=== PATIENT | female | born 1950 | race Caucasian/White ===

== ENCOUNTER 2018-09-02 15:11 | Outpatient (CLI) | payer MEDICARE, BC, SELFPAY ==
[2018-09-02 16:23] LABS: BUN 45 mg/dL (7-18); CREATININE 1.41 mg/dL (0.55-1.02); Chloride 103 mmol/L (98-107); Estimated GFR 36.98 (mL/min/1.73m2); Glucose 173 mg/dL (70-100); Potassium 4.2 mmol/L (3.5-5.1); Sodium 140 mmol/L (136-145)
[2018-09-03 11:08] LABS: Hepatitis C Ab w Rflx HCV PCR Negative (NEGAT)
== END 2018-09-02 15:31 ==
PROVIDERS: PCP Student in an Organized Health Care Education/Training Program; Visit Provider Student in an Organized Health Care Education/Training Program
DX: Z11.9 Encounter for screening for infectious and parasitic diseases, unspecified (principal); N18.9 Chronic kidney disease, unspecified; T50.905A Adverse effect of unspecified drugs, medicaments and biological substances, initial encounter
CPT/HCPCS: 36415; 80048; 86803

== ENCOUNTER 2018-12-01 00:15 | Outpatient (CLI) | payer MEDICARE, BC, SELFPAY ==
--- NOTE | 2018-12-01 14:26 | DI.MAMMO_ITS ---
SYMPTOMS/DIAGNOSIS: SCREENING, Z12.31 MAMMOGRAM: Mammograms were interpreted according to the usual protocol including computer analysis with CAD system, tomosynthesis and C view imaging. The breasts are of moderate density with fairly symmetric distribution of fibroglandular tissue. No dominant mass or clumped microcalcification is identified in either breast. The current examination is compared with previous examinations including April 2016 and there has been no gross interval change in appearance in comparison with the previous studies. CONCLUSION: No specific evidence of malignancy at this time. Routine screening examinations are suggested at yearly intervals due to the family history of breast carcinoma. Category I. Breast density Category B. MQSA ASSESSMENT OF FINDINGS: Negative. Category 1. Patient will receive a letter notifying them of these results. BI-RADS category B. There are scattered areas of fibroglandular density.
== END 2018-12-01 00:35 ==
PROVIDERS: PCP Student in an Organized Health Care Education/Training Program; Visit Provider Student in an Organized Health Care Education/Training Program
DX: Z12.31 Encounter for screening mammogram for malignant neoplasm of breast (principal)
CPT/HCPCS: 77063; 77067

== ENCOUNTER 2019-11-19 03:08 | Outpatient (CLI) | payer MEDICARE, BC, SELFPAY ==
[2019-11-19 10:59] LABS: HCT 38.3 % (36.0-46.0); MCH 28.9 pg (27.0-33.0); MCHC 31.3 % (32.0-36.0); MCV 92.3 fL (80-95); MPV 10.6 fL (8.0-11.0); Platelet Count 257 10^3/uL (130-400); RBC 4.15 10^6/uL (3.93-5.22); RDW 13.5 % (11.7-14.6); RDW-SD 45.7 fL; WBC 7.71 10^3/uL (4.4-10.8)
[2019-11-19 11:09] LABS: Hemoglobin A1C 8.2 % (3.8-5.6)
[2019-11-19 11:53] LABS: ALT 15 U/L (14-59); AST 15 U/L (15-37); Albumin 3.8 g/dL (3.4-5.0); Alkaline Phosphatase 98 U/L (46-116); Anion Gap 9.7 mmol/L (3-11); BUN 36 mg/dL (7-18); Bilirubin, Total 0.3 mg/dL (0.2-1.0); CO2 29.3 mmol/L (21.0-32.0); CREATININE 1.68 mg/dL (0.55-1.02); Calcium 10.3 mg/dL (8.5-10.1); Chloride 103 mmol/L (98-107); Estimated GFR 30.04 (mL/min/1.73m2); Glucose 163 mg/dL (74-106); LDH 167 U/L (81-234); Magnesium 1.4 mg/dL (1.8-2.4); PHOSPHORUS 4.2 mg/dL (2.6-4.7); Potassium 4.3 mmol/L (3.5-5.1); Sodium 142 mmol/L (136-145)
[2019-11-19 12:04] LABS: Calculated LDL 65 mg/dL (<100); Cholesterol 146 mg/dL (<200); HDL Cholesterol 56 mg/dL (40-60); Triglyceride 127 mg/dL (<150)
[2019-11-24 15:02] LABS: PTH-Related Peptide 0.5 pmol/L (< or = 4.2)
== END 2019-11-19 03:28 ==
PROVIDERS: PCP Student in an Organized Health Care Education/Training Program; Visit Provider Student in an Organized Health Care Education/Training Program
DX: E11.22 Type 2 diabetes mellitus with diabetic chronic kidney disease (principal); I10 Essential (primary) hypertension; N18.3 Chronic kidney disease, stage 3 (moderate); Z79.4 Long term (current) use of insulin; E11.9 Type 2 diabetes mellitus without complications; E55.9 Vitamin D deficiency, unspecified; Z86.39 Personal history of other endocrine, nutritional and metabolic disease; M19.90 Unspecified osteoarthritis, unspecified site
CPT/HCPCS: 36415; 80053; 80061; 85027; 82397; 83036; 83615; 83735; 84100

== ENCOUNTER 2020-08-31 03:19 | Outpatient (CLI) | payer MEDICARE, BC, SELFPAY ==
[2020-08-31 14:35] LABS: Hemoglobin A1C 8.7 % (<5.7)
[2020-08-31 14:43] LABS: BUN 26 mg/dL (7-18); CREATININE 1.4 mg/dL (0.55-1.02); Calcium 8.9 mg/dL (8.5-10.1); Chloride 106 mmol/L (98-107); Estimated GFR 37.07 (mL/min/1.73m2); Glucose 139 mg/dL (74-106); Potassium 4.5 mmol/L (3.5-5.1); Sodium 144 mmol/L (136-145)
[2020-09-01 01:13] LABS: Vitamin D 25 Total 45.8 ng/mL (30-100)
== END 2020-08-31 03:20 | disposition home or self-care (01) ==
LOC: LBO 03:19
PROVIDERS: PCP Student in an Organized Health Care Education/Training Program; Visit Provider Student in an Organized Health Care Education/Training Program
DX: E11.22 Type 2 diabetes mellitus with diabetic chronic kidney disease (principal); N18.30 Chronic kidney disease, stage 3 unspecified; Z79.4 Long term (current) use of insulin; E55.9 Vitamin D deficiency, unspecified; E83.42 Hypomagnesemia
CPT/HCPCS: 36415; 80048; 82306; 83036; 83735

== ENCOUNTER 2021-03-01 02:44 | Outpatient (CLI) | payer MEDICARE, BC, SELFPAY ==
[2021-03-01 13:25] LABS: HCT 35.9 % (36.0-46.0); HGB 10.9 g/dL (11.2-15.7); MCH 27.8 pg (27.0-33.0); MCHC 30.4 % (32.0-36.0); MCV 91.6 fL (80-95); Platelet Count 256 10^3/uL (130-400); RBC 3.92 10^6/uL (3.93-5.22); RDW 13.9 % (11.7-14.6); RDW-SD 47.2 fL; WBC 8.93 10^3/uL (4.4-10.8)
[2021-03-01 16:10] LABS: Calcium 8.9 mg/dL (8.5-10.1); Glucose 222 mg/dL (74-106)
[2021-03-01 16:11] LABS: Anion Gap 8.2 mmol/L (3-11); BUN 27 mg/dL (7-18); CO2 29.8 mmol/L (21.0-32.0); CREATININE 1.5 mg/dL (0.55-1.02); Calculated LDL 77 mg/dL (<100); Chloride 104 mmol/L (98-107); Cholesterol 158 mg/dL (<200); Estimated GFR 34.13 (mL/min/1.73m2); HDL Cholesterol 54 mg/dL (40-60); Potassium 4.4 mmol/L (3.5-5.1); Sodium 142 mmol/L (136-145); TSH (W/Ref FT4) 2.53 uIU/mL (0.36-3.74); Triglyceride 135 mg/dL (<150)
== END 2021-03-01 02:45 | disposition home or self-care (01) ==
LOC: LBO 02:44
PROVIDERS: PCP Student in an Organized Health Care Education/Training Program; Visit Provider Student in an Organized Health Care Education/Training Program
DX: E11.22 Type 2 diabetes mellitus with diabetic chronic kidney disease; N18.30 Chronic kidney disease, stage 3 unspecified
CPT/HCPCS: 36415; 80048; 80061; 85027; 84443

== ENCOUNTER 2021-07-19 02:56 | Outpatient (CLI) | payer MEDICARE, BC, SELFPAY ==
[2021-07-19 13:06] LABS: HCT 36.2 % (36.0-46.0); MCH 28.1 pg (27.0-33.0); MCHC 30.4 % (32.0-36.0); MCV 92.6 fL (80-95); MPV 9.9 fL (8.0-11.0); Platelet Count 242 10^3/uL (130-400); RBC 3.91 10^6/uL (3.93-5.22); RDW 14.1 % (11.7-14.6); RDW-SD 47.9 fL; WBC 7.77 10^3/uL (4.4-10.8)
[2021-07-19 14:00] LABS: Anion Gap 5.4 mmol/L (3-11); BUN 28 mg/dL (7-18); CO2 30.6 mmol/L (21.0-32.0); CREATININE 1.4 mg/dL (0.55-1.02); Calcium 8.5 mg/dL (8.5-10.1); Chloride 103 mmol/L (98-107); Estimated GFR 36.96 (mL/min/1.73m2); Glucose 198 mg/dL (74-106); Potassium 4.1 mmol/L (3.5-5.1); Sodium 139 mmol/L (136-145)
== END 2021-07-19 02:57 | disposition home or self-care (01) ==
PROVIDERS: Visit Provider Student in an Organized Health Care Education/Training Program
DX: D64.9 Anemia, unspecified (principal); J45.909 Unspecified asthma, uncomplicated; N18.9 Chronic kidney disease, unspecified
CPT/HCPCS: 36415; 80048; 85027

== ENCOUNTER → 2021-10-11 01:10 | Outpatient (CLI) | payer MEDICARE, BC, SELFPAY ==
--- NOTE | 2021-10-11 13:46 | DI.MAMMO_ITS ---
Exam(s) MG MAMMO SCREENING 60 MIN DUR EXAM: MG MAMMO SCREENING 60 MIN DUR CLINICAL HISTORY: breast cancer screening, Z12.39 TECHNIQUE: Bilateral full field digital CC and MLO mammographic images were obtained with 3D tomosyn thesis and utilizing computer aided detection (CAD). COMPARISON: Available for comparison. FINDINGS: Masses/Architectural Distortion: None seen. Microcalcifications: No suspicious pleomorphic-type are seen. Skin Thickening/Nipple Retraction: None. IMPRESSION: 1. No significant interval change with no specific features of malignancy noted. 2. Unless there is more urgent need, screening mammography is recommended, as per [employer] guidelines. BI-RADS Category 1 - Negative Breast Density - Category B - Scattered areas of fibroglandular density Breast density category C or D implies that the patient has dense breast tissue. Dense breast tissue is very common and is not abnormal but dense breast tissue can make it harder to find cancer on a ma mmogram. Also, dense breast tissue may increase their breast cancer risk. This information about the result of the mammogram report was provided to the patient to raise their awareness. Use this report when you speak with the patient about their risks for breast cancer, which includes their family hist ory. At that time, you may recommend for more screening tests (Ultrasound or MRI) as they might be us eful based on their risk. A negative radiographic report should not delay biopsy if a dominant or clinically suspicious mass is present. Up to ten percent of cancers are not identified on mammography. A negative report may reinforce clinical impression. Adenosis and dense breasts may obscure an underlying neoplasm. False positive reports average 6 to 10%. Patient will receive a letter notifying them of these results.
== END ==
PROVIDERS: PCP Student in an Organized Health Care Education/Training Program; Visit Provider Student in an Organized Health Care Education/Training Program
DX: Z12.31 Encounter for screening mammogram for malignant neoplasm of breast (principal)
CPT/HCPCS: 77063; 77067

== ENCOUNTER 2022-08-14 14:36 | Outpatient (REF) | payer MEDICARE, BC, SELFPAY ==
[2022-08-14 15:52] LABS: Iron 41 ug/dL (50-170); Total Iron Binding Capacity 270 ug/dL (250-450); Transferrin Sat 15 % (15-50)
[2022-08-14 16:14] LABS: Ferritin 83 ng/mL (8-252); Folate 9.8 ng/mL (8.6-20.0); Vitamin B12 1487 pg/mL (193-986)
== END 2022-08-14 14:37 | disposition home or self-care (01) ==
LOC: LBN 14:36
PROVIDERS: PCP Student in an Organized Health Care Education/Training Program; Visit Provider Student in an Organized Health Care Education/Training Program
DX: R20.2 Paresthesia of skin; R53.83 Other fatigue; Z86.2 Personal history of diseases of the blood and blood-forming organs and certain disorders involving the immune mechanism; E63.9 Nutritional deficiency, unspecified; K21.9 Gastro-esophageal reflux disease without esophagitis; K90.9 Intestinal malabsorption, unspecified
CPT/HCPCS: 82607; 82728; 82746; 83540; 83550

== ENCOUNTER 2022-11-23 00:41 | Outpatient (CLI) | payer MEDICARE, BC, SELFPAY ==
--- OUTSIDE RECORDS SUMMARY | 2022-02-02 00:29 | XMS_ITS | Encounter Summary ---
:1950 Author Organization [facility] [place] [address] Care Team Providers Name Role Phone Amanda Barnett DO Primary Care Provider Encounter Details Date Type Department Care Team Description 07/27/2019 TH Visit Nephrology Denilson Rendon, CKD (chron ic kidney (TeleHealth) [place] [facility] [place] disease[place] stage 3, [facility] MEDICAL GFR 30-59 ml/min [facility] [address] NEPHROLOGY DEPT. [phone] [place] [id number] Social History Tobacco Use Types Packs/Day Years Used Date Former Smoker Cigarettes Quit: 04/04/19 99 Smokeless Tobacco: Never Used Alcohol Use Standard Drinks/Week Comments No 0 (1 standard drink = 0.6 oz pure alcoho l) Sex Assigned at Date Recorded Not on file documented as of this encounter Last Filed Vital Signs Vital Sign Reading Time Taken Comments Blood Pressure 114/77 07/27/2019 2:23 PM EDT Pulse 84 07/27/2019 11:59 AM EDT Temperature - - Respiratory Rate - - Oxygen Saturation - - Inhaled Oxygen Concentration - - Weight 124.7 kg (275 lb) 07/27/2019 11:59 AM EDT Height - - Body Mass Index 46.38 05/19/2019 1:15 PM EST documented in this encounter Progress Notes Denilson Rendon MD - 07/27/2019 2:00 PM EDT 68 y/o woman for follow up of CKD This encounter took place by phone because of the public health crisis from [place] [id number], the patient shelters at home and feels well The patient was last seen in this clinic in April 2018, she had a cold this winter, she reports her diabetes is in good control, using a glucose monitoring system The patient has ankle swelling at times, had physical therapy which was cancelled because of the epidemic She noted some bubbles in her urine at times, she uses Lisinopril as prescribed, no NSAIDS except acetaminophen A review of systems was negative The patient checks her home BP, this morning when nurses called was 148/77, patient reports that device was put on upside down, BP 114/77 when device placed properly Medications: Current Outpatient Medications: ??? fluticasone propion-salmeteroL (Wixela Inhub) 100-50 mcg/dose Disk with Device, Inhale 1 puff into the lungs every 12 hours., Disp: , Rfl: ??? famotidine (Pepcid) 40 mg Tablet, Take 40 mg by mouth daily., Disp: , Rfl: ??? alogliptin 12.5 mg Tablet, Take 12.5 mg by mouth daily. Patient has not started yet!, Disp: , Rfl: ??? linaGLIPtin (Tradjenta) 5 mg Tablet, Take 5 mg by mouth daily., Disp: , Rfl: ??? insulin glulisine U-100 (Apidra SoloStar U-100 Insulin) 100 unit/mL Insulin Pen, Inject 2-10 Units subcutaneously 2 times daily (before meals). (Patient taking differently: Inject 2-10 Units subcutaneously 2 times daily (before meals). PRN), Disp: 30 mL, Rfl: 1 ??? fluorouracil (EFUDEX) 5 % Cream, Apply a thin layer to affected areas on the right cheek and nose twice daily (morning and night) as tolerated for 3 weeks, Disp: 40 g, Rfl: 0 ??? glimepiride (AMARYL) 1 mg Tablet, Take 1 mg by mouth every morning (before breakfast)., Disp: , Rfl: ??? hydroCHLOROthiazide (MICROZIDE) 12.5 mg Capsule, Take 12.5 mg by mouth daily., Disp: , Rfl: ??? insulin degludec (TRESIBA FLEXTOUCH U-100) 100 unit/mL (3 mL) Insulin Pen, Inject 34 Units subcutaneously nightly., Disp: , Rfl: ??? acetaminophen (TYLENOL) 500 mg Tablet, Take 1,000 mg by mouth every 6 hours as needed for Pain.,Disp: , Rfl: ??? tiotropium (SPIRIVA WITH HANDIHALER) 18 mcg Capsule, w/Inhalation Device, Daily, Disp: , Rfl: ??? lisinopril (PRINIVIL;ZESTRIL) 30 mg Tablet, Take 15 mg by mouth daily., Disp: , Rfl: ??? PROAIR HFA 90 mcg/actuation inhaler, Inhale 2 puffs into the lungs as needed. Reported on 09/25/2016, Disp: , Rfl: ??? OXYGEN-AIR DELIVERY SYSTEMS (WALKABOUT 2 OXYGEN SYSTEM MISC), by [facility]Non- Drug; Combo Route) route as needed., Disp: , Rfl: ??? Calcium Carbonate-Vitamin D3 (CALCIUM 500 + D) 500 mg(1,250mg) -400 unit Chew, Take by mouth daily., Disp: , Rfl: ??? atorvastatin (LIPITOR) 40 mg tablet, Take 40 mg by mouth daily., Disp: , Rfl: ??? cyanocobalamin, vitamin B-12, 250 mcg tablet, Take 1,000 mcg by mouth daily., Disp: , Rfl: ??? aspirin 81 mg EC tablet, Take 81 mg by mouth daily., Disp: , Rfl: ??? pramoxine (PROCTOFOAM) 1 % foam, , Disp: , Rfl: Allergies Allergen Reactions ??? Byetta [Exenatide] STOMACH CRAMPS ??? Metformin Diarrhea ??? Morphine Sulfate Nausea And Vomiting Physical exam: Most Recent Vitals: 07/27/19 1423 BP: 114/77 Pulse: no dyspnea, no distress No edema reported Labs: Results for PENNIE RODRIGUEZ ( ) as of 07/27/2019 14:04 Ref. Range 05/19/2019 10:59 05/19/2019 12:02 WBC Latest Ref Range: 4.0 - 9.5 x10(3)/mcL 8.9 RBC Latest Ref Range: 4.00 - 5.21 x10(6)/mcL 3.94 (L) Hemoglobin Latest Ref Range: 11.7 - 15.5 gm/dL 11.5 (L) Hematocrit Latest Ref Range: 35.7 - 45.8 % 37.4 MCV Latest Ref Range: 82.6 - 94.4 fL 94.9 (H) MCH Latest Ref Range: 27.1 - 32.0 pg 29.2 MCHC Latest Ref Range: 31.7 - 35.0 gm/dL 30.7 (L) RDWSD Latest Ref Range: 37.0 - 46.0 fL 50.3 (H) RDWCV Latest Ref Range: 11.5 - 14.1 % 14.4 (H) Platelets Latest Ref Range: 145 - 357 x10(3)/mcL 226 MPV Latest Ref Range: 7.6 - 12.9 fL 11.0 nRBC % Auto Latest Units: % 0.0 nRBC Abs Auto Latest Ref Range: 0.000 - 0.000 x10(3)/mcL 0.000 Neutr Abs (ANC) Latest Ref Range: 1.70 - 6.10 x10(3)/mcL 6.78 (H) Neutrophils % Latest Units: % 76.1 Immature Gran % Latest Units: % 0.60 Lymphocytes % Latest Units: % 14.1 Monocytes % Latest Units: % 7.6 Eosinophils % Latest Units: % 0.9 Basophils % Latest Units: % 0.7 Shanae Gran Abs Latest Ref Range: 0.00 - 0.04 x10(3)/mcL 0.05 (H) Lymphocytes Abs Latest Ref Range: 0.9 - 3.2 x10(3)/mcL 1.3 Monocyte Abs Latest Ref Range: 0.3 - 0.9 x10(3)/mcL 0.7 Eosinophils Abs Latest Ref Range: 0.0 - 0.4 x10(3)/mcL 0.1 Basophils Abs Latest Ref Range: 0.0 - 0.1 x10(3)/mcL 0.1 Sodium Latest Ref Range: 135 - 145 mmol/L 143 Potassium Latest Ref Range: 3.5 - 5.0 mmol/L 4.6 Chloride Latest Ref Range: 98 - 107 mmol/L 105 CO2 Latest Ref Range: 22 - 31 mmol/L 26 Anion Gap Latest Ref Range: 5 - 15 mmol/L 12 BUN Latest Ref Range: 8 - 18 mg/dL 27 (H) Creatinine Latest Ref Range: 0.70 - 1.20 mg/dL 1.36 (H) eGFR Latest Ref Range: >=60 mL/min/1.73 m?? 39 (L) eGFR Latest Ref Range: >=60 mL/min/1.73 m?? 46 (L) Calcium Latest Ref Range: 8.5 - 10.5 mg/dL 9.2 Phosphorus Latest Ref Range: 2.5 - 4.5 mg/dL 3.8 Glucose Lvl Latest Ref Range: 65 - 199 mg/dL 132 Total Protein Latest Ref Range: 6.1 - 8.0 gm/dL 6.9 Albumin Latest Ref Range: 3.2 - 5.2 gm/dL 3.8 Total Bilirubin Latest Ref Range: 0.2 - 1.3 mg/dL 0.2 Alk Phos Latest Ref Range: 35 - 105 unit/L 102 AST Latest Ref Range: 0 - 30 unit/L 12 ALT Latest Ref Range: 0 - 30 unit/L 11 LDH Latest Ref Range: 110 - 220 unit/L 181 PTH Latest Ref Range: 15 - 65 pg/mL 79 (H) CT CHEST WO CONTRAST (GENERIC) Unknown Rpt A/P: The patient remains in stage 3 CKD with some ups and downs of the serum creatinine The patient is using Lisinopril and her BP is well controlled Risk factors for worsening renal function were discussed Secondary hyperparathyroidism is present with the PTH in the recommended target range The patient reports some bubbles when she urinates, likely from strong jet or detergent as the patient never had proteinuria before but would recommend to send a spot urine for microalbuminuria the next time she visits her PCP 15 minutes of this 25 minute encounter were spent with counseling RTc in a year with labs documented in this encounter Plan of Treatment Upcoming Encounters Date Type Specialty Care Team Description 04/04/2022 Office Visit Dermatology Celena Salazar MD [facility] ER [address], [place] [address] (Wo rk) documented as of this encounter Visit Diagnoses Diagnosis CKD (chronic kidney disease) stage 3, GF R 30-59 ml/min Chronic kidney disease, Stage III (moder ate) documented in this encounter Care Teams Finish Filer Relationship Specialty Start Date End Date Amanda Barnett DO PCP - General Family Medicine 06/19/[address] [place] [address] documented as of this encounter
--- OUTSIDE RECORDS SUMMARY | 2022-02-02 00:29 | XMS_ITS | Encounter Summary ---
:1950 Author Organization [facility] [place] [address] Care Team Providers Name Role Phone Amanda Barnett DO Primary Care Provider Encounter Details Date Type Department Care Team Description 06/14/2021 Telephone Endocrinology at [facility] [place] [address] Social History Tobacco Use Types Packs/Day Years Used Date Former Smoker Cigarettes Quit: 04/04/19 99 Smokeless Tobacco: Never Used Alcohol Use Standard Drinks/Week Comments No 0 (1 standard drink = 0.6 oz pure alcoho l) Sex Assigned at Date Recorded Not on file documented as of this encounter Plan of Treatment Upcoming Encounters Date Type Specialty Care Team Description 04/04/2022 Office Visit Dermatology Celena Salazar MD [facility] [address], [place] [address] (Wo rk) documented as of this encounter Visit Diagnoses Not on filedocumented in this encounter Care Teams Rocket Engine Tester Relationship Specialty Start Date End Date Amanda Barntet DO PCP - General Family Medicine 06/19/[address] [place] [address] documented as of this encounter
--- OUTSIDE RECORDS SUMMARY | 2022-02-02 00:29 | XMS_ITS | Encounter Summary ---
:1950 Author Organization [facility] [place] [address] Care Team Providers Name Role Phone Anibal Amanda Alba LAURENT Primary Care Provider Reason for Visit Reason Onset Date Comments Pump/sensor 01/03/2021 Encounter Details Date Type Department Care Team Description 01/03/2021 Telephone Endocrinology at [facility] C Princess Fay Pump/[place] [address] Social History Tobacco Use Types Packs/Day Years Used Date Former Smoker Cigarettes Quit: 04/04/19 99 Smokeless Tobacco: Never Used Alcohol Use Standard Drinks/Week Comments No 0 (1 standard drink = 0.6 oz pure alcoho l) Sex Assigned at Date Recorded Not on file documented as of this encounter Miscellaneous Notes Telephone Encounter - Princess Fay - 01/03/2021 7:16 AM EDT Documentation request received from [employer]. 11/25/18 office notes routed Confirmed 01/03 documented in this encounter Plan of Treatment Upcoming Encounters Date Type Specialty Care Team Description 04/04/2022 Office Visit Dermatology Celena Salazar MD [facility] ER [address], [place] [address] (Wo rk) documented as of this encounter Visit Diagnoses Not on filedocumented in this encounter Care Teams Brick Mason Relationship Specialty Start Date End Date Amanda Barnett DO PCP - General Family Medicine 06/19/[address] [place] [address] documented as of this encounter
--- OUTSIDE RECORDS SUMMARY | 2022-02-02 00:29 | XMS_ITS | Encounter Summary ---
:1950 Author Organization [facility] [address] Care Team Providers Name Role Phone Amanda Barnett Primary Care Provider Reason for Visit Reason Comments Skin Lesion Encounter Details Date Type Department Care Team Description 10/06/2020 [facility] [address] [place] [address] [facility] [place], [place] [address] (Wo rk) Social History Tobacco Use Types Packs/Day Years Used Date Former Smoker Cigarettes Quit: 04/04/19 99 Smokeless Tobacco: Never Used Alcohol Use Standard Drinks/Week Comments No 0 (1 standard drink = 0.6 oz pure alcoho l) Sex Assigned at Date Recorded Not on file documented as of this encounter Progress Notes Rama Salazar MD - 10/06/2020 3:30 PM EDT Images from the original note were not included. DEPARTMENT OF DERMATOLOGY Established Patient Clinic Note Provider: RAMA SALAZAR MD Patient Preferences Preferred name Pennie Preferred contact method for results [x] Home [] Cell [] MyD-H [] Other: Permission to leave detailed message including results Yes Permission to discuss care with Ochoa Relevant social history Occupation: Retired, [employer] Marital status: Lives with son Past Medical History Y/N Date, location, treatment Melanoma N DN N SCC N BCC N AK Y LN2, 5-FU Immunosuppression or malignancy Y Lung cancer S/P left pneumonectomy Blistering sunburns or tanning bed use Other relevant past skin history Y - Keratosis pilaris - Xerosis - Nevus (right chest) - Skin tags Family History Y/N Parents, siblings, children Melanoma N NMSC Y Father Other N Procedure Screening Questions Y/N Allergies to lidocaine or epinephrine N Blood thinners Yes: ASA 81mg Pacemaker or defibrillator N History of Present Illness: Pennie Rodriguez is a 69 y.o. established patient, last seen by me on 11/10/2018. Patient returns to clinic today for a focused exam with the following concerns: - 4 lesions on the nose and cheeks that have been present for 1+ year. She completed the 5-FU treatment to the nose, but the lesions did not resolve with this treatment. One of the lesions on the nose has bled with picking and is sore. Last FSE: None (waist up exams in the past) Medications: Reviewed in eD-H Allergies: Reviewed in eD-H Skin Examination: A focused skin examination of the face, significant for the following: Significant Findings/Assessment/Plan A. Actinic Keratoses - Ill-defined gritty papules on the left cheek x 1, left nasal tip x 1, right paranasal x 1, right nasal bridge x 1. - Explained premalignant potential of these lesions. - Discussed treatment with cryotherapy. Patient elects to proceed with cryotherapy today. - Instructed patient to return to clinic for re-evaluation if lesion(s) does not resolve as expectedwith this treatment. Procedure: Destruction of lesion(s) with cryotherapy (LN2). Location(s): As noted above. Number: 4 Discussed procedure and expectations, including risks and benefits. Verbal consent obtained. Treatedwith LN2. There were no complications; Patient tolerated the procedure well. Post-procedure expectations and wound care reviewed. Other: - Discussed importance of sun protection (protective clothing and SPF 30+ broad- spectrum sunscreen) and sun avoidance strategies. Follow Up: RTC in 2 months for: [] FSE [x] Follow up - AKs [x] Note routed to bilingual secretary to schedule [] Recall placed in scheduling system [] Appointment scheduled before exiting If any questions or concerns arise, patient is welcome to return to clinic sooner. Xiomy Tripathi and Blossom Mccann CMA have performed the documentation for this encounter in the presence of and acting as scribes for RAMA SALAZAR MD. I performed the above scribed service and agree with the accuracy of the documentation in this encounter. Reviewed and signed by: RAMA SALAZAR MD Department of Dermatology [facility] documented in this encounter Plan of Treatment Upcoming Encounters Date Type Specialty Care Team Description 04/04/2022 Office Visit Dermatology Rama Salazar MD [facility] ER [address] [place], [place] [address] (Wo rk) documented as of this encounter Visit Diagnoses Diagnosis Actinic keratoses Actinic keratosis documented in this encounter Care Teams Bobbin Cleaning Machine Operator Relationship Specialty Start Date End Date Amanda Barnett DO PCP - General Family Medicine 06/19/[address] [place] [address] documented as of this encounter
--- OUTSIDE RECORDS SUMMARY | 2022-02-02 00:29 | XMS_ITS | Encounter Summary ---
:1950 Author Organization [facility] [place] [address] Care Team Providers Name Role Phone Amanda Barnett DO Primary Care Provider Reason for Visit Reason Comments Follow-up Encounter Details Date Type Department Care Team Description 10/19/2021 Office Visit Dermatology at [facility] (seborrheic keratosis); Mao Franz MD Actinic skin damage; [address] [facility] History of [place] [address] [phone] [facility] [place], [place] [address] Social History Tobacco Use Types Packs/Day Years Used Date Former Smoker Cigarettes Quit: 04/04/19 99 Smokeless Tobacco: Never Used Alcohol Use Standard Drinks/Week Comments No 0 (1 standard drink = 0.6 oz pure alcoho l) Sex Assigned at Date Recorded Not on file documented as of this encounter Patient Instructions Patient InstructionsSiobhan Blossom Johnny, WEB SITE ADMIN - 10/19/2021 2:17 PM EDT Images from the original note were not included. How to use 5-fluorouracil (Efudex) 5% cream Area(s) to be treated: nose Treatment length: Twice daily (morning and evening) for 6 weeks. Instructions for use: Wash your hands before applying. Wash area with a gentle cleanser and pat dry. Use a clean fingertip to apply a small amount to the affected area. Use just enough to cover the area with a thin film. Avoid your eyes, nostrils and mouth. (Note: Even when treating the entire face, apea-sized amount should be sufficient.) Rub cream into skin. Do NOT cover with a Band-Aid or other coverings. Wash your hands after applying. After 1 hour, you may apply moisturizer, sunscreen and/or makeup to the area. What to expect: Reactions vary from person to person. During this treatment, your skin may become red, inflamed, irritated (i.e., burning, crusting, weeping, oozing, etc.) and potentially tender or painful. This is a normal reaction. After the treatment period is complete, your skin will take several weeks to heal com pletely. For discomfort, you may take Tylenol or ibuprofen. You may also apply wet compresses as well as petroleum jelly, such as Vaseline or Aquaphor, to soothe the skin. While you should expect some [id number]-[id number] discomfort and tenderness, if pain is excessive and interferes with daily activity or keeps you awake at night, you may pause treatment for 1-2 days. Please contact the clinic if you develop a fever or a thick yellow/honey-colored crust over the treated area. Warnings: - Use only as directed. - Keep out of reach from children and pets - Do not share this medication. - Do not use other topical or medicated products on the treatment area unless instructed to do so byyour doctor. The photos below represent normal reaction during treatment (L-R: Day 6, Day 16, Day 18) documented in this encounter Progress Notes Rama Salazar MD - 10/19/2021 2:00 PM EDT Images from the original note were not included. DEPARTMENT OF DERMATOLOGY Medical Dermatology Clinic Provider: ARMA SALAZAR MD Patient's preferred name Pennie Preferred contact method for results [x]Phone []myD-H []Letter Detailed phone message OK? Yes Are there any other people with whom we may discuss your care? [place] Past Medical History Date, location, treatment Melanoma N Dysplastic nevi N SCC N BCC N AKs LN2, 5-FU Other relevant past medical history Lung cancer S/P left pneumonectomy - Keratosis pilaris - Xerosis - Nevus (right chest) - Skin tags?? Family History Details Melanoma N NMSC Father Other relevant family history N Social History Occupation: Retired, [employer] Marital status:?? Lives with son Pre-Procedure Questions Details Allergy to lidocaine, epinephrine N Blood thinners N Pacemaker, defibrillator N History of Present Illness: Pennie Rodriguez is a 70 y.o. Patient returns to clinic today for a focusedexam with the following concerns: - Lesion under the right breast that is rough. She has been applying triamcinolone ointment to the area with minimal improvement. The lesion is asymptomatic and has been present for 6 months. She had amammogram done recently, which she states was normal. - Peeling on the nose that has been present 1+ year. She reports that the peeling has improved aftertreatment with cryotherapy. Last visit at Dermatology: 10/06/2020 Last visit with this provider: 10/06/2020 Medications: Reviewed in eD-H Allergies: Reviewed in eD-H Skin Examination: Focused skin examination of the face and right inframammary was normal with the exception of the findings below. Assessment/Plan A. Diffuse Actinic Damage - Diffuse actinic damage on the nose with no overt actinic keratoses. - Explained premalignant potential of these lesions. - Discussed treatment options (LN2, 5-FU) and their respective risks and benefits. - Patient elects to proceed with 5-FU treatment. - Start Rx 5-fluorouracil (Efudex) 5% cream: Apply a thin layer to affected areas on the nose twice daily (morning and night) as tolerated for 6 weeks. - Reviewed expectations, typical reaction, and restrictions on light exposure during treatment. Patient understands that affected area will likely become red, irritated and tender during treatment and that this is a normal reaction. Discussed option to hold treatment for 1-2 days if inflammation becomes too intense or patient experiences discomfort. - Instructed patient to return to clinic for re-evaluation if lesion(s) does not resolve as expectedwith this treatment. B. History of Actinic Keratoses - Right and left cheek clear on exam today. - S/P 3 weeks of efudex treatment to the right cheek as well as cryotherapy to the left cheek. - NER; will continue to clinically monitor C. Seborrheic Keratosis - Stuck on, waxy papule on the right inframammary. - Discussed benign nature of lesions and provided reassurance. No treatment necessary at this time. Other: ??? N/A RTC: 6 months for follow up of AKs []Note routed to secretary board of commissioners []Recall placed in scheduling system [x]Appointment scheduled at checkout Scribe attestation: Blossom Mccann CMA has performed the documentation for this encounter in the presence of and acting as a scribe for RAMA SALAZAR MD. I performed the above scribed service and agree with the accuracy of the documentation in this encounter. Reviewed and signed by: RAMA SALAZAR MD Dermatology [facility] documented in this encounter Plan of Treatment Upcoming Encounters Date Type Specialty Care Team Description 04/04/2022 Office Visit Dermatology Rama Salazar MD [facility] [address] TH[address] LE[address] [place], [place] [address] (Wo rk) documented as of this encounter Visit Diagnoses Diagnosis SK (seborrheic keratosis) Other seborrheic keratosis Actinic skin damage Other chronic dermatitis due to solar ra diation History of actinic keratosis Personal history of diseases of skin and subcutaneous tissue documented in this encounter Care Teams Fire Investigator Relationship Specialty Start Date End Date Amanda Barnett DO PCP - General Family Medicine 06/19/[address] [place] [address] documented as of this encounter
--- OUTSIDE RECORDS SUMMARY | 2022-02-02 00:29 | XMS_ITS | Encounter Summary ---
:1950 Author Organization [facility] [place] [address] Care Team Providers Name Role Phone Amanda Barnett DO Primary Care Provider Reason for Visit Reason Onset Date Comments Pump/sensor 07/27/2019 Encounter Details Date Type Department Care Team Description 07/27/2019 Telephone Endocrinology at [facility] Princess [place] Pump/[place] [address] Social History Tobacco Use Types Packs/Day Years Used Date Former Smoker Cigarettes Quit: 04/04/19 99 Smokeless Tobacco: Never Used Alcohol Use Standard Drinks/Week Comments No 0 (1 standard drink = 0.6 oz pure alcoho l) Sex Assigned at Date Recorded Not on file documented as of this encounter Miscellaneous Notes Telephone Encounter - Princess Fay - 08/12/2019 4:16 PM EDT Confirmed 07/28 Telephone Encounter - Princess Fay - 07/27/2019 4:08 PM EDT DWO received from [employer]. Filled out. Office note printed Dr. Avelar will sign. I will fax. documented in this encounter Plan of Treatment Upcoming Encounters Date Type Specialty Care Team Description 04/04/2022 Office Visit Dermatology Celena Salazar MD [facility] [address] [place] [address] (Wo rk) documented as of this encounter Visit Diagnoses Not on filedocumented in this encounter Care Teams Hall Manager Relationship Specialty Start Date End Date Amanda Barnett DO PCP - General Family Medicine 06/19/[address] [place] [address] documented as of this encounter
--- OUTSIDE RECORDS SUMMARY | 2022-02-02 00:29 | XMS_ITS | Clinical Summary ---
:1950 Author Organization [facility] [place] [address] Care Team Providers Name Role Phone Amanda Barnett DO Primary Care Provider Allergies Active Allergy Reactions Severity Noted Date Comments Exenatide 09/09/2017 STOMACH CRAMPS Metformin Diarrhea 09/09/2017 Morphine Sulfate Nausea And Vomiting Low Medications Medication Sig Dispensed Refills Start End Date Status Date pramoxine (PROCTOFOAM) 1 0 Active % foam 0 aspirin 81 mg EC tablet Take 81 mg by mouth 0 Active daily. cyanocobalamin, vitamin Take 1,000 mcg by 0 Active B-12, 250 mcg tablet mouth daily. atorvastatin (LIPITOR) Take 40 mg by mouth 0 Active 40 mg tablet daily. OXYGEN-AIR DELIVERY by Mis.(Non-Drug; 0 Active SYSTEMS (WALKABOUT 2 Combo Route) route OXYGEN SYSTEM MISC) as needed. PROAIR HFA 90 Inhale 2 puffs into 0 Active mcg/actuation inhaler the lungs as 3 needed. Reported on 09/25/2016 lisinopril Take 15 mg by mouth 0 Active (PRINIVIL;ZESTRIL) 30 mg daily. 5 Tablet tiotropium (Spiriva) 18 Daily 0 Active mcg Capsule, 8 w/Inhalation Device glimepiride (AMARYL) 1 Take 1 mg by mouth 0 Active mg Tablet every morning (before breakfast). hydroCHLOROthiazide Take 12.5 mg by 0 Active (MICROZIDE) 12.5 mg mouth daily. Capsule insulin degludec Inject 34 Units 0 Active (Insulin Tresiba subcutaneously FlexTouch U-100) 100 nightly. unit/mL (3 mL) Insulin Pen acetaminophen (TYLENOL) Take 1,000 mg by 0 Active 500 mg Tablet mouth every 6 hours as needed for Pain. insulin glulisine U-100 Inject 2-10 Units 30 mL 1 06/04/19 2 Active (Apidra SoloStar U-100 subcutaneously 2 0 Insulin) 100 unit/mL times daily (before Insulin Pen meals). Additional Information Patient taking differently: 2-10 Units Subcutaneous 2 TIMES DAILY BEFORE MEALS, PRN, Reported on 07/27/2019 fluticasone propion-salmeteroL Inhale 1 puff into the 0 Active (ADVAIR) 100-50 mcg/dose Disk with lungs every 12 hours. Device famotidine (Pepcid) 40 mg Tablet Take 40 mg by mouth 0 Active daily. linaGLIPtin (Tradjenta) 5 mg Tablet Take 5 mg by mouth 0 Active daily. MAGNESIUM ORAL Take by mouth. 0 Active cholecalciferol, Vitamin D3, 25 mcg Take by mouth daily. 0 Active (1,000 unit) Capsule fluorouraciL (Efudex) 5 % Apply twice daily 40 g 0 2021 Active CreamIndications: Actinic skin (morning and night) to damage the nose for 6 weeks. Active Problems Problem Noted Date AK (actinic keratosis) 2015 KP (keratosis pilaris) 2015 Xerosis cutis 2015 Pseudophakia of both eyes (OD - 03/15/15, OS - 5) 04/20/2015 IDDM (insulin dependent diabetes mellitus) 08/03/2013 Myopia 08/03/2013 Presbyopia OU 08/03/2013 Obesity 07/28/2012 Hyperlipidemia 07/28/2012 Asthma 09/05/2010 Diabetes mellitus type II 09/05/2010 Squamous cell carcinoma of lung, left 09/05/2010 Cancer Staging: Clinical: 3A - Unsigned Pathologic: 3A - Unsigned Overview: female with resected stage IIIA (pT2N2) non-small cell lung cancer status post adjuvant chemotherapy and postoperative thoracic radiation therapy now returning for reevaluation. Resolved Problems Problem Noted Date Resolved Date Cataracts, bilateral 08/03/2013 04/20/2015 Cellulitis 09/05/2010 11/10/2014 CIS - Entered not Verified 06/06/2010 11/10/2014 Immunizations Name Administration Dates Next Due Influenza PF, Split (High Dose) 01/14/2017 Influenza Vaccine w/Preservative, Split 01/13/2014 Influenza Vaccine, Whole 02/20/2006 Family History Medical History Relation Comments Glaucoma Maternal Aunt Glaucoma Maternal Grandfather Macular Degeneration Maternal Grandfather Glaucoma Maternal Grandmother Glaucoma Mother Macular Degeneration Mother Amblyopia Neg Hx Strabismus Neg Hx Relation Status Comments Maternal Aunt Maternal Grandfather Maternal Grandmother Mother Social History Tobacco Use Types Packs/Day Years Used Date Former Smoker Cigarettes Quit: 04/04/19 99 Smokeless Tobacco: Never Used Alcohol Use Standard Drinks/Week Comments No 0 (1 standard drink = 0.6 oz pure alcoho l) Sex Assigned at Date Recorded Not on file Last Filed Vital Signs Vital Sign Reading Time Taken Comments Blood Pressure 106/59 10/31/2020 2:51 PM EDT Pulse 87 10/31/2020 2:51 PM EDT Temperature 37.3 ??C (99.1 ??F) 05/19/2019 1:15 PM EST Respiratory Rate 20 05/19/2019 1:15 PM EST Oxygen Saturation 98% 05/19/2019 1:15 PM EST Inhaled Oxygen Concentration - - Weight 124.7 kg (275 lb) 07/27/2019 11:59 AM EDT Height 164 cm (5' 4.57) 05/19/2019 1:15 PM EST Body Mass Index 46.38 05/19/2019 1:15 PM EST Plan of Treatment Upcoming Encounters Date Type Specialty Care Team Description 04/04/2022 Office Visit Dermatology Celena Salazar MD [facility] [address] [place], [place] [address] (Wo rk) Health Maintenance Due Date Last Done Comments Covid-19 Vaccine (#1) 05/06/1951 Pneumoccocal Vaccine: 65+ (1 - 1954 PCV) Hepatitis C Screening 1966 Tdap adult 11/04/1967 Tetanus vaccine 11/04/1967 Breast Cancer Share Decision 1988 Needed Breast Cancer screening 1998 Zoster vaccine (1 of 2) 1998 Advance Directive 11/04/2003 Colonoscopy 05/08/2013 05/08/2006 (See prior EHR) Bone Density Scan 2013 DM Opthalmology Exam 11/13/2015 11/12/2014, 08/03/2013 DM Hemoglobin A1c 02/25/2019 11/25/2018, 05/19/2018, 02/13/2018, Additional history exists DM Urine Microalbumin yearly 05/19/2019 05/19/2018, 018, 05/06/2017, Additional history exists DM Creatinine yearly 05/19/2020 05/19/2019, 11/25/2018, 05/19/2018, Additional history exists Influenza (Flu) vaccine (1 of - 12/21/2021 01/14/2017, , Influenza standard series) 02/20/2006 Medical Devices Implanted Type Area Test Inspection Engineer Device Shelf Model / Identifier Expiration Serial / Date Lot Iol,Sn60wf,19.0 ([id number]) ([employer]) - [id number] IMPLANTS Left: 05/22/2019 SN60WF 19.0 / Implanted: Qty: 1 on 02/15/2015 by Vincent Lawler MD at [facility] - [id number] / [id number] Iol,Sn60wf,19.5 ([id number]) ([employer]) - [id number] IMPLANTS 10/20/2019 SN60WF 19.5 / Implanted: Qty: 1 on 03/15/2015 by Vincent Lawler MD at [facility] - [id number] / [id number] Insurance Payer Benefit Plan / Subscriber ID Effective Dates Phone Addre ss Type Group MEDICARE MEDICARE PART [id number] 2006-Presen [phone] [place] [phone] [facility] [id number] 1993-Presen [address] [place] [address] (Home) [place] [address] Care Teams Pharmacy Informaticist Relationship Specialty Start Date End Date Amanda Barnett DO PCP - General Family Medicine 06/19/[address] [place] [address]
--- OUTSIDE RECORDS SUMMARY | 2022-02-02 00:29 | XMS_ITS | Encounter Summary ---
:1950 Author Organization [facility] [place] [address] Care Team Providers Name Role Phone Amanda Barnett DO Primary Care Provider Reason for Visit Reason Onset Date Comments Other 07/27/2019 Pump/Sensor Encounter Details Date Type Department Care Team Description 07/27/2019 Telephone Endocrinology at [facility] Lashell Simpson Other (Pump/Sensor) [place] [address] Social History Tobacco Use Types Packs/Day Years Used Date Former Smoker Cigarettes Quit: 04/04/19 99 Smokeless Tobacco: Never Used Alcohol Use Standard Drinks/Week Comments No 0 (1 standard drink = 0.6 oz pure alcoho l) Sex Assigned at Date Recorded Not on file documented as of this encounter Miscellaneous Notes Telephone Encounter - Arun Garcia RN - 07/27/2019 3:31 PM EDT Per Melisa and documentation, this has marin faxed twice now. Returned call to pt, left voicemail that this has been sent in twice. Encouraged return call if she would like to speak. Telephone Encounter - Lashell Hoffman - 07/27/2019 2:59 PM EDT Caller and relationship to patient (if other than patient): Self Best time to reach caller:ct Message or Reason for Call: Patient has been waiting 3 weeks to hear back from someone about gettingthe senor from [employer]. Appt Needed and Reason: No, Call back Provider: Alonso documented in this encounter Plan of Treatment Upcoming Encounters Date Type Specialty Care Team Description 04/04/2022 Office Visit Dermatology Celena Salazar MD [facility] ER [address] [place], [place] [address] (Wo rk) documented as of this encounter Visit Diagnoses Not on filedocumented in this encounter Care Teams City Controller Relationship Specialty Start Date End Date Amanda Barnett DO PCP - General Family Medicine 06/19/[address] [place] [address] documented as of this encounter
--- OUTSIDE RECORDS SUMMARY | 2022-02-02 00:29 | XMS_ITS | Encounter Summary ---
:1950 Author Organization [facility] [place] [address] Care Team Providers Name Role Phone Amanda Barnett DO Primary Care Provider Reason for Visit Reason Onset Date Comments Pump/sensor 07/13/2019 Encounter Details Date Type Department Care Team Description 07/13/2019 Telephone Endocrinology at [facility] C Princess Fay Pump/[place] [address] Social History Tobacco Use Types Packs/Day Years Used Date Former Smoker Cigarettes Quit: 04/04/19 99 Smokeless Tobacco: Never Used Alcohol Use Standard Drinks/Week Comments No 0 (1 standard drink = 0.6 oz pure alcoho l) Sex Assigned at Date Recorded Not on file documented as of this encounter Miscellaneous Notes Telephone Encounter - Princess Fay - 07/13/2019 8:48 AM EDT Documentation request received from [employer]. 2 office notes routed Confirmed 07/12 documented in this encounter Plan of Treatment Upcoming Encounters Date Type Specialty Care Team Description 04/04/2022 Office Visit Dermatology Celena Salazar MD [facility] ER [address] TH[address]ESE [address] [place], [place] [address] (Wo rk) documented as of this encounter Visit Diagnoses Not on filedocumented in this encounter Care Teams Hot Tar Roofer Helper Relationship Specialty Start Date End Date Amanda Barnett DO PCP - General Family Medicine 06/19/[address] [place] [address] documented as of this encounter
--- OUTSIDE RECORDS SUMMARY | 2022-02-02 00:29 | XMS_ITS | Encounter Summary ---
:1950 Author Organization [facility] [place] [address] Care Team Providers Name Role Phone Amanda Barnett DO Primary Care Provider Encounter Details Date Type Department Care Team Description 10/31/2020 TH Visit Nephrology Denilson Rendon Stage 3 evangelist (TeleHealth) Hypertension at [facility] DR stage 3a [place] 3[place] [address] NEPHROLOGY DEPT. [phone] [place], [place] [address] Social History Tobacco Use Types [...] Pulse 87 10/31/2020 2:51 PM EDT Temperature - - Respiratory Rate - - Oxygen Saturation - - Inhaled Oxygen Concentration - - Weight - - Height - - Body Mass Index - - documented in this encounter Progress Notes Denilson Rendon MD - 10/31/2020 2:30 PM EDT 75 y/o woman for follow up of stage 3 CKD The patient elected to have this follow-up visit by phone rather than in person because of her lack of transport and mobility, the patient reports that she has been vaccinated against Covid, she has been well with no illness or hospitalization in the interim, the patient reports she made changes to her diet and she now has a home blood pressure monitoring device and has checked her blood pressure, the patient occasionally has to get up at night to urinate, no other urine changes were observed, no hematuria, no dysuria, the patient has no pain, the remaining review of systems was negative Not using NSAIDs Recent labs: 08/31/20 Na 144 K 4.5 Cl 106 CO2 30 BUN 26 creat 1.4 glu 139 HbA1c 8.7% Ca 8.9 Mg 2.0 Medications: Current Outpatient Medications: ??? cholecalciferol, Vitamin D3, 25 mcg (1,000 unit) Capsule, Take by mouth daily., Disp: , Rfl: ??? MAGNESIUM ORAL, Take by mouth., Disp: , Rfl: ??? fluticasone propion-salmeteroL (Wixela Inhub) 100-50 mcg/dose Disk with Device, Inhale 1 puff into the lungs every 12 hours., Disp: , Rfl: ??? famotidine (Pepcid) 40 mg Tablet, Take 40 mg by mouth daily., Disp: , Rfl: ??? linaGLIPtin (Tradjenta) 5 mg Tablet, Take 5 mg by mouth daily., Disp: , Rfl: ??? insulin glulisine U-100 (Apidra SoloStar U-100 Insulin) 100 unit/mL Insulin Pen, Inject 2-10 Units subcutaneously 2 times daily (before meals). (Patient taking differently: Inject 2-10 Units subcutaneously 2 times daily (before meals). PRN), Disp: 30 mL, Rfl: 1 ??? glimepiride (AMARYL) 1 mg Tablet, Take [...] 2 OXYGEN SYSTEM MISC), [facility]Non- Drug; Combo Route) route as needed., Disp: , Rfl: ??? atorvastatin (LIPITOR) 40 [...] Morphine Sulfate Nausea And Vomiting Physical exam: Patient Vitals for the past 24 hrs: Pulse BP 10/31/20 1450 85 95/53 10/31/20 1451 87 106/59 No distress noted during this phone encounter No dependent edema reported A/P; The patient remains in stage III CKD with stable renal function, her blood pressure is well controlled Risk factors for worsening kidney function were discussed Recommend follow-up in a year with labs documented in this encounter Plan of Treatment Upcoming Encounters Date Type Specialty Care Team Description 04/04/2022 Office Visit Dermatology Celena Salazar MD [facility] [address] [place], [place] [address] (Wo rk) Scheduled Orders Name Type Priority Associated Diagnoses Order S chedule Basic Metabolic Panel Lab STAT Stage 3 Chronic Kid maren Expected: 10/31/2021, (non-fasting) Disease, Unspecified s: 10/31/2022 Whether Stage 3a Or 3b Ckd CBC (with Diff) Lab STAT Stage 3 Chronic Kidney Ex pected: 10/31/2021, Disease, Unspecified Expires : 10/31/2022 Whether Stage 3a Or 3b Ckd PTH Lab STAT Stage 3 Chronic Kidney Expec elmer: 10/31/2021, Disease, Unspecified Expires : 10/31/2022 Whether Stage 3a Or 3b Ckd Albumin Level Lab STAT Stage 3 Chronic Kidney Expe cted: 10/31/2021, Disease, Unspecified Expires : 10/31/2022 Whether Stage 3a Or 3b Ckd Phosphorus Lab STAT Stage 3 Chronic Kidney Expec elmer: 10/31/2021, Disease, Unspecified Expires : 10/31/2022 Whether Stage 3a Or 3b Ckd documented as of this encounter Visit Diagnoses Diagnosis Stage 3 chronic kidney disease, unspecif ied whether stage 3a or 3b CKD documented in this encounter Care Teams Mangle Feeder Relationship Specialty Start Date End Date Amanda Barnett DO PCP - General Family Medicine 06/19/[address] [place] [address] documented as of this encounter
--- OUTSIDE RECORDS SUMMARY | 2022-02-02 00:30 | XMS_ITS | Encounter Summary ---
:1950 Author Organization [facility] [place] [address] Care Team Providers Name Role Phone Amanda Barnett DO Primary Care Provider Reason for Visit Reason Onset Date Comments Pump/sensor 04/27/2019 Encounter Details Date Type Department Care Team Description 04/27/2019 Telephone Endocrinology at [facility] C Princess Fay Pump/[place] [address] Social History Tobacco Use Types Packs/Day Years Used Date Former Smoker Cigarettes Quit: 04/04/19 99 Smokeless Tobacco: Never Used Alcohol Use Standard Drinks/Week Comments No 0 (1 standard drink = 0.6 oz pure alcoho l) Sex Assigned at Date Recorded Not on file documented as of this encounter Miscellaneous Notes Telephone Encounter - Princess Fay - 04/27/2019 1:10 PM EST Documentation request received from [employer]. 2 office notes routed Confirmed 04/27 documented in this encounter Plan of Treatment Upcoming Encounters Date Type Specialty Care Team Description 04/04/2022 Office Visit Dermatology Celena Salazar MD [facility] ER DR [address] LE[address]MAT [place], [place] [address] (Wo rk) documented as of this encounter Visit Diagnoses Not on filedocumented in this encounter Care Teams Sash Installer Relationship Specialty Start Date End Date Amanda Barnett, DO PCP - General Family Medicine 06/19/17 [address] [place] [address] documented as of this encounter
--- OUTSIDE RECORDS SUMMARY | 2022-02-02 00:30 | XMS_ITS | Encounter Summary ---
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 hydroCHLOROthiazide Take 12.5 mg by 0 (MICROZIDE) 12.5 mg mouth daily. Capsule insulin degludec (Insulin Inject 34 Units 0 Tresiba FlexTouch U-100) subcutaneously 100 unit/mL (3 mL) Insulin nightly. Pen acetaminophen (TYLENOL) Take 1,000 mg by 0 500 mg Tablet mouth every 6 hours as needed for Pain. tiotropium (Spiriva) 18 Daily 0 06/05/2017 mcg Capsule, w/Inhalation Device lisinopril Take 15 mg by mouth 0 08/24/2014 (PRINIVIL;ZESTRIL) 30 mg daily. Tablet PROAIR HFA 90 Inhale 2 puffs into 0 02/27/2013 mcg/actuation inhaler the lungs as needed. Reported on 09/25/2016 OXYGEN-AIR DELIVERY by [facility].(Non-Drug; 0 SYSTEMS (WALKABOUT 2 Combo Route) route OXYGEN SYSTEM [facility]) as needed. atorvastatin (LIPITOR) 40 Take 40 mg by mouth 0 mg tablet daily. cyanocobalamin, vitamin Take 1,000 mcg by 0 B-12, 250 mcg tablet mouth daily. aspirin 81 mg EC tablet Take 81 mg by mouth 0 daily. pramoxine (PROCTOFOAM) 1 % 0 0 foam alogliptin 12.5 mg Tablet Take 1 tablet by 90 tablet 3 04/2207/27/2019 mouth daily. fluorouracil (EFUDEX) 5 % Apply a thin layer 40 g 0 10/31/2020 CreamIndications: AK to affected areas on (actinic keratosis) the right cheek and nose twice daily (morning and night) as tolerated for 3 weeks ranitidine (ZANTAC) 150 mg Take 150 mg by mouth 0 07/27/2019 Capsule 2 times daily. insulin glulisine (APIDRA Inject 4-10 Units 15 mL 3 06/04/2019 SOLOSTAR) 100 unit/mL subcutaneously 2 Insulin Pen times daily (before meals). Calcium Carbonate-Vitamin Take by mouth daily. 0 10/31/2020 D3 (CALCIUM 500 + D) 500 mg(1,250mg) -400 unit Chew fluticasone-salmeterol Inhale 1 puff into 0 07/27/2019 (ADVAIR) 100-50 mcg/dose the lungs every 12 diskus inhaler hours. documented as of this encounter Plan of Treatment Upcoming Encounters Date Type Specialty Care Team Description 04/04/2022 Office Visit Dermatology Celena Salazar MD [facility] ER DR [address] [place], [place] [address] (Wo rk) Scheduled Orders Name Type Priority Associated Diagnoses Order S chedule CBC (with Diff) Lab STAT CKD (chronic kidney 1 Occ urrences starting disease) stage 3, GFR 30-59 05/19/2019 until 05/19/2019 ml/min documented as of this encounter Procedures Procedure Name Priority Date/Time Associated Comments Diagnosis HC PARATHYROID STAT 05/19/2019 10:59 CKD (chronic kidney Re sults for this HORMONE(PTH INTACT AM EST disease) stage 3, proc edure are in GFR 30-59 ml/min the results section. HEMOGRAM STAT 05/19/2019 10:59 Squamous cell Results fo r this AM EST carcinoma of left procedure are in lung the results section. DIFFERENTIAL, STAT 05/19/2019 10:59 Squamous cell Results f or this AUTOMATED AM EST carcinoma of left procedure are in lung the results section. HC CBC,PLT & AUTO DIFF STAT 05/19/2019 10:59 Squamous cell AM EST carcinoma of left lung HC PHOSPHORUS, SERUM STAT 05/19/2019 10:59 CKD (chronic kid maren Results for this AM EST disease) stage 3, procedure are in GFR 30-59 ml/min the results section. HC LACTIC STAT 05/19/2019 10:59 Squamous cell Results fo r this DEHYDROGENASE AM EST carcinoma of left procedure are in lung the results section. HC VENIPUNCTURE STAT 05/19/2019 10:59 Squamous cell Results for this AM EST carcinoma of left procedure are in lung the results section. documented in this encounter Results (ABNORMAL) Differential, Automated (05/19/2019 10:59 AM EST) [facility] gist Method Time Signature Neutrophils % 76.1 % [facility] LABORATORY Neutr Abs (ANC) 6.78 (H) 1.70 - [facility] 6.10 [facility] x10(3)/[facility] LABORATORY Lymphocytes % 14.1 % [facility] Lymphocytes Abs 1.3 0.9 - 3.2 [facility] x10(3)/[facility] LABORATORY Monocytes % 7.6 % [facility] LAB[facility]ORY Monocyte Abs 0.7 0.3 - 0.9 [facility] x10(3)/[facility] LABORATORY Eosinophils % 0.9 % [facility] LABOR[facility]ORY Eosinophils Abs 0.1 0.0 - 0.4 [facility] x10(3)/[facility] LABORATORY Basophils % 0.7 % [facility]OR[facility]ORY Basophils Abs 0.1 0.0 - 0.1 [facility] x10(3)/[facility] LABORATORY Immature Gran % 0.60 % [facility] Comment: Immature granulocytes(IG's)percentage an d absolute count will include metamyelocytes, myelocytes, and promyelo cytes. Blood smears from CBCs yielding IG's will be scanned manually for concor dance. If this scan disagrees with the automated IG or if promyelocytes are not ed, a manual differential will be performed. Shanae Gran Abs 0.05 (H) 0.00 - 0.04 x10(3)/[facility] LABORATORY Specimen Anatomical Collection Method Collection Time Receive d Time (Source) Location / / Volume Laterality Blood specimen 05/19/2019 10:59 0 (specimen) AM EST 11:17 AM EST Resulting Agency Comment Spec In Lab Delbert Greenberg MD HEMATOLOGY ORDERABLES Performing Organization Address City/State/ZIP Code Phon e Number [place] [phone] (ABNORMAL) Hemogram (05/19/2019 10:59 AM EST) Analysis Performed At Patho logist Time Signature WBC 8.9 4.0 - 9.5 [facility] x10(3)/[facility] LABORATORY RBC 3.94 (L) 4.00 - [facility] 5.21 [facility] x10(6)/[facility] LABORATORY Hemoglobin 11.5 (L) 11.7 - [facility] 15.5 gm/dL [facility] LABORATORY Hematocrit 37.4 35.7 - [facility] 45.8 % [facility] LABORATORY MCV 94.9 (H) 82.6 - [facility] 94.4 [facility] LABORATORY MCH 29.2 27.1 - [facility] 32.0 pg [facility] LABORATORY MCHC 30.7 (L) 31.7 - [facility] 35.0 gm/dL [facility] LABORATORY Platelets 226 145 - 357 [facility] x10(3)/[facility] LABORATORY RDWSD 50.3 (H) 37.0 - [facility] 46.0 [facility] LABORATORY RDWCV 14.4 (H) 11.5 - [facility] 14.1 % [facility] LABORATORY MPV 11.0 7.6 - 12.9 [facility] LABORATORY nRBC % Auto 0.0 % [facility] LABORATORY nRBC Abs Auto 0.000 0.000 - [facility] 0.000 [facility] x10(3)/[facility] LABORATORY Specimen Anatomical Collection Method Collection Time Receive d Time (Source) Location / / Volume Laterality Blood specimen 05/19/2019 10:59 0 (specimen) AM EST 11:17 AM EST Resulting Agency Comment Spec In Lab Delbert Greenberg MD HEMATOLOGY ORDERABLES Performing Organization Address City/State/ZIP Code Phon e Number [address] (ABNORMAL) PTH (05/19/2019 10:59 AM EST) P athologist Signature PTH 79 (H) 15 - 65 [facility] pg/mL [facility] LABORATORY Specimen Anatomical Collection Method Collection Time Receive d Time (Source) Location / / Volume Laterality Blood specimen 05/19/2019 10:59 0 (specimen) AM EST 11:17 AM EST Resulting Agency Comment Spec In Lab Denilson Rendon MD CHEMISTRY ORDERABLES Performing Organization Address City/State/ZIP Code Phon e Number [address] Phosphorus (05/19/2019 10:59 AM EST) P athologist Signature Phosphorus 3.8 2.5 - 4.5 [facility] mg/dL [facility] LABORATORY Specimen Anatomical Collection Method Collection Time Receive d Time (Source) Location / / Volume Laterality Blood specimen 05/19/2019 10:59 0 (specimen) AM EST 11:17 AM EST Resulting Agency Comment Spec In Lab Denilson Rendon MD CHEMISTRY ORDERABLES Performing Organization Address City/[facility]/ZIP Code Phon e Number [address] Lactate Dehydrogenase (05/19/2019 10:59 AM EST) P athologist Signature LDH 181 110 - 220 [facility] unit/L [facility] LABORATORY Specimen Anatomical Collection Method Collection Time Receive d Time (Source) Location / / Volume Laterality Blood specimen 05/19/2019 10:59 0 (specimen) AM EST 11:17 AM EST Resulting Agency Comment Spec In Lab Delbert Greenberg MD CHEMISTRY ORDERABLES Performing Organization Address City/State/ZIP [place] [address] (ABNORMAL) Comprehensive metabolic panel (non-fasting) (05/19/2019 10:59 AM EST) athologist Signature Glucose Lvl 132 65 - 199 [facility] mg/dL [facility] LABOR[facility]ORY Comment: Diabetes: >=200 mg/dL plus symp toms BUN 27 (H) 8 - 18 mg/dL [facility] LABORATORY Creatinine 1.36 (H) 0.70 - 1.20 mg/dL [facility] LABORATORY Sodium 143 135 - 145 mmol/L [facility] LABORATORY Potassium 4.6 3.5 - 5.0 mmol/L [facility] LABOR[facility]ORY Comment: Please note: ??Patients with WBC >100,00 0 may have falsely elevated Potassium levels. ??For accurate Potassium quantif ication in these patients send serum separator tube (gold top) for subsequent determinations. ??Contact the Clinical Chemistry Laboratory if there are any qu estions. Chloride 105 98 - 107 mmol/L [facility] LABOR[facility]ORY CO2 26 22 - 31 mmol/L [facility] LABOR[facility] Anion Gap 12 5 - 15 mmol/L [facility] LABOR[facility]ORY Calcium 9.2 8.5 - 10.5 mg/dL [facility] LABOR[facility]ORY Total Protein 6.9 6.1 - 8.0 gm/dL [facility] LABORATORY Albumin 3.8 3.2 - 5.2 gm/dL [facility] LABORATORY AST 12 0 - 30 unit/L [facility] LABOR[facility]ORY ALT 11 0 - 30 unit/L [facility] LAB[facility]ORY Alk Phos 102 35 - 105 unit/L [facility] LABORATORY Total Bilirubin 0.2 0.2 - 1.3 mg/dL [facility] LABORATORY Estimated GFR 39 (L) >=60 mL/min/1.73 m?? [facility] LABOR[facility]ORY Comment: The eGFR was calculated using the CKD-EP I equation. As with all creatinine based estimates of kidney function, eGFR values calculated with the CKD-EPI equation are not accurate in patients wi th acute kidney failure, extremes of body mass or the acutely ill. [email or web address]USCOGE[employer] eGFR 46 (L) >=60 mL/min/1.73 m?? [facility] LABOR[facility]ORY Comment: The eGFR was calculated using the CKD-EP I equation. As with all creatinine based estimates of kidney function, eGFR values calculated with the CKD-EPI equation are not accurate in patients wi th acute kidney failure, extremes of body mass or the acutely ill. [email or web address] Specimen Anatomical Collection Method Collection Time Receive d Time (Source) Location / / Volume Laterality Blood specimen 05/19/2019 10:59 0 (specimen) AM EST 11:17 AM EST Resulting Agency Comment Spec In Lab Delbert Greenberg MD CHEMISTRY ORDERABLES Performing Organization Address City/State/[place] [address] documented in this encounter Visit Diagnoses Diagnosis Squamous cell carcinoma of left lung CKD (chronic kidney disease) stage 3, GF R 30-59 ml/min Chronic kidney disease, Stage III (moder ate) documented in this encounter Care Teams Assessment Consultant Relationship Specialty Start Date End Date Amanda Barnett DO PCP - General Family Medicine 06/19/[address] [place] [address] documented as of this encounter
--- OUTSIDE RECORDS SUMMARY | 2022-02-02 00:30 | XMS_ITS | Encounter Summary ---
:1950 Author Organization [facility] [place] [address] Care Team Providers Name Role Phone AnibalAmanda Alba LAURENT Primary Care Provider Encounter Details Date Type Department Care Team Description 04/30/2019 Telephone Endocrinology at [facility] [place] [phone] Social History Tobacco Use Types Packs/Day Years Used Date Former Smoker Cigarettes Quit: 04/04/19 99 Smokeless Tobacco: Never Used Alcohol Use Standard Drinks/Week Comments No 0 (1 standard drink = 0.6 oz pure alcoho l) Sex Assigned at Date Recorded Not on file documented as of this encounter Miscellaneous Notes Telephone Encounter - Arun Garcia RN - 05/04/2019 12:45 PM EST Left voicemail regarding the change in medication and to call our office and get scheduled for follow up. Telephone Encounter - Gage Gupta MD - 05/02/2019 9:52 PM EST Arun Alogliptin would be fine instead of Tradjenta, it is in the same class. I prescribed a dose of 12.5mg daily, please let her know. She should see me in followup in May-June, thanks Telephone Encounter - Arun Garcia RN - 04/30/2019 3:15 PM EST Pt left voicemail that Bess is not covered by her insurance without a member formulary exception form. She says they prefer Januvia (she reports she can't take related to kidney function), Alogliptin, or Onglyza. documented in this encounter Plan of Treatment Upcoming Encounters Date Type Specialty Care Team Description 04/04/2022 Office Visit Dermatology Celena Salazar MD [facility] ER [address] [place], [place] [address] (Wo rk) documented as of this encounter Visit Diagnoses Not on filedocumented in this encounter Care Teams Newspaper Distributor Supervisor Relationship Specialty Start Date End Date Amanda Barnett DO PCP - General Family Medicine 06/19/[address] [place] [address] documented as of this encounter
--- OUTSIDE RECORDS SUMMARY | 2022-02-02 00:30 | XMS_ITS | Encounter Summary ---
:1950 Author Organization [facility] [place] [address] Care Team Providers Name Role Phone Amanda Barnett DO Primary Care Provider Encounter Details Date Type Department Care Team Description 05/19/2018 Office Visit Nephrology Hypertension Denilson Rendon CKD (chronic kidney at [facility] [place] disease) stage 3, GFR [facility] 30-59 ml/ min [facility] [place] [address] [place] [id number] NEPHROLOGY DEPT. [phone] [place] [id number] Social History Tobacco Use Types Packs/Day Years Used Date Former Smoker Cigarettes Quit: 04/04/19 99 Smokeless Tobacco: Never Used Alcohol Use Standard Drinks/Week Comments No 0 (1 standard drink = 0.6 oz pure alcoho l) Sex Assigned at Date Recorded Not on file documented as of this encounter Last Filed Vital Signs Vital Sign Reading Time Taken Comments Blood Pressure 110/56 05/19/2018 1:07 PM EST Pulse 78 05/19/2018 1:07 PM EST Temperature - - Respiratory Rate - - Oxygen Saturation - - Inhaled Oxygen Concentration - - Weight 120.7 kg (266 lb) 05/19/2018 1:07 PM EST Height 167.6 cm (5' 6) 05/19/2018 1:07 PM EST Body Mass Index 42.93 05/19/2018 1:07 PM EST documented in this encounter Progress Notes Denilson Rendon MD - 05/19/2018 1:00 PM EST 67 y/o woman for follow up of CKD The patient has been feeling well, she has lost some weight and is working to reduce processed foodsand junk foods No urine changes noted, some leg swelling and dermatitis improved with a cream she uses, no other complaint offered, the remaining review of systems was negative Medications: Current Outpatient Medications: ??? glimepiride (AMARYL) 1 mg Tablet, Take 1 mg by mouth every morning (before breakfast)., Disp: , Rfl: ??? hydroCHLOROthiazide (MICROZIDE) 12.5 mg Capsule, Take 12.5 mg by mouth daily., Disp: , Rfl: ??? insulin degludec (TRESIBA FLEXTOUCH U-100) 100 unit/mL (3 mL) Insulin Pen, Inject 30 Units subcutaneously nightly., Disp: , Rfl: ??? acetaminophen (TYLENOL) 500 mg Tablet, Take 1,000 mg by mouth every 6 hours as needed for Pain.,Disp: , Rfl: ??? linagliptin (TRADJENTA) 5 mg Tablet, Daily, Disp: , Rfl: ??? tiotropium (SPIRIVA WITH HANDIHALER) 18 mcg Capsule, w/Inhalation Device, Daily, Disp: , Rfl: ??? cimetidine (TAGAMET) 400 mg Tablet, Take 1 tablet by mouth 2 times daily., Disp: 60 tablet, Rfl:3 ??? insulin glulisine (APIDRA SOLOSTAR) 100 unit/mL Insulin Pen, Inject 4-10 Units subcutaneously 2 times daily (before meals)., Disp: 15 mL, Rfl: 3 ??? fluorouracil (EFUDEX) 5 % Cream, apply to affected areas mentioned above BID for 2-3 weeks., Disp: 40 g, Rfl: 0 ??? lisinopril (PRINIVIL;ZESTRIL) 30 mg Tablet, Take 15 mg by mouth daily., Disp: , Rfl: ??? PROAIR HFA 90 mcg/actuation inhaler, Inhale 2 puffs into the lungs as needed. Reported on 09/25/2016, Disp: , Rfl: ??? OXYGEN-AIR DELIVERY SYSTEMS (WALKABOUT 2 OXYGEN SYSTEM MISC), by [facility].(Non- Drug; Combo Route) route., Disp: , Rfl: ??? Calcium Carbonate-Vitamin D3 (CALCIUM 500 + D) 500 mg(1,250mg) -400 unit Chew, Take by mouth daily., Disp: , Rfl: ??? atorvastatin (LIPITOR) 40 mg tablet, Take 40 mg by mouth daily., Disp: , Rfl: ??? fluticasone-salmeterol (ADVAIR) 100-50 mcg/dose diskus inhaler, Inhale 1 puff into the lungs every 12 hours., Disp: , Rfl: ??? cyanocobalamin, vitamin B-12, 250 mcg tablet, Take 500 mcg by mouth daily., Disp: , Rfl: ??? aspirin 81 mg EC tablet, Take 81 mg by mouth daily., Disp: , Rfl: ??? pramoxine (PROCTOFOAM) 1 % foam, , Disp: , Rfl: Allergies Allergen Reactions ??? Byetta [Exenatide] STOMACH CRAMPS ??? Metformin Diarrhea ??? Morphine Sulfate Nausea And Vomiting Physical exam: Most Recent Vitals: 05/19/18 1307 BP: 110/56 Pulse: 78 PainSc: 0 - No pain overweight Normal color Using a walker Heart regular rhythm Limbs trace edema R>L Venous stasis dermatitis Diabetic shoes U/A: 1.010 pH 5 prot trace blood neg Urine sediment: squamous epithelial cells and WBC Labs: Results for PENNIE RODRIGUEZ ( ) as of 05/19/2018 17:12 Ref. Range 05/19/2018 12:20 05/19/2018 13:00 WBC Latest Ref Range: 4.0 - 9.5 x10(3)/mcL 8.7 RBC Latest Ref Range: 4.00 - 5.21 x10(6)/mcL 3.98 (L) Hemoglobin Latest Ref Range: 11.7 - 15.5 gm/dL 11.5 (L) Hematocrit Latest Ref Range: 35.7 - 45.8 % 36.9 MCV Latest Ref Range: 82.6 - 94.4 fL 92.7 MCH Latest Ref Range: 27.1 - 32.0 pg 28.9 MCHC Latest Ref Range: 31.7 - 35.0 gm/dL 31.2 (L) RDWSD Latest Ref Range: 37.0 - 46.0 fL 47.7 (H) RDWCV Latest Ref Range: 11.5 - 14.1 % 13.7 Platelets Latest Ref Range: 145 - 357 x10(3)/mcL 230 MPV Latest Ref Range: 7.6 - 12.9 fL 10.4 nRBC % Auto Latest Units: % 0.0 nRBC Abs Auto Latest Ref Range: 0.000 - 0.000 x10(3)/mcL 0.000 Neutr Abs (ANC) Latest Ref Range: 1.70 - 6.10 x10(3)/mcL 5.85 Neutrophils % Latest Units: % 67.3 Immature Gran % Latest Units: % 0.70 Lymphocytes % Latest Units: % 22.0 Monocytes % Latest Units: % 7.6 Eosinophils % Latest Units: % 1.4 Basophils % Latest Units: % 1.0 Shanae Gran Abs Latest Ref Range: 0.00 - 0.04 x10(3)/mcL 0.06 (H) Lymphocytes Abs Latest Ref Range: 0.9 - 3.2 x10(3)/mcL 1.9 Monocyte Abs Latest Ref Range: 0.3 - 0.9 x10(3)/mcL 0.7 Eosinophils Abs Latest Ref Range: 0.0 - 0.4 x10(3)/mcL 0.1 Basophils Abs Latest Ref Range: 0.0 - 0.1 x10(3)/mcL 0.1 Sodium Latest Ref Range: 135 - 145 mmol/L 143 Potassium Latest Ref Range: 3.5 - 5.0 mmol/L 4.9 Chloride Latest Ref Range: 98 - 107 mmol/L 105 CO2 Latest Ref Range: 22 - 31 mmol/L 25 Anion Gap Latest Ref Range: 5 - 15 mmol/L 13 BUN Latest Ref Range: 8 - 18 mg/dL 44 (H) Creatinine Latest Ref Range: 0.70 - 1.20 mg/dL 1.35 (H) eGFR Latest Ref Range: >=60 mL/min/1.73 m?? 40 (L) eGFR Latest Ref Range: >=60 mL/min/1.73 m?? 46 (L) Glucose Lvl Latest Ref Range: 65 - 199 mg/dL 90 Calcium Latest Ref Range: 8.5 - 10.5 mg/dL 9.2 Hemoglobin A1C Latest Ref Range: 4.3 - 5.6 % 7.3 (H) Est Avg Gluc Latest Units: mg/dL 163 Phosphorus Latest Ref Range: 2.5 - 4.5 mg/dL 3.5 Albumin Latest Ref Range: 3.2 - 5.2 gm/dL 4.0 25-OH Vit D Total Latest Ref Range: 30 - 100 ng/mL 38 PTH Latest Ref Range: 15 - 65 pg/mL 35 Alb/Cr Ratio, Random Latest Ref Range: 0 - 29 mcg/mg Cr 34 (H) U Albumin Conc, Random Latest Units: mg/L 33.6 U Creatinine Latest Units: mg/dL 98 A/P: Stage 3 CKD with stable or improving renal function and an unremarkable urine sediment A spot urine was borderline positive for microalbuminuria, recommend to continue Lisinopril The patient has no anemia or secondary hyperparathyroidism Risk factors for worsening renal function were discussed The patient was encouraged to persist with her efforts at improving her health RTC in a year documented in this encounter Plan of Treatment Upcoming Encounters Date Type Specialty Care Team Description 04/04/2022 Office Visit Dermatology Celena Salazar MD [facility] [address] THERESE LEOS[place], [place] [address] (Wo rk) Scheduled Orders Name Type Priority Associated Diagnoses Order S chedule CBC (with Diff) Lab STAT CKD (chronic kidney disea se) Expected: 04/18/2019 stage 3, GFR 30-59 ml/min (A pproximate), Expires: 03/19/2020 documented as of this encounter Procedures Procedure Name Priority Date/Time Associated Diagnosis Comme nts U ALBUMIN/CRE RATIO Routine 05/19/2018 1:00 PM CKD (chronic ki dney Results for this EST disease) stage 3, procedure are in GFR 30-59 ml/min the results section. documented in this encounter Results Phosphorus (05/19/2019 10:59 AM EST) P athologist Signature Phosphorus 3.8 2.5 - 4.5 PIERRE [place] mg/dL [facility] Specimen Anatomical Collection Method Collection Time Receive d Time (Source) Location / / Volume Laterality Blood specimen 05/19/2019 10:59 0 (specimen) AM EST 11:17 AM EST Resulting Agency Comment Spec In Lab Denilson Rendon MD CHEMISTRY ORDERABLES Performing Organization Address City/[facility]/ZIP Code Phon e Number [address] (ABNORMAL) PTH (05/19/2019 10:59 AM EST) P athologist Signature PTH 79 (H) 15 - 65 [facility] pg/mL [facility] Specimen Anatomical Collection Method Collection Time Receive d Time (Source) Location / / Volume Laterality Blood specimen 05/19/2019 10:59 0 (specimen) AM EST 11:17 AM EST Resulting Agency Comment Spec In Lab Denilson Rendon MD CHEMISTRY ORDERABLES Performing Organization Address City/[facility] Phon e Number [address] (ABNORMAL) U Albumin/Cre Ratio (05/19/2018 1:00 PM EST) athologist Signature Alb/Cr Ratio, 34 (H) 0 - 29 [facility] Random mcg/mg Cr [facility] Comment: Reference Ranges: <30 mcg/mg: Normal 30-300 mcg/mg: Moderately increased albu minuria.* >300 mcg/mg: Severely increased albuminu jovany. * ACEI or ARB recommended if diabetic; s uggested if BP>130/80 without diabetes ACEI or ARB strongly recommended if di abetic; recommended if BP>130/80 without diabetes Two of three specimens collected within a 3 to 6 month period should be abnormal before considering a patient to have albuminuria. Transient causes: exercise, fever, infection, CHF, marked hyperglycemia or hypertension. Persistent albuminuria indicates CKD and is an independent risk factor for ASCVD. ADA Standards of Medical Care in Diabete s-2016; KDIGO: Kidney International Supplements (2012) 2, 357? 362 U Albumin Conc, Random 33.6 mg/L [facility] U Creatinine 98 mg/dL [facility] Specimen Anatomical Collection Method Collection Time Receive d Time (Source) Location / / Volume Laterality Urine specimen 05/19/2018 1:00 PM 019 2:22 (specimen) EST PM EST Resulting Agency Comment Spec In Lab Denilson Rendon MD URINE ORDERABLES Performing Organization Address City/[facility]/[place] [address] Vitamin D, 25-Hydroxy (05/19/2018 12:20 PM EST) P athologist Signature 25-OH Vit D 38 30 - 100 PIERRE [place] Total ng/mL [facility] Comment: Deficient <10 ng/mL Insufficient 10 to 29 ng/mL Sufficient 30 to 100 ng/mL Potential Intoxication >100 ng/mL According to the [place] National Osteoporosi s Foundation, Vitamin D concentrations >30 ng/mL are sufficient to protect bone health. ??The National Kidney Foundation has similarly stated that pat ients with Vitamin D concentrations <30ng/mL should be considered to be insu fficient or deficient. http://[employer]/nkf-guidelines http://[employer]/nejm-VitD The [employer] Vitamin D Immunoassay detec ts both 25-OH Vitamin D2 and 25-OH Vitamin D3, but only a total Vitamin D c oncentration is reported. Specimen Anatomical Collection Method Collection Time Receive d Time (Source) Location / / Volume Laterality Blood specimen 05/19/2018 12:20 9 1:34 (specimen) PM EST PM EST Resulting Agency Comment Spec In Lab Denilson Rendon MD CHEMISTRY ORDERABLES Performing Organization Address City/[facility]/[place] [address] Phosphorus (05/19/2018 12:20 PM EST) athologist Signature Phosphorus 3.5 2.5 - 4.5 [place]ERRE [place] mg/dL [facility] Specimen Anatomical Collection Method Collection Time Receive d Time (Source) Location / / Volume Laterality Blood specimen 05/19/2018 12:20 9 (specimen) PM EST 12:39 PM EST Resulting Agency Comment Spec In Lab Denilson Rendon MD CHEMISTRY ORDERABLES Performing Organization Address City/State/[place] [address] Albumin Level (05/19/2018 12:20 PM EST) athologist Signature Albumin 4.0 3.2 - 5.2 [facility] [place] gm/dL [facility] Specimen Anatomical Collection Method Collection Time Receive d Time (Source) Location / / Volume Laterality Blood specimen 05/19/2018 12:20 9 (specimen) PM EST 12:39 PM EST Resulting Agency Comment Spec In Lab Denilson Rendon MD CHEMISTRY ORDERABLES Performing Organization Address City/[facility]/ZIP Code Phon e Number [address] PTH (05/19/2018 12:20 PM EST) athologist Signature PTH 35 15 - 65 [facility] pg/mL [facility] Specimen Anatomical Collection Method Collection Time Receive d Time (Source) Location / / Volume Laterality Blood specimen 05/19/2018 12:20 9 (specimen) PM EST 12:45 PM EST Resulting Agency Comment Spec In Lab Denilson Rendon MD CHEMISTRY ORDERABLES Performing Organization Address City/[facility]/ZIP [facility] [place] [address] (ABNORMAL) Basic Metabolic Panel (non-fasting) (05/19/2018 12:20 PM EST) athologist [facility] Glucose Lvl 90 65 - 199 [facility] mg/dL [facility] Comment: Diabetes: >=200 mg/dL plus symp toms BUN 44 (H) 8 - 18 mg/dL [facility] Creatinine 1.35 (H) 0.70 - 1.20 mg/dL [facility] Sodium 143 135 - 145 mmol/L [facility] Potassium 4.9 3.5 - 5.0 mmol/L [facility] Comment: Please note: ??Patients with WBC >100,00 0 may have falsely elevated Potassium levels. ??For accurate Potassium quantif ication in these patients send serum separator tube (gold top) for subsequent determinations. ??Contact the Clinical Chemistry Laboratory if there are any qu estions. Chloride 105 98 - 107 mmol/L [facility] CO2 25 22 - 31 mmol/L [facility] Anion Gap 13 5 - 15 mmol/L [facility] Calcium 9.2 8.5 - 10.5 mg/dL [facility] Estimated GFR 40 (L) >=60 mL/min/1.73 m?? [facility] Comment: The eGFR was calculated using the CKD-EP I equation. As with all creatinine based estimates of kidney function, eGFR values calculated with the CKD-EPI equation are not accurate in patients wi th acute kidney failure, extremes of body mass or the acutely ill. http://[employer]/[facility]ORD[facility]f eGFR 46 (L) >=60 mL/min/1.73 m?? [facility] Comment: The eGFR was calculated using the CKD-EP I equation. As with all creatinine based estimates of kidney function, eGFR values calculated with the CKD-EPI equation are not accurate in patients wi th acute kidney failure, extremes of body mass or the acutely ill. http://[employer]/[facility]ORD[facility]f Specimen Anatomical Collection Method Collection Time Receive d Time (Source) Location / / Volume Laterality Blood specimen 05/19/2018 12:20 9 (specimen) PM EST 12:39 PM EST Resulting Agency Comment Spec In Lab Denilson Rendon MD CHEMISTRY ORDERABLES Performing Organization Address City/State/[place] [address] documented in this encounter Visit Diagnoses Diagnosis CKD (chronic kidney disease) stage 3, GF R 30-59 ml/min Chronic kidney disease, Stage III (moder ate) documented in this encounter Care Teams Power Press Tender Relationship Specialty Start Date End Date Amanda Barnett DO PCP - General Family Medicine 06/19/[address] [place] [address] documented as of this encounter
--- OUTSIDE RECORDS SUMMARY | 2022-02-02 00:30 | XMS_ITS | Encounter Summary ---
:1950 Author Organization [facility] Address [place] [id number] Care Team Providers Name Role Phone Amanda Barnett DO Primary Care Provider Reason for Referral Diagnostic Test (Routine) - Closed Specialty Diagnoses / Procedures Referred By Contact Refer red To Contact Radiology Diagnoses Squamous cell carcinoma of lung, unspecified laterality Delbert Greenberg MD [facility] Rad Ct Scan Procedures CT Chest wo Contrast (Generic) [facility] DR [facility] [place] [address] [place] [address] Referral ID Status Reason Start Date Expiration Date Visits V isits Requested Authorized [id number] Closed Specialty 09/28/2016 09/28/2017 1 1 Service Requested Reason for Visit Diagnostic Test (Routine) - Closed Specialty Diagnoses / Procedures Referred By Contact Refer red To Contact Radiology Diagnoses Squamous cell carcinoma of lung, unspecified laterality Delbert Greenberg MD [facility] Rad Ct Scan Procedures CT Chest wo Contrast (Generic) [facility] ONCOLOGY [place], [place] [id number] [place] [phone] Referral ID Status Reason Start Date Expiration Date Visits V isits Requested Authorized [id number] Closed Specialty 09/28/2016 09/28/2017 1 1 Service Requested Encounter Details Date Type Department Care Team Description 09/24/[address] [facility] [place] [facility], Squamous cell [facility] Delbert Ramírez MD carcinoma of lung, [facility] unspecified [place], [place] [address] [place] [address] MEDICAL ONCOLOGY [phone] [place], [place] [address] Social History Tobacco Use Types Packs/Day Years Used Date Former Smoker Cigarettes Quit: 04/04/19 99 Smokeless Tobacco: Never Used Alcohol Use Standard Drinks/Week Comments No 0 (1 standard drink = 0.6 oz pure alcoho l) Sex Assigned at Date Recorded Not on file documented as of this encounter Medications at Time of Discharge Medication Sig Dispensed Refills Start Date End Date tiotropium (Spiriva) 18 Daily 0 06/05/2017 mcg Capsule, w/Inhalation Device lisinopril Take 15 mg by mouth 0 08/24/2014 (PRINIVIL;ZESTRIL) 30 mg daily. Tablet PROAIR HFA 90 Inhale 2 puffs into 0 02/27/2013 mcg/actuation inhaler the lungs as needed. Reported on 09/25/2016 OXYGEN-AIR DELIVERY by [facility].(Non-Drug; 0 SYSTEMS (WALKABOUT 2 Combo Route) route OXYGEN SYSTEM [facility]) as needed. atorvastatin (LIPITOR) 40 Take 40 mg by mouth 0 mg tablet daily. cyanocobalamin, vitamin Take 1,000 mcg by 0 B-12, 250 mcg tablet mouth daily. aspirin 81 mg EC tablet Take 81 mg by mouth 0 daily. pramoxine (PROCTOFOAM) 1 0 03/07/2010 % foam linagliptin (TRADJENTA) 5 Daily 0 04/09/2017 01/27/2019 mg Tablet cimetidine (TAGAMET) 400 Take 1 tablet by 60 tablet 3 09/0908/12/2018 mg TabletIndications: mouth 2 times daily. Gastroesophageal reflux disease with esophagitis insulin glulisine (APIDRA Inject 4-10 Units 15 mL 3 06/04/2019 SOLOSTAR) 100 unit/mL subcutaneously 2 Insulin Pen times daily (before meals). insulin glargine (LANTUS Inject 42 Units 45 mL 3 201605/19/2018 SOLOSTAR) 100 unit/mL pen subcutaneously nightly. glimepiride (AMARYL) 4 mg Take 1 tablet by 180 tablet 3 11/2005/19/2018 Tablet mouth 2 times daily (before meals). fluorouracil (EFUDEX) 5 % apply to affected 40 g 0 11/10/2018 CreamIndications: AK areas mentioned (actinic keratosis) above BID for 2-3 weeks. Calcium Carbonate-Vitamin Take by mouth daily. 0 10/31/2020 D3 (CALCIUM 500 + D) 500 mg(1,250mg) -400 unit Chew fluticasone-salmeterol Inhale 1 puff into 0 07/27/2019 (ADVAIR) 100-50 mcg/dose the lungs every 12 diskus inhaler hours. hydrochlorothiazide Take 12.5 mg by 0 05/19/2018 (HYDRODIURIL) 25 mg mouth daily. tablet documented as of this encounter Plan of Treatment Upcoming Encounters Date Type Specialty Care Team Description 04/04/2022 Office Visit Dermatology Celena Salazar MD [facility] [address] THERESE LE[place], [place] [address] (Wo rk) documented as of this encounter Procedures Procedure Name Priority Date/Time Associated Diagnosis Comme nts CT CHEST WO Routine 09/24/2017 3:38 PM Squamous cell Results for this CONTRAST (GENERIC) EDT carcinoma of lung, pro cedure are in unspecified the results laterality section. documented in this encounter Results CT Chest wo Contrast (Generic) (09/24/2017 3:38 PM EDT) Anatomical Region Laterality Modality Chest Computed Tomography Specimen (Source) Anatomical Location Collection Method / Collectio n Time Received Time / Laterality Volume Impressions 09/24/2017 4:34 PM EDT Impression: 1. ??No evidence of local recurrence or metastatic disease. 2. ??Minimal groundglass opacity in the anterolateral RIGHT lower lobe, likely infectious or inflammatory. Consider betina rt/[address] follow-up which can be limited to the lung bases and performed with low radiation dose technique for resolution versus persistence. I have personally reviewed the image(s) and the residents interpretation and agree with the findings, Verena chamberlain 09/24/2017 4:34 PM Narrative 09/24/2017 4:34 PM EDT EXAMINATION: CT CHEST WO CONTRAST (GENERIC) CLINICAL HISTORY: history of lung cancer , status post resection, chemotherapy, and radiation, rule outrecurrence or a n ew primary tumor TECHNIQUE: Helical CT of the chest was p erformed without contrast. Multiplanar reformatted images were reviewed. COMPARISON: Most recent prior from 09/25. FINDINGS: Lungs and airways: Stable surgical lemos es status post LEFT pneumonectomy. No RIGHT lung pulmonary nodules. Minimal gr oundglass opacity in the anterolateral RIGHT lower lobe, likely infectious or i nflammatory. Pleura and pericardium: No RIGHT pleural effusion or pericardial effusion. Unchanged trace LEFT pleural effusion. Heart and vasculature: The heart is shif elmer to the LEFT, unchanged from prior. No aortic aneurysm. Mediastinum and hilar structures: No lym phadenopathy. Allowing for the lack of intravenous con trast, the portions of the abdominal organs included in the field of view are unremarkable. No adrenal nodules. Osseous structure: No focal lytic or scl erotic osseous lesion. Procedure Note Verena Albright MD - 09/24/2017Formatt ing of this note might be different from the original. EXAMINATION: CT CHEST WO CONTRAST (GENER IC) CLINICAL HISTORY: history of lung cancer , status post resection, chemotherapy, and radiation, rule outrecurrence or a n ew primary tumor TECHNIQUE: Helical CT of the chest was p erformed without contrast. Multiplanar reformatted images were reviewed. COMPARISON: Most recent prior from 09/25. FINDINGS: Lungs and airways: Stable surgical lemos es status post LEFT pneumonectomy. No RIGHT lung pulmonary nodules. Minimal gr oundglass opacity in the anterolateral RIGHT lower lobe, likely infectious or i nflammatory. Pleura and pericardium: No RIGHT pleural effusion or pericardial effusion. Unchanged trace LEFT pleural effusion. Heart and vasculature: The heart is shif elmer to the LEFT, unchanged from prior. No aortic aneurysm. Mediastinum and hilar structures: No lym phadenopathy. Allowing for the lack of intravenous con trast, the portions of the abdominal organs included in the field of view are unremarkable. No adrenal nodules. Osseous structure: No focal lytic or scl erotic osseous lesion. IMPRESSION Impression: 1. No evidence of local recurrence or me tastatic disease. 2. Minimal groundglass opacity in the an terolateral RIGHT lower lobe, likely infectious or inflammatory. Consider betina rt/[address] follow-up which can be limited to the lung bases and performed with low radiation dose technique for resolution versus persistence. I have personally reviewed the image(s) and the residents interpretation and agree with the findings, Verena chamberlain 09/24/2017 4:34 PM Delbert Greenberg MD IMG CT ORDERABLES documented in this encounter Visit Diagnoses Diagnosis Squamous cell carcinoma of lung, unspeci fied laterality documented in this encounter Care Teams Caul Fat Puller Relationship Specialty Start Date End Date Amanda Barnett DO PCP - General Family Medicine 06/19/17 4 [place] [address] documented as of this encounter
--- OUTSIDE RECORDS SUMMARY | 2022-02-02 00:30 | XMS_ITS | Encounter Summary ---
:1950 Author Organization [facility] [place] [address] Care Team Providers Name Role Phone Amanda Barnett DO Primary Care Provider Encounter Details Date Type Department Care Team Description 12/05/2017 Laboratory Appointment Lab 3L [facility] 2 diabetes [facility] mellitus with stage [address] [facility] chronic k [facility] disease, with [place] long-term curre nt use [id number] of insulin [phone] Social History Tobacco Use Types Packs/Day Years [...] Office Visit Dermatology Celena Salazar MD [facility] ER DR THERESE LEOS[place]DERMAT [place], [place] [address] (Wo rk) documented as of this encounter Procedures Procedure Name Priority Date/Time Associated Diagnosis Comme nts CREATININE Routine 12/05/2017 12:03 PM Type 2 diabetes Resul ts for this EDT mellitus with stage 3 proced ure are in the chronic kidney results secti on. disease, with long-term current use of insulin HEMOGLOBIN A1C Routine 12/05/2017 12:03 PM Type 2 diabetes Res ults for this EDT mellitus with stage 3 proced ure are in the chronic kidney results secti on. disease, with long-term current use of insulin documented in this encounter Results (ABNORMAL) Creatinine (12/05/2017 12:03 PM EDT) Analysis Performed At [facility] Signature Creatinine 1.68 (H) 0.70 - [place]ERRE DEL[place]AD[place] 1.20 mg/dL [facility] Estimated GFR 31 (L) >=60 [facility]/1.7 [facility] 3 m?? HOSPITAL LAB[facility]ATORY Comment: The eGFR was calculated using the CKD-EP I equation. As with all creatinine based estimates of kidney function, eGFR values calculated with the CKD-EPI equation are not accurate in patients wi th acute kidney failure, extremes of body mass or the acutely ill. [email or web address] eGFR 36 (L) >=60 mL/min/1.73 m?? [facility] Comment: The eGFR was calculated using the CKD-EP I equation. As with all creatinine based estimates of kidney function, eGFR values calculated with the CKD-EPI equation are not accurate in patients wi th acute kidney failure, extremes of body mass or the acutely ill. [email or web address] Specimen Anatomical Collection Method Collection Time Receive d Time (Source) Location / / Volume Laterality Blood specimen 12/05/2017 12:03 8 (specimen) PM EDT 12:10 PM EDT Resulting Agency Comment Spec In Lab Diane Serra APRN CHEMISTRY ORDERABLES Performing Organization Address City/State/ZIP [place] [address] (ABNORMAL) Hemoglobin A1c (12/05/2017 12:03 PM EDT) Analysis Performed At [facility] Signature Hemoglobin A1C 6.6 (H) 4.3 - 5.6 [facility] % [facility] Comment: Reference Range: 4.3 - 5.6% 5.7 - 6.4% - Increased Risk of Developin g Diabetes Mellitus >= 6.5% - Consistent with diagnosis of D iabetes Mellitus In the absence of hyperglycemia (i.e. pl asma glucose > 200 mg/dL) or classic symptoms of hyperglycemia a repeat measu rement of HbA1c should be performed on a separate sample to confirm the diagnos is. Diagnosis and Classification of Diabetes Mellitus, Diabetes Care 2013; 36: Suppl. 1, S67-76 Est Avg Gluc 143 mg/dL [place] [facility] Comment: eAG equivalents for HbA1c percentages: HbA1c(%) ?eAG(mg/dL) 6.0 ?126 6.5 ?140 7.0 ?154 7.5 ?169 8.0 ?183 8.5 ?197 9.0 ?212 9.5 ?226 10.0 ? 240 Limitations: The eAG calculation has not been validated on women, individuals below 18 years old and above 70 years old, and individuals with hemoglobinopathies. Additional resources are available on [facility] ADA website. Chevy PARTIDA, Jr J, Syed R, et al. ??Tr anslating the A1C assay into estimated average glucose values. ??Diabetes Care 2008:31(8):0000-4327. 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
--- OUTSIDE RECORDS SUMMARY | 2022-02-02 00:30 | XMS_ITS | Encounter Summary ---
:1950 Author Organization [facility] [place] [address] Care Team Providers Name Role Phone Anibal Amanda Alba LAURENT Primary Care Provider Reason for Visit Reason Onset Date Comments Pump/sensor 09/26/2018 Encounter Details Date Type Department Care Team Description 09/26/2018 Telephone Endocrinology at [facility] Princess [place] Pump/[place] [address] Social History Tobacco Use Types Packs/Day Years Used Date Former Smoker Cigarettes Quit: 04/04/19 99 Smokeless Tobacco: Never Used Alcohol Use Standard Drinks/Week Comments No 0 (1 standard drink = 0.6 oz pure alcoho l) Sex Assigned at Date Recorded Not on file documented as of this encounter Miscellaneous Notes Telephone Encounter - Anna Calvillo RN - 11/11/2018 2:17 PM EDT Msg received from [facility] that they faxed a request for amended chart notes and LMN because current info doesn't comply with insurance requirements. Please call [phone] with any questions or fax amended notes and new signed LMN to [phone]. Telephone Encounter - Princess Fay - 10/06/2018 7:33 AM EDT Confirmed 10/01 Telephone Encounter - Princess Fay - 09/26/2018 11:22 AM EDT Letter of medical necessity - physician's written order received from [employer]. Filled out. Office note printed Diane Garsia will sign for Dr. Gupta in his absense. I will fax. documented in this encounter Plan of Treatment Upcoming Encounters Date Type Specialty Care Team Description 04/04/2022 Office Visit Dermatology Celena Salazar MD [facility] ER DR THERESE LEOS[address] [place], [place] [address] (Wo rk) documented as of this encounter Visit Diagnoses Not on filedocumented in this encounter Care Teams Scaffold Erector Relationship Specialty Start Date End Date Amanda Barnett DO PCP - General Family Medicine 06/19/[address] [place] [address] documented as of this encounter
--- OUTSIDE RECORDS SUMMARY | 2022-02-02 00:30 | XMS_ITS | Encounter Summary ---
:1950 Author Organization [facility] [place] [address] Care Team Providers Name Role Phone Amanda Barnett DO Primary Care Provider Reason for Visit Reason Comments Skin Check FSE Encounter Details Date Type Department Care Team Description 11/10/2018 Office Visit Dermatology at [facility] Celena Salazar [place] (actinic keratosis); Mao Franz MD Actinic skin damage [address] [place] [address] [facility] [place], [place] [address] Social History Tobacco Use Types Packs/Day Years Used Date Former Smoker Cigarettes Quit: 04/04/19 99 Smokeless Tobacco: Never Used Alcohol Use Standard Drinks/Week Comments No 0 (1 standard drink = 0.6 oz pure alcoho l) Sex Assigned at Date Recorded Not on file documented as of this encounter Patient Instructions Patient InstructionsJuanita Milligan, [facility] - 11/10/2018 2:00 PM EDT How to use 5-fluorouracil (Efudex) 5% cream Area(s) to be treated: Right cheek, nose Treatment length: Twice daily (morning and evening) for 3 weeks. Instructions for use: 1. Wash your hands before applying. 2. Wash area with a gentle cleanser and pat dry. 3. Use a clean fingertip to apply a small amount to the affected area. Use just enough to cover the area with a thin film. Avoid your eyes, nostrils and mouth. (Note: Even when treating the entire face, a pea-sized amount should be sufficient.) 4. Rub cream into skin. Do NOT cover with a Band-Aid or other coverings. 5. Wash your hands after applying. 6. After 1 hour, you may apply moisturizer, [...] the skin. While you should expect some eept-wu-vxbpsesm discomfort and tenderness, if pain is excessive and interferes with daily activity or keeps you awake at night, you may pause treatment for 1-2 days. Please contact the clinic if you develop a fever or a thick yellow/honey-colored crust over the treated area. Warnings: - Use only as directed. - Do not share this medication. - Do not use other topical or medicated products on the treatment area unless instructed to do so byyour doctor. Contact information: On weekdays (8am to 5pm), please call the clinic at [phone]. After 5pm, and on weekends and holidays, please call the hospital at [phone] and ask for the Bracelet Former Sprayer Leather. documented in this encounter Progress Notes Celena Salazar MD - 11/10/2018 2:00 PM EDT DERMATOLOGY ESTABLISHED PATIENT CLINIC NOTE Date of service: 11/10/2018 Pennie Rodriguez : 1950 Provider: Celena Salazar MD Chief Complaint Patient presents with ??? Skin Check SKIN HX: Skin cancer: No Skin disease: No Other: - Actinic keratoses - s/p LN2, 5-FU - Keratosis pilaris - Xerosis - Nevus (right chest) - Skin tags Family History: NMSC: Father Skin disease: No known ?? Social History: Occupation: Retired, [employer] Marital status: Lives with son EZ Rodriguez is a 68 y.o. female, established patient last seen by Melita Baltazar PA-C. (Bri) Here today for a 1-year full skin exam. Denies any significant changes in health since last appointment.Concerned today about several lesions on her face and tells me that Christina has treated multiple facial lesions with LN2 in the past. Patient was offered and declined a full skin exam today. MEDS: Current Outpatient Medications Medication Sig Dispense Refill ??? ranitidine (ZANTAC) 150 mg Capsule Take 150 mg by mouth 2 times daily. ??? glimepiride (AMARYL) 1 mg Tablet Take 1 mg by mouth every morning (before breakfast). ??? hydroCHLOROthiazide (MICROZIDE) 12.5 mg Capsule Take 12.5 mg by mouth daily. ??? insulin degludec (TRESIBA FLEXTOUCH U-100) 100 unit/mL (3 mL) Insulin Pen Inject 34 Units subcutaneously nightly. ??? acetaminophen (TYLENOL) 500 mg Tablet Take 1,000 mg by mouth every 6 hours as needed for Pain. ??? linagliptin (TRADJENTA) 5 mg Tablet Daily ??? tiotropium (SPIRIVA WITH HANDIHALER) 18 mcg Capsule, w/Inhalation Device Daily ??? insulin glulisine (APIDRA SOLOSTAR) 100 unit/mL Insulin Pen Inject 4-10 Units subcutaneously 2 times daily (before meals). 15 mL 3 ??? lisinopril (PRINIVIL;ZESTRIL) 30 mg Tablet Take 15 mg by mouth daily. ??? PROAIR HFA 90 mcg/actuation inhaler Inhale 2 puffs into the lungs as needed. Reported on 09/25/2016 ??? OXYGEN-AIR DELIVERY SYSTEMS (WALKABOUT 2 OXYGEN SYSTEM MISC[place] [facility]; Combo Route) route as needed. ??? Calcium Carbonate-Vitamin D3 (CALCIUM 500 + D) 500 mg(1,250mg) -400 unit Chew Take by mouth daily. ??? atorvastatin (LIPITOR) 40 mg tablet Take 40 mg by mouth daily. ??? fluticasone-salmeterol (ADVAIR) 100-50 mcg/dose diskus inhaler Inhale 1 puff into the lungs every 12 hours. ??? cyanocobalamin, vitamin B-12, 250 mcg tablet Take 500 mcg by mouth daily. ??? aspirin 81 mg EC tablet Take 81 mg by mouth daily. ??? pramoxine (PROCTOFOAM) 1 % foam (Patient taking differently: PRN for hemorrhoids) ??? fluorouracil (EFUDEX) 5 % Cream apply to affected areas mentioned above BID for 2-3 weeks. (Patient not taking: Reported on 08/12/2018) 40 g 0 No current facility-administered medications for this visit. ADR: Allergies Allergen Reactions ??? Byetta [Exenatide] STOMACH CRAMPS ??? Metformin Diarrhea ??? Morphine Sulfate Nausea And Vomiting ROS: General: feeling well Skin: denies other skin complaints EXAM: General: NAD, pleasant, cooperative Skin: A focused skin examination of the face, significant for??the following: Significant Skin Findings: A. Right cheek, nasal tip, nasal dorsum: Diffuse actinic damage with discrete 0.2-0.3 cm scaly irregular pink papules. ASSESSMENT/PLAN: A. Actinic Keratosis / Actinic Skin Damage - Explained etiology, natural history and premalignent potential of these lesions. - Discussed treatment options (LN2, 5-FU) and their respective risks and benefits. - Patient elects to proceed with 5-FU field treatment of the right cheek and nose. - Start Rx: 5-fluorouracil (Efudex) 5% cream: Apply a thin layer to affected areas on the right cheek and nose twice daily (morning and night) as tolerated for 3 weeks. Patient counselin-FU - Reviewed expectations, typical reaction, and restrictions on light exposure during treatment. Patient understands that affected area will likely become red, irritated and tender during treatment and that this is a normal reaction. - Discussed option to hold treatment for 1-2 days if inflammation becomes too intense or patient experiences discomfort. Advised patient to call clinic if pain is excessive, or infection is suspected. - Counseled that patient may apply moisturizer, sunscreen and/or other cosmetics to the treated area1 hour following application. Follow up: RTC in 3-4 months for Efudex follow up; sooner if needed. Appointment scheduled before exiting. Instructed patient to call with questions or concerns. I am documenting this encounter acting as the scribe for and in the presence of Dr. Salazar: Ashlee Donaldson and Juanita Milligan CMA I performed the above scribed service and agree with the accuracy of the documentation in this encounter. 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
--- OUTSIDE RECORDS SUMMARY | 2022-02-02 00:30 | XMS_ITS | Encounter Summary ---
:1950 Author Organization [facility] [place] [address] Care Team Providers Name Role Phone Amanda Barnett DO Primary Care Provider Encounter Details Date Type Department Care Team Description 09/24/2017 Hospital Encounter Hematology and Squamou s cell carcinoma [place] [facility] [place], unspecified [facility] [place] [address] Social History Tobacco Use Types Packs/Day [...] needed. Reported on 09/25/2016 OXYGEN-AIR DELIVERY by [facility].(Non-Drug; 0 SYSTEMS (WALKABOUT 2 Combo Route) route OXYGEN SYSTEM [facility]) as needed. atorvastatin (LIPITOR) 40 Take 40 [...] 04/04/2022 Office Visit Dermatology Celena Salazar MD [facility] [address] THER[address] LE[address] [place], [place] [address] (Wo rk) documented as of this encounter Procedures Procedure Name Priority Date/Time Associated Comments Diagnosis HEMOGRAM STAT 09/24/2017 2:30 PM Squamous cell Results for this EDT carcinoma of lung, procedure are in unspecified the results laterality section. DIFFERENTIAL, STAT 09/24/2017 2:30 PM Squamous cell Results for this AUTOMATED EDT carcinoma of lung, procedure are in unspecified the results laterality section. CBC (WITH DIFF) STAT 09/24/2017 2:30 PM Squamous cell EDT carcinoma of lung, unspecified laterality LACTATE DEHYDROGENASE STAT 09/24/2017 2:30 PM Squamous cell Results for this EDT carcinoma of lung, procedure are in unspecified the results laterality section. COMPREHENSIVE STAT 09/24/2017 2:30 PM Squamous cell Results for this METABOLIC PANEL EDT carcinoma of lung, proced ure are in (NON-FASTING) unspecified the results laterality section. documented in this encounter Results (ABNORMAL) Differential, Automated (09/24/2017 2:30 PM EDT) [facility] Method Time Signature Neutrophils % 75.5 % [facility] Neutr Abs (ANC) 6.80 (H) 1.70 - [facility] 6.10 [facility] x10(3)/[facility] LABORATORY Lymphocytes % 16.1 % [facility] Lymphocytes Abs 1.4 0.9 - 3.2 [facility] x10(3)/[facility] LABORATORY Monocytes % 5.6 % [facility] Monocyte Abs 0.5 0.3 - 0.9 [facility] x10(3)/[facility] LABORATORY Eosinophils % 1.6 % [facility] Eosinophils Abs 0.1 0.0 - 0.4 [facility] x10(3)/[facility] LABORATORY Basophils % 0.8 % [facility] Basophils Abs 0.1 0.0 - 0.1 [facility] x10(3)/[facility] LABORATORY Immature Gran % 0.40 % [facility] Comment: Immature granulocytes(IG's)percentage an d absolute count will include metamyelocytes, myelocytes, and promyelo cytes. Blood smears from CBCs yielding IG's will be scanned manually for concor dance. If this scan disagrees with the automated IG or if promyelocytes are not ed, a manual differential will be performed. Shanae Gran Abs 0.04 0.00 - 0.04 x10(3)/[facility] LABORATORY Specimen Anatomical Collection Method Collection Time Receive d Time (Source) Location / / Volume Laterality Blood specimen 09/24/2017 2:30 PM 018 2:39 (specimen) EDT PM EDT Resulting Agency Comment Spec In Lab Delbert Greenberg MD HEMATOLOGY ORDERABLES Performing Organization Address City/State/[place] [address] (ABNORMAL) Hemogram (09/24/2017 2:30 PM EDT) Analysis Performed At Patho logist Time Signature WBC 9.0 4.0 - 9.5 [facility] x[facility](3[facility] LABORATORY RBC 3.65 (L) 4.00 - [place] LE[place] 5.21 [facility] x10(6)/[facility] LABORATORY Hemoglobin 10.9 (L) 11.7 - [facility] 15.5 gm/dL [facility] Hematocrit 34.5 (L) 35.7 - [facility] 45.8 % [facility] MCV 94.5 (H) 82.6 - [facility] 94.4 [facility] LABORATORY MCH 29.9 27.1 - [place] 32.0 pg [facility] MCHC 31.6 (L) 31.7 - [facility] 35.0 gm/dL [facility] Platelets 302 145 - 357 [facility] x10(3)/[facility] LABORATORY RDWSD 48.2 (H) 37.0 - [facility] 46.0 [facility] LABORATORY RDWCV 13.9 11.5 - [facility] 14.1 % [facility] LAB[facility]ORY MPV 10.4 7.6 - 12.9 [facility] nRBC % Auto 0.0 % [facility] nRBC Abs Auto 0.000 0.000 - [facility] 0.000 [facility] x10(3)/[facility] LABORATORY Specimen Anatomical Collection Method Collection Time Receive d Time (Source) Location / / Volume Laterality Blood specimen 09/24/2017 2:30 PM 018 2:39 (specimen) EDT PM EDT Resulting Agency Comment Spec In Lab Delbert Greenberg MD HEMATOLOGY ORDERABLES Performing Organization Address City/State/[place] [address] (ABNORMAL) Comprehensive metabolic panel (non-fasting) (09/24/2017 2:30 PM EDT) athologist Signature Glucose Lvl 140 65 - 199 [facility] mg/dL [facility] Comment: Diabetes: >=200 mg/dL plus symp toms BUN 45 (H) 8 - 18 mg/dL [facility] Creatinine 1.47 (H) 0.70 - 1.20 mg/dL [facility] Sodium 140 135 - 145 mmol/L [facility] Potassium 4.3 3.5 - 5.0 mmol/L [facility] Comment: Please note: ??Patients with WBC >100,00 0 may have falsely elevated Potassium levels. ??For accurate Potassium quantif ication in these patients send serum separator tube (gold top) for subsequent determinations. ??Contact the Clinical Chemistry Laboratory if there are any qu estions. Chloride 103 98 - 107 mmol/L [facility] CO2 23 22 - 31 mmol/L [facility] Anion Gap 14 5 - 15 mmol/L [facility] Calcium 9.2 8.5 - 10.5 mg/dL [facility] Total Protein 7.3 6.1 - 8.0 gm/dL [facility] Albumin 3.8 3.2 - 5.2 gm/dL [facility] AST 8 0 - 30 unit/L [facility] ALT 11 0 - 30 unit/L [facility] Alk Phos 82 40 - 104 unit/L [facility] Total Bilirubin 0.2 0.2 - 1.3 mg/dL [facility] Estimated GFR 35 (L) >=60 [facility] Comment: The reported eGFR should be multiplied b y 1.2 for patients. The MDRD is not an appropriate measure o f renal function for patients with body mass extremes or in patients with acute kidney failure. http://[employer]/DHnkdep http://[employer]/DHMCnkf Specimen Anatomical Collection Method Collection Time Receive d Time (Source) Location / / Volume Laterality Blood specimen 09/24/2017 2:30 PM 018 2:39 (specimen) EDT PM EDT Resulting Agency Comment Spec In Lab Delbert Greenberg MD CHEMISTRY ORDERABLES Performing Organization Address City/[facility]/[place] [address] Lactate Dehydrogenase (09/24/2017 2:30 PM EDT) athologist Signature LDH 159 110 - 220 [facility] unit/L [facility] Specimen Anatomical Collection Method Collection Time Receive d Time (Source) Location / / Volume Laterality Blood specimen 09/24/2017 2:30 PM 018 2:39 (specimen) EDT PM EDT Resulting Agency Comment Spec In Lab Delbert Greenberg MD CHEMISTRY ORDERABLES Performing Organization Address City/[facility]/[place] [address] documented in this encounter Visit Diagnoses Diagnosis Squamous cell carcinoma of lung, unspeci fied laterality documented in this encounter Care Teams Transplant Coordinator Relationship Specialty Start Date End Date Amanda Barnett DO PCP - General Family Medicine 06/19/17 [address] [place] [address] documented as of this encounter
--- OUTSIDE RECORDS SUMMARY | 2022-02-02 00:30 | XMS_ITS | Encounter Summary ---
:1950 Author Organization [facility] [place] [address] Care Team Providers Name Role Phone Amanda Barnett DO Primary Care Provider Reason for Referral Diagnostic Test (Routine) - Specialty Diagnoses / Procedures Referred By Contact Refer red To Contact Radiology Diagnoses Squamous cell carcinoma of left lung Delbert Martin MD [facility] Rad Ct Scan Procedures CT Chest wo Contrast (Generic) [facility] [place] [address] [place] [address] Referral ID Status Reason Start Date Expiration Visits Visits Date Requested Authorized [id number] Specialty 12/31/2017 12/31/2018 1 1 Service Requested Reason for Visit Reason Comments Follow-up Lung Cancer Encounter Details Date Type Department Care Team Description 12/31/2017 Office Visit Hematology and Delbert Martin us cell Oncology at [facility] Darrell carcinoma of left [facility] [place], [place] MEDICAL ONCOLOGY [id number] [place] [address] (Wo rk) Social History Tobacco Use Types Packs/Day Years Used Date Former Smoker Cigarettes Quit: 04/04/19 99 Smokeless Tobacco: Never Used Alcohol Use Standard Drinks/Week Comments No 0 (1 standard drink = 0.6 oz pure alcoho l) Sex Assigned at Date Recorded Not on file documented as of this encounter Last Filed Vital Signs Vital Sign Reading Time Taken Comments Blood Pressure 141/61 12/31/2017 4:06 PM EDT Pulse 93 12/31/2017 4:02 PM EDT Temperature 36 ??C (96.8 ??F) 12/31/2017 4:02 PM EDT Respiratory Rate 18 12/31/2017 4:02 PM EDT Oxygen Saturation 98% 12/31/2017 4:02 PM EDT Inhaled Oxygen Concentration - - Weight 123.8 kg (273 lb) 12/31/2017 4:02 PM EDT Height 167.6 cm (5' 6) 12/31/2017 4:02 PM EDT Body Mass Index 44.06 12/31/2017 4:02 PM EDT documented in this encounter Progress Notes Delbert Martin MD - 12/31/2017 4:15 PM EDT Subjective: Patient ID: Pennie Rodriguez is a 67 y.o. female with resected (left pneumonectomy) stage IIIA ([id number]) non-small cell lung cancer in March 2004. She received adjuvant chemotherapy followed by post-operative RT. Returning for follow-up. HPI Overall the patient feels about the same to a little better, when compared to 3 months ago. She reports that her energy has remained stable. Her breathing is comfortable, no dyspnea at rest. She still has exertional dyspnea that has gotten a little better after she was able to lose weight over the past 6 months. She has occasional cough without hemoptysis. The patient uses oxygen with activity, this is unchanged. Her appetite is good, no difficulty swallowing, no nausea. She is following a diabetic diet and has been able to lose 45 pounds intentionally over the past 6-10 months. The patient is being followed by a desktop technician for elevated creatinine. With her weight loss there has been a trend towards better glucose control. No fevers/chills, headaches, diplopia or visual defects, difficulty swallowing, heartburn, N/V, abd pain, diarrhea or constipation, urinary complaints, lightheadedness, falls, focal weakness, bleeding, rash, neck/back/new pain (has longstanding arthritis pain which is unchanged). There is intermittent numbness in the feet, not significantly changed from last year. She reports pain in her hip and knee, which is unchanged from prior. Review of Systems See HPI. ROS otherwise unremarkable. MEDICATIONS AND ALLERGIES: Please see this patient's medications and allergies from today, 12/31/2017. I personally reviewed this patient's medications and allergies. Current Outpatient Prescriptions on File Prior to Visit Medication Sig Dispense Refill ??? linagliptin (TRADJENTA) 5 mg Tablet Daily ??? tiotropium (SPIRIVA WITH HANDIHALER) 18 mcg Capsule, w/Inhalation Device Daily ??? cimetidine (TAGAMET) 400 mg Tablet Take 1 tablet by mouth 2 times daily. 60 tablet 3 ??? insulin glulisine (APIDRA SOLOSTAR) 100 unit/mL Insulin Pen Inject 4-10 Units subcutaneously 2 times daily (before meals). 15 mL 3 ??? insulin glargine (LANTUS SOLOSTAR) 100 unit/mL pen Inject 42 Units subcutaneously nightly. 45 mL3 ??? glimepiride (AMARYL) 4 mg Tablet Take 1 tablet by mouth 2 times daily (before meals). 180 tablet3 ??? fluorouracil (EFUDEX) 5 % Cream apply to affected areas mentioned above BID for 2-3 weeks. (Patient not taking: Reported on 09/24/2017) 40 g 0 ??? lisinopril (PRINIVIL;ZESTRIL) 30 mg Tablet Take 15 mg by mouth daily. ??? PROAIR HFA 90 mcg/actuation inhaler Inhale 2 puffs into the lungs as needed. Reported on 09/25/2016 ??? OXYGEN-AIR DELIVERY SYSTEMS (WALKABOUT 2 OXYGEN SYSTEM MISC) by [facility].(Non- Drug; Combo Route) route. ??? Calcium Carbonate-Vitamin D3 (CALCIUM 500 + D) 500 mg(1,250mg) -400 unit Chew Take by mouth 2 times daily. ??? atorvastatin (LIPITOR) 40 mg tablet Take 40 mg by mouth daily. ??? fluticasone-salmeterol (ADVAIR) 100-50 mcg/dose diskus inhaler Inhale 1 puff into the lungs every 12 hours. ??? hydrochlorothiazide (HYDRODIURIL) 25 mg tablet Take 12.5 mg by mouth daily. ??? cyanocobalamin, vitamin B-12, 250 mcg tablet Take 500 mcg by mouth daily. ??? aspirin 81 mg EC tablet Take 81 mg by mouth daily. ??? pramoxine (PROCTOFOAM) 1 % foam No current facility-administered medications on file prior to visit. Allergies Allergen Reactions ??? Byetta [Exenatide] STOMACH CRAMPS ??? Metformin Diarrhea ??? Morphine Sulfate Nausea And Vomiting Physical Exam: Vitals: 12/31/17 1602 Patient Position: Sitting Pulse: 93 Resp: 18 Temp: 36 ??C (96.8 ??F) TempSrc: Temporal SpO2: 98% Weight: 123.8 kg (273 lb) Height: 167.6 cm (5' 6) Wt Readings from Last 3 Encounters: 12/31/17 123.8 kg (273 lb) 12/05/17 122.9 kg (271 lb) 09/24/17 123.3 kg (271 lb 12.8 oz) Objective: Physical Exam Constitutional: She is oriented to person, place, and time. Vital signs are normal. She is cooperative. Obese Mouth/Throat: Oropharynx is clear and moist. Neck: Normal range of motion. No lymphadenopathy: Cardiovascular: Normal rate, regular rhythm and normal heart sounds. Pulmonary/Chest: Effort normal. She has decreased breath sounds on the left. No wheezing, rhonchi, rales. Abdominal: Soft. Bowel sounds are normal. Non-tender to palpation. Musculoskeletal: Normal range of motion. Trace/1+ edema around the ankles bilaterally. Neurological: She is alert and oriented to person, place, and time. Cranial nerves grossly intact. Skin: Skin is warm and dry. No rash noted. LABORATORY EVALUATION: Recent Results (from the past 72 hour(s)) Lactate Dehydrogenase Result Value Ref Range LDH 174 110 - 220 unit/L Comprehensive metabolic panel (non-fasting) Result Value Ref Range Glucose Lvl 114 65 - 199 mg/dL BUN 47 (H) 8 - 18 mg/dL Creatinine 1.65 (H) 0.70 - 1.20 mg/dL Sodium 141 135 - 145 mmol/L Potassium 4.8 3.5 - 5.0 mmol/L Chloride 104 98 - 107 mmol/L CO2 27 22 - 31 mmol/L Anion Gap 10 5 - 15 mmol/L Calcium 9.2 8.5 - 10.5 mg/dL Total Protein 6.9 6.1 - 8.0 gm/dL Albumin 3.9 3.2 - 5.2 gm/dL AST 10 0 - 30 unit/L ALT 12 0 - 30 unit/L Alk Phos 88 40 - 104 unit/L Total Bilirubin 0.2 0.2 - 1.3 mg/dL eGFR 31 (L) >=60 mL/min/1.73 m?? eGFR 36 (L) >=60 mL/min/1.73 m?? PTH Result Value Ref Range PTH 56 15 - 65 pg/mL Phosphorus Result Value Ref Range Phosphorus 3.0 2.5 - 4.5 mg/dL Hemogram Result Value Ref Range WBC 8.8 4.0 - 9.5 x10(3)/mcL RBC 3.82 (L) 4.00 - 5.21 x10(6)/mcL Hemoglobin 11.2 (L) 11.7 - 15.5 gm/dL Hematocrit 35.5 (L) 35.7 - 45.8 % MCV 92.9 82.6 - 94.4 fL MCH 29.3 27.1 - 32.0 pg MCHC 31.5 (L) 31.7 - 35.0 gm/dL Platelets 245 145 - 357 x10(3)/mcL RDWSD 47.7 (H) 37.0 - 46.0 fL RDWCV 14.2 (H) 11.5 - 14.1 % MPV 10.3 7.6 - 12.9 fL nRBC % Auto 0.0 % nRBC Abs Auto 0.000 0.000 - 0.000 x10(3)/mcL Differential, Automated Result Value Ref Range Neutrophils % 70.7 % Neutr Abs (ANC) 6.25 (H) 1.70 - 6.10 x10(3)/mcL Lymphocytes % 18.9 % Lymphocytes Abs 1.7 0.9 - 3.2 x10(3)/mcL Monocytes % 7.6 % Monocyte Abs 0.7 0.3 - 0.9 x10(3)/mcL Eosinophils % 1.5 % Eosinophils Abs 0.1 0.0 - 0.4 x10(3)/mcL Basophils % 0.8 % Basophils Abs 0.1 0.0 - 0.1 x10(3)/mcL Immature Gran % 0.50 % Shanae Gran Abs 0.04 0.00 - 0.04 x10(3)/mcL I personally reviewed the laboratory data showing elevated creatinine, stable to slightly increased from prior. I personally reviewed a CT scan dated 12/31/2017 that showed that a small area of groundglass opacityseen at the right lung base on 09/24/2017 has resolved likely represented focal inflammatory/infectious change. There were no new findings. Assessment and Plan: A 67 y.o. patient with resected stage IIIA ([id number]) non-small cell lung cancer in 2004 status post adjuvant chemotherapy and sequential postoperative radiation therapy following her left pneumonectomy. She had a short-term follow-up scan to assess ground-glass opacities seen on her last imaging.. These have resolved. There is no radiographic evidence of recurrent disease on today's imaging. I counseled the patient about these results, their implications for the prognosis, as well as the available treatment options. The patient understands that despite completing all therapy, the risks for recurrence remain. While the risks decrease with time, they do not disappear and the patient will also remainat risk for a new primary cancer of the aerodigestive tract. Continued regular surveillance is recommended. I discussed the limited data on the interval between imaging with most practices performing annual examinations. I strongly advised not to restart smoking as ongoing smoking significantly increases the risks for second primary cancer, as well as cardiovascular and pulmonary complications, amongothers. I counseled her on the importance of regular health maintenance and I encouraged her to continue with her follow-up by her primary care physician. I reviewed her elevated creatinine for which she is being followed by a desktop technician. This condition is unlikely to be related to her cancer or prior treatments, given the time interval, I encouraged her to continue the follow-up with the renal an endocrine specialist for adequate glucose control. I counseled on weight management and I encouraged her to try to maintain the accomplished weight loss. The patient had numerous questions that were answered to her satisfaction. I advised to call if there are any fever, shortness of breath, new pain, weakness, bleeding or any other unusual medical symptoms. The patient will come back in 14 months (to avoid an appointment in the winter) for reevaluation. I, Bj Farnsworth, have performed the documentation for this encounter in the presence of and acting as a scribe for DELBERT MARTIN MD. All medical record entries made by the Scribe were at my direction and personally dictated by me. I have reviewed the chart and agree that the record accurately reflects my personal performance of the history, physical exam, assessment and plan. I have also personally directed, reviewed, and agree with the discharge instructions. 12/31/17 documented in this encounter Plan of Treatment Upcoming Encounters Date Type Specialty Care Team Description 04/04/2022 Office Visit Dermatology Celena Salazar MD [facility] ER DR [address] [place], [place] [address] (Wo rk) documented as of this encounter Results CT Chest wo Contrast (Generic) (05/19/2019 12:02 PM EST) Anatomical Region Laterality Modality Chest Computed Tomography Specimen (Source) Anatomical Location Collection Method / Collectio n Time Received Time / Laterality Volume Impressions 05/19/2019 2:29 PM EST No evidence of local recurrence or metastatic disease. I have personally reviewed the image(s) and the resident's interpretation and agree with the findings, Verena chamberlain 05/19/2019 2:29 PM Thank you for letting us participate in the care of this patient. For questions regarding this report, please contact e number below. ? Narrative 05/19/2019 2:29 PM EST EXAMINATION: CT CHEST WO CONTRAST (GENERIC) CLINICAL HISTORY: history of lung cancer , status post resection, chemotherapy, and radiation, rule out recurrence or a new primary tumor TECHNIQUE: 3.75mm thick axial contiguous sections were obtained through the chest via helical acquisition without in travenous contrast administration. Thin-section reconstructions as well as coronal and sagittal reformatted images were generated. COMPARISON: Multiple prior chest radiogr aphs, most recent dated 12/31/2017 FINDINGS: Pulmonary parenchyma: Patient is status post left pneumonectomy with stable postpneumonectomy changes. No right pulm onary nodules. Similar appearance of atelectasis/scarring in the right upper lobe. Airways: No new findings. Pleura: No right pleural effusion. Lymph nodes:No significant findings. Heart, pericardium, and great vessels: T he heart is shifted to the left, unchanged from prior. Moderate coronary artery calcifications. Other mediastinal structures: No signifi cant findings. Lower neck: No significant findings. Upper abdomen: No significant findings. Body wall soft tissues: No significant f indings. Skeletal structures: Degenerative change s of the thoracic spine. Procedure Note Verena Albright MD - 05/19/2019Formatt ing of this note might be different from the original. EXAMINATION: CT CHEST WO CONTRAST (GENER IC) CLINICAL HISTORY: history of lung cancer , status post resection, chemotherapy, and radiation, rule out recurrence or a new primary tumor TECHNIQUE: 3.75mm thick axial contiguous sections were obtained through the chest via helical acquisition without in travenous contrast administration. Thin-section reconstructions as well as coronal and sagittal reformatted images were generated. COMPARISON: Multiple prior chest radiogr aphs, most recent dated 12/31/2017 FINDINGS: Pulmonary parenchyma: Patient is status post left pneumonectomy with stable postpneumonectomy changes. No right pulm onary nodules. Similar appearance of atelectasis/scarring in the right upper lobe. Airways: No new findings. Pleura: No right pleural effusion. Lymph nodes:No significant findings. Heart, pericardium, and great vessels: T he heart is shifted to the left, unchanged from prior. Moderate coronary artery calcifications. Other mediastinal structures: No signifi cant findings. Lower neck: No significant findings. Upper abdomen: No significant findings. Body wall soft tissues: No significant f indings. Skeletal structures: Degenerative change s of the thoracic spine. IMPRESSION No evidence of local recurrence or metas tatic disease. I have personally reviewed the image(s) and the resident's interpretation and agree with the findings, Verena chamberlain 05/19/2019 2:29 PM Thank you for letting us participate in the care of this patient. For questions regarding this report, please contact e number below. Delbert Martin MD IMG CT ORDERABLES (ABNORMAL) Comprehensive metabolic panel (non-fasting) (05/19/2019 10:59 AM EST) athologist Signature Glucose Lvl 132 65 - 199 [facility] mg/dL [facility] Comment: Diabetes: >=200 mg/dL plus symp toms BUN 27 (H) 8 - 18 mg/dL [facility] Creatinine 1.36 (H) 0.70 - 1.20 mg/dL [facility] Sodium 143 135 - 145 mmol/L [facility] Potassium 4.6 3.5 - 5.0 mmol/L [facility] Comment: Please note: ??Patients with WBC >100,00 0 may have falsely elevated Potassium levels. ??For accurate Potassium quantif ication in these patients send serum separator tube (gold top) for subsequent determinations. ??Contact the Clinical Chemistry Laboratory if there are any qu estions. Chloride 105 98 - 107 mmol/L [facility] CO2 26 22 - 31 mmol/L [facility] Anion Gap 12 5 - 15 mmol/L [facility] Calcium 9.2 8.5 - 10.5 mg/dL [facility] Total Protein 6.9 6.1 - 8.0 gm/dL [facility] Albumin 3.8 3.2 - 5.2 gm/dL [facility] AST 12 0 - 30 unit/L [facility] ALT 11 0 - 30 unit/L [facility] Alk Phos 102 35 - 105 unit/L [facility] Total Bilirubin 0.2 0.2 - 1.3 mg/dL [facility] Estimated GFR 39 (L) >=60 mL/min/1.73 m?? [facility] Comment: The eGFR was calculated using the CKD-EP I equation. As with all creatinine based estimates of kidney function, eGFR values calculated with the CKD-EPI equation are not accurate in patients wi th acute kidney failure, extremes of body mass or the acutely ill. [email or web address] eGFR 46 (L) >=60 mL/min/1.73 m?? [facility] Comment: The eGFR was calculated using the CKD-EP I equation. As with all creatinine based estimates of kidney function, eGFR values calculated with the CKD-EPI equation are not accurate in patients wi th acute kidney failure, extremes of body mass or the acutely ill. [email or web address] Specimen Anatomical Collection Method Collection Time Receive d Time (Source) Location / / Volume Laterality Blood specimen 05/19/2019 10:59 0 (specimen) AM EST 11:17 AM EST Resulting Agency Comment Spec In Lab Delbert Martin MD CHEMISTRY ORDERABLES Performing Organization Address City/State/ZIP Code Phon e Number [address] Lactate Dehydrogenase (05/19/2019 10:59 AM EST) P athologist Signature LDH 181 110 - 220 [facility] unit/[facility] Specimen Anatomical Collection Method Collection Time Receive d Time (Source) Location / / Volume Laterality Blood specimen 05/19/2019 10:59 0 (specimen) AM EST 11:17 AM EST Resulting Agency Comment Spec In Lab Delbert Martin MD CHEMISTRY ORDERABLES Performing Organization Address City/[facility]/[place] [address] documented in this encounter Visit Diagnoses Diagnosis 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
--- OUTSIDE RECORDS SUMMARY | 2022-02-02 00:30 | XMS_ITS | Encounter Summary ---
:1950 Author Organization [facility] [place] [address] Care Team Providers Name Role Phone Amanda Barnett DO Primary Care Provider Encounter Details Date Type Department Care Team Description 05/15/2019 Telephone Endocrinology at [facility] [place] [address] Social History Tobacco Use Types Packs/Day Years Used Date Former Smoker Cigarettes Quit: 04/04/19 99 Smokeless Tobacco: Never Used Alcohol Use Standard Drinks/Week Comments No 0 (1 standard drink = 0.6 oz pure alcoho l) Sex Assigned at Date Recorded Not on file documented as of this encounter Miscellaneous Notes Telephone Encounter - Nini Tello - 05/15/2019 2:20 PM EST Left message and sent letter to clifford tabares documented in this encounter Plan of Treatment Upcoming Encounters Date Type Specialty Care Team Description 04/04/2022 Office Visit Dermatology Celena Salazar MD [facility] ER [address] [place], [place] [address] (Wo rk) documented as of this encounter Visit Diagnoses Not on filedocumented in this encounter Care Teams Turning And Beading Machine Operator Relationship Specialty Start Date End Date Amanda Barnett DO PCP - General Family Medicine 06/19/[address] [place] [address] documented as of this encounter
--- OUTSIDE RECORDS SUMMARY | 2022-02-02 00:30 | XMS_ITS | Encounter Summary ---
:1950 Author Organization [facility] [place] [address] Care Team Providers Name Role Phone Amanda Barnett DO Primary Care Provider Reason for Referral Consultation (Routine) - Closed Specialty Diagnoses / Procedures Referred By Contact Refer red To Contact Weight and Wellness Diagnoses Morbid obesity Gage Gupta, H[facility] [address] [facility] [place] [phone] Fax: Referral ID Status Reason Start Date Expiration Date Visits V isits Requested Authorized [id number] Closed Consult, 08/12/2018 08/12/2019 1 1 Test & Treat Encounter Details Date Type Department Care Team Description 08/12/2018 Office Visit Endocrinology at [facility] Gage Walton, Morbid obesity [facility] [place] [phone] [facility] [phone] [address] [place] [address] (Wo rk) Social History Tobacco Use Types Packs/Day Years Used Date Former Smoker Cigarettes Quit: 04/04/19 99 Smokeless Tobacco: Never Used Alcohol Use Standard Drinks/Week Comments No 0 (1 standard drink = 0.6 oz pure alcoho l) Sex Assigned at Date Recorded Not on file documented as of this encounter Last Filed Vital Signs Vital Sign Reading Time Taken Comments Blood Pressure 101/49 08/12/2018 2:09 PM EDT Pulse 80 08/12/2018 2:09 PM EDT Temperature - - Respiratory Rate - - Oxygen Saturation - - Inhaled Oxygen Concentration - - Weight 122.4 kg (269 lb 12.8 oz) 08/12/2018 2:09 PM EDT Height 165.1 cm (5' 5) 08/12/2018 2:09 PM EDT Body Mass Index 44.9 08/12/2018 2:09 PM EDT documented in this encounter Patient Instructions Patient InstructionsCrGage kimble MD - 08/12/2018 2:30 PM EDT Obtain Freestyle documented in this encounter Progress Notes Gage Gupta MD - 08/12/2018 2:30 PM EDT Ms. Pennie Rodriguez is an 67 y.o. female who presents for ongoing care of Diabetes type II Interval history: Overall she is feeling well. Her current diabetes medication regimen is: Tresiba 34 units glmeperide 1mg with breakfast tradjenta 5mg apidra per sliding scale She feels that her glycemic control is excellent and particularly that Tresiba is superior to lantusfor blood sugar control. She feels that overall her blood sugars have been quite good. She was only <70mg/dL when she accidentally took tresiba instead of apidra and required an ER visit for hypoglycemia management. Blood sugar log 30d avg 183 No lows <70 POC A1c 7.3% recently at PCP's office Due to see eye doctor in November for routine examination She continues to see the barrel reamer regularly for CKD management. Her GFR in Apr was stable from prior (~40) Current Outpatient Medications: ??? ranitidine (ZANTAC) 150 mg Capsule, Take 150 mg by mouth 2 times daily., Disp: , Rfl: ??? glimepiride (AMARYL) 1 mg Tablet, Take [...] w/Inhalation Device, Daily, Disp: , Rfl: ??? insulin glulisine (APIDRA SOLOSTAR) 100 unit/mL Insulin Pen, Inject 4-10 Units subcutaneously 2 times daily (before meals)., Disp: 15 mL, Rfl: 3 ??? lisinopril (PRINIVIL;ZESTRIL) 30 mg Tablet, Take 15 mg by mouth daily., Disp: , Rfl: ??? PROAIR HFA 90 mcg/actuation inhaler, Inhale 2 puffs into the lungs as needed. Reported on 09/25/2016, Disp: , Rfl: ??? OXYGEN-AIR DELIVERY SYSTEMS (WALKABOUT 2 OXYGEN SYSTEM [facility]), by [facility].(Non- Drug; Combo Route) route., Disp: , Rfl: [...] 1 % foam, , Disp: , Rfl: ??? fluorouracil (EFUDEX) 5 % Cream, apply to affected areas mentioned above BID for 2-3 weeks. (Patient not taking: Reported on 08/12/2018), Disp: 40 g, Rfl: 0 Past Medical History: Diagnosis Date ??? Anemia After chemo but this has resolved per pt. ??? Arthritis ??? Asthma ??? COPD (chronic obstructive pulmonary disease) ??? Diabetes mellitus ??? GERD (gastroesophageal reflux disease) ??? Hoarseness Evaluated by Dr Leslie. Attributed to inhalers. ??? Hyperlipidemia ??? Hypertension ??? Lung cancer Tx surgically, XRT and chemotherapy ??? Obesity ??? Stasis dermatitis Patient Active Problem List Diagnosis ??? Myopia ??? Presbyopia OU ??? AK (actinic keratosis) ??? KP (keratosis pilaris) ??? Xerosis cutis ??? Pseudophakia of both eyes (OD - 03/15/15, OS - 02/15/15) ??? IDDM (insulin dependent diabetes mellitus) ??? Obesity ??? Hyperlipidemia ??? Asthma ??? Diabetes mellitus type II Overview Note: ??? Squamous cell carcinoma of lung, left Overview Note: female with resected stage IIIA (pT2N2) non-small cell lung cancer status post adjuvant chemotherapy and postoperative thoracic radiation therapy now returning for reevaluation. Physical Exam: Patient Vitals for the past 24 hrs: Pulse BP 08/12/18 1409 80 101/49 Wt & BMI By Encounter Date Office Visit from 08/12/2018 in Endocrinology at [facility] Office Visit from 05/19/2018 in Nephrology Hypertension at [facility] Weight 122.4 kg (269 lb 12.8 oz) 1 08/12/2018 1409 120.7 kg (266 lb) 1 05/19/2018 1307 BMI 44.89 1 08/12/2018 1409 42.93 1 05/19/2018 1307 General: no acute distress, pleasant, sitting comfortably Face: not round or red Eyes: no lid lag; normal eye movements Nose: not enlarged Mouth: Mucous membranes moist Neck: no supraclavicular fat pads; trachea midline Respiratory: symmetrical chest expansion, breathing comfortably on room air Cardiovascular: 2+ DP pulses, regular rhythm Musculoskeletal: moving all 4 extremities normally; normal female musculature Skin: normal temperature/texture, no foot wounds Neurological: no tremors; normal sensation on feet to 10g monofilament Psychological: alert/oriented to person, place, time; normal affect; memory intact; normal judgement/insight Radiology Studies: Laboratory Data: Assessment / Plan: 1) Diabetes Mellitus Type II, controlled - complicated by microalbuminuria, obesity - current degree of glycemic control is reasonable given other comorbidities (such as CKD) predisposing to hypoglycemia) - Continue current medications. I provided information for her to obtain [email or web address] [email or web address] CGM system to more effectively assess blood sugar trends - given CKD and history of adverse GI event (diarrhea), hold off on metformin - reminded patient to have yearly eye exam to assess for retinopathy I am recommending this patient get a Omkar CGM for personal use. Pt has MEDICARE for insurance: Please remove information that does not apply: Patient is on Multiple Daily Injections: Diagnosis: Diabetes Mellitus Patient performs SMBG at least 4x per day Patient administers 3 or more insulin injections per day Patient frequently adjusts meal time insulin doses Patient needs a therapeutic CGM I plan to see this pt every 6 months following this initial prescription of the CGM to assess adherence to their CGM regimen and diabetes treatment plan. 2) Morbid obesity with significant complications - we have discussed at length over the last two visits the benefits of 5-10% weight loss for improving cardiovascular health. [facility] recommend [facility] and she was agreeable, so I havemade a referral - given adverse reaction to [place] in past (severe GI distress), hold off on GLP1r agonists for now Please do not hesitate to contact me with questions COUNSELING/COORDINATION OF CARE DOCUMENTATION: I spent 30 minutes face to face with the patient, 20 of which was spent counseling about the issues described above Return to clinic 3-4 months Gage Gupta MD Social Worker Delinquency Preventionspot washer Endocrinology Section [facility] documented in this encounter Plan of Treatment Upcoming Encounters Date Type Specialty Care Team Description 04/04/2022 Office Visit Dermatology Celena Salazar MD [facility] DR [address] [place] [address] (Wo rk) Scheduled Referrals Name Type Priority Associated Diagnoses Order S chedule Referral to Weight Outpatient Referral Routine Morbid obesity Ordered: [facility] 08/12/2018 documented as of this encounter Procedures Procedure Name Priority Date/Time Associated Diagnosis Comme nts ORDS - PROVIDER 09/30/2018 12:00 AM Resul ts for this CARE SCAN EDT procedure are i n the results section. documented in this encounter Results SCAN DOC: ORDS - PROVIDER CARE (09/30/2018 12:00 AM EDT) Narrative 09/30/2018 12:00 AM EDT This result has an attachment that is no t available. Ordered by an unspecified provider. Scanning Provider MEDIA MGR SCAN EXT ORDR/RSLT documented in this encounter Visit Diagnoses Diagnosis Morbid obesity documented in this encounter Care Teams Associate Director Financial Aid Relationship Specialty Start Date End Date Amanda Barnett DO PCP - General Family Medicine 06/19/[address] [place] [address] documented as of this encounter
--- OUTSIDE RECORDS SUMMARY | 2022-02-02 00:30 | XMS_ITS | Encounter Summary ---
:1950 Author Organization [facility] [place] [address] Care Team Providers Name Role Phone Amanda Barnett DO Primary Care Provider Encounter Details Date Type Department Care Team Description 03/17/2018 Telephone [place]rology [place] [facility] [place] [address] Social History Tobacco Use Types Packs/Day Years Used Date Former Smoker Cigarettes Quit: 04/04/19 99 Smokeless Tobacco: Never Used Alcohol Use Standard Drinks/Week Comments No 0 (1 standard drink = 0.6 oz pure alcoho l) Sex Assigned at Date Recorded Not on file documented as of this encounter Miscellaneous Notes Telephone Encounter - Tameka Levy - 03/17/2018 8:39 AM EST Patient called for a refill. Sent the request to the nurse. She is due for a follow up appointment but there are no openings at this time. documented in this encounter Plan of Treatment Upcoming Encounters Date Type Specialty Care Team Description 04/04/2022 Office Visit Dermatology Celena Salazar MD [facility] ER DR THERESE LEOS[address]DERMAT [place], [place] [address] (Wo rk) documented as of this encounter Visit Diagnoses Not on filedocumented in this encounter Care Teams Floor Framer Relationship Specialty Start Date End Date Amanda Barnett DO PCP - General Family Medicine 06/19/[address] [place] [address] documented as of this encounter
--- OUTSIDE RECORDS SUMMARY | 2022-02-02 00:30 | XMS_ITS | Encounter Summary ---
:1950 Author Organization [facility] [place] [address] Care Team Providers Name Role Phone Amanda Barnett DO Primary Care Provider Encounter Details Date Type Department Care Team Description 05/15/2019 Telephone Endocrinology at [facility] [place] [address] Social History Tobacco Use Types Packs/Day Years Used Date Former Smoker Cigarettes Quit: 04/04/19 99 Smokeless Tobacco: Never Used Alcohol Use Standard Drinks/Week Comments No 0 (1 standard drink = 0.6 oz pure alcoho l) Sex Assigned at Date Recorded Not on file documented as of this encounter Miscellaneous Notes Telephone Encounter - Nini Tello - 05/15/2019 2:30 PM EST Left message and sent letter to clifford tabares documented in this encounter Plan of Treatment Upcoming Encounters Date Type Specialty Care Team Description 04/04/2022 Office Visit Dermatology Celena Salazar MD [facility] ER DR THERESE LE[address]MAT [place], [place] [address] (Wo rk) documented as of this encounter Visit Diagnoses Not on filedocumented in this encounter Care Teams Fifth Grade Teacher Relationship Specialty Start Date End Date Amanda Barnett DO PCP - General Family Medicine 06/19/[address] [place] [address] documented as of this encounter
--- OUTSIDE RECORDS SUMMARY | 2022-02-02 00:30 | XMS_ITS | Encounter Summary ---
:1950 Author Organization [facility] [address] Care Team Providers Name Role Phone Amanda Barnett DO Primary Care Provider Reason for Referral Diagnostic Test (Routine) - Closed Specialty Diagnoses / Procedures Referred By Contact Refer red To Contact Radiology Diagnoses Squamous cell carcinoma of left lung Delbert Greenberg MD [facility] Rad Ct Scan Procedures CT Chest wo Contrast (Generic) [facility] CENTER DR [facility] MEDICAL ONCOLOGY [place], [place] [id number] [place] [phone] Referral ID Status Reason Start Date Expiration Date Visits V isits Requested Authorized [id number] Closed Specialty 09/26/2017 09/26/2018 1 1 Service Requested Reason for Visit Diagnostic Test (Routine) - Closed Specialty Diagnoses / Procedures Referred By Contact Refer red To Contact Radiology Diagnoses Squamous cell carcinoma of left lung Delbert Greenberg MD [facility] Rad Ct Scan Procedures CT Chest wo Contrast (Generic) [facility] DR [facility] ONCOLOGY [address] [address] Referral ID Status Reason Start Date Expiration Date Visits V isits Requested Authorized [id number] Closed Specialty 09/26/2017 09/26/2018 1 1 Service Requested Encounter Details Date Type Department Care Team Description 12/31/[address] Scan at [facility] Dragnev, Squamous cell [facility] Delbert Ramírez MD carcinoma of left Drive [facility] [place] [address] MEDICAL ONCOLOGY [phone] [place], [place] [address] Social History Tobacco Use Types [...] needed. Reported on 09/25/2016 OXYGEN-AIR DELIVERY by [facility].(Non-Drug; 0 SYSTEMS (WALKABOUT 2 Combo Route) route OXYGEN SYSTEM [facility]) as needed. atorvastatin (LIPITOR) 40 Take 40 [...] 04/04/2022 Office Visit Dermatology Celena Salazar MD [facility] [address]ESE LE[address]DER[address] [place], [place] [address] (Wo rk) documented as of this encounter Procedures Procedure Name Priority Date/Time Associated Diagnosis Comme nts CT CHEST WO Routine 12/31/2017 2:51 PM Squamous cell Results for this CONTRAST (GENERIC) EDT carcinoma of left proc edure are in lung the results section. documented in this encounter Results CT Chest wo Contrast (Generic) (12/31/2017 2:51 PM EDT) Anatomical Region Laterality Modality Chest Computed Tomography Specimen (Source) Anatomical Location Collection Method / Collectio n Time Received Time / Laterality Volume Impressions 12/31/2017 3:14 PM EDT Small area of groundglass opacity seen at the right lung base on 09/24/2017 resolved likely represented focal inflam matory/infectious change. No new findings. Narrative 12/31/2017 3:14 PM EDT EXAMINATION: CT CHEST WO CONTRAST (GENERIC) CLINICAL HISTORY: Low dose imaging limit ed to the lung bases for history of lung cancer, status post resection, chemother apy, and radiation, groundglass opacities found on recent scan, rule out recurrence or a new primary tumor TECHNIQUE: 2.5 mm thick axial contiguous sections were obtained through the chest from the partha to the diaphragm v ia helical acquisition without intravenous contrast administration usin g low radiation dose technique. Thin-section reconstructions as well as coronal and sagittal reformatted images were generated. COMPARISON: 09/24/2017. FINDINGS: Pulmonary parenchyma: Small area of grou ndglass opacity in the anterolateral right lower lobe seen on the prior exami nation is no longer visualized on today's study, was likely a small inflam matory/infectious focus. No new findings in the imaged portion of the right lung. Stable post pneumonectomy appearance of the imaged portion of the left hemithora x. Airways: No new endobronchial opacities. Pleura: No pleural effusion on the right . Lymph nodes:Within limits of noncontrast technique, no adenopathy within the imaged portion of the chest. Heart, pericardium, and great vessels: N o new findings. Other mediastinal structures: No new fin dings. Upper abdomen: No new findings. Skeletal structures: No new findings. Procedure Note Verena Albright MD - 12/31/2017Formatt ing of this note might be different from the original. EXAMINATION: CT CHEST WO CONTRAST (GENER IC) CLINICAL HISTORY: Low dose imaging limit ed to the lung bases for history of lung cancer, status post resection, chemother apy, and radiation, groundglass opacities found on recent scan, rule out recurrence or a new primary tumor TECHNIQUE: 2.5 mm thick axial contiguous sections were obtained through the chest from the partha to the diaphragm v ia helical acquisition without intravenous contrast administration usin g low radiation dose technique. Thin-section reconstructions as well as coronal and sagittal reformatted images were generated. COMPARISON: 09/24/2017. FINDINGS: Pulmonary parenchyma: Small area of grou ndglass opacity in the anterolateral right lower lobe seen on the prior exami [place] is no longer visualized on today's study, was likely a small inflam matory/infectious focus. No new findings in the imaged portion of the right lung. Stable post pneumonectomy appearance of the imaged portion of the left hemithora x. Airways: No new endobronchial opacities. Pleura: No pleural effusion on the right . Lymph nodes:Within limits of noncontrast technique, no adenopathy within the imaged portion of the chest. Heart, pericardium, and great vessels: N o new findings. Other mediastinal structures: No new fin dings. Upper abdomen: No new findings. Skeletal structures: No new findings. IMPRESSION Small area of groundglass opacity seen a t the right lung base on 09/24/2017 resolved likely represented focal inflam matory/infectious change. No new findings. Delbert Greenberg MD IMG CT ORDERABLES documented in this encounter Visit Diagnoses Diagnosis Squamous cell carcinoma of left lung documented in this encounter Care Teams Wallpaper Consultant Relationship Specialty Start Date End Date Amanda Barnett DO PCP - General Family Medicine 06/19/[address] [place] [id number] documented as of this encounter
--- OUTSIDE RECORDS SUMMARY | 2022-02-02 00:30 | XMS_ITS | Encounter Summary ---
:1950 Author Organization [facility] [place] [address] Care Team Providers Name Role Phone Amanda Barnett DO Primary Care Provider Reason for Visit Reason Comments Follow-up Encounter Details Date Type Department Care Team Description 05/19/2019 Office Visit Hematology and Hannah Greenberg MD [facility] [place] [address] Squamous cell Oncology at [facility] Jaqueline Whitman APRN [facility] [address] HEMATOLOGY-[place] [address] carcinoma of left [facility] [place] [address] Social History Tobacco Use Types Packs/Day Years Used Date Former Smoker Cigarettes Quit: 04/04/19 99 Smokeless Tobacco: Never Used Alcohol Use Standard Drinks/Week Comments No 0 (1 standard drink = 0.6 oz pure alcoho l) Sex Assigned at Date Recorded Not on file documented as of this encounter Last Filed Vital Signs Vital Sign Reading Time Taken Comments Blood Pressure 117/54 05/19/2019 1:15 PM EST Pulse 90 05/19/2019 1:15 PM EST Temperature 37.3 ??C (99.1 ??F) 05/19/2019 1:15 PM EST Respiratory Rate 20 05/19/2019 1:15 PM EST Oxygen Saturation 98% 05/19/2019 1:15 PM EST Inhaled Oxygen Concentration - - Weight 128.8 kg (284 lb) 05/19/2019 1:15 PM EST Height 164 cm (5' 4.57) 05/19/2019 1:15 PM EST Body Mass Index 47.9 05/19/2019 1:15 PM EST documented in this encounter Progress Notes Jaqueline Whitman, MOTORCYCLE POLICE OFFICER - 05/19/2019 1:15 PM EST Subjective: Patient ID: Pennie Rodriguez is a 68 y.o. female with resected (left pneumonectomy) stage IIIA ([id number]) non-small cell lung cancer in March 2004. She received adjuvant chemotherapy followed by post-operative RT. Returning for follow-up. HPI Last seen 12/31/2017. Comes today with a chest CT and for re-evaluation. Overall feeling stable sincethe last visit. She was treated for bronchitis in March, followed by a GI illness. She has recovered. Energy level is slightly improved which she attributes to increased physical activity. Doing PT and home exercises for R hip and knee. Eating fine, staying hydrated. Weight fluctuates but is increasing over recent months. Breathing is stable. No SOB at rest. There is dyspnea with exertion (takes a break after 8-10 stairs). No cough or hemoptysis. No chest pain. No fevers/chills, HAs, change in vision, difficulty swallowing, N/V, abd pain, change in bowels, dysuria, lightheadedness or dizziness, change in balance, falls, new weakness, change in sensation, bleeding, rash, new or worsening pain. + heartburn managed with pepcid and PRN tums. Review of Systems See HPI. ROS otherwise unremarkable. MEDICATIONS AND ALLERGIES: Please see this patient's medications and allergies from today, 05/19/2019. I personally reviewed this patient's medications and allergies. Current Outpatient Medications on File Prior to Visit Medication Sig Dispense Refill ??? ranitidine (ZANTAC) 150 mg Capsule Take 150 mg by mouth 2 times daily. ??? glimepiride (AMARYL) 1 mg Tablet Take 1 mg by mouth every morning (before breakfast). ??? hydroCHLOROthiazide (MICROZIDE) 12.5 mg Capsule Take 12.5 mg by mouth daily. ??? insulin degludec (TRESIBA FLEXTOUCH U-100) 100 unit/mL (3 mL) Insulin Pen Inject 34 Units subcutaneously nightly. ??? tiotropium (SPIRIVA WITH HANDIHALER) 18 mcg [...] SYSTEMS (WALKABOUT 2 OXYGEN SYSTEM MISC) [place] [facility]Non- Drug; Combo Route) route as needed. ??? Calcium Carbonate-Vitamin D3 (CALCIUM 500 + D) 500 mg(1,250mg) -400 unit Chew Take by mouth daily. ??? atorvastatin (LIPITOR) 40 mg tablet Take 40 mg by mouth daily. ??? fluticasone-salmeterol (ADVAIR) 100-50 mcg/dose diskus inhaler Inhale 1 puff into the lungs every 12 hours. ??? cyanocobalamin, vitamin B-12, 250 mcg tablet Take 1,000 mcg by mouth daily. ??? aspirin 81 mg EC tablet Take 81 mg by mouth daily. ??? alogliptin 12.5 mg Tablet Take 1 tablet by mouth daily. (Patient not taking: Reported on 05/19/2019) 90 tablet 3 ??? fluorouracil (EFUDEX) 5 % Cream Apply a thin layer to affected areas on the right cheek and nosetwice daily (morning and night) as tolerated for 3 weeks (Patient not taking: Reported on 11/25/2018) 40 g 0 ??? acetaminophen (TYLENOL) 500 mg Tablet Take 1,000 mg by mouth every 6 hours as needed for Pain. ??? pramoxine (PROCTOFOAM) 1 % foam (Patient not taking: Reported on 05/19/2019) No current facility-administered medications on file prior to visit. Allergies Allergen Reactions ??? Byetta [Exenatide] STOMACH CRAMPS ??? Metformin Diarrhea ??? Morphine Sulfate Nausea And Vomiting Physical Exam: Vitals: 05/19/19 1315 BP: 117/54 Patient Position: Sitting Pulse: 90 Resp: 20 Temp: 37.3 ??C (99.1 ??F) TempSrc: Temporal SpO2: 98% Weight: 128.8 kg (284 lb) Height: 164 cm (5' 4.57) Wt Readings from Last 3 Encounters: 05/19/19 128.8 kg (284 lb) 11/25/18 125.7 kg (277 lb 1.6 oz) 08/12/18 122.4 kg (269 lb 12.8 oz) Objective: Physical Exam Constitutional: [...] to palpation. Musculoskeletal: Normal range of motion. Trace around the ankles bilaterally. Neurological: She is alert and oriented to person, place, and time. Cranial nerves grossly intact. Skin: Skin is warm and dry. No rash noted. LABORATORY EVALUATION: Recent Results (from the past 72 hour(s)) Comprehensive metabolic panel (non-fasting) Result Value Ref Range Glucose Lvl 132 65 - 199 mg/dL BUN 27 (H) 8 - 18 mg/dL Creatinine 1.36 (H) 0.70 - 1.20 mg/dL Sodium 143 135 - 145 mmol/L Potassium 4.6 3.5 - 5.0 mmol/L Chloride 105 98 - 107 mmol/L CO2 26 22 - 31 mmol/L Anion Gap 12 5 - 15 mmol/L Calcium 9.2 8.5 - 10.5 mg/dL Total Protein 6.9 6.1 - 8.0 gm/dL Albumin 3.8 3.2 - 5.2 gm/dL AST 12 0 - 30 unit/L ALT 11 0 - 30 unit/L Alk Phos 102 35 - 105 unit/L Total Bilirubin 0.2 0.2 - 1.3 mg/dL eGFR 39 (L) >=60 mL/min/1.73 m?? eGFR 46 (L) >=60 mL/min/1.73 m?? Lactate Dehydrogenase Result Value Ref Range LDH 181 110 - 220 unit/L Phosphorus Result Value Ref Range Phosphorus 3.8 2.5 - 4.5 mg/dL PTH Result Value Ref Range PTH 79 (H) 15 - 65 pg/mL Hemogram Result Value Ref Range WBC 8.9 4.0 - 9.5 x10(3)/mcL RBC 3.94 (L) 4.00 - 5.21 x10(6)/mcL Hemoglobin 11.5 (L) 11.7 - 15.5 gm/dL Hematocrit 37.4 35.7 - 45.8 % MCV 94.9 (H) 82.6 - 94.4 fL MCH 29.2 27.1 - 32.0 pg MCHC 30.7 (L) 31.7 - 35.0 gm/dL Platelets 226 145 - 357 x10(3)/mcL RDWSD 50.3 (H) 37.0 - 46.0 fL RDWCV 14.4 (H) 11.5 - 14.1 % MPV 11.0 7.6 - 12.9 fL nRBC % Auto 0.0 % nRBC Abs Auto 0.000 0.000 - 0.000 x10(3)/mcL Differential, Automated Result Value Ref Range Neutrophils % 76.1 % Neutr Abs (ANC) 6.78 (H) 1.70 - 6.10 x10(3)/mcL Lymphocytes % 14.1 % Lymphocytes Abs 1.3 0.9 - 3.2 x10(3)/mcL Monocytes % 7.6 % Monocyte Abs 0.7 0.3 - 0.9 x10(3)/mcL Eosinophils % 0.9 % Eosinophils Abs 0.1 0.0 - 0.4 x10(3)/mcL Basophils % 0.7 % Basophils Abs 0.1 0.0 - 0.1 x10(3)/mcL Immature Gran % 0.60 % Shanae Gran Abs 0.05 (H) 0.00 - 0.04 x10(3)/mcL Chest CT from today was personally reviewed with no evidence of disease recurrence or new primary IMPRESSION: No evidence of local recurrence or metastatic disease. Assessment and Plan: A 68 y.o. patient with resected stage IIIA ([id number]) non-small cell lung cancer in 2004 status post adjuvant chemotherapy and sequential postoperative radiation therapy following her left pneumonectomy. There is no radiographic evidence of recurrent disease on today's imaging. I counseled the patient about these results, their implications for the prognosis, as well as the available treatment options. The patient understands that despite completing all therapy, the risks for recurrence remain. Whilethe risks decrease with time, they do not disappear and the patient will also remain at risk for a new primary cancer of the aerodigestive tract. Continued regular surveillance is recommended. I strongly advised not to restart smoking as ongoing smoking significantly increases the risks for second primary cancer, as well as cardiovascular and pulmonary complications, among others. I counseled her on the importance of regular health maintenance and I encouraged her to continue with her follow-up by her primary care physician. She is followed by nephrology for her elevated creatinine, and endocrine for management of diabetes. RTC in 14 mo (to avoid winter) with labs, chest CT wo contrast, clinic visit. I advised to call if there are any fever, shortness of breath, new pain, weakness, bleeding or any other unusual medical symptoms. The patient will come back in 14 months (to avoid an appointment in the winter) for reevaluation. documented in this encounter Plan of Treatment Upcoming Encounters Date Type Specialty Care Team Description 04/04/2022 Office Visit Dermatology Celena Salazar MD [facility] [address] [place], [place] [address] (Wo rk) documented as of this encounter Visit Diagnoses Diagnosis Squamous cell carcinoma of left lung documented in this encounter Care Teams Sanitation Engineer Relationship Specialty Start Date End Date Amanda Barnett DO PCP - General Family Medicine 06/19/[address] [place] [address] documented as of this encounter
--- OUTSIDE RECORDS SUMMARY | 2022-02-02 00:30 | XMS_ITS | Encounter Summary ---
:1950 Author Organization [facility] [place] [address] Care Team Providers Name Role Phone Amanda Barnett DO Primary Care Provider Reason for Visit Reason Comments Medication Refill Encounter Details Date Type Department Care Team Description 01/27/2019 Refill Endocrinology at [facility] Pratik Odell MD [facility] [place] [address] ENDOCRINOLOGY DEPT. [phone] [place], [place] [address] (Wo rk) Social History Tobacco [...] Dermatology Celena Salazar MD [facility] ER [address], [place] [address] (Wo rk) documented as of this encounter Visit Diagnoses Not on filedocumented in this encounter Care Teams Lay Out Inspector Relationship Specialty Start Date End Date Amanda Barnett DO PCP - General Family Medicine 06/19/[address] [place], [place] [address] documented as of this encounter
--- OUTSIDE RECORDS SUMMARY | 2022-02-02 00:30 | XMS_ITS | Encounter Summary ---
:1950 Author Organization [facility] [place] [address] Care Team Providers Name Role Phone GegeAmanda coombs Alba LAURENT Primary Care Provider Encounter Details Date Type Department Care Team Description 05/01/2019 Telephone Endocrinology at [facility] [place] [address] Social History Tobacco Use Types Packs/Day Years Used Date Former Smoker Cigarettes Quit: 04/04/19 99 Smokeless Tobacco: Never Used Alcohol Use Standard Drinks/Week Comments No 0 (1 standard drink = 0.6 oz pure alcoho l) Sex Assigned at Date Recorded Not on file documented as of this encounter Miscellaneous Notes Telephone Encounter - Arun Garcia RN - 05/01/2019 2:06 PM EST I sent a note about this to Dr Gupta yesterday. Awaiting response. Telephone Encounter - Ken Schroeder - 05/01/2019 1:58 PM EST Caller and relationship to patient (if other than patient): Pennie Rodriguez Best time to reach caller: anytime Message or Reason for Call: Pennie Rodriguez insurance wants her to try a different before they will cover her script for TRADJENTA 5 mg Tablet Appt Needed and Reason: ? Provider: Alonso documented in this encounter Plan of Treatment Upcoming Encounters Date Type Specialty Care Team Description 04/04/2022 Office Visit Dermatology Celena Salazar MD [facility] ER [address] [place], [place] [address] (Wo rk) documented as of this encounter Visit Diagnoses Not on filedocumented in this encounter Care Teams Carton Making Machinist Relationship Specialty Start Date End Date Amanda Barnett DO PCP - General Family Medicine 06/19/[address] [place] [address] documented as of this encounter
--- OUTSIDE RECORDS SUMMARY | 2022-02-02 00:30 | XMS_ITS | Encounter Summary ---
:1950 Author Organization [facility] [place] [address] Care Team Providers Name Role Phone Amanda Barnett DO Primary Care Provider Encounter Details Date Type Department Care Team Description 11/25/2018 Laboratory Appointment Lab 3L [facility] 2 diabetes [facility] mellitus with stage 3 [facility] chronic k [facility] disease, with [place], [place] long-term curre nt use [id number] of insulin [phone] Social History Tobacco Use Types Packs/Day Years [...] 04/04/2022 Office Visit Dermatology Celena Salazar MD [facility] ER [address], [place] [address] (Wo rk) documented as of this encounter Procedures Procedure Name Priority Date/Time Associated Comments Diagnosis HEMOGLOBIN A1C Routine 11/25/2018 12:41 PM Type 2 diabetes Res ults for this EDT mellitus with stage procedur e are in 3 chronic kidney the results disease, with section. long-term current use of insulin BASIC METABOLIC Routine 11/25/2018 12:41 PM Type 2 diabetes Re sults for this PANEL (NON-FASTING) EDT mellitus with stage p rocedure are in 3 chronic kidney the results disease, with section. long-term current use of insulin documented in this encounter Results (ABNORMAL) Basic Metabolic Panel (non-fasting) (11/25/2018 12:41 PM EDT) athologist Signature Glucose Lvl 110 65 - 199 [facility] mg/dL [facility] Comment: Diabetes: >=200 mg/dL plus symp toms BUN 35 (H) 8 - 18 mg/dL [facility] Creatinine 1.16 0.70 - 1.20 mg/dL [facility] Sodium 140 135 - 145 mmol/L [facility] Potassium 4.8 3.5 - 5.0 mmol/L [facility] Comment: Please note: ??Patients with WBC >100,00 0 may have falsely elevated Potassium levels. ??For accurate Potassium quantif ication in these patients send serum separator tube (gold top) for subsequent determinations. ??Contact the Clinical Chemistry Laboratory if there are any qu estions. Chloride 104 98 - 107 mmol/L [facility] CO2 26 22 - 31 mmol/L [facility] Anion Gap 10 5 - 15 mmol/L [facility] Calcium 9.6 8.5 - 10.5 mg/dL [facility] Estimated GFR 48 (L) >=60 mL/min/1.73 m?? [facility] Comment: The eGFR was calculated using the CKD-EP I equation. As with all creatinine based estimates of kidney function, eGFR values calculated with the CKD-EPI equation are not accurate in patients wi th acute kidney failure, extremes of body mass or the acutely ill. http://[employer]/[facility] – OKLAHOMA CITYnkf eGFR 55 (L) >=60 mL/min/1.73 m?? [facility] Comment: The eGFR was calculated using the CKD-EP I equation. As with all creatinine based estimates of kidney function, eGFR values calculated with the CKD-EPI equation are not accurate in patients wi th acute kidney failure, extremes of body mass or the acutely ill. http://[employer]/[facility] – OK[place] CITYnkf Specimen Anatomical Collection Method Collection Time Receive d Time (Source) Location / / Volume Laterality Blood specimen 11/25/2018 12:41 9 (specimen) PM EDT 12:47 PM EDT Resulting Agency Comment Spec In Lab Diane Serra DARCI CHEMISTRY ORDERABLES Performing Organization Address City/State/ZIP Code Phon e Number [place] [id number] (ABNORMAL) Hemoglobin A1c (11/25/2018 12:41 PM EDT) Analysis Performed At Patho logist Time Signature Hemoglobin A1C 7.1 (H) 4.3 - 5.6 [facility] Comment: Reference Range: 4.3 - 5.6% [...] Mellitus, Diabetes Care 2013; 36: Suppl. 1, S67-77 Est Avg Gluc See note mg/dL [facility] Comment: Estimated Average Glucose not appropriat e for patients over 70 years of age. eAG equivalents for HbA1c percentages: HbA1c(%) ?eAG(mg/dL) 6.0 ?126 6.5 ?140 7.0 ?154 7.5 ?169 8.0 ?183 8.5 ?197 9.0 ?212 9.5 ?226 10.0 ? 240 Limitations: The eAG calculation has not been validated on women, individuals below 18 years old and above 70 years old, and individuals with hemoglobinopathies. Additional resources are available on [facility] website. Chevy PARTIDA, Jr J, Syed R, et al. ??Tr anslating the A1C assay into estimated average glucose values. ??Diabetes Care 2008:31(8):3539-7495. 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
--- OUTSIDE RECORDS SUMMARY | 2022-02-02 00:30 | XMS_ITS | Encounter Summary ---
:1950 Author Organization [facility] [place] [address] Care Team Providers Name Role Phone Anibal Amanda Alba LAURENT Primary Care Provider Encounter Details Date Type Department Care Team Description 02/13/2018 Laboratory Appointment Lab 3L [facility] 2 diabetes [facility] mellitus with [facility] unspecified whether [place], [place] securities dealer insul [place] use [phone] Social History Tobacco Use Types Packs/Day Years [...] 04/04/2022 Office Visit Dermatology Celena Salazar MD [facility] ER [address] [place], [place] [address] (Wo rk) documented as of this encounter Procedures Procedure Name Priority Date/Time Associated Diagnosis Comme nts LDL CHOLESTEROL, Routine 02/13/2018 10:06 Type 2 diabetes Resu lts for this DIRECT AM EDT mellitus with procedure are in complication, the results unspecified whether section. skilled nursing insulin use HEMOGLOBIN A1C Routine 02/13/2018 10:06 Type 2 diabetes Result s for this AM EDT mellitus with procedure are in complication, the results unspecified whether section. skilled nursing insulin use BASIC METABOLIC Routine 02/13/2018 10:06 Results for this PANEL (NON-FASTING) AM EDT procedur e are in the results section. documented in this encounter Results (ABNORMAL) Basic Metabolic Panel (non-fasting) (02/13/2018 10:06 AM EDT) P athologist Signature Glucose Lvl 109 65 - 199 [facility] mg/dL [facility] Comment: Diabetes: >=200 mg/dL plus symp toms BUN 40 (H) 8 - 18 mg/dL [facility] Creatinine 1.40 (H) 0.70 - 1.20 mg/dL [facility] Sodium 141 135 - 145 mmol/L [facility] Potassium 4.8 3.5 - 5.0 mmol/L [facility] Comment: Please note: ??Patients with WBC >100,00 0 may have falsely elevated Potassium levels. ??For accurate Potassium quantif ication in these patients send serum separator tube (gold top) for subsequent determinations. ??Contact the Clinical Chemistry Laboratory if there are any qu estions. Chloride 103 98 - 107 mmol/L [facility] CO2 Not Perf 22 - 31 [facility] Comment: Add-on request. Sample too old to perform test. Anion Gap Unable to Calculate 5 - 15 mmol/L [facility] Calcium 10.2 8.5 - 10.5 mg/dL [facility] Estimated GFR 38 (L) >=60 mL/min/1.73 m?? [facility] Comment: The eGFR was calculated using the CKD-EP I equation. As with all creatinine based estimates of kidney function, eGFR values calculated with the CKD-EPI equation are not accurate in patients wi th acute kidney failure, extremes of body mass or the acutely ill. http://[employer]/DHMCnkf eGFR 44 (L) >=60 mL/min/1.73 m?? [facility] Comment: The eGFR was calculated using the CKD-EP I equation. As with all creatinine based estimates of kidney function, eGFR values calculated with the CKD-EPI equation are not accurate in patients wi th acute kidney failure, extremes of body mass or the acutely ill. http://[employer]/DHMCnkf Specimen Anatomical Collection Method Collection Time Receive d Time (Source) Location / / Volume Laterality Blood specimen Venous Draw / 02/13/2018 10:06 02/14/20 18 (specimen) Unknown AM EDT 10:28 AM EDT Resulting Agency Comment Spec In Lab Gage Gupta MD CHEMISTRY ORDERABLES Performing Organization Address City/State/[place] [address] (ABNORMAL) Hemoglobin A1c (02/13/2018 10:06 AM EDT) Analysis Performed At Patho logist Time Signature Hemoglobin A1C 7.1 (H) 4.3 - 5.6 [facility] Comment: Reference Range: 4.3 - [...] Mellitus, Diabetes Care 2013; 36: Suppl. 1, S67-52 Est Avg Gluc 157 mg/dL [facility] Comment: eAG equivalents for HbA1c percentages: HbA1c(%) ?eAG(mg/dL) 6.0 ?126 6.5 ?140 7.0 ?154 7.5 ?169 8.0 ?183 8.5 ?197 9.0 ?212 9.5 ?226 10.0 ? 240 Limitations: The eAG calculation has not been validated on women, individuals below 18 years old and above 70 years old, and individuals with hemoglobinopathies. Additional resources are available on [facility] ADA website. Chevy PARTIDA, Jr J, Syed R, et al. ??Tr anslating the A1C assay into estimated average glucose values. ??Diabetes Care 2008:31(8):2692-3843. Specimen Anatomical Collection Method Collection Time Receive d Time (Source) Location / / Volume Laterality Blood specimen 02/13/2018 10:06 8 (specimen) AM EDT 10:18 AM EDT Resulting Agency Comment Spec In Lab Gage Gupta MD CHEMISTRY ORDERABLES Performing Organization Address City/[facility]/ZIP [place] [address] LDL Cholesterol, Direct (02/13/2018 10:06 AM EDT) P athologist Signature LDL Chol 80 mg/dL [facility] Comment: Lowest Risk: <100 mg/dL Lower Risk: 100-129 mg/dL Borderline High Risk: 130-159 mg/dL High Risk: 160-189 mg/dL Very High Risk: >uo=186 mg/dL Specimen Anatomical Collection Method Collection Time Receive d Time (Source) Location / / Volume Laterality Blood specimen 02/13/2018 10:06 8 (specimen) AM EDT 10:18 AM EDT Resulting Agency Comment Spec In Lab Gage Gupta MD CHEMISTRY ORDERABLES Performing Organization Address City/[facility] [place] [address] documented in this encounter Visit Diagnoses Diagnosis Type 2 diabetes mellitus with complicati on, unspecified whether skilled nursing insulin use documented in this encounter Care Teams Rv Repair Technician Relationship Specialty Start Date End Date Amanda Barnett DO PCP - General Family Medicine 06/19/[address] [place] [address] documented as of this encounter
--- OUTSIDE RECORDS SUMMARY | 2022-02-02 00:30 | XMS_ITS | Encounter Summary ---
:1950 Author Organization [facility] [place] [address] Care Team Providers Name Role Phone Amanda Barnett DO Primary Care Provider Reason for Visit Reason Onset Date Comments Medication Refill 06/04/2019 Encounter Details Date Type Department Care Team Description 06/04/2019 Refill Endocrinology at [facility] Anna [place], [place] [address] Social History Tobacco Use Types Packs/Day Years [...] 04/04/2022 Office Visit Dermatology Celena Salazar MD [facility] ER [address] [place], [place] [address] (Wo rk) documented as of this encounter Visit Diagnoses Not on filedocumented in this encounter Care Teams Graduate Student Relationship Specialty Start Date End Date Amanda Barnett DO PCP - General Family Medicine 06/19/17 [facility] [place] [address] [place] [address] documented as of this encounter
--- OUTSIDE RECORDS SUMMARY | 2022-02-02 00:30 | XMS_ITS | Encounter Summary ---
:1950 Author Organization [facility] [place] [address] Care Team Providers Name Role Phone Anibal Amandadarleen Willis DO Primary Care Provider Reason for Referral Diagnostic Test (Routine) - Closed Specialty Diagnoses / Procedures Referred By Contact Refer red To Contact Radiology Diagnoses Squamous cell carcinoma of left lung Delbert Greenberg [facility] Scan Procedures CT Chest wo Contrast (Generic) [facility] [place] [address] [place] [address] Referral ID Status Reason Start Date Expiration Date Visits V isits Requested Authorized [id number] Closed Specialty 09/26/2017 09/26/2018 1 1 Service Requested Reason for Visit Reason Comments Follow-up Lung Cancer Encounter Details Date Type Department Care Team Description 09/24/2017 Office Visit Hematology and Hannah Greenberg MD [facility] [place] [address] Squamous cell Oncology at [facility] Jaqueline Whitman APRN [facility] HEMATOLOGY[place] [address] carcinoma of left [facility] [place] [address] Social History Tobacco Use Types Packs/Day Years Used Date Former Smoker Cigarettes Quit: 04/04/19 99 Smokeless Tobacco: Never Used Alcohol Use Standard Drinks/Week Comments No 0 (1 standard drink = 0.6 oz pure alcoho l) Sex Assigned at Date Recorded Not on file documented as of this encounter Last Filed Vital Signs Vital Sign Reading Time Taken Comments Blood Pressure 115/69 09/24/2017 3:57 PM EDT Pulse 88 09/24/2017 3:57 PM EDT Temperature 36 ??C (96.8 ??F) 09/24/2017 3:57 PM EDT Respiratory Rate 18 09/24/2017 3:57 PM EDT Oxygen Saturation 98% 09/24/2017 3:57 PM EDT Inhaled Oxygen Concentration - - Weight 123.3 kg (271 lb 12.8 oz) 09/24/2017 3:57 PM EDT Height 167.6 cm (5' 6) 09/24/2017 3:57 PM EDT Body Mass Index 43.87 09/24/2017 3:57 PM EDT documented in this encounter Progress Notes Delbert Greenberg MD - 09/24/2017 4:15 PM EDT Subjective: Patient ID: Pennie Rodriguez is a 66 y.o. female with resected (left pneumonectomy) stage IIIA ([id number]) non-small cell lung cancer in March 2004. She received adjuvant chemotherapy followed by post-operative RT. Returning for follow-up. HPI Overall the patient feels about the same to a little better, when compared to 1 year ago. She reports that her energy has remained stable. Her breathing is comfortable, no dyspnea at rest. She still has exertional dyspnea that has gotten a little better after she was able to lose weight over the past 6 months. She has occasional cough without hemoptysis. The patient uses oxygen with activity, this isunchanged. Her appetite is good, no difficulty swallowing, no nausea. She is following a diabetic diet and has been able to lose weight over the past 6-10 months. The patient is being followed by a seat scooper machine for elevated creatinine. With her weight loss there has been a trend towards decrease in creatinine. No fevers/chills, headaches, diplopia or visual defects, difficulty swallowing, heartburn, N/V, abd pain, diarrhea or constipation, urinary complaints, lightheadedness, falls, focal weakness, bleeding, rash, neck/back/new pain (has longstanding arthritis pain which is unchanged). There is intermittent numbness in the feet, not significantly changed from last year. Review of Systems See HPI. ROS otherwise unremarkable. MEDICATIONS AND ALLERGIES: Please see this patient's medications and allergies from today, 09/26/2017.I personally reviewed this patient's medications and allergies. Current Outpatient Prescriptions on File Prior to Visit Medication Sig Dispense Refill ??? cimetidine (TAGAMET) 400 mg Tablet Take [...] times daily (before meals). 180 tablet3 ??? lisinopril (PRINIVIL;ZESTRIL) 30 mg Tablet Take 15 mg by mouth daily. ??? SPIRIVA WITH HANDIHALER 18 mcg Capsule, w/Inhalation Device Inhale into the lungs daily. ??? PROAIR HFA 90 mcg/actuation inhaler Inhale 2 puffs into the lungs as needed. Reported on 09/25/2016 ??? OXYGEN-AIR DELIVERY SYSTEMS (WALKABOUT 2 OXYGEN SYSTEM [facility]) by [facility].(Non- Drug; Combo Route) route. ??? Calcium Carbonate-Vitamin [...] Take 81 mg by mouth daily. ??? fluorouracil (EFUDEX) 5 % Cream apply to affected areas mentioned above BID for 2-3 weeks. (Patient not taking: Reported on 09/24/2017) 40 g 0 ??? pramoxine (PROCTOFOAM) 1 % foam (Patient not taking: No sig reported) No current facility-administered medications on file prior to visit. Allergies Allergen Reactions ??? Byetta [Exenatide] STOMACH CRAMPS ??? Metformin Diarrhea ??? Morphine Sulfate Nausea And Vomiting Physical Exam: Vitals: 09/24/17 1557 BP: 115/69 Patient Position: Sitting Pulse: 88 Resp: 18 Temp: 36 ??C (96.8 ??F) TempSrc: Temporal SpO2: 98% Weight: 123.3 kg (271 lb 12.8 oz) Height: 167.6 cm (5' 6) Wt Readings from Last 3 Encounters: 09/24/17 123.3 kg (271 lb 12.8 oz) 09/09/17 125.2 kg (276 lb) 08/06/17 128.2 kg (282 lb 9.6 oz) Objective: Physical Exam Constitutional: She is [...] Lactate Dehydrogenase Result Value Ref Range LDH 159 110 - 220 unit/L Comprehensive metabolic panel (non-fasting) Result Value Ref Range Glucose Lvl 140 65 - 199 mg/dL BUN 45 (H) 8 - 18 mg/dL Creatinine 1.47 (H) 0.70 - 1.20 mg/dL Sodium 140 135 - 145 mmol/L Potassium 4.3 3.5 - 5.0 mmol/L Chloride 103 98 - 107 mmol/L CO2 23 22 - 31 mmol/L Anion Gap 14 5 - 15 mmol/L Calcium 9.2 8.5 - 10.5 mg/dL Total Protein 7.3 6.1 - 8.0 gm/dL Albumin 3.8 3.2 - 5.2 gm/dL AST 8 0 - 30 unit/L ALT 11 0 - 30 unit/L Alk Phos 82 40 - 104 unit/L Total Bilirubin 0.2 0.2 - 1.3 mg/dL eGFR 35 (L) >=60 Hemogram Result Value Ref Range WBC 9.0 4.0 - 9.5 x10(3)/mcL RBC 3.65 (L) 4.00 - 5.21 x10(6)/mcL Hemoglobin 10.9 (L) 11.7 - 15.5 gm/dL Hematocrit 34.5 (L) 35.7 - 45.8 % MCV 94.5 (H) 82.6 - 94.4 fL MCH 29.9 27.1 - 32.0 pg MCHC 31.6 (L) 31.7 - 35.0 gm/dL Platelets 302 145 - 357 x10(3)/mcL RDWSD 48.2 (H) 37.0 - 46.0 fL RDWCV 13.9 11.5 - 14.1 % MPV 10.4 7.6 - 12.9 fL nRBC % Auto 0.0 % nRBC Abs Auto 0.000 0.000 - 0.000 x10(3)/mcL Differential, Automated Result Value Ref Range Neutrophils % 75.5 % Neutr Abs (ANC) 6.80 (H) 1.70 - 6.10 x10(3)/mcL Lymphocytes % 16.1 % Lymphocytes Abs 1.4 0.9 - 3.2 x10(3)/mcL Monocytes % 5.6 % Monocyte Abs 0.5 0.3 - 0.9 x10(3)/mcL Eosinophils % 1.6 % Eosinophils Abs 0.1 0.0 - 0.4 x10(3)/mcL Basophils % 0.8 % Basophils Abs 0.1 0.0 - 0.1 x10(3)/mcL Immature Gran % 0.40 % Shanae Gran Abs 0.04 0.00 - 0.04 x10(3)/mcL I personally reviewed the laboratory data showing elevated creatinine, stable to slightly decreased from prior. I personally reviewed a CT scan that showed overall stability and no new lesions, compared to a scanfrom 09/25/16. Assessment and Plan: A 66 y.o. patient with resected stage IIIA ([id number]) non-small cell lung cancer in 2004 status post adjuvant chemotherapy and sequential postoperative radiation therapy following her left pneumonectomy. There is no evidence of recurrent disease on today's imaging. I counseled the patient about these results, their implications for the prognosis, as well as the available treatment options. The patientunderstands that despite completing all therapy, the risks for recurrence remain. While the risks decrease with time, they do not disappear and the patient will also remain at risk for a new primary cancer of the aerodigestive tract. Continued regular surveillance is recommended. I discussed the limited data on the interval between imaging with most practices performing annual examinations. The risksof false positives in false negatives were outlined. I strongly advised not to restart smoking [...] which she is being followed by a seat scooper machine. This condition is unlikely to be related to her cancer or prior treatments, given the time interval, and there is a trend towards improvement. I counseled on weight management and I encouraged her to try to maintain the accomplished weight loss The patient had numerous questions that were answered to her satisfaction. I advised to call if there are any fever, shortness of breath, new pain, weakness, bleeding or any other unusual medical symptoms. The patient will come back in 15 months for reevaluation. Addendum The formal report of her current noncontrast CAT scan described a minimal groundglass opacities for which short-term repeat imaging in 3 months is recommended. We will arrange. documented in this encounter Plan of Treatment Upcoming Encounters Date Type Specialty Care Team Description 04/04/2022 Office Visit Dermatology Celena Salazar MD [facility] [address] [place], [place] [address] (Wo rk) documented as of this encounter [...] findings. Delbert Greenberg MD IMG CT ORDERABLES (ABNORMAL) Comprehensive metabolic panel (non-fasting) (12/31/2017 2:12 PM EDT) athologist Signature Glucose Lvl 114 65 - 199 [facility] mg/dL [facility] Comment: Diabetes: >=200 mg/dL plus symp toms BUN 47 (H) 8 - 18 mg/dL [facility] Creatinine 1.65 (H) 0.70 - 1.20 mg/dL [facility] Sodium 141 135 - 145 mmol/L [facility] Potassium 4.8 3.5 - 5.0 mmol/L [facility] Comment: Please note: ??Patients with WBC >100,00 0 may have falsely elevated Potassium levels. ??For accurate Potassium quantif ication in these patients send serum separator tube (gold top) for subsequent determinations. ??Contact the Clinical Chemistry Laboratory if there are any qu estions. Chloride 104 98 - 107 mmol/L [facility] CO2 27 22 - 31 mmol/L [facility] Anion Gap 10 5 - 15 mmol/L [facility] Calcium 9.2 8.5 - 10.5 mg/dL [facility] Total Protein 6.9 6.1 - 8.0 gm/dL [facility] Albumin 3.9 3.2 - 5.2 gm/dL [facility] AST 10 0 - 30 unit/L [facility] ALT 12 0 - 30 unit/L [facility] Alk Phos 88 40 - 104 unit/L [facility] Total Bilirubin 0.2 0.2 - 1.3 mg/dL [facility] Estimated GFR 31 (L) >=60 mL/min/1.73 m?? [facility] Comment: The eGFR was calculated using the CKD-EP I equation. As with all creatinine based estimates of kidney function, eGFR values calculated with the CKD-EPI equation are not accurate in patients wi th acute kidney failure, extremes of body mass or the acutely ill. http://TestCred/[facility] CITYnkf eGFR 36 (L) >=60 mL/min/1.73 m?? [facility] Comment: The eGFR was calculated using the CKD-EP I equation. As with all creatinine based estimates of kidney function, eGFR values calculated with the CKD-EPI equation are not accurate in patients wi th acute kidney failure, extremes of body mass or the acutely ill. [email or web address]/[facility] CITYnkf Specimen Anatomical Collection Method Collection Time Receive d Time (Source) Location / / Volume Laterality Blood specimen 12/31/2017 2:12 PM 018 2:19 (specimen) EDT PM EDT Resulting Agency Comment Spec In Lab Delbert Greenberg MD CHEMISTRY ORDERABLES Performing Organization Address City/State/ZIP [place] [address] Lactate Dehydrogenase (12/31/2017 2:12 PM EDT) P athologist Signature LDH 174 110 - 220 [facility] unit/L [facility] Specimen Anatomical Collection Method Collection Time Receive d Time (Source) Location / / Volume Laterality Blood specimen 12/31/2017 2:12 PM 018 2:19 (specimen) EDT PM EDT Resulting Agency Comment Spec In Lab Delbert Greenberg MD CHEMISTRY ORDERABLES Performing Organization Address City/[facility]/ZIP [place] [address] documented in this encounter Visit Diagnoses Diagnosis Squamous cell carcinoma of left lung Squamous cell carcinoma of left lung documented in this encounter Care Teams Net Developer With W[employer] Relationship Specialty Start Date End Date Amanda Barnett DO PCP - General Family Medicine 06/19/17 [facility] [place] [address] documented as of this encounter
--- OUTSIDE RECORDS SUMMARY | 2022-02-02 00:30 | XMS_ITS | Encounter Summary ---
:1950 Author Organization [facility] Address [address] [place] [address] Care Team Providers Name Role Phone LiyaAmanda lopez Alba LAURENT Primary Care Provider Encounter Details Date Type Department Care Team Description 11/24/2018 Orders Only Endocrinology at [facility] Diane Lewis, Type 2 diabetes [facility] Martha galan MARBLE SETTER HELPER mellitus with stage 3 [place] [address] [facility] chronic kidney [phone], with ENDOCRINOLOGY long-term curr ent use DEPT. of insulin [place], [place] [address] Social History Tobacco Use Types [...] 04/04/2022 Office Visit Dermatology Celena Salazar MD [facility] ER [address] [place], [place] [address] (Wo rk) documented as of this encounter Results (ABNORMAL) Basic Metabolic Panel (non-fasting) (11/25/2018 12:41 PM EDT) athologist Signature Glucose Lvl 110 65 - [address] [facility] mg/dL [facility] Comment: Diabetes: >=200 mg/dL plus symp toms BUN 35 (H) 8 - 18 mg/dL [facility] Creatinine 1.16 0.70 - 1.20 mg/dL [facility] Sodium 140 135 - 145 mmol/L [facility] Potassium 4.8 3.5 - 5.0 mmol/L [facility] Comment: Please note: ??Patients with WBC >100,00 0 may have falsely elevated Potassium levels. ??For accurate Potassium quantif ication in these patients send serum separator tube (gold top) for subsequent determinations. ??Contact the Clinical Chemistry Laboratory if there are any qu estions. Chloride 104 98 - 107 mmol/L [facility] CO2 26 22 - 31 mmol/L [facility] Anion Gap 10 5 - 15 mmol/L [facility] Calcium 9.6 8.5 - 10.5 mg/dL [facility] Estimated GFR 48 (L) >=60 mL/min/1.73 m?? [facility] Comment: The eGFR was calculated using the CKD-EP I equation. As with all creatinine based estimates of kidney function, eGFR values calculated with the CKD-EPI equation are not accurate in patients wi th acute kidney failure, extremes of body mass or the acutely ill. [email or web address] eGFR 55 (L) >=60 mL/min/1.73 m?? [facility] Comment: The eGFR was calculated using the CKD-EP I equation. As with all creatinine based estimates of kidney function, eGFR values calculated with the CKD-EPI equation are not accurate in patients wi th acute kidney failure, extremes of body mass or the acutely ill. 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
--- OUTSIDE RECORDS SUMMARY | 2022-02-02 00:30 | XMS_ITS | Encounter Summary ---
:1950 Author Organization [facility] Address [address] [place] [address] Care Team Providers Name Role Phone Amanda Barnett DO Primary Care Provider Encounter Details Date Type Department Care Team Description 11/25/2018 Office Visit Endocrinology at [facility] C Diane Serra, Type 2 diabetes [facility] RECREATIONAL RESORT MANAGER mellitus with stage 3 [facility] [place] [address] disease, with [phone] ENDOCRINOLOGY long-term curr ent use DEPT. of insulin [place] [id number] Social History Tobacco Use Types Packs/Day Years Used Date Former Smoker Cigarettes Quit: 04/04/19 99 Smokeless Tobacco: Never Used Alcohol Use Standard Drinks/Week Comments No 0 (1 standard drink = 0.6 oz pure alcoho l) Sex Assigned at Date Recorded Not on file documented as of this encounter Last Filed Vital Signs Vital Sign Reading Time Taken Comments Blood Pressure 125/71 11/25/2018 1:29 PM EDT Pulse 83 11/25/2018 1:29 PM EDT Temperature - - Respiratory Rate - - Oxygen Saturation - - Inhaled Oxygen Concentration - - Weight 125.7 kg (277 lb 1.6 oz) 11/25/2018 1:29 PM EDT Height 165.1 cm (5' 5) 11/25/2018 1:29 PM EDT Body Mass Index 46.11 11/25/2018 1:29 PM EDT documented in this encounter Progress Notes Diane Serra, RECREATIONAL RESORT MANAGER - 11/25/2018 1:30 PM EDT Office visit note for Pennie Rodriguez. Date of visit 11/25/2018 Reason for visit: Follow-up type 2 DM with complication of chronic kidney disease. Also, hypertension in excellent control, hyperlipidemia, morbid obesity Brief history: States she is hopeful that she can start using the [employer] CGMS to help manage glucose levels SBGM: 4 times a day Diabetes regimen: Tresiba 34 units in p.m. Glimepiride 1 mg in a.m. Linagliptin 5 mg daily. Apidra 2units twice a day Complications: Chronic kidney disease Past Medical History: Diagnosis Date ??? Anemia After chemo but this has resolved per pt. ??? Arthritis ??? Asthma ??? COPD (chronic obstructive pulmonary disease) ??? Diabetes mellitus ??? GERD (gastroesophageal reflux disease) ??? Hoarseness Evaluated by Dr Leslie. Attributed to inhalers. ??? Hyperlipidemia ??? Hypertension ??? Lung cancer Tx surgically, XRT and chemotherapy ??? Obesity ??? Stasis dermatitis Left lung surgically removed Review of systems: All 12 systems reviewed and negative except as noted in history Physical exam: Appearance: She is obese with a larger central girth. Weight 277 pounds. She has gained 7 pounds since previous visit to endocrinology. Blood pressure 125/71. Eyes: No retinopathy with greenlight exam. Heart: Regular rate and rhythm. Right lung sounds are clear to auscultation. Feet: Skin skin is normal, pulses are normal. Neuro: Normal sensation to 10 G's of pressure 24-hour meal plan: Breakfast is yogurt and an apple turnover. Lunch was 2 chicken thighs and coleslaw from [employer]. Evening meal was a abrasive grinder on homemade bread. Physical activity is limited because of joint pains and uses oxygen when she has shortness of breath. Hemoglobin A1c 7.1% Impression and plan: DM type 2 with complication of chronic kidney disease. Patient was pleased thatGFR was higher and creatinine was lower. She plans to attempt to eat less bread which helped her be successful with weight loss. Return to office in 6 months with Toma Haimlton NP. Will check hemoglobin A1c. Creatinine. This was a 34-minute office visit with 25 minutes spent counseling [id number] with patient in the management of glucose levels, reviewing target glucose levels of between 90 and 130before meals as much as possible. Gave her a copy of her lab results and reviewed them with her. Shestates her pharmacist will help her learn how to use the [employer]uke CGMS. Recent Results (from the past 72 hour(s)) Hemoglobin A1c Result Value Ref Range Hemoglobin A1C 7.1 (H) 4.3 - 5.6 % Est Avg Gluc See note mg/dL Basic Metabolic Panel (non-fasting) Result Value Ref Range Glucose Lvl 110 65 - 199 mg/dL BUN 35 (H) 8 - 18 mg/dL Creatinine 1.16 0.70 - 1.20 mg/dL Sodium 140 135 - 145 mmol/L Potassium 4.8 3.5 - 5.0 mmol/L Chloride 104 98 - 107 mmol/L CO2 26 22 - 31 mmol/L Anion Gap 10 5 - 15 mmol/L Calcium 9.6 8.5 - 10.5 mg/dL eGFR 48 (L) >=60 mL/min/1.73 m?? eGFR 55 (L) >=60 mL/min/1.73 m?? documented in this encounter Plan of Treatment Upcoming Encounters Date Type Specialty Care Team Description 04/04/2022 Office Visit Dermatology Celena Salazar MD [facility] [address] [place], [place] [address] (Wo rk) documented as of this encounter Procedures Procedure Name Priority Date/Time Associated Diagnosis Comme nts ORDS - PROVIDER 11/10/2018 12:00 AM Resul ts for this CARE SCAN EDT procedure are i n the results section. documented in this encounter Results SCAN DOC: ORDS - PROVIDER CARE (11/10/2018 12:00 AM EDT) Narrative 11/10/2018 12:00 AM EDT This result has an attachment that is no t available. Ordered by an unspecified provider. 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
--- OUTSIDE RECORDS SUMMARY | 2022-02-02 00:30 | XMS_ITS | Encounter Summary ---
:1950 Author Organization [facility] [place] [address] Care Team Providers Name Role Phone Amanda Barnett DO Primary Care Provider Encounter Details Date Type Department Care Team Description 02/13/2018 Office Visit Endocrinology at [facility] Gage Walton Type 2 diabetes mellitus wit h complication, unspecified whether termite treater helper insulin use; [facility] MD Artie Type 2 diabetes mellitus with complicati on, with long-term current use [place] [address] [phone] [place] [id number] Social History Tobacco Use Types Packs/Day Years Used Date Former Smoker Cigarettes Quit: 04/04/19 99 Smokeless Tobacco: Never Used Alcohol Use Standard Drinks/Week Comments No 0 (1 standard drink = 0.6 oz pure alcoho l) Sex Assigned at Date Recorded Not on file documented as of this encounter Last Filed Vital Signs Vital Sign Reading Time Taken Comments Blood Pressure 102/74 02/13/2018 10:53 AM EDT Pulse 85 02/13/2018 10:53 AM EDT Temperature - - Respiratory Rate - - Oxygen Saturation - - Inhaled Oxygen Concentration - - Weight 120.2 kg (265 lb) 02/13/2018 10:53 AM EDT Height 167.6 cm (5' 6) 02/13/2018 10:53 AM EDT Body Mass Index 42.77 02/13/2018 10:53 AM EDT documented in this encounter Patient Instructions Patient InstructionsCrGage kimble MD - 02/13/2018 11:00 AM EDT Take your glimeperide in the evening Look at the [facility] wellness center website and please let me know if you would like a referral: [email or web address] Get blood drawn same day as followup documented in this encounter Progress Notes Ggae Gupta MD - 02/13/2018 11:00 AM EDT Ms. Pennie Rodriguez is an 67 y.o. female who presents for ongoing care of Diabetes and Obesity Last seen in this practice by Diane Nolasco, per last encounter: type 2 in excellent overall control. Encouraged patient to check glucose levels before the evening meal to avoid hyperglycemia before bed. Encouraged to take the Apidra before the evening meal. Okay to stop the glimepiride. Gave patient copy of her lab results and reviewed them with her. Is due for afollow-up visit with instructional material director in February or March. Return to office in 6 months. Will check hemoglobin A1c. This was a 32 minute office visit with 24 minutes spent counseling [id number] with patient in the management of glucose levels. Advising to lower Lantus dose by 2 units if fasting glucose in a.m. is under 100. Interval history: Working with chairman & co founder, CDE and pharmacist locally to improve weight and blood sugars. Overall feelswell today. Continues to see instructional material director in close followup for CKD. Meds: tradjenta 5mg since Apr lantus 30-->32 recently given fasting hyperglycemia Apidra insulin---has but only takes if sugar is >150 according to a sliding scale given to her byDiane Nolasco glimeperide 1mg in AM Eating: Eats three meals per day Eats largest meal for dinner Bedtime: no snack Sugar log: AM fastin-170s Pre lunch: 130-210s Predinner: 140-210s Bed: 130-250s Eye visit: has been seen over the summer --- had mild hemorrhage in past but not recently No numbness or tingling in feet No current vision problems Review of Systems: Overall feels well No abdominal pain/nausea currently No vision problems Mild numbness/tingling in hands No foot wounds or problems ROS otherwise negative Current Outpatient Medications: ??? linagliptin (TRADJENTA) 5 mg Tablet, Take 1 tablet by mouth daily. (Creatinine too high for Sitagliptin), Disp: 90 tablet, Rfl: 3 ??? linagliptin (TRADJENTA) 5 mg Tablet, Daily, [...] meals)., Disp: 15 mL, Rfl: 3 ??? insulin glargine (LANTUS SOLOSTAR) 100 unit/mL pen, Inject 42 Units subcutaneously nightly., Disp: 45 mL, Rfl: 3 ??? glimepiride (AMARYL) 4 mg Tablet, Take 1 tablet by mouth 2 times daily (before meals)., Disp: 180 tablet, Rfl: 3 ??? fluorouracil (EFUDEX) 5 % [...] OXYGEN-AIR DELIVERY SYSTEMS (WALKABOUT [address] [facility]), by [facility].(Non- Drug; Combo Route) route., Disp: , Rfl: ??? Calcium Carbonate-Vitamin D3 (CALCIUM 500 + D) 500 mg(1,250mg) -400 unit Chew, Take by mouth 2 times daily., Disp: , Rfl: ??? atorvastatin (LIPITOR) 40 mg tablet, Take 40 mg by mouth daily., Disp: , Rfl: ??? fluticasone-salmeterol (ADVAIR) 100-50 mcg/dose diskus inhaler, Inhale 1 puff into the lungs every 12 hours., Disp: , Rfl: ??? hydrochlorothiazide (HYDRODIURIL) 25 mg tablet, Take 12.5 mg by mouth daily., Disp: , Rfl: ??? cyanocobalamin, vitamin B-12, 250 mcg tablet, Take 500 mcg by mouth daily., Disp: , Rfl: ??? aspirin 81 mg EC tablet, Take 81 mg by mouth daily., Disp: , Rfl: ??? pramoxine (PROCTOFOAM) 1 % foam, , Disp: , Rfl: Past Medical History: Diagnosis Date ??? Anemia [...] for the past 24 hrs: Pulse BP 02/13/18 1053 85 102/74 Wt & BMI By Encounter Date Office Visit from 02/13/2018 in Endocrinology at [facility] Office Visit from 12/31/2017 in Hematology and Oncology at [facility] Weight 120.2 kg (265 lb) 1 02/13/2018 1053 123.8 kg (273 lb) 1 12/31/2017 1602 BMI 42.77 1 02/13/2018 1053 44.06 1 12/31/2017 1602 General: no acute distress, pleasant, sitting comfortably Face: not round or red Eyes: no lid lag; normal eye movements Nose: not enlarged Mouth: mucous membranes moist Neck: no supraclavicular fat pads; no thyroid enlargement Lymphatic: no palpable cervical lymph nodes Respiratory: symmetrical chest expansion, breathing comfortably on room air, no audible stridor Cardiovascular:2+ DP pulse, regular rhythm Musculoskeletal: moving all 4 extremities normally, normal female musculature Skin: normal temperature/texture Neurological: no tremors; normal gait, ambulates with walker Psychological: alert/oriented to person, place, time; normal affect; memory intact; normal judgement/insight Radiology Studies: Laboratory Data: Component Latest Ref Rng & Units 12/31/2017 12/05/2017 09/09/2017 05/06/2017 Glucose Lvl 65 - 199 mg/dL 114 BUN 8 - 18 mg/dL 47 (H) Creatinine 0.70 - 1.20 mg/dL 1.65 (H) Sodium 135 - 145 mmol/L 141 Potassium 3.5 - 5.0 mmol/L 4.8 Chloride 98 - 107 mmol/L 104 CO2 22 - 31 mmol/L 27 Anion Gap 5 - 15 mmol/L 10 Calcium 8.5 - 10.5 mg/dL 9.2 Total Protein 6.1 - 8.0 gm/dL 6.9 Albumin 3.2 - 5.2 gm/dL 3.9 AST 0 - 30 unit/L 10 ALT 0 - 30 unit/L 12 Alk Phos 40 - 104 unit/L 88 Total Bilirubin 0.2 - 1.3 mg/dL 0.2 eGFR >=60 mL/min/1.73 m?? 31 (L) eGFR >=60 mL/min/1.73 m?? 36 (L) Alb/Cr Ratio, Random 0 - 29 mcg/mg Cr 10 U Albumin Conc, Random mg/L 8.0 U Creatinine mg/dL 84 Hemoglobin A1C 4.3 - 5.6 % 6.6 (H) Est Avg Gluc mg/dL 143 LDL Chol Direct <=190 mg/dL 77 Component Latest Ref Rng & Units 02/13/2018 Hemoglobin A1C 4.3 - 5.6 % 7.1 (H) Est Avg Gluc mg/dL 157 02/13/18 LDL: 80 Assessment / Plan: 1) Diabetes Mellitus type II, uncontrolled - reminded patient to have yearly eye exam and regular dental visits - A1c may mildly underestimate glycemic control given CKD but it is likely close to goal (<7%) - move glimeperide 1mg to before dinner because this is her largest meal - continue lantus 32 units nightly, with target sugar 90-125 - continue Apidra per sliding scale goal sugar 150 as needed - given CKD, metformin not an option at this point - if still having trouble with getting to goal A1c, consider changing tradjenta to victoza, but would do this cautiously given bad reaction to Byetta in past - continue to work with pharmacist and drier attendant 2) Morbid Obesity: - multiple complications associated with it. - she is working closely with drier attendant to optimize weight, and plans to start weight watchers soon which I support. - we did talk about a referral to the [facility] which I would support, she will review the website and will let me know if she is interested, I can make a referral 3) Dyslipidemia: LDL near optimal (optimal would be <70) - it is reasonable to continue current dose of atorvastatin, I would expect modest reduction with 5-10% weight loss, if this is not a possibility then consider increasing dose I spent 30 minutes face to face with the patient, 20 minutes of which was spent counseling the patient on the issues stated above Please do not hesitate to contact me with questions Return to clinic in around 4 months Gage Gupta MD Bar Pointersupervisor pumping Endocrin[facility] documented in this encounter Plan of Treatment Upcoming Encounters Date Type Specialty Care Team Description 04/04/2022 Office Visit Dermatology Celena Salazar MD [facility] ER [address] THERESE LEOS[address]DERMAT [place], [place] [address] (Wo rk) Scheduled Orders Name Type Priority Associated Diagnoses Order S chedule Basic Metabolic Panel Lab Routine Type 2 diabetes татьяна litus Expected: 05/23/2018 (non-fasting) with complication, (Approxi mate), unspecified whether long Exp ires: 11/22/2018 term insulin use documented as of this encounter Results (ABNORMAL) Hemoglobin A1c (05/19/2018 12:20 PM EST) Analysis Performed At Patho logist Time Signature Hemoglobin A1C 7.3 (H) 4.3 - 5.6 [facility] Comment: Reference Range: 4.3 - [...] Mellitus, Diabetes Care 2013; 36: Suppl. 1, S67-74 Est Avg Gluc 163 mg/dL [facility] Comment: eAG equivalents for HbA1c percentages: HbA1c(%) ?eAG(mg/dL) 6.0 ?126 6.5 ?140 7.0 ?154 7.5 ?169 8.0 ?183 8.5 ?197 9.0 ?212 9.5 ?226 10.0 ? 240 Limitations: The eAG calculation has not been validated on women, individuals below 18 years old and above 70 years old, and individuals with hemoglobinopathies. Additional resources are available on [facility] website. Chevy PARTIDA, Jr J, Syed R, et al. ??Tr anslating the A1C assay into estimated average glucose values. ??Diabetes Care 2008:31(8):4916-9879. Specimen Anatomical Collection Method Collection Time Receive d Time (Source) Location / / Volume Laterality Blood specimen 05/19/2018 12:20 9 (specimen) PM EST 12:39 PM EST Resulting Agency Comment Spec In Lab Gage Gupta MD CHEMISTRY ORDERABLES Performing Organization Address City/[facility]/ZIP Code Phon e Number [address] LDL Cholesterol, Direct (02/13/2018 10:06 AM EDT) P athologist Signature LDL Chol 80 mg/dL [facility] Comment: Lowest Risk: <100 mg/dL Lower Risk: 100-129 mg/dL Borderline High Risk: 130-159 mg/dL High Risk: 160-189 mg/dL Very High Risk: >iv=665 mg/dL Specimen Anatomical Collection Method Collection Time Receive d Time (Source) Location / / Volume Laterality Blood specimen 02/13/2018 10:06 8 (specimen) AM EDT 10:18 AM EDT Resulting Agency Comment Spec In Lab Gage Gupta MD CHEMISTRY ORDERABLES Performing Organization Address City/State/ZIP Code Phon e Number [address] (ABNORMAL) Hemoglobin A1c (02/13/2018 10:06 AM EDT) Analysis Performed At Patho logist Time Signature Hemoglobin A1C 7.1 (H) 4.3 - 5.6 [facility] Comment: Reference Range: 4.3 - [...] Mellitus, Diabetes Care 2013; 36: Suppl. 1, I82-39 Est Avg Gluc 157 mg/dL [facility] Comment: eAG equivalents for HbA1c percentages: HbA1c(%) ?eAG(mg/dL) 6.0 ?126 6.5 ?140 7.0 ?154 7.5 ?169 8.0 ?183 8.5 ?197 9.0 ?212 9.5 ?226 10.0 ? 240 Limitations: The eAG calculation has not been validated on women, individuals below 18 years old and above 70 years old, and individuals with hemoglobinopathies. Additional resources are available on [facility] website. Chevy PARTIDA, Jr J, Syed R, et al. ??Tr anslating the A1C assay into estimated average glucose values. ??Diabetes Care 2008:31(8):7918-2038. Specimen Anatomical Collection Method Collection Time Receive d Time (Source) Location / / Volume Laterality Blood specimen 02/13/2018 10:06 8 (specimen) AM EDT 10:18 AM EDT Resulting Agency Comment Spec In Lab Gage Gupta MD CHEMISTRY ORDERABLES Performing Organization Address City/State/ZIP [place] [address] documented in this encounter Visit Diagnoses Diagnosis Type 2 diabetes mellitus with complicati on, unspecified whether snf insulin use Type 2 diabetes mellitus with complicati on, with long-term current use of insulin documented in this encounter Care Teams Spun Paste Machine Operator Relationship Specialty Start Date End Date Amanda Barnett DO PCP - General Family Medicine 06/19/[address] [place] [address] documented as of this encounter
--- OUTSIDE RECORDS SUMMARY | 2022-02-02 00:30 | XMS_ITS | Encounter Summary ---
:1950 Author Organization [facility] [place] [address] Care Team Providers Name Role Phone Anibal Amandadarleen Willis DO Primary Care Provider Encounter Details Date Type Department Care Team Description 09/23/2017 Telephone [facility] [place] [phone] Social History Tobacco Use Types Packs/Day Years Used Date Former Smoker Cigarettes Quit: 04/04/19 99 Smokeless Tobacco: Never Used Alcohol Use Standard Drinks/Week Comments No 0 (1 standard drink = 0.6 oz pure alcoho l) Sex Assigned at Date Recorded Not on file documented as of this encounter Miscellaneous Notes Telephone Encounter - Diane Serra APRN - 09/24/2017 1:08 PM EDT FINISHER FINE DIAMOND DIES called pt. She thought that she should not take the tradjenta because it is in the same class as the januvia. Advised ok to take the tradjenta with CKD. Telephone Encounter - Ana Carrillo RN - 09/23/2017 4:41 PM EDT Patient called triage to say she is no longer taking Trajenta and is experiencing some high sugars late in the day. Patient stopped Trajenta after meeting with bonding machine setter. Will forward information to Provider. documented in this encounter Plan of Treatment Upcoming Encounters Date Type Specialty Care Team Description 04/04/2022 Office Visit Dermatology Celena Salazar MD [facility] ER DR THERESE LEOS[address]DER[address] [place], [place] [address] (Wo rk) documented as of this encounter Visit Diagnoses Not on filedocumented in this encounter Care Teams Railway Patrol Officer Relationship Specialty Start Date End Date Amanda Barnett DO PCP - General Family Medicine 06/19/[address] [place] [address] documented as of this encounter
--- OUTSIDE RECORDS SUMMARY | 2022-02-02 00:30 | XMS_ITS | Encounter Summary ---
:1950 Author Organization [facility] [place] [address] Care Team Providers Name Role Phone Amanda Barnett DO Primary Care Provider Reason for Referral Diagnostic Test (Routine) - Specialty Diagnoses / Procedures Referred By Contact Refer red To Contact Radiology Diagnoses Squamous cell carcinoma of left lung Delbert Greenberg MD [facility] Rad Ct Scan Procedures CT Chest wo Contrast (Generic) [facility] DR P[facility] ONCOLOGY [place], [place] [id number] [place] [phone] Referral ID Status Reason Start Date Expiration Visits Visits Date Requested Authorized [id number] Specialty 12/31/2017 12/31/2018 1 1 Service Requested Reason for Visit Diagnostic Test (Routine) - Specialty Diagnoses / Procedures Referred By Contact Refer red To Contact Radiology Diagnoses Squamous cell carcinoma of left lung Delbert Greenberg MD [facility] Rad Ct Scan Procedures CT Chest wo Contrast (Generic) [facility] ONCOLOGY [place], [place] [id number] [place] [phone] Referral ID Status Reason Start Date Expiration Visits Visits Date Requested Authorized [id number] Specialty 12/31/2017 12/31/2018 1 1 Service Requested Encounter Details Date Type Department Care Team Description 05/19/[address] Scan at [facility] Dragnev, Squamous cell [facility] Delbert Ramírez MD carcinoma of left Drive [facility] [place] [address] MEDICAL ONCOLOGY [phone] [place], [place] [address] Social History Tobacco Use Types [...] needed. Reported on 09/25/2016 OXYGEN-AIR DELIVERY by [facility].(Non-Drug; 0 SYSTEMS (WALKABOUT 2 Combo Route) route [facility]XYGEN SYSTEM [facility]) as needed. atorvastatin (LIPITOR) 40 Take 40 [...] Visit Dermatology Celena Salazar MD [facility] [address] TH[address]ESE [address] [place], [place] [address] (Wo rk) documented as of this encounter Procedures Procedure Name Priority Date/Time Associated Diagnosis Comme nts CT CHEST WO Routine 05/19/2019 12:02 PM Squamous cell Results for this CONTRAST (GENERIC) EST carcinoma of left proc edure are in [...] report, please contact e number below. ? Electronically signed by: Verena Albright [facility] ([phone]), at 05/19/2019 2:29 PM Narrative 05/19/2019 2:29 PM EST EXAMINATION: CT [...] this report, please contact e number below. Electronically signed by: Verena Albright [facility] ([phone]), at 05/19/2019 2:29 PM Delbert Greenberg MD IMG CT ORDERABLES documented in this encounter Visit Diagnoses Diagnosis Squamous cell carcinoma of left lung documented in this encounter Care Teams Air Brake Man Relationship Specialty Start Date End Date Amanda Barnett DO PCP - General Family Medicine 06/19/[address] [place] [address] documented as of this encounter
--- OUTSIDE RECORDS SUMMARY | 2022-02-02 00:30 | XMS_ITS | Encounter Summary ---
:1950 Author Organization [facility] Address [address] [place] [address] Care Team Providers Name Role Phone Amanda Barnett Primary Care Provider Reason for Visit Reason Onset Date Comments Pump/sensor 09/23/2018 Freestyle [employer]mk[employer] - So lisa Encounter Details Date Type Department Care Team Description 09/23/2018 Telephone Endocrinology at [facility] Anna Howard Pump/sensor [facility] Martha Mello RN ([place] [address] [facility]) [phone] Social History Tobacco Use Types Packs/Day Years Used Date Former Smoker Cigarettes Quit: 04/04/19 99 Smokeless Tobacco: Never Used Alcohol Use Standard Drinks/Week Comments No 0 (1 standard drink = 0.6 oz pure alcoho l) Sex Assigned at Date Recorded Not on file documented as of this encounter Miscellaneous Notes Telephone Encounter - Anna Calvillo RN - 09/23/2018 11:40 AM EDT Pt left msg asking if we have received Omkar forms from [facility] and asking if not can we please follow up with [facility]. documented in this encounter Plan of Treatment Upcoming Encounters Date Type Specialty Care Team Description 04/04/2022 Office Visit Dermatology Celena Salazar MD [facility] ER DR THERESE LEOS[address]DER[address] [place], [place] [address] (Wo rk) documented as of this encounter Visit Diagnoses Not on filedocumented in this encounter Care Teams Cancer Center Director Relationship Specialty Start Date End Date Amanda Barnett DO PCP - General Family Medicine 06/19/17 [address] [place] [address] documented as of this encounter
--- OUTSIDE RECORDS SUMMARY | 2022-02-02 00:30 | XMS_ITS | Encounter Summary ---
:1950 Author Organization [facility] [place] [address] Care Team Providers Name Role Phone Amanda Barnett DO Primary Care Provider Reason for Visit Reason Comments Diabetes Encounter Details Date Type Department Care Team Description 12/05/2017 Office Visit Endocrinology at [facility] Diane Lewis, Type 2 diabetes [facility] RARE/ENDANGERED SPECIES SPECIALIST mellitus with stage 3 [facility] [place] [address] disease, with [phone] ENDOCRINOLOGY long-term curr ent use DEPT. of insulin [place] [id number] Social History Tobacco Use Types Packs/Day Years Used Date Former Smoker Cigarettes Quit: 04/04/19 99 Smokeless Tobacco: Never Used Alcohol Use Standard Drinks/Week Comments No 0 (1 standard drink = 0.6 oz pure alcoho l) Sex Assigned at Date Recorded Not on file documented as of this encounter Last Filed Vital Signs Vital Sign Reading Time Taken Comments Blood Pressure 128/65 12/05/2017 1:04 PM EDT Pulse 81 12/05/2017 1:04 PM EDT Temperature - - Respiratory Rate - - Oxygen Saturation - - Inhaled Oxygen Concentration - - Weight 122.9 kg (271 lb) 12/05/2017 1:04 PM EDT Height 167.6 cm (5' 6) 12/05/2017 1:04 PM EDT Body Mass Index 43.74 12/05/2017 1:04 PM EDT documented in this encounter Patient Instructions Patient InstructionsDiane Serra RARE/ENDANGERED SPECIES SPECIALIST - 12/05/2017 1:00 PM EDT Ok to stop the glimepiride Lower PM lantus dose by 2 units if AM glucose is under 100 Check glucose before evening meal to see if you need apidra which will help get glucose under 180 before Due for major donor coordinator appointment in Feb or Mar documented in this encounter Progress Notes Diane Serra APRN - 12/05/2017 1:00 PM EDT Office visit note for Pennie Rodriguez. 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 Also, hypertension in excellent control, hyperlipidemia at goal, morbid obesity. Brief history: States glucose levels are usually close to 100 in the morning but they are close to 200 when she goes to bed SBGM: 2 times a day Diabetes regimen: Lantus 32 units in p.m. Glimepiride 4 mg before breakfast and before bed. Occasionally takes Apidra insulin but has not needed it recently Complications: Chronic kidney disease. Had appointment with major donor coordinator Dr. Rendon earlier this year Past Medical History: Diagnosis Date ??? Anemia [...] is obese with a larger central girth. Ambulates with assistance of a wheeled walker. She has lost 34 pounds since April which she states is from eating smaller portionsand avoiding sweets as much as possible and no potatoes or bread. Blood pressure 128/65. Weight 271 pounds. Eyes: No retinopathy with greenlight exam. Neck: No thyromegaly or lymphadenopathy. Heart: Regular rate and rhythm. Right lung sounds are clear to auscultation. Feet: Skin is normal, pulses are normal. Neuro: Normal sensation to 10 G's of pressure Hemoglobin A1c 6.6%, previous was 6.4% GFR = 31. Impression and plan: DM type 2 in excellent overall control. Encouraged patient to check glucose levels before the evening meal to avoid hyperglycemia before bed. Encouraged to take the Apidra before the evening meal. Okay to stop the glimepiride. Gave patient copy of her lab results and reviewed themwith her. Is due for a follow-up visit with major donor coordinator in February or March. Return to office in 6 months. Will check hemoglobin A1c. This was a 32 minute office visit with 24 minutes spent counseling [id number] with patient in the management of glucose levels. Advising to lower Lantus dose by 2 units if fasting glucose in a.m. is under 100. Congratulated her with weight loss efforts. Recent Results (from the past 72 hour(s)) Hemoglobin A1c Result Value Ref Range Hemoglobin A1C 6.6 (H) 4.3 - 5.6 % Est Avg Gluc 143 mg/dL Creatinine Result Value Ref Range Creatinine 1.68 (H) 0.70 - 1.20 mg/dL eGFR 31 (L) >=60 mL/min/1.73 m?? eGFR 36 (L) >=60 mL/min/1.73 m?? documented in this encounter Plan of Treatment Upcoming Encounters Date Type Specialty Care Team Description 04/04/2022 Office Visit Dermatology Celena Salazar MD [facility] [address] [place], [place] [address] (Wo rk) documented as of this encounter Results (ABNORMAL) Hemoglobin A1c (11/25/2018 12:41 PM EDT) Analysis Performed At [facility] Time Signature Hemoglobin A1C 7.1 (H) 4.3 - 5.6 [facility] Comment: Reference Range: [...] Mellitus, Diabetes Care 2013; 36: Suppl. 1, S67-81 Est Avg Gluc See note mg/dL [place] [facility] Comment: Estimated Average Glucose not appropriat [...] with hemoglobinopathies. Additional resources are available on [facility] website. Chevy PARTIDA, Jr J, Syed R, et al. ??Tr anslating the A1C assay into estimated average glucose values. ??Diabetes Care 2008:31(8):0433-9084. Specimen Anatomical Collection Method Collection Time Receive d Time (Source) Location / / Volume Laterality Blood specimen 11/25/2018 12:41 9 (specimen) PM EDT 12:47 PM EDT Resulting Agency Comment Spec In Lab Diane Serra APRN CHEMISTRY ORDERABLES Performing Organization Address City/State/ZIP [place] [address] documented in this encounter Visit Diagnoses Diagnosis Type 2 diabetes mellitus with stage 3 ch ronic kidney disease, with long-term current use of insulin documented in this encounter Care Teams Accordion Maker Relationship Specialty Start Date End Date Amanda Barnett DO PCP - General Family Medicine 06/19/17 [facility] [place] [place] [address] documented as of this encounter
--- OUTSIDE RECORDS SUMMARY | 2022-02-02 00:30 | XMS_ITS | Encounter Summary ---
:1950 Author Organization [facility] [place] [address] Care Team Providers Name Role Phone Amanda Barnett DO Primary Care Provider Reason for Visit Reason Comments Medication Refill Encounter Details Date Type Department Care Team Description 01/17/2018 Refill Endocrinology at [facility] Diane Lewis, [facility] [place] [address] ENDOCRINOLOGY DEPT. [phone] [place], [place] [address] (Wo rk) Social History Tobacco [...] [facility] [address] [place], [place] [address] (Wo rk) documented as of this encounter Visit Diagnoses Not on filedocumented in this encounter Care Teams Glass Grinder Relationship Specialty Start Date End Date Amanda Barnett DO PCP - General Family Medicine 06/19/[address] [place] [address] documented as of this encounter
--- OUTSIDE RECORDS SUMMARY | 2022-02-02 00:30 | XMS_ITS | Encounter Summary ---
:1950 Author Organization [facility] [place] [address] Care Team Providers Name Role Phone LiyaAmanda lopez Alba LAURENT Primary Care Provider Encounter Details Date Type Department Care Team Description 11/24/2018 Orders Only Endocrinology at [facility] Diane Serra, Type 2 diabetes [facility] Martha galan TUNNEL MUCKER mellitus with stage 3 [place] [address] [facility] MEDICAL chronic kidney [phone] [place], with ENDOCRINOLOGY long-term curr ent use DEPT. of insulin [place], [place] [address] Social History Tobacco Use Types [...] 04/04/2022 Office Visit Dermatology Celena Salazar MD [facility] [address] [place], [place] [address] (Wo rk) Scheduled Orders Name Type Priority Associated Diagnoses Order S chedule Hemoglobin A1c Lab STAT Type 2 diabetes mellitus w ith Expected: 11/24/2018, stage 3 chronic kidney Expir es: 05/26/2019 disease, with long-term current use of insulin documented as of this encounter Visit Diagnoses Diagnosis Type 2 diabetes mellitus with stage 3 ch ronic kidney disease, with long-term current use of insulin documented in this encounter Care Teams Boat Rental Clerk Relationship Specialty Start Date End Date Amanda Barnett DO PCP - General Family Medicine 06/19/[address] [place] [address] documented as of this encounter
--- OUTSIDE RECORDS SUMMARY | 2022-02-02 00:30 | XMS_ITS | Encounter Summary ---
:1950 [place] [address] Care Team Providers Name Role Phone Amanda Barnett DO Primary Care Provider Encounter Details Date Type Department Care Team Description 08/12/2018 Laboratory Appointment Lab 3L [facility] [place] [address] Social History Tobacco Use Types Packs/Day [...] Office Visit Dermatology Celena Salazar MD [facility] [address] TH[address] [place], [place] [address] (Wo rk) documented as of this encounter Visit Diagnoses Not on filedocumented in this encounter Care Teams Patient Support Tech Relationship Specialty Start Date End Date Amanda Barnett DO PCP - General Family Medicine 06/19/[address] [place] [place] [address] documented as of this encounter
--- OUTSIDE RECORDS SUMMARY | 2022-02-02 00:30 | XMS_ITS | Encounter Summary ---
:1950 Author Organization [facility] [place] [address] Care Team Providers Name Role Phone Amanda Barnett DO Primary Care Provider Encounter Details Date Type Department Care Team Description 05/19/2018 Laboratory Appointment Lab 3L [facility] CKD (chronic kidney disease) stage 3, GFR 30-59 ml/min; [facility] Type 2 diabetes mellitus wit h complication, unspecified [place] [phone] Social History Tobacco Use Types Packs/Day Years [...] 04/04/2022 Office Visit Dermatology Celena Salazar MD [facility] ER [address] TH[address]ESE [address], [place] [address] (Wo rk) documented as of this encounter Procedures Procedure Name Priority Date/Time Associated Diagnosis Comme nts PTH STAT 05/19/2018 12:20 CKD (chronic kidney Resu lts for this PM EST disease) stage 3, procedure are in GFR 30-59 ml/min the results section. HEMOGRAM STAT 05/19/2018 12:20 CKD (chronic kidney Resu lts for this PM EST disease) stage 3, procedure are in GFR 30-59 ml/min the results section. DIFFERENTIAL, STAT 05/19/2018 12:20 CKD (chronic kidney Res ults for this AUTOMATED PM EST disease) stage 3, procedure are in GFR 30-59 ml/min the results section. VITAMIN D, STAT 05/19/2018 12:20 CKD (chronic kidney Resu lts for this 25-HYDROXY PM EST disease) stage 3, procedure are in GFR 30-59 ml/min the results section. CBC (WITH DIFF) STAT 05/19/2018 12:20 CKD (chronic kidney PM EST disease) stage 3, GFR 30-59 ml/min PHOSPHORUS STAT 05/19/2018 12:20 CKD (chronic kidney Resu lts for this PM EST disease) stage 3, procedure are in GFR 30-59 ml/min the results section. HEMOGLOBIN A1C Routine 05/19/2018 12:20 Type 2 diabetes Result s for this PM EST mellitus with procedure are in complication, the results unspecified whether section. assistant terminal manager insulin use ALBUMIN LEVEL STAT 05/19/2018 12:20 CKD (chronic kidney Res ults for this PM EST disease) stage 3, procedure are in GFR 30-59 ml/min the results section. BASIC METABOLIC STAT 05/19/2018 12:20 CKD (chronic kidney R esults for this PANEL (NON-FASTING) PM EST disease) stage 3, pro cedure are in GFR 30-59 ml/min the results section. documented in this encounter Results (ABNORMAL) Differential, Automated (05/19/2018 12:20 PM EST) P athologist Signature Neutrophils % 67.3 % [facility] Neutr Abs (ANC) 5.85 1.70 - [facility] 6.10 [facility] x10(3)/[facility] LABORATORY Lymphocytes % 22.0 % [facility] Lymphocytes Abs 1.9 0.9 - 3.[address] [facility] x10(3)/[facility] LABORATORY Monocytes % 7.6 % [facility] Monocyte Abs 0.7 0.3 - 0.[address] [facility] x10(3)/[facility] LABORATORY Eosinophils % 1.4 % [facility] Eosinophils Abs 0.1 0.0 - 0.[address] [facility] x10(3)/[facility] LABORATORY Basophils % 1.0 % [facility] Basophils Abs 0.1 0.0 - 0.[address] [facility] x10(3)/[facility] LABORATORY Immature Gran % 0.70 % [facility] Comment: Immature granulocytes(IG's)percentage an d absolute count will include metamyelocytes, myelocytes, and promyelo cytes. Blood smears from CBCs yielding IG's will be scanned manually for concor dance. If this scan disagrees with the automated IG or if promyelocytes are not ed, a manual differential will be performed. Shanae Gran Abs 0.06 (H) 0.00 - 0.04 x10(3)/[facility] LABORATORY Specimen Anatomical Collection Method Collection Time Receive d Time (Source) Location / / Volume Laterality Blood specimen 05/19/2018 12:20 9 (specimen) PM EST 12:31 PM EST Resulting Agency Comment Spec In Lab Denilson Rendon MD HEMATOLOGY ORDERABLES Performing Organization Address City/State/ZIP Code Phon e Number [place] [id number] [address] (ABNORMAL) Hemogram (05/19/2018 12:20 PM EST) Analysis Performed At Patho logist Time Signature WBC 8.7 4.0 - 9.[address] [facility] x10(3)/[facility] LABORATORY RBC 3.98 (L) 4.00 - [facility] 5.21 [facility] x10(6)/[facility] LABORATORY Hemoglobin 11.5 (L) 11.7 - [facility] 15.5 gm/dL [facility] Hematocrit 36.9 35.7 - [facility] 45.8 % [facility] MCV 92.7 82.6 - [facility] 94.4 [facility] LABORATORY MCH 28.9 27.1 - [facility] 32.0 pg [facility] MCHC 31.2 (L) 31.7 - [facility] 35.0 gm/dL [facility] Platelets 230 145 - [address] [facility] x10(3)/[facility] LABORATORY RDWSD 47.7 (H) 37.0 - [facility] 46.0 [facility] LABORATORY RDWCV 13.7 11.5 - [facility] 14.1 % [facility] LABORATORY MPV 10.4 7.6 - 12.9 [facility] LABORATORY nRBC % Auto 0.0 % [facility] nRBC Abs Auto 0.000 0.000 - [place] 0.000 [facility] x10(3)/[facility] LABORATORY Specimen Anatomical Collection Method Collection Time Receive d Time (Source) Location / / Volume Laterality Blood specimen 05/19/2018 12:20 9 (specimen) PM EST 12:31 PM EST Resulting Agency Comment Spec In Lab Denilson Rendon MD HEMATOLOGY ORDERABLES Performing Organization Address City/State/ZIP Code Phon e Number [place] [id number] [address] (ABNORMAL) Hemoglobin A1c (05/19/2018 12:20 PM EST) Analysis Performed At Patho logist Time Signature Hemoglobin A1C 7.3 (H) 4.3 - 5.6 [facility] Comment: Reference Range: 4.3 - [...] 1, S67-74 Est Avg Gluc 163 mg/dL [facility] Comment: eAG equivalents for HbA1c percentages: HbA1c(%) ?eAG(mg/dL) 6.0 ?126 6.5 ?140 7.0 ?154 7.5 ?169 8.0 ?183 8.5 ?197 9.0 ?212 9.5 ?226 10.0 ? 240 Limitations: The eAG calculation has not been validated on women, individuals below 18 years old and above 70 years old, and individuals with hemoglobinopathies. Additional resources are available on [facility] website. Chevy PARTIDA, Jr J, Syed R, et al. ??Tr anslating the A1C assay into estimated average glucose values. ??Diabetes Care 2008:31(8):0904-7044. Specimen Anatomical Collection Method Collection Time Receive d Time (Source) Location / / Volume Laterality Blood specimen 05/19/2018 12:20 9 (specimen) PM EST 12:39 PM EST Resulting Agency Comment Spec In Lab Gage Gupta MD CHEMISTRY ORDERABLES Performing Organization Address City/State/[place] [address] (ABNORMAL) Basic Metabolic Panel (non-fasting) (05/19/2018 12:20 PM EST) P athologist Signature Glucose Lvl 90 65 - [address] [facility] mg/dL [facility] Comment: Diabetes: >=200 mg/dL plus symp toms BUN 44 (H) 8 - 18 mg/dL [facility] Creatinine 1.35 (H) 0.70 - 1.20 mg/dL [facility] Sodium 143 135 - 145 mmol/L [facility] Potassium 4.9 3.5 - 5.0 mmol/L [facility] Comment: Please note: ??Patients with WBC >100,00 0 may have falsely elevated Potassium levels. ??For accurate Potassium quantif ication in these patients send serum separator tube (gold top) for subsequent determinations. ??Contact the Clinical Chemistry Laboratory if there are any qu estions. Chloride 105 98 - 107 mmol/L [facility] CO2 25 22 - 31 mmol/L [facility] Anion Gap 13 5 - 15 mmol/L [facility] Calcium 9.2 8.5 - 10.5 mg/dL [facility] Estimated GFR 40 (L) >=60 mL/min/1.73 m?? [facility] Comment: The eGFR was calculated using the CKD-EP I equation. As with all creatinine based estimates of kidney function, eGFR values calculated with the CKD-EPI equation are not accurate in patients wi th acute kidney failure, extremes of body mass or the acutely ill. http://Common Curriculum/[facility] ALVAnkf eGFR 46 (L) >=60 mL/min/1.73 m?? [facility] Comment: The eGFR was calculated using the CKD-EP I equation. As with all creatinine based estimates of kidney function, eGFR values calculated with the CKD-EPI equation are not accurate in patients wi th acute kidney failure, extremes of body mass or the acutely ill. http://Common Curriculum/[facility] ALVAnkf Specimen Anatomical Collection Method Collection Time Receive d Time (Source) Location / / Volume Laterality Blood specimen 05/19/2018 12:20 9 (specimen) PM EST 12:39 PM EST Resulting Agency Comment Spec In Lab Denilson Rendon MD CHEMISTRY ORDERABLES Performing Organization Address City/[facility]/ZIP [place] [address] PTH (05/19/2018 12:20 PM EST) P athologist Signature PTH 35 15 - 65 [facility] pg/mL [facility] Specimen Anatomical Collection Method Collection Time Receive d Time (Source) Location / / Volume Laterality Blood specimen 05/19/2018 12:20 9 (specimen) PM EST 12:45 PM EST Resulting Agency Comment Spec In Lab Denilson Rendon MD CHEMISTRY ORDERABLES Performing Organization Address City/[facility] [place] [address] Albumin Level (05/19/2018 12:20 PM EST) athologist Signature Albumin 4.0 3.2 - 5.2 [place] gm/dL [facility] Specimen Anatomical Collection Method Collection Time Receive d Time (Source) Location / / Volume Laterality Blood specimen 05/19/2018 12:20 9 (specimen) PM EST 12:39 PM EST Resulting Agency Comment Spec In Lab Denilson Rendon MD CHEMISTRY ORDERABLES Performing Organization Address City/[facility]/ZIP Code Phon e Number [address] Phosphorus (05/19/2018 12:20 PM EST) P athologist Signature Phosphorus 3.5 2.5 - 4.5 [place] mg/dL [facility] Specimen Anatomical Collection Method Collection Time Receive d Time (Source) Location / / Volume Laterality Blood specimen 05/19/2018 12:20 9 (specimen) PM EST 12:39 PM EST Resulting Agency Comment Spec In Lab Denilson Rendon MD CHEMISTRY ORDERABLES Performing Organization Address City/[facility]/ZIP Code Phon e Number [address] Vitamin D, 25-Hydroxy (05/19/2018 12:20 PM EST) P athologist Signature 25-OH Vit D 38 30 - 100 [place] Total ng/mL [facility] Comment: Deficient <10 ng/mL Insufficient 10 to 29 ng/mL Sufficient 30 to 100 ng/mL Potential Intoxication >100 ng/mL According to the [place] National Osteoporosi s Foundation, Vitamin D concentrations >30 ng/mL are sufficient to protect bone health. ??The National Kidney Foundation has similarly stated that pat ients with Vitamin D concentrations <30ng/mL should be considered to be insu fficient or deficient. http://W-locate.com/nkf-guidelines http://W-locate.com/nejm-VitD The [employer] Vitamin D Immunoassay detec [...] Organization Address City/State/[place] [address] documented in this encounter Visit Diagnoses Diagnosis CKD (chronic kidney disease) stage 3, GF R 30-59 ml/min Chronic kidney disease, Stage III (moder ate) Type 2 diabetes mellitus with complicati on, unspecified whether assistant terminal manager insulin use documented in this encounter Care Teams Newspaper Carriers Supervisor Relationship Specialty Start Date End Date Amanda Barnett DO PCP - General Family Medicine 06/19/[address] [place] [address] documented as of this encounter
--- OUTSIDE RECORDS SUMMARY | 2022-02-02 00:30 | XMS_ITS | Encounter Summary ---
:1950 Author Organization [facility] [place] [address] Care Team Providers Name Role Phone Anibal Amanda [place] LAURENT Primary Care Provider Encounter Details Date Type Department Care Team Description 12/31/2017 Laboratory Lab 3L Ana Squamous cell c arcinoma of left lung; Appointment [facility] CKD (engineering test specialist angélica kidney disease) stage 3, GFR 30-59 ml/min; [facility] Gastroesophageal reflux [place] [id number] Social History Tobacco Use Types Packs/Day Years [...] [facility]ERESE LE[facility] [place], [place] [address] (Wo rk) documented as of this encounter Procedures Procedure Name Priority Date/Time Associated Comments Diagnosis PTH STAT 12/31/2017 2:12 PM CKD (chronic kidney Re sults for this EDT disease) stage 3, procedure are in GFR 30-59 ml/min the results Gastroesophageal section. reflux disease with esophagitis HEMOGRAM STAT 12/31/2017 2:12 PM Squamous cell Results for this EDT carcinoma of left procedure are in lung the results section. DIFFERENTIAL, STAT 12/31/2017 2:12 PM Squamous cell Results for this AUTOMATED EDT carcinoma of left procedure are in lung the results section. CBC (WITH DIFF) STAT 12/31/2017 2:12 PM Squamous cell EDT carcinoma of left lung PHOSPHORUS STAT 12/31/2017 2:12 PM CKD (chronic kidney Re sults for this EDT disease) stage 3, procedure are in GFR 30-59 ml/min the results Gastroesophageal section. reflux disease with esophagitis LACTATE DEHYDROGENASE STAT 12/31/2017 2:12 PM Squamous cell Results for this EDT carcinoma of left procedure are in lung the results section. COMPREHENSIVE STAT 12/31/2017 2:12 PM Squamous cell Results for this METABOLIC PANEL EDT carcinoma of left procedu re are in (NON-FASTING) lung the results section. documented in this encounter Results (ABNORMAL) Differential, Automated (12/31/2017 2:12 PM EDT) [facility] gist Method Time Signature Neutrophils % 70.7 % [facility] Neutr Abs (ANC) 6.25 (H) 1.70 - [facility] 6.10 [facility] x10(3)/[facility] LABORATORY Lymphocytes % 18.9 % [facility] Lymphocytes Abs 1.7 0.9 - 3.2 [facility] x10(3)/[facility] LABORATORY Monocytes % 7.6 % [facility] Monocyte Abs 0.7 0.3 - 0.9 [facility] x10(3)/[facility] LABORATORY Eosinophils % 1.5 % [facility] Eosinophils Abs 0.1 0.0 - 0.4 [facility] x10(3)/[facility] LABORATORY Basophils % 0.8 % [facility] Basophils Abs 0.1 0.0 - 0.1 [facility] x10(3)/[facility] LABORATORY Immature Gran % 0.50 % [facility] Comment: Immature granulocytes(IG's)percentage an d absolute count will include metamyelocytes, myelocytes, and promyelo cytes. Blood smears from CBCs yielding IG's will be scanned manually for concor dance. If this scan disagrees with the automated IG or if promyelocytes are not ed, a manual differential will be performed. Shanae Gran Abs 0.04 0.00 - 0.04 x10(3)/[facility] LABORATORY Specimen Anatomical Collection Method Collection Time Receive d Time (Source) Location / / Volume Laterality Blood specimen 12/31/2017 2:12 PM 018 2:19 (specimen) EDT PM EDT Resulting Agency Comment Spec In Lab Delbert Greenberg MD HEMATOLOGY ORDERABLES Performing Organization Address City/State/[place] [address] (ABNORMAL) Hemogram (12/31/2017 2:12 PM EDT) Analysis Performed At Patho logist Time Signature WBC 8.8 4.0 - 9.5 [facility] x10(3)/[facility] LABORATORY RBC 3.82 (L) 4.00 - [facility] 5.21 [facility] x10(6)/[facility] LABORATORY Hemoglobin 11.2 (L) 11.7 - [facility] 15.[facility] gm/dL [facility] Hematocrit 35.5 (L) 35.7 - [facility] 45.8 % [facility] MCV 92.9 82.6 - [facility] 94[facility]4 [facility] MCH 29.3 27.1 - [facility] 32.0 pg [facility] MCHC 31.5 (L) 31.7 - [facility] 35.0 gm/dL [facility] Platelets 245 145 - 357 [facility] x10(3)/[facility] LABORATORY RDWSD 47.7 (H) 37.0 - [facility] 46.0 [facility] LABORATORY RDWCV 14.2 (H) 11.5 - [facility] 14.1 % [facility] MPV 10.3 7.6 - 12.9 [facility] LABORATORY nRBC % Auto 0.0 % [facility] nRBC Abs Auto 0.000 0.000 - [facility] 0.000 [facility] x10(3)/[facility] LABORATORY Specimen Anatomical Collection Method Collection Time Receive d Time (Source) Location / / Volume Laterality Blood specimen 12/31/2017 2:12 PM 018 2:19 (specimen) EDT PM EDT Resulting Agency Comment Spec In Lab Delbert Greenberg MD HEMATOLOGY ORDERABLES Performing Organization Address City/[facility]/ZIP Code Phon e Number [address] Phosphorus (12/31/2017 2:12 PM EDT) P athologist Signature Phosphorus 3.0 2.5 - 4.5 [facility] mg/dL [facility] Specimen Anatomical Collection Method Collection Time Receive d Time (Source) Location / / Volume Laterality Blood specimen 12/31/2017 2:12 PM 018 2:19 (specimen) EDT PM EDT Resulting Agency Comment Spec In Lab Denilson Rendon MD CHEMISTRY ORDERABLES Performing Organization Address City/[facility]/ZIP Code Phon e Number [address] PTH (12/31/2017 2:12 PM EDT) P athologist Signature PTH 56 15 - 65 [facility] pg/mL [facility] Specimen Anatomical Collection Method Collection Time Receive d Time (Source) Location / / Volume Laterality Blood specimen 12/31/2017 2:12 PM 018 2:19 (specimen) EDT PM EDT Resulting Agency Comment Spec In Lab Denilson Rendon MD CHEMISTRY ORDERABLES Performing Organization Address City/[facility]/ZIP [facility] [place] [address] (ABNORMAL) Comprehensive metabolic panel (non-fasting) (12/31/2017 2:12 PM EDT) P athologist Signature Glucose Lvl 114 65 - 199 [facility] mg/dL [facility] Comment: Diabetes: >=200 mg/dL plus symp toms BUN 47 (H) 8 - 18 mg/dL [facility] Creatinine 1.65 (H) 0.70 - 1.20 mg/dL [facility] Sodium 141 135 - 145 mmol/L [facility] Potassium 4.8 3.5 - 5.0 mmol/L [facility] Comment: Please note: ??Patients with WBC >100,00 0 may have falsely elevated Potassium levels. ??For accurate Potassium quantif ication in these patients send serum separator tube (gold top) for subsequent determinations. ??Contact the Clinical Chemistry Laboratory if there are any qu estions. Chloride 104 98 - 107 mmol/L [facility] CO2 27 22 - 31 mmol/L [facility] Anion Gap 10 5 - 15 mmol/L [facility] Calcium 9.2 8.5 - 10.5 mg/dL [facility] Total Protein 6.9 6.1 - 8.0 gm/dL [facility] Albumin 3.9 3.2 - 5.2 gm/dL [facility] AST 10 0 - 30 unit/L [facility] ALT 12 0 - 30 unit/L [facility] Alk Phos 88 40 - 104 unit/L [facility] Total Bilirubin 0.2 0.2 - 1.3 mg/dL [facility]OR[facility] Estimated GFR 31 (L) >=60 mL/min/1.73 m?? [facility] Comment: The eGFR was calculated using the CKD-EP I equation. As with all creatinine based estimates of kidney function, eGFR values calculated with the CKD-EPI equation are not accurate in patients wi th acute kidney failure, extremes of body mass or the acutely ill. http://[employer]/[facility]ULSAnkf eGFR 36 (L) >=60 mL/min/1.73 m?? [facility] Comment: The eGFR was calculated using the CKD-EP I equation. As with all creatinine based estimates of kidney function, eGFR values calculated with the CKD-EPI equation are not accurate in patients wi th acute kidney failure, extremes of body mass or the acutely ill. http://[employer]/[facility] TULSAnkf Specimen Anatomical Collection Method Collection Time Receive d Time (Source) Location / / Volume Laterality Blood specimen 12/31/2017 2:12 PM 018 2:19 (specimen) EDT PM EDT Resulting Agency Comment Spec In Lab Delbert Greenberg MD CHEMISTRY ORDERABLES Performing Organization Address City/State/ZIP Code Phon e Number [address] Lactate Dehydrogenase (12/31/2017 2:12 PM EDT) athologist Signature LDH 174 110 - 220 [facility] unit/[facility] Specimen Anatomical Collection Method Collection Time Receive d Time (Source) Location / / Volume Laterality Blood specimen 12/31/2017 2:12 PM 018 2:19 (specimen) EDT PM EDT Resulting Agency Comment Spec In Lab Delbert Greenberg MD CHEMISTRY ORDERABLES Performing Organization Address City/[facility]/[place] [address] documented in this encounter Visit Diagnoses Diagnosis Squamous cell carcinoma of left lung CKD (chronic kidney disease) stage 3, GF R 30-59 ml/min Chronic kidney disease, Stage III (moder ate) Gastroesophageal reflux disease with eso phagitis documented in this encounter Care Teams Angiography Nurse Relationship Specialty Start Date End Date Amanda Barnett DO PCP - General Family Medicine 06/19/[address] [place] [address] documented as of this encounter
--- OUTSIDE RECORDS SUMMARY | 2022-02-02 00:30 | XMS_ITS | Encounter Summary ---
:1950 Author Organization [facility] [place] [address] Care Team Providers Name Role Phone Amanda Barnett DO Primary Care Provider Encounter Details Date Type Department Care Team Description 03/30/2019 Telephone Hematology and Oncology at [address], [place] [address] Social History Tobacco Use Types Packs/Day Years Used Date Former Smoker Cigarettes Quit: 04/04/19 99 Smokeless Tobacco: Never Used Alcohol Use Standard Drinks/Week Comments No 0 (1 standard drink = 0.6 oz pure alcoho l) Sex Assigned at Date Recorded Not on file documented as of this encounter Miscellaneous Notes Telephone Encounter - Joan Smith RN - 03/30/2019 10:59 AM EST Message received from school attendance secretary: Patient has a cold right now and is heading to her pcp, she is asking if she should cancel tomorrow labs, ctmd because of her symptoms and what the ct might show due to the illness? Please call to discuss [phone] Call placed to patient to discuss. She is coming for yearly f/u scans but is not feeling well with cold symptoms ? Upper resp infection. She is seeing PCP this afternoon. Pt is asking whether it is ok to cancel tomorrow's f/u appts & scans. She is concerned about spreading infection or the possibility of her current symptoms affecting scan results therefore she would prefer to wait. Discussed with Jaqueline Whitman APRN who is in agreement. Advised pt that she will hear from school attendance secretary with new appt times & we will go ahead & cancel appts for tomorrow. Encouraged to call back to clinic with further questions or concerns. Pt in agreement. documented in this encounter Plan of Treatment Upcoming Encounters Date Type Specialty Care Team Description 04/04/2022 Office Visit Dermatology Celena Salazar MD [facility] ER [address] [place], [place] [address] (Wo rk) documented as of this encounter Visit Diagnoses Not on filedocumented in this encounter Care Teams Semiconductor Technician Relationship Specialty Start Date End Date Amanda Barnett DO PCP - General Family Medicine 06/19/[address] [place] [address] documented as of this encounter
--- OUTSIDE RECORDS SUMMARY | 2022-02-02 00:30 | XMS_ITS | Encounter Summary ---
:1950 Author Organization [facility] [place] [address] Care Team Providers Name Role Phone Amanda Barnett DO Primary Care Provider Reason for Visit Reason Comments Skin Check hx of AKS Encounter Details Date Type Department Care Team Description 10/30/2017 Office Visit Dermatology at Do bradley Heck MD [facility] [address] [place] [address] AK (actinic keratosis); Road Melita Baltazar PA [facility] [place] [address] Benign nevus [address] [place] [address] Social History Tobacco Use Types Packs/Day Years Used Date Former Smoker Cigarettes Quit: 04/04/19 99 Smokeless Tobacco: Never Used Alcohol Use Standard Drinks/Week Comments No 0 (1 standard drink = 0.6 oz pure alcoho l) Sex Assigned at Date Recorded Not on file documented as of this encounter Patient Instructions Patient InstructionsJeanette Valencia V - 10/30/2017 11:30 AM EDT Actinic Keratoses You have been diagnosed today with Actinic Keratosis (AK). These dry, scaly patches are considered the earliest stage in the development of skin cancer. In rare cases, an AK can progress to skin cancer. Because of this risk, AKs are usually treated. You were treated today with Liquid Nitrogen. This is the most common treatment for AKs. Liquid nitrogen is extremely cold, and freezes the surface of the skin, causing the lesion to flake off. Treatment with liquid nitrogen can be uncomfortable, but discomfort should subside after a couple of hours. The area treated will look red and irritated, and it may blister up or turn dark, then fall off. This is normal! You do not need any special treatment for the area, but you may find cold compresses and/or a light application of Vaseline soothing. For best results, do not rub or pick at the healing lesion. Expected healing time is 3-4 weeks. Please contact the Dermatology clinic at [phone] if the lesion has not fully resolved after 6 weeks. documented in this encounter Progress Notes Melita Baltazar PA - 10/30/2017 11:30 AM EDT DERMATOLOGY - ESTABLISHED PATIENT CLINIC NOTE Date of service: 10/30/2017 Pennie Rodriguez : 1950 Dermatology Physician Charge Out Clerk Note: Melita Ryder) DEANNA Baltazar Chief Complaint Patient presents with ??? Skin Check hx of AKS This is an established patient, last seen by myself on 06/19/2017. HPI: Pennie Rodriguez is a 66 y.o. female who presents for a waist up skin examination. She treated an actinic keratosis on the nose about 4 months ago with Efudex BID for 3 weeks without resolution. She also points out a small bump on the right chest. Denies itching, bleeding, or tenderness of any of these lesions. She says that she did not receive a courtesy call regarding her appointment in August, which is why shemissed it because she did not know about it. Skin History: Actinic keratosis (Efudex - 06/2017 here and 02/[address] Julio Leslie) Medical History: Past Medical History: Diagnosis Date ??? Anemia After chemo but this has resolved per pt. ??? Arthritis ??? Asthma ??? COPD (chronic obstructive pulmonary disease) ??? Diabetes mellitus ??? GERD (gastroesophageal reflux disease) ??? Hoarseness Evaluated by Dr Leslie. Attributed to inhalers. ??? Hyperlipidemia ??? Hypertension ??? Lung cancer Tx surgically, XRT and chemotherapy ??? Obesity ??? Stasis dermatitis No Defibrillator/pacemaker No Anti-coagulants Medications: Current Outpatient Prescriptions on File Prior to [...] OXYGEN-AIR DELIVERY SYSTEMS (WALKABOUT 2 OXYGEN SYSTEM [facility]) by [facility]Non- Drug; Combo Route) route. ??? Calcium Carbonate-Vitamin [...] facility-administered medications on file prior to visit. Allergies: Allergies Allergen Reactions ??? Byetta [Exenatide] STOMACH CRAMPS ??? Metformin Diarrhea ??? Morphine Sulfate Nausea And Vomiting Family History: Father -non-melanoma skin cancer on nose No known family h/o atopy, psoriasis, or other skin disease ?? Social/Occupational History: Lives with son Retired from postal service Review of Systems: - General: Feels well. - Skin: As per HPI; no other skin concerns. Examination: - Constitutional: Patient was alert, well-appearing and in no noticeable distress. - Skin exam: Examination of skin from the waist up was performed. This includes examination of the skin of the face, ears, neck, chest, axillae, left and right upper extremities, hands, back, and abdomen. Diagnosis/Assessment/Treatment Plan: 1. Actinic keratosis - Nasal bridge x1: 0.2-0.3cm scaly irregular pink papule. - Discussed premalignant potential of these lesions. - Discussed that a surgical procedure would likely be needed if these were to progress to skin cancer. - Shared decision to proceed with LN2 treatment at this time: Procedure Note: Procedure: Destruction of lesion with cryotherapy. Number: 1 Location: as above Discussed procedure and expectations including risks (including risk of hypopigmentation) and benefits. Verbal consent obtained. Frozen with LN2, 15-30 second thaw time, TWICE. There were no complications; the patient tolerated the procedure well. Post-procedure expectations and wound care were reviewed. 2. Benign appearing nevus - Right chest: 3mm flesh colored papule with central pigment. - Patient reassured of benign nature. - Observe skin for change in color, size or character. Call if such occur. LOS: [id number] RTC: 1 year for FSE, routed for scheduling with a message to please ensure patient gets a call/letter before her next appt. Patient verbally expressed understanding. I specifically asked the patient at the end of the visit if there were any further concerns or questions and the patient verbally stated there were no other concerns or questions. All questions were answered and all concerns were addressed. Note initiated by LADAN Antony, Clinical Scribe - I am documenting this encounter acting as the scribe for and in the presence of Melita Baltazar PA-C (Bri) I performed the above scribed service and agree with the accuracy of the documentation in this encounter. Reviewed and signed by Melita Baltazar PA-C (Bri) Dermatology [facility] Patient seen in conjunction with staff physician: Rama Salazar MD Section of Dermatology [facility] Rama Salazar MD - 10/30/2017 11:30 AM EDT Skin cancer examination AK treated with LN2 Benign nevus on the chest Patient seen in conjunction with Melita Baltazar PA-C (Bri) Signed by: RAMA SALAZAR MD Section of Dermatology [facility] documented in this encounter Plan of Treatment Upcoming Encounters Date Type Specialty Care Team Description 04/04/2022 Office Visit Dermatology Rama Salazar MD [facility] [address] [place], [place] [address] (Wo rk) documented as of this encounter Visit Diagnoses Diagnosis AK (actinic keratosis) Actinic keratosis Benign nevus Benign neoplasm of skin, site unspecifie d documented in this encounter Care Teams Cloth Presser Relationship Specialty Start Date End Date Amanda Barnett DO PCP - General Family Medicine 06/19/17 [address] [facility] [place] [address] documented as of this encounter
--- OUTSIDE RECORDS SUMMARY | 2022-02-02 00:31 | XMS_ITS | Encounter Summary ---
:1950 Author Organization [facility] [place] [address] Care Team Providers Name Role Phone Gerry Hackett MD Primary Care Provider [phone] Encounter Details Date Type Department Care Team Description 07/13/[address] [facility] C Jess Martinez, [place] [address] Social History Tobacco Use Types Packs/Day Years Used Date Former Smoker Quit: 04/04/19 99 Smokeless Tobacco: Never Used Alcohol Use Standard Drinks/Week Comments No 0 (1 standard drink = 0.6 oz pure alcoho l) Sex Assigned at Date Recorded Not on file documented as of this encounter Miscellaneous Notes Telephone Encounter - Jess Martinez, RN - 07/13/2016 2:15 PM EDT Images from the original note were not included. Pennie Rodriguez?? Female, 65 y.o., 1950 Weight: (!) 142 kg (313 lb) Home: PCP: Gerry Hackett MD myD-H: Pending Next Appt: 08/28/2016 ?? Message Received: Today ? Jonas Blackwood MD Boule, Shannon L, RN ? Cc: Diane Serra, PRINTING PRESSMAN ? Caller: Unspecified (Today, 10:26 AM) ? She can continue metformin for now and will need to be contacted when she comes back to confirm the decision. Thanks Jonas Placed call to Pennie. Message given. Pennie states it is coming by mail and thinks she may wait untilDiane is in before starting it. Message also forwarded to [place] Telephone Encounter - Jess Martinez, RN - 07/13/2016 10:26 AM EDT Received call from Pennie. States that she was in earlier this week to see who started her on anew medication, invokana. States that they did not discuss her metformin at all and so is not sure if she should be continuing with the metformin and adding invokana to it. Or should she stop the metformin. Message forwarded to Dr blackwood, home economics expert MD documented in this encounter Plan of Treatment Upcoming Encounters Date Type Specialty Care Team Description 04/04/2022 Office Visit Dermatology Celena Salazar MD [facility] [address] [place], [place] [address] (Wo rk) documented as of this encounter Visit Diagnoses Not on filedocumented in this encounter Care Teams Sales Representative Printing Relationship Specialty Start Date End Date Gerry Hackett MD PCP - General 03/14/10 06/18/[address] [place] [address] documented as of this encounter
--- OUTSIDE RECORDS SUMMARY | 2022-02-02 00:31 | XMS_ITS | Encounter Summary ---
:1950 Author Organization [facility] [place] [address] Care Team Providers Name Role Phone Gerry Hackett MD Primary Care Provider [phone] Reason for Visit Reason Comments Other Encounter Details Date Type Department Care Team Description 09/01/2015 Telephone Hematology and Oncol ogy at [facility] [place] [address] Social History Tobacco Use Types Packs/Day Years Used Date Former Smoker Quit: 04/04/19 99 Smokeless Tobacco: Never Used Alcohol Use Standard Drinks/Week Comments No 0 (1 standard drink = 0.6 oz pure alcoho l) Sex Assigned at Date Recorded Not on file documented as of this encounter Miscellaneous Notes Telephone Encounter - Blossom Shankar RN - 09/01/2015 8:01 AM EDT Requested by provider: Could you call her and let her know that I discussed the right clavicle discomfort with Dr. Greenberg- we are not concerned. She should call if discomfort is progressive or persistent. We would also like to get a CT scan when she returns in a year (instead of the CXRs that she hasbeen receiving- this change is due to provider preference- she was previously followed by Sharri) Call placed to patient: Call placed to patient, reviewed the above information, provided contact information to call back with further questions. documented in this encounter Plan of Treatment Upcoming Encounters Date Type Specialty Care Team Description 04/04/2022 Office Visit Dermatology Celena Salazar MD [facility] [address] THERESE LEOS[address]DERMAT [place], [place] [address] (Wo rk) documented as of this encounter Visit Diagnoses Not on filedocumented in this encounter Care Teams Vault Cashier Relationship Specialty Start Date End Date Gerry Hackett MD PCP - General 03/14/10 06/18/[address] [place] [address] documented as of this encounter
--- OUTSIDE RECORDS SUMMARY | 2022-02-02 00:31 | XMS_ITS | Encounter Summary ---
:1950 Author Organization [facility] [place] [address] Care Team Providers Name Role Phone Gerry Hackett MD Primary Care Provider [phone] Encounter Details Date Type Department Care Team Description 08/01/2016 Telephone Endocrinology at [facility] Diane Lewis APRN [facility] [place] [address] ENDOCRINOLOGY DEPT. [phone] [place], [place] [address] (Wo rk) Social History Tobacco [...] [facility] [address] THERESE LEOS[address]DERMAT [place], [place] [address] (Wo rk) documented as of this encounter Visit Diagnoses Not on filedocumented in this encounter Care Teams Refinery Technician Relationship Specialty Start Date End Date Gerry Hackett MD PCP - General 03/14/10 06/18/[address] [place] [address] documented as of this encounter
--- OUTSIDE RECORDS SUMMARY | 2022-02-02 00:31 | XMS_ITS | Encounter Summary ---
:1950 Author Organization [facility] [place] [address] Care Team Providers Name Role Phone Gerry Hackett MD Primary Care Provider [phone] Encounter Details Date Type Department Care Team Description 01/14/2017 Laboratory Appointment Lab 3L [facility] 2 diabetes [facility] mellitus with stage 2 [facility] k [facility] disease, with [place], [place] long-term curre nt use [id number] of insulin [phone] Social History Tobacco Use Types Packs/Day Years [...] 04/04/2022 Office Visit Dermatology Celena Salazar MD [facility] [address] THERESE LEOS[address]DERMAT [place], [place] [address] (Wo rk) documented as of this encounter Procedures Procedure Name Priority Date/Time Associated Comments Diagnosis HEMOGLOBIN A1C Routine 01/14/2017 10:45 AM Type 2 diabetes Res ults for this EDT mellitus with stage procedur e are in 2 chronic kidney the results disease, with section. long-term current use of insulin BASIC METABOLIC Routine 01/14/2017 10:45 AM Type 2 diabetes Re sults for this PANEL (NON-FASTING) EDT mellitus with stage p rocedure are in 2 chronic kidney the results disease, with section. long-term current use of insulin documented in this encounter Results (ABNORMAL) Hemoglobin A1c (01/14/2017 10:45 AM EDT) Analysis Performed At Patho logist Time Signature Hemoglobin A1C 7.5 (H) 4.3 - 5.6 [facility] Comment: Reference Range: 4.3 - 5.6% 5.7 - 6.4% - Increased Risk of Developin g Diabetes Mellitus >=6.5% - Consistent with diagnosis of Di abetes Mellitus In the absence of hyperglycemia (i.e. pl asma glucose > 200 mg/dL) or classic symptoms of hyperglycemia a repeat measu rement of HbA1c should be performed on a separate sample to confirm the diagnos is. Diagnosis and Classification of Diabetes Mellitus, Diabetes Care 2013; 36: Suppl. 1, S67-74 Est Avg Gluc 169 mg/dL [facility] Comment: eAG equivalents for HbA1c percentages: HbA1c(%) ?eAG(mg/dL) 6.0 ?126 6.5 ?140 7.0 ?154 7.5 ?169 8.0 ?183 8.5 ?197 9.0 ?212 9.5 ?226 10.0 ? 240 Limitations: The eAG calculation has not been validated on women, individuals below 18 years old and above 70 years old, and individuals with hemoglobinopathies. Additional resources are available on ADA website. Chevy PARTIDA, Jr J, Syed R, et al. ??Tr anslating the A1C assay into estimated average glucose values. ??Diabetes Care 2008:31(8):0792-4922. Specimen Anatomical Collection Method Collection Time Receive d Time (Source) Location / / Volume Laterality Blood specimen 01/14/2017 10:45 7 (specimen) AM EDT 10:57 AM EDT Resulting Agency Comment Spec In Lab Pratik Cee MD CHEMISTRY ORDERABLES Performing Organization Address City/State/ZIP Code Phon e Number [facility] [place] [address] (ABNORMAL) Basic Metabolic Panel (non-fasting) (01/14/2017 10:45 AM EDT) athologist Signature Glucose Lvl 128 65 - 199 [facility] mg/dL [facility] Comment: Diabetes: >=200 mg/dL plus symp toms BUN 34 (H) 8 - 18 mg/dL [facility] Creatinine 1.34 (H) 0.70 - 1.20 mg/dL [facility] Comment: Please note that the pediatric reference intervals supplied above were not validated at [facility]. Results from pediatri c patients should be interpreted in conjunction to the patient's age, height and muscle mass. Sodium 140 135 - 145 mmol/L [facility] Potassium 5.4 (H) 3.5 - 5.0 mmol/L [facility] Comment: Please note: ??Patients with WBC >100,00 0 may have falsely elevated Potassium levels. ??For accurate Potassium quantif ication in these patients send serum separator tube (gold top) for subsequent determinations. ??Contact the Clinical Chemistry Laboratory if there are any qu estions. Chloride 101 98 - 107 mmol/L [facility] CO2 28 22 - 31 mmol/L [facility] Anion Gap 11 5 - 15 mmol/L [facility] Calcium 9.6 8.5 - 10.5 mg/dL [facility] Estimated GFR 39 (L) >=60 [facility] Comment: This estimated GFR (eGFR) value was calc ulated using the MDRD equation which has been validated on patients between t he ages of 18 and 70. The MDRD should not be used to assess kidney function in patients < 18 years of age or in patients with extremes of body mass, or in patients with acute kidney failure. This value should be multiplied by 1.2 f or patients. For further information please copy and past e the following links into your internet browser. 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
--- OUTSIDE RECORDS SUMMARY | 2022-02-02 00:31 | XMS_ITS | Encounter Summary ---
:1950 Author Organization [facility] [place] [address] Care Team Providers Name Role Phone Gerry Hackett MD Primary Care Provider [phone] Encounter Details Date Type Department Care Team Description 08/28/2016 Orders Only Hematology and Oncol ogy at [facility] [place] [address] Social History Tobacco Use Types Packs/Day [...] Visit Dermatology Celena Salazar MD [facility] [address] [place], [place] [address] (Wo rk) documented as of this encounter Visit Diagnoses Not on filedocumented in this encounter Care Teams Senior Storage Engineer Relationship Specialty Start Date End Date Gerry Hackett MD PCP - General 03/14/10 06/18/[address] [place] [address] documented as of this encounter
--- OUTSIDE RECORDS SUMMARY | 2022-02-02 00:31 | XMS_ITS | Encounter Summary ---
:1950 Author Organization [facility] Address [facility] [place] [address] Care Team Providers Name Role Phone Gerry Hackett MD Primary Care Provider [phone] Reason for Visit Reason Comments Skin Check annual Encounter Details Date Type Department Care Team Description 11/07/2016 Office Visit Dermatology at Antony Brody MD [facility] [address] [address] [place] (actinic keratosis); Road Melita Baltazar PA [facility] [address] THERESE RUIZ-DERMATOLOGY [place] [id number] Skin tag [address] [place] [address] Social History Tobacco Use Types Packs/Day Years Used Date Former Smoker Quit: 04/04/19 99 Smokeless Tobacco: Never Used Alcohol Use Standard Drinks/Week Comments No 0 (1 standard drink = 0.6 oz pure alcoho l) Sex Assigned at Date Recorded Not on file documented as of this encounter Progress Notes Melita Baltazar PA - 11/07/2016 2:00 PM EDT DERMATOLOGY - ESTABLISHED PATIENT CLINIC NOTE Date of service: 11/07/2016 Pennie Rodriguez : 1950 Dermatology Physician Acid Conditioner Note: Melita Baltazar PA-C (Bri) Chief Complaint Patient presents with ??? Skin Check annual This is an established patient, last seen by myself on 12/29/2015 for a full skin check. HPI: Pennie Rodriguez is a 66 y.o. female who presents for a waist up skin check. She expresses concern about an occasionally itchy lesion on the right cheek which has become larger over the years. Denies bleeding, tenderness, or sensitivity. Denies prior treatments. Skin History: Actinic keratosis (Efudex, 02/[address] Julio Leslie) Medical History: [...] to Visit Medication Sig Dispense Refill ??? insulin glargine (LANTUS SOLOSTAR) Insulin Pen Inject 42 Units subcutaneously nightly. 45 mL 3 ??? glimepiride (AMARYL) 4 mg Tablet Take 1 tablet by mouth 2 times daily (before meals). 180 tablet3 ??? lisinopril (PRINIVIL;ZESTRIL) 30 mg Tablet ??? SPIRIVA WITH HANDIHALER 18 mcg Capsule, w/Inhalation Device ??? insulin glulisine (APIDRA SOLOSTAR) 100 unit/mL Insulin Pen Inject 4-10 Units subcutaneously 2 times daily (before meals). 15 mL 3 ??? PROAIR HFA 90 mcg/actuation inhaler Inhale 2 puffs into the lungs as needed. Reported on 09/25/2016 ??? OXYGEN-AIR DELIVERY SYSTEMS (WALKABOUT 2 OXYGEN SYSTEM MIS) by [facility].(Non- Drug; Combo Route) route. ??? Calcium Carbonate-Vitamin [...] Take 81 mg by mouth daily. ??? omeprazole (PRILOSEC) 20 mg capsule ??? pramoxine (PROCTOFOAM) 1 % foam (Patient not taking: No sig reported) ??? sitaGLIPtin (JANUVIA) 100 mg tablet (Patient taking differently: Take 1/2 tablet daily) No current facility-administered medications on file prior to visit. Allergies: Allergies Allergen Reactions ??? Morphine Sulfate Nausea And Vomiting Family History: Father -non-melanoma skin cancer on nose No known family h/o atopy, psoriasis, or other skin disease ?? Social/Occupational History: lives with son Retired from postal service Review of Systems: - General: Feels well. - Skin: As per HPI; no other skin concerns. Examination: - Constitutional: Patient was alert, well-appearing and in no noticeable distress. - Skin exam: Patient was asked to disrobe to the level of their comfort. Examination of skin from the waist up was performed. This includes examination of the skin of the face, ears, neck, chest, axillae, left and right upper extremities, hands, back, and abdomen. Gonzalez Skin Type: 2 Specific skin findings: 1. Left cheek x1, right cheek x1, nasal bridge x1: 0.2-0.3cm scaly irregular pink papules. 2. Right abdomen: 0.2 cm, sessile, flesh-colored papule. Diagnosis/Assessment/Treatment Plan: 1. Actinic keratoses - Discussed premalignant potential of these lesions. - Discussed that a surgical procedure would likely be needed if these were to progress to skin cancer. - Treatment options discussed such as LN2, PDT, and 5-FU. Each treatment's pros and cons were discussed. - Shared decision to proceed with Efudex treatment at this time: - Discussed potential for inflammation. - Discussed the need to have restrictions of light exposure during treatment. Photos were shown for what to expect during treatment course. - OK to stop all together if there is too much discomfort. Urged patient to call the clinic if thereis too much pain or infection is suspected. - Apply Vaseline to the treated areas during the day. Prescriptions: - Rx: Efudex 5% cream, apply to affected areas mentioned above BID for 2-3 weeks. 2. Skin tag - Patient reassured of benign nature. - Advised patient to call if areas become inflamed or irritated. LOS: [id number] Follow up in 3 months, sooner if needed. Appointment scheduled upon exiting. Instructed to call if problems arise. Patient verbally expressed understanding. I specifically asked [...] in this encounter. Reviewed and signed by eMlita Baltazar PA-C (Bri) Dermatology [facility] Patient seen in conjunction with staff physician: Sheela Arteaga MD Section of Dermatology [facility] Sheela Arteaga MD - 11/07/2016 2:00 PM EDT Pt seen and examined with TERRA Tapia Agree with dx of AK and tx with 5 FU Sheela Arteaga MD documented in this encounter Plan of Treatment Upcoming Encounters Date Type Specialty Care Team Description 04/04/2022 Office Visit Dermatology Celena Salazar MD [facility] [address] THERESE RUIZ[address]DERMAT [place], [place] [address] (Wo rk) documented as of this encounter Visit Diagnoses Diagnosis AK (actinic keratosis) Actinic keratosis Skin tag Unspecified hypertrophic and atrophic co ndition of skin documented in this encounter Care Teams Instructional Support Assistant Relationship Specialty Start Date End Date Gerry Hackett MD PCP - General 03/14/10 06/18/[address] [place] [address] documented as of this encounter
--- OUTSIDE RECORDS SUMMARY | 2022-02-02 00:31 | XMS_ITS | Encounter Summary ---
:1950 Author Organization [facility] [place] [address] Care Team Providers Name Role Phone Gerry Hackett MD Primary Care Provider [phone] Encounter Details Date Type Department Care Team Description 07/20/2016 Telephone Endocrinology at [facility] C Jess Martinez, [place] [address] Social History Tobacco Use Types Packs/Day Years Used Date Former Smoker Quit: 04/04/19 99 Smokeless Tobacco: Never Used Alcohol Use Standard Drinks/Week Comments No 0 (1 standard drink = 0.6 oz pure alcoho l) Sex Assigned at Date Recorded Not on file documented as of this encounter Miscellaneous Notes Telephone Encounter - Diane Serra APRN - 08/01/2016 6:00 PM EDT CASH APPLICATION CLERK called pt and advised to use the apidra more consistently before meals to get glucose closer to target Telephone Encounter - Jess Martinez RN - 07/20/2016 10:13 AM EDT Pennie calls in and left message that the invokana was not covered. Placed call to Pennie let her know is away will let her know that will send message to Diane salgado when she returns she can decide on an alternative. documented in this encounter Plan of Treatment Upcoming Encounters Date Type Specialty Care Team Description 04/04/2022 Office Visit Dermatology Celena Salazar MD [facility] ER [address] THERESE LEOS[address]DERMAT [place], [place] [address] (Wo rk) documented as of this encounter Visit Diagnoses Not on filedocumented in this encounter Care Teams Planogrammer Relationship Specialty Start Date End Date Gerry Hackett MD PCP - General 03/14/10 06/18/[address] [place] [address] documented as of this encounter
--- OUTSIDE RECORDS SUMMARY | 2022-02-02 00:31 | XMS_ITS | Encounter Summary ---
:1950 Author Organization [facility] [place] [address] Care Team Providers Name Role Phone Gerry Hackett MD Primary Care Provider [phone] Reason for Visit Reason Comments Diabetes Encounter Details Date Type Department Care Team Description 01/04/2016 Office Visit Endocrinology at [facility] Diane Lewis, Type 2 diabetes [facility] MINI LAB OPERATOR mellitus with stage 3 [facility] [place] [address] disease [phone] END[address] DEPT[address] [place], [place] [address] Social History Tobacco Use Types Packs/Day Years Used Date Former Smoker Quit: 04/04/19 99 Smokeless Tobacco: Never Used Alcohol Use Standard Drinks/Week Comments No 0 (1 standard drink = 0.6 oz pure alcoho l) Sex Assigned at Date Recorded Not on file documented as of this encounter Last Filed Vital Signs Vital Sign Reading Time Taken Comments Blood Pressure 126/74 01/04/2016 12:58 PM EDT Pulse 83 01/04/2016 12:58 PM EDT Temperature - - Respiratory Rate - - Oxygen Saturation - - Inhaled Oxygen Concentration - - Weight 141.9 kg (312 lb 12.8 oz) 01/04/2016 12:58 PM EDT Height 165.3 cm (5' 5.08) 01/04/2016 12:58 PM EDT Body Mass Index 51.93 01/04/2016 12:58 PM EDT documented in this encounter Patient Instructions Patient InstructionsDiane Serra, MINI LAB OPERATOR - 01/04/2016 1:00 PM EDT Consider meals on wheels twice a week Write son's routine and work on plan for the future Advanced directives scanned into medical record (get them from care management) documented in this encounter Progress Notes Diane Serra APRN - 01/04/2016 1:00 PM EDT DATE OF VISIT: 01/04/16 REASON FOR VISIT: Follow up type 2 DM in poor but slowly improving control. Also, hypertension in excellent control, morbid obesity. BRIEF HISTORY: She presents and states she expects her hemoglobin A1C to be lower. PCP has increased the dose of Lantus to 42 units nightly. DIABETES REGIMEN: Lantus Solostar Pen 42 units nightly, metformin 500 mg 2 tablets in a.m. If she increases the dose, she has side effects. Sitagliptin 50 mg daily, glimepiride 4 mg in a.m. COMPLICATIONS: Chronic kidney disease. TWENTY-FOUR HOUR MEAL PLAN: Breakfast was a jelly donut, sometimes has 2 toast. She states she is getting lazy about cooking, has been eating some frozen meals. PHYSICAL ACTIVITY: Not much. Ambulates with assistance of a wheeled walker. Left her oxygen in the car today. Uses oxygen when needed. PAST MEDICAL/SURGICAL HISTORY: Past medical/surgical history is significant for lung cancer, had left lung removed. REVIEW OF SYSTEMS: Depression and mood: Discusses some of the challenges of living with her son who has schizophrenia and type 2 DM. Thoroughly enjoys time with her granddaughter, Yasmeen. EYES: Has had cataracts removed. Vision is okay. No recent chest pain. SLEEP PATTERN: She knows she is at high risk for sleep apnea, and she is working with Dr. Hackett to schedule a sleep study in [place], [place]. She did not want to schedule that during the hot summer months. PHYSICAL EXAM: APPEARANCE: She is obese with a very large central girth. Weight 312 pounds. Blood pressure 126/74. Very pleasant and talkative with good eye contact. EYES: No retinopathy with green light exam. NECK: No thyromegaly or lymphadenopathy. HEART: Regular rate and rhythm. LUNGS: Right lung sounds are clear to auscultation. FEET: Skin is normal. Pulses are normal. NEURO: Normal sensation to 10 g of pressure. Hemoglobin A1C is 8.4%. Previous was 9.0%. IMPRESSION AND PLAN: DM type 2. Advised to take the glimepiride twice a day before meals. Prescription sent. She also requested a written prescription for Lantus Solostar Pens that she will mail to her mail away pharmacy which was done and given to her. Encouraged to consider going to the [employer] which she states are offered twice a week. She states she will consider that. Also, discussed with the patient having a plan in place for her son's care when she is no longer able to. Encouraged her to do her advanced directives and have them scanned into her medical record. She states she has been tired and she does have leg cramps. CUSTOMER BUSINESS MANAGER encouraged patient to schedule the sleep study to see if the fatigue is related to possibly having sleep apnea. This was a 36 minute office visit with 35 minutes spent counseling [id number] with the patient in the management of glucose levels, increasing glimepiride to twice a day, reviewing target glucose levels of between 90 and 130 before meals as much as possible. The patient checks glucose levels 0 to 1 time a day. Has an appointment with PCP in 3 months. Return to Endocrinology in 6 months. Will check hemoglobin A1C and creatinine. Kidney function has been stable. Recent Results (from the past 72 hour(s)) Hemoglobin A1c Result Value Ref Range Hemoglobin A1C 8.4 (H) 4.3 - 5.6 % Est Avg Gluc 194 mg/dL documented in this encounter Plan of Treatment Upcoming Encounters Date Type Specialty Care Team Description 04/04/2022 Office Visit Dermatology Celena Salazar MD [facility] DR [address]ERESE LE[address]MAT [place], [place] [address] (Wo rk) documented as of this encounter Results (ABNORMAL) Hemoglobin A1c (07/10/2016 12:22 PM EDT) Analysis Performed At [facility] Time Signature Hemoglobin A1C 8.6 (H) 4.3 - 5.[address] [facility] Comment: Reference Range: 4.3 - [...] Mellitus, Diabetes Care 2013; 36: Suppl. 1, S67-91 Est Avg Gluc 200 mg/dL [facility] Comment: eAG equivalents for HbA1c percentages: HbA1c(%) ?eAG(mg/dL) 6.0 ?126 6.5 ?140 7.0 ?154 7.5 ?169 8.0 ?183 8.5 ?197 9.0 ?212 9.5 ?226 10.0 ? 240 Limitations: The eAG calculation has not been validated on women, individuals below 18 years old and above 70 years old, and individuals with hemoglobinopathies. Additional resources are available on [facility] website: [email or web address] Chevy PARTIDA, Jr J, Syed R, et al. ??Tr anslating the A1C assay into estimated average glucose values. ??Diabetes Care 2008:31(8):1606-5230. Specimen Anatomical Collection Method Collection Time Receive d Time (Source) Location / / Volume Laterality Blood specimen 07/10/2016 12:22 7 (specimen) PM EDT 12:29 PM EDT Resulting Agency Comment Spec In Lab Pratik Cee MD CHEMISTRY ORDERABLES Performing Organization Address City/[facility]/[place]IP [place] [address] (ABNORMAL) Creatinine (07/10/2016 12:22 PM EDT) P athologist Signature Creatinine 1.10 0.70 - 1.20 [facility] mg/dL [facility] Comment: Please note that the pediatric reference intervals supplied above were not validated at [facility]. Results from pediatri c patients should be interpreted in conjunction to the patient's age, height and muscle mass. Estimated GFR 50 (L) >=60 [facility] Comment: This estimated GFR (eGFR) [...] the following links into your internet browser. [email or web address] Specimen Anatomical Collection Method Collection Time Receive d Time (Source) Location / / Volume Laterality Blood specimen 07/10/2016 12:22 7 (specimen) PM EDT 12:29 PM EDT Resulting Agency Comment Spec In Lab Pratik Cee MD CHEMISTRY ORDERABLES Performing Organization Address City/[facility]/[place]IP [place] [address] documented in this encounter Visit Diagnoses Diagnosis Type 2 diabetes mellitus with stage 3 ch ronic kidney disease Type II or unspecified type diabetes татьяна litus with renal manifestations, not stated as uncontrolled documented in this encounter Care Teams Materials Clerk Relationship Specialty Start Date End Date Gerry Hackett MD PCP - General 03/14/10 06/18/17 [address] [place] [address] documented as of this encounter
--- OUTSIDE RECORDS SUMMARY | 2022-02-02 00:31 | XMS_ITS | Encounter Summary ---
:1950 Author Organization [facility] [place] [address] Care Team Providers Name Role Phone Gerry Hakcett MD Primary Care Provider Reason for Visit Reason Onset Date Comments Prior Authorization 07/18/2016 Encounter Details Date Type Department Care Team Description 07/18/2016 Telephone Endocrinology at [facility] C Princess [place] [address] Social History Tobacco Use Types Packs/Day Years Used Date Former Smoker Quit: 04/04/19 99 Smokeless Tobacco: Never Used Alcohol Use Standard Drinks/Week Comments No 0 (1 standard drink = 0.6 oz pure alcoho l) Sex Assigned at Date Recorded Not on file documented as of this encounter Miscellaneous Notes Telephone Encounter - Princess Fay - 07/18/2016 10:59 AM EDT Medication Prior Authorization [place] Medication name/dose/directions: INVOKANA 300MG - 1X DAILY Rationale for request: TYPE II DM Health plan: FEP BCBS Authorizing client care representative name: VALENTINA Faxed to health plan on: 07/18/16 Health plan decision: DENIED Quantity approved: Authorization number: Start date: End date: documented in this encounter Plan of Treatment Upcoming Encounters Date Type Specialty Care Team Description 04/04/2022 Office Visit Dermatology Celena Salazar MD [facility] ER DR THERESE LEOS[address]DERMAT [place], [place] [address] (Wo rk) documented as of this encounter Visit Diagnoses Not on filedocumented in this encounter Care Teams Programming Equipment Operator Relationship Specialty Start Date End Date Gerry Hackett MD PCP - General 03/14/10 06/18/[address] [place] [address] documented as of this encounter
--- OUTSIDE RECORDS SUMMARY | 2022-02-02 00:31 | XMS_ITS | Encounter Summary ---
:1950 Author Organization [facility] [place] [address] Care Team Providers Name Role Phone Gerry Hackett MD Primary Care Provider [phone] Reason for Referral Diagnostic Test (Routine) - Closed Specialty Diagnoses / Procedures Referred By Contact Refer red To Contact Radiology Diagnoses Malignant neoplasm of lung, unspecified laterality, unspecified part of lung Jaqueline Whitman APRN [facility] Rad Ct Scan Procedures CT Chest wo Contrast (Generic) [facility] [place] [address] [place] [address] Referral ID Status Reason Start Date Expiration Date Visits V isits Requested Authorized [id number] Closed Specialty 06/18/2016 06/18/2017 1 1 Service Requested Encounter Details Date Type Department Care Team Description 06/18/2016 Orders Only Hematology and Oriana Weiner Malignvandana t ne[place] of [place] [facility] lung, unspecified [facility] [place] [address] lung (Primary Dx) [phone] Social History Tobacco Use Types Packs/Day Years [...] Office Visit Dermatology Celena Salazar MD [facility] ER DR THERESE LEOS-DERMAT [place], [place] [address] (Wo rk) documented as of this encounter Results CT Chest wo Contrast (Generic) (09/25/2016 1:22 PM EDT) Anatomical Region Laterality Modality Chest Computed Tomography Specimen (Source) Anatomical Location Collection Method / Collectio n Time Received Time / Laterality Volume Impressions 09/25/2016 2:59 PM EDT Impression: Stable exam. No evidence of disease recu rrence. Narrative 09/25/2016 2:59 PM EDT EXAMINATION: CT CHEST WO CONTRAST (GENERIC) CLINICAL HISTORY: Hx stage III lung ca s /p resection, chemo, radiation. evaluate for disease recurrence TECHNIQUE: Helical CT of the chest was p erformed without contrast. Multiplanar reformatted images were reviewed. COMPARISON: August 30, 2009 FINDINGS: Lungs and airways: Stable. Post LEFT pne umonectomy. No suspicious RIGHT lung pulmonary nodules. The RIGHT lung is sta ble. Pleura and pericardium: Stable trace LEF T pleural effusion. Heart and vasculature: Shifted to the LE FT as noted previously. Mediastinum and hilar structures: No lym phadenopathy Allowing for the lack of intravenous con trast, the portions of the abdominal organs included in the field of view are unremarkable. Osseous structure: No focal lytic or scl erotic osseous lesion. Procedure Note Bart Bro MD - 09/25/2016Form atting of this note might be different from the original. EXAMINATION: CT CHEST WO CONTRAST (GENER IC) CLINICAL HISTORY: Hx stage III lung ca s /p resection, chemo, radiation. evaluate for disease recurrence TECHNIQUE: Helical CT of the chest was p erformed without contrast. Multiplanar reformatted images were reviewed. COMPARISON: August 30, 2009 FINDINGS: Lungs and airways: Stable. Post LEFT pne umonectomy. No suspicious RIGHT lung pulmonary nodules. The RIGHT lung is sta ble. Pleura and pericardium: Stable trace LEF T pleural effusion. Heart and vasculature: Shifted to the LE FT as noted previously. Mediastinum and hilar structures: No lym phadenopathy Allowing for the lack of intravenous con trast, the portions of the abdominal organs included in the field of view are unremarkable. Osseous structure: No focal lytic or scl erotic osseous lesion. IMPRESSION Impression: Stable exam. No evidence of disease recu rrence. Delbert Greenberg MD IMG CT ORDERABLES Lactate Dehydrogenase (09/25/2016 12:12 PM EDT) athologist Signature LDH 174 110 - 220 [facility] unit/L [facility] Specimen Anatomical Collection Method Collection Time Receive d Time (Source) Location / / Volume Laterality Blood specimen 09/25/2016 12:12 7 (specimen) PM EDT 12:17 PM EDT Resulting Agency Comment Spec In Lab Delbert Greenberg MD CHEMISTRY ORDERABLES Performing Organization Address City/State/[place] [address] (ABNORMAL) Comprehensive metabolic panel (non-fasting) (09/25/2016 12:12 PM EDT) athologist Signature Glucose Lvl 126 65 - 199 [facility] mg/dL [facility] Comment: Diabetes: >=200 mg/dL plus symp toms BUN 28 (H) 8 - 18 mg/dL [facility] Creatinine 1.32 (H) 0.70 - 1.20 mg/dL [facility] Comment: Please note that the pediatric reference intervals supplied above were not validated at [facility]. Results from pediatri c patients should be interpreted in conjunction to the patient's age, height and muscle mass. Sodium 142 135 - 145 mmol/L [facility] Potassium 4.5 3.5 - 5.0 mmol/L [facility] Comment: Please note: ??Patients with WBC >100,00 0 may have falsely elevated Potassium levels. ??For accurate Potassium quantif ication in these patients send serum separator tube (gold top) for subsequent determinations. ??Contact the Clinical Chemistry Laboratory if there are any qu estions. Chloride 102 98 - 107 mmol/L [facility] CO2 27 22 - 31 mmol/L [facility] Anion Gap 13 5 - 15 mmol/L [facility] Calcium 9.4 8.5 - 10.5 mg/dL [facility] Total Protein 7.2 6.1 - 8.0 gm/dL [facility] Albumin 4.0 3.2 - 5.2 gm/dL [facility] AST 10 0 - 30 unit/L [facility] ALT 10 0 - 30 unit/L [facility] Alk Phos 104 40 - 104 unit/L [facility] Total Bilirubin <0.2 (L) 0.2 - 1.3 mg/dL [facility] Bili, Direct <0.1 0.0 - 0.3 mg/dL [facility] Estimated GFR 40 (L) >=60 [facility] Comment: This estimated GFR (eGFR) [...] the following links into your internet browser. [email or web address] Specimen Anatomical Collection Method Collection Time Receive d Time (Source) Location / / Volume Laterality Blood specimen 09/25/2016 12:12 7 (specimen) PM EDT 12:17 PM EDT Resulting Agency Comment Spec In Lab Delbert Greenberg MD CHEMISTRY ORDERABLES Performing Organization Address City/State/[place] [address] documented in this encounter Visit Diagnoses Diagnosis Malignant neoplasm of lung, unspecified laterality, unspecified part of lung - Primary Malignant neoplasm of lung, unspecified laterality, unspecified part of lung documented in this encounter Care Teams Prep Person Relationship Specialty Start Date End Date Gerry Hackett MD PCP - General 03/14/10 06/18/[address] [place] [address] documented as of this encounter
--- OUTSIDE RECORDS SUMMARY | 2022-02-02 00:31 | XMS_ITS | Encounter Summary ---
:1950 Author Organization [facility] [place] [address] Care Team Providers Name Role Phone Gerry Hackett MD Primary Care Provider [phone] Reason for Visit Reason Onset Date Comments Medication Refill 02/28/2017 Encounter Details Date Type Department Care Team Description 02/28/2017 Refill Endocrinology at [facility] Diane Lewis [place] [address] [place] [address] ENDOCRINOLOGY DEPT. [phone] [place] [id number] (Wo rk) Social History Tobacco Use Types Packs/Day Years Used Date Former Smoker Cigarettes Quit: 04/04/19 99 Smokeless Tobacco: Never Used Alcohol Use Standard Drinks/Week Comments No 0 (1 standard drink = 0.6 oz pure alcoho l) Sex Assigned at Date Recorded Not on file documented as of this encounter Miscellaneous Notes Telephone Encounter - Nitza Pack LPN - 02/28/2017 11:07 AM EST Message from patient that she and discuss switching to Levemir but has decided that she want to stay on Lantus solostar even if it is a little more costly. Rx to go to [facility] documented in this encounter Plan of Treatment Upcoming Encounters Date Type Specialty Care Team Description 04/04/2022 Office Visit Dermatology Celena Salazar MD [facility] ER [address] [place] [address] (Wo rk) documented as of this encounter Visit Diagnoses Not on filedocumented in this encounter Care Teams Note Taker Relationship Specialty Start Date End Date Gerry Hackett MD PCP - General 03/14/10 06/18/[address] [place] [address] documented as of this encounter
--- OUTSIDE RECORDS SUMMARY | 2022-02-02 00:31 | XMS_ITS | Encounter Summary ---
:1950 Author Organization [facility] [place] [address] Care Team Providers Name Role Phone Gerry Hackett MD Primary Care Provider [phone] Reason for Visit Reason Comments Diabetes Encounter Details Date Type Department Care Team Description 07/10/2016 Office Visit Endocrinology at [facility] Diane Lewis, Type 2 diabetes [facility] APPRENTICE PATTERN MAKER mellitus with stage 2 [facility] [place] [address] disease, with [phone] ENDOCRINOLOGY long-term curr ent use DEPT. of insulin [place] [id number] Social History Tobacco Use Types Packs/Day Years Used Date Former Smoker Quit: 04/04/19 99 Smokeless Tobacco: Never Used Alcohol Use Standard Drinks/Week Comments No 0 (1 standard drink = 0.6 oz pure alcoho l) Sex Assigned at Date Recorded Not on file documented as of this encounter Last Filed Vital Signs Vital Sign Reading Time Taken Comments Blood Pressure 137/69 07/10/2016 1:25 PM EDT Pulse 69 07/10/2016 1:25 PM EDT Temperature - - Respiratory Rate - - Oxygen Saturation - - Inhaled Oxygen Concentration - - Weight 142 kg (313 lb) 07/10/2016 1:25 PM EDT Height 165.1 cm (5' 5) 07/10/2016 1:25 PM EDT Body Mass Index 52.09 07/10/2016 1:25 PM EDT documented in this encounter Patient Instructions Patient InstructionsDiane Serra APPRENTICE PATTERN MAKER - 07/10/2016 1:30 PM EDT Check for water classes Try to eat more vegetables daily canagliflozin 300 mg daily (invokana) Make certain that you drink enough water daily Donate unused insulin to [facility] in [place] documented in this encounter Progress Notes Diane Serra APRN - 07/10/2016 1:30 PM EDT REASON FOR VISIT: Followup type-2 DM in continued poor control. Also, hypertension in good control, morbid obesity. BRIEF HISTORY: Presents and states she expects hemoglobin A1c to be about the same. SBGM 1 time a day usually fasting. DIABETES REGIMEN: Lantus 42 units in p.m., sitagliptin 100 mg daily, glimepiride 4 mg twice a day. COMPLICATIONS: Chronic kidney disease. [id number] MEAL PLAN: Breakfast was a banana nut muffin. Lunch was peanut butter crackers. Evening meal was macaroni and cheese and sausages. Occasionally snacks on ice cream. PHYSICAL ACTIVITY: Not much. Ambulates with assistance of a wheeled walker. Uses oxygen when needed. PAST SURGICAL HISTORY: Lung cancer; had left lung removed. REVIEW OF SYSTEMS: Depression and mood: At home is her son who has schizophrenia and type-2 DM. Enjoys time with her young granddaughter every other week. Eyes: Has had cataracts removed. No recent vision changes. No recent chest pain. When she has shortness of breath she uses oxygen. PHYSICAL EXAM: Appearance: She is obese with a very large central girth. Weight 313 pounds, same as it has been. Blood pressure 137/69. Pleasant and talkative with good eye contact. Eyes: No retinopathy with green light exam. Neck: No thyromegaly. Heart: Regular rate and rhythm. Right lung sounds are clear to auscultation. Feet: Skin is normal. Pulses are normal. Neuro: Normal sensation to 10 Gs of pressure. Hemoglobin A1c 8.6%, previous was 8.4%. GRF is 50. IMPRESSION AND PLAN: DM type-2 in continued poor control. Discussed options of adding another class of medicines. She had side effects from GLP1 Byetta. We will add canagliflozin 300 mg daily. Prescription sent. Discussed the importance of drinking enough water daily. May need to increase the dose of Lantus to 45 units to get fasting glucose level closer to 130. Patient states she would love to try doing pool exercises when she is at the [facility]. Advised her to check into the availability. She has never used her Apidra. Advised her to consider donating that to the [facility]. Encouraged to try to eat more vegetables daily. She states she is too lazy to cook the vegetables. Informed her of the [facility] of [facility] but she states she is not interested in that at this time. Return to office in 6 months. Will check hemoglobin A1c and creatinine. Advised 1 week to check glucose levels before evening meal and alternate with the next week checking once daily before breakfast. Recent Results (from the past 72 hour(s)) Creatinine Result Value Ref Range Creatinine 1.10 0.70 - 1.20 mg/dL Estimated GFR 50 (L) >=60 Hemoglobin A1c Result Value Ref Range Hemoglobin A1C 8.6 (H) 4.3 - 5.6 % Est Avg Gluc 200 mg/dL documented in this encounter Plan of Treatment Upcoming Encounters Date Type Specialty Care Team Description 04/04/2022 Office Visit Dermatology Celena Salazar MD [facility] [address] THERESE LEOS-DERMAT [place], [place] [address] (Wo rk) documented as of this encounter Results (ABNORMAL) Hemoglobin A1c (01/14/2017 10:45 AM EDT) Analysis Performed At [facility] Time Signature Hemoglobin A1C 7.5 (H) 4.3 - 5.6 [facility] Comment: Reference Range: 4.3 - [...] Mellitus, Diabetes Care 2013; 36: Suppl. 1, S67-64 Est Avg Gluc 169 mg/dL [facility] Comment: eAG equivalents for HbA1c percentages: HbA1c(%) ?eAG(mg/dL) 6.0 ?126 6.5 ?140 7.0 ?154 7.5 ?169 8.0 ?183 8.5 ?197 9.0 ?212 9.5 ?226 10.0 ? 240 Limitations: The eAG calculation has not been validated on women, individuals below 18 years old and above 70 years old, and individuals with hemoglobinopathies. Additional resources are available on [facility] ADA website. Chevy PARTIDA, Jr J, Syed R, et al. ??Tr anslating the A1C assay into estimated average glucose values. ??Diabetes Care 2008:31(8):5419-7645. Specimen Anatomical Collection Method Collection Time Receive d Time (Source) Location / / Volume Laterality Blood specimen 01/14/2017 10:45 7 (specimen) AM EDT 10:57 AM EDT Resulting Agency Comment Spec In Lab Pratik Cee MD CHEMISTRY ORDERABLES Performing Organization Address City/State/ZIP Code Phon e Number [place] [address] (ABNORMAL) Basic Metabolic Panel (non-fasting) (01/14/2017 10:45 AM EDT) athologist Signature Glucose Lvl 128 65 - 199 [facility] mg/dL [facility] Comment: Diabetes: >=200 mg/dL plus symp toms BUN 34 (H) 8 - 18 mg/dL [facility] Creatinine 1.34 (H) 0.70 - 1.20 mg/dL [facility] Comment: Please note that the pediatric reference intervals supplied above were not validated at [facility]. Results from pediatri c patients should be interpreted in conjunction to the patient's age, height and muscle mass. Sodium 140 135 - 145 mmol/L [facility] Potassium 5.4 (H) 3.5 - 5.0 mmol/L [facility] Comment: Please note: ??Patients with WBC >100,00 0 may have falsely elevated Potassium levels. ??For accurate Potassium quantif ication in these patients send serum separator tube (gold top) for subsequent determinations. ??Contact the Clinical Chemistry Laboratory if there are any qu estions. Chloride 101 98 - 107 mmol/L [facility] CO2 28 22 - 31 mmol/L [facility] Anion Gap 11 5 - 15 mmol/L [facility] Calcium 9.6 8.5 - 10.5 mg/dL [facility] Estimated GFR 39 (L) >=60 [facility] Comment: This estimated GFR [...] the following links into your internet browser. http://[employer]/DHnkdep http://[employer]/DHMCnkf Specimen Anatomical Collection Method Collection Time Receive d Time (Source) Location / / Volume Laterality Blood specimen 01/14/2017 10:45 7 (specimen) AM EDT 10:57 AM EDT Resulting Agency Comment Spec In Lab Pratik Cee MD CHEMISTRY ORDERABLES Performing Organization Address City/State/[place] [address] documented in this encounter Visit Diagnoses Diagnosis Type 2 diabetes mellitus with stage 2 ch ronic kidney disease, with long-term current use of insulin documented in this encounter Care Teams Wet Cotton Feeder Relationship Specialty Start Date End Date Gerry Hackett MD PCP - General 03/14/10 06/18/[address] [place] [address] documented as of this encounter
--- OUTSIDE RECORDS SUMMARY | 2022-02-02 00:31 | XMS_ITS | Encounter Summary ---
:1950 Author Organization [facility] [place] [address] Care Team Providers Name Role Phone Gerry Hackett MD Primary Care Provider [phone] Encounter Details Date Type Department Care Team Description 05/10/2017 Hospital Encounter Radiology Library at Diane Serra [facility]PECT[facility] [place] [address] ENDOCRINOLOGY DEPT. [phone] [place], [place] [address] (Wo rk) Social History Tobacco [...] Sig Dispensed Refills Start Date End Date lisinopril Take 15 mg by mouth 0 08/24/2014 (PRINIVIL;ZESTRIL) 30 mg daily. Tablet PROAIR HFA 90 Inhale 2 puffs into 0 02/27/2013 mcg/actuation inhaler the lungs as needed. Reported on 09/25/2016 OXYGEN-AIR DELIVERY by [facility]Non-Drug; 0 SYSTEMS (WALKABOUT 2 Combo Route) route OXYGEN SYSTEM MIS) as needed. atorvastatin (LIPITOR) 40 Take 40 mg by mouth 0 mg tablet daily. cyanocobalamin, vitamin Take 1,000 mcg by 0 B-12, 250 mcg tablet mouth daily. aspirin 81 mg EC tablet Take 81 mg by mouth 0 daily. pramoxine (PROCTOFOAM) 1 0 03/07/2010 % foam linagliptin (TRADJENTA) 5 Daily 0 04/09/2017 01/27/2019 mg Tablet insulin glulisine (APIDRA Inject 4-10 Units 15 mL 3 06/04/2019 SOLOSTAR) 100 unit/mL subcutaneously 2 Insulin Pen times daily (before meals). insulin glargine (LANTUS Inject 42 Units 45 mL 3 201605/19/2018 SOLOSTAR) 100 unit/mL pen subcutaneously nightly. linagliptin 5 mg Tablet Take 1 tablet by 90 tablet 3 201609/09/2017 mouth daily. Creatinine too high for sitagliptin glimepiride (AMARYL) 4 mg Take 1 tablet [...] 05/19/2018 (HYDRODIURIL) 25 mg mouth daily. tablet omeprazole (PRILOSEC) 20 0 03/07/2010 08/06/2017 mg capsule documented as of this encounter Plan of Treatment Upcoming Encounters Date Type Specialty Care Team Description 04/04/2022 Office Visit Dermatology Celena Salazar MD [facility] [address] [facility]ERESE LE[place], [place] [address] (Wo rk) documented as of this encounter Procedures Procedure Name Priority Date/Time Associated Comments Diagnosis FILM LIBRARY STORAGE Routine 05/10/2017 12:00 AM Results for this ONLY ULTRASOUND EST procedure ar e in STUDY the results section. documented in this encounter Results Film Library- Storage Only Ultrasound Study (05/10/2017 12:00 AM EST) Specimen (Source) Anatomical Location Collection Method / Collectio n Time Received Time / Laterality Volume Narrative THALIA - 05/10/2017 5:02 PM EST This result has an attachment that is no t available. This exam is for storage only and is aut o-finalizing. Eliana Ponce SURVEYOR GEOPHYSICAL PROSPECTING IMG FILM LIBRARY ORDERABLES Performing Organization Address City/State/ZIP Code Phon e Number [place], [place] documented in this encounter Visit Diagnoses Not on filedocumented in this encounter Care Teams Graduate Advisor Relationship Specialty Start Date End Date Gerry Hackett MD PCP - General 03/14/10 06/18/[address] [place] [address] documented as of this encounter
--- OUTSIDE RECORDS SUMMARY | 2022-02-02 00:31 | XMS_ITS | Encounter Summary ---
:1950 Author Organization [facility] Address [address] [place] [address] Care Team Providers Name Role Phone Gerry Hackett MD Primary Care Provider [phone] Encounter Details Date Type Department Care Team Description 10/29/2016 Telephone Dermatology at [facility] Melita Baltazar PA [address] [facility] [place] [address] THERESE LEOS-DERMATOLOGY [phone] [place], [place] [address] (Wo rk) Social History Tobacco Use Types Packs/Day Years Used Date Former Smoker Quit: 04/04/19 99 Smokeless Tobacco: Never Used Alcohol Use Standard Drinks/Week Comments No 0 (1 standard drink = 0.6 oz pure alcoho l) Sex Assigned at Date Recorded Not on file documented as of this encounter Miscellaneous Notes Telephone Encounter - Melita Baltazar PA - 10/29/2016 11:24 AM EDT I spoke with Pennie. She will come at 2:00 pm on Tuesday 11/07 instead of 1 pm. documented in this encounter Plan of Treatment Upcoming Encounters Date Type Specialty Care Team Description 04/04/2022 Office Visit Dermatology Celena Salazar MD [facility] [address] THERESE LEOS-DERMAT [place], [place] [address] (Wo rk) documented as of this encounter Visit Diagnoses Not on filedocumented in this encounter Care Teams Deck Cadet Relationship Specialty Start Date End Date Gerry Hackett MD PCP - General 03/14/10 06/18/[address] [place] [address] documented as of this encounter
--- OUTSIDE RECORDS SUMMARY | 2022-02-02 00:31 | XMS_ITS | Encounter Summary ---
:1950 Author Organization [facility] Address [address] [place] [address] Care Team Providers Name Role Phone GegeAmanda coombs Alba LAURENT Primary Care Provider Encounter Details Date Type Department Care Team Description 05/14/2017 Telephone [facility] [address] Social History Tobacco Use Types Packs/Day Years Used Date Former Smoker Cigarettes Quit: 04/04/19 99 Smokeless Tobacco: Never Used Alcohol Use Standard Drinks/Week Comments No 0 (1 standard drink = 0.6 oz pure alcoho l) Sex Assigned at Date Recorded Not on file documented as of this encounter Miscellaneous Notes Telephone Encounter - Ana Carrillo, RN - 05/14/2017 4:15 PM EST Patient called and wanted to speak with Diane Serra or Dr. Cee to review her Apidra dosing scale.She is having trouble remembering it. Reviewed instructions in OV note dated 01/04/16. Patient still had questions about Apidra. Wanted to know if Apidra can be taken at night with other HS meds or if she would be risking a morning BS that would be too low. Told patient I would defer to Provider. documented in this encounter Plan of Treatment Upcoming Encounters Date Type Specialty Care Team Description 04/04/2022 Office Visit Dermatology Celena Salazar MD [facility] [address] THERESE LEOS-DER[place] [address] (Wo rk) documented as of this encounter Visit Diagnoses Not on filedocumented in this encounter Care Teams Bake Room Worker Relationship Specialty Start Date End Date Amanda Barnett DO PCP - General Family Medicine 06/19/[address] [place] [address] documented as of this encounter
--- OUTSIDE RECORDS SUMMARY | 2022-02-02 00:31 | XMS_ITS | Encounter Summary ---
:1950 Author Organization [facility] [place] [address] Care Team Providers Name Role Phone Gerry Hackett MD Primary Care Provider [phone] Encounter Details Date Type Department Care Team Description 08/31/2015 Hospital Encounter XRay at [facility], Malignant neoplasm [address] [facility] [address] Delbert Ramírez MD of lung, [facility] [place] [id number] DR jan, MEDICAL ONCOLOGY unspecified part of [place] [id number] lung Social History Tobacco Use Types Packs/Day Years [...] needed. Reported on 09/25/2016 OXYGEN-AIR DELIVERY by [facility].(Non-Drug; 0 SYSTEMS (WALKABOUT 2 Combo Route) route OXYGEN SYSTEM MISC) as needed. atorvastatin (LIPITOR) 40 Take 40 mg by mouth 0 mg tablet daily. cyanocobalamin, vitamin Take 1,000 mcg by 0 B-12, 250 mcg tablet mouth daily. aspirin 81 mg EC tablet Take 81 mg by mouth 0 daily. pramoxine (PROCTOFOAM) 1 % 0 0 foam metFORMIN (GLUCOPHAGE-XR) Take 2 tablets by 60 tablet 11 10/201506/26/2016 500 mg Tablet Sustained mouth daily. Release 24 hr insulin glulisine (APIDRA Inject 4-10 Units 15 mL 3 06/201405/06/2017 SOLOSTAR) 100 unit/mL subcutaneously 2 Insulin Pen times daily (before meals). Blood Sugar Diagnostic 1 each by Other 300 each 3 11/12/19 14 01/04/2016 test strip route 3 times daily (before meals). Dx code 250.02 Uses insulin Calcium Carbonate-Vitamin Take by mouth daily. 0 10/31/2020 D3 (CALCIUM 500 + D) 500 mg(1,250mg) -400 unit Chew insulin glargine (LANTUS Inject 40 Units 0 01/04/2016 SOLOSTAR) 100 unit/mL (3 subcutaneously mL) pen injection nightly. fluticasone-salmeterol Inhale 1 puff into 0 07/27/2019 (ADVAIR) 100-50 mcg/dose the lungs every 12 diskus inhaler hours. glimepiride (AMARYL) 4 mg Take 4 mg by mouth 0 01/04/2016 tablet every morning (before breakfast). hydrochlorothiazide Take 12.5 mg by 0 05/19/2018 (HYDRODIURIL) 25 mg tablet mouth daily. omeprazole (PRILOSEC) 20 0 03/07/2010 08/06/2017 mg capsule sitaGLIPtin (JANUVIA) 100 0 03/07/2010 01/14/2017 mg tablet documented as of this encounter Plan of Treatment Upcoming Encounters Date Type Specialty Care Team Description 04/04/2022 Office Visit Dermatology Celena Salazar MD [facility] ER DR THERESE LEOS-DERMAT [place], [place] [address] (Wo rk) documented as of this encounter Procedures Procedure Name Priority Date/Time Associated Diagnosis Comme nts XR CHEST PA AND Routine 08/31/2015 12:09 PM Malignant neoplasm Results for this LATERAL EDT of lung, unspecified procedu re are in laterality, the results unspecified part of section. lung documented in this encounter Results XR chest routine PA & lateral (08/31/2015 12:09 PM EDT) Anatomical Region Laterality Modality Chest N/A Digital Radiography Specimen (Source) Anatomical Location Collection Method / Collectio n Time Received Time / Laterality Volume Impressions 08/31/2015 1:55 PM EDT IMPRESSION: Stable radiographic appearance of the ch est status post left pneumonectomy. I have personally reviewed the image(s) and the residents interpretation and agree with the findings, Verena chamberlain 08/31/2015 1:55 PM Narrative 08/31/2015 1:55 PM EDT EXAMINATION: XR CHEST ROUTINE PA AND LATERAL CLINICAL HISTORY: hx nsclc w/ left pneum onectomy ??- disease evaluation TECHNIQUE: Standing PA and lateral views of the chest COMPARISON: 09/01/2014 chest x-ray multip le priors FINDINGS: Patient is status post left pneumonectom y with opacification of left hemithorax, ipsilateral deviation of the trachea, an d hyperexpansion of the contralateral lung. Multiple suture clips are noted in the left upper hemithorax. The right lung is clear. Cardiomediastinal silhoue tte is obscured. No right pneumothorax or pleural effusion. No new osseous find ings. Procedure Note Verena Albright MD - 08/31/2015Formatt ing of this note might be different from the original. EXAMINATION: XR CHEST ROUTINE PA AND LAT ERAL CLINICAL HISTORY: hx nsclc w/ left pneum onectomy - disease evaluation TECHNIQUE: Standing PA and lateral views of the chest COMPARISON: 09/01/2014 chest x-ray multip le priors FINDINGS: Patient is status post left pneumonectom y with opacification of left hemithorax, ipsilateral deviation of the trachea, an d hyperexpansion of the contralateral lung. Multiple suture clips are noted in the left upper hemithorax. The right lung is clear. Cardiomediastinal silhoue tte is obscured. No right pneumothorax or pleural effusion. No new osseous find ings. IMPRESSION IMPRESSION: Stable radiographic appearance of the ch est status post left pneumonectomy. I have personally reviewed the image(s) and the residents interpretation and agree with the findings, Verena chamberlain 08/31/2015 1:55 PM Delbert Greenberg MD IMG DX ORDERABLES documented in this encounter Visit Diagnoses Diagnosis Malignant neoplasm of lung, unspecified laterality, unspecified part of lung documented in this encounter Care Teams Floodplain Manager Relationship Specialty Start Date End Date Gerry Hackett MD PCP - General 03/14/10 06/18/[address] [place] [address] documented as of this encounter
--- OUTSIDE RECORDS SUMMARY | 2022-02-02 00:31 | XMS_ITS | Encounter Summary ---
:1950 Author Organization [facility] Address [address] [place] [place] [address] Care Team Providers Name Role Phone Gerry Hackett MD Primary Care Provider [phone] Encounter Details Date Type Department Care Team Description 08/31/2015 Hospital Encounter Hematology and Maligna nt neoplasm of Oncology at [facility] lung, unspecified [address] [facility] lateralit y, unspecified [place] [address] Social History Tobacco Use Types Packs/Day [...] needed. Reported on 09/25/2016 OXYGEN-AIR DELIVERY by [facility].(Non-Drug; 0 SYSTEMS (WALKABOUT 2 Combo Route) route OXYGEN SYSTEM [place]) as needed. atorvastatin (LIPITOR) 40 Take 40 [...] Visit Dermatology Celena Salazar MD [facility] [address] THERESE LEOS-DERMAT [place], [place] [address] (Wo rk) documented as of this encounter Procedures Procedure Name Priority Date/Time Associated Comments Diagnosis HEMOGRAM STAT 08/31/2015 11:49 Malignant neoplasm Resul ts for this AM EDT of lung, procedure are i n unspecified the results laterality, section. unspecified part of lung DIFFERENTIAL, STAT 08/31/2015 11:49 Malignant neoplasm Resu lts for this AUTOMATED AM EDT of lung, procedure are i n unspecified the results laterality, section. unspecified part of lung CBC (WITH DIFF) STAT 08/31/2015 11:49 Malignant neoplasm AM EDT of lung, unspecified laterality, unspecified part of lung LACTATE DEHYDROGENASE STAT 08/31/2015 11:49 Malignant neopl asm Results for this AM EDT of lung, procedure are i n unspecified the results laterality, section. unspecified part of lung COMPREHENSIVE STAT 08/31/2015 11:49 Malignant neoplasm Resu lts for this METABOLIC PANEL AM EDT of lung, procedure ar e in (NON-FASTING) unspecified the results laterality, section. unspecified part of lung documented in this encounter Results Differential, Automated (08/31/2015 11:49 AM EDT) athologist Signature Neutrophils % 72.1 % [facility] Neutr Abs (ANC) 5.87 1.50 - [facility] 6.30 [facility] x10(3)/[facility] LABORATORY Lymphocytes % 18.7 % [facility] Lymphocytes Abs 1.5 1.0 - 3.6 [facility] x10(3)/[facility] LABORATORY Monocytes % 6.5 % [facility] Monocyte Abs 0.5 0.2 - 1.0 [facility] x10(3)/[facility] LABORATORY Eosinophils % 1.5 % [facility] Eosinophils Abs 0.1 0.0 - 0.5 [facility] x10(3)/[facility] LABORATORY Basophils % 0.7 % [facility] Basophils Abs 0.1 0.0 - 0.2 [facility] x10(3)/[facility] LABORATORY Immature Gran % 0.50 % [facility] Comment: Immature granulocytes(IG's)percentage an d absolute count will include metamyelocytes, myelocytes, and promyelo cytes. Blood smears from CBCs yielding IG's will be scanned manually for concor dance. If this scan disagrees with the automated IG or if promyelocytes are not ed, a manual differential will be performed. Shanae Gran Abs 0.04 0.00 - 0.05 x10(3)/[facility] Specimen Anatomical Collection Method Collection Time Receive d Time (Source) Location / / Volume Laterality Blood specimen 08/31/2015 11:49 6 (specimen) AM EDT 12:06 PM EDT Resulting Agency Comment Spec In Lab Delbert Greenberg MD HEMATOLOGY ORDERABLES Performing Organization Address City/State/[place] [address] (ABNORMAL) Hemogram (08/31/2015 11:49 AM EDT) P athologist Signature WBC 8.1 4.0 - 10.0 [facility] [place] x10(3)/[facility] LABORATORY RBC 3.98 3.93 - [place] 5.22 [facility] x10(6)/[facility] LABORATORY Hemoglobin 11.5 11.2 - [place] 15.7 gm/dL [facility] Hematocrit 36.1 34.0 - [place] 45.0 % [facility] MCV 90.7 79.0 - [facility] [place] 94.0 [facility] LABORATORY MCH 28.9 26.6 - [place] 32.2 pg [facility] MCHC 31.9 (L) 32.0 - [facility] 36.5 gm/dL [facility] Platelets 273 145 - 370 [employer] [facility] x10(3)/[facility] LABORATORY RDWSD 48.1 (H) 35.0 - [place] 46.0 [facility] LABORATORY RDWCV 14.5 (H) 10.9 - [place] 14.4 % [facility] MPV 10.8 9.0 - 12.0 [facility] [place] [facility] LABORATORY Specimen Anatomical Collection Method Collection Time Receive d Time (Source) Location / / Volume Laterality Blood specimen 08/31/2015 11:49 6 (specimen) AM EDT 12:06 PM EDT Resulting Agency Comment Spec In Lab Delbert Greenberg MD HEMATOLOGY ORDERABLES Performing Organization Address City/State/[place] [address] Lactate Dehydrogenase (08/31/2015 11:49 AM EDT) P athologist Signature LDH 167 110 - 220 [place] unit/L [facility] Specimen Anatomical Collection Method Collection Time Receive d Time (Source) Location / / Volume Laterality Blood specimen 08/31/2015 11:49 6 (specimen) AM EDT 12:06 PM EDT Resulting Agency Comment Spec In Lab Delbert Greenberg MD CHEMISTRY ORDERABLES Performing Organization Address City/State/[place] [address] (ABNORMAL) Comprehensive metabolic panel (non-fasting) (08/31/2015 11:49 AM EDT) athologist Signature Glucose Lvl 161 65 - 199 [facility] mg/dL [facility] Comment: Diabetes: >=200 mg/dL plus symp toms BUN 26 (H) 8 - 18 mg/dL [facility] Creatinine 1.22 (H) 0.70 - 1.20 mg/dL [facility] Comment: Please note that the pediatric reference intervals supplied above were not validated at [facility]. Results from pediatri c patients should be interpreted in conjunction to the patient's age, height and muscle mass. Sodium 139 135 - 145 mmol/L [facility] Potassium 4.9 3.5 - 5.0 mmol/L [facility] Comment: Please note: ??Patients with WBC >100,00 0 may have falsely elevated Potassium levels. ??For accurate Potassium quantif ication in these patients send serum separator tube (gold top) for subsequent determinations. ??Contact the Clinical Chemistry Laboratory if there are any qu estions. Chloride 100 98 - 107 mmol/L [facility] CO2 27 22 - 31 mmol/L [facility] Anion Gap 12 5 - 15 mmol/L [facility] Calcium 9.4 8.5 - 10.5 mg/dL [facility] Total Protein 7.4 6.1 - 8.0 gm/dL [facility] Albumin 3.8 3.2 - 5.2 gm/dL [facility] AST 6 0 - 30 unit/L [facility] Comment: Results rechecked ALT 7 0 - 30 unit/L [facility] Alk Phos 103 40 - 104 unit/L [facility] Total Bilirubin 0.2 0.2 - 1.3 mg/dL [facility] Comment: Results rechecked Bili, Direct <0.1 0.0 - 0.3 mg/dL [facility] Estimated GFR 44 (L) >=60 [facility] Comment: This estimated GFR (eGFR) [...] the following links into your internet browser. [email or web address] Specimen Anatomical Collection Method Collection Time Receive d Time (Source) Location / / Volume Laterality Blood specimen 08/31/2015 11:49 6 (specimen) AM EDT 12:06 PM EDT Resulting Agency Comment Spec In Lab Delbert Greenberg MD CHEMISTRY ORDERABLES Performing Organization Address City/State/[place] [address] documented in this encounter Visit Diagnoses Diagnosis Malignant neoplasm of lung, unspecified laterality, unspecified part of lung documented in this encounter Care Teams Military Analyst Relationship Specialty Start Date End Date Gerry Hackett MD PCP - General 03/14/10 06/18/17 [address] [place] [address] documented as of this encounter
--- OUTSIDE RECORDS SUMMARY | 2022-02-02 00:31 | XMS_ITS | Encounter Summary ---
:1950 Author Organization [facility] [place] [address] Care Team Providers Name Role Phone Gerry Hackett MD Primary Care Provider [phone] Reason for Visit Reason Comments Diabetes Encounter Details Date Type Department Care Team Description 01/14/2017 Office Visit Endocrinology at [facility] Diane Lewis, Type 2 diabetes [facility] CENTRAL OFFICE ASSOCIATE mellitus with stage 2 [facility] [place] [address] disease, with [phone] ENDOCRINOLOGY long-term curr ent use DEPT. of insulin [place] [id number] Social History Tobacco Use Types Packs/Day Years Used Date Former Smoker Cigarettes Quit: 04/04/19 99 Smokeless Tobacco: Never Used Alcohol Use Standard Drinks/Week Comments No 0 (1 standard drink = 0.6 oz pure alcoho l) Sex Assigned at Date Recorded Not on file documented as of this encounter Last Filed Vital Signs Vital Sign Reading Time Taken Comments Blood Pressure 140/77 01/14/2017 11:44 AM EDT Pulse 89 01/14/2017 11:44 AM EDT Temperature - - Respiratory Rate - - Oxygen Saturation - - Inhaled Oxygen Concentration - - Weight 139.7 kg (308 lb) 01/14/2017 11:44 AM EDT Height 165.3 cm (5' 5.08) 01/14/2017 11:44 AM EDT Body Mass Index 51.13 01/14/2017 11:44 AM EDT documented in this encounter Patient Instructions Patient InstructionsDiane Serra, CENTRAL OFFICE ASSOCIATE - 01/14/2017 11:30 AM EDT Call for levemir when lantus supply gets low Less foods that are high in potassium (bananas,strawberries) documented in this encounter Progress Notes Diane Serra APRN - 01/14/2017 11:30 AM EDT REASON FOR VISIT: Followup type 2 DM in good overall control. Also, hypertension in good control, morbid obesity. BRIEF HISTORY: Presents and states that she expects hemoglobin A1c to be lower. SBGM 1-2 times a day. DIABETES REGIMEN: Lantus 42 units in p.m., sitagliptin 50 mg daily, glimepiride 4 mg twice a day, metformin. COMPLICATIONS: Chronic kidney disease. TWENTY-FOUR HOUR MEAL PLAN: States she is trying to eat more vegetables and fruits and eat smaller portions. PHYSICAL ACTIVITY: Not much. Ambulates with assistance of a wheeled walker. Uses oxygen as needed. PAST SURGICAL HISTORY: Lung cancer; had left lung removed. REVIEW OF SYSTEMS: Depression and mood: At home is her son who has schizophrenia and he has type 2 DM. Enjoys time with her young granddaughter. Eyes: No recent vision changes. No recent headaches or chest pain. No recent GI symptoms. Appetite is good. Desires weight loss. Extremities: Has some joint pains. PHYSICAL EXAM: Appearance: She is obese with a larger central girth. Has lost 5 pounds since previous office visit. Weight today 308 pounds. Eyes: No retinopathy with green light exam. Has had cataracts removed. Neck: No thyromegaly or lymphadenopathy. Heart: Regular rate and rhythm. Lungs: Normal breath sounds on right. Feet: Skin is normal. Pulses are normal. Neuro: Normal sensation to 10 g of pressure. Hemoglobin A1c 7.5%, previous was 8.6%. Potassium is borderline high. IMPRESSION AND PLAN: DM type 2 in good control. Will stop the sitagliptin and change to Tradjenta related to creatinine. Patient states her insurance prefers Levemir but she has a supply of Lantus at this time. She will call for Levemir FlexTouch when Lantus supply is getting lower. Will consider stopping the metformin if GFR gets lower. Immunization update: High dose flu vaccine given. This was a 33-minute office visit with 25 minutes spent counseling [id number] with patient in the management of glucose levels, reviewing target glucose levels, reviewing her lab results and gave her a copy, stopping the sitagliptin and changing to Tradjenta 5 mg daily. Return to office in 3 months. Will check hemoglobin A1c, potassium, CBC, LDL, creatinine. Recent Results (from the past 72 hour(s)) Basic Metabolic Panel (non-fasting) Result Value Ref Range Glucose Lvl 128 65 - 199 mg/dL BUN 34 (H) 8 - 18 mg/dL Creatinine 1.34 (H) 0.70 - 1.20 mg/dL Sodium 140 135 - 145 mmol/L Potassium 5.4 (H) 3.5 - 5.0 mmol/L Chloride 101 98 - 107 mmol/L CO2 28 22 - 31 mmol/L Anion Gap 11 5 - 15 mmol/L Calcium 9.6 8.5 - 10.5 mg/dL Estimated GFR 39 (L) >=60 Hemoglobin A1c Result Value Ref Range Hemoglobin A1C 7.5 (H) 4.3 - 5.6 % Est Avg Gluc 169 mg/dL documented in this encounter Plan of Treatment Upcoming Encounters Date Type Specialty Care Team Description 04/04/2022 Office Visit Dermatology Celena Salazar MD [facility] DR THERESE LEOS-DERMAT [place], [place] [address] (Wo rk) documented as of this encounter Results LDL Cholesterol, Direct (05/06/2017 10:18 AM EST) P athologist Signature LDL Chol 77 <=190 [facility] [place]ARAM[place]Z [place] mg/dL [facility] Specimen Anatomical Collection Method Collection Time Receive d Time (Source) Location / / Volume Laterality Blood specimen 05/06/2017 10:18 8 (specimen) AM EST 10:28 AM EST Resulting Agency Comment Spec In Lab Diane Serra APRN CHEMISTRY ORDERABLES Performing Organization Address City/State/ZIP Code Phon e Number [place] [id number] [facility] Drive Potassium (05/06/2017 10:18 AM EST) P athologist Signature Potassium 5.0 3.5 - 5.0 [facility]/L [facility] Comment: Please note: ??Patients with WBC >100,00 0 may have falsely elevated Potassium levels. ??For accurate Potassium quantif ication in these patients send serum separator tube (gold top) for subsequent determinations. ??Contact the Clinical Chemistry Laboratory if there are any qu estions. Specimen Anatomical Collection Method Collection Time Receive d Time (Source) Location / / Volume Laterality Blood specimen 05/06/2017 10:18 8 (specimen) AM EST 10:28 AM EST Resulting Agency Comment Spec In Lab Diane Serra APRN CHEMISTRY ORDERABLES Performing Organization Address City/State/ZIP [place] [address] (ABNORMAL) Hemoglobin A1c (05/06/2017 10:18 AM EST) Analysis Performed At Patho logist Time Signature Hemoglobin A1C 8.0 (H) 4.3 - 5.6 [facility] Comment: Reference Range: 4.3 - [...] 36: Suppl. 1, S67-81 Est Avg Gluc 183 mg/dL [facility] Comment: eAG equivalents for HbA1c percentages: HbA1c(%) ?eAG(mg/dL) 6.0 ?126 6.5 ?140 7.0 ?154 7.5 ?169 8.0 ?183 8.5 ?197 9.0 ?212 9.5 ?226 10.0 ? 240 Limitations: The eAG calculation has not been validated on women, individuals below 18 years old and above 70 years old, and individuals with hemoglobinopathies. Additional resources are available on [facility] website. Chevy PARTIDA, Jr J, Syed R, et al. ??Tr anslating the A1C assay into estimated average glucose values. ??Diabetes Care 2008:31(8):3227-5737. Specimen Anatomical Collection Method Collection Time Receive d Time (Source) Location / / Volume Laterality Blood specimen 05/06/2017 10:18 8 (specimen) AM EST 10:28 AM EST Resulting Agency Comment Spec In Lab Diane Serra APRN CHEMISTRY ORDERABLES Performing Organization Address City/State/ZIP [place] [address] (ABNORMAL) Creatinine (05/06/2017 10:18 AM EST) Analysis Performed At Patho logis Time Signature Creatinine 1.50 (H) 0.70 - [facility] 1.20 mg/dL [facility] Estimated GFR 35 (L) >=60 [facility] Comment: The reported eGFR should be multiplied b y 1.2 for patients. The MDRD is not an appropriate measure o f renal function for patients with body mass extremes or in patients with acute kidney failure. http://Cloutex.MediaWorks/DHnkdep [email or web address].MediaWorks/DHMCnkf Specimen Anatomical Collection Method Collection Time Receive d Time (Source) Location / / Volume Laterality Blood specimen 05/06/2017 10:18 8 (specimen) AM EST 10:28 AM EST Resulting Agency Comment Spec In Lab Diane Serra CENTRAL OFFICE ASSOCIATE CHEMISTRY ORDERABLES Performing Organization Address City/State/ZIP Code Phon e Number [place] [id number] documented in this encounter Visit Diagnoses Diagnosis Type 2 diabetes mellitus with stage 2 ch ronic kidney disease, with long-term current use of insulin documented in this encounter Care Teams Imaging Analyst Relationship Specialty Start Date End Date Gerry Hackett MD PCP - General 03/14/10 06/18/[address] [place] [address] documented as of this encounter
--- OUTSIDE RECORDS SUMMARY | 2022-02-02 00:31 | XMS_ITS | Encounter Summary ---
:1950 Author Organization [facility] [place] [address] Care Team Providers Name Role Phone Gerry Hackett MD Primary Care Provider [phone] Reason for Visit Reason Comments Skin Lesion concerning spot on right tl ek and on nose Skin Check Consultation (Routine) - Closed Specialty Diagnoses / Procedures Referred By Contact Refer red To Contact Dermatology Diagnoses persistent face lesions Gerry Hackett MD Chapman, Michael Shane, [address] [place] [address] DAFNE HERNADEZ [facility] [address] [address] [address] Phone: Fax: Referral ID Status Reason Start Date Expiration Date Visits V isits Requested Authorized [id number] Closed Consult, Test 09/21/2015 09/20/2016 [facility] PCP Updated and/or Approved Encounter Details Date Type Department Care Team Description 2015 Office Visit Dermatology at Riaz Ward MD [facility] [address] [address] AK (actinic keratosis); Melita Castillo PA [facility] [address] [place] [address] KP (keratosis pilaris); [address] [place] [address] Social History Tobacco Use Types Packs/Day Years Used Date Former Smoker Quit: 04/04/19 99 Smokeless Tobacco: Never Used Alcohol Use Standard Drinks/Week Comments No 0 (1 standard drink = 0.6 oz pure alcoho l) Sex Assigned at Date Recorded Not on file documented as of this encounter Patient Instructions Patient InstructionsIsabella Dunham LPN - 2015 2:15 PM EDT Actinic Keratoses You have been diagnosed [...] weeks. Please contact the Dermatology clinic at [phone] if the lesion has not fully resolved after 6 weeks. Xerosis - Moisturize as much as possible Keratosis Pilaris (KP) - No intervention warranted documented in this encounter Progress Notes Melita Baltazar PA - 2015 2:15 PM EDT DERMATOLOGY - NEW PATIENT CONSULT NOTE Date of service: 2015 Pennie Rodriguez : 1950 Dermatology Physician Customer Consulting Manager Note: Melita Baltazar PA-C (Bri) Chief Complaint Patient presents with ??? Skin Lesion concerning spot on right cheek and on nose ??? Skin Check Pennie Rodriguez is a 64 y.o. female. This is a new patient to me and to the clinic. Seen in consultation at the request of Gerry Hackett specifically for the evaluation and management of the above problem. HPI: Ms. Rodriguez presents for some roughness on the nose. There is also an itchy, scaly patch with occasional tenderness on the right cheek that has been present for many years. Patient states that over the past 1-2 years it has turned purple. Ms. Rodriguez states that the lesion looks like it is spreading to her lower cheek now. Past treatment options in hopes to rid of this lesion have included Neosporin, Blistex, son's TAC- all with ill effect. There is also another rough, scaly lesion on the left cheek. Nopersonal history of skin cancer; father with NMSC on the nose. Past Skin History: Actinic keratosis (Efudex, 02/[address] Julio Leslie) Medical History: Patient Active Problem List Diagnosis Code ??? Asthma J45.909 ??? Diabetes mellitus type II E11.9 ??? Squamous cell carcinoma of lung, left C34.90 ??? Obesity E66.9 ??? Hyperlipidemia E78.5 ??? IDDM (insulin dependent diabetes mellitus) E11.9, Z79.4 ??? Myopia H52.10 ??? Presbyopia OU H52.4 ??? Pseudophakia of both eyes (OD - 03/15/15, OS - 02/15/15) Z96.1 No Defibrillator/pacemaker Yes Anti-coagulants: ASA 81mg Medications: Current Outpatient Prescriptions Medication Sig Dispense Refill ??? metFORMIN (GLUCOPHAGE-XR) 500 mg Tablet Sustained Release 24 hr Take 2 tablets by mouth daily. 60 tablet 11 ??? lisinopril (PRINIVIL;ZESTRIL) 30 mg Tablet ??? SPIRIVA WITH HANDIHALER 18 mcg Capsule, w/Inhalation Device ??? insulin glulisine (APIDRA SOLOSTAR) 100 unit/mL Insulin Pen Inject 4-10 Units subcutaneously 2 times daily (before meals). 15 mL 3 ??? Blood Sugar Diagnostic test strip 1 each by Other route 3 times daily (before meals). Dx code 250.02 Uses insulin 300 each 3 ??? PROAIR HFA 90 mcg/actuation inhaler Inhale 2 puffs into the lungs as needed. ??? OXYGEN-AIR DELIVERY SYSTEMS (WALKABOUT 2 OXYGEN SYSTEM [facility]) by [facility].(Non- Drug; Combo Route) route. ??? Calcium Carbonate-Vitamin D3 (CALCIUM 500 + D) 500 mg(1,250mg) -400 unit Chew Take by mouth 2 times daily. ??? insulin glargine (LANTUS SOLOSTAR) 100 unit/mL (3 mL) pen injection Inject 40 Units subcutaneously nightly. ??? atorvastatin (LIPITOR) 40 mg tablet Take 40 mg by mouth daily. ??? fluticasone-salmeterol (ADVAIR) 100-50 mcg/dose diskus inhaler Inhale 1 puff into the lungs every 12 hours. ??? glimepiride (AMARYL) 4 mg tablet Take 4 mg by mouth every morning (before breakfast). ??? hydrochlorothiazide (HYDRODIURIL) 25 mg tablet Take 12.5 mg by mouth daily. ??? cyanocobalamin, vitamin B-12, 250 mcg tablet Take 500 mcg by mouth daily. ??? aspirin 81 mg EC tablet Take 81 mg by mouth daily. ??? omeprazole (PRILOSEC) 20 mg capsule ??? pramoxine (PROCTOFOAM) 1 % foam ??? sitaGLIPtin (JANUVIA) 100 mg tablet (Patient taking differently: Take 1/2 tablet daily) No current facility-administered medications for this visit. Allergies: Allergies Allergen Reactions ??? Morphine Sulfate Nausea And Vomiting Family History: Father -non-melanoma skin cancer on nose No known family h/o atopy, psoriasis, or other skin disease Social/Occupational History: lives with son Retired from postal service Review of Systems: General: Denies recent illness, chills, or fever Skin: As per HPI; no other skin concerns Examination: Constitutional: Patient was pleasant, alert, well-appearing and in no noticeable distress. Skin: An abbreviated skin exam of the patient's face, neck, and arms was performed. Specific skin findings: 1. Right cheek x 3, right nasal tip x 1, nasal bridge x 1, left cheek x 1: 0.2- 0.3cm scaly irregularpink papules TOTAL: 6 2. Bilateral posterior arms: Spiny follicular based papules with slight erythema 3. Superficial desquamation present on bilateral upper extremities. Diagnosis/Assessment/Treatment Plan: 1. Actinic keratosis - Discussed premalignent potential of these lesions. - Discussed that a surgical procedure would likely be needed if these were to progress to skin cancer. - Treatment options discussed such as LN2, PDT, and 5-FU. Each treatment's pros and cons were discussed. - Shared decision to proceed with LN2 treatment at this time: Procedure: Destruction of lesions with cryotherapy. Number: 6 Location: as above - Discussed procedure and expectations including risks (including risk of hypopigmentation) and benefits. Verbal consent obtained. Frozen with LN2, 15-30 second thaw time, TWICE. There were no complications; the patient tolerated the procedure well. Post-procedure expectations and wound care were reviewed. - Advised to call if these lesions do not resolve as expected in 4-6 weeks. 2. Keratosis pilaris (KP) - Etiology discussed - Patient reassured benign nature. - Pamphlet provided 3. Xerosis cutis - Recommend patient moisturize on a daily basis LOS: 21825s RTC in 6 weeks for follow up AKs; sooner if needed. Appointment scheduled upon exiting. Instructed to call if problems arise. Patient verbally expressed understanding. I specifically asked the patient at the end of the visit if there were any further concerns or questions and the patient verbally stated there were no other concerns or questions. All questions were answered and all concerns were addressed. Patient notified that this note will be sent to referring provider. Note initiated by ISABELLA DUNHAM LPN and Cyndee Bynum Clinical Scribe I am documenting this encounter acting as the scribe for and in the presence of Melita Baltazar PA-C (Bri) I performed the above scribed service and agree with the accuracy of the documentation in this encounter. Reviewed and signed by Melita Baltazar PA-C (Bri) Dermatology [facility] Patient seen in conjunction with attending physician: Adrienne Dangelo MD Section of Dermatology [facility] A copy of this report has been sent to the referring provider either by electronic messaging or by fax. Elliott Dangelo MD - 2015 2:15 PM EDT Skin cancer examination. Mild photodamage. Many AKs. Total of 8. Cryotherapy x 2 to each of the 8 AKs. Reassured of the rest. Routine follow up. 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
--- OUTSIDE RECORDS SUMMARY | 2022-02-02 00:31 | XMS_ITS | Encounter Summary ---
:1950 Author Organization [facility] Address [address] [place] [address] Care Team Providers Name Role Phone Gerry Hackett MD Primary Care Provider [phone] Encounter Details Date Type Department Care Team Description 09/22/2015 Telephone Ophthalmology [facility] Vincent Lawler MD [facility] [phone] OPHTHALMOLOGY DEPT. [phone] [place], [place] [address] (Wo rk) Social History Tobacco [...] 04/04/2022 Office Visit Dermatology Celena Salazar MD [facility] [address] [place], [place] [address] (Wo rk) documented as of this encounter Visit Diagnoses Not on filedocumented in this encounter Care Teams Clinical Research Management Associate Relationship Specialty Start Date End Date Gerry Hackett MD PCP - General 03/14/10 06/18/17 [address] [place] [address] documented as of this encounter
--- OUTSIDE RECORDS SUMMARY | 2022-02-02 00:31 | XMS_ITS | Encounter Summary ---
:1950 Author Organization [facility] [place] [address] Care Team Providers Name Role Phone Gerry Hackett MD Primary Care Provider [phone] Encounter Details Date Type Department Care Team Description 07/10/2016 Laboratory Appointment Lab 3L [facility] 2 [facility] mellitus with stage [address] [facility] [place] [phone] Social History Tobacco Use Types Packs/Day Years [...] Visit Dermatology Celena Salazar MD [facility] [address] LE[address] [place], [place] [address] (Wo rk) documented as of this encounter Procedures Procedure Name Priority Date/Time Associated Diagnosis Comme nts CREATININE Routine 07/10/2016 12:22 PM Type 2 diabetes Resul ts for this EDT mellitus with stage 3 proced ure are in the chronic kidney results secti on. disease HEMOGLOBIN A1C Routine 07/10/2016 12:22 PM Type 2 diabetes Res ults for this EDT mellitus with stage 3 proced ure are in the chronic kidney results secti on. disease documented in this encounter Results (ABNORMAL) Hemoglobin A1c (07/10/2016 12:22 PM EDT) Analysis Performed At Patho logist Time Signature Hemoglobin A1C 8.6 (H) 4.3 - 5.6 [facility] Comment: Reference Range: 4.3 [...] Mellitus, Diabetes Care 2013; 36: Suppl. 1, S67-72 Est Avg Gluc 200 mg/dL [facility] Comment: eAG equivalents for HbA1c percentages: HbA1c(%) ?eAG(mg/dL) 6.0 ?126 6.5 ?140 7.0 ?154 7.5 ?169 8.0 ?183 8.5 ?197 9.0 ?212 9.5 ?226 10.0 ? 240 Limitations: The eAG calculation has not been validated on women, individuals below 18 years old and above 70 years old, and individuals with hemoglobinopathies. Additional resources are available on [facility] website: [email or web address] Chevy PARTIDA, Jr J, Syed R, et al. ??Tr anslating the A1C assay into estimated average glucose values. ??Diabetes Care 2008:31(8):8061-7675. Specimen Anatomical Collection Method Collection Time Receive d Time (Source) Location / / Volume Laterality Blood specimen 07/10/2016 12:22 7 (specimen) PM EDT 12:29 PM EDT Resulting Agency Comment Spec In Lab Pratik Cee MD CHEMISTRY ORDERABLES Performing Organization Address [facility] Code Phon e Number [place] [phone] (ABNORMAL) Creatinine (07/10/2016 12:22 PM EDT) athologist Signature Creatinine 1.10 0.70 - 1.20 [facility] mg/dL [facility] Comment: Please note that the pediatric reference intervals supplied above were not validated at [facility]. Results from pediatri c patients should be interpreted in conjunction to the patient's age, height and muscle mass. Estimated GFR 50 (L) >=60 [facility] [...] the following links into your internet browser. 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
--- OUTSIDE RECORDS SUMMARY | 2022-02-02 00:31 | XMS_ITS | Encounter Summary ---
:1950 Author Organization [facility] [place] [address] Care Team Providers Name Role Phone Gerry Hackett MD Primary Care Provider [phone] Reason for Visit Reason Comments Skin Check Encounter Details Date Type Department Care Team Description 12/29/2015 Office Visit Dermatology at iRaz Ward MD [facility] [address] [place] [address] Melita Baltazar PA [facility] [address] [place] [address] [address] [place] [address] Social History Tobacco Use Types Packs/Day Years Used Date Former Smoker Quit: 04/04/19 99 Smokeless Tobacco: Never Used Alcohol Use Standard Drinks/Week Comments No 0 (1 standard drink = 0.6 oz pure alcoho l) Sex Assigned at Date Recorded Not on file documented as of this encounter Progress Notes Melita Baltazar PA - 12/29/2015 1:30 PM EDT DERMATOLOGY - ESTABLISHED PATIENT CLINIC NOTE Date of service: 12/29/2015 Pennie Rodriguez : 1950 Dermatology Physician Drapery Cutter Machine Note: Melita Baltazar PA-C (Bri) Chief Complaint Patient presents with ??? Skin Check This is an established patient, last seen by Melita Baltazar PA-C (Bri) on 11/03/15 for full skin examination. HPI: Pennie Rodriguez presents to the clinic today for a 6 week follow up on LN2 on actinic keratosis. Patient responded well to LN2 sense last visit. Patient has 3 spots of concern today. Lesions of concern are on the left and right cheek, bridge of nose and left side of nose. No other spots of concern today. Skin History: Actinic keratosis (Efudex, 02/[address] Julio Leslie) Medical History: Past Medical History Diagnosis Date ??? Anemia After chemo but this has resolved per pt. ??? Arthritis ??? Asthma ??? COPD (chronic obstructive pulmonary disease) ??? Diabetes mellitus ??? GERD (gastroesophageal reflux disease) ??? Hoarseness Evaluated by Dr Leslie. Attributed to inhalers. ??? Hyperlipidemia ??? Hypertension ??? Lung cancer Tx surgically, XRT and chemotherapy ??? Obesity ??? Stasis dermatitis Medications: Current Outpatient Prescriptions on File Prior to Visit Medication Sig Dispense Refill ??? metFORMIN (GLUCOPHAGE-XR) [...] SYSTEMS (WALKABOUT 2 OXYGEN SYSTEM MISC) by [facility].(Non- Drug; Combo Route) route. ??? [...] well-appearing and in no noticeable distress. - Skin: An exam of the face was performed. Specific skin findings: 1. Scaly pink irregular non-tender papules -Nasal bridge x1 -Left nasal wall x1 -Right cheek x1 -Left cheek x1 Diagnosis/Assessment/Treatment Plan: 1. Actinic keratoses - Discussed premalignent potential of these lesions. - Discussed that a surgical procedure would likely be needed if these were to progress to skin cancer. - Treatment options discussed such as LN2, PDT, and 5-FU. Each treatment's pros and cons were discussed. - Shared decision to proceed with LN2 treatment at this time: Procedure: Destruction of lesion(s) with cryotherapy. Number: 4 Location: as above - Discussed procedure and expectations including risks (including risk of hypopigmentation) and benefits. Verbal consent obtained. Frozen with LN2, 15-30 second thaw time, TWICE. There were no complications; the patient tolerated the procedure well. Post-procedure expectations and wound care were reviewed. - Advised to call if these lesions do not resolve as expected in 4-6 weeks. LOS [address] RTC in 1 year. Instructed to call with questions/concerns. Patient verbally expressed understanding. I specifically asked the patient at the end of the visit if there were any further concerns or questions and the patient verbally stated there were no other concerns or questions. All questions were answered and all concerns were addressed. I have granted patient's request that this note be sent to PCP. Note initiated by Estrellita Gooden CMA I am documenting this encounter acting as the scribe for and in the presence of Melita Baltazar PA-C (Bri) I performed the above scribed service and agree with the accuracy of the documentation in this encounter. Reviewed and signed by Melita Baltazar PA-C (Bri) Dermatology [facility] Patient seen in conjunction with staff physician: Adrienne Dangelo MD Section of Dermatology [facility] Bart Dangelo MD - 12/29/2015 1:30 PM EDT Photodamage and skin cancer follow up. Remaining few lesions on face. LN2 x 2 to AKs x 2, total of 4 lesions. Not other worrisome cancer issues. Follow up 1. Patient seen in conjunction with Melita Baltazar PA-C (Bri) Signed by: BART DANGELO MD Section of Dermatology [facility] documented in this encounter Plan of Treatment Upcoming Encounters Date Type Specialty Care Team Description 04/04/2022 Office Visit Dermatology Celena Salazar MD [facility] [address] LE[address] [place], [place] [address] (Wo rk) documented as of this encounter Visit Diagnoses Diagnosis Actinic keratosis documented in this encounter Care Teams Street Contractor Relationship Specialty Start Date End Date Gerry Hackett MD PCP - General 03/14/10 06/18/[address] [place] [address] documented as of this encounter
--- OUTSIDE RECORDS SUMMARY | 2022-02-02 00:31 | XMS_ITS | Encounter Summary ---
:1950 Author Organization [facility] [place] [address] Care Team Providers Name Role Phone Gerry Hackett MD Primary Care Provider [phone] Reason for Visit Reason Comments Diabetes Encounter Details Date Type Department Care Team Description 05/06/2017 Office Visit Endocrinology at [facility] Diane Lewis, Type 2 diabetes [facility] VELVET CUTTER mellitus with stage 3 [facility] [place] [address] disease, with [phone] ENDOCRINOLOGY long-term curr ent use DEPT. of insulin [place] [id number] Social History Tobacco Use Types Packs/Day Years Used Date Former Smoker Cigarettes Quit: 04/04/19 99 Smokeless Tobacco: Never Used Alcohol Use Standard Drinks/Week Comments No 0 (1 standard drink = 0.6 oz pure alcoho l) Sex Assigned at Date Recorded Not on file documented as of this encounter Last Filed Vital Signs Vital Sign Reading Time Taken Comments Blood Pressure 134/80 05/06/2017 11:02 AM EST Pulse 93 05/06/2017 11:02 AM EST Temperature - - Respiratory Rate - - Oxygen Saturation - - Inhaled Oxygen Concentration - - Weight 138.5 kg (305 lb 6.4 oz) 05/06/2017 11:02 AM EST Height 167.6 cm (5' 6) 05/06/2017 11:02 AM EST Body Mass Index 49.29 05/06/2017 11:02 AM EST documented in this encounter Patient Instructions Patient InstructionsDiane Serra VELVET CUTTER - 05/06/2017 11:00 AM EST STOP metformin R/t GFR truvia in small amounts Target glucose between 95-130 as much as possible documented in this encounter Progress Notes Diane Serra APRN - 05/06/2017 11:00 AM EST REASON FOR VISIT: Followup type 2 DM in fair control. Also, hypertension in good control, morbid obesity. BRIEF HISTORY: Presents and states she is very concerned about her kidney function. SBGM 1 to 2 times a day. DIABETES REGIMEN: Lantus 42 units in p.m., glimepiride 4 mg twice a day, linagliptin 5 mg daily, will take Apidra bolus insulin up to 10 units 1 to 2 times a day when glucose levels are elevated, metformin twice a day. COMPLICATIONS: Chronic kidney disease. TWENTY FOUR HOUR MEAL PLAN: States she is trying to stay away from donuts and desserts and she is eating cold meat and cottage cheese and has stopped regular sodas except occasionally. PHYSICAL ACTIVITY: Not much. Ambulates with assistance of a wheeled walker. Uses oxygen as needed. PAST MEDICAL HISTORY: Lung cancer. Had left lung removed. Morbid obesity. REVIEW OF SYSTEMS: Depression and mood. Discusses some higher stress with her grown son who lives with her who has schizophrenia. States he has been living with mental illness since he was a teenager. Eyes: No recent vision changes. No recent headaches or chest pains. She does have GI symptoms. States she is trying to stop the Prilosec, but then the GERD symptoms get terrible. Appetite is good. Extremities: Has some joint pains. PHYSICAL EXAM: Appearance: She is obese with a larger central girth. Weight 305 pounds. Blood pressure 134/80. Eyes: No retinopathy with green light exam. Neck: No thyromegaly or lymphadenopathy. Heart: Regular rate, rhythm. Lungs: Breath sounds on right are clear. Feet: Skin is normal. Pulses are normal. Neuro: Normal sensation to 10 g's of pressure. Hemoglobin A1C 8.0%, previous was 7.5%. Creatinine 1.5. GFR 35. IMPRESSION AND PLAN: DM type 2. Advised to stop the metformin. May need to take the Apidra more consistently to keep glucose levels generally under 130 before meals. Gave patient copy of her lab results and reviewed them with her. Return to office in 3 months. Will check hemoglobin A1C and creatinine. Will consider referral to trekking guide if creatinine gets higher. Patient discusses some higher stress when she thinks about her son's living situation as she gets older and not able to care for her house. Recent Results (from the past 72 hour(s)) Creatinine Result Value Ref Range Creatinine 1.50 (H) 0.70 - 1.20 mg/dL Estimated GFR 35 (L) >=60 Hemoglobin A1c Result Value Ref Range Hemoglobin A1C 8.0 (H) 4.3 - 5.6 % Est Avg Gluc 183 mg/dL Potassium Result Value Ref Range Potassium 5.0 3.5 - 5.0 mmol/L LDL Cholesterol, Direct Result Value Ref Range LDL Chol Direct 77 <=190 mg/dL U Albumin/Cre Ratio Result Value Ref Range Alb/Cr Ratio, Random 19 0 - 29 mcg/mg Cr U Albumin Conc, Random 20.4 mg/L U Creatinine 105 mg/dL Urinalysis with reflex Culture Result Value Ref Range Glucose UA Negative Negative mg/dL Protein UA Negative Negative mg/dL Bilirubin UA Negative Negative mg/dL Urobilinogen UA Normal Normal mg/dL pH UA 5.0 5.0 - 8.0 Blood UA Negative Negative mg/dL Ketones UA Negative Negative mg/dL Nitrite UA Negative Negative Leukocytes UA Trace (A) Negative mcL Appearance UA Hazy (A) Clear Spec [place] UA 1.016 1.002 - 1.030 Color UA Yellow Yellow Culture Reflexed No Urinalysis Microscopic Exam Result Value Ref Range RBC UA <1 0 - 4 /HPF WBC UA 2 0 - 5 /HPF Bacteria UA Rare (A) None /HPF Squam Epith UA 2 <=4 /HPF documented in this encounter Plan of Treatment Upcoming Encounters Date Type Specialty Care Team Description 04/04/2022 Office Visit Dermatology Celena Salazar MD [facility] [address] THERESE LEOS-DERMAT [place], [place] [address] (Wo rk) documented as of this encounter Results (ABNORMAL) Creatinine (08/06/2017 11:49 AM EDT) Analysis Performed At [facility] Signature Creatinine 1.62 (H) 0.70 - [facility] 1.20 mg/dL [facility] Estimated GFR 32 (L) >=60 [facility] Comment: The reported eGFR should be multiplied b y 1.2 for patients. The MDRD is not an appropriate measure o f renal function for patients with body mass extremes or in patients with acute kidney failure. http://[employer]/DHnkdep http://[employer]/DHMCnkf Specimen Anatomical Collection Method Collection Time Receive d Time (Source) Location / / Volume Laterality Blood specimen 08/06/2017 11:49 8 (specimen) AM EDT 12:03 PM EDT Resulting Agency Comment Spec In Lab Diane Serra APRN CHEMISTRY ORDERABLES Performing Organization Address City/State/[place] [address] (ABNORMAL) Hemoglobin A1c (08/06/2017 11:49 AM EDT) Analysis Performed At [facility] Signature Hemoglobin A1C 6.4 (H) 4.3 - 5.6 [facility] Comment: Reference Range: 4.3 [...] Mellitus, Diabetes Care 2013; 36: Suppl. 1, R27-72 Est Avg Gluc 137 mg/dL [facility] Comment: eAG equivalents for HbA1c percentages: HbA1c(%) ?eAG(mg/dL) 6.0 ?126 6.5 ?140 7.0 ?154 7.5 ?169 8.0 ?183 8.5 ?197 9.0 ?212 9.5 ?226 10.0 ? 240 Limitations: The eAG calculation has not been validated on women, individuals below 18 years old and above 70 years old, and individuals with hemoglobinopathies. Additional resources are available on [facility] ADA website. Chevy PARTIDA, Jr J, Syed R, et al. ??Tr anslating the A1C assay into estimated average glucose values. ??Diabetes Care 2008:31(8):1698-7418. 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
--- OUTSIDE RECORDS SUMMARY | 2022-02-02 00:31 | XMS_ITS | Encounter Summary ---
:1950 Author Organization [facility] [place] [address] Care Team Providers Name Role Phone Amanda Barnett Alba LAURENT Primary Care Provider Encounter Details Date Type Department Care Team Description 05/28/2017 Telephone [facility] at [facility] [place] [address] Social History Tobacco Use Types Packs/Day Years Used Date Former Smoker Cigarettes Quit: 04/04/19 99 Smokeless Tobacco: Never Used Alcohol Use Standard Drinks/Week Comments No 0 (1 standard drink = 0.6 oz pure alcoho l) Sex Assigned at Date Recorded Not on file documented as of this encounter Miscellaneous Notes Telephone Encounter - Ana Carrillo RN - 05/28/2017 9:26 AM EST Images from the original note were not included. Pennie Rodriguez?? Female, 66 y.o., 1950 Weight: (!) 138.5 kg (305 lb 6.4 oz) Home: PCP: Gerry Hackett MD myD-H: Active Next Appt: 08/06/2017 ?? Message Received: 3 days ago ? Pratik Cee MD sent to Ana Carrillo RN ? Caller: Unspecified (2 weeks ago) ? In general apidra should be taken with meals and occasionally to correct a high glucose, but not routinely at bedtime ? Previous Messages ?? ----- Message ----- ? From: Ana Carrillo RN ? Sent: 05/14/2017 ?? 4:20 PM ? To: Pratik Cee MD ? Conversation (Newest Message First) Relayed message to patient. Patient is wondering if she should cut back on night time Lantus. Has been eating more nutritiously and morning blood sugars have been lower than in the past: 2/3 lxf364, 2/4 was 87, 25 was 97, 2/6 was 157. Will forward question to Provider. documented in this encounter Plan of Treatment Upcoming Encounters Date Type Specialty Care Team Description 04/04/2022 Office Visit Dermatology Celena Salazar MD [facility] DR THERESE LEOS-DERMAT [place], [place] [address] (Wo rk) documented as of this encounter Visit Diagnoses Not on filedocumented in this encounter Care Teams Sporting Goods Salesperson Relationship Specialty Start Date End Date Amanda Barnett DO PCP - General Family Medicine 06/19/[address] [place] [address] documented as of this encounter
--- OUTSIDE RECORDS SUMMARY | 2022-02-02 00:31 | XMS_ITS | Encounter Summary ---
:1950 Author Organization [facility] Address [address] [place] [address] Care Team Providers Name Role Phone Gerry Hackett MD Primary Care Provider [phone] Encounter Details Date Type Department Care Team Description 07/04/2015 Laboratory Appointment Lab at [facility] Type 2 diabetes [facility] mellitus [place] [id number] Social History Tobacco Use Types Packs/Day Years [...] Celena Salazar MD [address] [facility] [address] THERESE LEOS-DERMAT [place], [place] [address] (Wo rk) documented as of this encounter Procedures Procedure Name Priority Date/Time Associated Diagnosis Comme nts CREATININE Routine 07/04/2015 11:48 Type 2 diabetes Results for this AM EDT mellitus without procedure a re in complication the results section. LDL CHOLESTEROL, Routine 07/04/2015 11:48 Type 2 diabetes Resu lts for this DIRECT AM EDT mellitus without procedure a re in complication the results section. HEMOGLOBIN A1C Routine 07/04/2015 11:48 Type 2 diabetes Result s for this AM EDT mellitus without procedure a re in complication the results section. VITAMIN B12 Routine 07/04/2015 11:48 Type 2 diabetes Results for this AM EDT mellitus without procedure a re in complication the results section. documented in this encounter Results (ABNORMAL) Vitamin B12 (07/04/2015 11:48 AM EDT) Analysis Performed At Patho logist Time Signature Vitamin B-12 1,461 (H) 207 - 625 [facility] pg[facility]mL [facility] Specimen Anatomical Collection Method Collection Time Receive d Time (Source) Location / / Volume Laterality Blood specimen 07/04/2015 11:48 6 (specimen) AM EDT 12:03 PM EDT Resulting Agency Comment Spec In Lab Pratik Cee MD CHEMISTRY ORDERABLES Performing Organization Address City/[facility]/[place] [address] LDL Cholesterol, Direct (07/04/2015 11:48 AM EDT) P athologist Signature LDL Chol 79 <=99 mg/dL [facility] Comment: The National Cholesterol Education Progr am (NCEP) has set the following guidelines for LDL Cholesterol: Reference range: ?? Optimal: ?<100 mg/dL ?? Near Optimal/Above Optimal: ?? 100-1 29 mg/dL ?? Borderline high: ?130-159 mg/dL ?? High: ? 160-189 mg/dL ?? Very high: ?>oh=648 mg/dL ARIADNE 2001: 285(19):5608-0315 Specimen Anatomical Collection Method Collection Time Receive d Time (Source) Location / / Volume Laterality Blood specimen 07/04/2015 11:48 6 (specimen) AM EDT 12:02 PM EDT Resulting Agency Comment Spec In Lab Pratik Cee MD CHEMISTRY ORDERABLES Performing Organization Address City/[facility]/[place] [address] (ABNORMAL) Hemoglobin A1c (07/04/2015 11:48 AM EDT) Analysis Performed At Patho logist Time Signature Hemoglobin A1C 9.0 (H) 4.3 - 5.6 [facility] Comment: Reference Range: 4.3 - 5.6% 5.7 - 6.4% - Increased Risk of Developin g Diabetes Mellitus 6.5% - Consistent with diagnosis of Diab etes Mellitus In the absence of hyperglycemia (i.e. pl asma glucose > 200 mg/dL) or classic symptoms of hyperglycemia a repeat measu rement of HbA1c should be performed on a separate sample to confirm the diagnos is. Diagnosis and Classification of Diabetes Mellitus, Diabetes Care 2013; 36: Suppl. 1, S67-74 Est Avg Gluc 212 mg/dL [facility] Comment: eAG equivalents for HbA1c percentages: HbA1c(%) ?eAG(mg/dL) 6.0 ?126 6.5 ?140 7.0 ?154 7.5 ?169 8.0 ?183 8.5 ?197 9.0 ?212 9.5 ?226 10.0 ? 240 Limitations: The eAG calculation has not been validated on women, individuals below 18 years old and above 70 years old, and individuals with hemoglobinopathies. Additional resources are available on [facility] website: http://[employer]/DHMCadacalc Chevy PARTIDA, Jr Spencer, Syed R, et al. ??Tr anslating the A1C assay into estimated average glucose values. ??Diabetes Care 2008:31(8):0990-7046. Specimen Anatomical Collection Method Collection Time Receive d Time (Source) Location / / Volume Laterality Blood specimen 07/04/2015 11:48 6 (specimen) AM EDT 12:03 PM EDT Resulting Agency Comment Spec In Lab Pratik Cee MD CHEMISTRY ORDERABLES Performing Organization Address City/[facility]/[place] [address] (ABNORMAL) Creatinine (07/04/2015 11:48 AM EDT) athologist Signature Creatinine 1.21 (H) 0.70 - [facility] 1.20 mg/dL [facility] Comment: Please note that the pediatric reference intervals supplied above were not validated at [facility]. Results from pediatri c patients should be interpreted in conjunction to the patient's age, height and muscle mass. Estimated GFR 45 (L) >=60 [facility] Comment: [...] the following links into your internet browser. http://[employer]/DHnkdep http://[employer]/DHMCnkf Specimen Anatomical Collection Method Collection Time Receive d Time (Source) Location / / Volume Laterality Blood specimen 07/04/2015 11:48 6 (specimen) AM EDT 12:02 PM EDT Resulting Agency Comment Spec In Lab Pratik Cee MD CHEMISTRY ORDERABLES Performing Organization Address City/[facility]/[place] [address] documented in this encounter Visit Diagnoses Diagnosis Type 2 diabetes mellitus without complic ation documented in this encounter Care Teams Live In Housekeeper Relationship Specialty Start Date End Date Gerry Hackett MD PCP - General 03/14/10 06/18/17 [address] [place] [address] documented as of this encounter
--- OUTSIDE RECORDS SUMMARY | 2022-02-02 00:31 | XMS_ITS | Encounter Summary ---
:1950 Author Organization [facility] [place] [address] Care Team Providers Name Role Phone Gerry Hackett MD Primary Care Provider [phone] Reason for Visit Reason Onset Date Comments Medication Refill 01/14/2017 Encounter Details Date Type Department Care Team Description 01/14/2017 Refill Endocrinology at [facility] C Jess Martinez, [place] [address] Social History Tobacco Use Types Packs/Day Years Used Date Former Smoker Cigarettes Quit: 04/04/19 99 Smokeless Tobacco: Never Used Alcohol Use Standard Drinks/Week Comments No 0 (1 standard drink = 0.6 oz pure alcoho l) Sex Assigned at Date Recorded Not on file documented as of this encounter Miscellaneous Notes Telephone Encounter - Jess Martinez, RN - 01/14/2017 4:36 PM EDT Pennie calls in and left message she needs script for linagliptin sent to [facility] documented in this encounter Plan of Treatment Upcoming Encounters Date Type Specialty Care Team Description 04/04/2022 Office Visit Dermatology Celena Salazar MD [facility] [address] THERESE LEOS-DERMAT [place], [place] [address] (Wo rk) documented as of this encounter Visit Diagnoses Not on filedocumented in this encounter Care Teams Agricultural Scientist Relationship Specialty Start Date End Date Gerry Hackett MD PCP - General 03/14/10 06/18/[address] [place] [address] documented as of this encounter
--- OUTSIDE RECORDS SUMMARY | 2022-02-02 00:31 | XMS_ITS | Encounter Summary ---
:1950 Author Organization [facility] [place] [address] Care Team Providers Name Role Phone Amanda Barnett DO Primary Care Provider Reason for Visit Reason Comments Skin Lesion Encounter Details Date Type Department Care Team Description 06/19/2017 Office Visit Dermatology at Fl[facility] Gallegos MD [facility] [address] THERESE LEOS-DERMATOLOGY [place] [id number] [place] ([address] Melita Baltazar PA [facility] [place] [address] keratosis) [address] [place] [address] Social History Tobacco Use Types Packs/Day Years Used Date Former Smoker Cigarettes Quit: 04/04/19 99 Smokeless Tobacco: Never Used Alcohol Use Standard Drinks/Week Comments No 0 (1 standard drink = 0.6 oz pure alcoho l) Sex Assigned at Date Recorded Not on file documented as of this encounter Progress Notes Melita Baltazar PA - 06/19/2017 2:00 PM EST DERMATOLOGY - ESTABLISHED PATIENT CLINIC NOTE Date of service: 06/19/2017 Pennie Rodriguez : 1950 Dermatology Physician Fiberglass Laminator Note: Melita Baltazar PA-C (Bri) Chief Complaint Patient presents with ??? Skin Lesion This is an established patient, last seen by myself on 11/07/2016 for a full skin check. HPI: Pennie Rodriguez is a 66 y.o. female who presents for a spot check for a lesion on her nose that started as a hard bump, then flattened out and started bleeding after she picked at it about a week ago. Skin History: Actinic keratosis (Efudex, 02/2010 by [...] Visit Medication Sig Dispense Refill ??? insulin glulisine (APIDRA SOLOSTAR) 100 unit/mL Insulin Pen Inject 4-10 Units subcutaneously 2 times daily (before meals). 15 mL 3 ??? insulin glargine (LANTUS SOLOSTAR) 100 unit/mL pen Inject 42 Units subcutaneously nightly. 45 mL3 ??? linagliptin 5 mg Tablet Take 1 tablet by mouth daily. Creatinine too high for sitagliptin 90 tablet 3 ??? glimepiride (AMARYL) 4 mg Tablet Take 1 tablet by mouth 2 times daily (before meals). 180 tablet3 ??? fluorouracil (EFUDEX) 5 % Cream apply to affected areas mentioned above BID for 2-3 weeks. (Patient not taking: Reported on 01/14/2017) 40 g 0 ??? lisinopril (PRINIVIL;ZESTRIL) 30 mg Tablet Take 30 mg by mouth daily. ??? SPIRIVA WITH HANDIHALER 18 mcg Capsule, w/Inhalation Device ??? PROAIR HFA 90 mcg/actuation inhaler Inhale 2 puffs into the lungs as needed. Reported on 09/25/2016 ??? OXYGEN-AIR DELIVERY SYSTEMS (WALKABOUT 2 OXYGEN SYSTEM MISC) by [facility].(Non- Drug; Combo Route) route. ??? Calcium Carbonate-Vitamin [...] in no noticeable distress. - Skin exam: A focused skin exam of the concerning spot was performed. Diagnosis/Assessment/Treatment Plan: 1. Likely actinic keratosis - Central nasal bridge: scaly irregular pink papule. - Discussed treatment options. Patient elects Efudex treatment and she still has some cream at home. - Instructed patient to apply to the spot on the nose BID for 2-3 weeks. LOS: [id number] Follow up in August at next scheduled visit on 08/27/17. Patient verbally expressed understanding. I specifically asked [...] signed by Melita Baltazar PA-C (Bri) Dermatology [facility] Patient seen in conjunction with staff physician: Daryn Hansen MD Section of Dermatology [facility] Daryn Hansen MD - 06/19/2017 2:00 PM EST Patient seen and examined with Christina Baltazar PA-C. We reviewed the patient's history. I personally examined the patient. We discussed the assessment and plan. Specifically, ?? Expand All Collapse All I have seen and examined this patient.?? I evaluated the skin findings: ??- I noted lesion most c/w AK on nasal bridge. I went over the patient's history and discussed the symptoms. I discussed recommendations and therapeutic measures. ??- I agree with treatment with 5FU We will see the patient back as planned; they will call if problems arise. Patient seen in conjunction with Melita Baltazar PA-C (Bri) Signed by: DARYN HANSEN MD Section of Dermatology [facility] documented in this encounter Plan of Treatment Upcoming Encounters Date Type Specialty Care Team Description 04/04/2022 Office Visit Dermatology Celena Salazar MD [facility] [address] THERESE LEOS-DERMAT [facility] [place] [address] (Wo rk) documented as of this encounter Visit Diagnoses Diagnosis AK (actinic keratosis) Actinic keratosis documented in this encounter Care Teams Cotton Grower Relationship Specialty Start Date End Date Amanda Barnett DO PCP - General Family Medicine 06/19/[address] [place] [address] documented as of this encounter
--- OUTSIDE RECORDS SUMMARY | 2022-02-02 00:31 | XMS_ITS | Encounter Summary ---
:1950 Author Organization [facility] [place] [address] Care Team Providers Name Role Phone Gerry Hackett MD Primary Care Provider [phone] Encounter Details Date Type Department Care Team Description 05/03/2017 Orders Only Endocrinology at [facility] Diane Lewis, Type 2 diabetes mellitus wit hout complication, [facility] [place] [facility] insulin use status; [facility] Martha galan APR[place] [id number] [facility] [phone] CENTER ENDOCRINOLOGY DEPT. [place], [place] [address] Social History Tobacco Use Types [...] Celena Salazar MD [facility] [address] [place], [place] [address] (Wo rk) documented as of this encounter Results (ABNORMAL) Urinalysis with reflex Culture (05/06/2017 10:26 AM EST) [facility] Method Time Signature Glucose UA Negative Negative PIERRE LEONA mg/dL [facility] Protein UA Negative Negative PIERRE LEONA mg/dL [facility] Bilirubin UA Negative Negative [facility] mg/dL [facility] Comment: Clinical correlation required for positi ve Urine Bilirubin results as false positive may occur with some drugs and d rug related products. If a false positive is suspected a serum total bili rivers should be considered if clinically indicated. Urobilinogen UA Normal Normal mg/dL [facility] pH UA 5.0 5.0 - 8.0 [facility] Blood UA Negative Negative mg/dL [facility] Ketones UA Negative Negative mg/dL [facility] Nitrite UA Negative Negative [facility] Leukocytes UA Trace (A) Negative [facility] Appearance UA Hazy (A) Clear [facility] Spec [place] UA 1.016 1.002 - 1.030 [facility] Color UA Yellow Yellow [facility] Culture Reflexed No [facility] Specimen (Source) Anatomical Collection Method Collection Time Re ceived Time Location / / Volume Laterality Urine specimen 05/06/2017 10:26 8 obtained by clean AM EST 10:[address] catch procedure (specimen) Resulting Agency Comment Spec In Lab Eliana Luisadaija DARCI URINE ORDERABLES Performing Organization Address City/State/[place] [address] U Albumin/Cre Ratio (05/06/2017 10:26 AM EST) P athologist Signature Alb/Cr Ratio, 19 0 - 29 [facility] Random mcg/mg Cr [facility] Comment: Reference Ranges: <30 mcg/mg: [...] 2, 357? 362 U Albumin Conc, Random 20.4 mg/L [facility] U Creatinine 105 mg/dL [facility] Specimen Anatomical Collection Method Collection Time Receive d Time (Source) Location / / Volume Laterality Urine specimen 05/06/2017 10:26 8 (specimen) AM EST 10:35 AM EST Resulting Agency Comment Spec In Lab Diane Serra APRN URINE ORDERABLES Performing Organization Address City/State/[place] [address] documented in this encounter Visit Diagnoses Diagnosis Type 2 diabetes mellitus without complic ation, unspecified [facility] insulin use status Frequency of urination Urinary frequency documented in this encounter Care Teams Electronic Resources Librarian Relationship Specialty Start Date End Date Gerry Hackett MD PCP - General 03/14/10 06/18/[address] [place] [address] documented as of this encounter
--- OUTSIDE RECORDS SUMMARY | 2022-02-02 00:31 | XMS_ITS | Encounter Summary ---
:1950 Author Organization [facility] [place] [address] Care Team Providers Name Role Phone Amanda Barnett DO Primary Care Provider Reason for Visit Consultation (Routine) - Closed Specialty Diagnoses / Procedures Referred By Contact Refer red To Contact Nephrology Diagnoses type 2 diabetes mellitus with stage 3 chronic kidney disease Elevated serum creatinine secondary anemia Amanda Barnett DO [facility] [address] [place] [phone] Referral ID Status Reason Start Date Expiration Date Visits V isits Requested Authorized [id number] Closed Consult, 08/18/2017 08/18/2018 1 1 [facility] Encounter Details Date Type Department Care Team Description 09/09/2017 Office Visit Nephrology Justice CKD (chronic ki dney disease) stage 3, GFR 30-59 ml/min; Hypertension at [facility] MD Denilson Gastroesophageal reflux disease with eso phagitis [facility]ly [facility] DR Daly [place] NEPHROLOGY DEPT. [id number] [place], [place] [phone] Social History Tobacco Use Types Packs/Day Years Used Date Former Smoker Cigarettes Quit: 04/04/19 99 Smokeless Tobacco: Never Used Alcohol Use Standard Drinks/Week Comments No 0 (1 standard drink = 0.6 oz pure alcoho l) Sex Assigned at Date Recorded Not on file documented as of this encounter Last Filed Vital Signs Vital Sign Reading Time Taken Comments Blood Pressure 108/58 09/09/2017 8:27 AM EDT Pulse 84 09/09/2017 8:27 AM EDT Temperature - - Respiratory Rate - - Oxygen Saturation - - Inhaled Oxygen Concentration - - Weight 125.2 kg (276 lb) 09/09/2017 8:27 AM EDT Height 166.4 cm (5' 5.5) 09/09/2017 8:27 AM EDT Body Mass Index 45.23 09/09/2017 8:27 AM EDT documented in this encounter Progress Notes Denilson Rendon MD - 09/09/2017 8:30 AM EDT 66 y/o woman seen at the request of for increasing serum creatinine The patient has mild renal insufficiency for a number of years, since last her serum creatinine has been rising without a clear cause, no illness, no radiocontrast, no antibiotics reported No urine changes observed, goes about 4x per night unchanged for years Was taken off Metformin and Prilosec in April Lisinopril was decreased 2-3 months ago because of feeling dizzi Has lost weight and worked hard on her dit Low back pain, uses Advil once a while Uses about 5 Tums a day, has a third of a a jar of cottage cheese daily plus several georgian yogurts Previous renal imagin05/10/17 renal ultrasound normal size, bladder volume 35ml Previous labs: 07/17/17 Hb 10.9 creat 1.65 BUN 43 Na 139 K 4.6 CO2 29.7 Cl 102 Ca 10.7 glu 16 11/06/16 microalb 16.7mcg/mg Past Medical Hx: Diabetes mellitus S/p pneumonectomy and adjuvent chemotherapy carboplatin 13 years ago Osteoarthritis GERD HTN hyprlipidemia COPD Cataract surgery Fam Hx: No family history of renal disease Soc Hx: , no tobacco since quit 1996, no alcohol R/S: Good appetite, dyspnea on exertion, has heartburn, some diarrhea, no fever, no chills, no headaches,no vision changes, no chest pain, no palpitations, no dysuria, no swelling, no rash, no vision changes, the remaining review of systems was negative Medications: Current Outpatient Prescriptions: ??? calcium carbonate (TUMS) 200 mg calcium (500 mg) Tablet, Chewable, Take 1 tablet by mouth 3 times daily., Disp: , Rfl: ??? insulin glulisine (APIDRA [...] OXYGEN-AIR DELIVERY SYSTEMS (WALKABOUT 2 OXYGEN SYSTEM [facility]), by [facility].(Non- Drug; Combo Route) route., Disp: , Rfl: [...] % foam, , Disp: , Rfl: ??? SPIRIVA WITH HANDIHALER 18 mcg Capsule, w/Inhalation Device, Inhale into the lungs daily., Disp:, Rfl: Allergies Allergen Reactions ??? Byetta [Exenatide] STOMACH CRAMPS ??? Metformin Diarrhea ??? Morphine Sulfate Nausea And Vomiting Physical exam: Most Recent Vitals: 09/09/17 0827 BP: 108/58 Pulse: 84 PainSc: 0 - No pain obese Normal color No lymphadenopathy Lungs clears, mildly decreased breathing sounds left thorax Heart regular rhythm, no rub, no murmur Abdomen soft, non tender Limbs discreet trace edema, varicose veins, no clubbing, no palmar erythema No tremor, no asterixes U/A: 1.020 pH 5 lase trace prot neg blood neg Urine sediment: rare epithelial cells Labs: Results for PENNIE RODRIGUEZ ( ) as of 09/11/2017 15:49 Ref. Range 09/09/2017 08:30 09/09/2017 10:11 09/09/2017 10:11 WBC Latest Ref Range: 4.0 - 9.5 x10(3)/mcL 9.8 (H) RBC Latest Ref Range: 4.00 - 5.21 x10(6)/mcL 3.75 (L) Hemoglobin Latest Ref Range: 11.7 - 15.5 gm/dL 10.9 (L) Hematocrit Latest Ref Range: 35.7 - 45.8 % 34.7 (L) MCV Latest Ref Range: 82.6 - 94.4 fL 92.5 MCH Latest Ref Range: 27.1 - 32.0 pg 29.1 MCHC Latest Ref Range: 31.7 - 35.0 gm/dL 31.4 (L) RDWSD Latest Ref Range: 37.0 - 46.0 fL 46.8 (H) RDWCV Latest Ref Range: 11.5 - 14.1 % 13.9 Platelets Latest Ref Range: 145 - 357 x10(3)/mcL 273 MPV Latest Ref Range: 7.6 - 12.9 fL 10.4 nRBC % Auto Latest Units: % 0.0 nRBC Abs Auto Latest Ref Range: 0.000 - 0.000 x10(3)/mcL 0.000 Neutr Abs (ANC) Latest Ref Range: 1.70 - 6.10 x10(3)/mcL 7.16 (H) Neutrophils % Latest Units: % 73.1 Immature Gran % Latest Units: % 0.70 Lymphocytes % Latest Units: % 17.6 Monocytes % Latest Units: % 6.9 Eosinophils % Latest Units: % 1.0 Basophils % Latest Units: % 0.7 Shanae Gran Abs Latest Ref Range: 0.00 - 0.04 x10(3)/mcL 0.07 (H) Lymphocytes Abs Latest Ref Range: 0.9 - 3.2 x10(3)/mcL 1.7 Monocyte Abs Latest Ref Range: 0.3 - 0.9 x10(3)/mcL 0.7 Eosinophils Abs Latest Ref Range: 0.0 - 0.4 x10(3)/mcL 0.1 Basophils Abs Latest Ref Range: 0.0 - 0.1 x10(3)/mcL 0.1 Sodium Latest Ref Range: 135 - 145 mmol/L 139 Potassium Latest Ref Range: 3.5 - 5.0 mmol/L 4.4 Chloride Latest Ref Range: 98 - 107 mmol/L 101 CO2 Latest Ref Range: 22 - 31 mmol/L 25 Anion Gap Latest Ref Range: 5 - 15 mmol/L 13 BUN Latest Ref Range: 8 - 18 mg/dL 50 (H) Creatinine Latest Ref Range: 0.70 - 1.20 mg/dL 1.48 (H) Estimated GFR Latest Ref Range: >=60 35 (L) Glucose Lvl Latest Ref Range: 65 - 199 mg/dL 117 Calcium Latest Ref Range: 8.5 - 10.5 mg/dL 10.7 (H) 10.7 (H) Phosphorus Latest Ref Range: 2.5 - 4.5 mg/dL 3.8 Albumin Latest Ref Range: 3.2 - 5.2 gm/dL 3.9 Total Prot Elec Latest Ref Range: 6.1 - 8.0 gm/dL 6.7 Albumin Elect Latest Ref Range: 3.60 - 6.00 gm/dL 4.00 Alpha1-Globulin Latest Ref Range: 0.10 - 0.30 gm/dL 0.17 Alpha2-Globulin Latest Ref Range: 0.40 - 0.90 gm/dL 0.87 Beta Globulin Latest Ref Range: 0.50 - 1.00 gm/dL 0.75 Gamma Globulin Latest Ref Range: 0.50 - 1.30 gm/dL 0.91 M1 Band Unknown None Detected PTH Latest Ref Range: 15 - 65 pg/mL 10 (L) Alb/Cr Ratio, Random Latest Ref Range: 0 - 29 mcg/mg Cr 10 U Albumin Conc, Random Latest Units: mg/L 8.0 U Creatinine Latest Units: mg/dL 84 A/P: Stage 3 CKD since several years with a recent increase of serum creatinine of unclear etiology Metformin and Perilosec were stopped and Lisinopril reduced The patient has a normal urine sediment with no microalbuminuria which are favorable prognostic factors Her BP is well controlled Possible effect of NSAIDS as patient also taking Lisinopril and hence susceptible to drug interaction of these two medications An SPEP was negative for paraprotein possible milk alkali syndrome as patient has high calcium and vitamin D intake, a repeat calcium level was elevated The patient was called and advised to hold Tums and have only one calcium/vitamin D per day, Prilosec could have induced AIN,however, normal urine sediment would be unusual, ordered cimetidine for heartburn instead Risk factors for worsening renal function were discussed Called patient with lab results [id number] RTC in 6 months with labs documented in this encounter Plan of Treatment Upcoming Encounters Date Type Specialty Care Team Description 04/04/2022 Office Visit Dermatology Celena Salazar MD [facility] [address] THERESE LEOS-DERMAT [place], [place] [address] (Wo rk) Scheduled Orders Name Type Priority Associated Diagnoses Order S chedule CBC (with Diff) Lab STAT CKD (chronic kidney disea se) Expected: 12/12/2017 stage 3, GFR 30- 59 ml/min (Approximate), Expires: Gastroesophageal reflux 08/21 disease with esophagitis documented as of this encounter Procedures Procedure Name Priority Date/Time Associated Comments Diagnosis PTH Routine 09/09/2017 10:11 AM CKD (chronic kidney R esults for this EDT disease) stage 3, procedure are in GFR 30-59 ml/min the results section. HEMOGRAM Routine 09/09/2017 10:11 AM CKD (chronic kidney R esults for this EDT disease) stage 3, procedure are in GFR 30-59 ml/min the results section. DIFFERENTIAL, Routine 09/09/2017 10:11 AM CKD (chronic kidney Results for this AUTOMATED EDT disease) stage 3, procedure are in GFR 30-59 ml/min the results section. CBC (WITH DIFF) Routine 09/09/2017 10:11 AM CKD (chronic kidne y EDT disease) stage 3, GFR 30-59 ml/min PROTEIN Routine 09/09/2017 10:11 AM CKD (chronic kidney R esults for this ELECTROPHORESIS, EDT disease) stage 3, proced ure are in SERUM GFR 30-59 ml/min the results section. PHOSPHORUS Routine 09/09/2017 10:11 AM CKD (chronic kidney R esults for this EDT disease) stage 3, procedure are in GFR 30-59 ml/min the results section. CALCIUM Routine 09/09/2017 10:11 AM CKD (chronic kidney R esults for this EDT disease) stage 3, procedure are in GFR 30-59 ml/min the results section. ALBUMIN LEVEL Routine 09/09/2017 10:11 AM CKD (chronic kidney Results for this EDT disease) stage 3, procedure are in GFR 30-59 ml/min the results section. BASIC METABOLIC Routine 09/09/2017 10:11 AM CKD (chronic kidne y Results for this PANEL (NON-FASTING) EDT disease) stage 3, pro cedure are in GFR 30-59 ml/min the results section. U ALBUMIN/CRE RATIO Routine 09/09/2017 8:30 AM CKD (chronic ki dney Results for this EDT disease) stage 3, procedure are in GFR 30-59 ml/min the results section. documented in this encounter Results Phosphorus (12/31/2017 2:12 PM EDT) P athologist Signature Phosphorus 3.0 2.5 - 4.5 PIERRE DELGADILLO mg/dL [facility] Specimen Anatomical Collection Method Collection Time Receive d Time (Source) Location / / Volume Laterality Blood specimen 12/31/2017 2:12 PM 018 2:19 (specimen) EDT PM EDT Resulting Agency Comment Spec In Lab Denilson Rendon MD CHEMISTRY ORDERABLES Performing Organization Address City/State/[place] [address] [facility] [address] PTH (12/31/2017 2:12 PM EDT) P athologist Signature PTH 56 15 - 65 [facility] pg/mL [facility] Specimen Anatomical Collection Method Collection Time Receive d Time (Source) Location / / Volume Laterality Blood specimen 12/31/2017 2:12 PM 018 2:19 (specimen) EDT PM EDT Resulting Agency Comment Spec In Lab Denilson Rendon MD CHEMISTRY ORDERABLES Performing Organization Address City/State/ZIP Code Phon e Number [place] [phone] [facility] [address] (ABNORMAL) Differential, Automated (09/09/2017 10:11 AM EDT) Patholo gist Method Time Signature Neutrophils % 73.1 % [facility] Neutr Abs (ANC) 7.16 (H) 1.70 - [facility] 6.10 [facility] x10(3)/[facility] LABORATORY Lymphocytes % 17.6 % [facility] Lymphocytes Abs 1.7 0.9 - 3.2 [facility] x10(3)/[facility] LABORATORY Monocytes % 6.9 % [facility] Monocyte Abs 0.7 0.3 - 0.9 [facility] x10(3)/[facility] LABORATORY Eosinophils % 1.0 % [facility] Eosinophils Abs 0.1 0.0 - 0.4 [facility] x10(3)/[facility] LABORATORY Basophils % 0.7 % [facility] Basophils Abs 0.1 0.0 - 0.1 [facility] x10(3)/[facility] LABORATORY Immature Gran % 0.70 % [facility] Comment: Immature granulocytes(IG's)percentage an d absolute count will include metamyelocytes, myelocytes, and promyelo cytes. Blood smears from CBCs yielding IG's will be scanned manually for concor dance. If this scan disagrees with the automated IG or if promyelocytes are not ed, a manual differential will be performed. Shanae Gran Abs 0.07 (H) 0.00 - 0.04 x10(3)/[facility] LABORATORY Specimen Anatomical Collection Method Collection Time Receive d Time (Source) Location / / Volume Laterality Blood specimen 09/09/2017 10:11 8 (specimen) AM EDT 10:22 AM EDT Resulting Agency Comment Spec In Lab Denilson Rendon MD HEMATOLOGY ORDERABLES Performing Organization Address City/State/[place] [address] (ABNORMAL) Hemogram (09/09/2017 10:11 AM EDT) Analysis Performed At Patho logist Time Signature WBC 9.8 (H) 4.0 - 9.5 [facility] x10(3)/[facility] LABORATORY RBC 3.75 (L) 4.00 - [facility] 5.21 [facility] x10(6)/[facility] LABORATORY Hemoglobin 10.9 (L) 11.7 - [facility] 15.5 gm/dL [facility] Hematocrit 34.7 (L) 35.7 - [facility] 45.8 % [facility] MCV 92.5 82.6 - [facility] 94.4 [facility] LABORATORY MCH 29.1 27.1 - [facility] 32.0 pg [facility] MCHC 31.4 (L) 31.7 - [facility] 35.0 gm/dL [facility] Platelets 273 145 - 357 [facility] x10(3)/[facility] LABORATORY RDWSD 46.8 (H) 37.0 - [facility] 46.0 [facility] LABORATORY RDWCV 13.9 11.5 - [facility] 14.1 % [facility] MPV 10.4 7.6 - 12.9 [facility] LABORATORY nRBC % Auto 0.0 % [facility] nRBC Abs Auto 0.000 0.000 - [facility] 0.000 [facility] x10(3)/[facility] LABORATORY Specimen Anatomical Collection Method Collection Time Receive d Time (Source) Location / / Volume Laterality Blood specimen 09/09/2017 10:11 05/21/201 8 (specimen) AM EDT 10:22 AM EDT Resulting Agency Comment Spec In Lab Denilson Rendon MD HEMATOLOGY ORDERABLES Performing Organization Address City/State/[place] [address] Protein Electrophoresis, serum (09/09/2017 10:11 AM EDT) Patholo gist Method Time Signature Total Prot 6.7 6.1 - 8.0 [facility] Elec gm/dL [facility] Albumin Elect 4.00 3.60 - [place] [facility] 6.00 [facility] LABORATORY Alpha1-Globul 0.17 0.10 - [facility] in 0.30 [facility] Alpha2-Globul 0.87 0.40 - [place] in 0.90 [facility] Beta Globulin 0.75 0.50 - [facility] 1.00 [facility] Gamma 0.91 0.50 - [facility] Globulin 1.30 [facility]ORY M1 Band None [facility] Detected [facility] Specimen Anatomical Collection Method Collection Time Receive d Time (Source) Location / / Volume Laterality Blood specimen 09/09/2017 10:11 8 (specimen) AM EDT 10:22 AM EDT Resulting Agency Comment Spec In Lab Denilson Rendon MD CHEMISTRY ORDERABLES Performing Organization Address City/State/ZIP Code Phon e Number [address] Phosphorus (09/09/2017 10:11 AM EDT) P athologist Signature Phosphorus 3.8 2.5 - 4.5 [facility] mg/dL [facility] Specimen Anatomical Collection Method Collection Time Receive d Time (Source) Location / / Volume Laterality Blood specimen 09/09/2017 10:11 8 (specimen) AM EDT 10:22 AM EDT Resulting Agency Comment Spec In Lab Denilson Rendon MD CHEMISTRY ORDERABLES Performing Organization Address City/State/ZIP Code Phon e Number [address] (ABNORMAL) Calcium (09/09/2017 10:11 AM EDT) P athologist Signature Calcium 10.7 (H) 8.5 - 10.5 [facility] mg/dL [facility] Specimen Anatomical Collection Method Collection Time Receive d Time (Source) Location / / Volume Laterality Blood specimen 09/09/2017 10:11 8 (specimen) AM EDT 10:22 AM EDT Resulting Agency Comment Spec In Lab Denilson Rendon MD CHEMISTRY ORDERABLES Performing Organization Address City/State/[place] [address] Albumin Level (09/09/2017 10:11 AM EDT) P athologist Signature Albumin 3.9 3.2 - 5.2 [place] gm/dL [facility] Specimen Anatomical Collection Method Collection Time Receive d Time (Source) Location / / Volume Laterality Blood specimen 09/09/2017 10:11 8 (specimen) AM EDT 10:22 AM EDT Resulting Agency Comment Spec In Lab Denilson Rendon MD CHEMISTRY ORDERABLES Performing Organization Address City/[facility]/ZIP Code Phon e Number [address] (ABNORMAL) PTH (09/09/2017 10:11 AM EDT) P athologist Signature PTH 10 (L) 15 - 65 [facility] pg/mL [facility] Specimen Anatomical Collection Method Collection Time Receive d Time (Source) Location / / Volume Laterality Blood specimen 09/09/2017 10:11 8 (specimen) AM EDT 10:22 AM EDT Resulting Agency Comment Spec In Lab Denilson Rendon MD CHEMISTRY ORDERABLES Performing Organization Address City/[facility]/[place] [address] (ABNORMAL) Basic Metabolic Panel (non-fasting) (09/09/2017 10:11 AM EDT) P athologist Signature Glucose Lvl 117 65 - 199 PIER[facility] GOMEZCOCK mg/dL [facility] Comment: Diabetes: >=200 mg/dL plus symp toms BUN 50 (H) 8 - 18 mg/dL [facility] Creatinine 1.48 (H) 0.70 - 1.20 mg/dL [facility] Sodium 139 135 - 145 mmol/L [facility] Potassium 4.4 3.5 - 5.0 mmol/L [facility] Comment: Please note: ??Patients with WBC >100,00 0 may have falsely elevated Potassium levels. ??For accurate Potassium quantif ication in these patients send serum separator tube (gold top) for subsequent determinations. ??Contact the Clinical Chemistry Laboratory if there are any qu estions. Chloride 101 98 - 107 mmol/L [facility] CO2 25 22 - 31 mmol/L [facility] Anion Gap 13 5 - 15 mmol/L [facility] Calcium 10.7 (H) 8.5 - 10.5 mg/dL [facility] Estimated GFR 35 (L) >=60 [facility] Comment: The reported eGFR should be multiplied b y 1.2 for patients. The MDRD is not an appropriate measure o f renal function for patients with body mass extremes or in patients with acute kidney failure. http://Taqua/DHnkdep http://Taqua/DHMCnkf Specimen Anatomical Collection Method Collection Time Receive d Time (Source) Location / / Volume Laterality Blood specimen 09/09/2017 10:11 8 (specimen) AM EDT 10:22 AM EDT Resulting Agency Comment Spec In Lab Denilson Rendon MD CHEMISTRY ORDERABLES Performing Organization Address City/State/[place] [address] U Albumin/Cre Ratio (09/09/2017 8:30 AM EDT) athologist Signature Alb/Cr Ratio, 10 0 - 29 [facility] Random mcg/mg Cr [facility] Comment: Reference Ranges: <30 mcg/mg: [...] 2, 357? 362 U Albumin Conc, Random 8.0 mg/L [facility] U Creatinine 84 mg/dL [facility] Specimen Anatomical Collection Method Collection Time Receive d Time (Source) Location / / Volume Laterality Urine specimen 09/09/2017 8:30 AM 018 5:11 (specimen) EDT PM EDT Resulting Agency Comment Spec In Lab Denilson Rendon MD URINE ORDERABLES Performing Organization Address City/State/[place] [address] documented in this encounter Visit Diagnoses Diagnosis CKD (chronic kidney disease) stage 3, GF R 30-59 ml/min Chronic kidney disease, Stage III (moder ate) Gastroesophageal reflux disease with eso phagitis documented in this encounter Care Teams Hospice Care Transitions Coordinator Relationship Specialty Start Date End Date Amanda Barnett DO PCP - General Family Medicine 06/19/17 [facility] [place] [address] [place] [address] documented as of this encounter
--- OUTSIDE RECORDS SUMMARY | 2022-02-02 00:31 | XMS_ITS | Encounter Summary ---
:1950 Author Organization [facility] Address [facility] [place] [address] Care Team Providers Name Role Phone Gerry Hackett MD Primary Care Provider [phone] Encounter Details Date Type Department Care Team Description 01/04/2016 Laboratory Appointment Lab at [facility] Type 1 diabetes [facility] mellitus with stage [address] Drive chronic [place] disease [id number] Social History Tobacco Use Types Packs/Day Years [...] 04/04/2022 Office Visit Dermatology Celena Salazar MD [facility] DR THERESE LEOS-DERMAT [place], [place] [address] (Wo rk) documented as of this encounter Procedures Procedure Name Priority Date/Time Associated Diagnosis Comme nts HEMOGLOBIN A1C Routine 01/04/2016 12:17 PM Type 1 diabetes Res ults for this EDT mellitus with stage 2 proced ure are in the chronic kidney results secti on. disease documented in this encounter Results (ABNORMAL) Hemoglobin A1c (01/04/2016 12:17 PM EDT) Analysis Performed At Path logis Time Signature Hemoglobin A1C 8.4 (H) 4.3 - 5.6 [facility] [...] 36: Suppl. 1, S67-74 Est Avg Gluc 194 mg/dL [facility] Comment: eAG equivalents for HbA1c percentages: HbA1c(%) ?eAG(mg/dL) 6.0 ?126 6.5 ?140 7.0 ?154 7.5 ?169 8.0 ?183 8.5 ?197 9.0 ?212 9.5 ?226 10.0 ? 240 Limitations: The eAG calculation has not been validated on women, individuals below 18 years old and above 70 years old, and individuals with hemoglobinopathies. Additional resources are available on [facility] website: http://SportID.[place]/DHMCadacalc Chevy PARTIDA, Jr J, Syed R, et al. ??Tr anslating the A1C assay into estimated average glucose values. ??Diabetes Care 2008:31(8):5857-6370. Specimen Anatomical Collection Method Collection Time Receive d Time (Source) Location / / Volume Laterality Blood specimen 01/04/2016 12:17 6 (specimen) PM EDT 12:30 PM EDT Resulting Agency Comment Spec In Lab Pratik Cee MD CHEMISTRY ORDERABLES Performing Organization Address City/State/[place] [address] documented in this encounter Visit Diagnoses Diagnosis Type 1 diabetes mellitus with stage 2 ch ronic kidney disease Type I (juvenile type) diabetes mellitus with renal manifestations, not stated as uncontrolled documented in this encounter Care Teams Fpga Design Engineer Relationship Specialty Start Date End Date Gerry Hackett MD PCP - General 03/14/10 06/18/[address] [place] [address] documented as of this encounter
--- OUTSIDE RECORDS SUMMARY | 2022-02-02 00:31 | XMS_ITS | Encounter Summary ---
:1950 Author Organization [place] [address] Care Team Providers Name Role Phone Gerry Hackett MD Primary Care Provider [phone] Reason for Visit Reason Onset Date Comments Medication Refill 12/05/2016 Encounter Details Date Type Department Care Team Description 12/05/2016 Refill Endocrinology at [facility] Jess G[place], [place] [address] Social History Tobacco Use Types Packs/Day Years [...] [facility] ER [address] THERESE LEOS[address], [place] [address] (Wo rk) documented as of this encounter Visit Diagnoses Not on filedocumented in this encounter Care Teams Wax Ball Knock Out Worker Relationship Specialty Start Date End Date Gerry Hackett MD PCP - General 03/14/10 06/18/17 [facility] [place] [place] [address] documented as of this encounter
--- OUTSIDE RECORDS SUMMARY | 2022-02-02 00:31 | XMS_ITS | Encounter Summary ---
:1950 Author Organization [facility] Address [address] [place] [address] Care Team Providers Name Role Phone Gerry Hackett MD Primary Care Provider [phone] Encounter Details Date Type Department Care Team Description 06/18/2016 Orders Only Hematology and Oncol ogy at [facility] [place] [address] Social History Tobacco Use Types Packs/Day Years Used Date Former Smoker Quit: 04/04/19 99 Smokeless Tobacco: Never Used Alcohol Use Standard Drinks/Week Comments No 0 (1 standard drink = 0.6 oz pure alcoho l) Sex Assigned at Date Recorded Not on file documented as of this encounter Progress Notes Oriana Weiner - 06/18/2016 3:07 PM EST Pennie Rodriguez 1. Weight: 310 2. Mobility Concerns? Yes ?? If Yes, describe: uses walker and O2 as needed 3. Does the patient have a Mediport? No 4. Is the patient coming from a skilled care facility? No ?? If yes, the patient must be accompanied by a caregiver for the enter exam/transportation arrangements must be made in advance. documented in this encounter Plan of Treatment Upcoming Encounters Date Type Specialty Care Team Description 04/04/2022 Office Visit Dermatology Celena Salazar MD [facility] [address] [place], [place] [address] (Wo rk) documented as of this encounter Visit Diagnoses Not on filedocumented in this encounter Care Teams Prekindergarten Teacher Relationship Specialty Start Date End Date Gerry Hackett MD PCP - General 03/14/10 06/18/[address] [place] [address] documented as of this encounter
--- OUTSIDE RECORDS SUMMARY | 2022-02-02 00:31 | XMS_ITS | Encounter Summary ---
:1950 Author Organization [facility] [place] [address] Care Team Providers Name Role Phone Gerry Hackett MD Primary Care Provider [phone] Reason for Referral Diagnostic Test (Routine) - Closed Specialty Diagnoses / Procedures Referred By Contact Refer red To Contact Radiology Diagnoses Squamous cell carcinoma of lung, unspecified laterality Delbert Greenberg MD [facility] Rad Ct Scan Procedures CT Chest wo Contrast (Generic) [facility] [place] [address] [place] [address] Referral ID Status Reason Start Date Expiration Date Visits V isits Requested Authorized [id number] Closed Specialty 09/28/2016 09/28/2017 1 1 Service Requested Reason for Visit Reason Comments Follow-up Encounter Details Date Type Department Care Team Description 09/25/2016 Office Visit Hematology and Hannah Greenberg MD [facility] [place] [address] Squamous cell Oncology at [facility] Jaqueline Whitman APRN [facility] HEMATOLOGY[place] [address] carcinoma of lung, [facility] unspecifi [place] [address] Social History Tobacco Use Types Packs/Day Years Used Date Former Smoker Quit: 04/04/19 99 Smokeless Tobacco: Never Used Alcohol Use Standard Drinks/Week Comments No 0 (1 standard drink = 0.6 oz pure alcoho l) Sex Assigned at Date Recorded Not on file documented as of this encounter Last Filed Vital Signs Vital Sign Reading Time Taken Comments Blood Pressure 138/87 09/25/2016 2:14 PM EDT Pulse 94 09/25/2016 2:14 PM EDT Temperature 37.1 ??C (98.8 ??F) 09/25/2016 2:14 PM EDT Respiratory Rate 20 09/25/2016 2:14 PM EDT Oxygen Saturation 96% 09/25/2016 2:14 PM EDT Inhaled Oxygen Concentration - - Weight 140.8 kg (310 lb 6.4 oz) 09/25/2016 2:14 PM EDT Height 166.6 cm (5' 5.59) 09/25/2016 2:14 PM EDT Body Mass Index 50.73 09/25/2016 2:14 PM EDT documented in this encounter Progress Notes Delbert Greenberg MD - 09/25/2016 2:15 PM EDT Subjective: Patient ID: Pennie Rodriguez is a 65 y.o. female with resected (left pneumonectomy) stage IIIA ([id number]) non-small cell lung cancer in March 2004. She received adjuvant chemotherapy followed by post-operative RT. Returning for follow-up. HPI Overall the patient feels about the same as 1 year ago. Her energy is stable. She reports slowly worsening dyspnea on exertion. No shortness of breath at rest. There is occasional cough without hemoptysis. She uses oxygen with activity, this is stable. The patient still has mild tenderness in the right clavicle, unchanged from last year. Her appetite is good, no difficulty swallowing, no nausea. She is following a diabetic diet but has been unable to lose weight. No fevers/chills, HAs, diplopia or visual defects, difficulty swallowing, heartburn, N/V, abd pain, diarrhea or constipation, urinary comp laints, lightheadedness, falls, focal weakness, bleeding, rash, neck/back/new pain (has longstandingarthritis pain which is unchanged). There is intermittent numbness in the feet, not significantly changed from last year. Review of Systems See HPI. ROS otherwise unremarkable. MEDICATIONS AND ALLERGIES: Please see this patient's medications and allergies from today, 09/28/2016.I personally reviewed this patient's medications and allergies. [...] daily (before meals). 15 mL 3 ??? OXYGEN-AIR DELIVERY SYSTEMS (WALKABOUT 2 OXYGEN SYSTEM MISC) by [facility]Non- Drug; Combo Route) route. ??? Calcium Carbonate-Vitamin [...] ??? omeprazole (PRILOSEC) 20 mg capsule ??? sitaGLIPtin (JANUVIA) 100 mg tablet (Patient taking differently: Take 1/2 tablet daily) ??? PROAIR HFA 90 mcg/actuation inhaler Inhale 2 puffs into the lungs as needed. Reported on 09/25/2016 ??? pramoxine (PROCTOFOAM) 1 % foam (Patient not taking: No sig reported) No current facility-administered medications on file prior to visit. Allergies Allergen Reactions ??? Morphine Sulfate Nausea And Vomiting Physical Exam: Vitals: 09/25/16 1414 BP: 138/87 Patient Position: Sitting Pulse: 94 Resp: 20 Temp: 37.1 ??C (98.8 ??F) TempSrc: Temporal SpO2: 96% Weight: (!) 140.8 kg (310 lb 6.4 oz) Height: 166.6 cm (5' 5.59) Wt Readings from Last 3 Encounters: 09/25/16 (!) 140.8 kg (310 lb 6.4 oz) 07/10/16 (!) 142 kg (313 lb) 01/04/16 (!) 141.9 kg (312 lb 12.8 oz) Objective: Physical Exam Constitutional: [...] to palpation. Musculoskeletal: Normal range of motion. +1 edema in B/L LE. Neurological: She is alert and oriented to person, place, and time. Cranial nerves grossly intact. Skin: Skin is warm and dry. No rash noted. LABORATORY EVALUATION: Ref. Range 09/25/2016 12:12 WBC Latest Ref Range: 4.0 - 9.5 x10(3)/mcL 8.3 RBC Latest Ref Range: 4.00 - 5.21 x10(6)/mcL 3.84 (L) Hemoglobin Latest Ref Range: 11.7 - 15.5 gm/dL 10.9 (L) Hematocrit Latest Ref Range: 35.7 - 45.8 % 35.1 (L) MCV Latest Ref Range: 82.6 - 94.4 fL 91.4 MCH Latest Ref Range: 27.1 - 32.0 pg 28.4 MCHC Latest Ref Range: 31.7 - 35.0 gm/dL 31.1 (L) RDWSD Latest Ref Range: 37.0 - 46.0 fL 48.3 (H) RDWCV Latest Ref Range: 11.5 - 14.1 % 14.4 (H) Platelets Latest Ref Range: 145 - 357 x10(3)/mcL 257 MPV Latest Ref Range: 7.6 - 12.9 fL 10.6 nRBC % Auto Latest Units: % 0.0 nRBC Abs Auto Latest Ref Range: 0.000 - 0.000 x10(3)/mcL 0.000 Neutr Abs (ANC) Latest Ref Range: 1.70 - 6.10 x10(3)/mcL 6.14 (H) Neutrophils % Latest Units: % 74.4 Immature Gran % Latest Units: % 0.40 Lymphocytes % Latest Units: % 16.1 Monocytes % Latest Units: % 7.1 Eosinophils % Latest Units: % 1.3 Basophils % Latest Units: % 0.7 Shanae Gran Abs Latest Ref Range: 0.00 - 0.04 x10(3)/mcL 0.03 Lymphocytes Abs Latest Ref Range: 0.9 - 3.2 x10(3)/mcL 1.3 Monocyte Abs Latest Ref Range: 0.3 - 0.9 x10(3)/mcL 0.6 Eosinophils Abs Latest Ref Range: 0.0 - 0.4 x10(3)/mcL 0.1 Basophils Abs Latest Ref Range: 0.0 - 0.1 x10(3)/mcL 0.1 Sodium Latest Ref Range: 135 - 145 mmol/L 142 Potassium Latest Ref Range: 3.5 - 5.0 mmol/L 4.5 Chloride Latest Ref Range: 98 - 107 mmol/L 102 CO2 Latest Ref Range: 22 - 31 mmol/L 27 Anion Gap Latest Ref Range: 5 - 15 mmol/L 13 BUN Latest Ref Range: 8 - 18 mg/dL 28 (H) Creatinine Latest Ref Range: 0.70 - 1.20 mg/dL 1.32 (H) Estimated GFR Latest Ref Range: >=60 40 (L) Glucose Lvl Latest Ref Range: 65 - 199 mg/dL 126 Calcium Latest Ref Range: 8.5 - 10.5 mg/dL 9.4 Total Protein Latest Ref Range: 6.1 - 8.0 gm/dL 7.2 Albumin Latest Ref Range: 3.2 - 5.2 gm/dL 4.0 Total Bilirubin Latest Ref Range: 0.2 - 1.3 mg/dL <0.2 (L) Bili, Direct Latest Ref Range: 0.0 - 0.3 mg/dL <0.1 Alk Phos Latest Ref Range: 40 - 104 unit/L 104 AST Latest Ref Range: 0 - 30 unit/L 10 ALT Latest Ref Range: 0 - 30 unit/L 10 LDH Latest Ref Range: 110 - 220 unit/L 174 I personally reviewed a CAT scan that showed overall stability and no new lesions, compared to a scan from 08/30/09. Assessment and Plan: ASSESSMENT: Patient with resected stage IIIA ([id number]) non-small cell lung cancer in 2004 status post adjuvant chemotherapy and sequential postoperative radiation therapy following her left pneumonectomy. There is no evidence of recurrent disease. The right clavicular asymmetry and mild tenderness is likely associated with sequelae from left pneumonectomy. It is unlikely to be related to recurrent cancer. I counseled the patient about these results, [...] her follow-up by her primary care physician. The patient had numerous questions that wereanswered to her satisfaction. I advised to call if there are any fever, shortness of breath, new pain, weakness, bleeding or any other unusual medical symptoms. The patient will come back in 1 year forreevaluation. documented in this encounter Plan of Treatment Upcoming Encounters Date Type Specialty Care Team Description 04/04/2022 Office Visit Dermatology Celena Salazar MD [facility] [address] [place], [place] [address] (Wo rk) documented as of [...] PM Delbert Greenberg MD IMG CT ORDERABLES (ABNORMAL) Comprehensive metabolic panel (non-fasting) (09/24/2017 2:30 PM EDT) P athologist Signature Glucose Lvl 140 65 - 199 [facility] mg/dL [facility] Comment: Diabetes: >=200 mg/dL plus symp toms BUN 45 (H) 8 - 18 mg/dL [facility] Creatinine 1.47 (H) 0.70 - 1.20 mg/dL [facility] Sodium 140 135 - 145 mmol/L [facility] Potassium 4.3 3.5 - 5.0 mmol/L [facility] Comment: Please note: ??Patients with WBC >100,00 0 may have falsely elevated Potassium levels. ??For accurate Potassium quantif ication in these patients send serum separator tube (gold top) for subsequent determinations. ??Contact the Clinical Chemistry Laboratory if there are any qu estions. Chloride 103 98 - 107 mmol/L [facility] CO2 23 22 - 31 mmol/L [facility] Anion Gap 14 5 - 15 mmol/L [facility] Calcium 9.2 8.5 - 10.5 mg/dL [facility] Total Protein 7.3 6.1 - 8.0 gm/dL [facility] Albumin 3.8 3.2 - 5.2 gm/dL [facility] AST 8 0 - 30 unit/L [facility] ALT 11 0 - 30 unit/L [facility] Alk Phos 82 40 - 104 unit/L [facility] Total Bilirubin 0.2 0.2 - 1.3 mg/dL [facility] Estimated GFR 35 (L) >=60 [facility] Comment: The reported eGFR should be multiplied b y 1.2 for patients. The MDRD is not an appropriate measure o f renal function for patients with body mass extremes or in patients with acute kidney failure. http://[employer]/DHnkdep http://[employer]/DHMCnkf Specimen Anatomical Collection Method Collection Time Receive d Time (Source) Location / / Volume Laterality Blood specimen 09/24/2017 2:30 PM 018 2:39 (specimen) EDT PM EDT Resulting Agency Comment Spec In Lab Delbert Greenberg MD CHEMISTRY ORDERABLES Performing Organization Address City/[facility] [place] [address] Lactate Dehydrogenase (09/24/2017 2:30 PM EDT) P athologist Signature LDH 159 110 - 220 [facility] unit/L [facility] Specimen Anatomical Collection Method Collection Time Receive d Time (Source) Location / / Volume Laterality Blood specimen 09/24/2017 2:30 PM 018 2:39 (specimen) EDT PM EDT Resulting Agency Comment Spec In Lab Delbert Greenberg MD CHEMISTRY ORDERABLES Performing Organization Address City/[facility] [place] [address] documented in this encounter Visit Diagnoses Diagnosis Squamous cell carcinoma of lung, unspeci fied laterality Squamous cell carcinoma of lung, unspeci fied laterality documented in this encounter Care Teams Brand Director Relationship Specialty Start Date End Date Gerry Hackett MD PCP - General 03/14/10 06/18/[address] [place] [address] documented as of this encounter
--- OUTSIDE RECORDS SUMMARY | 2022-02-02 00:31 | XMS_ITS | Encounter Summary ---
:1950 Author Organization [facility] Address [address] [place] [address] Care Team Providers Name Role Phone Gerry Hackett MD Primary Care Provider [phone] Encounter Details Date Type Department Care Team Description 01/05/2016 Telephone Endocrinology at [facility] Diane Lewis APRN [facility] [place] [address] ENDOCRINOLOGY DEPT. [phone] [place], [place] [address] (Wo rk) Social History Tobacco Use Types Packs/Day Years Used Date Former Smoker Quit: 04/04/19 99 Smokeless Tobacco: Never Used Alcohol Use Standard Drinks/Week Comments No 0 (1 standard drink = 0.6 oz pure alcoho l) Sex Assigned at Date Recorded Not on file documented as of this encounter Miscellaneous Notes Telephone Encounter - Jacquelyn Arriaga LPN - 01/05/2016 3:53 PM EDT Returned call to patient, reassured her that the note states she is a type 2 DM as does the problem list. documented in this encounter Plan of Treatment Upcoming Encounters Date Type Specialty Care Team Description 04/04/2022 Office Visit Dermatology Celena Salazar MD [facility] ER DR THERESE LE[address], [place] [address] (Wo rk) documented as of this encounter Visit Diagnoses Not on filedocumented in this encounter Care Teams Classification And Treatment Director Relationship Specialty Start Date End Date Gerry Hackett MD PCP - General 03/14/10 06/18/[address] [place] [address] documented as of this encounter
--- OUTSIDE RECORDS SUMMARY | 2022-02-02 00:31 | XMS_ITS | Encounter Summary ---
:1950 Author Organization [facility] [place] [address] Care Team Providers Name Role Phone Amanda Barnett DO Primary Care Provider Encounter Details Date Type Department Care Team Description 08/06/2017 Laboratory Appointment Lab 3L [facility] 2 diabetes [facility] mellitus with stage 3 [facility] disease, with [place], [place] long-term curre nt use [phone] of insulin [phone] Social History Tobacco Use Types Packs/Day Years [...] Office Visit Dermatology Celena Salazar MD [facility] ER DR THERESE LEOS-DERMAT [place], [place] [address] (Wo rk) documented as of this encounter Procedures Procedure Name Priority Date/Time Associated Diagnosis Comme nts CREATININE Routine 08/06/2017 11:49 AM Type 2 diabetes Resul ts for this EDT mellitus with stage 3 proced ure are in the chronic kidney results secti on. disease, with long-term current use of insulin HEMOGLOBIN A1C Routine 08/06/2017 11:49 AM Type 2 diabetes Res ults for this EDT mellitus with stage 3 proced ure are in the chronic kidney results secti on. disease, with long-term current use of insulin documented in this encounter Results (ABNORMAL) Creatinine (08/06/2017 11:49 AM EDT) Analysis Performed At [facility] Signature Creatinine 1.62 (H) 0.70 - [facility] 1.20 mg/dL [facility] Estimated GFR 32 (L) >=60 [facility] Comment: The reported eGFR should be multiplied b y 1.2 for patients. The MDRD is not an appropriate measure o f renal function for patients with body mass extremes or in patients with acute kidney failure. http://[employer]/DHnkdep http://[employer]/DHMCnkf Specimen Anatomical Collection Method Collection Time Receive d Time (Source) Location / / Volume Laterality Blood specimen 08/06/2017 11:49 8 (specimen) AM EDT 12:03 PM EDT Resulting Agency Comment Spec In Lab Diane Serra APRN CHEMISTRY ORDERABLES Performing Organization Address City/State/[place] [address] (ABNORMAL) Hemoglobin A1c (08/06/2017 11:49 AM EDT) Analysis Performed At [facility] Time Signature Hemoglobin A1C 6.4 (H) 4.3 - 5.6 [facility] Comment: Reference Range: 4.3 [...] Mellitus, Diabetes Care 2013; 36: Suppl. 1, S67-31 Est Avg Gluc 137 mg/dL [facility] Comment: eAG equivalents for HbA1c percentages: HbA1c(%) ?eAG(mg/dL) 6.0 ?126 6.5 ?140 7.0 ?154 7.5 ?169 8.0 ?183 8.5 ?197 9.0 ?212 9.5 ?226 10.0 ? 240 Limitations: The eAG calculation has not been validated on women, individuals below 18 years old and above 70 years old, and individuals with hemoglobinopathies. Additional resources are available on [facility] ADA website. Chevy PARTIDA, Jr J, Syed R, et al. ??Tr anslating the A1C assay into estimated average glucose values. ??Diabetes Care 2008:31(8):8616-0825. 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
--- OUTSIDE RECORDS SUMMARY | 2022-02-02 00:31 | XMS_ITS | Encounter Summary ---
:1950 Author Organization [facility] [place] [address] Care Team Providers Name Role Phone Gerry Hackett MD Primary Care Provider [phone] Reason for Visit Reason Comments Follow-up Encounter Details Date Type Department Care Team Description 08/31/2015 Office Visit Hematology and Hannah Greenberg MD [facility] [place] [address] Malignant neoplasm of Oncology at [facility] Jaqueline Whitman APRN [facility] [address] [place] [address] lung, unspecified [facility] y, [facility] unspecified part [place] lung [phone] Social History Tobacco Use Types Packs/Day Years Used Date Former Smoker Quit: 04/04/19 99 Smokeless Tobacco: Never Used Alcohol Use Standard Drinks/Week Comments No 0 (1 standard drink = 0.6 oz pure alcoho l) Sex Assigned at Date Recorded Not on file documented as of this encounter Last Filed Vital Signs Vital Sign Reading Time Taken Comments Blood Pressure 119/65 08/31/2015 1:29 PM EDT Pulse 88 08/31/2015 1:29 PM EDT Temperature 36.3 ??C (97.3 ??F) 08/31/2015 1:29 PM EDT Respiratory Rate - - Oxygen Saturation 99% 08/31/2015 1:29 PM EDT Inhaled Oxygen Concentration - - Weight 141.5 kg (312 lb) 08/31/2015 1:29 PM EDT Height 167.3 cm (5' 5.87) 08/31/2015 1:29 PM EDT Body Mass Index 50.56 08/31/2015 1:29 PM EDT documented in this encounter Progress Notes Blossom Shankar RN - 08/31/2015 1:52 PM EDT Chief concern: Denies concern Change in breathing or cough: No change since last year, tires easily but at baseline. Diet: Eating well, New pain: New discomfort, off/on for some time. Discomfort greater to right than left, this is not new discomfort. Bowels: no concern. Medication refills: none Advanced directives: Has filed but not in our system, she will bring in at next visit. Jaqueline Hunt APRN - 08/31/2015 1:50 PM EDT Subjective: Patient ID: Pennie Rodriguez is a 64 y.o. female with resected (left pneumonectomy) stage IIIA ([id number]) non-small cell lung cancer in March 2004. She received adjuvant chemotherapy followed by post-operative RT. Returning for follow-up. HPI Last seen 1 year ago. Since that visit she has seen endocrinology for management of her diabetes andopthalmology for cataract surgery. She also saw pulmonology for evaluation of progressive SOB, whichis multifactorial. No change in her COPD regimen, but weight loss and a sleep study were recommended. She hasn't scheduled a sleep study yet. Otherwise no new medical issues over the past year. Her one complaint today is new tenderness/sensitivity of the right medial clavicle. She reports thatthere has been asymmetry of the right and left for many years, but the slight tenderness is new. This only occurs only with deep palpation. Breathing is unchanged over the past year. No SOB at rest. IZQUIERDO is stable. Uses 2L of O2 occasionally with activity- oxygen demand has not changed recently. No cough. No hemoptysis. No chest pain. Eating and drinking fine. Following a diabetic diet with portion control. She is trying to lose weight without success. Energy level is fair and unchanged from prior. She does her own errands with the use of a scooter in stores. Able to do small amounts of housework with frequent breaks. She lives with her son. No fevers/chills, HAs, diplopia or visual defects, difficulty swallowing, heartburn, N/V, abd pain, diarrhea or constipation, urinary complaints, lightheadedness, falls, focal weakness, bleeding, rash,neck/back/new pain (has longstanding arthritis pain which is unchanged). There is intermittent numbness in the feet. Review of Systems See HPI. ROS otherwise unremarkable. MEDICATIONS AND ALLERGIES: Please see this patient's medications and allergies from today, 08/31/2015. I personally reviewed this patient's medications and [...] OXYGEN-AIR DELIVERY SYSTEMS (WALKABOUT 2 OXYGEN SYSTEM [facility]) by [facility] [place] [facility].(Non- Drug; Combo Route) route. ??? Calcium Carbonate-Vitamin D3 (CALCIUM 500 + D) 500 mg(1,250mg) -400 unit Chew Take by mouth 2 times daily. ??? insulin glargine (LANTUS SOLOSTAR) 100 unit/mL (3 mL) pen injection Inject 34 Units subcutaneously nightly. ??? atorvastatin (LIPITOR) 40 [...] Morphine Sulfate Nausea And Vomiting Physical Exam: Filed Vitals: 08/31/15 1329 BP: 119/65 Pulse: 88 Temp: 36.3 ??C (97.3 ??F) TempSrc: Temporal Height: 167.3 cm (5' 5.87) Weight: 141.522 kg (312 lb) SpO2: 99% Wt Readings from Last 3 Encounters: 08/31/15 141.522 kg (312 lb) 07/04/15 141.522 kg (312 lb) 03/15/15 136.079 kg (300 lb) Objective: Physical Exam Constitutional: She is oriented [...] LABORATORY EVALUATION: Recent Results (from the past 24 hour(s)) Comprehensive metabolic panel (non-fasting) Result Value Ref Range Glucose Lvl 161 65 - 199 mg/dL BUN 26 (H) 8 - 18 mg/dL Creatinine 1.22 (H) 0.70 - 1.20 mg/dL Sodium 139 135 - 145 mmol/L Potassium 4.9 3.5 - 5.0 mmol/L Chloride 100 98 - 107 mmol/L CO2 27 22 - 31 mmol/L Anion Gap 12 5 - 15 mmol/L Calcium 9.4 8.5 - 10.5 mg/dL Total Protein 7.4 6.1 - 8.0 gm/dL Albumin 3.8 3.2 - 5.2 gm/dL AST 6 0 - 30 unit/L ALT 7 0 - 30 unit/L Alk Phos 103 40 - 104 unit/L Total Bilirubin 0.2 0.2 - 1.3 mg/dL Bili, Direct <0.1 0.0 - 0.3 mg/dL Estimated GFR 44 (L) >=60 Lactate Dehydrogenase Result Value Ref Range LDH 167 110 - 220 unit/L Hemogram Result Value Ref Range WBC 8.1 4.0 - 10.0 x10(3)/mcL RBC 3.98 3.93 - 5.22 x10(6)/mcL Hemoglobin 11.5 11.2 - 15.7 gm/dL Hematocrit 36.1 34.0 - 45.0 % MCV 90.7 79.0 - 94.0 fL MCH 28.9 26.6 - 32.2 pg MCHC 31.9 (L) 32.0 - 36.5 gm/dL Platelets 273 145 - 370 x10(3)/mcL RDWSD 48.1 (H) 35.0 - 46.0 fL RDWCV 14.5 (H) 10.9 - 14.4 % MPV 10.8 9.0 - 12.0 fL Differential, Automated Result Value Ref Range Neutrophils % 72.1 % Neutr Abs (ANC) 5.87 1.50 - 6.30 x10(3)/mcL Lymphocytes % 18.7 % Lymphocytes Abs 1.5 1.0 - 3.6 x10(3)/mcL Monocytes % 6.5 % Monocyte Abs 0.5 0.2 - 1.0 x10(3)/mcL Eosinophils % 1.5 % Eosinophils Abs 0.1 0.0 - 0.5 x10(3)/mcL Basophils % 0.7 % Basophils Abs 0.1 0.0 - 0.2 x10(3)/mcL Immature Gran % 0.50 % Shanae Gran Abs 0.04 0.00 - 0.05 x10(3)/mcL CXR from today personally reviewed and is unchanged from prior. Previous left pneumonectomy. Assessment and Plan: ASSESSMENT: Patient with resected stage IIIA ([id number]) non-small cell lung cancer in 2004 status post adjuvant chemotherapy and sequential postoperative radiation therapy following her left pneumonectomy. She now is over 5 years without evidence of recurrent disease. Reviewed labs and CXR results withpt. She will call if there is progressive or persistent discomfort of the right medial clavicle, otherwise will continue to follow with annual surveillance. Will obtain a chest CT wo contrast in 1 year. She will f/u with her PCP to arrange a sleep study, which I strongly recommend. Her blood sugars have also been poorly controlled (high 300's in the evening) so I recommended she f/u with endocrinology. RTC in 1 year with labs, chest CT without contrast and a clinic visit. She will call in the meantimewith any new or concerning symptoms. documented in this encounter Plan of Treatment Upcoming Encounters Date Type Specialty Care Team Description 04/04/2022 Office Visit Dermatology Celena Salazar MD [facility] DR THERESE LEOS-DERMAT [place], [place] [address] (Wo rk) documented as of this encounter Visit Diagnoses Diagnosis Malignant neoplasm of lung, unspecified laterality, unspecified part of lung documented in this encounter Care Teams Remotely Operated Vehicle Relationship Specialty Start Date End Date Gerry Hackett MD PCP - General 03/14/10 06/18/[address] [place] [address] documented as of this encounter
--- OUTSIDE RECORDS SUMMARY | 2022-02-02 00:31 | XMS_ITS | Encounter Summary ---
:1950 Author Organization [facility] [place] [address] Care Team Providers Name Role Phone Amanda Barnett DO Primary Care Provider Reason for Visit Reason Comments Diabetes Encounter Details Date Type Department Care Team Description 08/06/2017 Office Visit Endocrinology at [facility] Diane Lewis, Type 2 diabetes [facility] JEWELRY TECHNICIAN mellitus with stage 3 [facility] [place] [address] disease, with [phone] ENDOCRINOLOGY long-term curr ent use DEPT. of insulin [place] [address] Social History Tobacco Use Types Packs/Day Years Used Date Former Smoker Cigarettes Quit: 04/04/19 99 Smokeless Tobacco: Never Used Alcohol Use Standard Drinks/Week Comments No 0 (1 standard drink = 0.6 oz pure alcoho l) Sex Assigned at Date Recorded Not on file documented as of this encounter Last Filed Vital Signs Vital Sign Reading Time Taken Comments Blood Pressure 107/64 08/06/2017 1:04 PM EDT Pulse 92 08/06/2017 1:04 PM EDT Temperature - - Respiratory Rate - - Oxygen Saturation - - Inhaled Oxygen Concentration - - Weight 128.2 kg (282 lb 9.6 oz) 08/06/2017 1:04 PM EDT Height 167.6 cm (5' 6) 08/06/2017 1:04 PM EDT Body Mass Index 45.61 08/06/2017 1:04 PM EDT documented in this encounter Patient Instructions Patient InstructionsDiane Serra, JEWELRY TECHNICIAN - 08/06/2017 1:00 PM EDT May need to lower lisinopril dose if you feel light headed or dizzy Great job with glucose levels Glimepiride before the meals Lower lantus dose to 32 units documented in this encounter Progress Notes Diane Serra APRN - 08/06/2017 1:00 PM EDT Office visit note for Pennie Rodriguez Date of visit 08/06/2017 Reason for visit: Follow-up type 2 DM now in excellent control. Hypertension in good control, morbidobesity. Brief history: Scheduled an appointment with Renee PURVIS and has been working hard to loseweight. SB. 2 times a day Diabetes regimen: Lantus 38 units in p.m., glimepiride 4 mg twice a day, linagliptin 5 mg daily, occasionally takes apidra if glucose levels are high, up to 8 units Complications: Chronic kidney disease Past medical history: Lung cancer, had left lung removed. Morbid obesity Review of systems: All 12 systems reviewed and negative except as noted in HPI Physical exam: Appearance: She is obese with a larger central girth. Weight 282 pounds. She has lost31 pounds in the past year. Blood pressure 107/64. Eyes: No retinopathy with greenlight exam. Neck: No thyromegaly or lymphadenopathy. Heart: Regular rate and rhythm. Right lung breath sounds are clear. Feet: Skin is normal, pulses are normal. Neuro: Normal sensation to 10 G's of pressure. Hemoglobin A1c 6.4%. GFR 32 Impression and plan: DM type 2 in excellent control. Congratulated patient with weight loss success.Reviewed blood glucose log. Advised to lower the Lantus dose to 32 units. May need to lower lisinopril dose if she has symptoms of lightheadedness or dizziness. Return to office in 4 months. Will check hemoglobin A1c and creatinine. Will schedule appointment with shovel operator if GFR gets lower. This was a 34 minute office visit with 26 minutes spent counseling [id number] with patient in the management glucose levels, lowering Lantus dose to get fasting glucose levels generally above 95 Recent Results (from the past 72 hour(s)) Hemoglobin A1c Result Value Ref Range Hemoglobin A1C 6.4 (H) 4.3 - 5.6 % Est Avg Gluc 137 mg/dL Creatinine Result Value Ref Range Creatinine 1.62 (H) 0.70 - 1.20 mg/dL Estimated GFR 32 (L) >=60 documented in this encounter Plan of Treatment Upcoming Encounters Date Type Specialty Care Team Description 04/04/2022 Office Visit Dermatology Celena Salazar MD [facility] DR THERESE LEOS-DERMAT [place], [place] [address] (Wo rk) documented as of this encounter Results (ABNORMAL) Creatinine (12/05/2017 12:03 PM EDT) Analysis Performed At Patho logist Time Signature Creatinine 1.68 (H) 0.70 [facility] 1[facility] mg/dL [facility] Estimated GFR 31 (L) >=60 [facility] mL/min/1.7 [facility] 3 m?[facility] Comment: The eGFR was calculated using the CKD-EP I equation. As with all creatinine based estimates of kidney function, eGFR values calculated with the CKD-EPI equation are not accurate in patients wi th acute kidney failure, extremes of body mass or the acutely ill. http://[employer]/[facility]nk[facility] eGFR 36 (L) >=60 mL/min/1.73 m?? [facility] Comment: The eGFR was calculated using the CKD-EP I equation. As with all creatinine based estimates of kidney function, eGFR values calculated with the CKD-EPI equation are not accurate in patients wi th acute kidney failure, extremes of body mass or the acutely ill. http://[employer]/[facility] ENIDnk[facility] Specimen Anatomical Collection Method Collection Time Receive d Time (Source) Location / / Volume Laterality Blood specimen 12/05/2017 12:03 8 (specimen) PM EDT 12:10 PM EDT Resulting Agency Comment Spec In Lab Diane Serra APRN CHEMISTRY ORDERABLES Performing Organization Address City/State/[place] [address] (ABNORMAL) Hemoglobin A1c (12/05/2017 12:03 PM EDT) Analysis Performed At Patho logist Time Signature Hemoglobin A1C 6.6 (H) 4.3 - 5.6 [facility] [...] Mellitus, Diabetes Care 2013; 36: Suppl. 1, S67- Est Avg Gluc 143 mg/dL [facility] Comment: eAG equivalents for HbA1c percentages: HbA1c(%) ?eAG(mg/dL) 6.0 ?126 6.5 ?140 7.0 ?154 7.5 ?169 8.0 ?183 8.5 ?197 9.0 ?212 9.5 ?226 10.0 ? 240 Limitations: The eAG calculation has not been validated on women, individuals below 18 years old and above 70 years old, and individuals with hemoglobinopathies. Additional resources are available on [facility] ADA website. Chevy PARTIDA, Jr J, Syed R, et al. ??Tr anslating the A1C assay into estimated average glucose values. ??Diabetes Care 2008:31(8):0553-0400. Specimen Anatomical Collection Method Collection Time Receive d Time (Source) Location / / Volume Laterality Blood specimen 12/05/2017 12:03 8 (specimen) PM EDT 12:10 PM EDT Resulting Agency Comment Spec In Lab Eliana Ponce BEJARANO CHEMISTRY ORDERABLES Performing Organization Address City/State/[place] [address] documented in this encounter Visit Diagnoses Diagnosis Type 2 diabetes mellitus with stage 3 ch ronic kidney disease, with long-term current use of insulin documented in this encounter Care Teams Telesales Advisor Relationship Specialty Start Date End Date Amanda Barnett DO PCP - General Family Medicine 06/19/[address] [place] [address] documented as of this encounter
--- OUTSIDE RECORDS SUMMARY | 2022-02-02 00:31 | XMS_ITS | Encounter Summary ---
:1950 Author Organization [facility] [place] [address] Care Team Providers Name Role Phone Gerry Hackett MD Primary Care Provider [phone] Encounter Details Date Type Department Care Team Description 08/01/2016 Orders Only Endocrinology at [facility] C Diane Serra APR[place] [facility] [place] [address] ENDOCRINOLOGY DEPT. [phone] [place], [place] [address] (Wo rk) Social History Tobacco [...] 04/04/2022 Office Visit Dermatology Celena Salazar MD [facility] ER DR THERESE LEOS-DERMAT [place], [place] [address] (Wo rk) documented as of this encounter Visit Diagnoses Not on filedocumented in this encounter Care Teams Home Comfort Advisor Relationship Specialty Start Date End Date Gerry Hackett MD PCP - General 03/14/10 06/18/[address] [place] [address] documented as of this encounter
--- OUTSIDE RECORDS SUMMARY | 2022-02-02 00:31 | XMS_ITS | Encounter Summary ---
:1950 Author Organization [facility] [place] [address] Care Team Providers Name Role Phone Amanda Barnett DO Primary Care Provider Encounter Details Date Type Department Care Team Description 06/04/2017 Telephone Dermatology at [facility] Melita Castillo PA [address] [place] [address] [facility] [phone] [place], [place] [address] (Wo rk) Social History Tobacco Use Types Packs/Day Years Used Date Former Smoker Cigarettes Quit: 04/04/19 99 Smokeless Tobacco: Never Used Alcohol Use Standard Drinks/Week Comments No 0 (1 standard drink = 0.6 oz pure alcoho l) Sex Assigned at Date Recorded Not on file documented as of this encounter Miscellaneous Notes Telephone Encounter - Camille Taylor - 06/04/2017 3:03 PM EST Pt scheduled on 06/19/17 Telephone Encounter - Camille Taylor - 06/04/2017 2:51 PM EST Pennie called in and has an area on the bridge of her nose, just below where her glasses rest, that is hard. She is asking if it would be appropriate to use fluorouracil (EFUDEX) 5 % Cream on the area. She advised that she picks at it and it isn't going away and it is irritating. She provided her call back number of [phone] documented in this encounter Plan of Treatment Upcoming Encounters Date Type Specialty Care Team Description 04/04/2022 Office Visit Dermatology Celena Salazar MD [facility] ER [address] THERESE LEOS-DERMAT [place], [place] [address] (Wo rk) documented as of this encounter Visit Diagnoses Not on filedocumented in this encounter Care Teams Crusher Dry Ground Mica Relationship Specialty Start Date End Date Amanda Barnett DO PCP - General Family Medicine 06/19/[address] [place] [address] documented as of this encounter
--- OUTSIDE RECORDS SUMMARY | 2022-02-02 00:31 | XMS_ITS | Encounter Summary ---
:1950 Author Organization [facility] Address [address] [place] [address] Care Team Providers Name Role Phone Gerry Hackett MD Primary Care Provider Encounter Details Date Type Department Care Team Description 09/25/2016 Hospital Encounter Hematology and Maligna nt neoplasm of Oncology [place] [facility] [place], unspecified [facility] lateralit y, unspecified [place] [address] Social History Tobacco Use Types Packs/Day [...] needed. Reported on 09/25/2016 OXYGEN-AIR DELIVERY by [facility].(Non-Drug; 0 SYSTEMS (WALKABOUT 2 Combo Route) route OXYGEN SYSTEM [facility]) as needed. atorvastatin (LIPITOR) 40 Take 40 mg by mouth 0 mg tablet daily. cyanocobalamin, vitamin Take 1,000 mcg by 0 B-12, 250 mcg tablet mouth daily. aspirin 81 mg EC tablet Take 81 mg by mouth 0 daily. pramoxine (PROCTOFOAM) 1 0 03/07/2010 % foam insulin glargine (LANTUS Inject 42 Units 45 mL 3 201501/14/2017 SOLOSTAR) Insulin Pen subcutaneously nightly. glimepiride (AMARYL) 4 mg Take 1 tablet by 180 tablet 3 12/2112/05/2016 Tablet mouth 2 times daily (before meals). insulin glulisine (APIDRA Inject 4-10 Units 15 [...] Visit Dermatology Celena Salazar MD [facility] ER [address] [place], [place] [address] (Wo rk) documented as of this encounter Procedures Procedure Name Priority Date/Time Associated Comments Diagnosis HEMOGRAM STAT 09/25/2016 12:12 Malignant neoplasm Resul ts for this PM EDT of lung, procedure are i n unspecified the results laterality, section. unspecified part of lung DIFFERENTIAL, STAT 09/25/2016 12:12 Malignant neoplasm Resu lts for this AUTOMATED PM EDT of lung, procedure are i n unspecified the results laterality, section. unspecified part of lung CBC (WITH DIFF) STAT 09/25/2016 12:12 Malignant neoplasm PM EDT of lung, unspecified laterality, unspecified part of lung LACTATE DEHYDROGENASE STAT 09/25/2016 12:12 Malignant neopl asm Results for this PM EDT of lung, procedure are i n unspecified the results laterality, section. unspecified part of lung COMPREHENSIVE STAT 09/25/2016 12:12 Malignant neoplasm Resu lts for this METABOLIC PANEL PM EDT of lung, procedure ar e in (NON-FASTING) unspecified the results laterality, section. unspecified part of lung documented in this encounter Results (ABNORMAL) Differential, Automated (09/25/2016 12:12 PM EDT) [facility] Method Time Signature Neutrophils % 74.4 % [facility] Neutr Abs (ANC) 6.14 (H) 1.70 - [facility] 6.10 [facility] x10(3)/[facility] LABORATORY Lymphocytes % 16.1 % [facility] Lymphocytes Abs 1.3 0.9 - 3.2 [facility] x10(3)/[facility] LABORATORY Monocytes % 7.1 % [facility] Monocyte Abs 0.6 0.3 - 0.9 [facility] x10(3)/[facility] LABORATORY Eosinophils % 1.3 % [facility] Eosinophils Abs 0.1 0.0 - 0.4 [facility] x10(3)/[facility] LABORATORY Basophils % 0.7 % [facility] Basophils Abs 0.1 0.0 - 0.1 [facility] x10(3)/[facility] LABORATORY Immature Gran % 0.40 % [facility] Comment: Immature granulocytes(IG's)percentage an d absolute count will include metamyelocytes, myelocytes, and promyelo cytes. Blood smears from CBCs yielding IG's will be scanned manually for concor dance. If this scan disagrees with the automated IG or if promyelocytes are not ed, a manual differential will be performed. Shanae Gran Abs 0.03 0.00 - 0.04 x10(3)/mcL MAR Y [facility]ORATORY Specimen Anatomical Collection Method Collection Time Receive d Time (Source) Location / / Volume Laterality Blood specimen 09/25/2016 12:12 7 (specimen) PM EDT 12:17 PM EDT Resulting Agency Comment Spec In Lab Delbert Greenberg MD HEMATOLOGY ORDERABLES Performing Organization Address City/State/Z[place] [address] (ABNORMAL) Hemogram (09/25/2016 12:12 PM EDT) Analysis Performed At Patho logist Time Signature WBC 8.3 4.0 - 9.5 [facility] x10(3)/[place] LABORATORY RBC 3.84 (L) 4.00 - [facility] 5.21 [facility] x10(6)/[facility] LABORATORY Hemoglobin 10.9 (L) 11.7 - [facility] 15.5 gm/dL [facility] LABORATORY Hematocrit 35.1 (L) 35.7 - [place] 45.8 % [facility] LABORATORY MCV 91.4 82.6 [facility] 94.4 [facility] LABORATORY MCH 28.4 27.1 - [place] [place] 32.0 pg [facility] LABORATORY MCHC 31.1 (L) 31.7 - [facility] 35.0 gm/dL [facility] LABORATORY Platelets 257 145 - 357 [facility] LABORATORY RDWSD 48.3 (H) 37.0 - [facility] 46.0 [facility] LABORATORY RDWCV 14.4 (H) 11.5 - [facility] 14.1 % [facility] LABORATORY MPV 10.6 7.6 - 12.9 [facility] LABORATORY nRBC % Auto 0.0 % [facility] LAB[facility] nRBC Abs Auto 0.000 0.000 - [place] 0.000 [facility] x10(3)/[facility] LABORATORY Specimen Anatomical Collection Method Collection Time Receive d Time (Source) Location / / Volume Laterality Blood specimen 09/25/2016 12:12 7 (specimen) PM EDT 12:17 PM EDT Resulting Agency Comment Spec In Lab Delbert Greenberg MD HEMATOLOGY ORDERABLES Performing Organization Address City/State/ZIP [place] [address] Lactate Dehydrogenase (09/25/2016 12:12 PM EDT) P athologist Signature LDH 174 110 - 220 [facility] unit/L [facility] LABORATORY Specimen Anatomical Collection Method Collection Time Receive d Time (Source) Location / / Volume Laterality Blood specimen 09/25/2016 12:12 7 (specimen) PM EDT 12:17 PM EDT Resulting Agency Comment Spec In Lab Delbert Greenberg MD CHEMISTRY ORDERABLES Performing Organization Address City/State/ZIP [place] [address] (ABNORMAL) Comprehensive metabolic panel (non-fasting) (09/25/2016 12:12 PM EDT) athologist Signature Glucose Lvl 126 65 - 199 [facility] mg/dL [facility]ATORY Comment: Diabetes: >=200 mg/dL plus symp toms BUN 28 (H) 8 - 18 mg/dL [facility] Creatinine 1.32 (H) 0.70 - 1.20 mg/dL [facility] Comment: Please note that the pediatric reference intervals supplied above were not validated at [facility]. Results from pediatri c patients should be interpreted in conjunction to the patient's age, height and muscle mass. Sodium 142 135 - 145 mmol/L [facility] Potassium 4.5 3.5 - 5.0 mmol/L [facility] Comment: Please note: ??Patients with WBC >100,00 0 may have falsely elevated Potassium levels. ??For accurate Potassium quantif ication in these patients send serum separator tube (gold top) for subsequent determinations. ??Contact the Clinical Chemistry Laboratory if there are any qu estions. Chloride 102 98 - 107 mmol/L [facility] CO2 27 22 - 31 mmol/L [facility] Anion Gap 13 5 - 15 mmol/L [facility] Calcium 9.4 8.5 - 10.5 mg/dL [facility] Total Protein 7.2 6.1 - 8.0 gm/dL [facility] Albumin 4.0 3.2 - 5.2 gm/dL [facility] AST 10 0 - 30 unit/L [facility] ALT 10 0 - 30 unit/L [facility] Alk Phos 104 40 - 104 unit/L [facility] Total Bilirubin <0.2 (L) 0.2 - 1.3 mg/dL [facility] LAB[facility] Bili, Direct <0.1 0.0 - 0.3 mg/dL [facility] Estimated GFR 40 (L) >=60 [facility] Comment: This estimated GFR (eGFR) [...] the following links into your internet browser. http://Sensiotec/DHnkdep [email or web address] Specimen Anatomical Collection Method Collection Time Receive d Time (Source) Location / / Volume Laterality Blood specimen 09/25/2016 12:12 7 (specimen) PM EDT 12:17 PM EDT Resulting Agency Comment Spec In Lab Delbert Greenberg MD CHEMISTRY ORDERABLES Performing Organization Address City/State/ZIP [place] [address] documented in this encounter Visit Diagnoses Diagnosis Malignant neoplasm of lung, unspecified laterality, unspecified part of lung documented in this encounter Care Teams B2B Managed Service Sales Exec Relationship Specialty Start Date End Date Gerry Hackett MD PCP - General 03/14/10 06/18/17 [address] [place] [address] documented as of this encounter
--- OUTSIDE RECORDS SUMMARY | 2022-02-02 00:31 | XMS_ITS | Encounter Summary ---
:1950 Author Organization [facility] [place] [address] Care Team Providers Name Role Phone Gerry Hackett MD Primary Care Provider [phone] Encounter Details Date Type Department Care Team Description 05/06/2017 Laboratory Appointment Lab 3L [facility] Type 2 diabetes mellitus with stage 2 chronic kidney disease, with long-term current use of insulin; [facility] Type 2 diabetes mellitus wit hout complication, unspecified fdc insulin use status; [facility] [place] [address] Social History Tobacco Use Types Packs/Day Years [...] 04/04/2022 Office Visit Dermatology Celena Salazar MD [facility] ER [address] [place], [place] [address] (Wo rk) documented as of this encounter Procedures Procedure Name Priority Date/Time Associated Diagnosis Comme nts URINALYSIS Routine 05/06/2017 10:26 Results for this MICROSCOPIC EXAM AM EST procedure a re in the results section. URINALYSIS WITH Routine 05/06/2017 10:26 Frequency of Results for this REFLEX CULTURE AM EST urination procedure are in the results section. U ALBUMIN/CRE RATIO Routine 05/06/2017 10:26 Type 2 diabetes R esults for this AM EST mellitus without procedure a re in complication, the results unspecified long section. term insulin use status CREATININE Routine 05/06/2017 10:18 Type 2 diabetes Results for this AM EST mellitus with stage procedur e are in 2 chronic kidney the results disease, with section. long-term current use of insulin POTASSIUM Routine 05/06/2017 10:18 Type 2 diabetes Results for this AM EST mellitus with stage procedur e are in 2 chronic kidney the results disease, with section. long-term current use of insulin LDL CHOLESTEROL, Routine 05/06/2017 10:18 Type 2 diabetes Resu lts for this DIRECT AM EST mellitus with stage procedur e are in 2 chronic kidney the results disease, with section. long-term current use of insulin HEMOGLOBIN A1C Routine 05/06/2017 10:18 Type 2 diabetes Result s for this AM EST mellitus with stage procedur e are in 2 chronic kidney the results disease, with section. long-term current use of insulin documented in this encounter Results (ABNORMAL) Urinalysis Microscopic Exam (05/06/2017 10:26 AM EST) Analysis Performed At Patho logist Time Signature RBC UA <1 0 - 4 /HPF [facility] WBC UA 2 0 - 5 /HPF [facility] Bacteria UA Rare (A) None /HPF [facility] Squam Epith UA 2 <=4 /HPF [facility] Specimen (Source) Anatomical Collection Method Collection Time Re ceived Time Location / / Volume Laterality Urine specimen 05/06/2017 10:26 8 obtained by clean AM EST 10:[address] catch procedure (specimen) Resulting Agency Comment Spec In Lab E Bilotta LASER/ELECTRO OPTICS TECHNICIAN URINE ORDERABLES Performing Organization Address City/State/[place] [address] (ABNORMAL) Urinalysis with reflex Culture (05/06/2017 10:26 AM EST) Patholo gist Method Time Signature Glucose UA Negative Negative [facility] Protein UA Negative Negative [facility] mg/dL [facility] Bilirubin UA Negative Negative [facility] mg/dL [facility] Comment: Clinical correlation required for positi ve Urine Bilirubin results as false positive may occur with some drugs and d rug related products. If a false positive is suspected a serum total bili rivers should be considered if clinically indicated. Urobilinogen UA Normal Normal mg/dL [facility] pH UA 5.0 5.0 - 8.0 [facility] Blood UA Negative Negative mg/dL [facility] Ketones UA Negative Negative mg/dL [facility] Nitrite UA Negative Negative [facility] Leukocytes UA Trace (A) Negative [facility] LABORATORY Appearance UA Hazy (A) Clear [facility] Spec [place] UA 1.016 1.002 - 1.030 [facility] Color UA Yellow Yellow [facility] Culture Reflexed No [facility] Specimen (Source) Anatomical Collection Method Collection Time Re ceived Time Location / / Volume Laterality Urine specimen 05/06/2017 10:26 8 obtained by clean AM EST 10:[address] catch procedure (specimen) Resulting Agency Comment Spec In Lab Diane Serra LASER/ELECTRO OPTICS TECHNICIAN URINE ORDERABLES Performing Organization Address City/State/ZIP Code Phon e Number [place] [id number] U Albumin/Cre Ratio (05/06/2017 10:26 AM EST) P athologist Signature Alb/Cr Ratio, 19 0 - 29 [facility] Random mcg/mg Cr [facility] Comment: Reference Ranges: <30 mcg/mg: [...] 362 U Albumin Conc, Random 20.4 mg/L [facility] U Creatinine 105 mg/dL [facility] Specimen Anatomical Collection Method Collection Time Receive d Time (Source) Location / / Volume Laterality Urine specimen 05/06/2017 10:26 8 (specimen) AM EST 10:35 AM EST Resulting Agency Comment Spec In Lab E Bilotta LASER/ELECTRO OPTICS TECHNICIAN URINE ORDERABLES Performing Organization Address City/[facility]/ZIP [facility] Phon e Number [address] LDL Cholesterol, Direct (05/06/2017 10:18 AM EST) P athologist Signature LDL Chol 77 <=190 [facility] mg/dL [facility] Specimen Anatomical Collection Method Collection Time Receive d Time (Source) Location / / Volume Laterality Blood specimen 05/06/2017 10:18 8 (specimen) AM EST 10:28 AM EST Resulting Agency Comment Spec In Lab E Bilotta LASER/ELECTRO OPTICS TECHNICIAN CHEMISTRY ORDERABLES Performing Organization Address [facility] Phon e Number [address] Potassium (05/06/2017 10:18 AM EST) P athologist Signature Potassium 5.0 3.5 - 5.0 [facility] mmol/L [facility] Comment: Please note: ??Patients with [...] EST Resulting Agency Comment Spec In Lab E Bilotta LASER/ELECTRO OPTICS TECHNICIAN CHEMISTRY ORDERABLES Performing Organization Address City/[facility]/[place] [address] (ABNORMAL) Hemoglobin A1c (05/06/2017 10:18 AM EST) Analysis Performed At Patho logist Time Signature Hemoglobin A1C 8.0 (H) 4.3 - 5.6 [facility] Comment: Reference Range: 4.3 [...] Mellitus, Diabetes Care 2013; 36: Suppl. 1, S67-51 Est Avg Gluc 183 mg/dL [facility] Comment: eAG equivalents for HbA1c percentages: HbA1c(%) ?eAG(mg/dL) 6.0 ?126 6.5 ?140 7.0 ?154 7.5 ?169 8.0 ?183 8.5 ?197 9.0 ?212 9.5 ?226 10.0 ? 240 Limitations: The eAG calculation has not been validated on women, individuals below 18 years old and above 70 years old, and individuals with hemoglobinopathies. Additional resources are available on [facility] website. Chevy PARTIDA, Jr J, Syed R, et al. ??Tr anslating the A1C assay into estimated average glucose values. ??Diabetes Care 2008:31(8):3602-2057. Specimen Anatomical Collection Method Collection Time Receive d Time (Source) Location / / Volume Laterality Blood specimen 05/06/2017 10:18 8 (specimen) AM EST 10:28 AM EST Resulting Agency Comment Spec In Lab darleen Romobriana LASER/ELECTRO OPTICS TECHNICIAN CHEMISTRY ORDERABLES Performing Organization Address City/[facility]/ZIP [facility] [place] [address] (ABNORMAL) Creatinine (05/06/2017 10:18 AM EST) Analysis Performed At Patho [facility] Time Signature Creatinine 1.50 (H) 0.70 - [facility] 1.20 mg/dL [facility] Estimated GFR 35 (L) >=60 [facility] Comment: The reported eGFR should be multiplied b y 1.2 for patients. The MDRD is not an appropriate measure o f renal function for patients with body mass extremes or in patients with acute kidney failure. http://Stkr.it/DHnkdep http://Stkr.it/DHMCnkf Specimen Anatomical Collection Method Collection Time Receive d Time (Source) Location / / Volume Laterality Blood specimen 05/06/2017 10:18 8 (specimen) AM EST 10:28 AM EST Resulting Agency Comment Spec In Lab Eliana Ponce LASER/ELECTRO OPTICS TECHNICIAN CHEMISTRY ORDERABLES Performing Organization Address City/[facility] [place] [address] documented in this encounter Visit Diagnoses Diagnosis Type 2 diabetes mellitus with stage 2 ch ronic kidney disease, with long-term current use of insulin Type 2 diabetes mellitus without complic ation, unspecified fdc insulin use status Frequency of urination Urinary frequency documented in this encounter Care Teams Powerplant Operator Relationship Specialty Start Date End Date Gerry Hackett MD PCP - General 03/14/10 06/18/17 [address] [place] [address] documented as of this encounter
--- OUTSIDE RECORDS SUMMARY | 2022-02-02 00:32 | XMS_ITS | Encounter Summary ---
:1950 Author Organization [facility] Address [address] [place] [address] Care Team Providers Name Role Phone Gerry Hackett MD Primary Care Provider [phone] Reason for Visit Reason Comments Diabetes Encounter Details Date Type Department Care Team Description 11/11/2013 Office Visit Endocrinology at [facility] C Diane Serra, Type II or [facility] BILLPOSTING SUPERVISOR unspecified type Drive [facility] [place] [address] without mention of [phone] ENDOCRINOLOGY complication, not DEPT. stated as [place], [place] [address] uncontrolled (Primary [phone] Dx) (Work) Social History Tobacco Use Types Packs/Day Years Used Date Former Smoker Quit: 04/04/19 99 Smokeless Tobacco: Never Used Alcohol Use Standard Drinks/Week Comments No 0 (1 standard drink = 0.6 oz pure alcoho l) Sex Assigned at Date Recorded Not on file documented as of this encounter Last Filed Vital Signs Vital Sign Reading Time Taken Comments Blood Pressure 126/78 11/11/2013 2:18 PM EDT Pulse 90 11/11/2013 2:18 PM EDT Temperature - - Respiratory Rate - - Oxygen Saturation - - Inhaled Oxygen Concentration - - Weight 141.7 kg (312 lb 6.4 oz) 11/11/2013 2:18 PM EDT Height - - Body Mass Index 52.05 08/26/2013 1:47 PM EDT documented in this encounter Patient Instructions Patient InstructionsDiane Serra BILLPOSTING SUPERVISOR - 11/11/2013 2:50 PM EDT Check glucose before evening meal. Take apidra if glucose is above 140 Nice job lowering HGBA1C! documented in this encounter Progress Notes Diane Serra APRN - 11/11/2013 3:43 PM EDT DATE OF VISIT: 11/11/2013 REASON FOR VISIT: Followup type 2 DM in fair and improved control. Also, hyperlipidemia, obesity, hypertension, GERD. BRIEF HISTORY: Presents and states she is hoping her hemoglobin A1c is lower. DATE OF DIAGNOSIS OF DIABETES: In 06/2003 on routine blood test, had fatigue. DIABETES REGIMEN: Lantus 34 units in p.m., sitagliptin 100 mg daily. Apidra, she states she is not consistent with taking the Apidra. SBGM: Agrees to check up to three times a day. 24-HOUR MEAL PLAN: Breakfast is toast. Morning snack is cheese and crackers or a piece of cheese cake. Lunch was fish fillet or a small Israeli nance, tends to graze. Afternoon snack varies. Evening meal with soup and crackers. Evening snack Jello or yogurt ice cream. PHYSICAL ACTIVITY: Not much. Ambulates with assistance of a wheeled walker. PAST MEDICAL HISTORY: Significant for small lung cancer, had left lobe removed. REVIEW OF SYSTEMS: Depression and Mood: Overall is doing okay. At home is her son who has schizophrenia and diabetes and obesity. Eyes: No recent vision changes. No recent headaches or chest pain. She does have shortness of breath and uses oxygen as needed. Not using it during today's office visit, but she states she needs to stop often when she does not use it and sit on the wheeled walker. Sleep pattern is okay. Extremities. She has some joint pains. PHYSICAL EXAMINATION: Appearance: She is obese with a very large central girth. Weight 312 pounds. Blood pressure 126/78. Eyes: No retinopathy by green light exam. Neck: No thyromegaly or lymphadenopathy. Heart: Regular rate and rhythm. Lungs: No breath sounds on the left. Clear on right. Feet: Skin is normal. Pulses are normal. Neuro: Normal sensation to 10 g of pressure. Hemoglobin A1c 8.2%, previous was 9.7% in July. GFR is in the 50s. IMPRESSION AND PLAN: Diabetes mellitus type 2 in fair and improved control. Encouraged the patient to consistently check glucose level before evening meal and take up to 8 units of Apidra before evening meal. Blood pressure is at goal. This was a 30-minute office visit with 29 minutes spent counseling [id number] with the patient in the management of glucose levels, writing prescription for glucose test strips three times a day, encouraging to bring meter to next appointment, and encouraging to be consistent with Apidra before evening meal and if needed before other meals. Return to office in three months. Will check hemoglobin A1c. Recent Results (from the past 72 hour(s)) HEMOGLOBIN A1C Component Value Range Hemoglobin A1C 8.2 (*) <=5.6 % Est Avg Gluc 189 documented in this encounter Plan of Treatment Upcoming Encounters Date Type Specialty Care Team Description 04/04/2022 Office Visit Dermatology Celena Salazar MD [facility] [address] [place], [place] [address] (Wo rk) documented as of this encounter Procedures Procedure Name Priority Date/Time Associated Diagnosis Comme nts HEMOGLOBIN A1C Routine 11/11/2013 1:38 PM Type II or unspecifi ed Results for this EDT type diabetes mellitus proce dure are in without mention of the resul ts complication, not section. stated as uncontrolled documented in this encounter Results (ABNORMAL) Creatinine (02/17/2014 12:00 PM EDT) athologist Signature Creatinine 1.15 0.70 - 1.20 CERNER mg/dL MILLENNIUM Comment: Please note that the pediatric reference intervals supplied above were not validated at [facility]. Results from pediatri c patients should be interpreted in conjunction to the patient's age, height and muscle mass. Estimated GFR 47 (L) >=60 CERNER MILLENNIU M Comment: This estimated GFR (eGFR) value was [...] the following links into your internet browser. [email or web address] Specimen Anatomical Collection Method Collection Time Receive d Time (Source) Location / / Volume Laterality Blood specimen 02/17/2014 12:00 4 (specimen) PM EDT 12:12 PM EDT Resulting Agency Comment Spec In Lab Pratik Cee MD CHEMISTRY ORDERABLES Performing Organization Address City/[facility]/ZIP Code Phon e Number [address] CERNER MILLENNIUM TSH (02/17/2014 12:00 PM EDT) P athologist Signature TSH 2.58 0.27 - 4.20 CERNER mcIU/mL [facility] Specimen Anatomical Collection Method Collection Time Receive d Time (Source) Location / / Volume Laterality Blood specimen 02/17/2014 12:00 4 (specimen) PM EDT 12:12 PM EDT Resulting Agency Comment Spec In Lab Pratik Cee MD CHEMISTRY ORDERABLES Performing Organization Address City/[facility] Phon e Number [address] [facility] MILLENNIUM LDL Cholesterol, Direct (02/17/2014 12:00 PM EDT) P athologist Signature LDL Chol 94 <=99 mg/dL CERNER Direct MILLENNIUM Comment: The National Cholesterol Education Progr am (NCEP) has set the following guidelines for LDL Cholesterol: Reference range: ?? Optimal: ?<100 mg/dL ?? Near Optimal/Above Optimal: ?? 100-1 29 mg/dL ?? Borderline high: ?130-159 mg/dL ?? High: ? 160-189 mg/dL ?? Very high: ?>wq=592 mg/dL ARIADNE 2001: 285(19):1456-3734 Specimen Anatomical Collection Method Collection Time Receive d Time (Source) Location / / Volume Laterality Blood specimen 02/17/2014 12:00 4 (specimen) PM EDT 12:12 PM EDT Resulting Agency Comment Spec In Lab Pratik Cee MD CHEMISTRY ORDERABLES Performing Organization Address City/[facility]/ZIP Code Phon e Number [place] [address] CERNER MILLENNIUM HDL/Cholesterol Profile (02/17/2014 12:00 PM EDT) P athologist Signature Chol, Total 168 <=199 mg/dL CERNER MILLENNIUM Comment: Recommendations of the NCEP Adult Treatm ent Panel for the following risk cutoff thresholds for the [place] populatio n: Desirable: <200 mg/dL Borderline High: 200-239 mg/dL High: > or = 240 mg/dL HDL 53 >=40 mg/dL CERNER MILLENNIUM Comment: Reference range: ??Low HDL: ?? < 40 mg/dL ??Normal: ?40-60 mg/dL ??Desirable: > 60 mg/dL ARIADNE 2001; 285(19):0599-9781 Chol/HDL Ratio 3.2 ratio CERNER MILLENNI UM Comment: A Cholesterol to HDL ratio below 4:1 is desirable. ??Studies suggest that increased CAD risk occurs at ratios abov e 5 for females and above 6 for men. ? [place] [employer] Association ??(htt p://www.americanheart.org) ? Kathryn Int Med, 1994; 121:641 ? AM J Med, 1998; 105(1A):48S Specimen Anatomical Collection Method Collection Time Receive d Time (Source) Location / / Volume Laterality Blood specimen 02/17/2014 12:00 4 (specimen) PM EDT 12:12 PM EDT Resulting Agency Comment Spec In Lab Pratik Cee MD CHEMISTRY ORDERABLES Performing Organization Address City/State/ZIP Code Phon e Number [facility] [place] [address] [facility] (ABNORMAL) Hemoglobin A1c (02/17/2014 12:00 PM EDT) Analysis Performed At [facility] Time Signature Hemoglobin A1C 9.3 (H) <=5.6 % [facility] Comment: Reference Range: 4.3 - 5.6% 5.7 [...] Mellitus, Diabetes Care 2013; 36: Suppl. 1, S67-47 Est Avg Gluc 220 mg/dL [facility] Comment: eAG equivalents for HbA1c percentages: HbA1c(%) ?eAG(mg/dL) 6.0 ?126 6.5 ?140 7.0 ?154 7.5 ?169 8.0 ?183 8.5 ?197 9.0 ?212 9.5 ?226 10.0 ? 240 Limitations: The eAG calculation has not been validated on women, individuals below 18 years old and above 70 years old, and individuals with hemoglobinopathies. Additional resources are available on ADA website: [email or web address] Chevy PARTIDA, Jr J, Syed R, et al. ??Tr anslating the A1C assay into estimated average glucose values. ??Diabetes Care 2008:31(8):3201-2040. Specimen Anatomical Collection Method Collection Time Receive d Time (Source) Location / / Volume Laterality Blood specimen 02/17/2014 12:00 4 (specimen) PM EDT 12:12 PM EDT Resulting Agency Comment Spec In Lab Pratik Cee MD CHEMISTRY ORDERABLES Performing Organization Address City/State/[place] [address] [facility] Hemoglobin A1c (11/11/2013 1:38 PM EDT) Analysis Performed At Patho logist Time Signature Hemoglobin A1C 8.2 (H) <=5.6 % [facility] Comment: Reference Range: 4.3 ? 5.6% 5.7 ? 6.4% - Increased Risk of Developing Diabetes Mellitus 6.5% - Consistent with diagnosis of Diab etes Mellitus In the absence of hyperglycemia (i.e. pl asma glucose > 200 mg/dL) or classic symptoms of hyperglycemia a repeat measu rement of HbA1c should be performed on a separate sample to confirm the diagnos is. Diagnosis and Classification of Diabetes Mellitus, Diabetes Care 2013; 36: Suppl. 1, S67-90 Est Avg Gluc 189 mg/dL [facility] Comment: eAG equivalents for HbA1c percentages: HbA1c(%) ?eAG(mg/dL) 6.0 ?126 6.5 ?140 7.0 ?154 7.5 ?169 8.0 ?183 8.5 ?197 9.0 ?212 9.5 ?226 10.0 ? 240 Limitations: The eAG calculation has not been validated on women, individuals below 18 years old and above 70 years old, and individuals with hemoglobinopathies. Additional resources are available on [facility] website: [email or web address] It [email or web address] Body MD/DHMCadacalc Chevy PARTIDA, Jr J, Syed R, et al. ??Tr anslating the A1C assay into estimated average glucose values. ??Diabetes Care 2008:31(8):6322-5433. Specimen Anatomical Collection Method Collection Time Receive d Time (Source) Location / / Volume Laterality Blood specimen 11/11/2013 1:38 PM 014 2:08 (specimen) EDT PM EDT Resulting Agency Comment Spec In Lab Pratik Cee MD CHEMISTRY ORDERABLES Performing Organization Address City/State/ZIP Code Phon e Number [address] LABORATORY [facility] documented in this encounter Visit Diagnoses Diagnosis Type II or unspecified type diabetes татьяна litus without mention of complication, not stated as uncontrolled - Primary documented in this encounter Care Teams Business Services Clerk Relationship Specialty Start Date End Date Gerry Hackett MD PCP - General 03/14/10 06/18/[address] [place] [address] documented as of this encounter
--- OUTSIDE RECORDS SUMMARY | 2022-02-02 00:32 | XMS_ITS | Encounter Summary ---
:1950 Author Organization [facility] [place] [address] Care Team Providers Name Role Phone Gerry Hackett MD Primary Care Provider [phone] Encounter Details Date Type Department Care Team Description 02/15/2015 Hospital Encounter Outpatient Surgery Vincent Lawler ge-related [facility] Center Ana Mello MD cataract of both [facility] [place] [address] [phone] Social History Tobacco Use Types Packs/Day Years Used Date Former Smoker Quit: 04/04/19 99 Smokeless Tobacco: Never Used Alcohol Use Standard Drinks/Week Comments No 0 (1 standard drink = 0.6 oz pure alcoho l) Sex Assigned at Date Recorded Not on file documented as of this encounter Last Filed Vital Signs Vital Sign Reading Time Taken Comments Blood Pressure 133/105 02/15/2015 8:49 AM EDT Pulse 94 02/15/2015 8:49 AM EDT Temperature 36.8 ??C (98.2 ??F) 02/15/2015 8:49 AM EDT Respiratory Rate 18 02/15/2015 8:49 AM EDT Oxygen Saturation 100% 02/15/2015 8:49 AM EDT Inhaled Oxygen Concentration - - Weight 139.7 kg (308 lb) 02/15/2015 7:27 AM EDT Height 167.6 cm (5' 6) 02/15/2015 7:27 AM EDT Body Mass Index 49.71 02/15/2015 7:27 AM EDT documented in this encounter Discharge Instructions Discharge InstructionsMeche Banuelos RN - 02/15/2015 7:08 AM EDT Home Care Instructions after Cataract Surgery Do not remove the eye patch or shield, unless instructed to do so. Take it easy today. Avoid strenuous activities. Bring your eye drops and the Eye Care Kit with you to each visit after your surgery. Resume all your regular medicines. It is normal to have a scratchy sensation or mild pain in your eye. If you develop vomiting or severe pain not relieved with medication please call. Your appointment with Dr. Lawler is in the Eye Clinic Desk 4B tomorrow. You may have received medication before and/or during your procedure, which affect your judgement and reaction time therefore for the next 24 hours: You may be unsteady on your feet, be careful on stairs. Do not smoke if you are alone. Do not drink alcoholic beverages. Do not drive or operate any type of machinery. Do not make important legal decisions. If you are having any problems or additional concerns or questions please call: [phone] 8am to 5pm. After 5pm, please call [phone] and ask for opthalmology MD confectionery maker. documented in this encounter Medications at Time of Discharge Medication Sig Dispensed Refills Start Date End Date lisinopril Take 15 mg by mouth 0 08/24/2014 (PRINIVIL;ZESTRIL) 30 mg daily. Tablet PROAIR HFA 90 Inhale 2 puffs into 0 02/27/2013 mcg/actuation inhaler the lungs as needed. Reported on 09/25/2016 OXYGEN-AIR DELIVERY by [facility].(Non-Drug; 0 SYSTEMS (WALKABOUT 2 Combo Route) route OXYGEN SYSTEM [facility] as needed. atorvastatin (LIPITOR) 40 Take 40 mg by mouth 0 mg tablet daily. cyanocobalamin, vitamin Take 1,000 mcg by 0 B-12, 250 mcg tablet mouth daily. aspirin 81 mg EC tablet Take 81 mg by mouth 0 daily. pramoxine (PROCTOFOAM) 1 0 03/07/2010 % foam insulin glulisine (APIDRA Inject 4-10 Units 15 mL 3 06/201405/06/2017 SOLOSTAR) 100 unit/mL subcutaneously 2 Insulin Pen times daily (before meals). metFORMIN (GLUCOPHAGE-XR) Take 2 tablets by 360 tablet 3 02/17/2015 500 mg Tablet Sustained mouth 2 times daily Release 24 hr (with meals). Blood Sugar Diagnostic 1 each by [...] mg tablet documented as of this encounter H&P Notes Vincent Lawler MD - 02/15/2015 7:16 AM EDT Pennie Rodriguez reports no new symptoms or other change in her health since her preoperative history and physical exam was performed yesterday. Her exam reveals no significant changes. She is breathing comfortably, without cyanosis or use of accessory muscles. Vital signs are within acceptable parameters. The eyes are quiet without discharge or other signs of active infection. The sedation plan was reviewed with Pennie Turner Michael and she expressed understanding and agreement. Vincent Lawler MD - 02/15/2015 7:15 AM EDT See H&P from Gerry Hackett, done yesterday. documented in this encounter Miscellaneous Notes Op Note - Vincent Lawler MD - 02/15/2015 8:45 AM EDT Pre-op diagnosis: Nuclear sclerotic cataract, left eye Post-op diagnosis: Same Surgeon: Vincent Lawler MD Name of procedure: Phacoemulsification of cataract with posterior chamber intraocular lens implant, left eye Anesthesia: Subtenons retrobulbar block, IV sedation Description of procedure: The left eye was marked preoperatively. A latex-free procedure was performed. The patient was brought into the operating suite, positioned in the supine position, and the patient's identity was verified by the surgeon and operative team. Monitors were placed by the mold dresser. Topical anaesthetic was placed in the left eye. The patient's left eye was prepped with Betadine, including a drop of Betadine in the cul-de-sac. The eye was draped in the usual fashion for intraocular surgery, isolating the eyelashes from the surgical field. An open wire lid speculum was placed. The operating microscope was positioned. A buttonhole incision was made in conjunctiva and tenons capsule in the inferonasal quadrant. Bleeders cauterized. Subtenons retrobulbar anesthesia was administered through a cannula with 2.5cc of 2% lidocaine mixed with 0.75% bupivicaine. Adequate anesthesia was obtained. A superior conjunctival peritomy was made, followed by gentle hemostasis with eraser-tip bipolar cautery. A half-thickness scleral groove incision was made 1mm posterior to the limbus. The eye was entered at the 95 degree meridian with a 2.4mm keratome. A limbal stab incision was made at 2:00. Aqueouswas exchanged for Provisc. A continuous curvilinear capsulorhexis was made with a cystotome. The lens was loosened with hydrodissection. Viscoat was instilled to coat the corneal endothelium. The nucleus was emulsified with the phacoemulsification handpiece in a [id number] fashion. Residual cortical material was removed with the automated irrigation/aspiration unit. The posterior capsule was polished. The capsular bag was inflated with viscoelastic. An Model SN60WF posterior chamber lens with a 6mm acrylic optic was inspected and found to be without defects, placed in the [place] external relations director cartridge, and injected into the capsular bag without difficulty. The lens was secure and well-centered. Viscoelastic was thoroughly removed with the irrigation/aspiration handpiece. The anterior chamber was filled with BSS to normal intraocular pressure. The wounds were checked for leakage and there was none. Conjunctiva was closed with cautery. One drop of Vigamox, Cosopt, and Maxitrol ointment were instilled, followed by a patch and shield over the operated eye. The patient was taken to [facility] in stable condition. Lens: SN60WF +19.0 diopter PCIOL EBL <1cc Specimen Removed: None (cataract emulsified, not saved as specimen) Drains: None Surgical Closure: Primary Complications: None Attestation: I performed this procedure without the involvement of a resident. documented in this encounter Plan of Treatment Upcoming Encounters Date Type Specialty Care Team Description 04/04/2022 Office Visit Dermatology Celena Salazar MD [facility] [address], [place] [address] (Wo rk) documented as of this encounter Procedures Procedure Name Priority Date/Time Associated Comments Diagnosis CATARACT EXTRACTION, Yes 02/15/2015 8:22 AM Age-related nu clear EXTRACAPSULAR, W/ EDT cataract of both LENS INSERTION (WRVU eyes 8.52) POCT FINGERSTICK Routine 02/15/2015 Results for this GLUCOSE procedure are i n the results section. documented in this encounter Results POCT Fingerstick Glucose (02/15/2015) P athologist Signature POC Glucose 143 60 - 199 mg/dl Specimen (Source) Anatomical Location Collection Method / Collectio n Time Received Time / Laterality Volume 02/15/2015 Vincent Lawler MD POINT OF CARE TEST ORDERABLE S documented in this encounter Visit Diagnoses Diagnosis Age-related nuclear cataract of both eye s Senile nuclear sclerosis documented in this encounter Administered Medications Inactive Administered Medications - up to 3 most recent administrations Medication Order MAR Action Action Date Dose Rate Site cyclopentolate (CYCLODRYL) 1 % Given 02/15/2015 7:[address] op ophthalmic solution 1 drop 1 drop, Left Eye, EVERY 5 MIN, 3 doses, First dose on Sat02/15/15 at 0730, Last dose on Sat02/15/15 at 0740, 1 drop to the operative eye every 5 minutes times 3. Start day of surgery, Day of Surgery (Day of Procedure), Routine Given 02/15/2015 7:45 AM EDT 1 drop Given 02/15/2015 7:26 AM EDT 1 drop ketorolac tromethamine (ACULAR) 0.5 % Given 02/15/2015 7:54 AM E DT 1 drop ophthalmic solution 1 drop 1 drop, Left Eye, ONCE, 1 dose, On Sat02/15/15 at 0730, 1 drop to the operative eye once, start on day of surgery, Day of Surgery (Day of Procedure), Routine lactated ringers infusion 1,000 New Bag 02/15/2015 7:36 AM EDT 1,000 mLs 100 mL/hr mL 1,000 mL, at 100 mL/hr, Intravenous, CONTINUOUS, Starting on Sat02/15/15 at 0730, Until Sat02/15/15 at 0856, Day of Surgery (Day of Procedure) moxifloxacin (VIGAMOX) 0.5 % ophthalmic Given 02/15/2015 7:57 AM EDT 1 drop solution 1 drop 1 drop, Left Eye, EVERY 5 MIN, 3 doses, First dose on Sat02/15/15 at 0730, Last dose on Sat02/15/15 at 0740, 1 drop to the operative eye every 5 minutes times 3. Start on the day of surgery., Day of Surgery (Day of Procedure), Routine Given 02/15/2015 7:47 AM EDT 1 drop Given 02/15/2015 7:27 AM EDT 1 drop PHENYLephrine (MYDFRIN) 2.5 % ophthalmic Given 02/15/2015 7:52 A M EDT 1 drop solution 1 drop 1 drop, Left Eye, EVERY 5 MIN, 3 doses, First dose on Sat02/15/15 at 0730, Last dose on Sat02/15/15 at 0740, 1 drop to the operative eye every 5 minutes times 3. Start on the day of surgery., Day of Surgery (Day of Procedure), Routine Given 02/15/2015 7:39 AM EDT 1 drop Given 02/15/2015 7:25 AM EDT 1 drop prednisoLONE acetate (PRED FORTE) 1 % Given 02/15/2015 7:34 AM E DT 1 drop ophthalmic suspension 1 drop 1 drop, Left Eye, ONCE, 1 dose, On Sat02/15/15 at 0730, 1 drop to the operative eye once, start on day of surgery, Day of Surgery (Day of Procedure), Routine documented in this encounter Active and Recently Administered Medications Times are shown in EDT. Scheduled Medication Order 02/13/2015 02/14/2015 02/15/2015 cyclopentolate (CYCLODRYL) 1 % ophthalmic solution 1 drop (COMPL ETED) 0726 (Given - Provider: Meche Banuelos RN)0745 (Given - Provider: Meche Banuelos RN)0754 (Given - Provider: Meche Banuelos RN) 1 drop, Left Eye, EVERY 5 MIN, 3 doses, First dose on Sat02/15/15 at 0730, Last dose on Sat02/15/15 at 0740, 1 drop to the operative eye every 5 minutes times 3. Start day of surgery, Day of Surgery (Day of Procedure), Routine ketorolac tromethamine (ACULAR) 0.5 % ophthalmic solution 1 drop (COMPLETED) 0754 (Given - Provider: Meche Banuelos RN) 1 drop, Left Eye, ONCE, 1 dose, 01/21 at 0730, 1 drop to the operative eye once, start on day of surgery, Day of Surgery (Day of Procedure), Routine moxifloxacin (VIGAMOX) 0.5 % ophthalmic solution 1 drop (COMPLET ED) 0727 (Given - Provider: Meche Banuelos RN)0747 (Given - Provider: Meche Banuelos RN)0757 (Given - Provider: Meche Banuelos RN) 1 drop, Left Eye, EVERY 5 MIN, 3 doses, First dose on Sat02/15/15 at 0730, Last dose on 10/27/15 at 0740, 1 drop to the operative eye every 5 minutes times 3. Start on the day of surgery., Day of Surgery (Day of Procedure), Routine PHENYLephrine (MYDFRIN) 2.5 % ophthalmic solution 1 drop (COMPLE MARCO) 0725 (Given - Provider: Meche Banuelos, RN)0739 (Given - Provider: Meche Banuelos RN)0752 (Given - Provider: Meche Banuelos, BINDU) 1 drop, Left Eye, EVERY 5 MIN, 3 doses, First dose on Sat02/15/15 at 0730, Last dose on Tu02/15/15 at 0740, 1 drop to the operative eye every 5 minutes times 3. Start on the day of surgery., Day of Surgery (Day of Procedure), Routine prednisoLONE acetate (PRED FORTE) 1 % ophthalmic suspension 1 drop (COMPLETED) 0734 (Given - Provider: Artie Nieves) 1 drop, Left Eye, ONCE, 1 dose, 01/21 at 0730, 1 drop to the operative eye once, start on day of surgery, Day of Surgery (Day of Procedure), Routine Continuous Medication Order 02/13/2015 02/14/2015 02/15/2015 lactated ringers infusion 1,000 mL (CANCELED) 0736 (New Bag - Provider: Meche Banuelos RN) 1,000 mL, at 100 mL/hr, Intravenous, CON TINUOUS, Starting Sat02/15/15 at 0730, Until 02/15/15 at 0856, Day of Surgery (Day of Procedure) documented in this encounter Care Teams Eye Surgeon Relationship Specialty Start Date End Date Gerry Hackett MD PCP - General 03/14/10 06/18/[address] [place] [address] documented as of this encounter
--- OUTSIDE RECORDS SUMMARY | 2022-02-02 00:32 | XMS_ITS | Encounter Summary ---
:1950 Author Organization [facility] Address [address] [place] [address] Care Team Providers Name Role Phone Gerry Hackett MD Primary Care Provider [phone] Reason for Visit Reason Comments Diabetes Encounter Details Date Type Department Care Team Description 06/21/2014 Office Visit Endocrinology at [facility] Diane Lewis, Type II or [facility] GEOSCIENCES PROFESSOR unspecified type Drive [facility] [place] [place] [address] without mention of [phone] ENDOCRINOLOGY complication, not DEPT. stated as [place], [place] [address] uncontrolled Social History Tobacco Use Types Packs/Day Years Used Date Former Smoker Quit: 04/04/19 99 Smokeless Tobacco: Never Used Alcohol Use Standard Drinks/Week Comments No 0 (1 standard drink = 0.6 oz pure alcoho l) Sex Assigned at Date Recorded Not on file documented as of this encounter Last Filed Vital Signs Vital Sign Reading Time Taken Comments Blood Pressure 113/75 06/21/2014 4:20 PM EST Pulse 90 06/21/2014 4:20 PM EST Temperature - - Respiratory Rate - - Oxygen Saturation - - Inhaled Oxygen Concentration - - Weight 141.9 kg (312 lb 12.8 oz) 06/21/2014 4:20 PM EST Height 165 cm (5' 4.96) 06/21/2014 4:20 PM EST Body Mass Index 52.12 06/21/2014 4:20 PM EST documented in this encounter Patient Instructions Patient InstructionsDiane Serra, GEOSCIENCES PROFESSOR - 06/21/2014 4:59 PM EST Do not increase metformin dose Try to drink only zero sprite Daily physical activity is your best friend!! Cut jamel in half for 50mg dose apidra 4-8 units before evening Occasionally check glucose 2 hrs after a meal to see if it is under 180 documented in this encounter Plan of Treatment Upcoming Encounters Date Type Specialty Care Team Description 04/04/2022 Office Visit Dermatology Celena Salazar MD [facility] [address] [place], [place] [address] (Wo rk) documented as of this encounter Procedures Procedure Name Priority Date/Time Associated Diagnosis Comme nts U ALBUMIN/CRE RATIO Routine 06/21/2014 4:23 Type II or Resul ts for this PM EST unspecified type procedure a re in diabetes mellitus the result s without mention of section. complication, not stated as uncontrolled HEMOGLOBIN A1C Routine 06/21/2014 3:39 Type II or Results fo r this PM EST unspecified type procedure a re in diabetes mellitus the result s without mention of section. complication, not stated as uncontrolled VITAMIN B12 Routine 06/21/2014 3:39 Type II or Results for this PM EST unspecified type procedure a re in diabetes mellitus the result s without mention of section. complication, not stated as uncontrolled COMPREHENSIVE Routine 06/21/2014 3:39 Type II or Results for this METABOLIC PANEL PM EST unspecified type procedur e are in (NON-FASTING) diabetes mellitus the resul ts without mention of section. complication, not stated as uncontrolled documented in this encounter Results (ABNORMAL) Hemoglobin A1c (12/29/2014 11:48 AM EDT) Analysis Performed At Patho logist Time Signature Hemoglobin A1C 7.9 (H) 4.3 - 5.6 CERNER % MILLENNIUM Comment: Reference Range: 4.3 - 5.6% 5.7 [...] 36: Suppl. 1, S67-74 Est Avg Gluc 180 mg/dL [facility] Comment: eAG equivalents for HbA1c percentages: HbA1c(%) ?eAG(mg/dL) 6.0 ?126 6.5 ?140 7.0 ?154 7.5 ?169 8.0 ?183 8.5 ?197 9.0 ?212 9.5 ?226 10.0 ? 240 Limitations: The eAG calculation has not been validated on women, individuals below 18 years old and above 70 years old, and individuals with hemoglobinopathies. Additional resources are available on ADA website: http://Risk I/O/DHMCadacalc Chevy PARTIDA, Jr J, Syed R, et al. ??Tr anslating the A1C assay into estimated average glucose values. ??Diabetes Care 2008:31(8):4169-4517. Specimen Anatomical Collection Method Collection Time Receive d Time (Source) Location / / Volume Laterality Blood specimen 12/29/2014 11:48 5 (specimen) AM EDT 12:04 PM EDT Resulting Agency Comment Spec In Lab Pratik Cee MD CHEMISTRY ORDERABLES Performing Organization Address City/State/[place] [address] [facility] Microalbumin, urine, random (06/21/2014 4:23 PM EST) athologist Signature U Creatinine 224 mg/dL CERNER MILLENNIUM U Albumin Conc, 16.0 mg/L CERNER Random MILLENNIUM Alb/Cr Ratio, 7 mcg/mg Cr CERNER Random MILLENNIUM Comment: Reference Range* Random collection (mcg/mg creatinine) Normal ?<30 Microalbuminuria ?? 30 - 300 Clinical Albuminuria ?? >300 *[place] Diabetes Association. Diabetic Nephropathy. Diabetes Care 1997;(Suppl 1):S24-S27 Exercise within 24 hour, infection, fe lester, CHF, marked hyperglycemia, and marked hypertension may elevate urinary albumin excretion over baseline values. Specimen Anatomical Collection Method Collection Time Receive d Time (Source) Location / / Volume Laterality Urine specimen 06/21/2014 4:23 PM 015 4:28 (specimen) EST PM EST Resulting Agency Comment Spec In Lab Pratik Cee MD URINE ORDERABLES Performing Organization Address City/[facility]/[place] [address] CERNER MILLENNIUM (ABNORMAL) Vitamin B12 (06/21/2014 3:39 PM EST) Analysis Performed At [facility] Time Signature Vitamin B-12 1,596 (H) 207 - 974 CERNER pg/mL MILLENNIUM Specimen Anatomical Collection Method Collection Time Receive d Time (Source) Location / / Volume Laterality Blood specimen 06/21/2014 3:39 PM 015 3:43 (specimen) EST PM EST Resulting Agency Comment Spec In Lab Pratik Cee MD CHEMISTRY ORDERABLES Performing Organization Address City/[facility]/ZIP [facility] [place] [address] CERNER MILLENNIUM (ABNORMAL) Hemoglobin A1c (06/21/2014 3:39 PM EST) [facility] Time Signature Hemoglobin A1C 8.5 (H) 4.3 - 5.6 CERNER % MILLENNIUM Comment: Reference Range: 4.3 - 5.6% 5.7 [...] 36: Suppl. 1, S67-74 Est Avg Gluc 197 mg/dL [facility] Comment: eAG equivalents for HbA1c percentages: HbA1c(%) ?eAG(mg/dL) 6.0 ?126 6.5 ?140 7.0 ?154 7.5 ?169 8.0 ?183 8.5 ?197 9.0 ?212 9.5 ?226 10.0 ? 240 Limitations: The eAG calculation has not been validated on women, individuals below 18 years old and above 70 years old, and individuals with hemoglobinopathies. Additional resources are available on [place] website: http://Risk I/O/[facility] OKLAHOMA CITYadacalc Chevy PARTIDA, Jr J, Syed R, et al. ??Tr anslating the A1C assay into estimated average glucose values. ??Diabetes Care 2008:31(8):1539-1585. Specimen Anatomical Collection Method Collection Time Receive d Time (Source) Location / / Volume Laterality Blood specimen 06/21/2014 3:39 PM 015 3:43 (specimen) EST PM EST Resulting Agency Comment Spec In Lab Pratik Cee MD CHEMISTRY ORDERABLES Performing Organization Address City/State/[place] [address] [facility] (ABNORMAL) Comprehensive metabolic panel (non-fasting) (06/21/2014 3:39 PM EST) athologist Signature Glucose Lvl 144 60 - 199 CERNER mg/dL MILLENNIUM Comment: Diabetes: >=200 mg/dL plus symp toms BUN 21 (H) 8 - 18 mg/dL CERNER MILLENNIUM Creatinine 1.14 0.70 - 1.20 mg/dL CERNER MILL ENNIUM Comment: Please note that the pediatric reference intervals supplied above were not validated at [facility]. Results from pediatri c patients should be interpreted in conjunction to the patient's age, height and muscle mass. Sodium 140 135 - 145 mmol/L CERNER BELLA NIUM Potassium 4.3 3.5 - 5.0 mmol/L CERNER BELLA NIUM Comment: Please note: ??Patients with WBC >100,00 0 may have falsely elevated Potassium levels. ??For accurate Potassium quantif ication in these patients send serum separator tube (gold top) for subsequent determinations. ??Contact the Clinical Chemistry Laboratory if there are any qu estions. Chloride 100 98 - 107 mmol/L CERNER MILLENN IUM CO2 27 22 - 31 mmol/L CERNER MILLENNI UM Anion Gap 13 5 - 15 mmol/L CERNER MILLENNIU M Calcium 9.4 8.5 - 10.5 mg/dL CERNER BELLA NIUM Total Protein 7.2 6.4 - 8.3 gm/dL CERNER MIL LENNIUM Albumin 3.9 3.2 - 5.2 gm/dL CERNER MILLENN IUM AST 10 0 - 30 unit/L CERNER MILLENNIU M ALT 14 0 - 30 unit/L CERNER MILLENNIU M Alk Phos 113 (H) 40 - 104 unit/L CERNER MILLENN IUM Total Bilirubin 0.2 0.2 - 1.3 mg/dL CERNER M ILLENNIUM Comment: rechecked by laurie Matthew Direct <0.1 0.0 - 0.3 mg/dL CERNER MILL ENNIUM Estimated GFR 48 (L) >=60 CERNER MILLENNIU M Comment: This [...] the following links into your internet browser. http://Risk I/O/DHnkdep http://Risk I/O/DHMCnkf Specimen Anatomical Collection Method Collection Time Receive d Time (Source) Location / / Volume Laterality Blood specimen 06/21/2014 3:39 PM 015 3:43 (specimen) EST PM EST Resulting Agency Comment Spec In Lab Pratik Cee MD CHEMISTRY ORDERABLES Performing Organization Address City/State/[place] [address] [facility] documented in this encounter Visit Diagnoses Diagnosis Type II or unspecified type diabetes татьяна litus without mention of complication, not stated as uncontrolled documented in this encounter Care Teams Assistant Professor Of Biology Relationship Specialty Start Date End Date Gerry Hackett MD PCP - General 03/14/10 06/18/[address] [place] [address] documented as of this encounter
--- OUTSIDE RECORDS SUMMARY | 2022-02-02 00:32 | XMS_ITS | Encounter Summary ---
:1950 Author Organization [facility] Address [address] [place] [address] Care Team Providers Name Role Phone Gerry Hackett MD Primary Care Provider [phone] Reason for Visit Reason Comments Diabetes Encounter Details Date Type Department Care Team Description 08/10/2013 Office Visit Endocrinology at [facility] C Diane Serra, Type II or [facility] BIOMETRIC TECHNICIAN unspecified type Drive [facility] [place] [address] without mention of [phone] ENDOCRINOLOGY complication, not DEPT. stated as [place], [place] [address] uncontrolled (Primary [phone] Dx) (Work) Social History Tobacco Use Types Packs/Day Years Used Date Former Smoker Quit: 04/04/19 99 Smokeless Tobacco: Never Used Alcohol Use Standard Drinks/Week Comments No 0 (1 standard drink = 0.6 oz pure alcoho l) Sex Assigned at Date Recorded Not on file documented as of this encounter Last Filed Vital Signs Vital Sign Reading Time Taken Comments Blood Pressure 111/67 08/10/2013 3:24 PM EDT Pulse 86 08/10/2013 3:24 PM EDT Temperature - - Respiratory Rate - - Oxygen Saturation - - Inhaled Oxygen Concentration - - Weight 143 kg (315 lb 3.2 oz) 08/10/2013 3:24 PM EDT Height - - Body Mass Index 50.87 08/26/2012 2:47 PM EDT documented in this encounter Progress Notes Diane Serra, BIOMETRIC TECHNICIAN - 08/10/2013 5:00 PM EDT DATE OF VISIT: 08/10/2013. REASON FOR VISIT: Followup type 2 DM, now in poor control. Also, followup hypertension in good control, hyperlipidemia, class III obesity. BRIEF HISTORY: Presents and brings written blood glucose log. SBGM: One time a day DX CODE: 250.02. PREVENTION STRATEGIES: She does take a statin and an LITZY inhibitor, does have an annual dilated eye exam. Will check when her last dentist appointment was. DIABETES REGIMEN: Lantus SoloSTAR pen 34 units in p.m., glimepiride 4 mg in a.m., Januvia 100 mg daily, Apidra rarely. 24-HOUR MEAL PLAN: Breakfast is a muffin or two packages of Cream of Wheat, coffee with one teaspoon of sugar. Morning snack is devendra james or sugar-free ice tea. Evening meal was a lobster roll. Snacks, tries not to snack on chips, but sometimes she does and sometimes snacks on nuts. PHYSICAL ACTIVITY: Not much, related to shortness of breath. Ambulates with assistance of wheeled walker. REVIEW OF SYSTEMS: Depression and Mood: Overall, is doing okay. Eyes: Has cataracts, but they are not ready to be removed yet. Shortness of breath. History of left lung removal related to cancer, has shortness of breath with increased activity. No recent GI symptoms. Takes Prilosec for GERD. Sleep Pattern: Usually okay. Has sleep apnea. Extremities are okay. PHYSICAL EXAMINATION: Appearance: She is obese with a very large central girth. Weight 315 pounds, same as it was a year ago. Blood pressure 111/67. Eyes: No retinopathy by green light exam. Neck: No thyromegaly or lymphadenopathy. Right lung sounds, no wheezing or abnormal sounds heard. Heart: Regular rate and rhythm. No murmurs. Feet: Skin is normal. Pulses are normal. Neuro: Normal sensation to 10 g of pressure. LABORATORY DATA: Hemoglobin A1c 9.7%, previous was 7.8%. Glucose level at time of lab draw 266. IMPRESSION AND PLAN: Diabetes mellitus type 2, now in very poor control. Gave the patient 6 units of NovoLog SC in abdomen at 03:50 p.m. Advised to check glucose levels consistently before meals three times a day and take Apidra 6 to 10 units before meals three times a day. Encouraged upper body range of motion exercises and some strength training and advised to do chair stands as much as possible during the day. She states she also plans to try to walk more. This was a 35-minute office visit with 34 minutes spent counseling wein-so-mceb with patient in the management of glucose levels, advising to resume Apidra before meals three times a day. Return to office in October. Will check hemoglobin A1c. Recent Results (from the past 72 hour(s)) COMPREHENSIVE METABOLIC PANEL (NON-FASTING) Component Value Range Glucose Lvl 266 (*) 60 - 199 mg/dL BUN 22 (*) 8 - 18 mg/dL Creatinine 1.20 0.70 - 1.20 mg/dL Sodium 135 135 - 145 mmol/L Potassium 4.6 3.5 - 5.0 mmol/L Chloride 99 98 - 107 mmol/L CO2 26 22 - 31 mmol/L Anion Gap 10 5 - 15 mmol/L Anion Gap 10 5 - 15 mmol/L Calcium 9.7 8.5 - 10.5 mg/dL Total Protein 6.8 6.4 - 8.3 gm/dL Albumin 3.8 3.2 - 5.2 gm/dL AST 10 0 - 30 unit/L ALT 12 0 - 30 unit/L Alk Phos 101 40 - 104 unit/L Total Bilirubin 0.3 0.2 - 1.3 mg/dL Bili, Direct 0.1 0.0 - 0.3 mg/dL Estimated GFR 45 (*) >=60 HEMOGLOBIN A1C Component Value Range Hemoglobin A1C 9.7 (*) <=5.6 % Est Avg Gluc 232 HDL/CHOL PROFILE Component Value Range Chol, Total 153 <=199 mg/dL HDL 49 >=40 mg/dL Chol/HDL Ratio 3.1 LDL CHOLESTEROL, DIRECT Component Value Range LDL Chol Direct 84 <=99 mg/dL MICROALBUMIN, URINE, RANDOM Component Value Range U Creatinine 94 U Ran Malb Conc <3.0 U Ran Malb Calc <3 documented in this encounter Plan of Treatment Upcoming Encounters Date Type Specialty Care Team Description 04/04/2022 Office Visit Dermatology Celena Salazar MD [facility] [address] [place], [place] [address] (Wo rk) documented as of this encounter Procedures Procedure Name Priority Date/Time Associated Diagnosis Comme nts U ALBUMIN/CRE RATIO Routine 08/10/2013 2:35 Type II or Resul ts for this PM EDT unspecified type procedure a re in diabetes mellitus the result s without mention of section. complication, not stated as uncontrolled LDL CHOLESTEROL, Routine 08/10/2013 2:26 Type II or Results for this DIRECT PM EDT unspecified type procedure a re in diabetes mellitus the result s without mention of section. complication, not stated as uncontrolled HDL/CHOL PROFILE Routine 08/10/2013 2:26 Type II or Results for this PM EDT unspecified type procedure a re in diabetes mellitus the result s without mention of section. complication, not stated as uncontrolled HEMOGLOBIN A1C Routine 08/10/2013 2:26 Type II or Results fo r this PM EDT unspecified type procedure a re in diabetes mellitus the result s without mention of section. complication, not stated as uncontrolled COMPREHENSIVE Routine 08/10/2013 2:26 Type II or Results for this METABOLIC PANEL PM EDT unspecified type procedur e are in (NON-FASTING) diabetes mellitus the resul ts without mention of section. complication, not stated as uncontrolled documented in this encounter Results (ABNORMAL) Hemoglobin A1c (11/11/2013 1:38 PM EDT) Analysis Performed At [facility] Time Signature Hemoglobin A1C 8.2 (H) <=5.6 % [facility] Comment: Reference Range: 4.3 ? 5.6% 5.7 [...] 36: Suppl. 1, S67-74 Est Avg Gluc 189 mg/dL [facility] Comment: eAG equivalents for HbA1c percentages: HbA1c(%) ?eAG(mg/dL) 6.0 ?126 6.5 ?140 7.0 ?154 7.5 ?169 8.0 ?183 8.5 ?197 9.0 ?212 9.5 ?226 10.0 ? 240 Limitations: The eAG calculation has not been validated on women, individuals below 18 years old and above 70 years old, and individuals with hemoglobinopathies. Additional resources are available on [place] website: [email or web address] Chevy PARTIDA, Jr J, Syed R, et al. ??Tr anslating the A1C assay into estimated average glucose values. ??Diabetes Care 2008:31(8):7182-2629. Specimen Anatomical Collection Method Collection Time Receive d Time (Source) Location / / Volume Laterality Blood specimen 11/11/2013 1:38 PM 014 2:08 (specimen) EDT PM EDT Resulting Agency Comment Spec In Lab Pratik Cee MD CHEMISTRY ORDERABLES Performing Organization Address City/State/[place] [address] CERNER MILLENNIUM Microalbumin, urine, random (08/10/2013 2:35 PM EDT) P athologist Signature U Creatinine 94 mg/dL CERNER MILLENNIUM U Albumin Conc, <3.0 mg/L CERNER Random MILLENNIUM Alb/Cr Ratio, <3 mcg/mg Cr CERNER Random [facility]ILLENNIUM Comment: Reference Range* Random collection (mcg/mg creatinine) Normal ?<30 Microalbuminuria ?? 30 - 300 Clinical Albuminuria ?? >300 *[place] Diabetes Association. Diabetic Nephropathy. Diabetes Care 1997;(Suppl 1):S24-S27 Exercise within 24 hour, infection, fe lester, CHF, marked hyperglycemia, and marked hypertension may elevate urinary albumin excretion over baseline values. Specimen Anatomical Collection Method Collection Time Receive d Time (Source) Location / / Volume Laterality Urine specimen 08/10/2013 2:35 PM 014 2:46 (specimen) EDT PM EDT Resulting Agency Comment Spec In Lab Pratik Cee MD URINE ORDERABLES Performing Organization Address City/[facility]/ZIP Code Phon e Number [address] [facility] LDL Cholesterol, Direct (08/10/2013 2:26 PM EDT) P athologist Signature LDL Chol 84 <=99 mg/dL [facility] Direct [facility] Comment: The National Cholesterol Education Progr am (NCEP) has set the following guidelines for LDL Cholesterol: Reference range: ?? Optimal: ?<100 mg/dL ?? Near Optimal/Above Optimal: ?? 100-1 29 mg/dL ?? Borderline high: ?130-159 mg/dL ?? High: ? 160-189 mg/dL ?? Very high: ?>wm=927 mg/dL ARIADNE 2001: 285(19):4242-7738 Specimen Anatomical Collection Method Collection Time Receive d Time (Source) Location / / Volume Laterality Blood specimen 08/10/2013 2:26 PM 014 2:44 (specimen) EDT PM EDT Resulting Agency Comment Spec In Lab Pratik Cee MD CHEMISTRY ORDERABLES Performing Organization Address City/[facility]/ZIP Code Phon e Number [address] [facility] [employer] HDL/Cholesterol Profile (08/10/2013 2:26 PM EDT) P athologist Signature Chol, Total 153 <=199 mg/dL [facility] Comment: Recommendations of the NCEP Adult Treatm ent Panel for the following risk cutoff thresholds for the [place] populatio n: Desirable: <200 mg/dL Borderline High: 200-239 mg/dL High: > or = 240 mg/dL HDL 49 >=40 mg/dL [facility] Comment: Reference range: ??Low HDL: ?? < 40 mg/dL ??Normal: ?40-60 mg/dL ??Desirable: > 60 mg/dL ARIADNE 2001; 285(19):1964-7820 Chol/HDL Ratio 3.1 ratio [facility] Comment: A Cholesterol to HDL ratio below 4:1 is desirable. ??Studies suggest that increased CAD risk occurs at ratios abov e 5 for females and above 6 for men. ? [place] Heart Association ??(htt p://www.americanheart.org) ? Kathryn Int Med, 1994; 121:641 ? AM J Med, 1998; 105(1A):48S Specimen Anatomical Collection Method Collection Time Receive d Time (Source) Location / / Volume Laterality Blood specimen 08/10/2013 2:26 PM 014 2:44 (specimen) EDT PM EDT Resulting Agency Comment Spec In Lab Pratik Cee MD CHEMISTRY ORDERABLES Performing Organization Address City/State/ZIP Code Phon e Number [place] [id number] [facility] (ABNORMAL) Hemoglobin A1c (08/10/2013 2:26 PM EDT) Analysis Performed At Patho logist Time Signature Hemoglobin A1C 9.7 (H) <=5.6 % [facility] Comment: As of 2013 the methodology for Hem oglobin A1c testing has changed. This change is accompanied by a new interpret tamar statement and flags. Please review the new interpretive statement and conta ct Dr. Desai or Dr. Garcia with questions. Reference Range: 4.3 ? 5.6% 5.7 ? [...] Mellitus, Diabetes Care 2013; 36: Suppl. 1, S67-59 Est Avg Gluc 232 mg/dL [facility] Comment: eAG equivalents for HbA1c percentages: HbA1c(%) ?eAG(mg/dL) 6.0 ?126 6.5 ?140 7.0 ?154 7.5 ?169 8.0 ?183 8.5 ?197 9.0 ?212 9.5 ?226 10.0 ? 240 Limitations: The eAG calculation has not been validated on women, individuals below 18 years old and above 70 years old, and individuals with hemoglobinopathies. Additional resources are available on [facility] ADA website: ??http://professional.diabetes.org/gluc osecalculator.aspx Chevy PARTIDA, Jr J, Syed R, et al. ??Tr anslating the A1C assay into estimated average glucose values. ??Diabetes Care 2008:31(8):1922-6190. Specimen Anatomical Collection Method Collection Time Receive d Time (Source) Location / / Volume Laterality Blood specimen 08/10/2013 2:26 PM 014 2:44 (specimen) EDT PM EDT Resulting Agency Comment Spec In Lab Pratik Cee MD CHEMISTRY ORDERABLES Performing Organization Address City/State/[place] [address] [facility] (ABNORMAL) Comprehensive metabolic panel (non-fasting) (08/10/2013 2:26 PM EDT) athologist Signature Glucose Lvl 266 (H) 60 - 199 CERNER mg/dL MILLENNIUM Comment: Diabetes: >=200 mg/dL plus symp toms BUN 22 (H) 8 - 18 mg/dL CERNER MILLENNIUM Creatinine 1.20 0.70 - 1.20 mg/dL CERNER MILL ENNIUM Comment: Please note that the pediatric reference intervals supplied above were not validated at [facility]. Results from pediatri c patients should be interpreted in conjunction to the patient's age, height and muscle mass. Sodium 135 135 - 145 mmol/L CERNER BELLA NIUM Potassium 4.6 3.5 - 5.0 mmol/L CERN[facility] BE[facility]A [facility] Comment: Please note: ??Patients with WBC >100,00 0 may have falsely elevated Potassium levels. ??For accurate Potassium quantif ication in these patients send serum separator tube (gold top) for subsequent determinations. ??Contact the Clinical Chemistry Laboratory if there are any qu estions. Chloride 99 98 - 107 mmol/L CERNER MILLENN IUM CO2 26 22 - 31 mmol/L CERNER MILLENNI UM Anion Gap 10 5 - 15 mmol/L CERNER MILLENNIU M Anion Gap 10 5 - 15 mmol/L CERNER MILLENNIU M Calcium 9.7 8.5 - 10.5 mg/dL CERNER BELLA NIUM Total Protein 6.8 6.4 - 8.3 gm/dL CERNER MIL LENNIUM Albumin 3.8 3.2 - 5.2 gm/dL CERNER MILLENN IUM AST 10 0 - 30 unit/L CERNER MILLENNIU M ALT 12 0 - 30 unit/L CERNER MILLENNIU M Alk Phos 101 40 - 104 unit/L CERNER MILLENN IUM Total Bilirubin 0.3 0.2 - 1.3 mg/dL CERNER M ILLENNIUM Bili, Direct 0.1 0.0 - 0.3 mg/dL CERNER MILL ENNIUM Estimated GFR 45 (L) >=60 CERNER MILLENNIU M Comment: This [...] the following links into your internet browser. http://www.nkdep.nih.gov/lab-evaluation. shtml http://www.kidney.org/professionals/ Specimen Anatomical Collection Method Collection Time Receive d Time (Source) Location / / Volume Laterality Blood specimen 08/10/2013 2:26 PM 014 2:44 (specimen) EDT PM EDT Resulting Agency Comment Spec In Lab Pratik Cee MD CHEMISTRY ORDERABLES Performing Organization Address City/State/ZIP Code Phon e Number [address] [facility] documented in this encounter Visit Diagnoses Diagnosis Type II or unspecified type diabetes татьяна litus without mention of complication, not stated as uncontrolled - Primary documented in this encounter Care Teams Ornamenter Hand Relationship Specialty Start Date End Date Gerry Hackett MD PCP - General 03/14/10 06/18/[address] [place] [address] documented as of this encounter
--- OUTSIDE RECORDS SUMMARY | 2022-02-02 00:32 | XMS_ITS | Encounter Summary ---
:1950 [place] [address] Care Team Providers Name Role Phone Gerry Hackett MD Primary Care Provider [phone] Encounter Details Date Type Department Care Team Description 03/15/2015 Anesthesia Event Outpatient Surgery Lev Griffith [facility] [place] [address] [place] Princess Vickers MD [facility] [place] [address] [facility] [place] [address] Anesthesia Record Procedure Summary Procedure Name Responsible Anesthesia Start Anesthesia Stop Time Anesthesiologist Time CATARACT Jarred Griffith DO 03/15/15 0900 03/15/15 092 8 EXTRACTION, EXTRACAPSULAR, W/ LENS INSERTION (WRVU 8.52) (Right Eye) Events Date Time Event Comment 03/15/2015 0822 0900 Start 0902 AN Verify 0902 An Start Data 0902 Anesthesia Ready 0923 an stop data 0928 Recovery or ICU Handoff Patient care was transferred to the destination unit staff after review of the patient's medica l history, current anesthetic/surgi braulio status and plan, according to the Provider Handoff Checklist. 0928 Stop Name Total Midazolam 2 mg fentaNYL 50 mcg lactated ringers infusion 1,000 mL 200 mL Agents Name O2 O2 Auxiliary Flowmeter 1 Blood No blood administrations on file. Lines, Drains, and Airways Type Details Placement Removal Incision 02/15/15; eye; 12/18/21 (LDA 02/15/15 0000 by Sn ow, 12/18/21 1715 by cleanup utility RA#[id number]); BINDU Oliver Yola L 1715 (LDA cleanup utility RA#[id number]) PIV 03/15/15; 0807; metacarpal 03/15/15 0807 by Perr on, 03/15/15 0932 by vein right (top of hand); BINDU Sanchez Julie G, RN [id number] catheter system; 22 gauge, 1 in length; distraction, intradermal injection, tolerated well, appears comfortable; 03/15/15; 0932 Incision eye; 12/18/21 (LDA cleanup 03/15/15 0916 by 11/21 01/11 1715 by utility RA#[id number]); 1715 (LDA Angelo er, Dierdre L cleanup utility RA#[id number]) documented in this encounter Social History Tobacco Use Types Packs/Day Years Used Date Former Smoker Quit: 04/04/19 99 Smokeless Tobacco: Never Used Alcohol Use Standard Drinks/Week Comments No 0 (1 standard drink = 0.6 oz pure alcoho l) Sex Assigned at Date Recorded Not on file documented as of this encounter OR Notes Anesthesia Postprocedure Evaluation - Jarred Griffith DO - 03/16/2015 1:13 PM EST [facility] of Anesthesiology Post-procedure Note Patient: Pennie Rodriguez Procedure Summary Date Anesthesia Start Anesthesia Stop Room / Location 03/15/15 0900 0928 [facility] OR [address] [place] [address] [facility] Procedure Diagnosis Surgeon Responsible Provider CATARACT EXTRACTION, EXTRACAPSULAR, W/ LENS INSERTION (Right Eye) Age-related nuclear cataract of right eye Vincent Lawler MD Walker, Tacee E, DO (Cataract) Last (1hr) Vitals: BP Temp Pulse Resp SpO2 Patient Location: PACU/SD Level of Consciousness: Awake and Alert Pain Management: Satisfactory Analgesia PONV: None Cardiovascular Status: At Baseline and Hemodynamically Stable Respiratory Status: At Baseline and Room Air Postoperative Fluid Status: Intravascular EUvolemia Possible Anesthetic Complications: NONE apparent at time of evaluation Final Primary Anesthesia Type: MAC (The anesthetic type performed was the same as planned.) Comments: Jarred Griffith DO Anesthesia Preprocedure Evaluation - Jarred Griffith DO - 03/15/2015 8:18 AM EST Pre-Anesthesia Evaluation for: Pennie Rodriguez a 64 y.o. female. Procedure(s): CATARACT EXTRACTION, EXTRACAPSULAR, W/ LENS INSERTION Patient Active Problem List Diagnosis ??? Cataracts, bilateral ??? IDDM (insulin dependent diabetes mellitus) ??? Myopia ??? Presbyopia OU ??? Obesity ??? Hyperlipidemia ??? Asthma ??? Diabetes mellitus type II ??? 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 Past Medical History Diagnosis Date ??? Diabetes mellitus ??? Arthritis ??? COPD (chronic obstructive pulmonary disease) ??? Asthma ??? Hypertension ??? Obesity ??? Lung cancer Tx surgically, XRT and chemotherapy ??? Hyperlipidemia ??? GERD (gastroesophageal reflux disease) ??? Anemia After chemo but this has resolved per pt. ??? Hoarseness Evaluated by Dr Leslie. Attributed to inhalers. ??? Stasis dermatitis Past Surgical History Procedure Laterality Date ??? Created by interface benign breast biopsy Procedure Date: Unknown ??? Created by interface BRONCHOSCOPY; DX, W\WO CELL WASHING Procedure Date: 04/20/2004 ??? Created by interface COLONOSCOPY (ENDO) Procedure Date: 05/08/2006 ??? Created by interface THORACOTOMY-PNEUMONECTOMY,TOTAL / LEFT Procedure Date: 04/20/2004 ??? Created by interface Tonsillectomy Procedure Date: Unknown ??? Lung removal, total Left lung removed to treat the cancer ??? Cataract removal 02/15/2015 OS - Dr Lawler ??? Pro remv cataract extracap,insert lens Left 02/15/2015 CATARACT EXTRACTION, EXTRACAPSULAR, W/ LENS INSERTION performed by Vincent Lawler MD at [facility] History Substance Use Topics ??? Smoking status: Former Smoker Quit date: 04/04/1999 ??? Smokeless tobacco: Never Used ??? Alcohol Use: No History Drug Use No Allergies Allergen Reactions ??? Morphine Sulfate Nausea And Vomiting Medications: MAR and/or home medications have been reviewed. Physical Exam: Filed Vitals: 03/15/15 0759 BP: 93/64 Pulse: 90 Temp: 37.1 ??C (98.8 ??F) Resp: 16 Body mass index is 48.44 kg/(m^2). Height: 167.6 cm (5' 6) Weight - Scale: (!) 136.079 kg (300 lb) Airway Assessment: Mallampati: II TM distance: >3 FB Neck ROM: full Cardiovascular Assessment: Rhythm: regular cardiovascular exam normal Pulmonary Assessment: (-) wheezes Dental Assessment: - normal exam Misc Assessment: IV access: Peripheral line Other exam findings: Wheezing noted- but then cleared with cough and albuterol treatment. RA O2 Sat 97% She has her transport O2 with her Anesthesia Plan: ASA 3 MAC, with a(n) intravenous induction 64 y/o morbidly obese female for R eye cataract ext Did well with recent L cataract Has had a cold recently, cough and sinus drainage. She denies feeling that it is in her chest. She appears well today. RA sat 97%, has her travel O2 with her and her albuterol. PT denies CP/SOB/PND/Orthopnea (as long as she wears O2)/Active GERss Plan MAC with RM- GA backup. Plans and risks reviewed. Questions answered. Region - Other Informed Consent: Anesthetic plan and risks discussed with patient. Plan discussed with ANODE ADJUSTER. PAT Staff Note documented in this encounter Plan of Treatment Upcoming Encounters Date Type Specialty Care Team Description 04/04/2022 Office Visit Dermatology Celena Salazar MD [facility] [address], [place] [address] (Wo rk) documented as of this encounter Visit Diagnoses Not on filedocumented in this encounter Administered Medications Inactive Administered Medications - up to 3 most recent administrations Medication Order MAR Action Action Date Dose Rate Site fentaNYL 50 mcg/mL multi-dose Given 03/15/2015 9:12 AM EST 25 mc g injection PRN, Starting on Sat03/15/15 at 0903, Until Sat03/15/15 at 0931, Pain, Anesthesia Intra-op, Routine Given 03/15/2015 9:03 AM EST 25 mcg lactated ringers infusion 1,000 mL New Bag 03/15/2015 8:58 AM EST 1,000 mL, at 100 mL/hr, Intravenous, CONTINUOUS, Starting on Sat03/15/15 at 0800, Until Sat03/15/15 at 1147, Day of Surgery (Day of Procedure) midazolam (PF) (VERSED) 1 mg/mL multi-dose Given 03/15/2015 9:08 AM EST 1 mg injection PRN, Starting on Sat03/15/15 at 0905, Until Sat03/15/15 at 0931, Sleep, Anesthesia Intra-op, Routine Given 03/15/2015 9:05 AM EST 1 mg documented in this encounter Care Teams Boilermaker Mechanic Relationship Specialty Start Date End Date Gerry Hackett MD PCP - General 03/14/10 06/18/17 [address] [place] [address] documented as of this encounter
--- OUTSIDE RECORDS SUMMARY | 2022-02-02 00:32 | XMS_ITS | Encounter Summary ---
:1950 Author Organization [facility] [place] [address] Care Team Providers Name Role Phone Gerry Hackett MD Primary Care Provider [phone] Reason for Visit Reason Onset Date Comments Medication Refill 06/22/2014 Encounter Details Date Type Department Care Team Description 06/22/2014 Refill Endocrinology at [facility] Diane Lewis APRN [facility] [address] ENDOCRINOLOGY DEPT. [phone] [place], [place] [address] (Wo rk) Social History Tobacco [...] [facility] [address] [place], [place] [address] (Wo rk) documented as of this encounter Visit Diagnoses Not on filedocumented in this encounter Care Teams Bellmaker Relationship Specialty Start Date End Date Gerry Hackett MD PCP - General 03/14/10 06/18/17 [address] [place], [place] [id number] documented as of this encounter
--- OUTSIDE RECORDS SUMMARY | 2022-02-02 00:32 | XMS_ITS | Encounter Summary ---
:1950 Author Organization [facility] Address [address] [place] [address] Care Team Providers Name Role Phone Gerry Hackett MD Primary Care Provider [phone] Encounter Details Date Type Department Care Team Description 05/26/2014 Orders Only Hematology and Dragnev, Delbert Malign ant neoplasm of Oncology at [facility] MD Darrell bronchus and lung, [facility] uns pecified site [address] [place], [place] MEDICAL ONCOLOGY [address] [place] [address] [phone] (Wo rk) Social History Tobacco Use Types [...] 04/04/2022 Office Visit Dermatology Celena Salazar MD [facility] ER [address] THERESE [address] [place], [place] [address] (Wo rk) documented as of this encounter Results XR chest routine PA & lateral (09/01/2014 12:40 PM EDT) Anatomical Region Laterality Modality Chest N/A Radiographic Imaging Specimen (Source) Anatomical Collection Method Collection Time Re ceived Time Location / / Volume Laterality 09/01/2014 12:40 PM EDT Impressions 09/01/2014 2:20 PM EDT IMPRESSION: 1. ??No interval change or significant f indings. Patient is status post left pneumonectomy. 2. ??The right lung is clear. This report was reviewed by Mark banegas at 09/01/2014 2:15 PM Film and interpretation reviewed by the attending Narrative 09/01/2014 2:20 PM EDT EXAMINATION: CHEST ROUTINE PA+LAT CLINICAL HISTORY: LUNG CA TECHNIQUE: PA and lateral views of the c hest. COMPARISON: 08/26/2013. FINDINGS: Patient is status post left pneumonectom y with post surgical clips and unchanged opacification of left hemithorax. The ri ght lung remains hyperexpanded and clear. No pneumothorax or right pleural effusion. The cardiac silhouette is obscured. Degenerative changes are visua lized in the thoracic spine. Procedure Note Mark Copeland MD - 09/01/2014Formatt ing of this note might be different from the original. EXAMINATION: CHEST ROUTINE PA+LAT CLINICAL HISTORY: LUNG CA TECHNIQUE: PA and lateral views of the c hest. COMPARISON: 08/26/2013. FINDINGS: Patient is status post left pneumonectom y with post surgical clips and unchanged opacification of left hemithorax. The ri ght lung remains hyperexpanded and clear. No pneumothorax or right pleural effusion. The cardiac silhouette is obscured. Degenerative changes are visua lized in the thoracic spine. IMPRESSION IMPRESSION: 1. No interval change or significant fin dings. Patient is status post left pneumonectomy. 2. The right lung is clear. This report was reviewed by Mark banegas at 09/01/2014 2:15 PM Film and interpretation reviewed by the attending Delbert Greenberg MD IMG DX ORDERABLES Lactate Dehydrogenase (09/01/2014 12:27 PM EDT) P athologist Signature LDH 176 110 - 220 CERNER unit/L MILLENNIUM Specimen Anatomical Collection Method Collection Time Receive d Time (Source) Location / / Volume Laterality Blood specimen 09/01/2014 12:27 5 (specimen) PM EDT 12:41 PM EDT Resulting Agency Comment Spec In Lab Delbert Greenberg MD CHEMISTRY ORDERABLES Performing Organization Address City/State/ZIP Code Phon e Number [place] [phone] CERNER MILLENNIUM (ABNORMAL) Comprehensive metabolic panel (non-fasting) (09/01/2014 12:27 PM EDT) athologist Signature Glucose Lvl 122 60 - 199 CERNER mg/dL MILLENNIUM Comment: Diabetes: >=200 mg/dL plus symp toms BUN 19 (H) 8 - 18 mg/dL CERNER MILLENNIUM Creatinine 1.23 (H) 0.70 - 1.20 mg/dL CERNER MILL ENNIUM Comment: Please note that the pediatric reference intervals supplied above were not validated at [facility]. Results from pediatri c patients should be interpreted in conjunction to the patient's age, height and muscle mass. Sodium 143 135 - 145 mmol/L CERNER BELLA NIUM [...] 31 mmol/L CERNER MILLENNI UM Anion Gap 17 (H) 5 - 15 mmol/L CERNER MILLENNIU M Calcium 9.3 8.5 - 10.5 mg/dL CERNER BELLA NIUM Total Protein 7.7 6.1 - 8.0 gm/dL CERNER MIL LENNIUM Albumin 4.0 3.2 - 5.2 gm/dL CERNER MILLENN IUM AST 10 0 - 30 unit/L CERNER MILLENNIU M ALT 10 0 - 30 unit/L CERNER MILLENNIU M Alk Phos 108 (H) 40 - 104 unit/L CERNER MILLENN IUM Total Bilirubin 0.2 0.2 - 1.3 mg/dL CERNER M ILLENNIUM Bili, Direct 0.1 0.0 - 0.3 mg/dL CERNER MILL ENNIUM Estimated GFR 44 (L) >=60 CERNER MILLENNIU M Comment: This [...] the following links into your internet browser. [email or web address] Specimen Anatomical Collection Method Collection Time Receive d Time (Source) Location / / Volume Laterality Blood specimen 09/01/2014 12: 5 (specimen) PM EDT 12:41 PM EDT Resulting Agency Comment Spec In Lab Delbert Greenberg MD CHEMISTRY ORDERABLES Performing Organization Address City/State/[place] [address] [facility] documented in this encounter Visit Diagnoses Diagnosis Malignant neoplasm of bronchus and lung, unspecified site Malignant neoplasm of bronchus and lung, unspecified site documented in this encounter Care Teams Supervisor [employer] Room Relationship Specialty Start Date End Date Gerry Hackett MD PCP - General 03/14/10 06/18/17 [address] [place] [address] documented as of this encounter
--- OUTSIDE RECORDS SUMMARY | 2022-02-02 00:32 | XMS_ITS | Encounter Summary ---
:1950 Author Organization [facility] [employer] [facility] [place] [address] Care Team Providers Name Role Phone Gerry Hackett MD Primary Care Provider [phone] Reason for Referral Consultation (Routine) - Closed Specialty Diagnoses / Procedures Referred By Contact Refer red To Contact Pulmonology Diagnoses Malignant neoplasm of bronchus and lung, unspecified site Janeth Christian APRN Manning, Harold L, MD [facility] HEMATOLOGY/ONCOLOGY [place]MONARY [place] [address] [place] [address] Fax: Referral ID Status Reason Start Date Expiration Date Visits V isits Requested Authorized [id number] Closed Consult, 09/02/2014 09/02/2015 3 3 Test & Treat Reason for Visit Reason Comments Follow-up Encounter Details Date Type Department Care Team Description 09/01/2014 Follow-Up Hematology and Delbert Greenberg ant neoplasm of Oncology at [facility] MD Darrell bronchus and lung, [facility] [address] unspecified site [facility] MEDICAL ONCOLOGY [place] [id number] [phone] Social History Tobacco Use Types Packs/Day Years Used Date Former Smoker Quit: 04/04/19 99 Smokeless Tobacco: Never Used Alcohol Use Standard Drinks/Week Comments No 0 (1 standard drink = 0.6 oz pure alcoho l) Sex Assigned at Date Recorded Not on file documented as of this encounter Last Filed Vital Signs Vital Sign Reading Time Taken Comments Blood Pressure 149/76 09/01/2014 1:46 PM EDT Pulse 92 09/01/2014 1:46 PM EDT Temperature 36.9 ??C (98.4 ??F) 09/01/2014 1:46 PM EDT Respiratory Rate 20 09/01/2014 1:46 PM EDT Oxygen Saturation 98% 09/01/2014 1:46 PM EDT Inhaled Oxygen Concentration - - Weight 139 kg (306 lb 7 oz) 09/01/2014 1:46 PM EDT Height 165.3 cm (5' 5.08) 09/01/2014 1:46 PM EDT Body Mass Index 50.87 09/01/2014 1:46 PM EDT documented in this encounter Progress Notes Janeth Christian, DARCI - 09/01/2014 1:29 PM EDT Subjective: Patient ID: Pennie Rodriguez is a 63 y.o. female with resected (left pneumonectomy) stage IIIA ([id number]) non-small cell lung cancer in March 2004. She received adjuvant chemotherapy followed by post-operative RT. Returning for follow-up. HPI In the interim, this patient is doing pretty well, energy level is good. She reports no new lung cancer-related symptoms. Breathing stable, although feels she has increasing IZQUIERDO. Denies cough and hemoptysis. She has oxygen at home but rarely uses. She does not bring oxygen with her to appointments - she feels it is too inconvenient to travel with. Denies fever, chills. Appetite is good - weight stable. She has no swallowing difficulties. She states in the past year she is struggling with her diabetes and she needs to have cataract surgery. Review of Systems Constitutional: Negative for activity change, appetite change and fatigue. Over weight Eyes: Negative. Respiratory: Positive for shortness of breath. Negative for wheezing. Stable s/p L pneumoectomy Cardiovascular: Negative. Gastrointestinal: Negative. Genitourinary: Negative. Musculoskeletal: Negative. Skin: Negative. Negative for rash. Neurological: Negative. Hematological: Negative. MEDICATIONS AND ALLERGIES: Please see this patient's medications and allergies from today, 09/02/2014. I personally reviewed this patient's medications and allergies. Current Outpatient Prescriptions on File Prior to Visit Medication Sig Dispense Refill ??? insulin glulisine (APIDRA SOLOSTAR) 100 unit/mL Insulin Pen Inject 4-10 Units subcutaneously 2 times daily (before meals). 15 mL 3 ??? metFORMIN (GLUCOPHAGE-XR) 500 mg Tablet Sustained Release 24 hr Take 2 tablets by mouth 2 times daily (with meals). 360 tablet 3 ??? Blood Sugar Diagnostic test strip 1 each by Other route 3 times daily (before meals). Dx code 250.02 Uses insulin 300 each 3 ??? PROAIR HFA 90 mcg/actuation inhaler Inhale 2 puffs into the lungs as needed. ??? OXYGEN-AIR DELIVERY SYSTEMS (WALKABOUT 2 OXYGEN SYSTEM MISC) by [facility].(Non- Drug; Combo Route) route. ??? Calcium Carbonate-Vitamin D3 (CALCIUM 500 + D) 500 mg(1,250mg) -400 unit Chew Take by mouth 2 times daily. ??? insulin glargine (LANTUS SOLOSTAR) 100 unit/mL (3 mL) pen injection Inject 34 Units subcutaneously nightly. ??? lisinopril (PRINIVIL;ZESTRIL) 40 mg tablet Take 40 mg by mouth daily. ??? atorvastatin (LIPITOR) 40 [...] foam ??? sitaGLIPtin (JANUVIA) 100 mg tablet No current facility-administered medications on file prior to visit. Physical Exam: Vitals 08/26/13 Weight - Scale ! 141.1 kg (311 lb 1.1 oz) Height 165 cm (5' 4.96) BSA (Calculated - sq m) 2.54 sq meters BMI (Calculated) 51.9 Temp 36.4 ??C (97.5 ??F) Temp Source Oral Heart Rate 101 Heart Rate Source NIBP Resp 22 BP ! 149/95 mmHg BP Location Left arm Patient Position Sitting SpO2 97 % Pain Level 0 Karnofsky Score 80 Objective: Physical Exam Constitutional: She is oriented to person, place, and time. Vital signs are normal. She is cooperative. Obese Mouth/Throat: Oropharynx is clear and moist. Neck: Normal range of motion. No lymphadenopathy: Cardiovascular: Normal rate, regular rhythm and normal heart sounds. No murmur heard. Pulmonary/Chest: Effort normal. She has decreased breath sounds in the left upper field, the left middle field and the left lower field. She has no wheezes. She has no rhonchi. She has no rales. Abdominal: Soft. Bowel sounds are normal. No hepatosplenomegaly noted. No tenderness. Musculoskeletal: Normal range of motion. +1 edema in BLE Neurological: She is alert and oriented to person, place, and time. She has normal reflexes. No cranial nerve deficit. Skin: Skin is warm and dry. No rash noted. LABORATORY EVALUATION: Recent Results (from the past 24 hour(s)) COMPREHENSIVE METABOLIC PANEL (NON-FASTING) Result Value Ref Range Glucose Lvl 122 60 - 199 mg/dL BUN 19 (*) 8 - 18 mg/dL Creatinine 1.23 (*) 0.70 - 1.20 mg/dL Sodium 143 135 - 145 mmol/L Potassium 4.3 3.5 - 5.0 mmol/L Chloride 100 98 - 107 mmol/L CO2 26 22 - 31 mmol/L Anion Gap 17 (*) 5 - 15 mmol/L Calcium 9.3 8.5 - 10.5 mg/dL Total Protein 7.7 6.1 - 8.0 gm/dL Albumin 4.0 3.2 - 5.2 gm/dL AST 10 0 - 30 unit/L ALT 10 0 - 30 unit/L Alk Phos 108 (*) 40 - 104 unit/L Total Bilirubin 0.2 0.2 - 1.3 mg/dL Bili, Direct 0.1 0.0 - 0.3 mg/dL Estimated GFR 44 (*) >=60 LACTATE DEHYDROGENASE Result Value Ref Range LDH 176 110 - 220 unit/L HEMOGRAM Result Value Ref Range WBC 8.9 4.0 - 10.0 x10(3)/mcL RBC 3.92 (*) 3.93 - 5.22 x10(6)/mcL Hemoglobin 11.4 11.2 - 15.7 gm/dL Hematocrit 36.9 34.0 - 45.0 % MCV 94.1 (*) 79.0 - 94.0 fL MCH 29.1 26.6 - 32.2 pg MCHC 30.9 (*) 32.0 - 36.5 gm/dL Platelets 296 145 - 370 x10(3)/mcL RDWSD 49.1 (*) 35.0 - 46.0 fL RDWCV 14.4 10.9 - 14.4 % MPV 10.8 9.0 - 12.0 fL DIFFERENTIAL, AUTOMATED Result Value Ref Range Neutrophils % 72.2 Neutr Abs (ANC) 6.43 (*) 1.50 - 6.30 x10(3)/mcL Lymphocytes % 18.9 Lymphocytes Abs 1.7 1.0 - 3.6 x10(3)/mcL Monocytes % 6.9 Monocyte Abs 0.6 0.2 - 1.0 x10(3)/mcL Eosinophils % 1.0 Eosinophils Abs 0.1 0.0 - 0.5 x10(3)/mcL Basophils % 0.6 Basophils Abs 0.0 0.0 - 0.2 x10(3)/mcL Immature Gran % 0.40 Shanae Gran Abs 0.04 0.00 - 0.05 x10(3)/mcL RADIOGRAPHIC EVALUATION CXR 09/01/2014: EXAMINATION: CHEST ROUTINE PA+LAT CLINICAL HISTORY: LUNG CA TECHNIQUE: PA and lateral views of the chest. COMPARISON: 08/26/2013. FINDINGS: Patient is status post left pneumonectomy with post surgical clips and unchanged opacification of left hemithorax. The right lung remains hyperexpanded and clear. No pneumothorax or right pleural effusion. The cardiac silhouette is obscured. Degenerative changes are visualized in the thoracic spine. IMPRESSION IMPRESSION: 1. No interval change or significant findings. Patient is status post left pneumonectomy. 2. The right lung is clear. Assessment and Plan: ASSESSMENT: Patient with resected stage IIIA ([id number]) non-small cell lung cancer in 2003 status post adjuvant chemotherapy and sequential postoperative radiation therapy following her left pneumonectomy. She now is over 5 years without evidence of recurrent disease. Reviewed labs and CXR results withpt. She requests to return again in one year for follow-up. Pt states that she feels her IZQUIERDO is increasing and she has not had PFT's since 2004. Pt prefers to establish care here with a pourer bull ladle. Advised pt I will make referral. PLAN: - Patient to return in one year with labs and CXR - Pulm consult for increasing IZQUIERDO - Health maintenance per PCP Janeth Christian APRN documented in this encounter Plan of Treatment Upcoming Encounters Date Type Specialty Care Team Description 04/04/2022 Office Visit Dermatology Celena Salazar MD [facility] ER [address] [place], [place] [address] (Wo rk) Scheduled Referrals Name Type Priority Associated Diagnoses Order S chedule Referral to Outpatient Referral Routine Malignant neoplasm Or dered: Pulmonology of bronchus and 09/02/2014 lung, unspecified site documented as of this encounter Procedures Procedure Name Priority Date/Time Associated Comments Diagnosis HEMOGRAM STAT 09/01/2014 12:27 Malignant neoplasm Resul ts for this PM EDT of bronchus and procedure ar e in lung, unspecified the result s site section. DIFFERENTIAL, STAT 09/01/2014 12:27 Malignant neoplasm Resu lts for this AUTOMATED PM EDT of bronchus and procedure ar e in lung, unspecified the result s site section. CBC (WITH DIFF) STAT 09/01/2014 12:27 Malignant neoplasm PM EDT of bronchus and lung, unspecified site LACTATE DEHYDROGENASE STAT 09/01/2014 12:27 Malignant neopl asm Results for this PM EDT of bronchus and procedure ar e in lung, unspecified the result s site section. COMPREHENSIVE STAT 09/01/2014 12:27 Malignant neoplasm Resu lts for this METABOLIC PANEL PM EDT of bronchus and procedure are in (NON-FASTING) lung, unspecified the resul ts site section. documented in this encounter Results XR chest [...] PM Delbert Greenberg MD IMG DX ORDERABLES Lactate Dehydrogenase (08/31/2015 11:49 AM EDT) athologist Signature LDH 167 110 - 220 [facility] unit/L [facility] LABORATORY Specimen Anatomical Collection Method Collection Time Receive d Time (Source) Location / / Volume Laterality Blood specimen 08/31/2015 11:49 6 (specimen) AM EDT 12:06 PM EDT Resulting Agency Comment Spec In Lab Delbert Greenberg MD CHEMISTRY ORDERABLES Performing Organization Address City/State/[place] [address] (ABNORMAL) Comprehensive metabolic panel (non-fasting) (08/31/2015 11:49 AM EDT) athologist Signature Glucose Lvl 161 65 - 199 [facility] mg/dL [facility] LABORATORY Comment: Diabetes: >=200 mg/dL plus symp toms BUN 26 (H) 8 - 18 mg/dL [facility] Creatinine 1.22 (H) 0.70 - 1.20 mg/dL [facility] Comment: Please note that the pediatric reference intervals supplied above were not validated at [facility]. Results from pediatri c patients should be interpreted in conjunction to the patient's age, height and muscle mass. Sodium 139 135 - 145 mmol/L [facility] Potassium 4.9 3.5 - 5.0 mmol/L [facility] Comment: Please note: ??Patients with WBC >100,00 0 may have falsely elevated Potassium levels. ??For accurate Potassium quantif ication in these patients send serum separator tube (gold top) for subsequent determinations. ??Contact the Clinical Chemistry Laboratory if there are any qu estions. Chloride 100 98 - 107 mmol/L [facility] CO2 27 22 - 31 mmol/L [facility] Anion Gap 12 5 - 15 mmol/L [facility] Calcium 9.4 8.5 - 10.5 mg/dL [facility] Total Protein 7.4 6.1 - 8.0 gm/dL [facility] Albumin 3.8 3.2 - 5.2 gm/dL [facility] AST 6 0 - 30 unit/L [facility] Comment: Results rechecked ALT 7 0 - 30 unit/L [facility] Alk Phos 103 40 - 104 unit/L [facility] Total Bilirubin 0.2 0.2 - 1.3 mg/dL [facility] Comment: Results rechecked Bili, Direct <0.1 0.0 - 0.3 mg/dL [facility] Estimated GFR 44 (L) >=60 [facility] Comment: This estimated GFR (eGFR) value [...] the following links into your internet browser. [email or web address] Specimen Anatomical Collection Method Collection Time Receive d Time (Source) Location / / Volume Laterality Blood specimen 08/31/2015 11:49 6 (specimen) AM EDT 12:06 PM EDT Resulting Agency Comment Spec In Lab Delbert Greenberg MD CHEMISTRY ORDERABLES Performing Organization Address City/State/[place] [address] (ABNORMAL) Differential, Automated (09/01/2014 12:27 PM EDT) [facility] Method Time Signature Neutrophils % 72.2 % CERNER MILLENNIUM Neutr Abs (ANC) 6.43 (H) 1.50 - CERNER 6.30 MILLENNIUM x10(3)/mc L Lymphocytes % 18.9 % CERNER MILLENNIUM Lymphocytes Abs 1.7 1.0 - 3.6 CERNER x10(3)/mc MILLENNIUM L Monocytes % 6.9 % CERNER MILLENNIUM Monocyte Abs 0.6 0.2 - 1.0 CERNER x10(3)/mc MILLENNIUM L Eosinophils % 1.0 % CERNER MILLENNIUM Eosinophils Abs 0.1 0.0 - 0.5 CERNER x10(3)/mc MILLENNIUM L Basophils % 0.6 % CERNER MILLENNIUM Basophils Abs 0.0 0.0 - 0.2 CERNER x10(3)/mc MILLENNIUM L Immature Gran % 0.40 % CERNER MILLENNIUM Comment: Immature granulocytes(IG's)percentage an d absolute count will include metamyelocytes, myelocytes, and promyelo cytes. Blood smears from CBCs yielding IG's will be scanned manually for concor dance. If this scan disagrees with the automated IG or if promyelocytes are not ed, a manual differential will be performed. Shanae Gran Abs 0.04 0.00 - 0.05 x10(3)/mcL CER NER MILLENNIUM Specimen Anatomical Collection Method Collection Time Receive d Time (Source) Location / / Volume Laterality Blood specimen 09/01/2014 12:27 5 (specimen) PM EDT 12:41 PM EDT Resulting Agency Comment Spec In Lab Delbert Greenberg MD HEMATOLOGY ORDERABLES Performing Organization Address City/State/ZIP Code Phon e Number [place] [phone] CERNER MILLENNIUM (ABNORMAL) Hemogram (09/01/2014 12:27 PM EDT) P athologist Signature WBC 8.9 4.0 - 10.0 CERNER x10(3)/mcL MILLENNIUM RBC 3.92 (L) 3.93 - CERNER 5.22 MILLENNIUM x10(6)/mcL Hemoglobin 11.4 11.2 - CERNER 15.7 gm/dL MILLENNIUM Hematocrit 36.9 34.0 - CERNER 45.0 % MILLENNIUM MCV 94.1 (H) 79.0 - CERNER 94.0 fL MILLENNIUM MCH 29.1 26.6 - CERNER 32.2 pg MILLENNIUM MCHC 30.9 (L) 32.0 - CERNER 36.5 gm/dL MILLENNIUM Platelets 296 145 - 370 CERNER x10(3)/mcL MILLENNIUM RDWSD 49.1 (H) 35.0 - CERNER 46.0 fL [facility] RDWCV 14.4 10.9 - CERNER 14.4 % MILLENNIUM MPV 10.8 9.0 - 12.0 CERNER fL [facility] Specimen Anatomical Collection Method Collection Time Receive d Time (Source) Location / / Volume Laterality Blood specimen 09/01/2014 12:27 5 (specimen) PM EDT 12:41 PM EDT Resulting Agency Comment Spec In Lab Delbert Greenberg MD HEMATOLOGY ORDERABLES Performing Organization Address City/State/ZIP Code Phon e Number [address] [facility] Lactate Dehydrogenase (09/01/2014 12:27 PM EDT) athologist Signature LDH 176 110 - 220 CERNER unit/L [facility] Specimen Anatomical Collection Method Collection Time Receive d Time (Source) Location / / Volume Laterality Blood specimen 09/01/2014 12:27 5 (specimen) PM EDT 12:41 PM EDT Resulting Agency Comment Spec In Lab Delbert Greenberg MD CHEMISTRY ORDERABLES Performing Organization Address City/[facility]/ZIP Code Phon e Number [address] [facility] ([facility]NORMAL) Comprehensive metabolic panel (non-fasting) (09/01/2014 12:27 PM EDT) athologist Signature Glucose Lvl 122 60 - 199 CERNER mg/dL [facility] Comment: Diabetes: >=200 mg/dL plus symp toms BUN 19 (H) 8 - 18 mg/dL CERNER MILLENNIUM Creatinine 1.23 (H) 0.70 - 1.20 mg/dL CERNER MILL ENNIUM Comment: Please note that the pediatric reference intervals supplied above were not validated at [facility]. Results from pediatri c patients should be [...] the following links into your internet browser. [email or web address] Specimen Anatomical Collection Method Collection Time Receive d Time (Source) Location / / Volume Laterality Blood specimen 09/01/2014 12:27 5 (specimen) PM EDT 12:41 PM EDT Resulting Agency Comment Spec In Lab Delbert Greenberg MD CHEMISTRY ORDERABLES Performing Organization Address City/State/ZIP Code Phon e Number [place] [phone] CERNER MILLENNIUM documented in this encounter Visit Diagnoses Diagnosis Malignant neoplasm of bronchus and lung, unspecified site Malignant neoplasm of lung, unspecified laterality, unspecified part of lung documented in this encounter Care Teams Information Technology Analyst Relationship Specialty Start Date End Date Gerry Hackett MD PCP - General 03/14/10 06/18/[address] [place] [address] documented as of this encounter
--- OUTSIDE RECORDS SUMMARY | 2022-02-02 00:32 | XMS_ITS | Encounter Summary ---
:1950 Author Organization [facility] [place] [address] Care Team Providers Name Role Phone Gerry Hackett MD Primary Care Provider [phone] Encounter Details Date Type Department Care Team Description 02/15/2015 Surgery Outpatient Surgery Petr Lawler MD CATARACT EXTRACTION, [facility] EXTRACAPSULAR, W/ [facility] DR INSERTION (WRVU 8.52) [facility] [place] [address] [place] [address] [phone] Social History Tobacco Use Types Packs/Day Years [...] or additional concerns or questions please call: [phone] 8am to 5pm. After 5pm, please call [phone] and ask for opthalmology MD soa integration architect. documented in this encounter Medications at Time of Discharge Medication Sig Dispensed Refills Start Date End Date lisinopril Take 15 mg by mouth 0 08/24/2014 (PRINIVIL;ZESTRIL) 30 mg daily. Tablet PROAIR HFA 90 Inhale 2 puffs into 0 02/27/2013 mcg/actuation inhaler the lungs as needed. Reported on 09/25/2016 OXYGEN-AIR DELIVERY by [facility].(Non-Drug; 0 SYSTEMS (WALKABOUT 2 Combo Route) route OXYGEN SYSTEM [facility]) as needed. atorvastatin (LIPITOR) 40 Take 40 [...] MD - 02/15/2015 7:16 AM EDT Pennie Turner Michael reports no new symptoms or other change in her health since her preoperative history and physical exam was performed yesterday. Her exam reveals no significant changes. She is breathing comfortably, without cyanosis or use of accessory muscles. Vital signs are within acceptable parameters. The eyes are quiet without discharge or other signs of active infection. The sedation plan was reviewed with Pennie Johnny Rodriguez and she expressed understanding and agreement. Vincent [...] operative team. Monitors were placed by the enrollment nurse. Topical anaesthetic was placed in the left [...] emulsified with the phacoemulsification handpiece in a dttghw-tyt-bnygavx fashion. Residual cortical material was removed with the automated irrigation/aspiration unit. The posterior capsule was polished. The capsular bag was inflated with viscoelastic. An Model [id number] posterior chamber lens with a 6mm acrylic optic was inspected and found to be without defects, placed in the [place] [employer] middle school teacher cartridge, and injected into the capsular bag [...] 04/04/2022 Office Visit Dermatology Celena Salazar MD [facility] DR THERESE LEOS-DERMAT [place], [place] [address] (Wo rk) documented as of [...] of both eye s Senile nuclear sclerosis Age-related nuclear cataract of both eye s [...] Meche Banuelos RN)0745 (Given - Provider: Meche Banuelos, BINDU)0754 (Given - Provider: Meche Banuelos, BINDU) 1 [...] (COMPLET ED) 0727 (Given - Provider: Meche Banuelos, BINDU)0747 (Given - Provider: Meche Banuelos, BINDU)0757 (Given - Provider: Meche Banuelos RN) 1 [...] 1 drop (COMPLETED) 0734 (Given - Provider: Meche Banuelos, Artie N) 1 drop, Left Eye, ONCE, 1 dose, 01/21 at 0730, 1 drop to the operative eye once, start on day of surgery, Day of Surgery (Day of Procedure), Routine Continuous Medication Order 02/13/2015 02/14/2015 02/15/2015 lactated ringers infusion 1,000 mL (CANCELED) 0736 (New Bag - Provider: Meche Banuelos, BINDU) 1,000 mL, at 100 mL/hr, Intravenous, CON TINUOUS, Starting Sat02/15/15 at 0730, Until Sat02/15/15 at 0856, Day of Surgery (Day of Procedure) documented in this encounter Care Teams Grade Checker Relationship Specialty Start Date End Date Gerry Hackett MD PCP - General 03/14/10 06/18/17 [address] [place] [address] documented as of this encounter
--- OUTSIDE RECORDS SUMMARY | 2022-02-02 00:32 | XMS_ITS | Encounter Summary ---
:1950 [place] [address] Care Team Providers Name Role Phone Gerry Hackett MD Primary Care Provider [phone] Encounter Details Date Type Department Care Team Description 02/15/2015 Anesthesia Event Outpatient Surgery Tameka Lopez MD [facility] [place] [address] [facility] Jarred Griffith [facility] [place] [address] [place] [address] Anesthesia Record Procedure Summary Procedure Name Responsible Anesthesia Start Anesthesia Stop Time Anesthesiologist Time CATARACT Tameka Lopez MD 02/15/15 0823 02/15 0848 EXTRACTION, EXTRACAPSULAR, W/ LENS INSERTION (WRVU 8.52) (Left Eye) Events Date Time Event Comment 02/15/2015 0810 0823 AN Verify 0823 Start 0823 An Start Data 0844 an stop data 0848 Stop 0848 Handoff Intra-procedure anesthesia care was transferred after review of the phill meehan's history, current anesthetic/surgi braulio status and plan, according to the ANES Provider Verduzco ndoff Checklist. Name Total Midazolam 2 mg fentaNYL 25 mcg Lactated Ringers 200 mL Agents Name O2 Blood No blood administrations on file. Lines, Drains, and Airways Type Details Placement Removal Incision 02/15/15; eye; 12/18/21 (LDA 02/15/15 0000 by Sn ow, 12/18/21 1715 by cleanup utility RA#[id number]); BINDU Oliver Yola 1715 (LDA cleanup utility RA#[id number]) PIV 02/15/15; 0739; cephalic 02/15/15 0739 by Carmen r, 02/15/15 0855 by vein right (lateral side of Meche Turner RN Albin ier, Meche Turner RN arm); vnzu-jpd-dvmhbr catheter system; 22 gauge; intradermal injection, tolerated well; no longer indicated, catheter intact, removed per policy/procedure; 02/15/15; 0855 documented in this encounter Social History Tobacco Use Types Packs/Day Years Used Date Former Smoker Quit: 04/04/19 99 Smokeless Tobacco: Never Used Alcohol Use Standard Drinks/Week Comments No 0 (1 standard drink = 0.6 oz pure alcoho l) Sex Assigned at Date Recorded Not on file documented as of this encounter OR Notes Anesthesia Postprocedure Evaluation - Tameka Lopez MD - 02/15/2015 9:06 AM EDT Patient: Pennie Rodriguez Procedure(s) Performed: Procedure(s): CATARACT EXTRACTION, EXTRACAPSULAR, W/ LENS INSERTION Actual Anesthetic: MAC Patient location: PACU Post-op pain: Adequate analgesia Post-op nausea: no nausea or vomiting Last Vitals: Filed Vitals: 02/15/15 0849 BP: 133/105 Pulse: 94 Temp: 36.8 ??C (98.2 ??F) Resp: 18 Post-op cardiovascular and respiratory status: is stable Level of consciousness: awake, alert and oriented Complications: no apparent complications and tolerated the procedure well Fluid Status: normal Anesthesia Preprocedure Evaluation - Tameka Lopez MD - 02/15/2015 8:09 AM EDT Pre-Anesthesia Evaluation for: Pennie Rodriguez a 64 [...] 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 Smoking status: Former Smoker Quit date: 04/04/1999 ??? Smokeless tobacco: Never Used ??? Alcohol Use: No History Drug Use No Allergies Allergen Reactions ??? Morphine Sulfate Nausea And Vomiting Medications: MAR and/or home medications have been reviewed. Physical Exam: Filed Vitals: 02/15/15 0727 BP: 153/81 Pulse: 89 Temp: 36.6 ??C (97.9 ??F) Resp: 18 Body mass index is 49.74 kg/(m^2). Height: 167.6 cm (5' 6) Weight - Scale: 139.708 kg (308 lb) Airway Assessment: Mallampati: II TM distance: >3 FB Neck ROM: full Cardiovascular Assessment: cardiovascular exam normal Pulmonary Assessment: (-) wheezes Dental Assessment: - normal exam Misc Assessment: IV access: Peripheral line Anesthesia Plan: ASA 3 MAC, with a(n) intravenous induction Plan MAC with RM- GA backup. Plans and risks reviewed. Questions answered. Region - Other Informed Consent: Anesthetic plan and risks discussed with patient. Plan discussed with PEDIATRIC OPHTHALMOLOGIST and attending. PAT Staff Note documented in this encounter Plan of Treatment Upcoming Encounters Date Type Specialty Care Team Description 04/04/2022 Office Visit Dermatology Celena Salazar MD [facility] DR THERESE LEOS-DERMAT [place], [place] [address] (Wo rk) documented as of this encounter Visit Diagnoses Not on filedocumented in this encounter Administered Medications Inactive Administered Medications - up to 3 most recent administrations Medication Order MAR Action Action Date Dose Rate Site fentaNYL 50 mcg/mL multi-dose Given 02/15/2015 8:26 AM EDT 25 mc g injection PRN, Starting on Sat02/15/15 at 0826, Until Sat02/15/15 at 0849, Pain, Anesthesia Intra-op, Routine lactated ringers infusion New Bag 02/15/2015 8:20 AM EDT CONTINUOUS PRN, Starting on Sat02/15/15 at 0820, Until Sat02/15/15 at 0849, Anesthesia Intra-op midazolam (PF) (VERSED) 1 mg/mL multi-dose Given 02/15/2015 8:23 AM EDT 2 mg injection PRN, Starting on Sat02/15/15 at 0823, Until Sat02/15/15 at 0849, Sleep, Anesthesia Intra-op, Routine documented in this encounter Care Teams Food Production Worker Relationship Specialty Start Date End Date Gerry Hackett MD PCP - General 03/14/10 06/18/[address] [place] [address] documented as of this encounter
--- OUTSIDE RECORDS SUMMARY | 2022-02-02 00:32 | XMS_ITS | Encounter Summary ---
:1950 Author Organization [facility] Address [facility] [address] [place] [address] Care Team Providers Name Role Phone Gerry Hackett MD Primary Care Provider [phone] Encounter Details Date Type Department Care Team Description 01/14/2015 Anesthesia Event Same Day [place] [facility] Shar Juares, [facility] [place] [address] [facility] Shar Mckeon, [facility] [place] [address] [place] [address] Anesthesia Record Procedure Summary Procedure Name Responsible Anesthesiologist Anesthesia Start Ti me Anesthesia Stop Time cataract sx Events No events on file. No medications on file. Agents No agents on file. Blood No blood administrations on file. Lines, Drains, and Airways No LDAs on file. documented in this encounter Social History Tobacco Use Types Packs/Day Years Used Date Former Smoker Quit: 04/04/19 99 Smokeless Tobacco: Never Used Alcohol Use Standard Drinks/Week Comments No 0 (1 standard drink = 0.6 oz pure alcoho l) Sex Assigned at Date Recorded Not on file documented as of this encounter OR Notes Anesthesia Preprocedure Evaluation - Shar Juares - 01/14/2015 8:21 AM EDT Images from the original note were not included. Pre-Anesthesia Evaluation for: Pennie Rodriguez a 64 y.o. female. Patient Active Problem List Diagnosis ??? Cataracts, bilateral ??? Myopia ??? Presbyopia OU ??? IDDM (insulin dependent diabetes mellitus) ??? [...] ??? Alcohol Use: No History Drug Use Not on file Allergies Allergen Reactions ??? Morphine Sulfate Nausea And Vomiting Medications: MAR and/or home medications have been reviewed. Physical Exam: There were no vitals filed for this visit. There is no weight on file to calculate BMI. Airway Assessment: Mallampati: III TM distance: >3 FB Neck ROM: full Cardiovascular Assessment: cardiovascular exam normal Pulmonary Assessment: (+) decreased breath sounds (absent left side) (-) rhonchi, wheezes, rales and stridor PE comment: Patient s/p L pneumonectomy. Dental Assessment: Misc Assessment: Anesthesia Plan: ASA 3 MAC, with a(n) intravenous induction This is a PRELIMINARY NOTE for procedure scheduled on date TBD. Pt has not been seen by an assigned anesthesia provider nor is the anesthetic plan listed below final. This is a 64 y.o. female w/ hx L pneumonectomy in 2003 here for preoperative evaluation prior to cataract surgery. She reports having difficulty breathing when she is laying flat for the past 12 years (since pneumonectomy). She states it has NOT progressed since then. She is able to breath better if she brings her knees towards her chest while lying flat. Denies c/p, palpitations, syncope. Reports dyspnea w/ exertion that has not progressed since 2004 pneumonectomy. Medical Hx: COPD, DM, Asthma, HTN, Obesity, Lung Ca (resected), GERD Surgical Hx: pneumonectomy L lung 2003 Anesthetic Hx: GA in past with no adverse events Airway Hx: none available Patient's documented history was negative for seizures, CVA, hepatic/renal disease or coagulopathy. There is no evidence of any recent URI or UTI symptoms, fevers/chills, or other indication of infection. Exercise tolerance: less than 4 METS PFT October 2014: FEV1 1.10 (44%), FVC 2.05 (63%), and FEV1/FVC 53%. Type and Screen: No results found for: ABORH Allergies: -- Morphine Sulfate -- Nausea And Vomiting Anesthetic Plan: The anesthetic plan will be deferred to the primary anesthesia team. MAC Proper patient positioning to help breathing Standard ASA monitoring Adequate IV access SHAR JUARES DO 01/14/2015 Region - Other Informed Consent: Anesthetic plan and risks discussed with patient. [facility]. Assessment: documented in this encounter Plan of Treatment Upcoming Encounters Date Type Specialty Care Team Description 04/04/2022 Office Visit Dermatology Celena Salazar MD [facility] [address] THERESE LE[address]DER[address] [place], [place] [address] (Wo rk) documented as of this encounter Visit Diagnoses Not on filedocumented in this encounter Care Teams Wheel Blocker Relationship Specialty Start Date End Date Gerry Hackett MD PCP - General 03/14/10 06/18/[address] [place] [address] documented as of this encounter
--- OUTSIDE RECORDS SUMMARY | 2022-02-02 00:32 | XMS_ITS | Encounter Summary ---
:1950 Author Organization [facility] [place] [address] Care Team Providers Name Role Phone Gerry Hackett MD Primary Care Provider [phone] Encounter Details Date Type Department Care Team Description 06/22/2014 Telephone Endocrinology at [facility] Jess Guthrie, [place] [address] Social History Tobacco Use Types Packs/Day Years Used Date Former Smoker Quit: 04/04/19 99 Smokeless Tobacco: Never Used Alcohol Use Standard Drinks/Week Comments No 0 (1 standard drink = 0.6 oz pure alcoho l) Sex Assigned at Date Recorded Not on file documented as of this encounter Miscellaneous Notes Telephone Encounter - Jess Martinez, RN - 06/22/2014 10:20 AM EST Pennie calls nurse triage line and left voicemail message stating when she was at appointment with Diane Serra yesterday her A1C was not available. States that she would like to know what it was as last time it was high. Pennie also states that she needs a new prescription for Apidra as the previous one has . Chart reviewed: 06/21/2014 5:04 PM - Chris, [facility] Component Results Component Value Ref Range & Units Status Hemoglobin A1C 8.5 (H) 4.3 - 5.6 % Final Reference Range: 4.3 - 5.6% 5.7 - 6.4% - Increased Risk of Developing Diabetes Mellitus >= 6.5% - Consistent with diagnosis of Diabetes Mellitus In the absence of hyperglycemia (i.e. plasma glucose > 200 mg/dL) or classic symptoms of hyperglycemia a repeat measurement of HbA1c should be performed on a separate sample to confirm the diagnosis. Diagnosis and Classification of Diabetes Mellitus, Diabetes Care 2013; 36: Suppl. 1, T27-27 Placed call to Pennie to give her results. Pennie states understanding. Let Pennie know prescription becky sent to Diane Serra to sign. documented in this encounter Plan of Treatment Upcoming Encounters Date Type Specialty Care Team Description 04/04/2022 Office Visit Dermatology Celena Salazar MD [facility] DR THERESE LEOS[address]DERMAT [place], [place] [address] (Wo rk) documented as of this encounter Visit Diagnoses Not on filedocumented in this encounter Care Teams Accounting Machine Operator Relationship Specialty Start Date End Date Gerry Hackett MD PCP - General 03/14/10 06/18/[address] [place] [address] documented as of this encounter
--- OUTSIDE RECORDS SUMMARY | 2022-02-02 00:32 | XMS_ITS | Encounter Summary ---
:1950 Author Organization [place] [address] Care Team Providers Name Role Phone Gerry Hackett MD Primary Care Provider [phone] Reason for Visit Reason Comments Post Op 1 WK s/p CE IOL OS Encounter Details Date Type Department Care Team Description 02/23/2015 Office Visit Ophthalmology [facility] Vincent Lawler, S/P cataract extraction and insertion of intraocular lens, left; [facility] Age-related nuclear cataract of [place] [address] CENTER [phone] OPHTHALMOLOGY DEPT. [place], [place] [address] Social History Tobacco Use Types Packs/Day Years Used Date Former Smoker Quit: 04/04/19 99 Smokeless Tobacco: Never Used Alcohol Use Standard Drinks/Week Comments No 0 (1 standard drink = 0.6 oz pure alcoho l) Sex Assigned at Date Recorded Not on file documented as of this encounter Progress Notes Vincent Lawler MD - 02/23/2015 3:56 PM EST Assessment/Plan: 1. 1 week s/p CE/IOL OS Doing well with normal postop appearance Stop Vigamox drops Continue prednisolone and ketorolac drops 3x/day for 2 weeks and d/c 2. Cataract OD - visually significant Re-reviewed R/B/Alt to cataract surgery, chance of complications, option of waiting. Lens options and refractive target reviewed. Questions answered. Ms. Rodriguez expresses understanding, requests cataract surgery OD. 3. IDDM Follow up: Cataract surgery second eye, 2 weeks documented in this encounter Plan of Treatment Upcoming Encounters Date Type Specialty Care Team Description 04/04/2022 Office Visit Dermatology Celena Salazar MD [facility] [address] THERESE LEOS-DERMAT [place], [place] [address] (Wo rk) documented as of this encounter Procedures Procedure Name Priority Date/Time Associated Diagnosis Comme nts CATARACT EXTRACTION, Routine 02/23/2015 5:07 PM EST Age-relate d nuclear EXTRACAPSULAR, W/ LENS cataract of right eye INSERTION documented in this encounter Visit Diagnoses Diagnosis S/P cataract extraction and insertion of intraocular lens, left Age-related nuclear cataract of right ey e Senile nuclear sclerosis documented in this encounter Care Teams Water Plant Pump Operator Relationship Specialty Start Date End Date Gerry Hackett MD PCP - General 03/14/10 06/18/[address] [place] [address] documented as of this encounter
--- OUTSIDE RECORDS SUMMARY | 2022-02-02 00:32 | XMS_ITS | Encounter Summary ---
:1950 Author Organization [facility] [place] [address] Care Team Providers Name Role Phone Gerry Hackett MD Primary Care Provider Encounter Details Date Type Department Care Team Description 09/01/2014 Hospital Encounter Hematology and CLINIC, DR CONV [facility] [place] [facility] Delbert Greenberg MD [facility] [place] [address] [place] [address] Social History Tobacco Use Types Packs/Day [...] needed. Reported on 09/25/2016 OXYGEN-AIR DELIVERY by [facility].(Non-Drug; 0 SYSTEMS (WALKABOUT 2 Combo Route) route OXYGEN SYSTEM MISC) as needed. atorvastatin (LIPITOR) 40 Take 40 mg by mouth 0 mg tablet daily. cyanocobalamin, vitamin Take 1,000 mcg by 0 B-12, 250 mcg tablet mouth daily. aspirin 81 mg EC tablet Take 81 mg by mouth 0 daily. pramoxine (PROCTOFOAM) 1 0 03/07/2010 % foam insulin glargine (LANTUS) Inject 34 Units 0 12/29/2014 Insulin PenIndications: subcutaneously Malignant neoplasm of nightly. bronchus and lung, unspecified site insulin glulisine (APIDRA Inject 4-10 Units 15 [...] unit/mL (3 subcutaneously mL) pen injection nightly. lisinopril Take 40 mg by mouth 0 12/29 (PRINIVIL;ZESTRIL) 40 mg daily. tablet fluticasone-salmeterol Inhale 1 puff into 0 07/27/2019 [...] Visit Dermatology Celena Salazar MD [facility] [address] THERESE LEOS-DER[place], [place] [address] (Wo rk) documented as of this encounter Visit Diagnoses Not on filedocumented in this encounter Care Teams Stewarding Supervisor Relationship Specialty Start Date End Date Gerry Hackett MD PCP - General 03/14/10 06/18/[address] [place] [address] documented as of this encounter
--- OUTSIDE RECORDS SUMMARY | 2022-02-02 00:32 | XMS_ITS | Encounter Summary ---
:1950 Author Organization [facility] [place] [address] Care Team Providers Name Role Phone Gerry Hackett MD Primary Care Provider [phone] Encounter Details Date Type Department Care Team Description 03/15/2015 Surgery Outpatient Surgery Petr Lawler MD CATARACT EXTRACTION, [facility] EXTRACAPSULAR, W/ [facility] DR INSERTION (WRVU 8.52) [facility] [place] [address] [place] [address] [phone] Social History Tobacco Use Types Packs/Day Years Used Date Former Smoker Quit: 04/04/19 99 Smokeless Tobacco: Never Used Alcohol Use Standard Drinks/Week Comments No 0 (1 standard drink = 0.6 oz pure alcoho l) Sex Assigned at Date Recorded Not on file documented as of this encounter Last Filed Vital Signs Vital Sign Reading Time Taken Comments Blood Pressure 105/87 03/15/2015 9:28 AM EST Pulse 99 03/15/2015 9:28 AM EST Temperature 36.6 ??C (97.9 ??F) 03/15/2015 9:28 AM EST Respiratory Rate 20 03/15/2015 9:28 AM EST Oxygen Saturation 100% 03/15/2015 9:28 AM EST Inhaled Oxygen Concentration - - Weight 136.1 kg (300 lb) 03/15/2015 7:59 AM EST Height 167.6 cm (5' 6) 03/15/2015 7:59 AM EST Body Mass Index 48.42 03/15/2015 7:59 AM EST documented in this encounter Discharge Instructions Discharge InstructionsPaulette Thomas RN - 03/15/2015 8:22 AM EST Home Care Instructions after Cataract Surgery Do [...] Lawler is in the Eye Clinic Desk 4-I tomorrow. You may have received medication before [...] or additional concerns or questions please call: [phone] 8am to 5pm. After 5pm, please call [phone] and ask for opthalmology MD gas station clerk. Moderate Sedation You may have received medication before and/or during your procedure, which affects your judgement and reaction time. Do not drive, operate machinery, drink alcoholic beverages, or make any legal decisions for 24 hours. Be careful on stairs, as you may be unsteady on your feet. You may eat a regular diet as tolerated. Do not smoke if you are alone. IV site -- slight redness, or tenderness is normal, you can use a warm compress. If tenderness and redness increases or foul drainage occurs, please contact your M. D. Questions or problems after 5pm or on a weekend: Call the [facility] jack tamp operator and ask for the physician on callcovering for your doctor. documented in this encounter Medications at Time of Discharge Medication Sig Dispensed Refills Start Date End Date lisinopril Take 15 mg by mouth 0 08/24/2014 (PRINIVIL;ZESTRIL) 30 mg daily. Tablet PROAIR HFA 90 Inhale 2 puffs into 0 02/27/2013 mcg/actuation inhaler the lungs as needed. Reported on 09/25/2016 OXYGEN-AIR DELIVERY by [facility] [place].(Non-Drug; 0 SYSTEMS (WALKABOUT 2 Combo Route) [place] [facility] [place] as needed. atorvastatin (LIPITOR) 40 Take 40 mg by mouth 0 mg tablet daily. cyanocobalamin, vitamin Take 1,000 mcg by 0 B-12, 250 mcg tablet mouth daily. aspirin 81 mg EC tablet Take 81 mg by mouth 0 daily. pramoxine (PROCTOFOAM) 1 % 0 0 foam insulin glulisine (APIDRA Inject 4-10 Units [...] encounter H&P Notes Vincent Lawler MD - 03/15/2015 8:12 AM EST Pennie Rodriguez reports no new symptoms or other change in her health since her preoperative history and physical exam was performed less than 30 days ago, except for a recent URI with increased wheezing. Her exam reveals mild wheezing and a low grade fever. She will be taking her inhaler and will be assessed by Dr. Griffith for final clearance before surgery. The sedation plan was reviewed with Dr. Griffith and Pennie Rodriguez and she expressed understanding andagreement. Addendum: significant clearing of wheezing following inhaler: plan to proceed. Vincent Lawler MD - 03/15/2015 8:12 AM EST See H&P from Gerry Hackett documented in this encounter Miscellaneous Notes Op Note - Vincent Lawler MD - 03/15/2015 9:23 AM EST Pre-op diagnosis: Nuclear sclerotic cataract, right eye Post-op diagnosis: Same Surgeon: Vincent Lawler MD Name of procedure: Phacoemulsification of cataract with posterior chamber intraocular lens implant, right eye Anesthesia: Subtenons retrobulbar block, MAC Description of procedure: The right eye was marked preoperatively. A latex-free procedure was performed. The patient was brought into the operating suite, positioned in the supine position, and the patient's identity was verified by the surgeon and operative team. Monitors were placed by the retail sales clerk. Topical anaesthetic was placed in the right eye. The patient's right eye was prepped with Betadine, including a drop of Betadine in the cul-de-sac. The eye was draped in the usual fashion for intraocular surgery, isolating the eyelashes from the surgical field. An open wire lid speculum was placed. Theoperating microscope was positioned. A buttonhole incision was [...] emulsified with the phacoemulsification handpiece in a boyblc-eks-bumxyav fashion. Residual cortical material was removed with the automated irrigation/aspiration unit. The posterior capsule was polished. The capsular bag was inflated with viscoelastic. An Model SN60WF posterior chamber lens with a 6mm acrylic optic was inspected and found to be without defects, placed in the [place] III research associate professor cartridge, and injected into the capsular bag [...] OSC Recovery in stable condition. Lens: SN60WF +19.5 diopter PCIOL EBL <1cc Specimen Removed: None (cataract emulsified, not saved as specimen) Drains: None Surgical Closure: Primary Complications: None Attestation: I performed this procedure without the involvement of a resident. 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 Start day of surgery, Day of Surgery (Day of Procedure), Routine Given 03/15/2015 8:22 AM EST 1 drop Given 03/15/2015 8:17 AM EST 1 drop ketorolac tromethamine (ACULAR) 0.5 % Given 03/15/2015 8:[address] 1 drop ophthalmic solution 1 drop 1 drop, Right Eye, ONCE, 1 dose, On Sat03/15/15 at 0800, 1 drop to the operative eye once, start on day of surgery, Day of Surgery (Day of Procedure), Routine lactated ringers infusion 1,000 New Bag 03/15/2015 8:31 AM EST 1,000 mLs 100 mL/hr mL 1,000 mL, at 100 mL/hr, Intravenous, CONTINUOUS, Starting on Sat03/15/15 at 0800, Until Sat03/15/15 at 1147, Day of Surgery (Day of Procedure) moxifloxacin (VIGAMOX) 0.5 % ophthalmic Given 03/15/2015 8:28 AM EST 1 drop solution 1 drop 1 drop, Right Eye, EVERY 5 MIN, 3 doses, First dose on Sat03/15/15 at 0800, Last dose on Sat03/15/15 at 0810, 1 drop to the operative eye every 5 minutes times 3. Start on the day of surgery., Day of Surgery (Day of Procedure), Routine Given 03/15/2015 8:23 AM EST 1 drop Given 03/15/2015 8:18 AM EST 1 drop PHENYLephrine (MYDFRIN) 2.5 % ophthalmic Given 03/15/2015 8:29 A M EST 1 drop solution 1 drop 1 drop, Right Eye, EVERY 5 MIN, 3 doses, First dose on Sat03/15/15 at 0800, Last dose on Sat03/15/15 at 0810, 1 drop to the operative eye every 5 minutes times 3. Start on the day of surgery., Day of Surgery (Day of Procedure), Routine Given 03/15/2015 8:22 AM EST 1 drop Given 03/15/2015 8:17 AM EST 1 drop prednisoLONE acetate (PRED FORTE) 1 % Given 03/15/2015 8:[address] 1 drop ophthalmic suspension 1 drop 1 drop, Right Eye, ONCE, 1 dose, On Sat03/15/15 at 0800, 1 drop to the operative eye once, start on day of surgery, Day of Surgery (Day of Procedure), Routine documented in this encounter Active and Recently Administered Medications Times are shown in EST. Scheduled Medication Order 03/13/2015 03/14/2015 03/15/2015 cyclopentolate (CYCLODRYL) 1 % ophthalmic solution 1 drop (COMPL ETED) 0817 (Given - Provider: Paulette Thomas RN)0822 (Given - Provider: Paulette Thomas RN)0829 (Given - Provider: Paulette Thomas RN) 1 drop, Right Eye, EVERY 5 MIN, 3 doses, First dose on Sat03/15/15 at 0800, Last dose on Sat03/15/15 at 0810, 1 drop to the operative eye every 5 minutes times 3. Start day of surgery, Day of Surgery (Day of Procedure), Routine ketorolac tromethamine (ACULAR) 0.5 % ophthalmic solution 1 drop (COMPLETED) 0817 (Given - Provider: Paulette Thomas RN) 1 drop, Right Eye, ONCE, 1 dose, Sat at 0800, 1 drop to the operative eye once, start on day of surgery, Day of Surgery (Day of Procedure), Routine moxifloxacin (VIGAMOX) 0.5 % ophthalmic solution 1 drop (COMPLET ED) 0818 (Given - Provider: Paulette Thomas, BINDU)0823 (Given - Provider: Paulette Thomas, BINDU)0828 (Given - Provider: Paulette Thomas RN) 1 drop, Right Eye, EVERY 5 MIN, 3 doses, First dose on Sat03/15/15 at 0800, Last dose on Sat03/15/15 at 0810, 1 drop to the operative eye every 5 minutes times 3. Start on the day of surgery., Day of Surgery (Day of Procedure), Routine PHENYLephrine (MYDFRIN) 2.5 % ophthalmic solution 1 drop (COMPLE MARCO) 0817 (Given - Provider: Paulette Thomas RN)0822 (Given - Provider: Paulette Thomas, BINDU)0829 (Given - Provider: Paulette Thomas, BINDU) 1 drop, Right Eye, EVERY 5 MIN, 3 doses, First dose on Sat03/15/15 at 0800, Last dose on Sat03/15/15 at 0810, 1 drop to the operative eye every 5 minutes times 3. Start on the day of surgery., Day of Surgery (Day of Procedure), Routine prednisoLONE acetate (PRED FORTE) 1 % ophthalmic suspension 1 drop (COMPLETED) 0817 (Given - Provider: Paulette Thomas RN) 1 drop, Right Eye, ONCE, 1 dose, Sat at 0800, 1 drop to the operative eye once, start on day of surgery, Day of Surgery (Day of Procedure), Routine Continuous Medication Order 03/13/2015 03/14/2015 03/15/2015 lactated ringers infusion 1,000 mL (CANCELED) 0800 (Due)0858 (New Bag - Provider: Anne Ravi CRNA)0927 (Anesthesia Volume Adjustment - Provider: Anne Ravi CRNA) 1,000 mL, at 100 mL/hr, Intravenous, CON TINUOUS, Starting Sat03/15/15 at 0800, Until Sat03/15/15 at 1147, Day of Surgery (Day of Procedure) lactated ringers infusion 1,000 mL (CANCELED) 0831 (New Bag - Provider: Paulette Thomas RN) 1,000 mL, at 100 mL/hr, Intravenous, CON TINUOUS, Starting Sat03/15/15 at 0800, Until 03/15/15 at 1147, Day of Surgery (Day of Procedure) documented in this encounter Care Teams Platform Man Relationship Specialty Start Date End Date Gerry Hackett MD PCP - General 03/14/10 06/18/[address] [place] [address] documented as of this encounter
--- OUTSIDE RECORDS SUMMARY | 2022-02-02 00:32 | XMS_ITS | Encounter Summary ---
:1950 Author Organization [facility] [place] [address] Care Team Providers Name Role Phone Gerry Hackett MD Primary Care Provider [phone] Reason for Visit Reason Comments Post Op S/P CE with IOL OD, 1 week f /u Flashes Of Light OS when in bright lights Encounter Details Date Type Department Care Team Description 03/23/2015 Office Visit Ophthalmology [facility] Vincent Lawler, S/P cataract [facility] [place] [address] CENTER intraocular lens, OPHTHALMOLOGY right DEPT. [place], [place] [address] Social History Tobacco Use Types Packs/Day Years Used Date Former Smoker Quit: 04/04/19 99 Smokeless Tobacco: Never Used Alcohol Use Standard Drinks/Week Comments No 0 (1 standard drink = 0.6 oz pure alcoho l) Sex Assigned at Date Recorded Not on file documented as of this encounter Progress Notes Vincent Lawler MD - 03/23/2015 3:02 PM EST Assessment/Plan: 1. 1 week s/p CE/IOL OD Doing well with normal postop appearance Stop Vigamox drops Continue prednisolone and ketorolac drops 3x/day for 2 weeks and d/c 2. 1 month s/p CE/IOL OS Doing well off drops with a normal post operative appearance. 3. IDDM Follow up: 1 month DMM, for final postop visit and glasses Rx documented in this encounter Plan of Treatment Upcoming Encounters Date Type Specialty Care Team Description 04/04/2022 Office Visit Dermatology Celena Salazar MD [facility] ER DR THERESE LE[address]-DER[address] [place], [place] [address] (Wo rk) documented as of this encounter Visit Diagnoses Diagnosis S/P cataract extraction and insertion of intraocular lens, right documented in this encounter Care Teams Dry Placer Machine Operator Relationship Specialty Start Date End Date Gerry Hackett MD PCP - General 03/14/10 06/18/[address] [place] [address] documented as of this encounter
--- OUTSIDE RECORDS SUMMARY | 2022-02-02 00:32 | XMS_ITS | Encounter Summary ---
:1950 Author Organization [facility] [place] [address] Care Team Providers Name Role Phone Gerry Hackett MD Primary Care Provider [phone] Encounter Details Date Type Department Care Team Description 08/26/2013 Hospital Encounter Hematology and Oncology CLINIC, [facility] [place] [facility] [place]a Harrell MD [facility] DR HEMATOLOGY/[place] [address] [place] [address] Social History Tobacco Use Types Packs/Day Years Used Date Former Smoker Quit: 04/04/19 99 Smokeless Tobacco: Never Used Alcohol Use Standard Drinks/Week Comments No 0 (1 standard drink = 0.6 oz pure alcoho l) Sex Assigned at Date Recorded Not on file documented as of this encounter Medications at Time of Discharge Medication Sig Dispensed Refills Start Date End Date PROAIR HFA 90 Inhale 2 puffs into 0 02/27/2013 mcg/actuation inhaler the lungs as needed. Reported on 09/25/2016 OXYGEN-AIR DELIVERY by [facility] [place] [facility].(Non-Drug; 0 SYSTEMS (WALKABOUT 2 Combo Route) route [place]GEN [place] [facility] as needed. atorvastatin (LIPITOR) 40 Take 40 mg by mouth 0 mg tablet daily. cyanocobalamin, vitamin Take 1,000 mcg by 0 B-12, 250 mcg tablet mouth daily. aspirin 81 mg EC tablet Take 81 mg by mouth 0 daily. pramoxine (PROCTOFOAM) 1 % 0 0 foam Calcium Carbonate-Vitamin Take by mouth daily. 0 10/31/2020 D3 (CALCIUM 500 + D) 500 mg(1,250mg) -400 unit Chew insulin glargine (LANTUS Inject 40 Units 0 01/04/2016 SOLOSTAR) 100 unit/mL (3 subcutaneously mL) pen injection nightly. lisinopril Take 40 mg by mouth 0 12/29 (PRINIVIL;ZESTRIL) 40 mg daily. tablet insulin glulisine (APIDRA Inject 6-10 Units 15 mL 12 11/201206/22/2014 SOLOSTAR) 100 unit/mL pen subcutaneously 2 injection times daily (before meals). fluticasone-salmeterol Inhale 1 puff into 0 07/27/2019 [...] Celena Salazar MD [facility] [address] [place], [place] [address] (Wo rk) documented as of this encounter Visit Diagnoses Not on filedocumented in this encounter Care Teams Research Chef Relationship Specialty Start Date End Date Gerry Hackett MD PCP - General 03/14/10 06/18/[address] [place] [address] documented as of this encounter
--- OUTSIDE RECORDS SUMMARY | 2022-02-02 00:32 | XMS_ITS | Encounter Summary ---
:1950 Author Organization [facility] Address [address] [place] [address] Care Team Providers Name Role Phone Gerry Hackett MD Primary Care Provider [phone] Encounter Details Date Type Department Care Team Description 03/15/2015 Hospital Encounter Outpatient Surgery Vincent Lawler ge-related nuclear Center Ana Mello MD cataract of right [facility] [place] [address] [phone] Social History Tobacco Use Types Packs/Day Years [...] or additional concerns or questions please call: [phone] 8am to 5pm. After 5pm, please call [phone] and ask for opthalmology MD personal financial planner. Moderate Sedation You may have received medication [...] 5pm or on a weekend: Call the [facility] labelling machine operator and ask for the physician on callcovering for your doctor. documented in this encounter Medications at Time of Discharge Medication Sig Dispensed Refills Start Date End Date lisinopril Take 15 mg by mouth 0 08/24/2014 (PRINIVIL;ZESTRIL) 30 mg daily. Tablet PROAIR HFA 90 Inhale 2 puffs into 0 02/27/2013 mcg/actuation inhaler the lungs as needed. Reported on 09/25/2016 OXYGEN-AIR DELIVERY by [facility].(Non-Drug; 0 SYSTEMS (WALKABOUT 2 Combo Route) route OXYGEN SYSTEM [facility] [place]) as needed. atorvastatin (LIPITOR) 40 Take 40 [...] operative team. Monitors were placed by the trading manager. Topical anaesthetic was placed in the right [...] emulsified with the phacoemulsification handpiece in a pzkgco-uec-mpxyvrg fashion. Residual cortical material was removed with the automated irrigation/aspiration unit. The posterior capsule was polished. The capsular bag was inflated with viscoelastic. An Model SN60WF posterior chamber lens with a 6mm acrylic optic was inspected and found to be without defects, placed in the [place] III agricultural research technologist cartridge, and injected into the capsular bag [...] Dermatology Celena Salazar MD [facility] [address] [place], [place] [address] (Wo rk) documented as of [...] (COMPLET ED) 0818 (Given - Provider: Paulette Thomas RN)0823 (Given - Provider: Paulette Thomas RN)0828 (Given - Provider: Paulette Thomas RN) 1 [...] (COMPLE MARCO) 0817 (Given - Provider: Paulette Thomas, RN)0822 (Given - Provider: Paulette Thomas, RN)0829 (Given - Provider: Paulette Thomas RN) [...] at 100 mL/hr, Intravenous, CON TINUOUS, Starting e 03/15/15 at 0800, Until 03/15/15 at 1147, Day of Surgery (Day of Procedure) documented in this encounter Care Teams Pharmacy Assistant Relationship Specialty Start Date End Date Gerry Hackett MD PCP - General 03/14/10 06/18/[address] [place] [address] documented as of this encounter
--- OUTSIDE RECORDS SUMMARY | 2022-02-02 00:32 | XMS_ITS | Encounter Summary ---
:1950 Author Organization [facility] [place] [address] Care Team Providers Name Role Phone Gerry Hackett MD Primary Care Provider [phone] Encounter Details Date Type Department Care Team Description 01/13/2015 [place] [address] Anesthesia Record Procedure Summary Procedure Name [...] Celena Salazar MD [facility] [address] [place], [place] [address] (Wo rk) documented as of this encounter Visit Diagnoses Not on filedocumented in this encounter Care Teams Grappler Relationship Specialty Start Date End Date Gerry Hackett MD PCP - General 03/14/10 06/18/[address] [place] [address] documented as of this encounter
--- OUTSIDE RECORDS SUMMARY | 2022-02-02 00:32 | XMS_ITS | Encounter Summary ---
:1950 Author Organization [facility] [place] [address] Care Team Providers Name Role Phone Gerry Hackett MD Primary Care Provider [phone] Reason for Visit Reason Comments Diabetes Encounter Details Date Type Department Care Team Description 12/29/2014 Office Visit Endocrinology at [facility] Diane Lewis, Type II or unspecified type diabetes mellitus without mention of complication, not stated as uncontrolled; [facility] FOOD AND BEVERAGE LEAD Type II or unspecified type diabetes татьяна litus with renal manifestations, not stated [place] [address] CENTER [phone] ENDOCRINOLOGY DEPT. [place], [place] [address] Social History Tobacco Use Types Packs/Day Years Used Date Former Smoker Quit: 04/04/19 99 Smokeless Tobacco: Never Used Alcohol Use Standard Drinks/Week Comments No 0 (1 standard drink = 0.6 oz pure alcoho l) Sex Assigned at Date Recorded Not on file documented as of this encounter Last Filed Vital Signs Vital Sign Reading Time Taken Comments Blood Pressure 158/95 12/29/2014 12:55 PM EDT Pulse 87 12/29/2014 12:55 PM EDT Temperature - - Respiratory Rate - - Oxygen Saturation - - Inhaled Oxygen Concentration - - Weight 141.1 kg (311 lb) 12/29/2014 12:55 PM EDT Height 165.3 cm (5' 5.08) 12/29/2014 12:55 PM EDT Body Mass Index 51.63 12/29/2014 12:55 PM EDT documented in this encounter Patient Instructions Patient InstructionsDiane Serra APRN - 12/29/2014 1:20 PM EDT May need low dose of apidra before high carbohydrate meal Try Jo joya documented in this encounter Progress Notes Diane Serra APRN - 12/29/2014 1:45 PM EDT DATE OF VISIT: 12/29/2014. REASON FOR VISIT: Follow up type 2 DM, in good/fair overall control. Also, obesity and hypertension, in good control. BRIEF HISTORY: Presents and states she has planned cataract surgery. Has been advised that her glucose needs to be in good control prior to the surgery. DIABETES REGIMEN: Lantus 34 units in p.m., glimepiride 4 mg in a.m., sitagliptin 50 mg in a.m., Apidra, will only take that if glucose levels are high or if she is going to eat a large amount; metformin XR 500 mg two tablets in a.m. COMPLICATIONS: Chronic kidney disease. 24-HOUR MEAL PLAN: Varies. States her son is trying to lose weight and he is encouraging her to also attempt some weight loss. Breakfast was a homemade biscuit and butter. Morning snack was fruit. Evening meal was chicken with gravy and a biscuit, carrots, and potato salad. Evening snack has been trail mix with nuts. PHYSICAL ACTIVITY: Not too much. Ambulates with assistance of a wheeled walker and has oxygen via nasal cannula when needed. Past medical and surgical history is significant for lung cancer, had left lung removed. REVIEW OF SYSTEMS: Depression and Mood: Overall is doing okay. Her grown son with schizophrenia and diabetes lives with her. Enjoys time with her 35-[id number]-[id number] granddaughter. Eyes: Looking forward to having cataracts removed. She does have shortness of breath and uses oxygen via nasal cannula as needed. No recent chest pain. Sleep pattern is okay. Extremities: Has some joint pains. PHYSICAL EXAMINATION: Appearance: She is obese with a very large central girth. Weight 311 pounds, same as it was a year ago. Eyes: Difficult to assess for retinopathy related to cataracts. Neck: No thyromegaly or lymphadenopathy. Heart: Regular rate and rhythm. No murmurs. Lungs: No lung sounds on left. Right lung sounds are normal. Feet: Skin is normal. Pulses are normal. Neuro: Normal sensation to 10 g of pressure. Hemoglobin A1c is 7.9%. IMPRESSION AND PLAN: Diabetes mellitus type 2, in good overall control. Previous hemoglobin A1c 8.5%. The patient states she is going to try harder to eat smaller portions and drink more water. She states food is her comfort and she knows that she needs to attempt weight loss. She has been advised by the design engineering specialist to attempt weight loss. Pleased that her hemoglobin A1c has gone down to 7.9%. Gave her copy of her lab results and reviewed them with her. Return to office in six months. Will check eyagvbwqjnW2p, creatinine, and VLDL. Advised the patient when glucose levels are over 150 before meals to use a low dose of the Apidra three to four units before those meals. Encouraged to check glucose daily or more often. This was a 34-minute office visit with 33 minutes spent counseling [id number] with the patient in the management of glucose levels, stressing the importance of trying to limit calorie intake to avoid weight gain and to attempt a 5 to 10-pound weight loss, and congratulated her with lowering hemoglobin A1c. Recent Results (from the past 72 hour(s)) Hemoglobin A1c Result Value Ref Range Hemoglobin A1C 7.9 (H) 4.3 - 5.6 % Est Avg Gluc 180 mg/dL documented in this encounter Plan of Treatment Upcoming Encounters Date Type Specialty Care Team Description 04/04/2022 Office Visit Dermatology Celena Salazar MD [facility] ER DR THERESE LEOS[address]MAT [place], [place] [address] (Wo rk) documented as of this encounter Procedures Procedure Name Priority Date/Time Associated Diagnosis Comme nts HEMOGLOBIN A1C Routine 12/29/2014 11:48 AM Type II or unspecif ied Results for this EDT type diabetes mellitus proce dure are in without mention of the resul ts complication, not section. stated as uncontrolled documented in this encounter Results (ABNORMAL) Vitamin B12 (07/04/2015 11:48 AM EDT) Analysis Performed At Patho logist Time Signature Vitamin B-12 1,461 (H) 207 - 972 [facility] pg/mL [facility] Specimen Anatomical Collection Method Collection Time Receive d Time (Source) Location / / Volume Laterality Blood specimen 07/04/2015 11:48 6 (specimen) AM EDT 12:03 PM EDT Resulting Agency Comment Spec In Lab Pratik Cee MD CHEMISTRY ORDERABLES Performing Organization Address City/[facility]/ZIP Code Phon e Number [place] [phone] LDL Cholesterol, Direct (07/04/2015 11:48 AM EDT) P athologist Signature LDL Chol 79 <=99 mg/dL [facility] Comment: The National Cholesterol Education Progr am (NCEP) has set the following guidelines for LDL Cholesterol: Reference range: ?? Optimal: ?<100 mg/dL ?? Near Optimal/Above Optimal: ?? 100-1 29 mg/dL ?? Borderline high: ?130-159 mg/dL ?? High: ? 160-189 mg/dL ?? Very high: ?>cp=342 mg/dL ARIADNE 2001: 285(19):1966-5268 Specimen Anatomical Collection Method Collection Time Receive d Time (Source) Location / / Volume Laterality Blood specimen 07/04/2015 11:48 6 (specimen) AM EDT 12:02 PM EDT Resulting Agency Comment Spec In Lab Pratik Cee MD CHEMISTRY ORDERABLES Performing Organization Address City/[facility]/[place] [address] (ABNORMAL) Hemoglobin A1c (07/04/2015 11:48 AM EDT) Analysis Performed At Patho logist Time Signature Hemoglobin A1C 9.0 (H) 4.3 - 5.6 [facility] Comment: Reference Range: 4.3 - [...] Mellitus, Diabetes Care 2013; 36: Suppl. 1, S67-68 Est Avg Gluc 212 mg/dL [facility] Comment: eAG equivalents for HbA1c percentages: HbA1c(%) ?eAG(mg/dL) 6.0 ?126 6.5 ?140 7.0 ?154 7.5 ?169 8.0 ?183 8.5 ?197 9.0 ?212 9.5 ?226 10.0 ? 240 Limitations: The eAG calculation has not been validated on women, individuals below 18 years old and above 70 years old, and individuals with hemoglobinopathies. Additional resources are available on e [place] website: http://[employer].Health Access Solutions/DHMCadacalc Chevy PARTIDA, Jr J, Syed R, et al. ??Tr anslating the A1C assay into estimated average glucose values. ??Diabetes Care 2008:31(8):1717-2394. Specimen Anatomical Collection Method Collection Time Receive d Time (Source) Location / / Volume Laterality Blood specimen 07/04/2015 11:48 6 (specimen) AM EDT 12:03 PM EDT Resulting Agency Comment Spec In Lab Pratik Cee MD CHEMISTRY ORDERABLES Performing Organization Address City/[facility]/[place] [address] (ABNORMAL) Creatinine (07/04/2015 11:48 AM EDT) P athologist Signature Creatinine 1.21 (H) 0.70 - [facility] 1.20 mg/dL [facility] Comment: Please note that the pediatric reference intervals supplied above were not validated at [facility]. Results from pediatri c patients should be interpreted in conjunction to the patient's age, height and muscle mass. Estimated GFR 45 (L) >=60 [facility] Comment: This estimated GFR (eGFR) [...] the following links into your internet browser. [email or web address] Specimen Anatomical Collection Method Collection Time Receive d Time (Source) Location / / Volume Laterality Blood specimen 07/04/2015 11:48 6 (specimen) AM EDT 12:02 PM EDT Resulting Agency Comment Spec In Lab Pratik Cee MD CHEMISTRY ORDERABLES Performing Organization Address City/[facility]/[place] [address] (ABNORMAL) Hemoglobin A1c (12/29/2014 11:48 AM EDT) [...] Mellitus, Diabetes Care 2013; 36: Suppl. 1, S67-27 Est Avg Gluc 180 mg/dL [facility] Comment: eAG equivalents for HbA1c percentages: HbA1c(%) ?eAG(mg/dL) 6.0 ?126 6.5 ?140 7.0 ?154 7.5 ?169 8.0 ?183 8.5 ?197 9.0 ?212 9.5 ?226 10.0 ? 240 Limitations: The eAG calculation has not been validated on women, individuals below 18 years old and above 70 years old, and individuals with hemoglobinopathies. Additional resources are available on [facility] website: http://[employer].Health Access Solutions/MCadacalc Chevy PARTIDA, Jr Spencer, Syed R, et al. ??Tr anslating the A1C assay into estimated average glucose values. ??Diabetes Care 2008:31(8):0734-6454. Specimen Anatomical Collection Method Collection Time Receive d Time (Source) Location / / Volume Laterality Blood specimen 12/29/2014 11:48 5 (specimen) AM EDT 12:04 PM EDT Resulting Agency Comment Spec In Lab Pratik Cee MD CHEMISTRY ORDERABLES Performing Organization Address City/State/[place] [address] CERNER MILLENNIUM documented in this encounter Visit Diagnoses Diagnosis Type II or unspecified type diabetes татьяна litus without mention of complication, not stated as uncontrolled Type II or unspecified type diabetes татьяна litus with renal manifestations, not stated as uncontrolled(250.40) Type II or unspecified type diabetes татьяна litus with renal manifestations, not stated as uncontrolled documented in this encounter Care Teams Polyethylene Combiner Relationship Specialty Start Date End Date Gerry Hackett MD PCP - General 03/14/10 06/18/[address] [place] [address] documented as of this encounter
--- OUTSIDE RECORDS SUMMARY | 2022-02-02 00:32 | XMS_ITS | Encounter Summary ---
:1950 Author Organization [facility] [address] Care Team Providers Name Role Phone Gerry Hackett MD Primary Care Provider [phone] Reason for Visit Reason Onset Date Comments Medication Refill 06/27/2015 Encounter Details Date Type Department Care Team Description 06/27/2015 Refill Endocrinology at [facility] Diane Lewis APRN [facility] [place] [address] ENDOCRINOLOGY DEPT. [phone] [place], [place] [address] (Wo rk) Social History Tobacco [...] [facility] ER DR THERESE LEOS[address]DERMAT [place], [place] [address] (Wo rk) documented as of this encounter Visit Diagnoses Not on filedocumented in this encounter Care Teams Revenue Officer Relationship Specialty Start Date End Date Gerry Hackett MD PCP - General 03/14/10 06/18/17 [address] [place], [place] [id number] documented as of this encounter
--- OUTSIDE RECORDS SUMMARY | 2022-02-02 00:32 | XMS_ITS | Encounter Summary ---
:1950 Author Organization [facility] [place] [address] Care Team Providers Name Role Phone Gerry Hackett MD Primary Care Provider [phone] Reason for Visit Reason Comments Diabetes Encounter Details Date Type Department Care Team Description 07/04/2015 Office Visit Endocrinology at [facility] C Diane Serra, Type 1 diabetes [facility] BLOOD BANK ATTENDANT mellitus with stage 2 [facility] [place] [address] disease [phone] END[address] DEPT[address] [place], [place] [address] Social History Tobacco Use Types Packs/Day Years Used Date Former Smoker Quit: 04/04/19 99 Smokeless Tobacco: Never Used Alcohol Use Standard Drinks/Week Comments No 0 (1 standard drink = 0.6 oz pure alcoho l) Sex Assigned at Date Recorded Not on file documented as of this encounter Last Filed Vital Signs Vital Sign Reading Time Taken Comments Blood Pressure 122/68 07/04/2015 12:42 PM EDT Pulse 89 07/04/2015 12:42 PM EDT Temperature - - Respiratory Rate - - Oxygen Saturation - - Inhaled Oxygen Concentration - - Weight 141.5 kg (312 lb) 07/04/2015 12:42 PM EDT Height 165.3 cm (5' 5.08) 07/04/2015 12:42 PM EDT Body Mass Index 51.79 07/04/2015 12:42 PM EDT documented in this encounter Patient Instructions Patient InstructionsDiane Serra, BLOOD BANK ATTENDANT - 07/04/2015 1:08 PM EDT More vegetables and fruits and less concentrated sweets Attempt 12 lb weight loss documented in this encounter Progress Notes Diane Serra APRN - 07/04/2015 1:51 PM EDT DATE OF VISIT: 07/04/15 REASON FOR VISIT: Follow up type-2 DM now in very poor control. Also, obesity, hypertension in good control. BRIEF HISTORY: Presents and states it has been a long winter and she has not been as careful with her meal plan. Diabetes regimen: Lantus 34 units in p.m., glimepiride 4 mg in a.m., metformin XR 500 mg 2 tablets in a.m., sitagliptin 50 mg daily, Apidra insulin (only takes it if glucose levels are elevated). Complications: Chronic kidney disease. Xkfdke-kjzw-guda meal plan: States her son will be following Nutrisytem soon, and she thinks that will also be helpful to her. She admits she has been eating more doughnuts and sweets. Had cheesecake today. Physical activity: Not much. Ambulates with assistance of a wheeled walker and uses oxygen via nasal cannula when needed. PAST MEDICAL/SURGICAL HISTORY: Significant for lung cancer. Had left lung removed. REVIEW OF SYSTEMS: Depression and mood: Discusses some higher stress at times with her son, who has schizophrenia. She enjoys time with her granddaughter, Yasmeen. Her other son has weekly visits with her. Eyes: Has had cataracts removed. Has an appointment scheduled with letter stamping machine operator. No recent chest pain. She does have shortness of breath and uses oxygen. Sleep pattern is okay. Extremities: Has some joint pains. PHYSICAL EXAM: APPEARANCE: She is obese with a very large central girth. She has gained 12 pounds since February. EYES: No retinopathy with green light exam. NECK: No thyromegaly or lymphadenopathy. HEART: Regular rate and rhythm. No murmurs. LUNGS: Right lung sounds are clear to auscultation. FEET: Skin is normal. Pulses are normal. NEURO: Normal sensation to 10 g's of pressure. Hemoglobin A1C 9.0%. Previous was 7.9% in December. Blood pressure 122/68. Weight 312 pounds. IMPRESSION AND PLAN: DM type 2 now in very poor control. Patient checks glucose levels once a day. Advised okay to continue to check once a day but one week check before breakfast and the next week check before evening meal. Reviewed her 24-hour meal plan. Encouraged her to increase her intake of vegetables. She states she does not enjoy cooking, but she is willing to try to purchase frozen steamed vegetables and microwave them. She states she thinks she will be a little bit more active and get out of the house more now that spring is coming. Return to office in 6 months. Will check hemoglobin A1C. Gave patient copy of her lab results and reviewed them with her. Kidney function is stable. GFR is 45. This was a 34-minute office visit with 33 minutes spent counseling face to face with patient in the management of glucose levels, reviewing a healthy meal plan with suggestions to lower caloric intake. Recent Results (from the past 72 hour(s)) Creatinine Result Value Ref Range Creatinine 1.21 (H) 0.70 - 1.20 mg/dL Estimated GFR 45 (L) >=60 Hemoglobin A1c Result Value Ref Range Hemoglobin A1C 9.0 (H) 4.3 - 5.6 % Est Avg Gluc 212 mg/dL LDL Cholesterol, Direct Result Value Ref Range LDL Chol Direct 79 <=99 mg/dL Vitamin B12 Result Value Ref Range Vitamin B-12 1461 (H) 207 - 974 pg/mL documented in this encounter Plan of Treatment Upcoming Encounters Date Type Specialty Care Team Description 04/04/2022 Office Visit Dermatology Celena Salazar MD [facility] ER DR THERESE LEOS-DERMAT [place], [place] [address] (Wo rk) documented as of this encounter Results (ABNORMAL) Hemoglobin A1c (01/04/2016 12:17 PM EDT) Analysis Performed At [facility] Time Signature Hemoglobin A1C 8.4 (H) 4.3 - 5.6 [facility] [...] 1, S67-74 Est Avg Gluc 194 mg/dL [facility] Comment: eAG equivalents for HbA1c percentages: HbA1c(%) ?eAG(mg/dL) 6.0 ?126 6.5 ?140 7.0 ?154 7.5 ?169 8.0 ?183 8.5 ?197 9.0 ?212 9.5 ?226 10.0 ? 240 Limitations: The eAG calculation has not been validated on women, individuals below 18 years old and above 70 years old, and individuals with hemoglobinopathies. Additional resources are available on [employer] website: http://[employer].Medicine in Practice/DHMCadacalc Chevy PARTIDA, Jr Spencer, Syed R, et al. ??Tr anslating the A1C assay into estimated average glucose values. ??Diabetes Care 2008:31(8):0702-6716. Specimen Anatomical Collection Method Collection Time Receive d Time (Source) Location / / Volume Laterality Blood specimen 01/04/2016 12:17 6 (specimen) PM EDT 12:30 PM EDT Resulting Agency Comment Spec In Lab Pratik Cee MD CHEMISTRY ORDERABLES Performing Organization Address City/State/ZIP Code [place] [address] documented in this encounter Visit Diagnoses Diagnosis Type 1 diabetes mellitus with stage 2 ch ronic kidney disease Type I (juvenile type) diabetes mellitus with renal manifestations, not stated as uncontrolled documented in this encounter Care Teams Senior Communications Engineer Relationship Specialty Start Date End Date Gerry Hackett MD PCP - General 03/14/10 06/18/[address] [place] [address] documented as of this encounter
--- OUTSIDE RECORDS SUMMARY | 2022-02-02 00:32 | XMS_ITS | Encounter Summary ---
:1950 Author Organization [facility] Address [address] [facility] [place] [address] Care Team Providers Name Role Phone Gerry Hackett MD Primary Care Provider [phone] Reason for Visit Reason Comments Post Op 1 day s/p CE IOL OS Encounter Details Date Type Department Care Team Description 02/16/2015 Office Visit Ophthalmology [facility] Vincnet Lawler, S/P cataract [facility] MD extraction and [facility] MEDICAL [facility] [place] [address] CENTER intraocular lens, OPHTHALMOLOGY left DEPT. [place], [place] [address] Social History Tobacco Use Types Packs/Day Years Used Date Former Smoker Quit: 04/04/19 99 Smokeless Tobacco: Never Used Alcohol Use Standard Drinks/Week Comments No 0 (1 standard drink = 0.6 oz pure alcoho l) Sex Assigned at Date Recorded Not on file documented as of this encounter Progress Notes Vincent Lawler MD - 02/16/2015 8:14 AM EDT Assessment/Plan: 1. 1 day s/p cataract surgery OS Doing well with a normal post operative appearance. - Prednisolone acetate 1% 3x/d in operative eye - Moxifloxicin 3x/d in operative eye - Ketorolac 3x/d in operative eye - Post op precaution sheet reviewed and given to patient 2. Cataract OD Anticipate CE/IOL 3 weeks 3. IDDM Follow up: - 1 week DMM, sooner as needed. - Refract (prelim), dilate prn, and consent 2nd eye surgery documented in this encounter Plan of Treatment Upcoming Encounters Date Type Specialty Care Team Description 04/04/2022 Office Visit Dermatology Celena Salazar MD [facility] ER DR THERESE LEOS-DER[place], [place] [address] (Wo rk) documented as of this encounter Visit Diagnoses Diagnosis S/P cataract extraction and insertion of intraocular lens, left documented in this encounter Care Teams Net Solutions Architect Relationship Specialty Start Date End Date Gerry Hackett MD PCP - General 03/14/10 06/18/[address] [place] [address] documented as of this encounter
--- OUTSIDE RECORDS SUMMARY | 2022-02-02 00:32 | XMS_ITS | Encounter Summary ---
:1950 [address] Organization [facility] [place] [address] Care Team Providers Name Role Phone Gerry Hackett MD Primary Care Provider [phone] Reason for Visit Reason Comments Follow-up Encounter Details Date Type Department Care Team Description 11/10/2014 Follow-Up Pul[place]ology [place] [facility] [place] Jerrod Freitas DOE (dyspnea on [facility] MD exertion) [place] [address] PULMONARY MEDICI [place] [id number] (Wo rk) Social History Tobacco Use Types Packs/Day Years Used Date Former Smoker Quit: 04/04/19 99 Smokeless Tobacco: Never Used Alcohol Use Standard Drinks/Week Comments No 0 (1 standard drink = 0.6 oz pure alcoho l) Sex Assigned at Date Recorded Not on file documented as of this encounter Last Filed Vital Signs Vital Sign Reading Time Taken Comments Blood Pressure - - Pulse - - Temperature - - Respiratory Rate 24 11/10/2014 10:49 AM EDT Oxygen Saturation - - Inhaled Oxygen Concentration - - Weight 137.4 kg (303 lb) 11/10/2014 10:49 AM EDT Height 167.6 cm (5' 6) 11/10/2014 10:49 AM EDT Body Mass Index 48.91 11/10/2014 10:49 AM EDT documented in this encounter Progress Notes Jerrod Freitas MD - 11/10/2014 1:38 PM EDT This 64-year-old woman comes in for evaluation of shortness of breath. I actually saw Pennie in 2003, when she was diagnosed with [id number] lung cancer. At the time of diagnosis, her FEV1 was 1.60 (63%), with an FVC of 2.61 (76%), and diffusing capacity of 20.9 (91%). She subsequently underwent left pneumonectomy, followed by chemotherapy and radiation. I have not seen her in the past 11 years. Pennie comes in today because of progressive shortness of breath. She has actually been limited for quite some time. For example, for the past nine years, she has used motorized scooter for traversing any significant distances. For example, if she were to shop at [employer], she would move around the store on her scooter. Her symptoms have reached the point where she now gets short of breath with mild activities, including her ADLs. She says that she has learned to pace herself and plan ahead so as to avoid new breathlessness. She wheezes when she is exerting herself, but otherwise no chest pain, chest tightness, cough, or sputum production. She is currently maintained on Spiriva, Advair, and p.r.n. albuterol, though she uses the albuterol on average of only about once a month. She has been maintained on p.r.n. oxygen, which she uses only when she is going to walk a significant distance. Pennie says that she thinks she had pulmonary function test in 2005, and was told she was 48% of predicted. Her past medical history is otherwise notable for diabetes, hyperlipidemia, and morbid obesity. She has also been found to have bilateral cataracts. Her surgical history includes only tonsillectomy in the distant past. Family history is negative for any lung disease. PERSONAL AND SOCIAL HISTORY: She smoked for a total of about 20 years, quit altogether in 1995. She has a dog at home. She never was able to return to work after her surgery. REVIEW OF SYSTEMS: She does snore, and says that she will doze off reading or watching TV, though has not fallen asleep while driving. She denies lower extremity edema. She has had ongoing problems with her weight for years. Complete review of systems is otherwise negative except as previously outlined. On exam, she is a morbidly obese but otherwise healthy-appearing woman. Her BMI was 49. HEENT: Anicteric sclerae, normal TMs, normal nasal and oral mucosa. Her neck was supple. There is no cervical or supraclavicular lymphadenopathy. Her right lung was completely clear. I did not appreciate a murmur. Her abdomen was obese, otherwise unremarkable. She has mild pitting lower extremity edema. PFTs today: FEV1 1.10 (44%), FVC 2.05 (63%), and FEV1/FVC 53%. As mentioned, the last PFTs I had available were from 2003. I personally reviewed her radiographic studies. She had a chest x-ray on 09/01/2014 which shows a clear right lung which now extends across the midline. IMPRESSION: As I discussed with Pennie, her dyspnea is almost certainly multifactorial, with underlying obstructive lung disease, prior pneumonectomy, and morbid obesity all playing contributing factors. She is already on an appropriate regimen for her COPD, and I have little to add in that regard. She wondered whether she really needs the inhaled steroid. She did have a long history of asthma prior to her pneumonectomy, and does report intermittent wheezing, so I think it is reasonable to continue it in addition to her long-acting bronchodilators. Unfortunately, she has struggled with morbid obesity for years, though that is clearly the only remaining factor that is potentially modifiable. Finally, I think a sleep study, which has previously been recommended to her, is appropriate, as I think the likelihood that she has sleep apnea is fairly high. I did not schedule Pennie for a followup visit, but told her I would be glad to see her any time she or Dr. Hackett thought it would be helpful. documented in this encounter Plan of Treatment Upcoming Encounters Date Type Specialty Care Team Description 04/04/2022 Office Visit Dermatology Celena Salazar MD [facility] ER [address] [place], [place] [address] (Wo rk) Pending Results Name Type Priority Associated Diagnoses Date/Ti me Pulmonary Function PFT Routine IZQUIERDO (dyspnea on 2014 11:32 AM EDT Testing exertion) Scheduled Orders Name Type Priority Associated Diagnoses Order S chedule Pulmonary Function PFT Routine IZQUIERDO (dyspnea on exerti on) Expected: 11/10/2014 Testing (Approximate), Expires: 2015 documented as of this encounter Visit Diagnoses Diagnosis IZQUIERDO (dyspnea on exertion) Other dyspnea and respiratory abnormalit y documented in this encounter Care Teams Operations Engineer Relationship Specialty Start Date End Date Gerry Hackett MD PCP - General 03/14/10 06/18/[address] [place] [address] documented as of this encounter
--- OUTSIDE RECORDS SUMMARY | 2022-02-02 00:32 | XMS_ITS | Encounter Summary ---
:1950 Author Organization [facility] Address [address] [place] [address] Care Team Providers Name Role Phone Gerry Hackett MD Primary Care Provider [phone] Encounter Details Date Type Department Care Team Description 08/26/2013 [place] En[place] [facility] [place] of 1 [facility] bronchus and lung, [place] [address] unspecified site [phone] Social History Tobacco Use Types Packs/Day Years [...] Reported on 09/25/2016 OXYGEN-AIR DELIVERY by [facility].(Non-Drug; 0 SYSTEMS (WALKABOUT 2 Combo Route) route [...] Celena Salazar MD [facility] ER [address] [place], [place] [address] (Wo rk) documented as of this encounter Procedures Procedure Name Priority Date/Time Associated Diagnosis Comme nts XR CHEST PA AND Routine 08/26/2013 1:26 PM Malignant neoplasm Results for this LATERAL EDT of bronchus and procedure ar e in lung, unspecified the result s site section. documented in this encounter Results XR chest routine PA & lateral (08/26/2013 1:26 PM EDT) Anatomical Region Laterality Modality Chest N/A Radiographic Imaging Specimen (Source) Anatomical Collection Method Collection Time Re ceived Time Location / / Volume Laterality 08/26/2013 1:26 PM EDT Narrative 08/26/2013 2:11 PM EDT Examination CHEST ROUTINE PA+LAT Clinical History LUNG CA Comparison 08/26/2012. Technique PA and lateral views of the chest. Findings The post-pneumonectomy appearance of the left hemithorax is unchanged. ??Right lung remains clear. ??No pleural effusio n is seen on the right. ??The cardiomediastinal silhouette is obscured . ??No significant osseous findings are identified. Impression Stable radiographic appearance of the ch est compared to 08/26/2012. Procedure Note Verena Albright MD - 08/26/2013Formatt ing of this note might be different from the original. Examination CHEST ROUTINE PA+LAT Clinical History LUNG CA Comparison 08/26/2012. Technique PA and lateral views of the chest. Findings The post-pneumonectomy appearance of the left hemithorax is unchanged. Right lung remains clear. No pleural effusion is seen on the right. The cardiomediastinal silhouette is obscured . No significant osseous findings are identified. Impression Stable radiographic appearance of the ch est compared to 08/26/2012. Ochoa Harrell MD IMG DX ORDERABLES documented in this encounter Visit Diagnoses Diagnosis Malignant neoplasm of bronchus and lung, unspecified site documented in this encounter Care Teams Runstitching Machine Operator Relationship Specialty Start Date End Date Gerry Hackett MD PCP - General 03/14/10 06/18/17 [address] [address] documented as of this encounter
--- OUTSIDE RECORDS SUMMARY | 2022-02-02 00:32 | XMS_ITS | Encounter Summary ---
:1950 Author Organization [facility] [place] [address] Care Team Providers Name Role Phone Gerry Hackett MD Primary Care Provider [phone] Reason for Visit Reason Comments Post Op 1 day ck s/p CE/IOL OD Encounter Details Date Type Department Care Team Description 03/16/2015 Office Visit Ophthalmology [facility] Vincent Lawler, S/P cataract [facility] MD [place] [address] [place] [address] intraocular lens, OPHTHALMOLOGY right DEPT. [place], [place] [address] Social History Tobacco Use Types Packs/Day Years Used Date Former Smoker Quit: 04/04/19 99 Smokeless Tobacco: Never Used Alcohol Use Standard Drinks/Week Comments No 0 (1 standard drink = 0.6 oz pure alcoho l) Sex Assigned at Date Recorded Not on file documented as of this encounter Progress Notes Vincent Lawler MD - 03/16/2015 7:47 AM EST Assessment/Plan: 1. 1 day s/p cataract surgery OD Doing well with a normal post operative appearance. - Prednisolone acetate 1% 3x/d in operative eye - Moxifloxicin 3x/d in operative eye - Ketorolac 3x/d in operative eye - Post op precaution sheet reviewed and given to patient 2. 3 weeks s/p cataract surgery OS Doing well off drops Follow up: - 1 week DMM, sooner as needed. - Refract (prelim), dilate prn [id number] 11/12/2014 Current eyesight causes problems in everyday life Yes, great problems Content with current eyesight Very unsatisfied Read the newspaper No problems Recognize faces of approaching person Very great problems Read the thompson tag on shopping items Slight problems Recognize uneven surfaces while walking Slight problems Do handicraft or woodwork No problems Read text and subtitles on TV Great problems Work/have a hobby Slight problems [id number] -0.15 documented in this encounter Plan of Treatment Upcoming Encounters Date Type Specialty Care Team Description 04/04/2022 Office Visit Dermatology Celena Salazar MD [facility] ER [address] [place], [place] [address] (Wo rk) documented as of this encounter Visit Diagnoses Diagnosis S/P cataract extraction and insertion of intraocular lens, right documented in this encounter Care Teams Brick Offbearer Relationship Specialty Start Date End Date Gerry Hackett MD PCP - General 03/14/10 06/18/[address] [place] [address] documented as of this encounter
--- OUTSIDE RECORDS SUMMARY | 2022-02-02 00:32 | XMS_ITS | Encounter Summary ---
:1950 Author Organization [facility] [place] [address] Care Team Providers Name Role Phone Gerry Hackett MD Primary Care Provider [phone] Encounter Details Date Type Department Care Team Description 11/10/2014 Hospital Encounter Pulmonology at [facility] SCHEDULE 1, PFT IZQUIERDO (dyspnea on [facility] Jerrod Freitas MD [facility] [place] [address] exertion) [place] [address] Social History Tobacco Use Types Packs/Day Years [...] needed. Reported on 09/25/2016 OXYGEN-AIR DELIVERY by [facility] [place]Non-Drug; 0 SYSTEMS (WALKABOUT 2 Combo Route) route [...] mg tablet documented as of this encounter Procedure Notes Ochoa Posada Jr., MD - 11/10/2014 10:32 PM EDT Pulmonary Function Testing Spirometry shows severe airflow obstruction with reduced FVC. Ochoa Posada MD Pulmonary Medicine documented in this encounter Plan of Treatment Upcoming Encounters Date Type Specialty Care Team Description 04/04/2022 Office Visit Dermatology Celena Salazar MD [facility] ER [address] [place], [place] [address] (Wo rk) Pending Results Name Type Priority Associated Diagnoses Date/Ti me Pulmonary Function PFT Routine IZQUIERDO (dyspnea on 2014 11:32 AM EDT Testing exertion) Scheduled Orders Name Type Priority Associated Diagnoses Order S chedule Pulmonary Function PFT Routine IZQUIERDO (dyspnea on 1 Occu rrences starting Testing exertion) 11/10/2014 unti l 11/10/2014 documented as of this encounter Visit Diagnoses Diagnosis IZQUIERDO (dyspnea on exertion) Other dyspnea and respiratory abnormalit y documented in this encounter Care Teams Plan Coordinator Relationship Specialty Start Date End Date Gerry Hackett MD PCP - General 03/14/10 06/18/[address] [place] [address] documented as of this encounter
--- OUTSIDE RECORDS SUMMARY | 2022-02-02 00:32 | XMS_ITS | Encounter Summary ---
:1950 Author Organization [facility] Address [address] [place] [address] Care Team Providers Name Role Phone Gerry Hackett MD Primary Care Provider [phone] Encounter Details Date Type Department Care Team Description 09/01/2014 Hospital Encounter X[place] [facility] [place] Malignant neoplasm of 1 [facility] bronchus and lung, [place] [address] unspecified site [phone] Social History Tobacco Use Types Packs/Day Years [...] Reported on 09/25/2016 OXYGEN-AIR DELIVERY by [facility] [place].(Non-Drug; 0 SYSTEMS (WALKABOUT 2 [...] 04/04/2022 Office Visit Dermatology Celena Salazar MD [facility] [address] [place], [place] [address] (Wo rk) documented as of this encounter Procedures Procedure Name Priority Date/Time Associated Diagnosis Comme nts XR CHEST PA AND Routine 09/01/2014 12:40 PM Malignant neoplasm Results for this LATERAL [...] attending Delbert Greenberg MD IMG DX ORDERABLES documented in this encounter Visit Diagnoses Diagnosis Malignant neoplasm of bronchus and lung, unspecified site documented in this encounter Care Teams Fundraising Director Relationship Specialty Start Date End Date Gerry Hackett MD PCP - General 03/14/10 06/18/[address] [place] [address] documented as of this encounter
--- OUTSIDE RECORDS SUMMARY | 2022-02-02 00:32 | XMS_ITS | Encounter Summary ---
:1950 Author Organization [facility] Address [facility] [place] [address] Care Team Providers Name Role Phone Gerry Hackett MD Primary Care Provider [phone] Reason for Visit Reason Comments Follow-up Lung Cancer Encounter Details Date Type Department Care Team Description 08/26/2013 Follow-Up Hematology and RigOchoa ojeda MD Malignant neoplasm of bronchus and lung, unspecified site; Oncology at [facility] Non-small cell lung cancer, left [facility] [address] HEMATOLOGY/[place] [address] DEPT. [phone] [place], [place] [address] (Wo rk) Social History Tobacco Use Types Packs/Day Years Used Date Former Smoker Quit: 04/04/19 99 Smokeless Tobacco: Never Used Alcohol Use Standard Drinks/Week Comments No 0 (1 standard drink = 0.6 oz pure alcoho l) Sex Assigned at Date Recorded Not on file documented as of this encounter Last Filed Vital Signs Vital Sign Reading Time Taken Comments Blood Pressure 149/95 08/26/2013 1:47 PM EDT Pulse 101 08/26/2013 1:47 PM EDT Temperature 36.4 ??C (97.5 ??F) 08/26/2013 1:47 PM EDT Respiratory Rate 22 08/26/2013 1:47 PM EDT Oxygen Saturation 97% 08/26/2013 1:47 PM EDT Inhaled Oxygen Concentration - - Weight 141.1 kg (311 lb 1.1 oz) 08/26/2013 1:47 PM EDT Height 165 cm (5' 4.96) 08/26/2013 1:47 PM EDT Body Mass Index 51.83 08/26/2013 1:47 PM EDT documented in this encounter Progress Notes Ochoa Harrell MD - 08/26/2013 2:03 PM EDT Subjective: Patient ID: Pennie Rodriguez is a 62 y.o. female with resected stage IIIA ([id number]) non-small cell lungcancer in March of 2004. She received adjuvant chemotherapy followed by post-operative RT. Returning for follow-up. HPI In the interim, this patient is doing pretty well. She reports no new lung cancer-related symptoms. She denies cough, no hemoptysis, no chest pain other than the pain at the site of her left pneumonectomy, and stable dyspnea exertion. She has gained weight in the interim. She reports no hospitalizations, emergency room visits and continues routine care with her primary care provider. She has no residual adverse events from her adjuvant chemotherapy and sequential postoperative radiation therapy. Shereports no significant alopecia, hearing impairment, peripheral neuropathy, bowel or bladder dysfunction, skin rash or fingernail changes. She has no swallowing difficulties. She does have persistent left chest pain from her thoracotomy and left pneumonectomy. Her respiratory status is decrease from baseline but stable over five-years. Review of Systems Constitutional: Negative for activity change, appetite change and fatigue. Over weight Eyes: Negative. Respiratory: Positive for shortness of breath. Negative for wheezing. Stable s/p L pneumoectomy Cardiovascular: Negative. Gastrointestinal: Negative. Genitourinary: Negative. Musculoskeletal: Negative. Skin: Negative. Negative for rash. Neurological: Negative. Hematological: Negative. MEDICATIONS AND ALLERGIES: Please see this patient's medications and allergies from today, 08/26/2013.I personally reviewed this patient's medications and allergies. Current Outpatient Prescriptions on File Prior to Visit Medication Sig Dispense Refill ??? PROAIR HFA 90 mcg/actuation inhaler Inhale 2 puffs into the lungs as needed. ??? tiotropium (SPIRIVA) 18 mcg inhalation capsule with device Inhale 18 mcg into the lungs daily. ??? OXYGEN-AIR DELIVERY SYSTEMS (WALKABOUT 2 OXYGEN SYSTEM MISC) by [facility].(Non- Drug; Combo Route) route. ??? Calcium Carbonate-Vitamin D3 (CALCIUM 500 + D) 500 mg(1,250mg) -400 unit Chew Take by mouth 2 times daily. ??? insulin glargine (LANTUS SOLOSTAR) 100 unit/mL (3 mL) pen injection Inject 34 Units subcutaneously nightly. ??? lisinopril (PRINIVIL;ZESTRIL) 40 mg tablet Take 40 mg by mouth daily. ??? insulin glulisine (APIDRA SOLOSTAR) 100 unit/mL pen injection Inject 6-10 Units subcutaneously 2times daily (before meals). 15 mL 12 ??? atorvastatin (LIPITOR) 40 mg tablet Take [...] foam ??? sitaGLIPtin (JANUVIA) 100 mg tablet SOCIAL HISTORY: I personally reviewed this patient's tobacco history from today, 08/26/2013. Vitals 08/26/13 Weight - Scale ! 141.1 [...] signs are normal. She is cooperative. Obese HENT: Head: Normocephalic and atraumatic. Right Ear: External ear normal. Left Ear: External ear normal. Mouth/Throat: Oropharynx is clear and moist. Eyes: Conjunctivae and EOM are normal. Pupils are equal, round, and reactive to light. No scleral icterus. Neck: Normal range of motion. Cardiovascular: Normal rate, regular rhythm and normal heart sounds. No murmur heard. Pulmonary/Chest: Effort normal. She has decreased breath sounds in the left upper field, the left middle field and the left lower field. She has no wheezes. She has no rhonchi. She has no rales. Abdominal: Soft. Bowel sounds are normal. She exhibits no mass. There is no hepatosplenomegaly. No tenderness. Musculoskeletal: Normal range of motion. She exhibits no edema. Lymphadenopathy: She has no cervical adenopathy. Neurological: She is alert and oriented to person, place, and time. She has normal reflexes. No cranial nerve deficit. Skin: Skin is warm and dry. No rash noted. LABORATORY EVALUATION: I personally reviewed this patient's laboratory studies from today, 08/26/2013.The patient has no clinically significant hematologic, hepatic or renal function abnormalities. These results were reviewed and shared with the patient. Recent Results (from the past 24 hour(s)) CBC (WITH DIFF) Component Value Range WBC 8.0 4.0 - 10.0 x10(3)/mcL RBC 4.03 3.93 - 5.22 x10(6)/mcL Hemoglobin 11.5 11.2 - 15.7 gm/dL Hematocrit 37.0 34.0 - 45.0 % MCV 91.8 79.0 - 94.0 fL MCH 28.5 26.6 - 32.2 pg MCHC 31.1 (*) 32.0 - 36.5 gm/dL Platelets 253 145 - 370 x10(3)/mcL RDWSD 51.6 (*) 35.0 - 46.0 fL RDWCV 15.3 (*) 10.9 - 14.4 % MPV 10.5 9.0 - 12.0 fL COMPREHENSIVE METABOLIC PANEL (NON-FASTING) Component Value Range Glucose Lvl 205 (*) 60 - 199 mg/dL BUN 22 (*) 8 - 18 mg/dL Creatinine 1.20 0.70 - 1.20 mg/dL Sodium 137 135 - 145 mmol/L Potassium 4.3 3.5 - 5.0 mmol/L Chloride 99 98 - 107 mmol/L CO2 27 22 - 31 mmol/L Anion Gap 11 5 - 15 mmol/L Calcium 9.3 8.5 - 10.5 mg/dL Total Protein 7.1 6.4 - 8.3 gm/dL Albumin 4.1 3.2 - 5.2 gm/dL AST 11 0 - 30 unit/L ALT 12 0 - 30 unit/L Alk Phos 96 40 - 104 unit/L Total Bilirubin 0.2 0.2 - 1.3 mg/dL Bili, Direct 0.1 0.0 - 0.3 mg/dL Estimated GFR 45 (*) >=60 LACTATE DEHYDROGENASE Component Value Range LDH 186 110 - 220 unit/L DIFFERENTIAL, AUTOMATED Component Value Range Neutrophils % 74.5 (*) 34.0 - 71.0 % Neutr Abs (ANC) 5.93 1.50 - 6.30 x10(3)/mcL Lymphocytes % 18.8 (*) 19.0 - 53.0 % Lymphocytes Abs 1.5 1.0 - 3.6 x10(3)/mcL Monocytes % 4.5 4.0 - 13.0 % Monocyte Abs 0.4 0.2 - 1.0 x10(3)/mcL Eosinophils % 1.3 0.0 - 7.0 % Eosinophils Abs 0.1 0.0 - 0.5 x10(3)/mcL Basophils % 0.5 0.0 - 2.0 % Basophils Abs 0.0 0.0 - 0.2 x10(3)/mcL Immature Gran % 0.40 0.00 - 0.66 % Shanae Gran Abs 0.03 0.00 - 0.05 x10(3)/mcL RADIOGRAPHIC EVALUATION: I personally reviewed this patient's radiographic studies from today, 08/26/2013 in comparison to their last and baseline evaluation radiographic studies. These results were reviewed with our radiologists and the images, reports and results shared with the patient. She has no evidence of recurrent, progressive or new metastatic disease. She has postoperative changes with a leftpneumonectomy. Assessment and Plan: ASSESSMENT: Patient with resected stage IIIA ([id number]) non-small cell lung cancer in 2004 status post adjuvant chemotherapy and sequential postoperative radiation therapy following her left pneumonectomy. She now is over 5 years without evidence of recurrent disease. She is very please with her progress.This patient requested to return again I in a year for follow-up. PLAN: Patient to return in one year for clinical, laboratory and radiographic reevaluation to include a chest radiograph. She is to follow-up with her primary care provider. documented in this encounter Plan of Treatment Upcoming Encounters Date Type Specialty Care Team Description 04/04/2022 Office Visit Dermatology Celena Salazar MD [facility] ER DR THERESE LEOS-DERMAT [place], [place] [address] (Wo rk) documented as of this encounter Procedures Procedure Name Priority Date/Time Associated Comments Diagnosis DIFFERENTIAL, STAT 08/26/2013 1:14 PM Results for this AUTOMATED EDT procedure are i n the results section. CBC (WITH DIFF) STAT 08/26/2013 1:14 PM Malignant neoplasm Results for this EDT of bronchus and procedure ar e in lung, unspecified the result s site section. LACTATE DEHYDROGENASE STAT 08/26/2013 1:14 PM Malignant johanna plasm Results for this EDT of bronchus and procedure ar e in lung, unspecified the result s site section. COMPREHENSIVE STAT 08/26/2013 1:14 PM Malignant neoplasm Re sults for this METABOLIC PANEL EDT of bronchus and procedure are in (NON-FASTING) lung, unspecified the resul ts site section. documented in this encounter Results (ABNORMAL) Differential, Automated (08/26/2013 1:14 PM EDT) [facility] gist Method Time Signature Neutrophils % 74.5 (H) 34.0 - CERNER 71.0 % MILLENNIUM Neutr Abs (ANC) 5.93 1.50 - CERNER 6.30 MILLENNIUM x10(3)/mc L Lymphocytes % 18.8 (L) 19.0 - CERNER 53.0 % MILLENNIUM Lymphocytes Abs 1.5 1.0 - 3.6 CERNER x10(3)/mc MILLENNIUM L Monocytes % 4.5 4.0 - CERNER 13.0 % MILLENNIUM Monocyte Abs 0.4 0.2 - 1.0 CERNER x10(3)/mc MILLENNIUM L Eosinophils % 1.3 0.0 - 7.0 CERNER % MILLENNIUM Eosinophils Abs 0.1 0.0 - 0.5 CERNER x10(3)/mc MILLENNIUM L Basophils % 0.5 0.0 - 2.0 CERNER % MILLENNIUM Basophils Abs 0.0 0.0 - 0.2 CERNER x10(3)/mc MILLENNIUM L Immature Gran % 0.40 0.00 - CERNER 0.66 % MILLENNIUM Comment: Immature granulocytes(IG's)percentage an d absolute count will include metamyelocytes, myelocytes, and promyelo cytes. Blood smears from CBCs yielding IG's will be scanned manually for concor dance. If this scan disagrees with the automated IG or if promyelocytes are not ed, a manual differential will be performed. Shanae Gran Abs 0.03 0.00 - 0.05 x10(3)/mcL CER NER MILLENNIUM Specimen Anatomical Collection Method Collection Time Receive d Time (Source) Location / / Volume Laterality Blood specimen 08/26/2013 1:14 PM 014 1:19 (specimen) EDT PM EDT Ochoa Harrell MD HEMATOLOGY ORDERABLES Performing Organization Address City/State/ZIP Code Phon e Number [address] [facility] MILLENNIUM Lactate Dehydrogenase (08/26/2013 1:14 PM EDT) athologist Signature LDH 186 110 - 220 CERNER unit/L MILLENNIUM Specimen Anatomical Collection Method Collection Time Receive d Time (Source) Location / / Volume Laterality Blood specimen 08/26/2013 1:14 PM 014 1:19 (specimen) EDT PM EDT Resulting Agency Comment Spec In Lab Ochoa Harrell MD CHEMISTRY ORDERABLES Performing Organization Address City/[facility]/ZIP [facility] Phon e Number [address] CERNER MILLENNIUM (ABNORMAL) Comprehensive metabolic panel (non-fasting) (08/26/2013 1:14 PM EDT) athologist Signature Glucose Lvl 205 (H) 60 - 199 CERNER mg/dL MILLENNIUM Comment: Diabetes: >=200 mg/dL plus symp toms BUN 22 (H) 8 - 18 mg/dL CERNER MILLENNIUM Creatinine 1.20 0.70 - 1.20 mg/dL CERNER MILL ENNIUM Comment: Please note that the pediatric reference intervals supplied above were not validated at [facility]. Results from pediatri c patients should be interpreted in conjunction to the patient's age, height and muscle mass. Sodium 137 135 - 145 mmol/L CERNER BELLA NIUM [...] 31 mmol/L CERNER MILLENNI UM Anion Gap 11 5 - 15 mmol/L CERNER MILLENNIU M Calcium 9.3 8.5 - 10.5 mg/dL CERNER BELLA NIUM Total Protein 7.1 6.4 - 8.3 gm/dL CERNER MIL LENNIUM Albumin 4.1 3.2 - 5.2 gm/dL CERNER MILLENN IUM AST 11 0 - 30 unit/L CERNER MILLENNIU M ALT 12 0 - 30 unit/L CERNER MILLENNIU M Alk Phos 96 40 - 104 unit/L CERNER MILLENN IUM [...] Location / / Volume Laterality Blood specimen 08/26/2013 1:14 PM 014 1:19 (specimen) EDT PM EDT Resulting Agency Comment Spec In Lab Ochoa Harrell MD CHEMISTRY ORDERABLES Performing Organization Address City/[facility]/[place] [address] CERNER MILLENNIUM (ABNORMAL) CBC (with Diff) (08/26/2013 1:14 PM EDT) athologist Signature WBC 8.0 4.0 - 10.0 CERNER x10(3)/mcL MILLENNIUM RBC 4.03 3.93 - CERNER 5.22 MILLENNIUM x10(6)/mcL Hemoglobin 11.5 11.2 - CERNER 15.7 gm/dL MILLENNIUM Hematocrit 37.0 34.0 - CERNER 45.0 % MILLENNIUM MCV 91.8 79.0 - CERNER 94.0 fL MILLENNIUM MCH 28.5 26.6 - CERNER 32.2 pg MILLENNIUM MCHC 31.1 (L) 32.0 - CERNER 36.5 gm/dL MILLENNIUM Platelets 253 145 - 370 CERNER x10(3)/mcL MILLENNIUM RDWSD 51.6 (H) 35.0 - CERNER 46.0 fL MILLENNIUM RDWCV 15.3 (H) 10.9 - CERNER 14.4 % MILLENNIUM MPV 10.5 9.0 - 12.0 CERNER fL MILLENNIUM Specimen Anatomical Collection Method Collection Time Receive d Time (Source) Location / / Volume Laterality Blood specimen 08/26/2013 1:14 PM 014 1:19 (specimen) EDT PM EDT Resulting Agency Comment Spec In Lab Ochoa Harrell MD HEMATOLOGY ORDERABLES Performing Organization Address City/[facility]/[place] [address] CERNER MILLENNIUM documented in this encounter Visit Diagnoses Diagnosis Malignant neoplasm of bronchus and lung, unspecified site Non-small cell lung cancer, left documented in this encounter Care Teams Director Of Land Acquisition Relationship Specialty Start Date End Date Gerry Hackett MD PCP - General 03/14/10 06/18/17 [address] [place] [address] documented as of this encounter
--- OUTSIDE RECORDS SUMMARY | 2022-02-02 00:32 | XMS_ITS | Encounter Summary ---
:1950 Author Organization [facility] Address [facility] [place] [address] Care Team Providers Name Role Phone Gerry Hackett MD Primary Care Provider [phone] Reason for Visit Reason Comments Cataract 1 yr f/u Cataracts, bilatera l Encounter Details Date Type Department Care Team Description 11/12/2014 Follow-Up Ophthalmology at [facility] C Vincent Lawler, Age-related nuclear cataract of both eyes; [facility] Martha galan MD IDDM (insulin dependent diabetes mellitu s); [place] [address] [facility] Myopia with presbyopia, juan carter [phone] DR OPHTHALMOLOGY DEPT. [place], [place] [address] Social History Tobacco Use Types Packs/Day Years Used Date Former Smoker Quit: 04/04/19 99 Smokeless Tobacco: Never Used Alcohol Use Standard Drinks/Week Comments No 0 (1 standard drink = 0.6 oz pure alcoho l) Sex Assigned at Date Recorded Not on file documented as of this encounter Progress Notes Vincent Lawler MD - 11/12/2014 3:32 PM EDT Assessment/Plan: Pennie Rodriguez is a 64 y.o. female with the following ophthalmic issues: 1. Cataracts OU, visually significant 2. IDDM, no retinopathy 3. Myopia/presbyopia Discussed cataract surgery, process, recovery, Risks/Benefits/Alternatives, and the option of waiting. AAO cataract surgery pamphlet given to patient. Reviewed the chance of WORSE vision, damage to theeye, need for further treatment or surgery, possible need for strong glasses, imbalance between eyes, other problems possible. Lens options and refractive targets reviewed. Questions answered. Pennie Rodriguez expresses understanding, requests cataract surgery OU, OS first. Discussed option of presbyopic IOL to try to minimize need for glasses (not [place] [facility], but available elsewhere). Pennie Rodriguez declines presbyopic IOL and requests single vision IOL. Amount of astigmatism mild: no toric IOL anticipated Dominant eye: OD Refractive target: distance documented in this encounter Plan of Treatment Upcoming Encounters Date Type Specialty Care Team Description 04/04/2022 Office Visit Dermatology Celena Salazar MD [facility] ER DR THERESE LEOS[place], [place] [address] (Wo rk) documented as of this encounter Procedures Procedure Name Priority Date/Time Associated Diagnosis Comme nts CATARACT EXTRACTION, Routine 11/12/2014 3:34 PM EDT Age-relate d nuclear EXTRACAPSULAR, W/ LENS cataract of both e yes INSERTION documented in this encounter Results [id number] CALC BY LASER [id number] EYES (01/14/2015 4:05 PM EDT) Anatomical Region Laterality Modality Other Specimen (Source) Anatomical Location Collection Method / Collectio n Time Received Time / Laterality Volume Narrative 01/14/2015 4:06 PM EDT POM reviewed. IOLMaster: ??good quality scans K's: ?? 0.62 D cyl OD, 0.88 D cyl OS See paper POM form for IOL calculations. Avg IOL-M K's ?? OD ?? 42.03 @ 179 / 42. 51 @ 089>>>>>> ?O S ?? 42.51 @ 166 / 43.05 @ 076>>>>>> Target ?? OD ??-0.25 ?OS ??-0.25>>>>>> HWTW ?? OD 12.0 ? OS 11.8>>>>>> ACD ? OD 3.47 ? OS 3.62>>>>>> Axial Length ?? OD ??24.86 ??IOL-M ? OS ??24.81 Vincent Lawler MD OPHTHALMOLOGY SERVICES ORDER GALLITO documented in this encounter Visit Diagnoses Diagnosis Age-related nuclear cataract of both eye s Senile nuclear sclerosis IDDM (insulin dependent diabetes mellitu s) Type II or unspecified type diabetes татьяна litus without mention of complication, not stated as uncontrolled Myopia with presbyopia, bilateral Age-related nuclear cataract of both eye s Senile nuclear sclerosis documented in this encounter Care Teams Field Crops Harvest Machine Operator Relationship Specialty Start Date End Date Gerry Hackett MD PCP - General 03/14/10 06/18/[address] [place] [address] documented as of this encounter
--- OUTSIDE RECORDS SUMMARY | 2022-02-02 00:32 | XMS_ITS | Encounter Summary ---
:1950 Author Organization [facility] [address] Care Team Providers Name Role Phone Gerry Hackett MD Primary Care Provider [phone] Reason for Visit Reason Comments Procedure Here for POM, anticipating C E Encounter Details Date Type Department Care Team Description 01/13/2015 Clinical Support Ophthalmology at [facility], Age-related nuclear [facility] [place] [address] Social History Tobacco Use Types Packs/Day [...] MD [facility] ER DR THERESE LEOS-DERMAT [place], [place] [address] (Wo rk) documented as of this encounter Procedures Procedure Name Priority Date/Time Associated Comments Diagnosis [id number] CALC Routine 01/14/2015 4:05 PM Age-related Results for this BY LASER INTERFEROMETRY EDT nuclear cataract procedure are in - OU - BOTH EYES of both eyes the results section. documented in this encounter Results [id number] CALC BY LASER [id number] EYES (01/14/2015 4:05 PM EDT) Anatomical Region [...] sclerosis documented in this encounter Care Teams Frame Aligner Relationship Specialty Start Date End Date Gerry Hackett MD PCP - General 03/14/10 06/18/[address] [place] [address] documented as of this encounter
--- OUTSIDE RECORDS SUMMARY | 2022-02-02 00:32 | XMS_ITS | Encounter Summary ---
:1950 Author Organization [facility] [place] [address] Care Team Providers Name Role Phone Gerry Hackett MD Primary Care Provider [phone] Reason for Visit Reason Comments Post Op 1 mon CE/IOL,OD Encounter Details Date Type Department Care Team Description 04/20/2015 Office Visit Ophthalmology [facility] Vincent Lawler, S/P cataract extraction and insertion of intraocular lens, right; [facility] Pseudophakia of both eyes (OD - 03/15/15 , OS - 02/15/15) [place] [address] CENTER [phone] OPHTHALMOLOGY DEPT. [place], [place] [address] Social History Tobacco Use Types Packs/Day Years Used Date Former Smoker Quit: 04/04/19 99 Smokeless Tobacco: Never Used Alcohol Use Standard Drinks/Week Comments No 0 (1 standard drink = 0.6 oz pure alcoho l) Sex Assigned at Date Recorded Not on file documented as of this encounter Progress Notes Vincent Lawler MD - 04/20/2015 1:04 PM EST Assessment/Plan: 1. 1 month s/p CE/IOL OD Doing well with normal post-op appearance, off drops 2. 2 month s/p CE/IOL OS Doing well off drops with a normal post operative appearance. 3. IDDM - discussed good DM control, yearly DFE with local eye doctor OTC readers prn. Counselled re safety and possible PCO in future. Follow up: With Dr. Warner (replacing Feltus) in 4 months. Patient to call for appointment documented in this encounter Plan of Treatment Upcoming Encounters Date Type Specialty Care Team Description 04/04/2022 Office Visit Dermatology Celena Salazar MD [facility] ER DR THERESE LEOS[place]DERMAT [place], [place] [address] (Wo rk) documented as of this encounter Visit Diagnoses Diagnosis S/P cataract extraction and insertion of intraocular lens, right Pseudophakia of both eyes (OD - 03/15/15 , OS - 02/15/15) Lens replaced by other means documented in this encounter Care Teams Tool Die Maker Relationship Specialty Start Date End Date Gerry Hackett MD PCP - General 03/14/10 06/18/[address] [place] [address] documented as of this encounter
--- OUTSIDE RECORDS SUMMARY | 2022-02-02 00:32 | XMS_ITS | Encounter Summary ---
:1950 Author Organization [facility] Address [address] [place] [address] Care Team Providers Name Role Phone Gerry Hackett MD Primary Care Provider [phone] Reason for Visit Reason Comments Diabetes Encounter Details Date Type Department Care Team Description 02/17/2014 Office Visit Endocrinology at [facility] Diane Lewis, Type II or [facility] TIRE BUSTER unspecified type Drive [facility] [place] [address] without mention of [phone] ENDOCRINOLOGY complication, not DEPT. stated as [place], [place] [address] uncontrolled (Primary [phone] Dx) (Work) Social History Tobacco Use Types Packs/Day Years Used Date Former Smoker Quit: 04/04/19 99 Smokeless Tobacco: Never Used Alcohol Use Standard Drinks/Week Comments No 0 (1 standard drink = 0.6 oz pure alcoho l) Sex Assigned at Date Recorded Not on file documented as of this encounter Last Filed Vital Signs Vital Sign Reading Time Taken Comments Blood Pressure 129/76 02/17/2014 1:06 PM EDT Pulse 91 02/17/2014 1:06 PM EDT Temperature - - Respiratory Rate - - Oxygen Saturation - - Inhaled Oxygen Concentration - - Weight 141.8 kg (312 lb 9.6 oz) 02/17/2014 1:06 PM EDT Height 165 cm (5' 4.96) 02/17/2014 1:06 PM EDT Body Mass Index 52.08 02/17/2014 1:06 PM EDT documented in this encounter Patient Instructions Patient InstructionsDiane Serra, TIRE BUSTER - 02/17/2014 1:27 PM EDT Resume metformin XR Start 500mg Take 1 before evening meal and in 1 week, if no side effect, then add 1 in AM before breakfast and slowly build up to 2 before breakfast and evening meals Given information about victoza documented in this encounter Progress Notes Diane Serra APRN - 02/17/2014 2:20 PM EDT DATE OF VISIT: 02/17/2014. REASON FOR VISIT: Followup type 2 DM, now in poor control. Also, hyperlipidemia at goal, hypertension at goal, morbid obesity. BRIEF HISTORY: Presents and discusses some high stress she has had since previous office visit. States her son stopped taking his medications for schizophrenia and she has a granddaughter that was born recently that she has not been allowed to see. DATE OF DIAGNOSIS OF DIABETES: 06/2003. PREVENTION STRATEGIES: Up-to-date. DIABETES REGIMEN: Lantus SoloSTAR Pen 34 units in p.m., sitagliptin, glimepiride. She does not take Apidra before meals. REVIEW OF SYSTEMS: Depression and Mood: Discusses some high stress, has counseling. States she has been advised to consider long-term planning for her son who lives with her. Eyes: No recent vision changes. No recent headaches or chest pain. She does have shortness of breath. History of small lung cancer, had left lobe removed. No recent GI symptoms. She states she does have loose stools, but it is not diarrhea. Sleep pattern has been okay. Extremities: She has some joint pains. PHYSICAL EXAMINATION: Appearance: She is obese with a large central girth. Weight 312 pounds. Blood pressure 129/76. Eyes: No retinopathy with green light exam. Neck: No thyromegaly or lymphadenopathy. Heart: Regular rate and rhythm. No murmurs. Right lung sounds are clear. Feet: Skin is normal. Pulses are normal. Neuro: Normal sensation to 10 g of pressure. Hemoglobin A1c 9.3%, previous was 8.2%. SBGM: One time a day. She agrees to try to change the time of day that she checks, check one week in the morning before breakfast and check the next week in the evening before evening meal. IMPRESSION AND PLAN: Diabetes mellitus type 2 in poor control. The patient states she would like to resume using metformin. She states she stopped it in the past because of diarrhea, but she states her bowels are about the same. Will add metformin XR 500 mg start one before evening meal then in a week or two add one before breakfast and slowly build up to two before breakfast and two before evening meal. Gave the patient copy of her lab results and reviewed them with her. Blood pressure is at goal. 24-hour meal plan was reviewed. She states she knows she is a stress eater and she is going to try to eat smaller portions and eat more vegetables and fruits. Physical activity not much related to shortness of breath. She ambulates with assistance of a wheeled walker. This was a 32-minute office visit with 31 minutes spent counseling [id number] with patient in the management of glucose levels, adding metformin XR to her regimen. Gave her information on Victoza. Will consider trying Victoza at next office visit if hemoglobin A1c is not closer to 7.5%. She did have a flu vaccine this fall. In May, will check CMP, hemoglobin A1c, microalbumin, and vitamin B12. Also, reminded her to take vitamin D during the winter months. Recent Results (from the past 72 hour(s)) HEMOGLOBIN A1C Component Value Range Hemoglobin A1C 9.3 (*) <=5.6 % Est Avg Gluc 220 HDL/CHOL PROFILE Component Value Range Chol, Total 168 <=199 mg/dL HDL 53 >=40 mg/dL Chol/HDL Ratio 3.2 LDL CHOLESTEROL, DIRECT Component Value Range LDL Chol Direct 94 <=99 mg/dL TSH Component Value Range TSH 2.58 0.27 - 4.20 mcIU/mL CREATININE Component Value Range Creatinine 1.15 0.70 - 1.20 mg/dL Estimated GFR 47 (*) >=60 documented in this encounter Plan of Treatment Upcoming Encounters Date Type Specialty Care Team Description 04/04/2022 Office Visit Dermatology Celena Salazar MD [facility] [address] [facility] [place], [place] [address] (Wo rk) documented as of this encounter Procedures Procedure Name Priority Date/Time Associated Diagnosis Comme nts CREATININE Routine 02/17/2014 12:00 Type II or Results for this PM EDT unspecified type procedure a re in diabetes mellitus the result s without mention of section. complication, not stated as uncontrolled TSH Routine 02/17/2014 12:00 Type II or Results for this PM EDT unspecified type procedure a re in diabetes mellitus the result s without mention of section. complication, not stated as uncontrolled LDL CHOLESTEROL, Routine 02/17/2014 12:00 Type II or Results for this DIRECT PM EDT unspecified type procedure a re in diabetes mellitus the result s without mention of section. complication, not stated as uncontrolled HDL/CHOL PROFILE Routine 02/17/2014 12:00 Type II or Results for this PM EDT unspecified type procedure a re in diabetes mellitus the result s without mention of section. complication, not stated as uncontrolled HEMOGLOBIN A1C Routine 02/17/2014 12:00 Type II or Results f or this PM EDT unspecified type procedure a re in diabetes mellitus the result s without mention of section. complication, not stated as uncontrolled documented in this encounter Results Microalbumin, urine, random (06/21/2014 4:23 PM EST) P athologist Signature U Creatinine 224 mg/dL CERNER MILLENNIUM U Albumin Conc, 16.0 mg/L CERNER Random MILLENNIUM Alb/Cr Ratio, 7 mcg/mg Cr CERNER Random MILLENNIUM Comment: Reference Range* Random collection (mcg/mg creatinine) Normal ?<30 Microalbuminuria ?? 30 - 300 Clinical Albuminuria ?? >300 *[place] Diabetes Association. Diabetic Nephropathy. Diabetes Care 1997;(Suppl [...] Cee MD URINE ORDERABLES Performing Organization Address City/State/ZIP Code Phon e Number [place]ER[place] [address] [facility] (ABNORMAL) Vitamin B12 (06/21/2014 3:39 PM EST) Analysis Performed At [facility] Signature Vitamin B-12 1,596 (H) 207 - 974 CERNER pg/mL [facility] Specimen Anatomical Collection Method Collection Time Receive d Time (Source) Location / / Volume Laterality Blood specimen 06/21/2014 3:39 PM 015 3:43 (specimen) EST PM EST Resulting Agency Comment Spec In Lab Pratik Cee MD CHEMISTRY ORDERABLES Performing Organization Address City/State/ZIP Code Phon e Number [place] [address] [facility] (ABNORMAL) Hemoglobin A1c (06/21/2014 3:39 PM EST) Analysis Performed At [facility] Hemoglobin A1C 8.5 (H) 4.3 - 5.6 CERNER % [facility] Comment: Reference Range: 4.3 - 5.6% 5.7 [...] Mellitus, Diabetes Care 2013; 36: Suppl. 1, U79-75 Est Avg Gluc 197 mg/dL [facility] Comment: eAG equivalents for HbA1c percentages: HbA1c(%) ?eAG(mg/dL) 6.0 ?126 6.5 ?140 7.0 ?154 7.5 ?169 8.0 ?183 8.5 ?197 9.0 ?212 9.5 ?226 10.0 ? 240 Limitations: The eAG calculation has not been validated on women, individuals below 18 years old and above 70 years old, and individuals with hemoglobinopathies. Additional resources are available on [facility] website: [email or web address]://Actifi/[facility] OKEMAHadacalc Chevy PARTIDA, Jr Spencer, Syed R, et al. ??Tr anslating the A1C assay into estimated average glucose values. ??Diabetes Care 2008:31(8):2748-4018. Specimen Anatomical Collection Method Collection Time Receive d Time (Source) Location / / Volume Laterality Blood specimen 06/21/2014 3:39 PM 015 3:43 (specimen) EST PM EST Resulting Agency Comment Spec In Lab Pratik Cee MD CHEMISTRY ORDERABLES Performing Organization Address City/State/[place] [id number] CERNER MILLENNIUM (ABNORMAL) Comprehensive metabolic panel (non-fasting) (06/21/2014 3:39 PM EST) athologist Signature Glucose Lvl 144 60 - 199 CERNER mg/dL MILLENNIUM Comment: Diabetes: >=200 mg/dL plus symp toms BUN 21 (H) 8 - 18 mg/dL CERNER MILLENNIUM Creatinine 1.14 0.70 - 1.20 mg/dL CERNER MILL ENNIUM Comment: Please note that the pediatric reference intervals supplied above were not validated at [facility]. Results from pediatri c patients should be [...] CERNER M ILLENNIUM Comment: rechecked by laurie Matthew, Direct <0.1 0.0 - 0.3 mg/dL CERNER [...] the following links into your internet browser. [email or web address] [email or web address] Specimen Anatomical Collection Method Collection Time Receive d Time (Source) Location / / Volume Laterality Blood specimen 06/21/2014 3:39 PM 015 3:43 (specimen) EST PM EST Resulting Agency Comment Spec In Lab Pratik Cee MD CHEMISTRY ORDERABLES Performing Organization Address City/State/[place] [address] CERNER MILLENNIUM (ABNORMAL) Creatinine (02/17/2014 12:00 PM EDT) athologist Signature Creatinine 1.15 0.70 - 1.20 CERNER mg/dL MILLENNIUM Comment: Please note that the pediatric reference intervals supplied above were not validated at [facility]. Results from pediatri c patients should be interpreted in conjunction to the patient's age, height and muscle mass. Estimated GFR 47 (L) >=60 JACINTO SHERIDANCORYSHAWANDA Mello Comment: This estimated GFR (eGFR) value was [...] the following links into your internet browser. [email or web address] [email or web address]/[facility] OKEMAHnkf Specimen Anatomical Collection Method Collection Time Receive d Time (Source) Location / / Volume Laterality Blood specimen 02/17/2014 12:00 4 (specimen) PM EDT 12:12 PM EDT Resulting Agency Comment Spec In Lab Pratik Cee MD CHEMISTRY ORDERABLES Performing Organization Address City/State/ZIP Code Phon e Number [address] [facility] TSH (02/17/2014 12:00 PM EDT) athologist Signature TSH 2.58 0.27 - 4.20 CERNER mcIU/mL [facility] Specimen Anatomical Collection Method Collection Time Receive d Time (Source) Location / / Volume Laterality Blood specimen 02/17/2014 12:00 4 (specimen) PM EDT 12:12 PM EDT Resulting Agency Comment Spec In Lab Pratik Cee MD CHEMISTRY ORDERABLES Performing Organization Address City/[facility]/ZIP [facility] [place] Phon e Number [address] [facility] LDL Cholesterol, Direct (02/17/2014 12:00 PM EDT) athologist Signature LDL Chol 94 <=99 mg/dL CERNER Direct MILLENNIUM Comment: The National Cholesterol Education Progr am (NCEP) has set the following guidelines for LDL Cholesterol: Reference range: ?? Optimal: ?<100 mg/dL ?? Near Optimal/Above Optimal: ?? 100-1 29 mg/dL ?? Borderline high: ?130-159 mg/dL ?? High: ? 160-189 mg/dL ?? Very high: ?>rc=141 mg/dL ARIADNE 2001: 285(19):5843-3536 Specimen Anatomical Collection Method Collection Time Receive d Time (Source) Location / / Volume Laterality Blood specimen 02/17/2014 12:00 4 (specimen) PM EDT 12:12 PM EDT Resulting Agency Comment Spec In Lab Pratik Cee MD CHEMISTRY ORDERABLES Performing Organization Address City/State/ZIP Code Phon e Number [place] [id number] CERROMY MILLENNIUM HDL/Cholesterol Profile (02/17/2014 12:00 PM EDT) P athologist Signature Chol, Total 168 <=199 mg/dL CERNER MILLENNIUM Comment: Recommendations of the NCEP Adult Treatm ent Panel for the following risk cutoff thresholds for the [place] populatio n: Desirable: <200 mg/dL Borderline High: 200-239 mg/dL High: > or = 240 mg/dL HDL 53 >=40 mg/dL CERNER MILLENNIUM Comment: Reference range: ??Low HDL: ?? < 40 mg/dL ??Normal: ?40-60 mg/dL ??Desirable: > 60 mg/dL ARIADNE 2001; 285(19):5018-9326 Chol/HDL Ratio 3.2 ratio CERNER MILLENNI UM Comment: A Cholesterol to HDL ratio below 4:1 is desirable. ??Studies suggest that increased CAD risk occurs at ratios abov e 5 for females and above 6 for men. ? [place] Heart Association ??(htt p://www.americanheart.org) ? Kathryn Int Med, 1994; 121:641 ? AM J Med, 1998; 105(1A):48S Specimen Anatomical Collection Method Collection Time Receive d Time (Source) Location / / Volume Laterality Blood specimen 02/17/2014 12:00 4 (specimen) PM EDT 12:12 PM EDT Resulting Agency Comment Spec In Lab Pratik Cee MD CHEMISTRY ORDERABLES Performing Organization Address City/State/[place] [address] [facility] (ABNORMAL) Hemoglobin A1c (02/17/2014 12:00 PM EDT) Analysis Performed At Patho logist Time Signature Hemoglobin A1C 9.3 (H) <=5.6 % [facility] Comment: Reference Range: 4.3 - 5.6% 5.7 [...] 36: Suppl. 1, S67-74 Est Avg Gluc 220 mg/dL [facility] Comment: eAG equivalents for HbA1c percentages: HbA1c(%) ?eAG(mg/dL) 6.0 ?126 6.5 ?140 7.0 ?154 7.5 ?169 8.0 ?183 8.5 ?197 9.0 ?212 9.5 ?226 10.0 ? 240 Limitations: The eAG calculation has not been validated on women, individuals below 18 years old and above 70 years old, and individuals with hemoglobinopathies. Additional resources are available on [facility] website: http://Actifi/[facility] OKEMAHadacalc Chevy PARTIDA, Jr J, Syed R, et al. ??Tr anslating the A1C assay into estimated average glucose values. ??Diabetes Care 2008:31(8):2615-9482. Specimen Anatomical Collection Method Collection Time Receive d Time (Source) Location / / Volume Laterality Blood specimen 02/17/2014 12:00 4 (specimen) PM EDT 12:12 PM EDT Resulting Agency Comment Spec In Lab Pratik Cee MD CHEMISTRY ORDERABLES Performing Organization Address City/State/[place] [address] [address] [facility] documented in this encounter Visit Diagnoses Diagnosis Type II or unspecified type diabetes татьяна litus without mention of complication, not stated as uncontrolled - Primary documented in this encounter Care Teams Substation Maintenance Technician Relationship Specialty Start Date End Date Gerry Hackett MD PCP - General 03/14/10 06/18/[address] [place] [address] documented as of this encounter
--- OUTSIDE RECORDS SUMMARY | 2022-02-02 00:33 | XMS_ITS | Encounter Summary ---
:1950 Author Organization [facility] Address [facility] [place] [address] Care Team Providers Name Role Phone Gerry Hackett MD Primary Care Provider [phone] Reason for Visit Reason Comments Follow-up Lung Cancer Encounter Details Date Type Department Care Team Description 08/21/2011 Follow-Up Hematology and Ochoa Harrell MD Squamous cell carcinoma of lung, left; Oncology at [facility] Non-small cell lung cancer [facility] [place] HEMATOLOGY/[place] [address] [address]PT. [phone] [place] [id number] (Wo rk) Social History Tobacco Use Types Packs/Day Years Used Date Former Smoker Quit: 04/04/19 99 Comments: stopped 14 years ago Alcohol Use Standard Drinks/Week Comments Not Asked 0 (1 standard drink = 0.6 oz pure alcoho l) Sex Assigned at Date Recorded Not on file documented as of this encounter Last Filed Vital Signs Vital Sign Reading Time Taken Comments Blood Pressure 131/66 08/21/2011 2:38 PM EDT Pulse 88 08/21/2011 2:38 PM EDT Temperature 37 ??C (98.6 ??F) 08/21/2011 2:38 PM EDT Respiratory Rate - - Oxygen Saturation 98% 08/21/2011 2:38 PM EDT Inhaled Oxygen Concentration - - Weight 147 kg (324 lb) 08/21/2011 2:38 PM EDT Height 167 cm (5' 5.75) 08/21/2011 2:38 PM EDT Body Mass Index 52.7 08/21/2011 2:38 PM EDT documented in this encounter Progress Notes Ochoa Harrell MD - 08/21/2011 2:50 PM EDT Subjective: Patient ID: Pennie Rodriguez is a 60 y.o. female with resected stage IIIA ([id number]) non-small cell lungcancer in March of 2004. [...] Cardiovascular: Negative. Gastrointestinal: Negative. Genitourinary: Negative. Musculoskeletal: R leg arthritis Skin: Negative. Negative for rash. Neurological: Negative. Hematological: Negative. MEDICATIONS AND ALLERGIES: Please see this patient's medications and allergies from today, 08/21/2011.I personally reviewed this patient's medications and allergies. Current outpatient prescriptions ordered prior to encounter Medication Sig Dispense Refill ??? Calcium 220 mg capsule Take 250 mg by mouth 2 times daily (with meals). ??? atorvastatin (LIPITOR) 40 mg tablet Take 40 mg by mouth daily. ??? ALBUTEROL INHL Inhale into the lungs. ??? fluticasone-salmeterol (ADVAIR) 100-50 mcg/dose diskus inhaler [...] Take 81 mg by mouth daily. ??? albuterol-ipratropium (COMBIVENT) 18-103 mcg/Actuation inhaler ??? omeprazole (PRILOSEC) 20 mg capsule ??? pramoxine (PROCTOFOAM) 1 % foam ??? sitaGLIPtin (JANUVIA) 100 mg tablet ??? Insulin Glargine (LANTUS SOLOSTAR) 100 unit/mL (3 mL) InPn SOCIAL HISTORY: I personally reviewed this patient's tobacco history from today, 08/21/2011. Recent Review Flowsheet Data View Complete Flowsheet Oncology Vitals 08/21/2011 Weight 146.965 kg Height 167 cm BSA (Calculated - sq m) 2.61 BMI (Calculated) 52.8 Temp 98.6 Temp src 1 Pulse 88 Heart Rate Source Left;SaO2 BP 131/66 BP Location Right arm Patient Position Sitting SpO2 98 Pain Level 0 Karnofsky Score 70 Oncology Vitals 08/21/2011 Height (cm) 167 cm Weight (kg) 146.965 kg BSA (m2) 2.61 m2 Objective: Physical Exam Constitutional: She is oriented [...] reviewed this patient's laboratory studies from today, 08/21/2011.The patient has no clinically significant hematologic, hepatic or renal function abnormalities. These results were reviewed and shared with the patient. Recent Results (from the past 24 hour(s)) CBC (WITH DIFF) Component Value Range ??? WBC 8.5 4.0 - 10.0 (x10(3)/mcL) ??? RBC 3.94 3.93 - 5.22 (x10(6)/mcL) ??? Hemoglobin 11.5 11.2 - 15.7 (gm/dL) ??? Hematocrit 35.6 34.0 - 45.0 (%) ??? MCV 90.4 79.0 - 94.0 (fL) ??? MCH 29.2 26.6 - 32.2 (pg) ??? MCHC 32.3 32.0 - 36.5 (gm/dL) ??? Platelets 247 145 - 370 (x10(3)/mcL) ??? RDWSD 48.2 (*) 35.0 - 46.0 (fL) ??? RDWCV 14.6 (*) 10.9 - 14.4 (%) ??? MPV 10.3 9.0 - 12.0 (fL) COMPREHENSIVE METABOLIC PANEL (NON-FASTING) Component Value Range ??? Glucose Lvl 104 60 - 199 (mg/dL) ??? BUN 14 8 - 18 (mg/dL) ??? Creatinine 1.04 0.70 - 1.20 (mg/dL) ??? Sodium 137 135 - 145 (mmol/L) ??? Potassium 3.9 3.5 - 5.0 (mmol/L) ??? Chloride 100 98 - 107 (mmol/L) ??? CO2 30 22 - 31 (mmol/L) ??? Anion Gap 7 5 - 15 (mmol/L) ??? Calcium 9.9 8.5 - 10.5 (mg/dL) ??? Total Protein 7.3 6.4 - 8.3 (gm/dL) ??? Albumin 4.1 3.2 - 5.2 (gm/dL) ??? AST 13 0 - 30 (unit/L) ??? ALT 13 0 - 30 (unit/L) ??? Alk Phos 107 (*) 40 - 104 (unit/L) ??? Total Bilirubin 0.3 0.2 - 1.3 (mg/dL) ??? Bili, Direct 0.1 0.0 - 0.3 (mg/dL) ? ? Estimated GFR 54 (*) >=60 LACTATE DEHYDROGENASE Component Value Range ??? LDH 174 110 - 220 (unit/L) D-DIMER, QUANTITATIVE Component Value Range ??? D-Dimer, Quant 620 (*) 0 - 500 (FEU ng/ml) DIFFERENTIAL, AUTOMATED Component Value Range ??? Neutrophils % 71.9 (*) 34.0 - 71.0 (%) ??? Neutr Abs (ANC) 6.12 1.50 - 6.30 (x10(3)/mcL) ??? Lymphocytes % 20.1 19.0 - 53.0 (%) ??? Lymphocytes Abs 1.7 1.0 - 3.6 (x10(3)/mcL) ??? Monocytes % 5.3 4.0 - 13.0 (%) ??? Monocyte Abs 0.4 0.2 - 1.0 (x10(3)/mcL) ??? Eosinophils % 1.9 0.0 - 7.0 (%) ??? Eosinophils Abs 0.2 0.0 - 0.5 (x10(3)/mcL) ??? Basophils % 0.7 0.0 - 2.0 (%) ??? Basophils Abs 0.1 0.0 - 0.2 (x10(3)/mcL) ??? Immature Gran % 0.10 0.00 - 0.66 (%) ??? Shanae Gran Abs 0.01 0.00 - 0.05 (x10(3)/mcL) RADIOGRAPHIC EVALUATION: I personally reviewed this patient's radiographic studies from today, 08/21/2011 in comparison to their last and baseline evaluation radiographic studies. These results were reviewed with our radiologists and the images, reports and results shared with the patient. She has no evidence of recurrent, progressive or new metastatic disease. She has postoperative changes with a leftpneumonectomy. Assessment and Plan: ASSESSMENT: Patient with resected STAGE IIIA non-small cell lung cancer in 2004 status post adjuvantchemotherapy and sequential postoperative radiation therapy following her left pneumonectomy. She now is over 5 years without evidence of recurrent disease. She met briefly with Dr. Rao her thoracic surgeon today just to say thank you. She is very please with her progress and we revisited the issues related to the of her in the interim from lymphoma. This patient requested to return again I in [...] Celena Salazar MD [facility] [address], [place] [address] (Wo rk) documented as of this encounter Visit Diagnoses Diagnosis Squamous cell carcinoma of lung, left Malignant neoplasm of bronchus and lung, unspecified site Non-small cell lung cancer Malignant neoplasm of bronchus and lung, unspecified site documented in this encounter Care Teams Railcar Brake Operator Relationship Specialty Start Date End Date Gerry Hackett MD PCP - General 03/14/10 06/18/[address] [place] [address] documented as of this encounter
--- OUTSIDE RECORDS SUMMARY | 2022-02-02 00:33 | XMS_ITS | Encounter Summary ---
:1950 Author Organization [facility] Address [facility] [place] [address] Care Team Providers Name Role Phone Gerry Hackett MD Primary Care Provider [phone] Encounter Details Date Type Department Care Team Description 08/21/2011 Hospital Encounter Laboratory CLINIC, DR CONV Malignant neoplasm [facility] Ochoa Harrell MD [facility] HEMATOLOGY/[place] [address] lung, [place] site [address] Social History Tobacco Use Types Packs/Day Years Used Date Former Smoker Quit: 04/04/19 99 Comments: stopped 14 years ago Alcohol Use Standard Drinks/Week Comments Not Asked 0 (1 standard drink = 0.6 oz pure alcoho l) Sex Assigned at Date Recorded Not on file documented as of this encounter Medications at Time of Discharge Medication Sig Dispensed Refills Start Date End Date atorvastatin (LIPITOR) 40 mg Take 40 mg by 0 tablet mouth daily. cyanocobalamin, vitamin B-12, Take 1,000 mcg 0 250 mcg tablet by mouth daily. aspirin 81 mg EC tablet Take 81 mg by 0 mouth daily. pramoxine (PROCTOFOAM) 1 % 0 0 foam Calcium 220 mg capsule Take 250 mg by 0 12/04/2012 mouth daily. fluticasone-salmeterol Inhale 1 puff 0 07/27/2019 (ADVAIR) 100-50 mcg/dose into the lungs diskus inhaler every 12 hours. glimepiride (AMARYL) 4 mg Take 4 mg by 0 01/04/2016 tablet mouth every morning (before breakfast). hydrochlorothiazide Take 12.5 mg by 0 05/19/2018 (HYDRODIURIL) 25 mg tablet mouth daily. albuterol-ipratropium 0 03/07/2010 (COMBIVENT) 18-103 mcg/Actuation inhaler omeprazole (PRILOSEC) 20 mg 0 03/07/20 10 08/06/2017 capsule sitaGLIPtin (JANUVIA) 100 mg 0 010 01/14/2017 tablet Insulin Glargine (LANTUS 0 03/07/2010 12/04/2012 SOLOSTAR) 100 unit/mL (3 mL) InPn documented as of this encounter Plan of Treatment Upcoming Encounters Date Type Specialty Care Team Description 04/04/2022 Office Visit Dermatology Celena Salazar MD [facility] ER [address] THERESE LE[address] [place], [place] [address] (Wo rk) documented as of this encounter Procedures Procedure Name Priority Date/Time Associated Comments Diagnosis DIFFERENTIAL, STAT 08/21/2011 1:05 PM Results for this AUTOMATED EDT procedure are i n the results section. D-DIMER, QUANTITATIVE STAT 08/21/2011 1:05 PM Malignant johanna plasm Results for this EDT of bronchus and procedure ar e in lung, unspecified the result s site section. CBC (WITH DIFF) STAT 08/21/2011 1:05 PM Malignant neoplasm Results for this EDT of bronchus and procedure ar e in lung, unspecified the result s site section. LACTATE DEHYDROGENASE STAT 08/21/2011 1:05 PM Malignant johanna plasm Results for this EDT of bronchus and procedure ar e in lung, unspecified the result s site section. COMPREHENSIVE STAT 08/21/2011 1:05 PM Malignant neoplasm Re sults for this METABOLIC PANEL EDT of bronchus and procedure are in (NON-FASTING) lung, unspecified the resul ts site section. documented in this encounter Results (ABNORMAL) DIFFERENTIAL, AUTOMATED (08/21/2011 1:05 PM EDT) [facility] Method Time Signature Neutrophils % 71.9 (H) 34.0 - CERNER 71.0 % MILLENNIUM Neutr Abs (ANC) 6.12 1.50 - CERNER 6.30 MILLENNIUM x10(3)/mc L Lymphocytes % 20.1 19.0 - CERNER 53.0 % MILLENNIUM Lymphocytes Abs 1.7 1.0 - 3.6 CERNER x10(3)/mc MILLENNIUM L Monocytes % 5.3 4.0 - CERNER 13.0 % MILLENNIUM Monocyte Abs 0.4 0.2 - 1.0 CERNER x10(3)/mc MILLENNIUM L Eosinophils % 1.9 0.0 - 7.0 CERNER % MILLENNIUM Eosinophils Abs 0.2 0.0 - 0.5 CERNER x10(3)/mc MILLENNIUM L Basophils % 0.7 0.0 - 2.0 CERNER % MILLENNIUM Basophils Abs 0.1 0.0 - 0.2 CERNER x10(3)/mc MILLENNIUM L Immature Gran % 0.10 0.00 - CERNER 0.66 % MILLENNIUM Comment: Immature granulocytes(IG's)percentage an d absolute count will include metamyelocytes, myelocytes, and promyelo cytes. Blood smears from CBCs yielding IG's will be scanned manually for concor dance. If this scan disagrees with the automated IG or if promyelocytes are not ed, a manual differential will be performed. Shanae Gran Abs 0.01 0.00 - 0.05 x10(3)/mcL CER NER MILLENNIUM Specimen Anatomical Collection Method Collection Time Receive d Time (Source) Location / / Volume Laterality Blood specimen 08/21/2011 1:05 PM 012 1:12 (specimen) EDT PM EDT Ochoa Harrell MD HEMATOLOGY ORDERABLES Performing Organization Address City/State/ZIP Code Phon e Number [place] [phone] CERNER MILLENNIUM (ABNORMAL) D-Dimer, Quantitative (08/21/2011 1:05 PM EDT) P athologist Signature D-Dimer, Quant 620 (H) 0 - 500 CERNER FEU ng/ml MILLENNIUM Comment: The D-Dimer assay is used to aid in the diagnosis of deep vein thrombosis and pulmonary embolism. A normal D-Dimer res ult (less than 500 FEU ng/ml) has a negative predictive value of approximate ly 95% for the exclusion of acute PE and DVT when there is low to moderate pr etest probability. Specimen Anatomical Collection Method Collection Time Receive d Time (Source) Location / / Volume Laterality Blood specimen 08/21/2011 1:05 PM 012 1:12 (specimen) EDT PM EDT Resulting Agency Comment Spec In Lab Ochoa Harrell MD HEMATOLOGY ORDERABLES Performing Organization Address City/[facility] [place] [address] CERNER MILLENNIUM Lactate Dehydrogenase (08/21/2011 1:05 PM EDT) athologist Signature LDH 174 110 - 220 CERNER unit/L MILLENNIUM Specimen Anatomical Collection Method Collection Time Receive d Time (Source) Location / / Volume Laterality Blood specimen 08/21/2011 1:05 PM 012 1:12 (specimen) EDT PM EDT Resulting Agency Comment Spec In Lab Ochoa Harrell MD CHEMISTRY ORDERABLES Performing Organization Address City/[facility] [place] [address] CERNER MILLENNIUM (ABNORMAL) Comprehensive metabolic panel (non-fasting) (08/21/2011 1:05 PM EDT) athologist Signature Glucose Lvl 104 60 - 199 CERNER mg/dL MILLENNIUM Comment: Diabetes: >=200 mg/dL plus symp toms BUN 14 8 - 18 mg/dL CERNER MILLENNIUM Creatinine 1.04 0.70 - 1.20 mg/dL CERNER MILL ENNIUM Sodium 137 135 - 145 mmol/L CERNER BELLA NIUM Potassium 3.9 3.5 - 5.0 mmol/L CERNER BELLA NIUM Comment: Please note: ??Patients with WBC >100,00 0 may have falsely elevated Potassium levels. ??For accurate Potassium quantif ication in these patients send serum separator tube (gold top) for subsequent determinations. ??Contact the Clinical Chemistry Laboratory if there are any qu estions. Chloride 100 98 - 107 mmol/L CERNER MILLENN IUM CO2 30 22 - 31 mmol/L CERNER MILLENNI UM Anion Gap 7 5 - 15 mmol/L CERNER MILLENNIU M Calcium 9.9 8.5 - 10.5 mg/dL CERNER BELLA NIUM Total Protein 7.3 6.4 - 8.3 gm/dL CERNER MIL LENNIUM Albumin 4.1 3.2 - 5.2 gm/dL CERNER MILLENN IUM AST 13 0 - 30 unit/L CERNER MILLENNIU M ALT 13 0 - 30 unit/L CERNER MILLENNIU M Alk Phos 107 (H) 40 - 104 unit/L CERNER MILLENN IUM Total Bilirubin 0.3 0.2 - 1.3 mg/dL CERNER M ILLENNIUM Bili, Direct 0.1 0.0 - 0.3 mg/dL CERNER MILL ENNIUM Estimated GFR 54 (L) >=60 CERNER MILLENNIU M Comment: The National Kidney Disease Education Pr ogram (NKDEP) has recommended all laboratories report estimated GFR (eGFR) along with plasma creatinine measurements to assist you with recognit ion of early kidney disease. Caveats: ??Plasma creatinine should be a t steady-state (unchanged within the past week). For patient s multiply eGFR by 1.2. The MDRD equation was developed using patients be tween the ages of 18 and 70 years. ?? The MDRD equation has not been validated for patients < 18 years of age and should not be used to assess renal function in the pediatric population. ??The MDRD eGFR equation will also overestimate the true GFR of patients above the age of 70. ??This overestimation is variable bu t increases with age. At present, NKDEP does NOT recommend usi ng the MDRD equation for drug dosing purposes and pharmacists should continue to use their current dosing methods. In addition, numerical eGFR values great er than 60 ml/min/1.73 square meters should be treated as > 60, and not an ex act number due to greater inaccuracies at these higher values. Per NKDEP, they classify normal renal function as any GFR >60ml/min/1.73 square meters; chronic kidney disease wh en GFR <60, and renal failure when GFR <15. ??This calculation may not be valid for patients with atypical muscle mass (very lean or obese), acute renal failur e, and in patients with diabetic kidney disease. References: http://nkdep.nih.gov/resources/NKDEP_Sug gestn4Labs_0606_508.pdf http://www.kidney.org/professionals/kls/ pdf/faq_gfr.pdf Carmine K, Isa NA, Kirill AK, Donato TS, Chhaya AD, Bella NUSRAT. Relative performance of the MDRD and CKD-EPI equa tions for estimating glomerular filtration rate among patients with vari ed clinical presentations. Clin J Am Soc Nephrol;6:1963-72. Specimen Anatomical Collection Method Collection Time Receive d Time (Source) Location / / Volume Laterality Blood specimen 08/21/2011 1:05 PM 012 1:12 (specimen) EDT PM EDT Resulting Agency Comment Spec In Lab Ochoa Harrell MD CHEMISTRY ORDERABLES Performing Organization Address City/State/[place] [address] CERNER MILLENNIUM (ABNORMAL) CBC (with Diff) (08/21/2011 1:05 PM EDT) P athologist Signature WBC 8.5 4.0 - 10.0 CERNER x10(3)/mcL MILLENNIUM RBC 3.94 3.93 - CERNER 5.22 MILLENNIUM x10(6)/mcL Hemoglobin 11.5 11.2 - CERNER 15.7 gm/dL MILLENNIUM Hematocrit 35.6 34.0 - CERNER 45.0 % MILLENNIUM MCV 90.4 79.0 - CERNER 94.0 fL MILLENNIUM MCH 29.2 26.6 - CERNER 32.2 pg MILLENNIUM MCHC 32.3 32.0 - CERNER 36.5 gm/dL MILLENNIUM Platelets 247 145 - 370 CERNER x10(3)/mcL MILLENNIUM RDWSD 48.2 (H) 35.0 - CERNER 46.0 fL MILLENNIUM RDWCV 14.6 (H) 10.9 - CERNER 14.4 % MILLENNIUM MPV 10.3 9.0 - 12.0 CERNER fL MILLENNIUM Specimen Anatomical Collection Method Collection Time Receive d Time (Source) Location / / Volume Laterality Blood specimen 08/21/2011 1:05 PM 012 1:12 (specimen) EDT PM EDT Resulting Agency Comment Spec In Lab Ochoa Harrell MD HEMATOLOGY ORDERABLES Performing Organization Address City/State/ZIP Code Phon e Number [place] [phone] [facility] documented in this encounter Visit Diagnoses Diagnosis Malignant neoplasm of bronchus and lung, unspecified site documented in this encounter Care Teams Education Paraprofessional Relationship Specialty Start Date End Date Gerry Hackett MD PCP - General 03/14/10 06/18/[address] [place] [address] documented as of this encounter
--- OUTSIDE RECORDS SUMMARY | 2022-02-02 00:33 | XMS_ITS | Encounter Summary ---
:1950 Author Organization [facility] [address] Care Team Providers Name Role Phone Gerry Hackett MD Primary Care Provider [phone] Encounter Details Date Type Department Care Team Description 10/04/2010 Orders Only Endocrinology at [facility] C Diane Serra, Vitamin D deficiency [facility] Martha galan APRN (Primary Dx) [place] [address] [facility] [phone] CENTER ENDOCRINOLOGY DEPT. [place], [place] [address] Social History Tobacco Use Types Packs/Day Years Used Date Former Smoker Comments: stopped 14 years ago Alcohol Use Standard Drinks/Week Comments Not Asked 0 (1 standard drink = 0.6 oz pure alcoho l) Sex Assigned at Date Recorded Not on file documented as of this encounter Plan of Treatment Upcoming Encounters Date Type Specialty Care Team Description 04/04/2022 Office Visit Dermatology Celena Salazar MD [facility] [address] THER[address] [place], [place] [address] (Wo rk) documented as of this encounter Visit Diagnoses Diagnosis Vitamin D deficiency - Primary Unspecified vitamin D deficiency documented in this encounter Care Teams Senior Oracle Developer Relationship Specialty Start Date End Date Gerry Hackett MD PCP - General 03/14/10 06/18/[address] [place] [address] documented as of this encounter
--- OUTSIDE RECORDS SUMMARY | 2022-02-02 00:33 | XMS_ITS | Encounter Summary ---
:1950 Author Organization [facility] [place] [address] Care Team Providers Name Role Phone Gerry Hackett MD Primary Care Provider [phone] Reason for Visit Reason Comments Eye Problem cat eval Diabetes since 2003 Encounter Details Date Type Department Care Team Description 08/03/2013 Office Visit Ophthalmology at [facility] C Vincent Lawler, Cataracts, bilateral (Primar y Dx); [facility] MD ZAPATA (insulin dependent diabetes mellitu s); [facility] Myopia, bilateral; [place] [address] Presbyopia OU [phone] OPHTHALMOLOGY DEPT. [place], [place] [address] Social History Tobacco Use Types Packs/Day Years Used Date Former Smoker Quit: 04/04/19 99 Comments: stopped 14 years ago Alcohol Use Standard Drinks/Week Comments No 0 (1 standard drink = 0.6 oz pure alcoho l) Sex Assigned at Date Recorded Not on file documented as of this encounter Progress Notes Vincent Lawler MD - 08/03/2013 3:58 PM EDT Assessment/Plan: Pennie Rodriguez is a 62 y.o. female with the following ophthalmic issues: 1. Cataracts OU - good vision 2. IDDM, no retinopathy. Rec good DM care, yearly DFE with Dr. Griffith 3. Myopia/presbyopia Comment: Her corrected vision remains good, and her glare vision also remains good. Discussed cataracts and cataract surgery. No need for cataract surgery at this time. [facility]O cataract surgery pamphlet given to patient. Follow up with Dr. Griffith documented in this encounter Plan of Treatment Upcoming Encounters Date Type Specialty Care Team Description 04/04/2022 Office Visit Dermatology Celena Salazar MD [facility] ER DR THERESE LEOS[address] [place], [place] [address] (Wo rk) documented as of this encounter Visit Diagnoses Diagnosis Cataracts, bilateral - Primary Unspecified cataract IDDM (insulin dependent diabetes mellitu s) Type II or unspecified type diabetes татьяна litus without mention of complication, not stated as uncontrolled Myopia, bilateral Myopia Presbyopia OU Presbyopia documented in this encounter Care Teams Obstetrics And Gynecology Professor Relationship Specialty Start Date End Date Gerry Hackett MD PCP - General 03/14/10 06/18/[address] [place] [address] documented as of this encounter
--- OUTSIDE RECORDS SUMMARY | 2022-02-02 00:33 | XMS_ITS | Encounter Summary ---
:1950 Author Organization [facility] Address [address] [place] [address] Care Team Providers Name Role Phone Gerry Hackett MD Primary Care Provider [phone] Reason for Visit Reason Comments Diabetes Encounter Details Date Type Department Care Team Description 12/04/2012 Office Visit Endocrinology at [facility] Diane Lewis, Type II or [facility] INSTRUMENTATION AND CONTROLS DESIGNER unspecified type Drive [facility] [place] [place] [address] without mention of [phone] ENDOCRINOLOGY complication, not DEPT. stated as [place], [place] [address] uncontrolled (Primary [phone] Dx) (Work) Social History Tobacco Use Types Packs/Day Years Used Date Former Smoker Quit: 04/04/19 99 Comments: stopped 14 years ago Alcohol Use Standard Drinks/Week Comments Not Asked 0 (1 standard drink = 0.6 oz pure alcoho l) Sex Assigned at Date Recorded Not on file documented as of this encounter Last Filed Vital Signs Vital Sign Reading Time Taken Comments Blood Pressure 102/65 12/04/2012 1:53 PM EDT Pulse 88 12/04/2012 1:53 PM EDT Temperature - - Respiratory Rate - - Oxygen Saturation - - Inhaled Oxygen Concentration - - Weight 141.8 kg (312 lb 9.6 oz) 12/04/2012 1:53 PM EDT Height - - Body Mass Index 50.45 08/26/2012 2:47 PM EDT documented in this encounter Patient Instructions Patient InstructionsDiane Serra INSTRUMENTATION AND CONTROLS DESIGNER - 12/04/2012 2:38 PM EDT No change in diabetes medications today When you use apidra, 1 unit lowers glucose 20 points, target glucose <130 before meals documented in this encounter Progress Notes Diane Serra APRN - 12/04/2012 4:30 PM EDT DATE OF VISIT: 12/04/2012 REASON FOR VISIT: Followup type 2 DM in fair overall control. Also, followup hypertension in good control, class III obesity. BRIEF HISTORY: Presents and states her glucose levels are usually okay, but sometimes they get close to 200 and occasionally over 200. DIABETES REGIMEN: Amaryl 4 mg twice a day. Lantus SoloSTAR pen 34 units in p.m. Apidra, often forgets to take it, was advised to take it before evening meal. Januvia 100 mg daily. Prevention strategies are up to date. REVIEW OF SYSTEMS: Depression and Mood: Overall is doing well. Enjoys summer season and enjoys music. Eyes: No recent vision changes. No recent headaches or chest pain. 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 Sleep pattern has been okay. Extremities: Has some joint pains. PHYSICAL EXAM: Appearance: She is globally obese with a very large central girth, pleasant and talkative with good eye contact. Eyes: No retinopathy by green light exam. Neck: No thyromegaly or lymphadenopathy. Heart: Regular rate and rhythm. No murmurs. Lungs: Clear to auscultation on right, none heard on left. Feet: Skin is normal. Pulses are normal. Neuro: Normal sensation to 10 g of pressure. LAB DONE TODAY: Hemoglobin A1c 7.8%, previous was 8.1%. Reviewed her 24-hour meal plan. States she has been trying to follow [employer], but she does not enjoy their meals. Breakfast is two small bagels with cream cheese. Morning snack today was two cookies. Dinner last evening was turkey sandwich. PHYSICAL ACTIVITY: Not much related to shortness of breath. IMPRESSION AND PLAN: Diabetes mellitus type 2 in fair overall control. No change in regimen today. Advised the patient that 1 unit of Apidra lowers glucose 20 points with a target glucose of under 130 before meals three times a day. At previous office visit, Apidra before evening meal was recommended, but the patient has been trying to eat smaller portions and may not need it as often. Weight 312 pounds, she has lost 3 pounds since the previous office visit. Blood pressure 102/65. She is at high risk for sleep apnea, but she does not think she would wear a mask. States her son does have a mask and he does not wear it consistently and she has a friend who has a mask and never wears it. This was a 30-minute office visit with 29 minutes spent counseling [id number] with the patient in the management of glucose levels, reviewing blood glucose results, reviewing her medication regimen and no changes were advised today, and reviewing a healthy meal plan. She states she tries to limit her calorie intake to 300 to 400 calories for her evening meal. Return to office in six Months. Has appointment scheduled with PCP. Will check CMP, hemoglobin A1c, HDL, DLDL, and microalbumin. Recent Results (from the past 72 hour(s)) COMPREHENSIVE METABOLIC PANEL (NON-FASTING) Component Value Range Glucose Lvl 190 60 - 199 mg/dL BUN 20 (*) 8 - 18 mg/dL Creatinine 1.10 0.70 - 1.20 mg/dL Sodium 134 (*) 135 - 145 mmol/L Potassium 4.1 3.5 - 5.0 mmol/L Chloride 96 (*) 98 - 107 mmol/L CO2 27 22 - 31 mmol/L Anion Gap 11 5 - 15 mmol/L Calcium 9.3 8.5 - 10.5 mg/dL Total Protein 7.2 6.4 - 8.3 gm/dL Albumin 3.9 3.2 - 5.2 gm/dL AST 10 0 - 30 unit/L ALT 11 0 - 30 unit/L Alk Phos 108 (*) 40 - 104 unit/L Total Bilirubin 0.2 0.2 - 1.3 mg/dL Bili, Direct <0.1 0.0 - 0.3 mg/dL Estimated GFR 50 (*) >=60 HEMOGLOBIN A1C Component Value Range Hemoglobin A1C 7.8 (*) 4.3 - 6.1 % Est Avg Gluc 177 MICROALBUMIN, URINE, RANDOM Component Value Range U Creatinine 177 U Ran Malb Conc 3.5 U Ran Malb Calc 2 documented in this encounter Plan of Treatment Upcoming Encounters Date Type Specialty Care Team Description 04/04/2022 Office Visit Dermatology Celena Salazar MD [facility] ER DR [address] [id number] (Wo rk) documented as of this encounter Results Microalbumin, urine, random (08/10/2013 2:35 PM EDT) P athologist Signature U Creatinine 94 mg/dL CERNER MILLENNIUM U Albumin Conc, <3.0 mg/L CERNER Random MILLENNIUM Alb/Cr Ratio, <3 mcg/mg Cr CERNER Random MILLENNIUM Comment: Reference Range* Random collection (mcg/mg creatinine) Normal ?<30 Microalbuminuria ?? 30 - 300 Clinical Albuminuria ?? >300 *[place] Diabetes Association. Diabetic Nephropathy. Diabetes Care 1997;(Suppl [...] Organization Address City/State/[place] [address] CERNER MILLENNIUM LDL Cholesterol, Direct (08/10/2013 2:26 PM EDT) P athologist Signature LDL Chol 84 <=99 mg/dL CERNER Direct MILLENNIUM Comment: The National Cholesterol Education Progr am (NCEP) has set the following guidelines for LDL Cholesterol: Reference range: ?? Optimal: ?<100 mg/dL ?? Near Optimal/Above Optimal: ?? 100-1 29 mg/dL ?? Borderline high: ?130-159 mg/dL ?? High: ? 160-189 mg/dL ?? Very high: ?>fk=898 mg/dL ARIADNE 2001: 285(19):9081-7806 Specimen Anatomical Collection Method Collection Time Receive d Time (Source) Location / / Volume Laterality Blood specimen 08/10/2013 2:26 PM 014 2:44 (specimen) EDT PM EDT Resulting Agency Comment Spec In Lab Pratik Cee MD CHEMISTRY ORDERABLES Performing Organization Address City/State/[place] [address] [facility] HDL/Cholesterol Profile (08/10/2013 2:26 PM EDT) athologist Signature Chol, Total 153 <=199 mg/dL [facility] Comment: Recommendations of the NCEP Adult Treatm ent Panel for the following risk cutoff thresholds for the [place] populatio n: Desirable: <200 mg/dL Borderline High: 200-239 mg/dL High: > or = 240 mg/dL HDL 49 >=40 mg/dL [facility] Comment: Reference range: ??Low HDL: ?? < 40 mg/dL ??Normal: ?40-60 mg/dL ??Desirable: > 60 mg/dL ARIADNE 2001; 285(19):4180-6285 Chol/HDL Ratio 3.1 ratio [facility] Comment: A Cholesterol to HDL ratio below 4:1 is desirable. ??Studies suggest that increased CAD risk occurs at ratios abov e 5 for females and above 6 for men. ? [place] Heart Association ??(htt p://www.americanheart.org) ? Kathryn Int Med, 1994; 121:641 ? AM J Med, 1998; 105(1A):48S Specimen Anatomical Collection Method Collection Time Receive d Time (Source) Location / / Volume Laterality Blood specimen 08/10/2013 2:26 PM 014 2:44 (specimen) EDT PM EDT Resulting Agency Comment Spec In Lab Pratik Cee MD CHEMISTRY ORDERABLES Performing Organization Address City/State/[place] [address] [facility] (ABNORMAL) Hemoglobin A1c (08/10/2013 2:26 PM EDT) Analysis Performed At Patho logist Time Signature Hemoglobin A1C 9.7 (H) <=5.6 % [facility] Comment: As of 2013 the methodology [...] 36: Suppl. 1, S67-74 Est Avg Gluc 232 mg/dL [facility] Comment: eAG equivalents for HbA1c percentages: HbA1c(%) ?eAG(mg/dL) 6.0 ?126 6.5 ?140 7.0 ?154 7.5 ?169 8.0 ?183 8.5 ?197 9.0 ?212 9.5 ?226 10.0 ? 240 Limitations: The eAG calculation has not been validated on women, individuals below 18 years old and above 70 years old, and individuals with hemoglobinopathies. Additional resources are available on ADA website: ??http://professional.diabetes.org/gluc osecalculator.aspx Chevy PARTIDA, Jr J, Syed R, et al. ??Tr anslating the A1C assay into estimated average glucose values. ??Diabetes Care 2008:31(8):9892-1687. Specimen Anatomical Collection Method Collection Time Receive d Time (Source) Location / / Volume Laterality Blood specimen 08/10/2013 2:26 PM 014 2:44 (specimen) EDT PM EDT Resulting Agency Comment Spec In Lab Pratik Cee MD CHEMISTRY ORDERABLES Performing Organization Address City/State/ZIP Code Phon e Number [place] [id number] CERNER MILLENNIUM (ABNORMAL) Comprehensive metabolic panel (non-fasting) (08/10/2013 2:26 PM EDT) athologist Signature Glucose Lvl 266 (H) 60 - 199 CERNER mg/dL MILLENNIUM Comment: Diabetes: >=200 mg/dL plus symp toms BUN 22 (H) 8 - 18 mg/dL CERNER MILLENNIUM Creatinine 1.20 0.70 - 1.20 mg/dL CERNER MILL ENNIUM Comment: Please note that the pediatric reference intervals supplied above were not validated at [facility]. Results from pediatri c patients should be [...] Organization Address City/State/[place] [address] CERNER MILLENNIUM documented in this encounter Visit Diagnoses Diagnosis Type II or unspecified type diabetes татьяна litus without mention of complication, not stated as uncontrolled - Primary documented in this encounter Care Teams Herb Doctor Relationship Specialty Start Date End Date Gerry Hackett MD PCP - General 03/14/10 06/18/17 [address] [place] [address] documented as of this encounter
--- OUTSIDE RECORDS SUMMARY | 2022-02-02 00:33 | XMS_ITS | Encounter Summary ---
:1950 Author Organization [facility] [place] [address] Care Team Providers Name Role Phone Gerry Hackett MD Primary Care Provider [phone] Reason for Visit Reason Onset Date Comments Other 08/07/2012 Encounter Details Date Type Department Care Team Description 08/07/2012 Telephone Endocrinology at [facility] C Glory Murdock CDE [facility] [place] [address] ENDOCRINOLOGY DEPT. [phone] [place], [place] [address] (Wo rk) Social History Tobacco Use Types Packs/Day Years Used Date Former Smoker Quit: 04/04/19 99 Comments: stopped 14 years ago Alcohol Use Standard Drinks/Week Comments Not Asked 0 (1 standard drink = 0.6 oz pure alcoho l) Sex Assigned at Date Recorded Not on file documented as of this encounter Miscellaneous Notes Telephone Encounter - Glory Murdock RN - 08/07/2012 11:09 AM EDT This patient is confused. She takes 1 glimiperide in am, Lantus 34 hs and and Apridra pre-meals (to start). You sent her a message which confused her about the use of glimiperide (to take half?). Please call her at [phone]. documented in this encounter Plan of Treatment Upcoming Encounters Date Type Specialty Care Team Description 04/04/2022 Office Visit Dermatology Celena Salazar MD [facility] ER [address] [place], [place] [address] (Wo rk) documented as of this encounter Visit Diagnoses Not on filedocumented in this encounter Care Teams High School Chemistry Teacher Relationship Specialty Start Date End Date Gerry Hackett MD PCP - General 03/14/10 06/18/[address] [place] [address] documented as of this encounter
--- OUTSIDE RECORDS SUMMARY | 2022-02-02 00:33 | XMS_ITS | Encounter Summary ---
:1950 Author Organization [facility] Address [address] [place] [address] Care Team Providers Name Role Phone Gerry Hackett MD Primary Care Provider [phone] Reason for Visit Reason Onset Date Comments Labs Only 09/26/2010 Encounter Details Date Type Department Care Team Description 09/26/2010 Telephone Endocrinology at [facility] C Diane Serra APRN Labs Only [facility] [place] [address] ENDOCRINOLOGY DEPT. [phone] [place], [place] [address] (Wo rk) Social History Tobacco Use Types Packs/Day Years Used Date Former Smoker Comments: stopped 14 years ago Sex Assigned at Date Recorded Not on file documented as of this encounter Miscellaneous Notes Telephone Encounter - Diane Serra APRN - 09/29/2010 9:27 AM EDT lab documented in this encounter Plan of Treatment Upcoming Encounters Date Type Specialty Care Team Description 04/04/2022 Office Visit Dermatology Celena Salazar MD [facility] ER DR [address], [place] [address] (Wo rk) documented as of this encounter Results LDL cholesterol, direct (10/03/2010 12:34 PM EDT) P athologist Signature LDL Chol 69 <=99 mg/dL [facility] Direct [facility] Comment: The National Cholesterol Education Progr am (NCEP) has set the following guidelines for LDL Cholesterol: Reference range: ?? Optimal: ?<100 mg/dL ?? Near Optimal/Above Optimal: ?? 100-1 29 mg/dL ?? Borderline high: ?130-159 mg/dL ?? High: ? 160-189 mg/dL ?? Very high: ?>yr=856 mg/dL ARIADNE 2001: 285(19):2475-0363 Specimen Anatomical Collection Method Collection Time Receive d Time (Source) Location / / Volume Laterality Blood specimen 10/03/2010 12:34 1 1:05 (specimen) PM EDT PM EDT Pratik Cee MD CHEMISTRY ORDERABLES Performing Organization Address City/State/[place] [address] [facility] HDL cholesterol (10/03/2010 12:34 PM EDT) athologist Signature Chol, Total 143 <=199 mg/dL [facility] Comment: Recommendations of the NCEP Adult Treatm ent Panel for the following risk cutoff thresholds for the [place] populatio n: Desirable: <200 mg/dL Borderline High: 200-239 mg/dL High: > or = 240 mg/dL HDL 51 >=40 mg/dL [facility] Comment: Reference range: ??Low HDL: ?? < 40 mg/dL ??Normal: ?40-60 mg/dL ??Desirable: > 60 mg/dL ARIADNE 2001; 285(19):0245-5858 Chol/HDL Ratio 2.8 ratio CERNER MILLENNI UM Comment: A Cholesterol to HDL ratio below 4:1 is desirable. ??Studies suggest that increased CAD risk occurs at ratios abov e 5 for females and above 6 for men. ? [place] Heart Association ??(htt p://www.americanheart.org) ? Kathryn Int Med, 1994; 121:641 ? AM J Med, 1998; 105(1A):48S Specimen Anatomical Collection Method Collection Time Receive d Time (Source) Location / / Volume Laterality Blood specimen 10/03/2010 12:34 1 1:05 (specimen) PM EDT PM EDT Pratik Cee MD CHEMISTRY ORDERABLES Performing Organization Address City/[facility]/[place] [address] CERNER MILLENNIUM (ABNORMAL) Hepatic function panel (10/03/2010 12:34 PM EDT) athologist Signature Total Protein 7.1 6.4 - 8.3 CERNER gm/dL MILLENNIUM Albumin 3.9 3.2 - 5.2 CERNER gm/dL MILLENNIUM AST 12 0 - 30 CERNER unit/L MILLENNIUM ALT 12 0 - 30 CERNER unit/L MILLENNIUM Alk Phos 122 (H) 40 - 104 CERNER unit/L MILLENNIUM Total 0.2 0.2 - 1.3 CERNER Bilirubin mg/dL MILLENNIUM Bili, Direct <0.1 0.0 - 0.3 CERNER mg/dL MILLENNIUM Specimen Anatomical Collection Method Collection Time Receive d Time (Source) Location / / Volume Laterality Blood specimen 10/03/2010 12:34 1 1:05 (specimen) PM EDT PM EDT Pratik Cee MD CHEMISTRY ORDERABLES Performing Organization Address City/[facility]/[place] [address] CERNER MILLENNIUM (ABNORMAL) Vitamin D 25 hydroxy (10/03/2010 12:34 PM EDT) athologist Signature 25-Hydroxy D2 <4.0 ng/mL CERNER MILLENNIUM Comment: Test Performed by: [facility] [address], [place] [address] Coding Compliance Specialist: Josee Brandon, Ph. D. 25-Hydroxy D3 9.9 ng/mL JACINTO JEREZISylvia M Comment: Test Performed by: [facility] [place] [address] Coding Compliance Specialist: Josee Brandon, Ph. D. 25-OH Vit D Total 9.9 (L) ng/mL JACINTO PATEL NNIUM Comment: Interpretation: <10 (severe deficiency) -- REFERENCE VALUE -- 25-HYDROXY D TOTAL (D2+D3) Optimum levels in the normal population are 25-80 Test Performed by: [facility] [place] [address] Coding Compliance Specialist: Josee Brandon, Ph. D. Specimen Anatomical Collection Method Collection Time Receive d Time (Source) Location / / Volume Laterality Blood specimen 10/03/2010 12:34 1 1:59 (specimen) PM EDT PM EDT Pratik Cee MD CHEMISTRY ORDERABLES Performing Organization Address City/[facility]/[place] [address] CERNER MILLENNIUM TSH (10/03/2010 12:34 PM EDT) P athologist Signature TSH 3.42 0.27 - 4.20 CERNER mcIU/mL MILLENNIUM Specimen Anatomical Collection Method Collection Time Receive d Time (Source) Location / / Volume Laterality Blood specimen 10/03/2010 12:34 1 1:05 (specimen) PM EDT PM EDT Pratik Cee MD CHEMISTRY ORDERABLES Performing Organization Address City/[facility]/ZIP [facility] [place] [address] CERNER MILLENNIUM (ABNORMAL) Hemoglobin A1c (10/03/2010 12:34 PM EDT) Analysis Performed At Patho logist Time Signature Hemoglobin A1C 7.9 (H) 4.3 - 6.1 CERNER % MILLENNIUM Est Avg Gluc 180 mg/dL CERNER MILLENNIUM Comment: eAG equivalents for HbA1c percentages: HbA1c(%) ?eAG(mg/dL) 6.0 ?126 6.5 ?140 7.0 ?154 7.5 ?169 8.0 ?183 8.5 ?197 9.0 ?212 9.5 ?226 10.0 ? 240 Limitations: The eAG calculation has not been validated on women, individuals below 18 years old and above 70 years old, and individuals with hemoglobinopathies. Additional resources are available on ADA website: ??http://professional.diabetes.org/gluc osecalculator.aspx Reference: Chevy PARTIDA, Jr J, Syed R, et al. ??Tr anslating the A1C assay into estimated average glucose values. ??Diabetes Care 2008:31(8):7849-8015. Specimen Anatomical Collection Method Collection Time Receive d Time (Source) Location / / Volume Laterality Blood specimen 10/03/2010 12:34 1 1:05 (specimen) PM EDT PM EDT Pratik Cee MD CHEMISTRY ORDERABLES Performing Organization Address City/State/[place] [address] [address] [facility] documented in this encounter Visit Diagnoses Diagnosis Diabetes - Primary Type II or unspecified type diabetes татьяна litus without mention of complication, not stated as uncontrolled documented in this encounter Care Teams Academic Coach Relationship Specialty Start Date End Date Gerry Hackett MD PCP - General 03/14/10 06/18/[address] [place] [address] documented as of this encounter
--- OUTSIDE RECORDS SUMMARY | 2022-02-02 00:33 | XMS_ITS | Encounter Summary ---
:1950 Author Organization [facility] [place] [address] Care Team Providers Name Role Phone Gerry Hackett MD Primary Care Provider [phone] Reason for Visit Reason Onset Date Comments Other 08/06/2012 Encounter Details Date Type Department Care Team Description 08/06/2012 Telephone Endocrinology at [facility] C Glory Murdock CDE [facility] [place] [address] ENDOCRINOLOGY DEPT. [phone] [place] [id number] (Wo rk) Social History Tobacco Use Types Packs/Day Years Used Date Former Smoker Quit: 04/04/19 99 Comments: stopped 14 years ago Alcohol Use Standard Drinks/Week Comments Not Asked 0 (1 standard drink = 0.6 oz pure alcoho l) Sex Assigned at Date Recorded Not on file documented as of this encounter Miscellaneous Notes Telephone Encounter - Glory Murdock RN - 08/06/2012 3:55 PM EDT This patient is on Apidra acmeals. When you sent her a letter about her bloodwork you told her to use 1/2 the glimiperide acmeals. Is she supposed to be on both? [phone] documented in this encounter Plan of Treatment Upcoming Encounters Date Type Specialty Care Team Description 04/04/2022 Office Visit Dermatology Celena Salazar MD [facility] [address] [place], [place] [address] (Wo rk) documented as of this encounter Visit Diagnoses Not on filedocumented in this encounter Care Teams Senior Research Fellow Relationship Specialty Start Date End Date Gerry Hackett MD PCP - General 03/14/10 06/18/[address] [place] [address] documented as of this encounter
--- OUTSIDE RECORDS SUMMARY | 2022-02-02 00:33 | XMS_ITS | Encounter Summary ---
:1950 Author Organization [facility] Address [address] [place] [address] Care Team Providers Name Role Phone Gerry Hackett MD Primary Care Provider [phone] Encounter Details Date Type Department Care Team Description 12/04/2012 Hospital Encounter Laboratory Pratik Cee, Type II or One [facility] unspecified type Drive [facility] diabetes mellitus [place], [place] [id number] ENDOCRINOLOGY complication, [place] [address] Social History Tobacco Use Types Packs/Day Years [...] Start Date End Date atorvastatin (LIPITOR) 40 Take 40 mg by [...] (COMBIVENT) 18-103 mcg/Actuation inhaler omeprazole (PRILOSEC) 20 0 03/07/2010 08/06/2017 mg capsule sitaGLIPtin (JANUVIA) 100 0 03/07/2010 01/14/2017 mg tablet documented as of this encounter Plan of Treatment Upcoming Encounters Date Type Specialty Care Team Description 04/04/2022 Office Visit Dermatology Celena Salazar MD [facility] ER DR THERESE LEOS-DERMAT [place], [place] [address] (Wo rk) documented as of this encounter Procedures Procedure Name Priority Date/Time Associated Diagnosis Comme nts U ALBUMIN/CRE RATIO Routine 12/04/2012 1:12 Type II or Resul ts for this PM EDT unspecified type procedure a re in diabetes mellitus the result s without mention of section. complication, uncontrolled HEMOGLOBIN A1C Routine 12/04/2012 1:04 Type II or Results fo r this PM EDT unspecified type procedure a re in diabetes mellitus the result s without mention of section. complication, uncontrolled COMPREHENSIVE Routine 12/04/2012 1:04 Type II or Results for this METABOLIC PANEL PM EDT unspecified type procedur e are in (NON-FASTING) diabetes mellitus the resul ts without mention of section. complication, uncontrolled documented in this encounter Results Microalbumin, urine, random (12/04/2012 1:12 PM EDT) P athologist Signature U Creatinine 177 mg/dL CERNER MILLENNIUM U Albumin Conc, 3.5 mg/L CERNER Random MILLENNIUM Alb/Cr Ratio, 2 mcg/mg Cr CERNER Random MILLENNIUM Comment: Reference Range* Random collection (mcg/mg creatinine) Normal ?<30 Microalbuminuria ?? 30 - 300 Clinical Albuminuria ?? >300 *[place] Diabetes Association. Diabetic Nephropathy. Diabetes Care 1997;(Suppl 1):S24-S27 Exercise within 24 hour, infection, fe lester, CHF, marked hyperglycemia, and marked hypertension may elevate urinary albumin excretion over baseline values. Specimen Anatomical Collection Method Collection Time Receive d Time (Source) Location / / Volume Laterality Urine specimen 12/04/2012 1:12 PM 013 1:29 (specimen) EDT PM EDT Resulting Agency Comment Spec In Lab Pratik Cee MD URINE ORDERABLES Performing Organization Address City/State/[place] [address] CERNER MILLENNIUM (ABNORMAL) Hemoglobin A1c (12/04/2012 1:04 PM EDT) Analysis Performed At Patho logist Time Signature Hemoglobin A1C 7.8 (H) 4.3 - 6.1 CERNER % MILLENNIUM Comment: The [place] Diabetes Association (ADA) has stated that HbA1c values >or= 6.5% are consistent with the diagnosis of alex betes mellitus. In the absence of hyperglycemia (i.e. plasma glucose > 200 mg/dL) or classic symptoms of hyperglycemia a repeat measurement of Hb A1c should be performed on a separate sample to confirm the diagnosis. The ADA also considers an HbA1c value be tween 5.7% and 6.4% to be consistent with an increased risk of diabetes (pred iabetes). Patients with an HbA1c value in this range should be counseled about their increased risk of progressing to diabetes. Reference: Position Statement: Standards of Medical Care in Diabetes 2013. Diabetes Care 2013:36;suppl 1:S11 -S66. Est Avg Gluc 177 mg/dL CERNER MILLENNIUM Comment: eAG equivalents for HbA1c percentages: HbA1c(%) ?eAG(mg/dL) 6.0 ?126 6.5 ?140 7.0 ?154 7.5 ?169 8.0 ?183 8.5 ?197 9.0 ?212 9.5 ?226 10.0 ? 240 Limitations: The eAG calculation has not been validated on women, individuals below 18 years old and above 70 years old, and individuals with hemoglobinopathies. Additional resources are available on [facility] ADA website: ??http://professional.diabetes.org/gluc osecalculator.aspx Chevy PARTIDA, Jr Spencer, Syed R, et al. ??Tr anslating the A1C assay into estimated average glucose values. ??Diabetes Care 2008:31(8):1786-1727. Specimen Anatomical Collection Method Collection Time Receive d Time (Source) Location / / Volume Laterality Blood specimen 12/04/2012 1:04 PM 013 1:28 (specimen) EDT PM EDT Resulting Agency Comment Spec In Lab Pratik Cee MD CHEMISTRY ORDERABLES Performing Organization Address City/State/[place] [address] CERNER MILLENNIUM (ABNORMAL) Comprehensive metabolic panel (non-fasting) (12/04/2012 1:04 PM EDT) athologist Signature Glucose Lvl 190 60 - 199 CERNER mg/dL MILLENNIUM Comment: Diabetes: >=200 mg/dL plus symp toms BUN 20 (H) 8 - 18 mg/dL CERNER MILLENNIUM Creatinine 1.10 0.70 - 1.20 mg/dL CERNER MILL ENNIUM Comment: Please note that the pediatric reference intervals supplied above were not validated at [facility]. Results from pediatri c patients should be interpreted in conjunction to the patient's age, height and muscle mass. Sodium 134 (L) 135 - 145 mmol/L CERNER BELLA NIUM Potassium 4.1 3.5 - 5.0 mmol/L CERNER BELLA NIUM Comment: Please note: ??Patients with WBC >100,00 0 may have falsely elevated Potassium levels. ??For accurate Potassium quantif ication in these patients send serum separator tube (gold top) for subsequent determinations. ??Contact the Clinical Chemistry Laboratory if there are any qu estions. Chloride 96 (L) 98 - 107 mmol/L CERNER MILLENN IUM [...] - 30 unit/L CERNER MILLENNIU M ALT 11 0 - 30 unit/L CERNER MILLENNIU M Alk Phos 108 (H) 40 - 104 unit/L CERNER MILLENN IUM Total Bilirubin 0.2 0.2 - 1.3 mg/dL CERNER M ILLENNIUM Bili, Direct <0.1 0.0 - 0.3 mg/dL CERNER MILL ENNIUM Estimated GFR 50 (L) >=60 CERNER MILLENNIU M Comment: This [...] Location / / Volume Laterality Blood specimen 12/04/2012 1:04 PM 013 1:28 (specimen) EDT PM EDT Resulting Agency Comment Spec In Lab Pratik Cee MD CHEMISTRY ORDERABLES Performing Organization Address City/State/[place] [address] [facility] documented in this encounter Visit Diagnoses Diagnosis Type II or unspecified type diabetes татьяна litus without mention of complication, uncontrolled documented in this encounter Care Teams Hogshead Opener Relationship Specialty Start Date End Date Gerry Hackett MD PCP - General 03/14/10 06/18/[address] [place] [address] documented as of this encounter
--- OUTSIDE RECORDS SUMMARY | 2022-02-02 00:33 | XMS_ITS | Encounter Summary ---
:1950 Author Organization [facility] Address [address] [place] [address] Care Team Providers Name Role Phone Gerry Hackett MD Primary Care Provider [phone] Encounter Details Date Type Department Care Team Description 07/02/2011 Orders Only Hematology and Ochoa Harrell MD Malignant neoplasm of Oncology at [facility] bronchus and lung, [facility] DR unspecified site Drive HEMATOLOGY/ONCOLOG (Primary Dx) [place] [address] Y DEPT. [phone] [place], [place] [address] Social History Tobacco Use Types [...] 04/04/2022 Office Visit Dermatology Celena Salazar MD [facility] ER DR THERESE LEOS-DERMAT [place], [place] [address] (Wo rk) documented as of this encounter Procedures Procedure Name Priority Date/Time Associated Diagnosis Comme nts XR CHEST PA AND Routine 08/21/2011 1:27 PM Malignant neoplasm Results for this LATERAL EDT of bronchus and procedure ar e in lung, unspecified the result s site section. documented in this encounter Results XR chest routine PA & lateral (08/21/2011 1:27 PM EDT) Anatomical Region Laterality Modality Chest N/A Radiographic Imaging Specimen (Source) Anatomical Collection Method Collection Time Re ceived Time Location / / Volume Laterality 08/21/2011 1:27 PM EDT Impressions 08/21/2011 5:25 PM EDT IMPRESSION: 1. Radiograph unchanged from most recen t prior. ?? Film and interpretation reviewed by the attending Narrative 08/21/2011 5:25 PM EDT CHEST: INDICATION: ??History of lung cancer. Qu estion status of disease. ?? EXAM AND TECHNIQUE: ??PA and lateral x-r ays of the chest were obtained. ?? COMPARISON: ??Film dated 09/12/10. ?? FINDINGS: ??The patient is status post l eft pneumonectomy. The mediastinum has shifted into the left chest and there is corresponding hyperexpansion of the right lung. No new areas of focal opacit y or other evidence of pathology are visible in the right lung. No new suspic ious osseous lesions. ?? Procedure Note Verena Albright MD - 08/21/2011Formatt ing of this note might be different from the original. CHEST: INDICATION: History of lung cancer. Ques tion status of disease. EXAM AND TECHNIQUE: PA and lateral x-ray s of the chest were obtained. COMPARISON: Film dated 09/12/10. FINDINGS: The patient is status post lef t pneumonectomy. The mediastinum has shifted into the left chest and there is corresponding hyperexpansion of the right lung. No new areas of focal opacit y or other evidence of pathology are visible in the right lung. No new suspic ious osseous lesions. IMPRESSION IMPRESSION: 1. Radiograph unchanged from most recen t prior. Film and interpretation reviewed by the attending Ochoa Harrell MD IMG DX ORDERABLES (ABNORMAL) D-Dimer, Quantitative (08/21/2011 1:05 PM EDT) P athologist Signature D-Dimer, Quant 620 (H) 0 - 500 CERNER FEU ng/ml [facility] Comment: The D-Dimer assay is used to [...] Harrell MD HEMATOLOGY ORDERABLES Performing Organization Address [facility]/ZIP [facility] [place] [address] CERNER MILLENNIUM Lactate Dehydrogenase (08/21/2011 1:05 PM EDT) athologist Signature LDH 174 110 - 220 CERNER unit/L MILLENNIUM Specimen Anatomical Collection Method Collection Time Receive d Time (Source) Location / / Volume Laterality Blood specimen 08/21/2011 1:05 PM 012 1:12 (specimen) EDT PM EDT Resulting Agency Comment Spec In Lab Ochoa Harrell MD CHEMISTRY ORDERABLES Performing Organization Address City/[facility] Phon e Number [address] CERNER MILLENNIUM (ABNORMAL) Comprehensive [...] Organization Address City/State/ZIP Code Phon e Number [place] [phone] CERNER MILLENNIUM (ABNORMAL) CBC [...] Organization Address City/State/[place] [address] HOSPITAL LABORATORY [facility] documented in this encounter Visit Diagnoses Diagnosis Malignant neoplasm of bronchus and lung, unspecified site - Primary documented in this encounter Care Teams Gas Golf Cart Repairer Relationship Specialty Start Date End Date Gerry Hackett MD PCP - General 03/14/10 06/18/[address] [place] [address] documented as of this encounter
--- OUTSIDE RECORDS SUMMARY | 2022-02-02 00:33 | XMS_ITS | Encounter Summary ---
:1950 Author Organization [facility] Address [address] [place] [address] Care Team Providers Name Role Phone Gerry Hackett MD Primary Care Provider [phone] Encounter Details Date Type Department Care Team Description 07/16/2013 Orders Only Hematology and Ochoa Harrell MD Malignant neoplasm of Oncology at [facility] bronchus and lung, [facility] [address] unspecified site Drive HEMATOLOGY/ONCOLOG (Primary Dx) [place] [address] Y DEPT. [phone] [place], [place] [address] Social History Tobacco Use Types [...] 04/04/2022 Office Visit Dermatology Celena Salazar MD [facility] ER DR THERESE LEOS-DERMAT [place], [place] [address] (Wo rk) documented as of [...] 08/26/2012. Ochoa Harrell MD IMG DX ORDERABLES Lactate Dehydrogenase (08/26/2013 1:14 PM EDT) athologist Signature LDH 186 110 - 220 CERNER unit/L MILLENNIUM Specimen Anatomical Collection Method Collection Time Receive d Time (Source) Location / / Volume Laterality Blood specimen 08/26/2013 1:14 PM 014 1:19 (specimen) EDT PM EDT Resulting Agency Comment Spec In Lab Ochoa Harrell MD CHEMISTRY ORDERABLES Performing Organization Address City/State/ZIP Code Phon e Number [place] [phone] CERNER MILLENNIUM (ABNORMAL) Comprehensive [...] Harrell MD CHEMISTRY ORDERABLES Performing Organization Address City/[facility]/[place] [address] CERNER MILLENNIUM (ABNORMAL) CBC (with Diff) (08/26/2013 1:14 PM EDT) P athologist Signature WBC 8.0 4.0 - 10.0 [...] Harrell MD HEMATOLOGY ORDERABLES Performing Organization Address City/[facility]/ZIP Code Phon e Number [address] CERNER MILLENNIUM documented in this encounter Visit Diagnoses Diagnosis Malignant neoplasm of bronchus and lung, unspecified site - Primary Malignant neoplasm of bronchus and lung, unspecified site documented in this encounter Care Teams Windows Systems Architect Relationship Specialty Start Date End Date Gerry Hackett MD PCP - General 03/14/10 06/18/17 [address] [place] [address] documented as of this encounter
--- OUTSIDE RECORDS SUMMARY | 2022-02-02 00:33 | XMS_ITS | Encounter Summary ---
:1950 Author Organization [facility] [place] [address] Care Team Providers Name Role Phone Gerry Hackett MD Primary Care Provider [phone] Reason for Visit Reason Onset Date Comments Diabetes 03/27/2011 Encounter Details Date Type Department Care Team Description 03/27/2011 Telephone Endocrinology at [facility] Diane Lewis APRN [facility] [place] [address] ENDOCRINOLOGY DEPT. [phone] [place], [place] [address] (Wo rk) Social History Tobacco Use Types Packs/Day Years Used Date Former Smoker Comments: stopped 14 years ago Alcohol Use Standard Drinks/Week Comments Not Asked 0 (1 standard drink = 0.6 oz pure alcoho l) Sex Assigned at Date Recorded Not on file documented as of this encounter Miscellaneous Notes Telephone Encounter - Nitza Pack LPN - 03/27/2011 1:29 PM EST Message on endo nurse line from patient asking if hgb, which has been low, could be ordered to have done when labs are done for appointment with Diane Abarca 04/04/11 documented in this encounter Plan of Treatment Upcoming Encounters Date Type Specialty Care Team Description 04/04/2022 Office Visit Dermatology Celena Salazar MD [facility] ER DR THERESE LEOS[address]DERMAT [place], [place] [address] (Wo rk) documented as of this encounter Visit Diagnoses Not on filedocumented in this encounter Care Teams Information Technology Technician Relationship Specialty Start Date End Date Gerry Hackett MD PCP - General 03/14/10 06/18/[address] [place] [address] documented as of this encounter
--- OUTSIDE RECORDS SUMMARY | 2022-02-02 00:33 | XMS_ITS | Encounter Summary ---
:1950 Author Organization [facility] Address [address] [place] [address] Care Team Providers Name Role Phone Gerry Hackett MD Primary Care Provider [phone] Encounter Details Date Type Department Care Team Description 08/21/2011 Hospital Encounter XRay at [facility], DR [address] [place] [address] Ochoa Toribio MD [facility] HEMATOLOGY/[place] [address] [place] [address] Social History Tobacco Use Types Packs/Day Years [...] Office Visit Dermatology Celena Salazar MD [facility] DR THERESE LEOS-DERMAT [place], [place] [address] (Wo rk) documented as of this encounter Visit Diagnoses Not on filedocumented in this encounter Care Teams Industrial Maintenance Technician Relationship Specialty Start Date End Date Gerry Hackett MD PCP - General 03/14/10 06/18/[address] [place] [address] documented as of this encounter
--- OUTSIDE RECORDS SUMMARY | 2022-02-02 00:33 | XMS_ITS | Encounter Summary ---
:1950 Author Organization [facility] Address [place] [address] Care Team Providers Name Role Phone Gerry Hackett MD Primary Care Provider [phone] Reason for Visit Reason Comments Diabetes Encounter Details Date Type Department Care Team Description 07/28/2012 Office Visit Endocrinology at [facility] Diane Lewis, Type II or [facility] [address] [employer] unspecified type Drive [facility] [place] [address] without mention of [phone] ENDOCRINOLOGY complication, DEPT. uncontrolled (Primary [place] [phone] 6 Dx) Social History Tobacco Use Types Packs/Day Years Used Date Former Smoker Quit: 04/04/19 99 Comments: stopped 14 years ago Alcohol Use Standard Drinks/Week Comments Not Asked 0 (1 standard drink = 0.6 oz pure alcoho l) Sex Assigned at Date Recorded Not on file documented as of this encounter Last Filed Vital Signs Vital Sign Reading Time Taken Comments Blood Pressure 137/72 07/28/2012 2:44 PM EDT Pulse 82 07/28/2012 2:44 PM EDT Temperature - - Respiratory Rate - - Oxygen Saturation - - Inhaled Oxygen Concentration - - Weight 143.2 kg (315 lb 9.6 oz) 07/28/2012 2:44 PM EDT Height - - Body Mass Index 50.94 10/04/2011 1:04 PM EDT documented in this encounter Patient Instructions Patient InstructionsDiane Serra APRN - 07/28/2012 3:15 PM EDT continue lantus at 32 units in PM Check glucose before evening meal. Take apidra before evening meal when glucose is above 130 Take 6 units when glucose is 130-170 Take 8 units when glucose is 171-200 Take 10 units when glucose is 201 or higher documented in this encounter Progress Notes Diaen Serra APRN - 07/28/2012 6:31 PM EDT DATE OF VISIT: 07/28/2012 REASON FOR VISIT: Followup type 2 DM, now in fair/poor control. Also, followup hypertension, hyperlipidemia, and obesity. BRIEF HISTORY: Presents for followup. States her hemoglobin A1c at PCP office was up to 8.2%, brings written blood glucose log. SBGM, once daily. Fasting in a.m. DIABETES REGIMEN: Lantus SoloSTAR pen 32 units q.p.m., Januvia 100 mg daily, Amaryl, (glimepiride) 4 mg twice a day. 24-HOUR MEAL PLAN: Has been purchasing [employer] meals for herself and for her son. Is discouraged because she is not losing weight as quickly as her son is. PREVENTION STRATEGIES: Prevention strategies are up to date. She does take a statin. REVIEW OF SYSTEMS: Depression and Mood: Discusses some of the challenges of living with her grown son who has paranoid schizophrenia. Eyes: No recent vision changes. No recent headaches or chest pain. She does have shortness of breath and uses oxygen related to history of lung cancer with left lung resection. Extremities: Has some joint pains. PHYSICAL EXAMINATION: Appearance: Ambulates with assistance of a wheeled walker. She is obese with a large central girth. Weight 315 pounds. She has lost three pounds since 2010. Blood pressure 137/72. Eyes: No retinopathy by green light exam. Neck: No thyromegaly or lymphadenopathy. Heart: Regular rate and rhythm. No murmurs. Lungs: Normal breath sounds on right. None heard on left. Feet: Skin is normal. Pulses are normal. Neuro: Normal sensation to 10 g of pressure. LAB DONE TODAY: Hemoglobin A1c 8.1%. IMPRESSION AND PLAN: Diabetes mellitus now in fair/poor control. Will add mealtime Apidra insulin before evening meal. The patient agrees to check glucose levels twice a day. Given dose scale to follow four to six units before meal when glucose levels are under 130, eight units when glucose levels are higher than 130, and 10 units when glucose levels are over 200. Advised the patient to occasionally check a glucose level two hours after meal to see if it is under 180. She states she will try to stay away from candy as much as possible. Gave the patient a copy of her lab results, LDL is at goal. This was a 33-minute office visit with 32 minutes spent counseling [id number] with the patient in the management of glucose levels, adding mealtime insulin, reviewing Apidra, rapid-acting insulin doses to start before evening meal, and congratulating her with attempting weight loss. Return to office in November. Will check hemoglobin A1c, CMP, and other labs that she is due for. Recent Results (from the past 72 hour(s)) HEMOGLOBIN A1C Component Value Range Hemoglobin A1C 8.1 (*) 4.3 - 6.1 % Est Avg Gluc 186 TSH Component Value Range TSH 3.17 0.27 - 4.20 mcIU/mL HDL/CHOL PROFILE Component Value Range Chol, Total 158 <=199 mg/dL HDL 51 >=40 mg/dL Chol/HDL Ratio 3.1 LDL CHOLESTEROL, DIRECT Component Value Range LDL Chol Direct 83 <=99 mg/dL MICROALBUMIN, URINE, RANDOM Component Value Range U Creatinine 186 U Ran Malb Conc 6.2 U Ran Malb Calc 3 documented in this encounter Plan of Treatment Upcoming Encounters Date Type Specialty Care Team Description 04/04/2022 Office Visit Dermatology Celena Salazar MD [facility] ER DR THERESE LEOS-DERMAT [place], [place] [address] (Wo rk) documented as of this encounter Results Microalbumin, urine, random (12/04/2012 1:12 PM EDT) P athologist Signature U Creatinine 177 mg/dL CERNER MILLENNIUM U Albumin Conc, 3.5 mg/L CERNER Random MILLENNIUM Alb/Cr Ratio, 2 mcg/mg Cr CERNER Random MILLENNIUM Comment: Reference Range* Random collection (mcg/mg creatinine) Normal ?<30 Microalbuminuria ?? 30 - 300 Clinical Albuminuria ?? >300 *[place] Diabetes Association. Diabetic Nephropathy. Diabetes Care 1997;(Suppl [...] Organization Address City/State/[place] [address] CERNER MILLENNIUM (ABNORMAL) Hemoglobin A1c (12/04/2012 1:04 PM EDT) Analysis Performed At Patho logist Time Signature Hemoglobin A1C 7.8 (H) 4.3 - 6.1 CERNER % MILLENNIUM Comment: The [place] Diabetes Association (ADA) has stated that HbA1c [...] resources are available on [facility] ADA website: ??http://professional.diabetes.org/gluc osecalculator.aspx Chevy PARTIDA, Jr J, Syed R, et al. ??Tr anslating the A1C assay into estimated average glucose values. ??Diabetes Care 2008:31(8):2014-4095. Specimen Anatomical Collection Method Collection Time Receive d Time (Source) Location / / Volume Laterality Blood specimen 12/04/2012 1:04 PM 013 1:28 (specimen) EDT PM EDT Resulting Agency Comment Spec In Lab Pratik Cee MD CHEMISTRY ORDERABLES Performing Organization Address City/State/ZIP Code Phon e Number [place] [phone] CERNER MILLENNIUM (ABNORMAL) Comprehensive [...] intervals supplied above were not validated at [facility]. Results from pediatri c patients should be [...] Organization Address City/State/ZIP Code Phon e Number [facility] [place] [address] [facility] documented in this encounter Visit Diagnoses Diagnosis Type II or unspecified type diabetes татьяна litus without mention of complication, uncontrolled - Primary documented in this encounter Care Teams Adult Daycare Coordinator Relationship Specialty Start Date End Date Gerry Hackett MD PCP - General 03/14/10 06/18/[address] [place] [address] documented as of this encounter
--- OUTSIDE RECORDS SUMMARY | 2022-02-02 00:33 | XMS_ITS | Encounter Summary ---
:1950 Author Organization [facility] Address [place] [id number] Care Team Providers Name Role Phone Gerry Hackett MD Primary Care Provider [phone] Reason for Referral Consultation (Routine) - Closed Specialty Diagnoses / Procedures Referred By Contact Refer red To Contact Sleep Center Diagnoses Diabetes Hypertension Obesity Diane Serra APRN [facility] [address] [place] [address] [place] [address] Referral ID Status Reason Start Date Expiration Date Visits V isits Requested Authorized [id number] Closed Evaluate and 10/03/2010 04/01/2011 1 1 Treat Reason for Visit Reason Comments Diabetes Encounter Details Date Type Department Care Team Description 10/03/2010 Office Visit Endocrinology at [facility] C Diane Serra, Diabetes; [facility] D adama BEJARANO Hypertension; [place] [address] [facility] Obesity [phone] END[address] [place] [place] [address] (Wo rk) Social History Tobacco Use Types Packs/Day Years Used Date Former Smoker Comments: stopped 14 years ago Alcohol Use Standard Drinks/Week Comments Not Asked 0 (1 standard drink = 0.6 oz pure alcoho l) Sex Assigned at Date Recorded Not on file documented as of this encounter Last Filed Vital Signs Vital Sign Reading Time Taken Comments Blood Pressure 152/78 10/03/2010 1:19 PM EDT Pulse 98 10/03/2010 1:19 PM EDT Temperature - - Respiratory Rate - - Oxygen Saturation - - Inhaled Oxygen Concentration - - Weight 145.2 kg (320 lb) 10/03/2010 1:19 PM EDT Height - - Body Mass Index 53.31 09/12/2010 2:10 PM EDT documented in this encounter Progress Notes Diane Serra APRN - 10/03/2010 6:04 PM EDT DATE OF VISIT: 10/03/2010 REASON FOR VISIT: Followup type 2 DM in continued good/fair control. Also, followup hypertension and class 3 obesity. BRIEF HISTORY: Presents and states she is trying to drink less devendra james and more sugar-free ice tea. 24-HOUR MEAL PLAN: Breakfast was macaroni and cheese and ham or has a muffin or a donut or an egg. Lunch varies quite a bit. Dinner last evening was chicken pot pie. PHYSICAL ACTIVITY: Not much. Ambulates using a wheeled walker. Has shortness of breath related to history of lung cancer. COMPLICATIONS: None. Prevention strategies are up to date. REVIEW OF SYSTEMS: Depression and Mood: Is looking forward to camping at [place] this summer. Eyes: No recent vision changes. No headaches, no chest pain. She does have shortness of breath related to her history of lung cancer. No recent GI symptoms. Appetite is good. Sleep pattern is better. She has never scheduled a sleep study and she is interested in scheduling that in the early fall. Extremities: Some joint pain. PHYSICAL EXAMINATION: Appearance: She is extremely obese with a very very large central girth. She has class 3 obesity. Eyes: No retinopathy by green light exam. Neck: No thyromegaly or lymphadenopathy. Heart: Regular rate and rhythm. No murmurs. Lungs are clear to auscultation. Feet: Skin is normal. Pulses are normal. Neurologic: Normal sensation to 10 g of pressure. Lab done today, hemoglobin A1c result not available during office visit, at time of dictation was 7.9% for an estimated average glucose of 180, previously was 7.3%. IMPRESSION AND PLAN: Will continue Amaryl 4 mg one tablet a.m. and continue Januvia 100 mg daily and continue 32 units of Lantus q.p.m. Goal for this visit to next visit is to attempt weight loss. Gave her written information on a healthy meal plan with smaller portions. Her son lives with her. He has type 2 diabetes as well and obesity, and she is hoping that she will be able to help him lose 5-10 pounds. Blood pressure not atgoal, 152/78. Increased dose of LITZY inhibitor at today's office visit. Will recheck LDL at next office visit. Of this 30-minute office visit, I spent 29 minutes counseling with the patient in the following issues: Target blood glucose ranges, reviewing a healthy meal plan with increased intake of vegetables and fruits, she states her sister is an instructor for [employer], and given written information and reviewed blood pressure targets. Increased dose of LITZY inhibitor and reviewing cholesterol targets. Return to office in six months. Will check hemoglobin A1c, DLDL, microalbumin, and other labs that she is due for. documented in this encounter Plan of Treatment Upcoming Encounters Date Type Specialty Care Team Description 04/04/2022 Office Visit Dermatology Celena Salazar MD [facility] ER DR THERESE LEOS[place]DERMAT [place], [place] [address] (Wo rk) Scheduled Referrals Name Type Priority Associated Order Schedule Diagnoses Ambulatory referral Outpatient Referral Routine Diabetes Ordered: to Sleep Studies Hypertension 10/03/2010 Obesity documented as of this encounter Procedures Procedure Name Priority Date/Time Associated Comments Diagnosis VITAMIN D, Routine 10/03/2010 12:34 PM Diabetes Results for this 25-HYDROXY EDT procedure are i n the results section. TSH Routine 10/03/2010 12:34 PM Diabetes Results for this EDT procedure are i n the results section. LDL CHOLESTEROL, Routine 10/03/2010 12:34 PM Diabetes Resu lts for this DIRECT EDT procedure are i n the results section. HDL/CHOL PROFILE Routine 10/03/2010 12:34 PM Diabetes Resu lts for this EDT procedure are i n the results section. HEMOGLOBIN A1C STAT 10/03/2010 12:34 PM Diabetes Result s for this EDT procedure are i n the results section. HEPATIC FUNCTION Routine 10/03/2010 12:34 PM Diabetes Resu lts for this PANEL EDT procedure are i n the results section. documented in this encounter Results Microalbumin, urine, random (04/04/2011 11:42 AM EST) P athologist Signature U Creatinine 149 mg/dL CERNER MILLENNIUM U Albumin Conc, 4.5 mg/L CERNER Random MILLENNIUM Alb/Cr Ratio, 3 mcg/mg Cr CERNER Random MILLENNIUM Comment: Reference Range* Random collection (mcg/mg creatinine) Normal ?<30 Microalbuminuria ?? 30 - 300 Clinical Albuminuria ?? >300 *[place] Diabetes Association. Diabetic Nephropathy. Diabetes Care 1997;(Suppl 1):S24-S27 Exercise within 24 hour, infection, fe lester, CHF, marked hyperglycemia, and marked hypertension may elevate urinary albumin excretion over baseline values. Specimen Anatomical Collection Method Collection Time Receive d Time (Source) Location / / Volume Laterality Urine specimen 04/04/2011 11:42 1 (specimen) AM EST 11:54 AM EST Pratik Cee MD URINE ORDERABLES Performing Organization Address City/State/ZIP Code Phon e Number [address] CERNER MILLENNIUM Creatinine, urine, random (04/04/2011 11:42 AM EST) P athologist Signature U Creatinine 149 mg/dL CERNER MILLENNIUM Specimen Anatomical Collection Method Collection Time Receive d Time (Source) Location / / Volume Laterality Urine specimen 04/04/2011 11:42 1 (specimen) AM EST 11:54 AM EST Pratik Cee MD URINE ORDERABLES Performing Organization Address City/[facility]/ZIP [facility] [place] [address] CERNER MILLENNIUM (ABNORMAL) Vitamin B12 (04/04/2011 11:37 AM EST) P athologist Signature Vitamin B-12 1324 (H) 207 - 974 CERNER pg/mL MILLENNIUM Specimen Anatomical Collection Method Collection Time Receive d Time (Source) Location / / Volume Laterality Blood specimen 04/04/2011 11:37 1 (specimen) AM EST 11:41 AM EST Pratik Cee MD CHEMISTRY ORDERABLES Performing Organization Address City/[facility]/ZIP Code Phon e Number [address] [facility] LDL cholesterol, direct (04/04/2011 11:37 AM EST) athologist Signature LDL Chol 76 <=99 mg/dL [facility] Direct [facility] Comment: The National Cholesterol Education Progr am (NCEP) has set the following guidelines for LDL Cholesterol: Reference range: ?? Optimal: ?<100 mg/dL ?? Near Optimal/Above Optimal: ?? 100-1 29 mg/dL ?? Borderline high: ?130-159 mg/dL ?? High: ? 160-189 mg/dL ?? Very high: ?>gl=608 mg/dL ARIADNE 2001: 28519):[id number] Specimen Anatomical Collection Method Collection Time Receive d Time (Source) Location / / Volume Laterality Blood specimen 04/04/2011 11:37 1 (specimen) AM EST 11:41 AM EST Pratik Cee MD CHEMISTRY ORDERABLES Performing Organization Address City/[facility]/ZIP Code Phon e Nyla [address] [facility] HDL cholesterol (04/04/2011 11:37 AM EST) athologist Signature Chol, Total 142 <=199 mg/dL [facility] Comment: Recommendations of the NCEP Adult Treatm ent Panel for the following risk cutoff thresholds for the [place] populatio n: Desirable: <200 mg/dL Borderline High: 200-239 mg/dL High: > or = 240 mg/dL HDL 53 >=40 mg/dL [facility] MILLENNIUM Comment: Reference range: ??Low HDL: ?? < 40 mg/dL ??Normal: ?40-60 mg/dL ??Desirable: > 60 mg/dL ARIADNE 2001; 285(19):6709-5634 Chol/HDL Ratio 2.7 ratio CERNER MILLENNI UM Comment: A Cholesterol to HDL ratio below 4:1 is desirable. ??Studies suggest that increased CAD risk occurs at ratios abov e 5 for females and above 6 for men. ? [place] Heart Association ??(htt p://www.americanheart.org) ? Kathryn Int Med, 1994; 121:641 ? AM J Med, 1998; 105(1A):48S Specimen Anatomical Collection Method Collection Time Receive d Time (Source) Location / / Volume Laterality Blood specimen 04/04/2011 11:37 1 (specimen) AM EST 11:41 AM EST Pratik Cee MD CHEMISTRY ORDERABLES Performing Organization Address City/[facility]/ZIP Code Phon e Number [address] CERNER MILLENNIUM TSH (04/04/2011 11:37 AM EST) P athologist Signature TSH 3.17 0.27 - 4.20 CERNER mcIU/mL MILLENNIUM Specimen Anatomical Collection Method Collection Time Receive d Time (Source) Location / / Volume Laterality Blood specimen 04/04/2011 11:37 1 (specimen) AM EST 11:41 AM EST Pratik Cee MD CHEMISTRY ORDERABLES Performing Organization Address City/[facility]/ZIP [facility] Phon e Number [address] CERNER MILLENNIUM Vitamin D 25 hydroxy (04/04/2011 11:37 AM EST) P athologist Signature 25-Hydroxy D2 20 ng/mL CERNER MILLENNIUM Comment: Test Performed by: [place] [address] Briquette Maker: Josee Brandon, Ph. D. 25-Hydroxy D3 9.5 ng/mL [facility] Mello Comment: Test Performed by: [place] [address] Briquette Maker: Josee Brandon, Ph. D. 25-OH Vit D Total 30 ng/mL CERNER MILLE NNIUM Comment: -- REFERENCE VALUE -- 25-HYDROXY D TOTAL (D2+D3) Optimum levels in the normal population are 25-80 Test Performed by: [facility] [address], [place] [address] Briquette Maker: Josee Brandon, Ph. D. Specimen Anatomical Collection Method Collection Time Receive d Time (Source) Location / / Volume Laterality Blood specimen 04/04/2011 11:37 1 2:36 (specimen) AM EST PM EST Pratik Cee MD CHEMISTRY ORDERABLES Performing Organization Address City/State/ZIP [place] [address] JACINTO JEREZIUM (ABNORMAL) Hemoglobin A1c (04/04/2011 11:37 AM EST) Analysis Performed At Patho logist Time Signature Hemoglobin A1C 7.4 (H) 4.3 - 6.1 CERNER % MILLENNIUM Est Avg Gluc 166 mg/dL CERNER [facility] Comment: eAG equivalents for HbA1c percentages: HbA1c(%) ?eAG(mg/dL) 6.0 ?126 6.5 ?140 7.0 ?154 7.5 ?169 8.0 ?183 8.5 ?197 9.0 ?212 9.5 ?226 10.0 ? 240 Limitations: The eAG calculation has not been validated on women, individuals below 18 years old and above 70 years old, and individuals with hemoglobinopathies. Additional resources are available on e ADA website: ??http://professional.diabetes.org/gluc osecalculator.aspx Reference: Chevy PARTIDA, Jr J, Syed R, et al. ??Tr anslating the A1C assay into estimated average glucose values. ??Diabetes Care 2008:31(8):8591-4285. Specimen Anatomical Collection Method Collection Time Receive d Time (Source) Location / / Volume Laterality Blood specimen 04/04/2011 11:37 1 (specimen) AM EST 11:41 AM EST Pratik Cee MD CHEMISTRY ORDERABLES Performing Organization Address City/State/ZIP [place] [address] CERNER MILLENNIUM (ABNORMAL) Comprehensive metabolic panel (04/04/2011 11:37 AM EST) P athologist Signature Glucose Lvl 95 60 - 199 CERNER mg/dL MILLENNIUM Comment: Diabetes: >=200 mg/dL plus symp toms BUN 19 (H) 8 - 18 mg/dL CERNER MILLENNIUM Creatinine 1.02 0.70 - 1.20 mg/dL CERNER MILL ENNIUM Sodium 139 135 - 145 mmol/L CERNER BELLA NIUM Potassium 3.8 3.5 - 5.0 mmol/L CERNER BELLA NIUM Comment: Please note: ??Patients with WBC >100,00 0 may have falsely elevated Potassium levels. ??For accurate Potassium quantif ication in these patients send serum separator tube (gold top) for subsequent determinations. ??Contact the Clinical Chemistry Laboratory if there are any qu estions. Chloride 101 98 - 107 mmol/L CERNER MILLENN IUM CO2 30 22 - 31 mmol/L CERNER MILLENNI UM Anion Gap 8 5 - 15 mmol/L CERNER MILLENNIU M Calcium 9.6 8.5 - 10.5 mg/dL CERNER BELLA NIUM Total Protein 7.7 6.4 - 8.3 gm/dL CERNER MIL LENNIUM Albumin 3.9 3.2 - 5.2 gm/dL CERNER MILLENN IUM AST 11 0 - 30 unit/L CERNER MILLENNIU M ALT 13 0 - 30 unit/L CERNER MILLENNIU M Alk Phos 116 (H) 40 - 104 unit/L CERNER MILLENN IUM Total Bilirubin 0.2 0.2 - 1.3 mg/dL CERNER M ILLENNIUM Bili, Direct <0.1 0.0 - 0.3 mg/dL CERNER MILL ENNIUM Estimated GFR 55 (L) >=60 CERNER SOLITARIOIU M Comment: The National Kidney Disease Education Pr ogram (NKDEP) has recommended all laboratories report estimated GFR (eGFR) along with plasma creatinine measurements to assist you with recognit ion of early kidney disease. Caveats: ??Plasma creatinine should be a t steady-state (unchanged within the past week). For patient s multiply eGFR by 1.2. The MDRD equation has not been validated for pedi atric patients and is only valid for patients with age >= 18 years. At present, NKDEP does NOT recommend usi [...] kidney disease. References: http://nkdep.nih.gov/resources/NKDEP_Sug gestn4Labs_0606_508.pdf http://www.kidney.org/professionals/kls/ pdf/faq_gfr.pdf Specimen Anatomical Collection Method Collection Time Receive d Time (Source) Location / / Volume Laterality Blood specimen 04/04/2011 11:37 1 (specimen) AM EST 11:41 AM EST Pratik Cee MD CHEMISTRY ORDERABLES Performing Organization Address City/State/[place] [address] JACINTO JEREZIUM LDL cholesterol, direct (10/03/2010 12:34 PM EDT) athologist Signature LDL Chol 69 <=99 mg/dL [facility] Direct [facility] Comment: The National Cholesterol Education Progr am (NCEP) has set the following guidelines for LDL Cholesterol: Reference range: ?? Optimal: ?<100 mg/dL ?? Near Optimal/Above Optimal: ?? 100-1 29 mg/dL ?? Borderline high: ?130-159 mg/dL ?? High: ? 160-189 mg/dL ?? Very high: ?>fl=012 mg/dL ARIADNE 2001: 285(19):8536-9011 Specimen Anatomical Collection Method Collection Time Receive d Time (Source) Location / / Volume Laterality Blood specimen 10/03/2010 12:34 1 1:05 (specimen) PM EDT PM EDT Pratik Cee MD CHEMISTRY ORDERABLES Performing Organization Address City/State/ZIP [place] [address] [facility] HDL cholesterol (10/03/2010 12:34 PM EDT) P athologist Signature Chol, Total 143 <=199 mg/dL [facility] Comment: Recommendations of the NCEP Adult Treatm ent Panel for the following risk cutoff thresholds for the [place] popul[place] n: Desirable: <200 mg/dL Borderline High: 200-239 mg/dL High: > or = 240 mg/dL HDL 51 >=40 mg/dL [facility] Comment: Reference range: ??Low HDL: ?? < 40 mg/dL ??Normal: ?40-60 mg/dL ??Desirable: > 60 mg/dL ARIADNE 2001; 285(19):1326-0753 Chol/HDL Ratio 2.8 ratio CERNER MILLENNI UM Comment: A Cholesterol to HDL ratio below 4:1 is desirable. ??Studies suggest that increased CAD risk occurs at ratios abov e 5 for females and above 6 for men. ? [place] Heart Association ??(htt p://www.americanheart.org) ? Kathryn Int Med, 1994; 121:641 ? AM J Med, 1998; 105(1A):48S Specimen Anatomical Collection Method Collection Time Receive d Time (Source) Location / / Volume Laterality Blood specimen 10/03/2010 12:34 1 1:05 (specimen) PM EDT PM EDT Pratik Cee MD CHEMISTRY ORDERABLES Performing Organization Address City/[facility]/ZIP [facility] [place] [address] CERNER MILLENNIUM (ABNORMAL) Hepatic [...] Cee MD CHEMISTRY ORDERABLES Performing Organization Address City/[facility] [place] [address] CERNER MILLENNIUM (ABNORMAL) Vitamin D 25 hydroxy (10/03/2010 12:34 PM EDT) athologist Signature 25-Hydroxy D2 <4.0 ng/mL CERNER MILLENNIUM Comment: Test Performed by: [facility] [address], [place] [address] Briquette Maker: Josee Brandon, Ph. D. 25-Hydroxy D3 9.9 ng/mL CERNER MILLENNIU M Comment: Test Performed by: [facility] [place] [address] Briquette Maker: Josee Brandon, Ph. D. 25-OH Vit D Total 9.9 (L) ng/mL CERROMY PATEL NNIUM Comment: Interpretation: <10 (severe deficiency) -- REFERENCE VALUE -- 25-HYDROXY D TOTAL (D2+D3) Optimum levels in the normal population are 25-80 Test Performed by: [facility] [place] [address] Briquette Maker: Josee Brandon, Ph. D. Specimen Anatomical Collection Method Collection Time Receive d Time (Source) Location / / Volume Laterality Blood specimen 10/03/2010 12:34 1 1:59 (specimen) PM EDT PM EDT Pratik Cee MD CHEMISTRY ORDERABLES Performing Organization Address City/[facility]/ZIP Code Phon e Number [address] JACINTO JEREZIUM TSH (10/03/2010 12:34 PM EDT) P athologist Signature TSH 3.42 0.27 - 4.20 CERNER mcIU/mL [facility] Specimen Anatomical Collection Method Collection Time Receive d Time (Source) Location / / Volume Laterality Blood specimen 10/03/2010 12:34 1 1:05 (specimen) PM EDT PM EDT Pratik Cee MD CHEMISTRY ORDERABLES Performing Organization Address City/[facility] Phon e Number [address] CERROMY JEREZIUM (ABNORMAL) Hemoglobin A1c (10/03/2010 12:34 PM EDT) [...] into estimated average glucose values. ??Diabetes Care 2008:31(8):2496-7377. Specimen Anatomical Collection Method Collection Time Receive d Time (Source) Location / / Volume Laterality Blood specimen 10/03/2010 12:34 1 1:05 (specimen) PM EDT PM EDT Pratik Cee MD CHEMISTRY ORDERABLES Performing Organization Address City/State/ZIP [place] [address] [address] [facility] documented in this encounter Visit Diagnoses Diagnosis Diabetes Type II or unspecified type diabetes татьяна litus without mention of complication, not stated as uncontrolled Hypertension Unspecified essential hypertension Obesity Obesity, unspecified documented in this encounter Care Teams Leaded Glass Installer Relationship Specialty Start Date End Date Gerry Hackett MD PCP - General 03/14/10 06/18/17 [address] [place] [address] documented as of this encounter
--- OUTSIDE RECORDS SUMMARY | 2022-02-02 00:33 | XMS_ITS | Encounter Summary ---
:1950 Author Organization [facility] [place] [address] Care Team Providers Name Role Phone Gerry Hackett MD Primary Care Provider [phone] Reason for Visit Reason Onset Date Comments Diabetes 04/09/2011 Encounter Details Date Type Department Care Team Description 04/09/2011 Telephone Endocrinology at [facility] Diane Lewis APRN [facility] D [facility] [place] [address] ENDOCRINOLOGY DEPT. [phone] [place] [id number] (Wo rk) Social History Tobacco Use Types Packs/Day Years Used Date Former Smoker Quit: 04/04/19 99 Comments: stopped 14 years ago Alcohol Use Standard Drinks/Week Comments Not Asked 0 (1 standard drink = 0.6 oz pure alcoho l) Sex Assigned at Date Recorded Not on file documented as of this encounter Miscellaneous Notes Telephone Encounter - Nitza Pack LPN - 04/09/2011 2:53 PM EST @ 2:50 pm returning call to patient asking for Ha1c and hgb. Following results read to patient Entry Date 04/04/2011 Component Value Range & Units Status Hemoglobin A1C 7.4 (H) 4.3 - 6.1 % Final Entry Date 04/04/2011 Component Value Range & Units Status WBC 8.0 4.0 - 10.0 x10(3)/mcL Final RBC 3.94 3.93 - 5.22 x10(6)/mcL Final Hemoglobin 11.2 11.2 - 15.7 gm/dL Final documented in this encounter Plan of Treatment Upcoming Encounters Date Type Specialty Care Team Description 04/04/2022 Office Visit Dermatology Celena Salazar MD [facility] DR [address] [place], [place] [address] (Wo rk) documented as of this encounter Visit Diagnoses Not on filedocumented in this encounter Care Teams Sluice Tender Relationship Specialty Start Date End Date Gerry Hackett MD PCP - General 03/14/10 06/18/[address] [place] [address] documented as of this encounter
--- OUTSIDE RECORDS SUMMARY | 2022-02-02 00:33 | XMS_ITS | Encounter Summary ---
:1950 Author Organization [facility] [place] [address] Care Team Providers Name Role Phone Gerry Hackett MD Primary Care Provider [phone] Reason for Visit Reason Onset Date Comments Medication Refill 03/24/2012 Encounter Details Date Type Department Care Team Description 03/24/2012 Refill Endocrinology at [facility] Pratik Odell MD [facility] [place] [address] ENDOCRINOLOGY DEPT. [phone] [place], [place] [address] (Wo rk) Social History Tobacco [...] Visit Dermatology Celena Salazar MD [facility] ER [address] THERESE LE[place], [place] [address] (Wo rk) documented as of this encounter Visit Diagnoses Not on filedocumented in this encounter Care Teams Studio Producer Relationship Specialty Start Date End Date Gerry Hackett MD PCP - General 03/14/10 06/18/[address] [place] [address] documented as of this encounter
--- OUTSIDE RECORDS SUMMARY | 2022-02-02 00:33 | XMS_ITS | Encounter Summary ---
:1950 Author Organization [facility] [place] [address] Care Team Providers Name Role Phone Geryr Hackett MD Primary Care Provider [phone] Reason for Visit Reason Comments Diabetes Encounter Details Date Type Department Care Team Description 04/04/2011 Office Visit Endocrinology at [facility] C Diane Serra, Diabetes; [facility] CASH REGISTER SERVICER Hypertension; [facility] Diabetes mellitus; [place] [address] [facility] Vitamin D deficiency [phone] [address] [place] [id number] Social History Tobacco Use Types Packs/Day Years Used Date Former Smoker Quit: 04/04/19 99 Comments: stopped 14 years ago Alcohol Use Standard Drinks/Week Comments Not Asked 0 (1 standard drink = 0.6 oz pure alcoho l) Sex Assigned at Date Recorded Not on file documented as of this encounter Last Filed Vital Signs Vital Sign Reading Time Taken Comments Blood Pressure 142/91 04/04/2011 12:34 PM EST Pulse 93 04/04/2011 12:34 PM EST Temperature - - Respiratory Rate - - Oxygen Saturation - - Inhaled Oxygen Concentration - - Weight 144.5 kg (318 lb 9.6 oz) 04/04/2011 12:34 PM EST Height 167.6 cm (5' 6) 04/04/2011 12:34 PM EST Body Mass Index 51.42 04/04/2011 12:34 PM EST documented in this encounter Patient Instructions Patient InstructionsDiane Serra APRN - 04/04/2011 1:01 PM EST Steamed vegetables in the freezer Liquid can't believe it's butter spray increase lisinopril to 30 mg daily documented in this encounter Progress Notes Diane Serra APRN - 04/04/2011 4:12 PM EST OFFICE VISIT NOTE DATE OF VISIT: 04/04/2011 REASON FOR VISIT: Followup type 2 DM, in continued good overall control. Also, followup hypertension, not at goal and class III obesity. BRIEF HISTORY: Presents for followup. States her glucose levels have been okay. Discusses some high stress with family issues at times. DIABETES REGIMEN: Lantus 32 units q.p.m., Januvia 100 mg daily, and Amaryl 4 mg daily. Prevention strategies are up-to-date. She did have a flu vaccine. Does go to the Dentist. Takes an LITZY inhibitor. REVIEW OF SYSTEMS: Depression and Mood: Discusses some high stress regarding her mother's financial issues. Mother has dementia. Also discusses some high stress with her son's health issues. He has schizophrenia. Eyes: No recent vision changes. She does have some headaches recently. She discusses a situation where a head board from the bed fell on her head and she sustained some headaches that was approximately two weeks ago and she states H/A are occurring less and less. She does have shortness of breath related to her history of lung cancer and history of asthma. No recent GI symptoms. Appetite is very good. She states she was not able to follow weight watchers. States she knows that she emotionally eats. Extremities: Some joint pains. Ambulates with a wheeled walker. PHYSICAL EXAMINATION: Appearance: She is obese. Weight today is 318 pounds. She has lost 2 pounds since previous office visit. Blood pressure 142/91. Eyes: No retinopathy by green light exam. Neck: No thyromegaly or lymphadenopathy. Heart: Regular rate and rhythm. No murmurs. Lungs are clear to auscultation on right. History of left lung removed. Feet: Skin is normal. Pulses are normal. Neuro: Normal sensation to 10 g of pressure. Lab done today, hemoglobin A1c, result not available during office visit. At the time of dictation 7.4% for an estimated average glucose of 166, previous was 7.9%. IMPRESSION AND PLAN: Diabetes mellitus type 2. We reviewed 24-hour meal plan. States breakfast is a blueberry muffin. Lunch was low-fat chocolate milk and a pasta salad. Dinner was crackers and cheese. She states dinner varies quite a bit whether she feels like cooking or not. This week had pizza or a burger. She states she has also been drinking half bottle of regular devendra james. Does not like the taste of sugar-free sodas. Physical activity, not much. No change in diabetes regimen today. Prevention strategies are up-to-date. Goal for this visit to next visit is to try to eat more vegetables and fruits and eat smaller portions for desired weight loss. The patient states she has been given a lot of information about weight watchers because her sister teaches it, but she states she is just not able to follow it. Of this 30-minute office visit, I spent 29 minutes counseling with the patient on the following issues: Reviewing a healthy meal plan with increased intake of vegetables and fruits in smaller portions. Advised to report to PCP if headaches persist or get worse. Blood pressure not at goal. Will increase does of lisinopril to 30 mg daily. Return to office in six months. Will check hemoglobin A1c, BMP, and other labs that she is due for. Recent Results (from the past 72 hour(s)) COMPREHENSIVE METABOLIC PANEL (NON-FASTING) Component Value Range ??? Glucose Lvl 95 60 - 199 (mg/dL) ??? BUN 19 (*) 8 - 18 (mg/dL) ??? Creatinine 1.02 0.70 - 1.20 (mg/dL) ??? Sodium 139 135 - 145 (mmol/L) ??? Potassium 3.8 3.5 - 5.0 (mmol/L) ??? Chloride 101 98 - 107 (mmol/L) ??? CO2 30 22 - 31 (mmol/L) ??? Anion Gap 8 5 - 15 (mmol/L) ??? Calcium 9.6 8.5 - 10.5 (mg/dL) ??? Total Protein 7.7 6.4 - 8.3 (gm/dL) ??? Albumin 3.9 3.2 - 5.2 (gm/dL) ??? AST 11 0 - 30 (unit/L) ??? ALT 13 0 - 30 (unit/L) ??? Alk Phos 116 (*) 40 - 104 (unit/L) ??? Total Bilirubin 0.2 0.2 - 1.3 (mg/dL) ? ? Bili, Direct <0.1 0.0 - 0.3 (mg/dL) ? ? Estimated GFR 55 (*) >=60 HEMOGLOBIN A1C Component Value Range ??? Hemoglobin A1C 7.4 (*) 4.3 - 6.1 (%) ??? Est Avg Gluc 166 (mg/dL) VITAMIN D2 AND D3 25 HYDROXY Component Value Range ??? 25-Hydroxy D2-Tovar 20 (ng/mL) ??? 25-Hydroxy D3-Tovar 9.5 (ng/mL) ??? 25Hydrox D-Tovar 30 (ng/mL) TSH Component Value Range ??? TSH 3.17 0.27 - 4.20 (mcIU/mL) HDL/CHOL PROFILE Component Value Range ? ? Chol, Total 142 <=199 (mg/dL) ? ? HDL 53 >=40 (mg/dL) ??? Chol/HDL Ratio 2.7 (ratio) LDL CHOLESTEROL, DIRECT Component Value Range ? ? LDL Chol Direct 76 <=99 (mg/dL) VITAMIN B12 Component Value Range ??? Vitamin B-12 1324 (*) 207 - 974 (pg/mL) CBC (WITH DIFF) Component Value Range ??? WBC 8.0 4.0 - 10.0 (x10(3)/mcL) ??? RBC 3.94 3.93 - 5.22 (x10(6)/mcL) ??? Hemoglobin 11.2 11.2 - 15.7 (gm/dL) ??? Hematocrit 35.5 34.0 - 45.0 (%) ??? MCV 90.1 79.0 - 94.0 (fL) ??? MCH 28.4 26.6 - 32.2 (pg) ??? MCHC 31.5 (*) 32.0 - 36.5 (gm/dL) ??? Platelets 273 145 - 370 (x10(3)/mcL) ??? RDWSD 47.1 (*) 35.0 - 46.0 (fL) ??? RDWCV 14.2 10.9 - 14.4 (%) ??? MPV 10.4 9.0 - 12.0 (fL) DIFFERENTIAL, AUTOMATED Component Value Range ??? Neutrophils % 74.0 (*) 34.0 - 71.0 (%) ??? Neutr Abs (ANC) 5.94 1.50 - 6.30 (x10(3)/mcL) ??? Lymphocytes % 18.0 (*) 19.0 - 53.0 (%) ??? Lymphocytes Abs 1.4 1.0 - 3.6 (x10(3)/mcL) ??? Monocytes % 5.2 4.0 - 13.0 (%) ??? Monocyte Abs 0.4 0.2 - 1.0 (x10(3)/mcL) ??? Eosinophils % 2.0 0.0 - 7.0 (%) ??? Eosinophils Abs 0.2 0.0 - 0.5 (x10(3)/mcL) ??? Basophils % 0.6 0.0 - 2.0 (%) ??? Basophils Abs 0.0 0.0 - 0.2 (x10(3)/mcL) ??? Immature Gran % 0.20 0.00 - 0.66 (%) ??? Shanae Gran Abs 0.02 0.00 - 0.05 (x10(3)/mcL) CREATININE, URINE, RANDOM Component Value Range ??? U Creatinine 149 (mg/dL) MICROALBUMIN, URINE, RANDOM Component Value Range ??? U Creatinine 149 (mg/dL) ??? U Ran Malb Conc 4.5 (mg/L) ??? U Ran Malb Calc 3 (mcg/mg Cr) documented in this encounter Plan of Treatment Upcoming Encounters Date Type Specialty Care Team Description 04/04/2022 Office Visit Dermatology Celena Salazar MD [facility] [address], [place] [address] (Wo rk) documented as of this encounter Procedures Procedure Name Priority Date/Time Associated Comments Diagnosis U ALBUMIN/CRE RATIO Routine 04/04/2011 11:42 Diabetes Results for this AM EST Hypertension procedure are i n the results section. CREATININE, URINE, Routine 04/04/2011 11:42 Diabetes Results for this RANDOM AM EST Hypertension procedure are i n the results section. DIFFERENTIAL, Routine 04/04/2011 11:37 Results fo r this AUTOMATED AM EST procedure are i n the results section. VITAMIN D, 25-HYDROXY Routine 04/04/2011 11:37 Diabetes Re sults for this AM EST procedure are i n the results section. CBC (WITH DIFF) Routine 04/04/2011 11:37 Diabetes mellitus Res ults for this AM EST procedure are i n the results section. TSH Routine 04/04/2011 11:37 Diabetes Results for this AM EST procedure are i n the results section. LDL CHOLESTEROL, Routine 04/04/2011 11:37 Diabetes Results for this DIRECT AM EST procedure are i n the results section. HDL/CHOL PROFILE Routine 04/04/2011 11:37 Diabetes Results for this AM EST procedure are i n the results section. HEMOGLOBIN A1C Routine 04/04/2011 11:37 Diabetes Results f or this AM EST procedure are i n the results section. VITAMIN B12 Routine 04/04/2011 11:37 Diabetes Results for this AM EST procedure are i n the results section. COMPREHENSIVE Routine 04/04/2011 11:37 Diabetes Results for this METABOLIC PANEL AM EST Hypertension procedure ar e in (NON-FASTING) the results section. documented in this encounter Results (ABNORMAL) Vitamin B12 (10/04/2011 12:16 PM EDT) athologist Signature Vitamin B-12 1122 (H) 207 - 974 CERNER pg/mL MILLENNIUM Specimen Anatomical Collection Method Collection Time Receive d Time (Source) Location / / Volume Laterality Blood specimen 10/04/2011 12:16 2 (specimen) PM EDT 12:28 PM EDT Resulting Agency Comment Spec In Lab Pratik Cee MD CHEMISTRY ORDERABLES Performing Organization Address City/State/[place] [address] CERNER MILLENNIUM VIT D Total 25 Hydroxy (10/04/2011 12:16 PM EDT) athologist Signature 25-OH Vit D 33 30 - 100 CERNER Total ng/mL MILLENNIUM Comment: Deficient <10 ng/mL Insufficient 10 to 29 ng/mL Sufficient 30 to 100 ng/mL Potential Intoxication >100 ng/mL According to the [place] National Osteoporosi s Foundation, Vitamin D concentrations >30 ng/mL are sufficient to protect bone health. ??The National Kidney Foundation has similarly stated that pat ients with Vitamin D concentrations <30ng/mL should be considered to be insu fficient or deficient. http://www.kidney.org/professionals/KDOQ I/guidelines_bone/Guide7.htm http://www.nof.org/professionals/clinica l-guidelines The IDS iSYS Vitamin D Immunoassay detec ts both 25-OH Vitamin D2 and 25-OH Vitamin D3, but only a total Vitamin D c oncentration is reported. Please note, the performing location for this test has changed. ??As of 05/29/2011 the Vitamin D Total, 25 Tenafly xy assays are being analyzed by the [facility]. ??There is NO CHANGE in units. ??Please contact the chemistry laboratory at [phone] with ana navarro. Specimen Anatomical Collection Method Collection Time Receive d Time (Source) Location / / Volume Laterality Blood specimen 10/04/2011 12:16 2 (specimen) PM EDT 12:28 PM EDT Resulting Agency Comment Spec In Lab Pratik Cee MD CHEMISTRY ORDERABLES Performing Organization Address City/State/[place] [address] CERNER MILLENNIUM (ABNORMAL) Hemoglobin A1c (10/04/2011 12:16 PM EDT) Analysis Performed At Path logist Time Signature Hemoglobin A1C 7.6 (H) 4.3 - 6.1 CERNER % MILLENNIUM Est Avg Gluc 171 mg/dL CERNER MILLENNIUM Comment: eAG equivalents for [...] website: ??http://professional.diabetes.org/gluc osecalculator.aspx Reference: Chevy PARTIDA, Jr Spencer, Syed R, et al. ??Tr anslating the A1C assay into estimated average glucose values. ??Diabetes Care 2008:31(8):3103-6643. Specimen Anatomical Collection Method Collection Time Receive d Time (Source) Location / / Volume Laterality Blood specimen 10/04/2011 12:16 2 (specimen) PM EDT 12:28 PM EDT Resulting Agency Comment Spec In Lab Pratik Cee MD CHEMISTRY ORDERABLES Performing Organization Address City/State/ZIP Code Phon e Number [place] [phone] CERNER MILLENNIUM (ABNORMAL) Basic Metabolic Panel (non-fasting) (10/04/2011 12:16 PM EDT) athologist Signature Glucose Lvl 128 60 - 199 CERNER mg/dL MILLENNIUM Comment: Diabetes: >=200 mg/dL plus symp toms BUN 22 (H) 8 - 18 mg/dL CERNER MILLENNIUM Creatinine 0.96 0.70 - 1.20 mg/dL CERNER MILL ENNIUM Comment: Please note that the pediatric reference intervals supplied above were not validated at [facility]. Results from pediatri c patients should be interpreted in conjunction to the patient's age, height and muscle mass. Sodium 136 135 - 145 mmol/L CERNER BELLA NIUM Potassium 4.2 3.5 - 5.0 mmol/L CERNER BELLA NIUM Comment: Please note: ??Patients with WBC >100,00 0 may have falsely elevated Potassium levels. ??For accurate Potassium quantif ication in these patients send serum separator tube (gold top) for subsequent determinations. ??Contact the Clinical Chemistry Laboratory if there are any qu estions. Chloride 98 98 - 107 mmol/L CERNER MILLENN IUM CO2 28 22 - 31 mmol/L CERNER MILLENNI UM Anion Gap 10 5 - 15 mmol/L CERNER MILLENNIU M Calcium 10.1 8.5 - 10.5 mg/dL CERNER BELLA NIUM Estimated GFR 59 (L) >=60 CERNER MILLENNIU M Comment: The [...] Location / / Volume Laterality Blood specimen 10/04/2011 12:16 2 (specimen) PM EDT 12:28 PM EDT Resulting Agency Comment Spec In Lab Pratik Cee MD CHEMISTRY ORDERABLES Performing Organization Address City/[facility] [place] [address] CERNER MILLENNIUM Microalbumin, urine, random (04/04/2011 11:42 AM EST) P athologist Signature U Creatinine 149 mg/dL CERNER MILLENNIUM U Albumin Conc, 4.5 mg/L CERNER Random MILLENNIUM Alb/Cr Ratio, 3 mcg/mg Cr CERNER Random MILLENNIUM Comment: Reference Range* Random collection (mcg/mg creatinine) Normal ?<30 Microalbuminuria ?? 30 - 300 Clinical Albuminuria ?? >300 *[place] Diabetes Association. Diabetic Nephropathy. Diabetes Care 1997;(Suppl 1):S24-S27 Exercise within 24 hour, infection, fe lester, CHF, marked hyperglycemia, and marked hypertension may elevate urinary albumin excretion over baseline values. Specimen Anatomical Collection Method Collection Time Receive d Time (Source) Location / / Volume Laterality Urine specimen 04/04/2011 11:42 1 (specimen) AM EST 11:54 AM EST Pratik Cee MD URINE ORDERABLES Performing Organization Address City/[facility] [place] [address] CERNER MILLENNIUM Creatinine, urine, random (04/04/2011 11:42 AM EST) P athologist Signature U Creatinine 149 mg/dL CERNER MILLENNIUM Specimen Anatomical Collection Method Collection Time Receive d Time (Source) Location / / Volume Laterality Urine specimen 04/04/2011 11:42 1 (specimen) AM EST 11:54 AM EST Pratik Cee MD URINE ORDERABLES Performing Organization Address City/State/ZIP [place] [address] CERNER MILLENNIUM (ABNORMAL) DIFFERENTIAL, AUTOMATED (04/04/2011 11:37 AM EST) [facility] gist Method Time Signature Neutrophils % 74.0 (H) 34.0 - CERNER 71.0 % MILLENNIUM Neutr Abs (ANC) 5.94 1.50 - CERNER 6.30 MILLENNIUM x10(3)/mc L Lymphocytes % 18.0 (L) 19.0 - CERNER 53.0 % MILLENNIUM Lymphocytes Abs 1.4 1.0 - 3.6 CERNER x10(3)/mc MILLENNIUM L Monocytes % 5.2 4.0 - CERNER 13.0 % MILLENNIUM Monocyte Abs 0.4 0.2 - 1.0 CERNER x10(3)/mc MILLENNIUM L Eosinophils % 2.0 0.0 - 7.0 CERNER % MILLENNIUM Eosinophils Abs 0.2 0.0 - 0.5 CERNER x10(3)/mc MILLENNIUM L Basophils % 0.6 0.0 - 2.0 CERNER % MILLENNIUM Basophils Abs 0.0 0.0 - 0.2 CERNER x10(3)/mc MILLENNIUM L Immature Gran % 0.20 0.00 - CERNER 0.66 % MILLENNIUM Comment: Immature granulocytes(IG's)percentage an d absolute count will include metamyelocytes, myelocytes, and promyelo cytes. Blood smears from CBCs yielding IG's will be scanned manually for concor dance. If this scan disagrees with the automated IG or if promyelocytes are not ed, a manual differential will be performed. Shanae Gran Abs 0.02 0.00 - 0.05 x10(3)/mcL CER NER MILLENNIUM Specimen Anatomical Collection Method Collection Time Receive d Time (Source) Location / / Volume Laterality Blood specimen 04/04/2011 11:37 1 (specimen) AM EST 11:41 AM EST Pratik Cee MD HEMATOLOGY ORDERABLES Performing Organization Address City/State/ZIP Code Phon e Number [place] [phone] CERNER MILLENNIUM (ABNORMAL) CBC (with Diff) (04/04/2011 11:37 AM EST) athologist Signature WBC 8.0 4.0 - 10.0 CERNER x10(3)/mcL MILLENNIUM RBC 3.94 3.93 - CERNER 5.22 MILLENNIUM x10(6)/mcL Hemoglobin 11.2 11.2 - CERNER 15.7 gm/dL MILLENNIUM Hematocrit 35.5 34.0 - CERNER 45.0 % MILLENNIUM MCV 90.1 79.0 - CERNER 94.0 fL MILLENNIUM MCH 28.4 26.6 - CERNER 32.2 pg MILLENNIUM MCHC 31.5 (L) 32.0 - CERNER 36.5 gm/dL MILLENNIUM Platelets 273 145 - 370 CERNER x10(3)/mcL MILLENNIUM RDWSD 47.1 (H) 35.0 - CERNER 46.0 fL MILLENNIUM RDWCV 14.2 10.9 - CERNER 14.4 % MILLENNIUM MPV 10.4 9.0 - 12.0 CERNER fL MILLENNIUM Specimen Anatomical Collection Method Collection Time Receive d Time (Source) Location / / Volume Laterality Blood specimen 04/04/2011 11:37 1 (specimen) AM EST 11:41 AM EST Pratik Cee MD HEMATOLOGY ORDERABLES Performing Organization Address City/State/ZIP Code Phon e Number [place] [phone] [facility] MILL[facility]UM (ABNORMAL) Vitamin B12 (04/04/2011 11:37 AM EST) athologist Signature Vitamin B-12 1324 (H) 207 - 974 CERNER pg/mL MILLENNIUM Specimen Anatomical Collection Method Collection Time Receive d Time (Source) Location / / Volume Laterality Blood specimen 04/04/2011 11:37 1 (specimen) AM EST 11:41 AM EST Pratik Cee MD CHEMISTRY ORDERABLES Performing Organization Address City/[facility]/ZIP Code Phon e Number [place] [phone] [facility] LDL cholesterol, direct (04/04/2011 11:37 AM EST) athologist Signature LDL Chol 76 <=99 mg/dL [facility] Comment: The National Cholesterol Education Progr am (NCEP) has set the following guidelines for LDL Cholesterol: Reference range: ?? Optimal: ?<100 mg/dL ?? Near Optimal/Above Optimal: ?? 100-1 29 mg/dL ?? Borderline high: ?130-159 mg/dL ?? High: ? 160-189 mg/dL ?? Very high: ?>hr=708 mg/dL ARIADNE 2001: 285(19):2709-5453 Specimen Anatomical Collection Method Collection Time Receive d Time (Source) Location / / Volume Laterality Blood specimen 04/04/2011 11:37 1 (specimen) AM EST 11:41 AM EST Pratik Cee MD CHEMISTRY ORDERABLES Performing Organization Address City/State/ZIP Code Phon e Nyla DELGADILLO [address] [facility] HDL cholesterol (04/04/2011 11:37 AM EST) athologist Signature Chol, Total 142 <=199 mg/dL [facility] Comment: Recommendations of the NCEP Adult Treatm ent Panel for the following risk cutoff thresholds for the [place] populatio n: Desirable: <200 mg/dL Borderline High: 200-239 mg/dL High: > or = 240 mg/dL HDL 53 >=40 mg/dL [facility] Comment: Reference range: ??Low HDL: ?? < 40 mg/dL ??Normal: ?40-60 mg/dL ??Desirable: > 60 mg/dL ARIADNE 2001; 285(19):1635-4154 Chol/HDL Ratio 2.7 ratio CERNER MILLENNI UM Comment: A Cholesterol to HDL ratio below 4:1 is desirable. ??Studies suggest that increased CAD risk occurs at ratios abov e 5 for females and above 6 for men. ? [place] Heart Association ??(htt p://www.americanheart.org) ? Kathryn Int Med, 1994; 121:641 ? AM J Med, 1998; 105(1A):48S Specimen Anatomical Collection Method Collection Time Receive d Time (Source) Location / / Volume Laterality Blood specimen 04/04/2011 11:37 1 (specimen) AM EST 11:41 AM EST Pratik Cee MD CHEMISTRY ORDERABLES Performing Organization Address [facility]/ZIP Code Phon e Number [address] CERNER MILLENNIUM TSH (04/04/2011 11:37 AM EST) athologist Signature TSH 3.17 0.27 - 4.20 CERNER mcIU/mL [facility] Specimen Anatomical Collection Method Collection Time Receive d Time (Source) Location / / Volume Laterality Blood specimen 04/04/2011 11:37 1 (specimen) AM EST 11:41 AM EST Pratik Cee MD CHEMISTRY ORDERABLES Performing Organization Address City/[facility] Phon e Number [address] [facility] MILLENNIUM Vitamin D 25 hydroxy (04/04/2011 11:37 AM EST) athologist Signature 25-Hydroxy D2 20 ng/mL [facility] Comment: Test Performed by: [facility] [address] [address] Grinder Operator Automatic: Josee Brandon, Ph. D. 25-Hydroxy D3 9.5 ng/mL [facility] MILLENNIU M Comment: Test Performed by: [facility] [place] [id number] Grinder Operator Automatic: Josee Brandon, Ph. D. 25-OH Vit D Total 30 ng/mL [facility] MILL NNIUM Comment: -- REFERENCE VALUE -- 25-HYDROXY D TOTAL (D2+D3) Optimum levels in the normal population are 25-80 Test Performed by: [facility] [address], [place] [address] Grinder Operator Automatic: Josee Brandon, Ph. D. Specimen Anatomical Collection Method Collection Time Receive d Time (Source) Location / / Volume Laterality Blood specimen 04/04/2011 11:37 1 2:36 (specimen) AM EST PM EST Pratik Cee MD CHEMISTRY ORDERABLES Performing Organization Address City/State/Z[place] [address] CERNER MILLENNIUM (ABNORMAL) Hemoglobin A1c (04/04/2011 11:37 AM EST) Analysis Performed At Patho logist Time Signature Hemoglobin A1C 7.4 (H) 4.3 - 6.1 CERNER % MILLENNIUM Est Avg Gluc 166 mg/dL CERNER MILLENNIUM Comment: eAG equivalents for [...] into estimated average glucose values. ??Diabetes Care 2008:31(8):9808-3779. Specimen Anatomical Collection Method Collection Time Receive d Time (Source) Location / / Volume Laterality Blood specimen 04/04/2011 11:37 1 (specimen) AM EST 11:41 AM EST Pratik Cee MD CHEMISTRY ORDERABLES Performing Organization Address City/State/ZIP Code Phon e Number [place] [phone] CERNER MILLENNIUM (ABNORMAL) Comprehensive [...] MILL ENNIUM Estimated GFR 55 (L) >=60 JACINTO SHERIDANJAKE Riaz Comment: The National Kidney Disease Education Pr [...] Organization Address City/State/ZIP Code Phon e Number [place] [phone] [facility] documented in this encounter Visit Diagnoses Diagnosis Diabetes Type II or unspecified type diabetes татьяна litus without mention of complication, not stated as uncontrolled Hypertension Unspecified essential hypertension Diabetes mellitus Type II or unspecified type diabetes татьяна litus without mention of complication, not stated as uncontrolled Vitamin D deficiency Unspecified vitamin D deficiency documented in this encounter Care Teams General Scrap Worker Relationship Specialty Start Date End Date Gerry Hackett MD PCP - General 03/14/10 06/18/[address] [place] [address] documented as of this encounter
--- OUTSIDE RECORDS SUMMARY | 2022-02-02 00:33 | XMS_ITS | Encounter Summary ---
:1950 Author Organization [facility] Address [facility] [place] [address] Care Team Providers Name Role Phone Gerry Hackett MD Primary Care Provider [phone] Encounter Details Date Type Department Care Team Description 01/07/2012 Orders Only Hematology and Ochoa Harrell MD Lung cancer (Primary Oncology at [facility] Dx) [facility] DR [address]shaw HEMATOLOGY/[place] [address] Y DEPT. [phone] [place], [place] [address] Social History Tobacco Use Types [...] Celena Salazar MD [facility] ER [address] [place], [place] [address] (Wo rk) documented as of this encounter Results (ABNORMAL) D-Dimer, Quantitative (08/26/2012 1:59 PM EDT) P athologist Signature D-Dimer, Quant 944 (H) 0 - 500 CERNER FEU ng/ml [facility] Comment: The D-Dimer assay is used [...] Location / / Volume Laterality Blood specimen 08/26/2012 1:59 PM 013 2:03 (specimen) EDT PM EDT Resulting Agency Comment Spec In Lab Ochoa Harrell MD HEMATOLOGY ORDERABLES Performing Organization Address City/[facility] [place] [address] CERNER MILLENNIUM Lactate Dehydrogenase (08/26/2012 1:59 PM EDT) athologist Signature LDH 167 110 - 220 CERNER unit/L MILLENNIUM Specimen Anatomical Collection Method Collection Time Receive d Time (Source) Location / / Volume Laterality Blood specimen 08/26/2012 1:59 PM 013 2:03 (specimen) EDT PM EDT Resulting Agency Comment Spec In Lab Ochoa Harrell MD CHEMISTRY ORDERABLES Performing Organization Address City/[facility] Phon e Number [address] CERNER MILLENNIUM (ABNORMAL) Comprehensive metabolic panel (non-fasting) (08/26/2012 1:59 PM EDT) athologist Signature Glucose Lvl 179 60 - 199 CERNER mg/dL MILLENNIUM Comment: Diabetes: >=200 mg/dL plus symp toms BUN 17 8 - 18 mg/dL CERNER MILLENNIUM Creatinine 1.05 0.70 - 1.20 mg/dL CERNER MILL ENNIUM Comment: Please note that the pediatric reference intervals supplied above were not validated at [facility]. Results from pediatri c patients should [...] 30 unit/L CERNER MILLENNIU M Alk Phos 105 (H) 40 - 104 unit/L CERNER MILLENN IUM Total Bilirubin 0.2 0.2 - 1.3 mg/dL CERNER M ILLENNIUM Bili, Direct <0.1 0.0 - 0.3 mg/dL CERNER MILL ENNIUM Estimated GFR 53 (L) >=60 CERNER MILLENNIU M Comment: This [...] Location / / Volume Laterality Blood specimen 08/26/2012 1:59 PM 013 2:03 (specimen) EDT PM EDT Resulting Agency Comment Spec In Lab Ochoa Harrell MD CHEMISTRY ORDERABLES Performing Organization Address City/State/ZIP Code Phon e Number [place] [phone] CERNER MILLENNIUM (ABNORMAL) CBC (with Diff) (08/26/2012 1:59 PM EDT) P athologist Signature WBC 8.4 4.0 - 10.0 CERNER x10(3)/mcL MILLENNIUM RBC 3.91 (L) 3.93 - CERNER 5.22 MILLENNIUM x10(6)/mcL Hemoglobin 11.2 11.2 - CERNER 15.7 gm/dL MILLENNIUM Hematocrit 36.0 34.0 - CERNER 45.0 % MILLENNIUM MCV 92.1 79.0 - CERNER 94.0 fL MILLENNIUM MCH 28.6 26.6 - CERNER 32.2 pg MILLENNIUM MCHC 31.1 (L) 32.0 - CERNER 36.5 gm/dL MILLENNIUM Platelets 291 145 - 370 CERNER x10(3)/mcL MILLENNIUM RDWSD 48.0 (H) 35.0 - CERNER 46.0 fL MILLENNIUM RDWCV 14.4 10.9 - CERNER 14.4 % MILLENNIUM MPV 10.3 9.0 - 12.0 CERNER fL MILLENNIUM Specimen Anatomical Collection Method Collection Time Receive d Time (Source) Location / / Volume Laterality Blood specimen 08/26/2012 1:59 PM 013 2:03 (specimen) EDT PM EDT Resulting Agency Comment Spec In Lab Ochoa Harrell MD HEMATOLOGY ORDERABLES Performing Organization Address City/State/[place] [address] CERNER MILLENNIUM documented in this encounter Visit Diagnoses Diagnosis Lung cancer - Primary Malignant neoplasm of bronchus and lung, unspecified site documented in this encounter Care Teams Information Coordinator Relationship Specialty Start Date End Date Gerry Hackett MD PCP - General 03/14/10 06/18/17 [address] [place] [address] documented as of this encounter
--- OUTSIDE RECORDS SUMMARY | 2022-02-02 00:33 | XMS_ITS | Encounter Summary ---
:1950 Author Organization [facility] [place] [address] Care Team Providers Name Role Phone Gerry Hackett MD Primary Care Provider [phone] Encounter Details Date Type Department Care Team Description 08/26/2012 Hospital Encounter Laboratory CLINIC, DR CON[facility] Ochoa Harrell MD [facility] HEMATOLOGY/[place] [address] [place] [address] Social History Tobacco Use Types Packs/Day [...] pramoxine (PROCTOFOAM) 1 % 0 0 foam lisinopril Take 40 mg by mouth 0 12/29 (PRINIVIL;ZESTRIL) 40 mg daily. tablet insulin glulisine (APIDRA Inject 6-10 Units 15 mL 12 11/201206/22/2014 SOLOSTAR) 100 unit/mL pen subcutaneously 2 injection times daily (before meals). Calcium 220 mg capsule Take 250 mg by mouth 0 12/04/2012 daily. fluticasone-salmeterol Inhale 1 puff into 0 07/27/2019 [...] (JANUVIA) 100 0 03/07/2010 01/14/2017 mg tablet Insulin Glargine (LANTUS 0 03/07/2010 12/04/2012 SOLOSTAR) 100 unit/mL (3 mL) InPn documented as of this encounter Plan of Treatment Upcoming Encounters Date Type Specialty Care Team Description 04/04/2022 Office Visit Dermatology Celena Salazar MD [facility] ER DR THERESE LEOS[address]DERMAT [place], [place] [address] (Wo rk) documented as of this encounter Visit Diagnoses Not on filedocumented in this encounter Care Teams Boatbuilder Supervisor Relationship Specialty Start Date End Date Gerry Hackett MD PCP - General 03/14/10 06/18/[address] [place] [address] documented as of this encounter
--- OUTSIDE RECORDS SUMMARY | 2022-02-02 00:33 | XMS_ITS | Encounter Summary ---
:1950 Author Organization [facility] Address [address] [place] [address] Care Team Providers Name Role Phone Gerry Hackett MD Primary Care Provider [phone] Reason for Visit Reason Comments Diabetes Encounter Details Date Type Department Care Team Description 10/04/2011 Office Visit Endocrinology at [facility] Diane Lewis Hypertension; [facility] DARCI [place] Diabetes mellitus; [facility] Vitamin D deficiency; [place] [address] Hyperlipidemia [phone] [place] [address] Social History Tobacco Use Types Packs/Day Years Used Date Former Smoker Quit: 04/04/19 99 Comments: stopped 14 years ago Alcohol Use Standard Drinks/Week Comments Not Asked 0 (1 standard drink = 0.6 oz pure alcoho l) Sex Assigned at Date Recorded Not on file documented as of this encounter Last Filed Vital Signs Vital Sign Reading Time Taken Comments Blood Pressure 157/86 10/04/2011 1:04 PM EDT Pulse 96 10/04/2011 1:04 PM EDT Temperature - - Respiratory Rate 20 10/04/2011 1:04 PM EDT Oxygen Saturation - - Inhaled Oxygen Concentration - - Weight 146.9 kg (323 lb 12.8 oz) 10/04/2011 1:04 PM EDT Height 167.6 cm (5' 6) 10/04/2011 1:04 PM EDT Body Mass Index 52.26 10/04/2011 1:04 PM EDT documented in this encounter Patient Instructions Patient InstructionsDiane Serra APRN - 10/04/2011 1:26 PM EDT Schedule sleep study Attempt 5-10 lb weight loss documented in this encounter Progress Notes Diane Serra APRN - 10/04/2011 1:44 PM EDT DATE OF VISIT: 10/04/2011 REASON FOR VISIT: Followup type 2 DM, in continued fair control. Also, followup hypertension, hyperlipidemia, and class III obesity. BRIEF HISTORY: Presents and states she is trying to stop drinking devendra james, so she is drinking orange juice instead. DIABETES REGIMEN: Lantus SoloSTAR pen 32 units q.p.m., Januvia 100 mg daily, glimepiride 4 mg in a.m. COMPLICATIONS: None. PAST MEDICAL HISTORY: Significant for lung cancer with lung removal. 24-HOUR MEAL PLAN: Breakfast is usually an Belarusian muffin except she states today she had some mini doughnuts. Morning snack is a protein either pork or hot dog. Lunch has been having Ritz crackers and cream cheese. Dinner was Lo Mein noodles and shrimp. States she might have [place] fried chicken for lunch today. Evening snack is a small ice cream cone. Physical activity not much. Ambulates using a wheeled walker and has oxygen p.r.n. Prevention strategies are up-to-date. She takes an aspirin and a statin. She was taking lisinopril, but it is not listed in today's medications. We will check at next office visit. Has an annual dilated eye exam. We will check when her last dentist appointment was. REVIEW OF SYSTEMS: Depression and Mood: States the anniversary of her 's is a hard time of year, it has been three years since he . She is looking forward to doing some camping this summer. Eyes: Notices occasional blurriness. No recent headaches. No chest pain. She does have shortness of breath related to lung removal. No recent GI symptoms. Appetite is very good. Sleep Pattern: She knows she is at high risk for sleep apnea, but she has never had a sleep study. She states she is considering doing one closer to home in [facility]. Extremities: Has hip pain and knee pain related to arthritis. PHYSICAL EXAMINATION: Appearance: She is obese with a very large central girth. Weight today 323 pounds, same as at previous office visit. Eyes: No retinopathy by green light exam. Neck: No thyromegaly or lymphadenopathy. Heart: Regular rate and rhythm. No murmurs. Lungs: No sounds on left, decreased sounds on right. Feet: Skin is normal. Pulses are normal. Neuro: Normal sensation to 10 g of pressure. LAB DONE TODAY: Hemoglobin A1c 7.6%. SBGM 0 to 1 time a day. IMPRESSION AND PLAN: Diabetes mellitus type 2, in good/fair overall control. Advised the patient to work on attempting 5-to 10-pound weight loss. We reviewed a healthy meal plan with smaller portions and increased servings of vegetables. She discusses how worried she is about her son, who lives with her, who has schizophrenia. This was a 30-minute office visit with 29 minutes spent counseling with the patient in the management of glucose levels. Advised the patient that if she is going to have juice to have no more than 4 ounces and filled the rest of the glass with water, but it is preferable to eat the fruit. Blood pressure borderline high today. We will increase dose of antihypertensive medication in the next office visit, if not underwent 30/80. Return to office in six months. Will check hemoglobin A1c and other labs that she is due for. Recent Results (from the past 72 hour(s)) BASIC METABOLIC PANEL (NON-FASTING) Component Value Range ??? Glucose Lvl 128 60 - 199 (mg/dL) ??? BUN 22 (*) 8 - 18 (mg/dL) ??? Creatinine 0.96 0.70 - 1.20 (mg/dL) ??? Sodium 136 135 - 145 (mmol/L) ??? Potassium 4.2 3.5 - 5.0 (mmol/L) ??? Chloride 98 98 - 107 (mmol/L) ??? CO2 28 22 - 31 (mmol/L) ??? Anion Gap 10 5 - 15 (mmol/L) ??? Calcium 10.1 8.5 - 10.5 (mg/dL) ? ? Estimated GFR 59 (*) >=60 HEMOGLOBIN A1C Component Value Range ??? Hemoglobin A1C 7.6 (*) 4.3 - 6.1 (%) ??? Est Avg Gluc 171 (mg/dL) VIT D TOTAL 25 HYDROXY Component Value Range ??? 25-OH Vit D Total 33 30 - 100 (ng/mL) VITAMIN B12 Component Value Range ??? Vitamin B-12 1122 (*) 207 - 974 (pg/mL) documented in this encounter Plan of Treatment Upcoming Encounters Date Type Specialty Care Team Description 04/04/2022 Office Visit Dermatology Celena Salazar MD [facility] ER DR THERESE LEOS[place], [place] [address] (Wo rk) documented as of this encounter Procedures Procedure Name Priority Date/Time Associated Diagnosis Comme nts VITAMIN D, Routine 10/04/2011 12:16 Vitamin D deficiency Res ults for this 25-HYDROXY PM EDT procedure are i n the results section. HEMOGLOBIN A1C Routine 10/04/2011 12:16 Diabetes mellitus Resu lts for this PM EDT procedure are i n the results section. VITAMIN B12 Routine 10/04/2011 12:16 Diabetes mellitus Result s for this PM EDT procedure are i n the results section. BASIC METABOLIC Routine 10/04/2011 12:16 Hypertension Results for this PANEL (NON-FASTING) PM EDT procedur e are in the results section. documented in this encounter Results Microalbumin, urine, random (07/28/2012 2:34 PM EDT) P athologist Signature U Creatinine 186 mg/dL CERNER MILLENNIUM U Albumin Conc, 6.2 mg/L CERNER Random MILLENNIUM Alb/Cr Ratio, 3 mcg/mg Cr CERNER Random MILLENNIUM Comment: Reference Range* Random collection (mcg/mg creatinine) Normal ?<30 Microalbuminuria ?? 30 - 300 Clinical Albuminuria ?? >300 *[place] Diabetes Association. Diabetic Nephropathy. Diabetes Care 1997;(Suppl 1):S24-S27 Exercise within 24 hour, infection, fe lester, CHF, marked hyperglycemia, and marked hypertension may elevate urinary albumin excretion over baseline values. Specimen Anatomical Collection Method Collection Time Receive d Time (Source) Location / / Volume Laterality Urine specimen 07/28/2012 2:34 PM 013 2:42 (specimen) EDT PM EDT Resulting Agency Comment Spec In Lab Pratik Cee MD URINE ORDERABLES Performing Organization Address City/[facility] [place] [address] [facility] LDL Cholesterol, Direct (07/28/2012 2:16 PM EDT) athologist Signature LDL Chol 83 <=99 mg/dL [facility] Direct [facility] Comment: The National Cholesterol Education Progr am (NCEP) has set the following guidelines for LDL Cholesterol: Reference range: ?? Optimal: ?<100 mg/dL ?? Near Optimal/Above Optimal: ?? 100-1 29 mg/dL ?? Borderline high: ?130-159 mg/dL ?? High: ? 160-189 mg/dL ?? Very high: ?>mn=806 mg/dL ARIADNE 2001: 285(19):0134-4748 Specimen Anatomical Collection Method Collection Time Receive d Time (Source) Location / / Volume Laterality Blood specimen 07/28/2012 2:16 PM 013 2:42 (specimen) EDT PM EDT Resulting Agency Comment Spec In Lab Pratik Cee MD CHEMISTRY ORDERABLES Performing Organization Address City/[facility]/ZIP Code Phon e Number [address] [facility] HDL/Cholesterol Profile (07/28/2012 2:16 PM EDT) P athologist Signature Chol, Total 158 <=199 mg/dL [facility] Comment: Recommendations of the NCEP Adult Treatm ent Panel for the following risk cutoff thresholds for the [place] populatio n: Desirable: <200 mg/dL Borderline High: 200-239 mg/dL High: > or = 240 mg/dL HDL 51 >=40 mg/dL CERNER MILLENNIUM Comment: Reference range: ??Low HDL: ?? < 40 mg/dL ??Normal: ?40-60 mg/dL ??Desirable: > 60 mg/dL ARIADNE 2001; 285(19):4310-3654 Chol/HDL Ratio 3.1 ratio CERNER MILLENNI UM Comment: A Cholesterol to HDL ratio below 4:1 is desirable. ??Studies suggest that increased CAD risk occurs at ratios abov e 5 for females and above 6 for men. ? [place] Heart Association ??(htt p://www.americanheart.org) ? Kathryn Int Med, 1994; 121:641 ? AM J Med, 1998; 105(1A):48S Specimen Anatomical Collection Method Collection Time Receive d Time (Source) Location / / Volume Laterality Blood specimen 07/28/2012 2:16 PM 013 2:42 (specimen) EDT PM EDT Resulting Agency Comment Spec In Lab Pratik Cee MD CHEMISTRY ORDERABLES Performing Organization Address City/State/ZIP [place] [address] CERNER MILLENNIUM TSH (07/28/2012 2:16 PM EDT) P athologist Signature TSH 3.17 0.27 - 4.20 CERNER mcIU/mL MILLENNIUM Specimen Anatomical Collection Method Collection Time Receive d Time (Source) Location / / Volume Laterality Blood specimen 07/28/2012 2:16 PM 013 2:42 (specimen) EDT PM EDT Resulting Agency Comment Spec In Lab Pratik Cee MD CHEMISTRY ORDERABLES Performing Organization Address City/State/ZIP Code Phon e Number [address] CERNER MILLENNIUM (ABNORMAL) Hemoglobin A1c (07/28/2012 2:16 PM EDT) Analysis Performed At Patho logist Time Signature Hemoglobin A1C 8.1 (H) 4.3 - 6.1 CERNER % MILLENNIUM Comment: The [place] Diabetes Association (ADA) has stated that HbA1c [...] Care 2013:36;suppl 1:S11 -S66. Est Avg Gluc 186 mg/dL [facility] Comment: eAG equivalents for HbA1c percentages: HbA1c(%) ?eAG(mg/dL) 6.0 ?126 6.5 ?140 7.0 ?154 7.5 ?169 8.0 ?183 8.5 ?197 9.0 ?212 9.5 ?226 10.0 ? 240 Limitations: The eAG calculation has not been validated on women, individuals below 18 years old and above 70 years old, and individuals with hemoglobinopathies. Additional resources are available on th e ADA website: ??http://professional.diabetes.org/gluc osecalculator.aspx Chevy PARTIDA, Jr J, Syed R, et al. ??Tr anslating the A1C assay into estimated average glucose values. ??Diabetes Care 2008:31(8):6336-1059. Specimen Anatomical Collection Method Collection Time Receive d Time (Source) Location / / Volume Laterality Blood specimen 07/28/2012 2:16 PM 04/08/2 013 2:42 (specimen) EDT PM EDT Resulting Agency Comment Spec In Lab Pratik Cee MD CHEMISTRY ORDERABLES Performing Organization Address City/State/ZIP [place] [address] CERNER MILLENNIUM (ABNORMAL) Vitamin B12 (10/04/2011 12:16 PM EDT) athologist Signature Vitamin B-12 1122 (H) 207 - 974 CERNER pg/mL MILLENNIUM Specimen Anatomical Collection Method Collection Time Receive d Time (Source) Location / / Volume Laterality Blood specimen 10/04/2011 12:16 2 (specimen) PM EDT 12:28 PM EDT Resulting Agency Comment Spec In Lab Pratik Cee MD CHEMISTRY ORDERABLES Performing Organization Address City/[facility]/ZIP [place] [address] CERNER MILLENNIUM VIT D Total 25 Hydroxy (10/04/2011 12:16 PM EDT) athologist Signature 25-OH Vit D 33 30 - 100 CERNER Total ng/mL [facility] Comment: Deficient <10 ng/mL Insufficient 10 to [...] of 05/29/2011 the Vitamin D Total, 25 [place] xy assays are being analyzed by the [facility]. ??There is NO CHANGE in units. ??Please contact the chemistry laboratory at [phone] with ques tions. Specimen Anatomical Collection Method Collection Time Receive d Time (Source) Location / / Volume Laterality Blood specimen 10/04/2011 12:16 10/03/ 2 (specimen) PM EDT 12:28 PM EDT Resulting Agency Comment Spec In Lab Pratik Cee MD CHEMISTRY ORDERABLES Performing Organization Address City/State/ZIP Code Phon e Number [place] [phone] CERNER MILLENNIUM (ABNORMAL) Hemoglobin A1c (10/04/2011 12:16 PM EDT) Analysis Performed At Patho logist Time Signature Hemoglobin A1C 7.6 (H) [...] into estimated average glucose values. ??Diabetes Care 2008:31(8):6884-4253. Specimen Anatomical Collection Method Collection Time Receive d Time (Source) Location / / Volume Laterality Blood specimen 10/04/2011 12:16 10/03/201 2 (specimen) PM EDT 12:28 PM EDT Resulting Agency Comment Spec In Lab Pratik Cee MD CHEMISTRY ORDERABLES Performing Organization Address City/State/ZIP [place] [address] CERNER MILLENNIUM (ABNORMAL) Basic Metabolic Panel (non-fasting) (10/04/2011 12:16 PM EDT) P athologist Signature Glucose Lvl 128 60 - 199 CERNER mg/dL MILLENNIUM Comment: Diabetes: >=200 mg/dL plus symp toms BUN 22 (H) 8 - 18 mg/dL CERNER MILLENNIUM Creatinine 0.96 0.70 - 1.20 mg/dL CERNER MILL ENNIUM Comment: Please note that the pediatric reference intervals supplied above were not validated at [facility]. Results from pediatri c patients should be [...] Organization Address City/State/ZIP [place] [address] [facility] documented in this encounter Visit Diagnoses Diagnosis Hypertension Unspecified essential hypertension Diabetes mellitus Type II or unspecified type diabetes татьяна litus without mention of complication, not stated as uncontrolled Vitamin D deficiency Unspecified vitamin D deficiency Hyperlipidemia Other and unspecified hyperlipidemia documented in this encounter Care Teams Supervisor Claims Relationship Specialty Start Date End Date Gerry Hackett MD PCP - General 03/14/10 06/18/[address] [place] [address] documented as of this encounter
--- OUTSIDE RECORDS SUMMARY | 2022-02-02 00:33 | XMS_ITS | Encounter Summary ---
:1950 Author Organization [facility] [place] [address] Care Team Providers Name Role Phone Gerry Hackett MD Primary Care Provider [phone] Reason for Visit Reason Comments Obstructive Sleep Apnea Encounter Details Date Type Department Care Team Description 10/31/2010 Office Visit Sleep Medicine Barber Thornton, ELIDA ([facility] sleep apnea) (Primary [facility] Dx) [place] [address] [facility] [place] [id number] (Wo rk) Social History Tobacco Use Types Packs/Day Years Used Date Former Smoker Comments: stopped 14 years ago Alcohol Use Standard Drinks/Week Comments Not Asked 0 (1 standard drink = 0.6 oz pure alcoho l) Sex Assigned at Date Recorded Not on file documented as of this encounter Last Filed Vital Signs Vital Sign Reading Time Taken Comments Blood Pressure 133/75 10/31/2010 4:08 PM EDT Pulse 92 10/31/2010 4:08 PM EDT Temperature - - Respiratory Rate - - Oxygen Saturation - - Inhaled Oxygen Concentration - - Weight 145.2 kg (320 lb) 10/31/2010 4:08 PM EDT Height 166.4 cm (5' 5.5) 10/31/2010 4:08 PM EDT Body Mass Index 52.44 10/31/2010 4:08 PM EDT documented in this encounter Progress Notes Barber Thornton MD - 10/31/2010 3:21 PM EDT Sleep Medicine Consultation Note HPI: Ms. Pennie Rodriguez is a 59 y.o. female seen at the request of Diane JOSEPH for advice regarding suspected obstructive sleep apnea. Patient is on 2 liters of oxygen prn during the day since one lung removed for lung cancer in 2003. Records from [id number] Hackett reviewed. Snoring: reported she snored before he in 2008. When a child she moaned in her sleep. Unclear when the snoring started. Severity: unsure Frequency: unsure Duration: unsure Modifying factors: unknown Over time: unknown Observed Apneas: no Mouth Breathing: unknown Dry Mouth: yes - keeps water at bedside because of dry mouth Nocturnal Gasping: Patient wakes gasping in association with GERD at a frequency of 2-3 x year starting after the lung cancer surgery in 2003. Catches breath immediately. May occur when on left side but not right side. Nasal Obstruction: no Weight: Since the cancer surgery she has gained 30 lbs in 2003. Just started on weight watchers Sleep Pattern: Location: bedroom Bed/Recliner/Wedge: bed elevated 4 in to help with GERD. Most of her GERD occurs when she lies down even before she falls asleep. GERD better with Prilosec and raising head of bed. Position: Side sleeper with 2 pillows under head Bedtime: 8 pm Lights out: TV on or gets on phone. Falls asleep 10 min after lights out. Lights out as early as 8 PM and as late as 10:30 PM Latency: brief Awakenings: 2 x per night Duration: brief usually Reason: nocturia Wake time: 5- 6 am wakes for day Rise time: same Days off: 7 days Shift Work: no, patient is retired Daytime Symptoms: [place]: 7 Upon Awakening: Feels OK May feel tired in morning and doze off watching TV (2 x per week) and might doze watching TV in evening (1 x per week) Naps: 3 x per week napping in recliner for about 30 min - restorative Cognitive Symptoms: nothing more than she has always had she reports Driving: No difficulties with sleepiness Close calls related to sleepiness: no Accidents related to sleepiness: no Sleep Review of Symptoms: Parasomnias: Sleep Walking: no Dream Enactment: no Bruxism: yes Motor: RLS: no PLMS: no Leg cramps 1 x per week in past resolved with eating bananas Narcolepsy: Hallucinations: no Paralysis: no Cataplexy: no Past/Childhood Sleep History: Moaning in sleep as a child Family History: Family history of sleep disorders: Disabled son diagnosed with sleep apnea and is onCPAP. Past Medical History: Past Medical History Diagnosis Date ??? Diabetes mellitus ??? Arthritis ??? COPD (chronic obstructive pulmonary disease) ??? Asthma ??? Hypertension ??? Obesity ??? Lung cancer Tx surgically, XRT and chemotherapy ??? Hyperlipidemia ??? GERD (gastroesophageal reflux disease) ??? Anemia After chemo but this has resolved per pt. ??? Hoarseness Evaluated by Dr Leslie. Attributed to inhalers. ??? Stasis dermatitis Past Surgical History: Past Surgical History Procedure Date ??? Created by interface benign breast biopsy Procedure Date: Unknown ??? Created by interface BRONCHOSCOPY; DX, W\WO CELL WASHING Procedure Date: 04/20/2004 ??? Created by interface COLONOSCOPY (ENDO) Procedure Date: 05/08/2006 ??? Created by interface THORACOTOMY-PNEUMONECTOMY,TOTAL / LEFT Procedure Date: 04/20/2004 ??? Created by interface Tonsillectomy Procedure Date: Unknown ??? Lung removal, total Left lung removed to treat the cancer Medications: verified Allergies: verified Social History: Employment: Disabled postmistress Alcohol: none, quit 1990, she was a heavy drinker Smoking: quit smoking mid . Had smoked 20 years prior. Other drugs: no Caffeine: iced tea - one large cup per day 4 x per week. Coffee on occasion. Family: Disabled adult son at home ROS: CON: weight change: gaining as above ENT: nasal obstruction: not usually NEURO: sleep related headaches: no CV: chest pain: no Palpitations: as below LE edema: no PUL: IZQUIERDO: When walking up stairs she gets sob and feels heart racing at this point PSY: Depression: on occasion she feels down about of . She goes to counseling. Anxiety: Occ anxious about meetings but still goes GI: GERD: yes and it may wake her - see above : Nocturia: 2 x per night MSK: Pain: right hip and knee pain may lead to position change ALL: Environmental Allergies: no MSE: Alert and appropriate: yes Oriented to person, place and time: 07/24 place, 07/24 time , 04/22 person Mood: good Affect: full PE: General: obese female in NAD Height: 5 ft 5.5 in Weight: 320 lbs Blood pressure: 133/75 Pulse: 92 Eyes: Conjunctivae: slight injection bilaterally EOM: intact ENT: MP: 4 Facial deformity: no Hard palate: high Soft palate: low Gums and teeth: normal Tongue: large Nares: patent Pul: Respirations: even and not labored Auscultation: LCTA on right. No breath sounds on left. Cardiac: LE edema: trace edema bilaterlly. Venous stasis changes bilaterally. Neck/Lymphatics: Lymphadenopathy: no Masses: no Circumference: 15 04/25 in Neuro: deferred Musculoskeletal: Gait and stance: walks slowly with a walker PFTs in 2003 revealed a severe obstructive defect with a probable restrictive defect. Assessment: Ms. Pennie Rodriguez is a 59 y.o. female who is seen to evaluate for possible obstructive sleep apnea. The pathophysiology of, the reasons to treat and treatment options for obstructive sleep apnea were all reviewed with the patient today. Given her obesity, upper airway anatomy, nocturnal gasping, nocturia, nocturnal GERD and daytime sleepiness obstructive sleep apnea is likely. Given her pneumonectomy, obesity and COPD she may very well have nocturnal hypoxemia. Her desaturation with exercise increases the likelihood she will have nocturnal desaturations. Diagnostic Codes: ELIDA 327.23 Nocturnal hypoxemia 327.26 Time spent face to face: 60 Time spent devoted to counseling and discussion: 20 Reccomendations: 1) Polysomnography as flat as possible. We will use the hospital bed. 2) Driving safety was reviewed with patient. If the patient feels too sleepy to drive he/she knows not to drive. If he/she becomes sleepy while driving he/she will pullman car repairer and nap. 3) Weight loss The patient indicates understanding of these issues and agrees with the plan. documented in this encounter Plan of Treatment Upcoming Encounters Date Type Specialty Care Team Description 04/04/2022 Office Visit Dermatology Celena Salazar MD [facility] [address] [place], [place] [address] (Wo rk) documented as of this encounter Visit Diagnoses Diagnosis ELIDA (obstructive sleep apnea) - Primary Obstructive sleep apnea (adult) (pediatr ic) documented in this encounter Care Teams Promotion Officer Relationship Specialty Start Date End Date Gerry Hackett MD PCP - General 03/14/10 06/18/[address] [place] [address] documented as of this encounter
--- OUTSIDE RECORDS SUMMARY | 2022-02-02 00:33 | XMS_ITS | Encounter Summary ---
:1950 Author Organization [facility] [place] [address] Care Team Providers Name Role Phone Gerry Hackett MD Primary Care Provider [phone] Encounter Details Date Type Department Care Team Description 03/27/2011 Orders Only Endocrinology at [facility] Diane Lewis, Diabetes mellitus [facility] [place] [address] [facility] [phone] ENDOCRINOLOGY [address] PT. [place], [place] [address] (Wo rk) Social History Tobacco [...] [facility] [address] [place], [place] [address] (Wo rk) documented as of this encounter Results (ABNORMAL) CBC (with Diff) (04/04/2011 11:37 AM EST) P athologist Signature WBC 8.0 4.0 - [...] Organization Address City/State/[place] [address] CERNER MILLENNIUM documented in this encounter Visit Diagnoses Diagnosis Diabetes mellitus Type II or unspecified type diabetes татьяна litus without mention of complication, not stated as uncontrolled documented in this encounter Care Teams Training Manager Relationship Specialty Start Date End Date Gerry Hackett MD PCP - General 03/14/10 06/18/[address] [place] [address] documented as of this encounter
--- OUTSIDE RECORDS SUMMARY | 2022-02-02 00:33 | XMS_ITS | Encounter Summary ---
:1950 Author Organization [facility] [place] [address] Care Team Providers Name Role Phone Gerry Hackett MD Primary Care Provider Reason for Visit Reason Onset Date Comments Diabetes 08/07/2012 Encounter Details Date Type Department Care Team Description 08/07/2012 Telephone Endocrinology at [facility] Diane Lewis APRN [facility] [place] [facility] [place] [address] ENDOCRINOLOGY DEPT. [phone] [place] [id number] (Wo rk) Social History Tobacco Use Types Packs/Day Years Used Date Former Smoker Quit: 04/04/19 99 Comments: stopped 14 years ago Alcohol Use Standard Drinks/Week Comments Not Asked 0 (1 standard drink = 0.6 oz pure alcoho l) Sex Assigned at Date Recorded Not on file documented as of this encounter Miscellaneous Notes Telephone Encounter - Diane Serra APRN - 08/07/2012 5:15 PM EDT Called pt X2. Left messagre on her answering machine to continue what she is doing with glimepiride , lantus and apidra. Okay not to take glimepiride before evening meal. Call SEMICONDUCTOR PACKAGES SEALER if glucose levels are not close to target of under 130 before meals documented in this encounter Plan of Treatment Upcoming Encounters Date Type Specialty Care Team Description 04/04/2022 Office Visit Dermatology Celena Salazar MD [facility] ER [address] [place], [place] [address] (Wo rk) documented as of this encounter Visit Diagnoses Not on filedocumented in this encounter Care Teams Experimental Preflight Mechanic Relationship Specialty Start Date End Date Gerry Hackett MD PCP - General 03/14/10 06/18/[address] [place] [address] documented as of this encounter
--- OUTSIDE RECORDS SUMMARY | 2022-02-02 00:33 | XMS_ITS | Encounter Summary ---
:1950 Author Organization [place] [address] Care Team Providers Name Role Phone Gerry Hackett MD Primary Care Provider [phone] Reason for Visit Reason Onset Date Comments Medication Refill 12/15/2010 Encounter Details Date Type Department Care Team Description 12/15/2010 Refill Endocrinology at [facility] Diane Lewis APRN [facility] [address] [facility] [place] [address] ENDOCRINOLOGY DEPT. [phone] [place], [place] [address] (Wo rk) Social History Tobacco [...] MD [facility] [address] [place], [place] [address] (Wo rk) documented as of this encounter Visit Diagnoses Not on filedocumented in this encounter Care Teams Computer Systems Designer Relationship Specialty Start Date End Date Gerry Hackett MD PCP - General 03/14/10 06/18/[address] [place] [address] documented as of this encounter
--- OUTSIDE RECORDS SUMMARY | 2022-02-02 00:33 | XMS_ITS | Encounter Summary ---
:1950 Author Organization [facility] Address [address] [facility] [place] [address] Care Team Providers Name Role Phone Gerry Hackett MD Primary Care Provider [phone] Encounter Details Date Type Department Care Team Description 08/26/2012 [place] [facility] [place] of 1 [facility] bronchus and lung, [place] [address] unspecified site [phone] Social History Tobacco Use Types Packs/Day Years [...] Celena Salazar MD [facility] ER [address] [place], [place] [address] (Wo rk) documented as of this encounter Procedures Procedure Name Priority Date/Time Associated Diagnosis Comme nts XR CHEST PA AND Routine 08/26/2012 2:20 PM Malignant neoplasm Results for this LATERAL EDT of bronchus and procedure ar e in lung, unspecified the result s site section. documented in this encounter Results XR chest routine PA & lateral (08/26/2012 2:20 PM EDT) Anatomical Region Laterality Modality Chest N/A Radiographic Imaging Specimen (Source) Anatomical Collection Method Collection Time Re ceived Time Location / / Volume Laterality 08/26/2012 2:20 PM EDT Narrative 08/27/2012 7:54 AM EDT Examination CHEST ROUTINE PA+LAT Clinical History Reason for exam and clinical history: Rosana ng Cancer; Comparison 08/21/2011. Technique 2 views. Findings The patient is status post left pneumone ctomy. ??Stable postsurgical changes are seen in the left hemithorax. ??The right lung remains clear. ??No pulmonary nodules or focal airspace opacity. ??The mediastinum is unchanged in appearance. ?? No interval osseous changes. Impression A unchanged post left pneumonectomy coreas ges. ??No evidence of disease recurrence or metastasis. Film and interpretation reviewed by the attending Procedure Note Verena Albright MD - 08/27/2012Formatt ing of this note might be different from the original. Examination CHEST ROUTINE PA+LAT Clinical History Reason for exam and clinical history: Rosana ng Cancer; Comparison 08/21/2011. Technique 2 views. Findings The patient is status post left pneumone ctomy. Stable postsurgical changes are seen in the left hemithorax. The right l juan remains clear. No pulmonary nodules or focal airspace opacity. The m ediastinum is unchanged in appearance. No interval osseous changes. Impression A unchanged post left pneumonectomy coreas ges. No evidence of disease recurrence or metastasis. Film and interpretation reviewed by the attending Ochoa Harrell MD IMG DX ORDERABLES documented in this encounter Visit Diagnoses Diagnosis Malignant neoplasm of bronchus and lung, unspecified site documented in this encounter Care Teams Star Route Mail Driver Relationship Specialty Start Date End Date Gerry Hackett MD PCP - General 03/14/10 06/18/[address] [place] [address] documented as of this encounter
--- OUTSIDE RECORDS SUMMARY | 2022-02-02 00:33 | XMS_ITS | Encounter Summary ---
:1950 Author Organization [facility] Address [facility] [place] [address] Care Team Providers Name Role Phone Gerry Hackett MD Primary Care Provider [phone] Encounter Details Date Type Department Care Team Description 03/24/2012 Telephone Endocrinology at [facility] C Glory Murdock CDE [facility] [place] [address] ENDOCRINOLOGY DEPT. [phone] [place], [place] [address] (Wo rk) Social History Tobacco Use Types Packs/Day Years Used Date Former Smoker Quit: 04/04/19 99 Comments: stopped 14 years ago Alcohol Use Standard Drinks/Week Comments Not Asked 0 (1 standard drink = 0.6 oz pure alcoho l) Sex Assigned at Date Recorded Not on file documented as of this encounter Miscellaneous Notes Telephone Encounter - Glory Murdock RN - 03/25/2012 3:40 PM EST Close chart documented in this encounter Plan of Treatment Upcoming Encounters Date Type Specialty Care Team Description 04/04/2022 Office Visit Dermatology Celena Salazar MD [facility] ER DR [address] [place], [place] [address] (Wo rk) documented as of this encounter Visit Diagnoses Not on filedocumented in this encounter Care Teams Parts Counter Salesperson Relationship Specialty Start Date End Date Gerry Hackett MD PCP - General 03/14/10 06/18/[address] [place] [address] documented as of this encounter
--- OUTSIDE RECORDS SUMMARY | 2022-02-02 00:33 | XMS_ITS | Encounter Summary ---
:1950 Author Organization [facility] Address [facility] [place] [address] Care Team Providers Name Role Phone Gerry Hackett MD Primary Care Provider [phone] Reason for Visit Reason Comments Follow-up Lung Cancer Encounter Details Date Type Department Care Team Description 08/26/2012 Follow-Up Hematology and Ochoa Harrell MD Lung cancer (Primary Dx); Oncology at [facility] Non-small cell lung cancer; [facility] DR Non-small cell carcinoma of lung Drive HEMATOLOGY/[place] [address] DEPT. [phone] [place], [place] [address] (Wo rk) Social History Tobacco [...] Sign Reading Time Taken Comments Blood Pressure 123/77 08/26/2012 2:47 PM EDT Pulse - - Temperature 36.8 ??C (98.2 ??F) 08/26/2012 2:47 PM EDT Respiratory Rate 18 08/26/2012 2:47 PM EDT Oxygen Saturation 97% 08/26/2012 2:47 PM EDT Inhaled Oxygen Concentration - - Weight 143 kg (315 lb 4.1 oz) 08/26/2012 2:47 PM EDT Height 167.6 cm (5' 6) 08/26/2012 2:47 PM EDT Body Mass Index 50.88 08/26/2012 2:47 PM EDT documented in this encounter Progress Notes Ochoa Harrell MD - 08/26/2012 3:04 PM EDT Subjective: Patient ID: Pennie Rodriguez is a 61 y.o. female with resected stage IIIA ([id number]) non-small cell lungcancer in March of 2004. [...] this patient's medications and allergies from today, 08/26/2012.I personally reviewed this patient's medications and allergies. Current Outpatient Prescriptions on File Prior to Visit Medication Sig Dispense Refill ??? lisinopril (PRINIVIL;ZESTRIL) 40 mg tablet Take 40 mg by mouth daily. ??? insulin glulisine (APIDRA SOLOSTAR) 100 unit/mL pen injection Inject 6-10 Units subcutaneously 2times daily (before meals). 15 mL 12 ??? Calcium 220 mg capsule Take 250 mg by mouth daily. ??? atorvastatin (LIPITOR) [...] reviewed this patient's tobacco history from today, 08/26/2012. Vitals 08/26/12 Weight - Scale ! 143 kg (315 lb 4.1 oz) Height 167.6 cm (5' 6) Length (cm) () -- Head Circumference (cm) -- BSA (Calculated - sq m) 2.58 sq meters BMI (Calculated) 51 Temp 36.8 ??C (98.2 ??F) Temp Source Oral Heart Rate -- Heart Rate Source NIBP Resp 18 BP 123/77 mmHg BP Location Other (Comment) [wrist] Patient Position Sitting SpO2 97 % Pain Level 0 FACES Pain Rating: Rest 0 - no hurt FACES Pain Rating: Activity 0 - no hurt Karnofsky Score 70 [place] -- Motor Neuropathy -- Sensory Neuropathy -- Objective: Physical Exam Constitutional: She is oriented [...] reviewed this patient's laboratory studies from today, 08/26/2012.The patient has no clinically significant hematologic, hepatic or renal function abnormalities. These results were reviewed and shared with the patient. Recent Results (from the past 24 hour(s)) CBC (WITH DIFF) Component Value Range WBC 8.4 4.0 - 10.0 x10(3)/mcL RBC 3.91 (*) 3.93 - 5.22 x10(6)/mcL Hemoglobin 11.2 11.2 - 15.7 gm/dL Hematocrit 36.0 34.0 - 45.0 % MCV 92.1 79.0 - 94.0 fL MCH 28.6 26.6 - 32.2 pg MCHC 31.1 (*) 32.0 - 36.5 gm/dL Platelets 291 145 - 370 x10(3)/mcL RDWSD 48.0 (*) 35.0 - 46.0 fL RDWCV 14.4 10.9 - 14.4 % MPV 10.3 9.0 - 12.0 fL COMPREHENSIVE METABOLIC PANEL (NON-FASTING) Component Value Range Glucose Lvl 179 60 - 199 mg/dL BUN 17 8 - 18 mg/dL Creatinine 1.05 0.70 - 1.20 mg/dL Sodium 135 135 - 145 mmol/L Potassium 4.2 3.5 - 5.0 mmol/L Chloride 99 98 - 107 mmol/L CO2 28 22 - 31 mmol/L Anion Gap 8 5 - 15 mmol/L Calcium 9.6 8.5 - 10.5 mg/dL Total Protein 7.2 6.4 - 8.3 gm/dL Albumin 3.8 3.2 - 5.2 gm/dL AST 10 0 - 30 unit/L ALT 11 0 - 30 unit/L Alk Phos 105 (*) 40 - 104 unit/L Total Bilirubin 0.2 0.2 - 1.3 mg/dL Bili, Direct <0.1 0.0 - 0.3 mg/dL Estimated GFR 53 (*) >=60 LACTATE DEHYDROGENASE Component Value Range LDH 167 110 - 220 unit/L D-DIMER, QUANTITATIVE Component Value Range D-Dimer, Quant 944 (*) 0 - 500 FEU ng/ml DIFFERENTIAL, AUTOMATED Component Value Range Neutrophils % 76.0 (*) 34.0 - 71.0 % Neutr Abs (ANC) 6.38 (*) 1.50 - 6.30 x10(3)/mcL Lymphocytes % 17.5 (*) 19.0 - 53.0 % Lymphocytes Abs 1.5 1.0 - 3.6 x10(3)/mcL Monocytes % 4.3 4.0 - 13.0 % Monocyte Abs 0.4 0.2 - 1.0 x10(3)/mcL Eosinophils % 1.4 0.0 - 7.0 % Eosinophils Abs 0.1 0.0 - 0.5 x10(3)/mcL Basophils % 0.7 0.0 - 2.0 % Basophils Abs 0.1 0.0 - 0.2 x10(3)/mcL Immature Gran % 0.10 0.00 - 0.66 % Shanae Gran Abs 0.01 0.00 - 0.05 x10(3)/mcL RADIOGRAPHIC EVALUATION: I personally reviewed this patient's radiographic studies from today, 08/26/2012 in comparison to their last and baseline evaluation radiographic studies. These results were reviewed with our radiologists and the images, reports and results shared with the patient. She has no evidence of recurrent, progressive or new metastatic disease. She has postoperative changes with a leftpneumonectomy. Assessment and Plan: ASSESSMENT: Patient with resected stage IIIA ([id number]) non-small cell lung cancer in 2004 status [...] Dermatology Celena Salazar MD [facility] ER [address] [place], [place] [address] (Wo rk) documented as of this encounter Procedures Procedure Name Priority Date/Time Associated Comments Diagnosis DIFFERENTIAL, STAT 08/26/2012 1:59 PM Results for this AUTOMATED EDT procedure are i n the results section. D-DIMER, QUANTITATIVE STAT 08/26/2012 1:59 PM Lung cancer Results for this EDT procedure are i n the results section. CBC (WITH DIFF) STAT 08/26/2012 1:59 PM Lung cancer Result s for this EDT procedure are i n the results section. LACTATE DEHYDROGENASE STAT 08/26/2012 1:59 PM Lung cancer Results for this EDT procedure are i n the results section. COMPREHENSIVE STAT 08/26/2012 1:59 PM Lung cancer Results for this METABOLIC PANEL EDT procedure ar e in (NON-FASTING) the results section. documented in this encounter Results (ABNORMAL) Differential, Automated (08/26/2012 1:59 PM EDT) [facility] gist Method Time Signature Neutrophils % 76.0 (H) 34.0 - CERNER 71.0 % MILLENNIUM Neutr Abs (ANC) 6.38 (H) 1.50 - CERNER 6.30 MILLENNIUM x10(3)/mc L Lymphocytes % 17.5 (L) 19.0 - CERNER 53.0 % MILLENNIUM Lymphocytes Abs 1.5 1.0 - 3.6 CERNER x10(3)/mc MILLENNIUM L Monocytes % 4.3 4.0 - CERNER 13.0 % MILLENNIUM Monocyte Abs 0.4 0.2 - 1.0 CERNER x10(3)/mc MILLENNIUM L Eosinophils % 1.4 0.0 - 7.0 CERNER % MILLENNIUM Eosinophils [...] PM 013 2:03 (specimen) EDT PM EDT Ochoa Harrell MD HEMATOLOGY ORDERABLES Performing Organization Address City/[facility]/ZIP Code Phon e Number [address] CERNER MILLENNIUM (ABNORMAL) D-Dimer, Quantitative (08/26/2012 1:59 PM EDT) athologist Signature D-Dimer, Quant 944 (H) 0 [...] Harrell MD HEMATOLOGY ORDERABLES Performing Organization Address City/[facility]/[place] [address] CERNER MILLENNIUM Lactate Dehydrogenase [...] Organization Address City/State/ZIP Code Phon [place] [address] CERNER MILLENNIUM (ABNORMAL) Comprehensive metabolic panel (non-fasting) (08/26/2012 1:59 PM EDT) athologist Signature Glucose Lvl 179 60 - 199 CERNER mg/dL MILLENNIUM Comment: Diabetes: >=200 mg/dL plus symp toms BUN 17 8 - 18 mg/dL CERNER MILLENNIUM Creatinine 1.05 0.70 - 1.20 mg/dL CERNER MILL ENNIUM Comment: Please note that the pediatric reference intervals supplied above were not validated at [facility]. Results from pediatri c patients [...] Organization Address City/State/ZIP Code Phon e Number [place] [phone] CERNER MILLENNIUM (ABNORMAL) CBC [...] Platelets 291 145 - 370 CERNER x10(3)/mcL ENNIUM RDWSD 48.0 (H) 35.0 - CERNER 46.0 fL ENNIUM RDWCV 14.4 10.9 - CERNER 14.4 % ENNIUM MPV 10.3 9.0 - 12.0 CERNER fL ENNIUM Specimen Anatomical Collection Method Collection Time Receive d Time (Source) Location / / Volume Laterality Blood specimen 08/26/2012 1:59 PM 013 2:03 (specimen) EDT PM EDT Resulting Agency Comment Spec In Lab Ochoa Harrell MD HEMATOLOGY ORDERABLES Performing Organization Address City/State/[place] [address] [facility] documented in this encounter Visit Diagnoses Diagnosis Lung cancer - Primary Malignant neoplasm of bronchus and lung, unspecified site Non-small cell lung cancer Malignant neoplasm of bronchus and lung, unspecified site Non-small cell carcinoma of lung Malignant neoplasm of bronchus and lung, unspecified site documented in this encounter Care Teams Mason Foreman/Superintendant Relationship Specialty Start Date End Date Gerry Hackett MD PCP - General 03/14/10 06/18/[address] [place] [address] documented as of this encounter
--- OUTSIDE RECORDS SUMMARY | 2022-02-02 00:33 | XMS_ITS | Encounter Summary ---
:1950 Author Organization [place] [address] Care Team Providers Name Role Phone Gerry Hackett MD Primary Care Provider [phone] Encounter Details Date Type Department Care Team Description 07/28/2012 Hospital Encounter Laboratory Pratik Cee, Diabetes mellitus; [facility] Hyperlipidemia [facility] [address] ENDOCRINOLOGY [phone] [address] [place] [id number] Social History Tobacco Use Types Packs/Day Years [...] 04/04/2022 Office Visit Dermatology Celena Salazar MD [facility] [address] [place], [place] [address] (Wo rk) documented as of this encounter Procedures Procedure Name Priority Date/Time Associated Diagnosis Comme nts U ALBUMIN/CRE RATIO Routine 07/28/2012 2:34 PM Diabetes mellit us Results for this EDT procedure are i n the results section. TSH Routine 07/28/2012 2:16 PM Diabetes mellitus Resu lts for this EDT procedure are i n the results section. LDL CHOLESTEROL, Routine 07/28/2012 2:16 PM Hyperlipidemia Res ults for this DIRECT EDT procedure are i n the results section. HDL/CHOL PROFILE Routine 07/28/2012 2:16 PM Hyperlipidemia Res ults for this EDT procedure are i n the results section. HEMOGLOBIN A1C Routine 07/28/2012 2:16 PM Diabetes mellitus Re sults for this EDT procedure are i n [...] 30 - 300 Clinical Albuminuria ?? >300 *[place] Citizen Diabetes Association. Diabetic Nephropathy. Diabetes Care 1997;(Suppl [...] Organization Address City/State/[place] [address] CERNER MILLENNIUM LDL Cholesterol, Direct (07/28/2012 2:16 PM EDT) P athologist Signature LDL Chol 83 <=99 mg/dL CERNER Direct MILLENNIUM Comment: The National Cholesterol Education Progr am (NCEP) has set the following guidelines for LDL Cholesterol: Reference range: ?? Optimal: ?<100 mg/dL ?? Near Optimal/Above Optimal: ?? 100-1 29 mg/dL ?? Borderline high: ?130-159 mg/dL ?? High: ? 160-189 mg/dL ?? Very high: ?>et=639 mg/dL ARIADNE 2001: 285(19):6838-5460 Specimen Anatomical Collection Method Collection Time Receive d Time (Source) Location / / Volume Laterality Blood specimen 07/28/2012 2:16 PM 013 2:42 (specimen) EDT PM EDT Resulting Agency Comment Spec In Lab Pratik Cee MD CHEMISTRY ORDERABLES Performing Organization Address City/[facility] [place] [address] [facility] HDL/Cholesterol Profile (07/28/2012 2:16 PM EDT) P athologist Signature Chol, Total 158 <=199 mg/dL [facility] Comment: Recommendations of the NCEP Adult Treatm ent Panel for the following risk cutoff thresholds for the [place] Citizen populatio n: Desirable: <200 mg/dL Borderline High: 200-239 mg/dL High: > or = 240 mg/dL HDL 51 >=40 mg/dL [facility] Comment: Reference range: ??Low HDL: ?? < 40 mg/dL ??Normal: ?40-60 mg/dL ??Desirable: > 60 mg/dL ARIADNE 2001; 285(19):1470-2608 Chol/HDL Ratio 3.1 ratio [facility] Comment: A Cholesterol to HDL ratio below 4:1 is desirable. ??Studies suggest that increased CAD risk occurs at ratios abov e 5 for females and above 6 for men. ? [place] Citizen Heart Association ??(htt p://www.americanheart.org) ? Kathryn Int [...] [facility]/ZIP Code Phon e Number [address] [facility] TSH (07/28/2012 2:16 PM EDT) P athologist Signature TSH 3.17 0.27 - 4.20 CERNER mcIU/mL [facility] Specimen Anatomical Collection Method Collection Time Receive d Time (Source) Location / / Volume Laterality Blood specimen 07/28/2012 2:16 PM 013 2:42 (specimen) EDT PM EDT Resulting Agency Comment Spec In Lab Pratik Cee MD CHEMISTRY ORDERABLES Performing Organization Address City/State/[place] [address] CERROMY SHERIDANENNIUM (ABNORMAL) Hemoglobin A1c (07/28/2012 2:16 PM EDT) Analysis Performed At Patho logist Time Signature Hemoglobin A1C 8.1 (H) 4.3 - 6.1 CERNER % MILLENNIUM Comment: The [place] Diabetes Association (ADA) has stated that HbA1c [...] 1:S11 -S66. Est Avg Gluc 186 mg/dL [facility] Comment: eAG equivalents for HbA1c percentages: HbA1c(%) ?eAG(mg/dL) 6.0 ?126 6.5 ?140 7.0 ?154 7.5 ?169 8.0 ?183 8.5 ?197 9.0 ?212 9.5 ?226 10.0 ? 240 Limitations: The eAG calculation has not been validated on women, individuals below 18 years old and above 70 years old, and individuals with hemoglobinopathies. Additional resources are available on e ADA website: ??http://professional.diabetes.org/gluc osecalculator.aspx Chevy PARTIDA, Jr J, Syed R, et al. ??Tr anslating the A1C assay into estimated average glucose values. ??Diabetes Care 2008:31(8):8830-7882. Specimen Anatomical Collection Method Collection Time Receive d Time (Source) Location / / Volume Laterality Blood specimen 07/28/2012 2:16 PM 013 2:42 (specimen) EDT PM EDT Resulting Agency Comment Spec In Lab Pratik Cee MD CHEMISTRY ORDERABLES Performing Organization Address City/State/[place] [address] [facility] documented in this encounter Visit Diagnoses Diagnosis Diabetes mellitus Type II or unspecified type diabetes татьяна litus without mention of complication, not stated as uncontrolled Hyperlipidemia Other and unspecified hyperlipidemia documented in this encounter Care Teams Outbound Telemarketing Representative Relationship Specialty Start Date End Date Gerry Hackett MD PCP - General 03/14/10 06/18/[address] [place] [address] documented as of this encounter
--- OUTSIDE RECORDS SUMMARY | 2022-02-02 00:33 | XMS_ITS | Encounter Summary ---
:1950 Author Organization [facility] Address [address] [place] [address] Care Team Providers Name Role Phone Gerry Hackett MD Primary Care Provider [phone] Encounter Details Date Type Department Care Team Description 09/12/2010 Hospital Encounter XRay at [address] [place] [address] Social History Tobacco Use Types Packs/Day Years Used Date Former Smoker Comments: stopped 14 years ago Sex Assigned at Date Recorded Not on file documented as of this encounter Medications at Time of Discharge Medication Sig Dispensed Refills Start Date End Date aspirin 81 mg EC tablet Take 81 mg by 0 mouth daily. pramoxine (PROCTOFOAM) 1 % 0 0 foam CIS Free Text Med - Albuterol 0 200910/31/2010 hydrochlorothiazide 0 03/07/201010/31 (HYDRODIURIL) 25 mg tablet lisinopril (PRINIVIL;ZESTRIL) 5MG, PO, Once 0 10/03/2010 10 mg tablet daily atorvastatin (LIPITOR) 40 mg 20mg, PO, QD 0 03/0710/31/2010 tablet fluticasone-salmeterol (ADVAIR 0 03/0710/31/2010 DISKUS) 250-50 mcg/dose diskus inhaler albuterol-ipratropium 0 03/07/2010 (COMBIVENT) 18-103 mcg/Actuation inhaler glimepiride (AMARYL) 4 mg 1/2 tab QAM & 1 0 03/0710/31/2010 tablet tab QPM, PO, Twice daily omeprazole (PRILOSEC) 20 mg 0 03/07/20 10 08/06/2017 capsule cyanocobalamin, vitamin B-12, 0 200910/03/2010 1,000 mcg/mL injection ferrous gluconate (FERGON) 324 0 03/0710/03/2010 mg (38 mg Iron) tablet sitaGLIPtin (JANUVIA) 100 mg 0 010 01/14/2017 tablet Insulin Glargine (LANTUS 0 03/07/2010 12/04/2012 SOLOSTAR) 100 unit/mL (3 mL) InPn FLUOROURACIL TOP 0 03/07/2010 11/01/19 11 documented as of this encounter Plan of Treatment Upcoming Encounters Date Type Specialty Care Team Description 04/04/2022 Office Visit Dermatology Celena Salazar MD [facility] ER [address] [place], [place] [address] (Wo rk) documented as of this encounter Procedures Procedure Name Priority Date/Time Associated Comments Diagnosis XR CHEST PA AND Routine 09/12/2010 1:21 PM Result s for this LATERAL EDT procedure are i n the results section. DIFFERENTIAL, STAT 09/12/2010 12:52 Results fo r this AUTOMATED PM EDT procedure are i n the results section. D-DIMER, QUANTITATIVE STAT 09/12/2010 12:52 Re sults for this PM EDT procedure are i n the results section. CBC (WITH DIFF) STAT 09/12/2010 12:52 Results for this PM EDT procedure are i n the results section. LACTATE DEHYDROGENASE STAT 09/12/2010 12:52 Re sults for this PM EDT procedure are i n the results section. COMPREHENSIVE STAT 09/12/2010 12:52 Results fo r this METABOLIC PANEL PM EDT procedure ar e in (NON-FASTING) the results section. documented in this encounter Results XR CHEST ROUTINE PA & LATERAL (09/12/2010 1:21 PM EDT) Anatomical Region Laterality Modality Chest N/A Radiographic Imaging Specimen (Source) Anatomical Collection Method Collection Time Re ceived Time Location / / Volume Laterality 09/12/2010 1:21 PM EDT Impressions 09/13/2010 11:13 AM EDT IMPRESSION: ?? No significant change from prior chest r adiograph from 08/30/09; specifically, no evidence for disease recurrence. ?? Film and interpretation reviewed by the attending Narrative 09/13/2010 11:13 AM EDT PA AND LATERAL CHEST RADIOGRAPH: CLINICAL HISTORY: ??Stage III non-small cell lung cancer. ??Question disease status. COMPARISON: ??Chest CT, 08/30/09, as wel l as chest radiograph, 08/30/09. FINDINGS: ??Postsurgical changes of left -sided pneumonectomy again noted with diffuse opacification of the left hemith orax and leftward shift of the heart and mediastinum. ??The right lung is ida ar. ??No suspicious osseous abnormalities. Procedure Note Lenard Weinberg MD - 09/13/2010Formatt ing of this note might be different from the original. PA AND LATERAL CHEST RADIOGRAPH: CLINICAL HISTORY: Stage III non-small ce ll lung cancer. Question disease status. COMPARISON: Chest CT, 08/30/09, as well as chest radiograph, 08/30/09. FINDINGS: Postsurgical changes of left-s ided pneumonectomy again noted with diffuse opacification of the left hemith orax and leftward shift of the heart and mediastinum. The right lung is clear . No suspicious osseous abnormalities. IMPRESSION IMPRESSION: No significant change from prior chest r adiograph from 08/30/09; specifically, no evidence for disease recurrence. Film and interpretation reviewed by the attending Ochoa Harrell MD IMG DX ORDERABLES (ABNORMAL) REFLEX LAB-A-DIFF (09/12/2010 12:52 PM EDT) [facility] Method Time Signature Neutrophils % 76.9 (H) 34.0 - CERNER 71.0 % MILLENNIUM Neutr Abs (ANC) 6.61 (H) 1.50 - CERNER 6.30 MILLENNIUM x10(3)/mc L Lymphocytes % 16.0 (L) 19.0 - CERNER 53.0 % MILLENNIUM Lymphocytes Abs 1.4 1.0 - 3.6 CERNER x10(3)/mc MILLENNIUM L Monocytes % 4.9 4.0 - CERNER 13.0 % MILLENNIUM Monocyte [...] Location / / Volume Laterality Blood specimen 09/12/2010 12:52 1 1:00 (specimen) PM EDT PM EDT Ochoa Harrell MD HEMATOLOGY ORDERABLES Performing Organization Address City/[facility] Code Phon e Number [place] [phone] LAB[address] CERNER MILLENNIUM (ABNORMAL) D-DIMER, QUANTITATIVE (09/12/2010 12:52 PM EDT) athologist Signature D-Dimer, Quant 954 (H) 0 - 500 CERNER ng/mL MILLENNIUM Comment: The D-Dimer assay is used to aid in the diagnosis of deep vein thrombosis and pulmonary embolism. A normal D-Dimer res ult (less than 500 ng/ml) has a negative predictive value of approximate ly 95% for the exclusion of acute PE and DVT when there is low to moderate pr etest probability. Specimen Anatomical Collection Method Collection Time Receive d Time (Source) Location / / Volume Laterality Blood specimen 09/12/2010 12:52 1 1:00 (specimen) PM EDT PM EDT Ochoa Harrell MD HEMATOLOGY ORDERABLES Performing Organization Address City/[facility] [place] [address] CERNER MILLENNIUM (ABNORMAL) CBC (WITH DIFF) (09/12/2010 12:52 PM EDT) P athologist Signature WBC 8.6 4.0 - 10.0 CERNER x10(3)/mcL MILLENNIUM RBC 4.17 3.93 - CERNER 5.22 MILLENNIUM x10(6)/mcL Hemoglobin 12.1 11.2 - CERNER 15.7 gm/dL MILLENNIUM Hematocrit 37.2 34.0 - CERNER 45.0 % MILLENNIUM MCV 89.2 79.0 - CERNER 94.0 fL MILLENNIUM MCH 29.0 26.6 - CERNER 32.2 pg MILLENNIUM MCHC 32.5 32.0 - CERNER 36.5 gm/dL MILLENNIUM Platelets 252 145 - 370 CERNER x10(3)/mcL MILLENNIUM RDWSD 47.4 (H) 35.0 - CERNER 46.0 fL MILLENNIUM RDWCV 14.5 (H) 10.9 - CERNER 14.4 % MILLENNIUM MPV 10.2 9.0 - 12.0 CERNER fL MILLENNIUM Specimen Anatomical Collection Method Collection Time Receive d Time (Source) Location / / Volume Laterality Blood specimen 09/12/2010 12:52 1 1:00 (specimen) PM EDT PM EDT Ochoa Harrell MD HEMATOLOGY ORDERABLES Performing Organization Address City/State/[place] [address] CERNER MILLENNIUM LACTATE DEHYDROGENASE (09/12/2010 12:52 PM EDT) athologist Signature LDH 180 110 - 220 CERNER unit/L MILLENNIUM Specimen Anatomical Collection Method Collection Time Receive d Time (Source) Location / / Volume Laterality Blood specimen 09/12/2010 12:52 1 1:00 (specimen) PM EDT PM EDT Ochoa Harrell MD CHEMISTRY ORDERABLES Performing Organization Address City/State/[place] [address] CERNER MILLENNIUM (ABNORMAL) COMPREHENSIVE METABOLIC PANEL (NON-FASTING) (09/12/2010 12:52 PM EDT) P athologist Signature Glucose Lvl 159 60 - 199 CERNER mg/dL MILLENNIUM Comment: Diabetes: >=200 mg/dL plus symp toms BUN 14 8 - 18 mg/dL CERNER MILLENNIUM Creatinine 0.93 0.70 - 1.20 mg/dL CERNER MILL ENNIUM [...] 10.5 mg/dL CERNER BELLA NIUM Total Protein 7.4 6.4 - 8.3 gm/dL CERNER MIL LENNIUM Albumin 3.9 3.2 - 5.2 gm/dL CERNER MILLENN IUM AST 13 0 - 30 unit/L CERNER MILLENNIU M ALT 14 0 - 30 unit/L CERNER MILLENNIU M Alk Phos 127 (H) 40 - 104 unit/L CERNER MILLENN IUM Total Bilirubin 0.2 0.2 - 1.3 mg/dL CERNER M ILLENNIUM Bili, Direct 0.1 0.0 - 0.3 mg/dL CERNER MILL ENNIUM Estimated GFR >60 >=60 CERNER MILLENNIU M Comment: The National Kidney Disease Education Pr ogram (NKDEP) has recommended all laboratories report estimated GFR (eGFR) along with plasma creatinine measurements to assist you with recognit ion of early kidney disease. Caveats: ??Plasma creatinine should be a t steady-state (unchanged within the past week). For patient s multiply eGFR by 1.2.MDRD equation has not been validated for pediatric pat ients and is only valid for patients with [...] Location / / Volume Laterality Blood specimen 09/12/2010 12:52 1 1:00 (specimen) PM EDT PM EDT Ochoa Harrell MD CHEMISTRY ORDERABLES Performing Organization Address City/State/ZIP Code Phon e Number [address] LABORATORY [facility] documented in this encounter Visit Diagnoses Not on filedocumented in this encounter Care Teams Portable Grinding Machine Operator Relationship Specialty Start Date End Date Gerry Hackett MD PCP - General 03/14/10 06/18/[address] [place] [address] documented as of this encounter
--- OUTSIDE RECORDS SUMMARY | 2022-02-02 00:34 | XMS_ITS | Encounter Summary ---
:1950 Author Organization [facility] [place] [address] Care Team Providers Name Role Phone G[place] Hackett MD Primary Care Provider [phone] Encounter Details Date Type Department Care Team Description 09/12/2010 Hospital Encounter Laboratory CLINIC, [facility] Ochoa Harrell MD [facility] DR HEMATOLOGY/[place] [address] [place] [address] Social History Tobacco Use Types Packs/Day [...] Salazar MD [facility] ER DR THERESE LEOS-DERMAT [place], [place] [address] (Wo rk) documented as of this encounter Visit Diagnoses Not on filedocumented in this encounter Care Teams Clock Maker Relationship Specialty Start Date End Date G[place] Hackett MD PCP - General 03/14/10 06/18/[address] [place] [address] documented as of this encounter
--- OUTSIDE RECORDS SUMMARY | 2022-02-02 00:34 | XMS_ITS | Encounter Summary ---
:1950 Author Organization [facility] [place] [address] Care Team Providers Name Role Phone Unavailable Primary Care Provider Unavailable Encounter Details Date Type Department Care Team Description 03/07/2010 Office Visit Endocrinology at [facility] Diane Lewis, [facility] [place] [address] [facility] [phone] ENDOCRINOLOGY DE PT. [place], [place] [address] (Wo rk) Social History Tobacco Use Types Packs/Day Years Used Date Never Assessed Sex Assigned at Date Recorded Not on file documented as of this encounter Plan of Treatment Upcoming Encounters Date Type Specialty Care Team Description 04/04/2022 Office Visit Dermatology Celena Salazar MD [facility] ER DR THERESE LEOS-DERMAT [place], [place] [address] (Wo rk) documented as of this encounter Visit Diagnoses Not on filedocumented in this encounter
--- OUTSIDE RECORDS SUMMARY | 2022-02-02 00:34 | XMS_ITS | Encounter Summary ---
:1950 Author Organization [facility] [place] [address] Care Team Providers Name Role Phone [place] Hackett MD Primary Care Provider [phone] Reason for Visit Reason Comments Follow-up Lung Cancer Encounter Details Date Type Department Care Team Description 09/12/2010 Hospital Encounter Hematology and Ochoa Harrell, Non- small cell lung Oncology at [facility] MD cancer [facility] DR [place] MD HEMATOLOGY/ONCOL [id number] [facility] DEPT. [phone] [place] [address] Social History Tobacco Use Types Packs/Day Years Used Date Former Smoker Comments: stopped 14 years ago Sex Assigned at Date Recorded Not on file documented as of this encounter Last Filed Vital Signs Vital Sign Reading Time Taken Comments Blood Pressure 140/60 09/12/2010 2:10 PM EDT Pulse 94 09/12/2010 2:10 PM EDT Temperature 36.8 ??C (98.2 ??F) 09/12/2010 2:10 PM EDT Respiratory Rate - - Oxygen Saturation 94% 09/12/2010 2:10 PM EDT Inhaled Oxygen Concentration - - Weight 146 kg (321 lb 14 oz) 09/12/2010 2:10 PM EDT Height 165 cm (5' 4.96) 09/12/2010 2:10 PM EDT Body Mass Index 53.63 09/12/2010 2:10 PM EDT documented in this encounter Medications at Time [...] 11/01/19 11 documented as of this encounter Progress Notes Ochoa Harrell MD - 09/12/2010 2:31 PM EDT Subjective: Patient ID: Pennie Rodriguez is a 59 y.o. female with resected stage IIIA ([id number]) non-small cell lungcancer in March of 2004. [...] exertion. 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 She reports no hospitalizations, emergency room visits and continues routine carewith her primary care provider. She has no residual adverse events from her adjuvant chemotherapy and sequential postoperative radiation therapy. She reports no significant alopecia, hearing impairment, peripheral neuropathy, [...] this patient's medications and allergies from today, 09/12/2010. I personally reviewed this patient's medications and allergies. SOCIAL HISTORY: I personally reviewed this patient's tobacco history from today, 09/12/2010. Objective: Physical Exam Constitutional: She is oriented [...] reviewed this patient's laboratory studies from today, 09/12/2010. The patient has no clinically significant hematologic, hepatic or renal function abnormalities. These results were reviewed and shared with the patient. RADIOGRAPHIC EVALUATION: I personally reviewed this patient's radiographic studies from today, 09/12/2010 in comparison to their last and baseline evaluation radiographic studies. These results were reviewed with our radiologists and the images, reports and results shared with the patient. She has no evidence of recurrent, progressive or new metastatic disease. She has radiographic findings consistentwith her left pneumonectomy. Assessment and Plan: No problem-specific visit notes found for this encounter. ASSESSMENT: Patient with resected STAGE IIIA non-small cell lung cancer in 2003 status post adjuvantchemotherapy and sequential postoperative radiation [...] again I in a year for follow-up. I agree. PLAN: Patient to return in one year for clinical, laboratory and radiographic reevaluation to include a chest radiograph, chest CT scan and an MRI of the brain. She is to follow-up with her primary care provider. documented in this encounter Plan of Treatment Upcoming Encounters Date Type Specialty Care Team Description 04/04/2022 Office Visit Dermatology Celena Salazar MD [facility] DR THERESE LEOS-DERMAT [place], [place] [address] (Wo rk) documented as of this encounter Visit Diagnoses Diagnosis Non-small cell lung cancer Malignant neoplasm of bronchus and lung, unspecified site documented in this encounter Care Teams Banquet Coordinator Relationship Specialty Start Date End Date [place] Hackett MD PCP - General 03/14/10 06/18/[address] [place] [address] documented as of this encounter
--- OUTSIDE RECORDS SUMMARY | 2022-02-02 00:34 | XMS_ITS | Encounter Summary ---
:1950 Author Organization [facility] [place] [address] Care Team Providers Name Role Phone [place] Hackett MD Primary Care Provider [phone] Encounter Details Date Type Department Care Team Description 03/07/2010 Orders Only Lab [facility] Pratik Cee MD [facility] Martha galan [place] [address] [place] [address] [phone] (Wo rk) Social History Tobacco Use Types Packs/Day Years Used Date Never Assessed Sex Assigned at Date Recorded Not on file documented as of this encounter Plan of Treatment Upcoming Encounters Date Type Specialty Care Team Description 04/04/2022 Office Visit Dermatology Celena Salazar MD [facility] ER DR THERESE LEOS-DERMAT [place], [place] [address] (Wo rk) documented as of this encounter Procedures Procedure Name Priority Date/Time Associated Diagnosis Comme nts CREATININE NE 03/07/2010 12:10 PM Results for this EST procedure are i n the results section . HEMOGLOBIN A1C NE 03/07/2010 12:10 PM Result s for this EST procedure are i n the results section . documented in this encounter Results (ABNORMAL) HEMOGLOBIN A1C (03/07/2010 12:10 PM EST) Analysis Performed At Patho logist Time Signature Hemoglobin A1C 7.3 (H) 4.3 - 6.1 CERNER % MILLENNIUM Est Avg Gluc 163 mg/dL CERNER MILLENNIUM Comment: eAG equivalents for HbA1c percentages: HbA1c(%) ?eAG(mg/dL) 6.0 ?126 6.5 ?140 7.0 ?154 7.5 ?169 8.0 ?183 8.5 ?197 9.0 ?212 9.5 ?226 10.0 ? 240 Limitations: The eAG calculation has not been validated on women, individuals below 18 years old and above 70 years old, and individuals with hemoglobinopathies. Additional resources are available on [facility] ADA website: ??http://professional.diabetes.org/gluc osecalculator.aspx Reference: Chevy PARTIDA, rJ J, Syed R, et al. ??Tr anslating the A1C assay into estimated average glucose values. ??Diabetes Care 2008:31(8):3495-1099. Specimen Anatomical Collection Method Collection Time Receive d Time (Source) Location / / Volume Laterality Blood specimen 03/07/2010 12:10 0 (specimen) PM EST 12:19 PM EST Pratik Cee MD CHEMISTRY ORDERABLES Performing Organization Address City/State/[place] [address] CERNER MILLENNIUM CREATININE, SERUM (03/07/2010 12:10 PM EST) P athologist Signature Creatinine 0.87 0.70 - CERNER 1.20 mg/dL MILLENNIUM Estimated GFR >60 >=60 CERNER MILLENNIUM Comment: The National Kidney Disease Education Pr ogram (NKDEP) has recommended all laboratories report estimated GFR (eGFR) along with plasma creatinine measurements to assist you with recognit ion of early kidney disease. Caveats: ??Plasma creatinine should be a t steady-state (unchanged within the past week). ??Patient age > = 18 years, and for Americans multiply eGFR by 1.2. At present, NKDEP does NOT recommend usi [...] Location / / Volume Laterality Blood specimen 03/07/2010 12:10 0 (specimen) PM EST 12:19 PM EST Pratik Cee MD CHEMISTRY ORDERABLES Performing Organization Address City/State/ZIP Code Phon e Number [address] LABORATORY [facility] documented in this encounter Visit Diagnoses Not on filedocumented in this encounter Care Teams Ignition Expert Relationship Specialty Start Date End Date [place] Hackett MD PCP - General 03/14/10 06/18/[address] [place] [address] documented as of this encounter
--- OUTSIDE RECORDS SUMMARY | 2022-02-02 00:34 | XMS_ITS | Encounter Summary ---
:1950 Author Organization [facility] [address] Care Team Providers Name Role Phone G[place] Hackett MD Primary Care Provider [phone] Encounter Details Date Type Department Care Team Description 09/12/2010 Hospital Encounter XRay at [address] [place] [address] Social History Tobacco Use Types Packs/Day Years Used Date Former Smoker Comments: stopped 14 years ago Sex Assigned at Date Recorded Not on file documented as of this encounter Medications at Time of Discharge Medication Sig Dispensed Refills Start Date End Date pramoxine (PROCTOFOAM) 1 % 0 0 foam [...] Dermatology Celena Salazar MD [facility] ER DR THERESE LEOS[address]DERMAT [place], [place] [address] (Wo rk) documented as of this encounter Visit Diagnoses Not on filedocumented in this encounter Care Teams Radiological Engineer Relationship Specialty Start Date End Date G[place] Hackett MD PCP - General 03/14/10 06/18/[address] [place] [address] documented as of this encounter
--- NOTE | 2022-11-23 13:19 | DI.DEXA_ITS ---
Exam(s) XR DEXA BONE DENSITY W/WO RISHABH EXAM: XR DEXA BONE DENSITY W/WO RISHABH CLINICAL HISTORY: evaluate bone density, HX STEROID THERAPY, POSTMENOPAUSAL ESTROGEN TECHNIQUE: HoloWinkcam Horizon C densitometer analysis of left hip, lumbar spine and left forearm. Lat eral survey image of the thoracic and lumbar spine. COMPARISON: 2008 FINDINGS: Lateral view of the thoracic and lumbar spine shows no evidence of compression fractures. Bone mineral density measurements of the lumbar spine correspond to a total T-score of 0.8, in the n ormal range. This is not significantly changed from the prior exam. Bone mineral density measurements of the left hip correspond to a total T-score of 0.4. The femoral neck T-score is -0.3, in the normal range. This is a an 8.9 percent decrease compared with 2008.. Theleft forearm bone mineral density measurements correspond to a T-score of the distal 3rd of 1.5, in the normal range. The forearm was not analyzed in 2008. IMPRESSION: Normal bone mineral density.
== END 2022-11-23 01:01 ==
PROVIDERS: PCP Student in an Organized Health Care Education/Training Program; Visit Provider Student in an Organized Health Care Education/Training Program
DX: Z78.0 Asymptomatic menopausal state; Z79.899 Other long term (current) drug therapy; Z13.820 Encounter for screening for osteoporosis
CPT/HCPCS: 77080

== ENCOUNTER 2023-09-26 14:49 | Outpatient (CLI) | payer MEDICARE, BC, SELFPAY ==
[2023-09-26 13:29] LABS: Abs Immature Grans 0.04 10^3/uL (0.0-0.06); Absolute Basophil Count 0.05 10^3/uL (0.0-0.2); Absolute Eosinophil Count 0.09 10^3/uL (0.0-0.7); Absolute Lymphocyte Count 1.41 10^3/uL (1.2-3.4); Absolute Monocyte Count 0.71 10^3/uL (0.1-0.8); Absolute Neutrophil Count 7.96 10^3/uL (1.2-6.7); Basophils % 0.5 %; Eosinophils % 0.9 %; HCT 36.1 % (36.0-46.0); HGB 11.5 g/dL (11.2-15.7); Immature Grans % 0.4 %; Lymphocytes % 13.7 %; MCH 29.2 pg (27.0-33.0); MCHC 31.9 % (32.0-36.0); MCV 92 fL (80-95); MPV 10.8 fL (8.0-11.0); Monocytes % 6.9 %; Neutrophils % 77.6 %; Platelet Count 246 10^3/uL (130-400); RBC 3.94 10^6/uL (3.93-5.22); RDW 13.9 % (11.7-14.6); RDW-SD 46.8 fL; WBC 10.26 10^3/uL (4.4-10.8)
[2023-09-26 14:01] LABS: Iron 43 ug/dL (50-170); Total Iron Binding Capacity 267 ug/dL (250-450); Transferrin Sat 16 % (15-50)
[2023-09-26 14:22] LABS: ALT 18 U/L (14-59); AST 13 U/L (15-37); Albumin 3.5 g/dL (3.4-5.0); Alkaline Phosphatase 133 U/L (46-116); Anion Gap 7.4 mmol/L (3-11); BUN 26 mg/dL (7-18); Bilirubin, Total 0.4 mg/dL (0.2-1.0); CO2 30.6 mmol/L (21.0-32.0); CREATININE 1.5 mg/dL (0.55-1.02); Calcium 9.1 mg/dL (8.5-10.1); Calculated LDL 66 mg/dL (<100); Chloride 103 mmol/L (98-107); Cholesterol 145 mg/dL (<200); Estimated GFR 36.34 (mL/min/1.73m2); Ferritin 69 ng/mL (8-252); Glucose 181 mg/dL (74-106); HDL Cholesterol 57 mg/dL (40-60); Magnesium 1.9 mg/dL (1.8-2.4); Potassium 4.4 mmol/L (3.5-5.1); Sodium 141 mmol/L (136-145); TSH (W/Ref FT4) 2.97 uIU/mL (0.36-3.74); Total Protein 7.5 g/dL (6.4-8.2); Triglyceride 112 mg/dL (<150)
== END 2023-09-26 14:50 | disposition home or self-care (01) ==
LOC: LBO 14:49
PROVIDERS: PCP Student in an Organized Health Care Education/Training Program; Visit Provider Student in an Organized Health Care Education/Training Program
DX: Z91.89 Other specified personal risk factors, not elsewhere classified (principal); I10 Essential (primary) hypertension; E83.9 Disorder of mineral metabolism, unspecified; E11.65 Type 2 diabetes mellitus with hyperglycemia; Z13.220 Encounter for screening for lipoid disorders
CPT/HCPCS: 80053; 80061; 82728; 83540; 83550; 83735; 84443; 85025

== ENCOUNTER 2024-01-10 12:14 | Outpatient (CLI) | payer MEDICARE, BC, SELFPAY ==
--- NOTE | 2024-01-10 12:00 | RT.EKG_ITS ---
APPROVED REPORT Exam: Resting ECG Reason for Exam: Irregular heart rythm Patient Location: O HR:101 bpm ECG Measurements Heart Rate 101 AXIS IA 148 P 74 QRSd 99 QRS 78 QT 361 T 49 QTc 468 Conclusion Sinus tachycardia...rate> 99 Ventricular trigeminy...trigeminy string>6 w/ V complexes Minimal ST depression, lateral leads...ST <-0.04mV, I aVL V5 V6
== END 2024-01-10 12:15 | disposition home or self-care (01) ==
LOC: DI.KIM 12:15
PROVIDERS: PCP Student in an Organized Health Care Education/Training Program; Visit Provider Family Medicine
DX: I49.9 Cardiac arrhythmia, unspecified (principal)
CPT/HCPCS: 93010

== ENCOUNTER 2024-01-10 12:50 | Observation (INO) | payer MEDICARE, BC, SELFPAY ==
[2024-01-10] VITALS (14 sets, daily range): BP systolic 134–164; BP diastolic 61–96; PULSE 47–102; RESP 15–24; TEMP 36.2–36.8; O2SAT 95–100
--- NOTE | 2024-01-10 13:00 | RT.EKG_ITS ---
APPROVED REPORT Exam: Resting ECG Reason for Exam: atrial fibrillation Patient Location: E HR:105 bpm ECG Measurements Heart Rate 105 AXIS MO 144 P 77 QRSd 101 QRS 81 QT 353 T 68 QTc 465 Conclusion Sinus tachycardia...rate> 99 Ventricular trigeminy...trigeminy string>6 w/ V complexes Sinus tachycardia rate of 105 with interventricular conduction delay and a QRS of 101 ms. Frequent P VCs in a pattern of ventricular trigeminy. Left lateral chest wall ST segment depressions. Appears similar to prior dated earlier today. No significant ST segment elevations.
--- NOTE | 2024-01-10 13:02 | W.ED.GENAD ---
Discharge Plan Disposition Patient Disposition: Admit to [facility] Condition: Serious Discharge Details Clinical Impression: Respiratory failure, COPD (chronic obstructive pulmonary disease), CHF (congestive heart failure), Lung cancer Admit Date/Time: 01/10/24 20:56 Admit Provider: Marlon Stern Attending Provider: Marlon Stern Primary Care Provider: Amanda Barnett ED Provider: Josee Stovall Discharge Data Discharge Date/Time-TO BE ENTERED AT DEPARTURE: 01/10/24 21:38 HPI <TERRA Alvarez - Last Filed: 01/11/24 07:58> General Date/Time Provider Initiated Documentation: 01/10/24 13:02. HPI Narrative: 73 year-old female presents to ED today by POV/ambulating with a chief complaint of sent over by PCP visit for acute visit for increased O2 requirement in COPD. Patient has 1 lung from resection due to lung CA in remote past. EKG was done at PCP office which notes trigeminy which is new for this patient's baseline with onset of increased O2 from nighttime use to almost 24/7 for the past couple weeks. Quality described as not painful, no radiation to chest pain, nausea/vomiting, endorses mild dizziness, denies cough, denies fever/chills. Severity is described as moderate. Palliating factors include nothing specific. Provoking factors include nothing specific. Events leading up to the incident/Associated Symptoms: Patient questions whether this all started from shredding moldy papers from her cellar. Patient not anticoagulated. Related Data Home Medications ?Medication ?Instructions ?Recorded ?Confirmed cyanocobalamin (vitamin B-12) 1,000 mcg PO DAILY 06/20/12 01/10/24 1,000 mcg tablet (Vitamin B-12) docusate sodium 100 mg capsule 100 mg PO PRN 06/20/12 01/10/24 (Colace) hydrocortisone 1 %-pramoxine 1 % 10 gm RC PRN #1 tube 10/19/14 01/10/24 rectal foam (Proctofoam HC) aspirin 81 mg tablet,delayed 81 mg PO DAILY 01/17/16 01/10/24 release (Aspir-) Oxygen #1 ea 06/20/18 01/10/24 Nebulizer #1 ea 05/29/19 01/10/24 pen needle, diabetic 31 gauge x #300 ea 09/01/19 01/10/24 5/16 (Comfort EZ Pen Pierre Part) triamcinolone acetonide 0.1 % 1 applic topical DAILY #120 mL 05/25/20 01/10/24 lotion magnesium oxide 400 mg PO DAILY 10/04/20 01/10/24 cholecalciferol (vitamin D3) 25 25 mcg PO DAILY 11/07/20 01/10/24 mcg (1,000 unit) capsule nystatin 100,000 unit/gram topical 1 applic topical BID #30 grams 11/25/20 01/10/24 ointment triamcinolone acetonide 0.1 % 1 applic topical DAILY #453.6 grams 05/13/21 01/10/24 topical cream aluminum hydrox-magnesium carb 160 4 tab PO HS PRN 07/20/21 01/10/24 mg-105 mg chewable tablet (Gaviscon Extra Strength) fluticasone propionate 50 2 spray NS DAILY PRN nasal 09/14/21 01/10/24 mcg/actuation nasal congestion #16 grams spray,suspension lancets 33 gauge (StockRadarTouch Delica #360 ea 01/16/22 01/10/24 Lancets) ipratropium 0.5 mg-albuterol 3 mg 3 ml inhalation Q6H PRN wheezing 03/24/22 01/10/24 (2.5 mg base)/3 mL nebulization or SOB #90 mL soln famotidine 40 mg tablet 40 mg PO QHS PRN GERD flare #90 01/31/23 01/10/24 tabs ammonium lactate 12 % lotion 1 applic topical BID PRN dry flaky 02/13/23 01/10/24 skin #225 grams flash glucose sensor (FreeStyle #6 ea 02/13/23 01/10/24 Omkar 14 Day Sensor kit) blood sugar diagnostic (StockRadaruch #360 strips 02/24/23 01/10/24 Ultra Test strips) glimepiride 1 mg tablet 1 mg PO QAM #90 tabs 03/22/23 01/10/24 atorvastatin 40 mg tablet See Rx Instructions .Route 07/15/23 01/10/24 .COMPLEX #90 tabs lisinopril 10 mg tablet 10 mg PO DAILY #90 tabs 07/15/23 01/10/24 lisinopril 5 mg tablet 5 mg PO DAILY #90 tabs 07/15/23 01/10/24 insulin glulisine U-100 100 See Rx Instructions subcut BID #15 07/21/23 01/10/24 unit/mL subcutaneous pen (Apidra mL SoloStar U-100 Insulin) albuterol sulfate 90 mcg/actuation See Rx Instructions .Route 08/07/23 01/10/24 aerosol inhaler .COMPLEX #25.5 grams tiotropium bromide 18 mcg capsule 1 cap inhalation DAILY #90 caps 08/07/23 01/10/24 with inhalation device (Spiriva with HandiHaler) hydrochlorothiazide 12.5 mg tablet 12.5 mg PO DAILY #90 tab-caps 08/23/23 01/10/24 fluticasone 100 mcg-salmeterol 50 1 inh inhalation BID #180 ea 09/28/23 01/10/24 mcg/dose blistr powdr for inhalation (Wixela Inhub) linagliptin 5 mg tablet (Tradjenta) 5 mg PO DAILY #90 tabs 09/28/23 01/10/24 insulin degludec 100 unit/mL (3 32 unit subcut HS 01/10/24 01/10/24 mL) subcutaneous pen (Tresiba FlexTouch U-100 insulin) Previous Rx's ?Medication ?Instructions ?Recorded Nebulizer #1 ea 05/29/19 pen needle, diabetic 31 gauge x #300 ea 09/01/1909/04 (Comfort EZ Pen Pierre Part) triamcinolone acetonide 0.1 % 1 applic topical DAILY #120 mL 05/25/20 lotion nystatin 100,000 unit/gram topical 1 applic topical BID #30 grams 11/25/20 ointment triamcinolone acetonide 0.1 % 1 applic topical DAILY #453.6 grams 05/13/21 topical cream fluticasone propionate 50 2 spray NS DAILY PRN nasal 09/14/21 mcg/actuation nasal congestion #16 grams spray,suspension lancets 33 gauge (OneTouch Delica #360 ea 01/16/22 Lancets) ipratropium 0.5 mg-albuterol 3 mg 3 ml inhalation Q6H PRN wheezing 03/24/22 (2.5 mg base)/3 mL nebulization or SOB #90 mL soln famotidine 40 mg tablet 40 mg PO QHS PRN GERD flare #90 01/31/23 tabs ammonium lactate 12 % lotion 1 applic topical BID PRN dry flaky 02/13/23 skin #225 grams flash glucose sensor (FreeStyle #6 ea 02/13/23 Omkar 14 Day Sensor kit) blood sugar diagnostic (StockRadarTouch #360 strips 02/24/23 Ultra Test strips) glimepiride 1 mg tablet 1 mg PO QAM #90 tabs 03/22/23 atorvastatin 40 mg tablet See Rx Instructions .Route 07/15/23 .COMPLEX #90 tabs lisinopril 10 mg tablet 10 mg PO DAILY #90 tabs 07/15/23 lisinopril 5 mg tablet 5 mg PO DAILY #90 tabs 07/15/23 insulin glulisine U-100 100 See Rx Instructions subcut BID #15 07/21/23 unit/mL subcutaneous pen (Apidra mL SoloStar U-100 Insulin) albuterol sulfate 90 mcg/actuation See Rx Instructions .Route 08/07/23 aerosol inhaler .COMPLEX #25.5 grams tiotropium bromide 18 mcg capsule 1 cap inhalation DAILY #90 caps 08/07/23 with inhalation device (Spiriva with HandiHaler) hydrochlorothiazide 12.5 mg tablet 12.5 mg PO DAILY #90 tab-caps 08/23/23 fluticasone 100 mcg-salmeterol 50 1 inh inhalation BID #180 ea 09/28/23 mcg/dose blistr powdr for inhalation (Wixela Inhub) linagliptin 5 mg tablet (Tradjenta) 5 mg PO DAILY #90 tabs 09/28/23 Allergies Allergy/AdvReac Type Severity Reaction Status Date / Time morphine Allergy vomit Verified 01/10/24 13:00 exenatide (From [place]) AdvReac Intermediate gi upset Verified 01/10/24 13:00 General Stated Complaint: GenMedical KAREN: 3 Review of Systems <TERRA Alvarez - Last Filed: 01/11/24 07:58> All systems reviewed & are unremarkable except as noted in HPI and below Exam <TERRA Alvarez - Last Filed: 01/11/24 07:58> Narrative Exam Narrative: GENERAL APPEARANCE: Obesity at baseline, non-toxic, awake and alert, atraumatic, no acute distress. SKIN: Warm, pink, dry, intact, without rashes/lesions/ulcerations. HEAD: Normocephalic, atraumatic, normal hair distribution for gender/age. EYES: Normal conjunctiva, no exudates on lids/lashes. ENT: Nares patent, no circumoral cyanosis, no facial swelling NECK: Supple, trachea midline, painless cervical ROM. LUNGS/CHEST: Lungs CTA without rhonchi/rales/wheezes- absent lung sounds on L, mildly labored respirations, normal A/P diameter, symmetrical expansion, no chest wall deformity HEART (CV/PV): Regular rate and rhythm without murmur, no peripheral edema, no JVD. ABDOMEN: Soft, non-distended, no guarding, no tenderness. MSK: Normal ROM, no swelling/deformity to bilateral UEs or LEs, moving all extremities without weakness, no cyanosis, spine midline without tenderness, normal curvature. NEURO: Mental Status AAOx4 - alert to person, place, time, events No facial droop, no forehead involvement. Motor: No focal weakness - strength 5/5 in bilateral UEs and LEs, proximal and distal, symmetric. Sensory: sensation intact to light touch globally. Gait normal: patient ambulated without ataxia into ED room. PSYCH: euthymic, cooperative, pleasant, appropriate speech Course <TERRA Alvarez - Last Filed: 01/11/24 07:58> Vital Signs Vital signs: Vital Signs Temperature 36.2 C L 01/10/24 12:55 Pulse 58 L 01/10/24 12:55 Respiratory Rate 24 01/10/24 12:55 Blood Pressure 134/78 01/10/24 12:55 Pulse Oximetry 96 01/10/24 12:55 Temperature 36.2 C L 01/10/24 12:55 Temperature Source Temporal Artery Scan 01/10/24 12:55 Pulse 58 L 01/10/24 12:55 Respiratory Rate 24 01/10/24 12:55 Blood Pressure 134/78 01/10/24 12:55 Blood Pressure Position Sitting 01/10/24 12:55 Pulse Oximetry 96 01/10/24 12:55 Oxygen Delivery Method Nasal Cannula 01/10/24 12:55 Oxygen Flow Rate 2 01/10/24 12:55 Medical Decision Making <TERRA Alvarez - Last Filed: 01/11/24 07:58> This dictation utilizes [id number] dictation software and may contain unedited grammatical errors. 73 year-old female presents to ED today by POV/ambulating with a chief complaint of sent over by PCP visit for acute visit for increased O2 requirement in COPD. Patient has 1 lung from resection due to lung CA in remote past. EKG was done at PCP office which notes trigeminy which is new for this patient's baseline with onset of increased O2 from nighttime use to almost 24/7 for the past couple weeks. Quality described as not painful, no radiation to chest pain, nausea/vomiting, endorses mild dizziness, denies cough, denies fever/chills. Severity is described as moderate. Palliating factors include nothing specific. Provoking factors include nothing specific. Events leading up to the incident/Associated Symptoms: Patient questions whether this all started from shredding moldy papers from her cellar. Patients' medical history: Renal insufficiency, vertigo, COPD, anemia, CKD, T2DM, asthma, adenocarcinoma of lung with pneumonectomy, stasis dermatitis, obesity, GERD, hypertension. Family and social history: Lives independently, no sick contacts. Pertinent exam findings / vital signs include absent left lung sounds, no severe rhonchi on the right. Differential / pathologies of concern include pneumonia, COPD exacerbation, hypoxic respiratory failure, chronic respiratory failure, unlikely sepsis, CHF possible. Diagnostic studies of: -CBC, CMP, D-dimer, serial troponins, lipase, BNP, EKG. -CBC shows no leukocytosis at 7.6, no anemia, no left shift -D-dimer elevated at 902, age-adjusted is positive, does not meet years criteria for patient has high risk history -Chronic creatinine elevation with a GFR of 33, no other major abnormalities on CMP -Initial troponin negative, repeat pending -BNP significantly elevated at 6150, consider CHF versus chronic elevation due to renal dysfunction - no priors to compare to -EKG shows trigeminy, sinus tach 105 with slightly widened QRS on PVCs, some lateral ST depressions, QTc 465, normal axis, no ST elevations -CTA Chest shows L pneumonectomy, no other pathology, no PE Interventions of: -DuoNeb, prednisone, magnesium for COPD exacerbation > re-eval by NALLELY PhamC after sign-out. Potential for trial of ABX at-home, short interval outpatient EHCO if patient is comfortable with this, but may need Pulmonology consult ED Course/Assessment/Plan: 73-year-old female with history of left pneumonectomy presents with out respiratory syndrome but is having increased O2 demand at home over weeks with some new trigeminy on EKG, her PCP provider question whether there is some demand ischemia occurring over the short-term past. There is some lateral ST depressions which is nonspecific and could be related to COPD exacerbation, the patient had no evidence of PE on CTA, no severe pulmonary edema or pneumonia. Initial troponin negative, repeats are pending at time of signout, while this is rounding patient will receive DuoNeb as well as 1 dose of p.o. prednisone and magnesium IV infusion for shortness of breath, with improvement and may be reasonable to have the patient trial a dual antibiotic therapy like Augmentin plus azithromycin for acute exacerbation of chronic bronchitis with prednisone course as an outpatient but they may need cardiology/pulmonology consult based on the risk factors, otherwise they have been stable for weeks at home with mildly increased oxygen demand by their nasal cannula, using 24/7 instead of nocturnal. Findings not consistent with severe respiratory distress, sepsis, PE, acute coronary syndrome. Disposition of Acute on Chronic Hypoxic Respiratory Failure. Patient verbalized understanding of the plan and return to ED criteria and engaged in shared decision making. Medical Records Medical records reviewed: Yes I reviewed the patient's medical records. Imaging Data Radiologic Study: Attestation: I personally reviewed and interpreted this imaging study as follows: Imaging: CT Scan Radiologist's impression: EXAM: CT CHEST PE CTA CLINICAL HISTORY: SOB, hx lung CA, has 1 lung, elev d-dimer. TECHNIQUE: Imaging Protocol: Axial CT angiography was performed with multi-slice acquisition and multi-planar reconstructions as well as axial, coronal and sagittal MIP reconstructions. CONTRAST MATERIAL: Intravenous: Omnipaque 350 Contrast volume:100 ml COMPARISON: CR CHEST 2 VIEWS PA,LAT from 02/09/2016 FINDINGS: Pulmonary Arteries: No evidence of filling defect to suggest pulmonary emboli. Tracheobronchial tree: No mucous plugging. Mediastinum and Rand: Mediastinum is shifted into the left chest. No dominant adenopathy. Pulmonary parenchyma: Status post left lobectomy. Small amount of residual fluid. Pleura: Small amount of residual fluid in the left lung cavity status post pneumonectomy. Trace right pleural effusion. Heart: The heart is not dilated. Mild coronary artery calcifications are seen. Aorta: Thoracic aorta non-dilated. No dissection. Upper abdomen: No acute findings. Diverticulum of the descending duodenum. Bones: Unremarkable for age. Tubes, Catheters, and Lines: None Soft tissues: Unremarkable. IMPRESSION: No evidence of pulmonary embolism. Status post left pneumonectomy. No evidence of mass or adenopathy. Lab Data Lab results reviewed: Yes I reviewed the patient's lab results. Labs: Laboratory Tests Range/Units 01/10/24 01/10/24 13:10 13:20 WBC (4.4-10.8) 10^3/uL 10.68 RBC (3.93-5.22) 10^6/uL 3.92 L Hgb (11.2-15.7) g/dL 11.4 Hct (36.0-46.0) % 36.5 MCV (80-95) fL 93 MCH (27.0-33.0) pg 29.1 MCHC (32.0-36.0) % 31.2 L RDW (11.7-14.6) % 14.6 Plt Count (130-400) 10^3/uL 226 MPV (8.0-11.0) fL 10.7 Immature Gran % % 0.6 Neutrophils % % 79.1 Lymphocytes % % 9.6 Monocytes % % 9.6 Eosinophils % % 0.6 Basophils % % 0.5 Nucleated RBC % (0.0-0.3) % 0.0 Absolute Neutrophils (1.2-6.7) 10^3/uL 8.45 H Absolute Lymphocytes (1.2-3.4) 10^3/uL 1.03 L Absolute Monocytes (0.1-0.8) 10^3/uL 1.03 H Absolute Eosinophils (0.0-0.7) 10^3/uL 0.06 Absolute Basophils (0.0-0.2) 10^3/uL 0.05 D-Dimer (<500) ng/mlFEU 902 H Sodium (136-145) mmol/L 138 Potassium (3.5-5.1) mmol/L 4.2 Chloride (98-107) mmol/L 101 Carbon Dioxide (21.0-32.0) mmol/L 26.8 Anion Gap (3-11) mmol/L 10.2 BUN (7-18) mg/dL 36 H Creatinine (0.55-1.02) mg/dL 1.6 H Est GFR (CKD-EPI 2020) (mL/min/1.73m2) 33.42 Glucose (74-106) mg/dL 139 H Calcium (8.5-10.1) mg/dL 9.8 Total Bilirubin (0.2-1.0) mg/dL 0.51 AST (15-37) U/L 16 ALT (14-59) U/L 19 Alkaline Phosphatase (46-116) U/L 96 Troponin I (<or=51) ng/L 23 NT-Pro-B Natriuret Pep (<300) pg/mL 6150 H Total Protein (6.4-8.2) g/dL 7.9 Albumin (3.4-5.0) g/dL 3.6 Lipase (16-77) U/L 18 COVID-19 Source Nasopharynx SARS-CoV-2 (PCR) (Negative) Negative Influenza Type A (PCR) (Negative) Negative Influenza Type B (PCR) (Negative) Negative RSV (PCR) (Negative) Negative Quality:SDOH Health Related Social Needs: Health related social needs inadequate housing <TERRA Pham - Last Filed: 01/10/24 21:42> This dictation utilizes [id number] dictation software and may contain unedited grammatical errors. 73 year-old female presents to ED today by POV/ambulating with a chief complaint of sent over by PCP visit for acute visit for increased O2 requirement in COPD. Patient has 1 lung from resection due to lung CA in remote past. EKG was done at PCP office which notes trigeminy which is new for this patient's baseline with onset of increased O2 from nighttime use to almost 24/7 for the past couple weeks. Quality described as not painful, no radiation to chest pain, nausea/vomiting, endorses mild dizziness, denies cough, denies fever/chills. Severity is described as moderate. Palliating factors include nothing specific. Provoking factors include nothing specific. Events leading up to the incident/Associated Symptoms: Patient questions whether this all started from shredding moldy papers from her cellar. Patients' medical history: Renal insufficiency, vertigo, COPD, anemia, CKD, T2DM, asthma, adenocarcinoma of lung with pneumonectomy, stasis dermatitis, obesity, GERD, hypertension. Family and social history: Lives independently, no sick contacts. Pertinent exam findings / vital signs include absent left lung sounds, no severe rhonchi on the right. Differential / pathologies of concern include pneumonia, COPD exacerbation, hypoxic respiratory failure, chronic respiratory failure, unlikely sepsis, CHF possible. Diagnostic studies of: -CBC, CMP, D-dimer, serial troponins, lipase, BNP, EKG. -CBC shows no leukocytosis at 7.6, no anemia, no left shift -D-dimer elevated at 902, age-adjusted is positive, does not meet years criteria for patient has high risk history -Chronic creatinine elevation with a GFR of 33, no other major abnormalities on CMP -Initial troponin negative, repeat pending -BNP significantly elevated at 6150, consider CHF versus chronic elevation due to renal dysfunction - no priors to compare to -EKG shows trigeminy, sinus tach 105 with slightly widened QRS on PVCs, some lateral ST depressions, QTc 465, normal axis, no ST elevations -CTA Chest shows L pneumonectomy, no other pathology, no PE Interventions of: -DuoNeb, prednisone, magnesium for COPD exacerbation > re-eval by Josee Stovall PA-C after sign-out. Potential for trial of ABX at-home, short interval outpatient [place] if patient is comfortable with this, but may need Pulmonology consult ED Course/Assessment/Plan: 73-year-old female with history of left pneumonectomy presents with out respiratory syndrome but is having increased O2 demand at home over weeks with some new trigeminy on EKG, her PCP provider question whether there is some demand ischemia occurring over the short-term past. There is some lateral ST depressions which is nonspecific and could be related to COPD exacerbation, the patient had no evidence of PE on CTA, no severe pulmonary edema or pneumonia. Initial troponin negative, repeats are pending at time of signout, while this is rounding patient will receive DuoNeb as well as 1 dose of p.o. prednisone and magnesium IV infusion for shortness of breath, with improvement and may be reasonable to have the patient trial a dual antibiotic therapy like Augmentin plus azithromycin for acute exacerbation of chronic bronchitis with prednisone course as an outpatient but they may need cardiology/pulmonology consult based on the risk factors, otherwise they have been stable for weeks at home with mildly increased oxygen demand by their nasal cannula, using 24/7 instead of nocturnal. Findings not consistent with severe respiratory distress, sepsis, PE, acute coronary syndrome. Disposition of Acute on Chronic Hypoxic Respiratory Failure. Patient verbalized understanding of the plan and return to ED criteria and engaged in shared decision making. 1600, LAB assumed care of patient, patient resting comfortably in room, crackles at base of right lung, BNP elevated, no obvious signs of COPD exacerbation, will give 40 mg of Lasix, patient has an elevated BNP and has a small pericardial effusion with cardiomegaly and a pleural effusion will treat for CHF although patient will likely need a formal echocardiogram. Will give 40 mg of Lasix IV. Ambulatory trial was obtained after patient voided approximately 1000 cc of urine. She states she feels mild improvement with was unable to take more than 2-3 steps in the emergency department without becoming hypoxic to 8788% despite being on 2 L. Patient is not oxygen dependent, she uses or has used oxygen in the past at night only. In the past few weeks she has declined significantly she is not entirely sure the cause. She states she does live with a disabled son he is unable to care for her. She is unable to take more than 2-3 steps without having to stop and catch her breath. At this time patient is in respiratory failure despite using oxygen which is relatively new for her and I think would benefit from overnight diuresis plus minus treatment for her COPD with nebs. I see no obvious indication for steroids at this time. Troponins of negative x 2 that significant ischemia on EKG. Case was discussed with Dr. Boles who will admit patient for respiratory failure with concern for chf. [facility] <TERRA Alvarez - Last Filed: 01/11/24 07:58> All Active Problems Lung cancer (Chronic) CHF (congestive heart failure) (Chronic) COPD (chronic obstructive pulmonary disease) (Chronic) Respiratory failure (Acute) Acute and chronic respiratory failure with hypoxia (Acute) Ventricular trigeminy (Acute) Driving safety issue (Acute) When vertigo is active (she will need RCT as she cannot drive with active vertigo.) >> grounded when vertigo is active.. Vertigo (Acute) Per ER report in [place] Hypertrophic toenail (Acute) Does anyone make HV? [ ] Podiatry PRN Xeroderma (Acute) Hemoglobin A1c above reference range (Acute) Nocturnal polyuria (Acute) Postmenopausal estrogen deficiency (Chronic) Requesting DEXA scan At risk for osteoporosis (Acute) Hx smoking, PPI and prednisone use. Chronic obstructive lung disease (Acute 02/20/02) FEV1 0.98 (34%PRED, 58% FVC) FOLLOWING Left PNEUMONECTOMY; home O2 since lung surg 2003 Secondary anemia (Acute 01/20/05) Mild improvement, 08/2021 (11.9) .. Hx: due to chemotherapy; [place] 11.5 [place] [facility] [place] [facility] [place] also due to CKD Chronic kidney disease (Acute) stage 3. [facility] [place] Denilson Rendon MD 05/19/18 Decreased stamina (Acute) Fatigue (Acute) Caregiver stress (Chronic) Son @ home, Psych Disorder affecting ADL, including worsening paranoia. Skin lesion of breast (Acute) Appears as shira kerat .. Actinic keratosis (Acute) 10/06/20 destruction of lesion, left cheek, left nasal lip, right paranasal, right nasal bridge Diabetes mellitus (Chronic) dx 06/2003, co-managed ; goal A1c <7.5; most labs at [facility] Confusing mix of meds with recent changes 2' Cr levels being affected. Appreciate re-eval, along with diet review by Latoya! 12/13/17 ik Met with Nephro ([facility] [place] glad of no microhematuria .. meds and diet reviewed, trialing mild changes, d/c glimepuride. Diabetes mellitus type 2, uncontrolled (Acute 04/09/17) dx 06/2003, co-managed ; goal A1c <7.5; most labs [place] [facility] [place] Type 2 diabetes mellitus with stage 3 chronic kidney disease, with long-term current use of insulin [place] [facility] [place] A1c < 7.5 .. 6.8 today (June 2017)! .. down from 8/7.6/8.2 in 2017. Cr 1.42 03/2017, 1.65 (07/17/17). Apr 2017 [facility] [place]o note mentions Nephro referral, placing per 07/17/16 lab results. Stressful life events affecting family and household (Acute) Counseling on health promotion and disease prevention (Acute) Adenocarcinoma of lung (Chronic 03/22/04) Asthma (Acute 05/15/11) Oxygen desaturation (Chronic 03/2004) Family history of colon cancer (Acute 05/15/11) Stasis dermatitis (Acute 05/12/02) Hx of pneumonectomy (Chronic 03/2004) Left lung removed, sent home with oxygen Vitamin D deficiency (Acute 12/26/10) Osteoarthritis (Acute 01/12/10) mild R hip on x-ray/clinical Obesity (Acute 05/12/02) Good weight loss, 290 today .. down from 311 last year. Hyperlipidemia (Acute 08/21/03) Gastroesophageal reflux disease (Acute 05/19/05) CHRONIC PRILOSEC OTC Essential hypertension (Chronic 09/14/03) Hx elevatd DBP, but she monitors closely. Meds tolerated. Low, but asympto, BP today, 01/29/18. Low normal/baseline, 07/2018. ik Chronic osteoarthritis (Acute 05/15/11) Medical History Smoker (05/15/11) QUIT? Renal insufficiency (2018) Seeing Nephro; improved. Surgical History pneumonectomy (04/20/04) [place] [facility] [place]illect[place] and adenoidectomy (03/02/10) Extraction of cataract (~01/2015) [facility] Family History Mother , stroke, pneumonia at age 82. Personal history of malignant neoplasm Father , suicide at age 75. No problems noted. Sister Age: 71 No problems noted. Brother , bowel obstruction at age 46. No problems noted. 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 New trigeminy and st depressions on EKG. CTA Chest PE negative, no pulm edema, chronic renal disease with BNP >6k, no PNA seen. Awaiting repeat trops, getting DuoNeb/prednisone/magnesium for SOB- re-eval and possible consult vs trial of dual ABX and prednisone outpatient. Last updated by Reagan Meyer PA at 01/10/24 15:26 POCUS Exam (ED) <Bart Gaytan MD - Last Filed: 01/10/24 19:51> Limited Cardiac Exam DATE OF EXAM: 01/10/24 TIME OF EXAM: 19:50 PROVIDER THAT PERFORMED THE STUDY: Bart Gaytan REASON FOR EXAM: Dyspnea VISUALIZED STRUCTURES: Left ventricle and Right ventricle VIEW OBTAINED: Parasternal long-axis PERTINENT FINDINGS/IMPRESSION: No LV dysfunction (difficult exam but no obvious wall motion abnormalities) Exam complete
[2024-01-10 13:31] LABS: Abs Immature Grans 0.06 10^3/uL (0.0-0.06); Absolute Basophil Count 0.05 10^3/uL (0.0-0.2); Absolute Eosinophil Count 0.06 10^3/uL (0.0-0.7); Absolute Lymphocyte Count 1.03 10^3/uL (1.2-3.4); Absolute Monocyte Count 1.03 10^3/uL (0.1-0.8); Absolute Neutrophil Count 8.45 10^3/uL (1.2-6.7); Basophils % 0.5 %; Eosinophils % 0.6 %; HCT 36.5 % (36.0-46.0); HGB 11.4 g/dL (11.2-15.7); Immature Grans % 0.6 %; Lymphocytes % 9.6 %; MCH 29.1 pg (27.0-33.0); MCHC 31.2 % (32.0-36.0); MCV 93 fL (80-95); MPV 10.7 fL (8.0-11.0); Monocytes % 9.6 %; Neutrophils % 79.1 %; Platelet Count 226 10^3/uL (130-400); RBC 3.92 10^6/uL (3.93-5.22); RDW 14.6 % (11.7-14.6); RDW-SD 49.8 fL; WBC 10.68 10^3/uL (4.4-10.8)
[2024-01-10 13:55] LABS: ALT 19 U/L (14-59); AST 16 U/L (15-37); Albumin 3.6 g/dL (3.4-5.0); Alkaline Phosphatase 96 U/L (46-116); Anion Gap 10.2 mmol/L (3-11); BUN 36 mg/dL (7-18); Bilirubin, Total 0.51 mg/dL (0.2-1.0); CO2 26.8 mmol/L (21.0-32.0); CREATININE 1.6 mg/dL (0.55-1.02); Calcium 9.8 mg/dL (8.5-10.1); Chloride 101 mmol/L (98-107); Estimated GFR 33.42 (mL/min/1.73m2); Glucose 139 mg/dL (74-106); Lipase 18 U/L (16-77); NT-proBNP 6150 pg/mL (<300); Potassium 4.2 mmol/L (3.5-5.1); Sodium 138 mmol/L (136-145); Total Protein 7.9 g/dL (6.4-8.2); Troponin I 23 ng/L (<or=51)
[2024-01-10 13:56] LABS: COVID-19 PCR Negative (Negative); Influenza A PCR Negative (Negative); Influenza B PCR Negative (Negative); RSV PCR Negative (Negative)
[2024-01-10 13:57] LABS: Source Nasopharynx
[2024-01-10 14:06] LABS: D-Dimer 902 ng/mlFEU (<500)
[2024-01-10] MEDS: Omnipaque 350 MG/ML 100 ML BTL IJ (14:30)
[2024-01-10] MEDS: Normal Saline - Diluent 50 ML VIAL IJ (14:34)
--- NOTE | 2024-01-10 14:50 | DI.CT_ITS ---
Exam(s) CT CHEST PE CTA EXAM: CT CHEST PE CTA CLINICAL HISTORY: SOB, hx lung CA, has 1 lung, elev d-dimer. TECHNIQUE: Imaging Protocol: Axial CT angiography was performed with multi-slice acquisition and mu lti-planar reconstructions as well as axial, coronal and sagittal MIP reconstructions. CONTRAST MATERIAL: Intravenous: Omnipaque 350 Contrast volume:100 ml COMPARISON: CR CHEST 2 VIEWS PA,LAT from 02/09/2016 FINDINGS: Pulmonary Arteries: No evidence of filling defect to suggest pulmonary emboli. Tracheobronchial tree: No mucous plugging. Mediastinum and Rand: Mediastinum is shifted into the left chest. No dominant adenopathy. Pulmonary parenchyma: Status post left lobectomy. Small amount of residual fluid. Pleura: Small amount of residual fluid in the left lung cavity status post pneumonectomy. Trace righ t pleural effusion. Heart: The heart is not dilated. Mild coronary artery calcifications are seen. Aorta: Thoracic aorta non-dilated. No dissection. Upper abdomen: No acute findings. Diverticulum of the descending duodenum. Bones: Unremarkable for age. Tubes, Catheters, and Lines: None Soft tissues: Unremarkable. IMPRESSION: No evidence of pulmonary embolism. Status post left pneumonectomy. No evidence of mass or adenopathy. RADIATION DOSE DELIVERED: 316.57mGy.cm Total DLP DATA REPOSITORY: All CT scans at this facility are submitted to the National Radiology Data Registry (NRDR) Dose Index Registry (DIR) with the [employer] (ACR). RADIATION OPTIMIZATION: All CT scans at this facility use at least one of these dose optimization te chniques: automated exposure control; mA and/or kV adjustment per patient size (includes targeted exa ms where dose is matched to clinical indication); or iterative reconstruction.
[2024-01-10] MEDS: Albuterol/Ipratropium 3 ML UPD VIAL UPD (15:39)
[2024-01-10] MEDS: MAGNESIUM SULFATE 1 GM/100 ML BAG IVINF (15:39)
[2024-01-10] MEDS: predniSONE 20 MG TAB 60 MG PO (15:39)
[2024-01-10 16:06] LABS: Troponin I 24 ng/L (<or=51)
[2024-01-10] MEDS: Furosemide 20 MG/2 ML VIAL 40 MG IVP (16:22)
[2024-01-10 17:36] LABS: Troponin I 28 ng/L (<or=51)
[2024-01-10 20:12] LABS: Bilirubin Negative (Negative); Blood Trace-intact (Negative); Clarity Clear (Clear); Glucose Negative (Negative); Ketones Negative (Negative); Leukocyte Esterase Negative (Negative); Nitrite Negative (Negative); Urobilinogen 0.2 mg/dL (Up to 0.2)
[2024-01-10 20:21] LABS: Bacteria Rare HPF (Negative); C & S Indicated? No; Casts Negative LPF (Negative); Crystals Negative HPF (Negative); Epithelial Cells Rare HPF (Negative); Mucus Negative (Negative); WBC Negative HPF (0-5)
--- NOTE | 2024-01-10 20:23 | W.PM.HP.N ---
Date of service: 01/10/24 Time of Service: :23 Assessment and Plan Assessment and plan (1) Acute and chronic respiratory failure with hypoxia: Start date: 01/10/24 Status: Acute Assessment and plan: This is a 73-year-old lady who has chronic intermittent use of oxygen who over the last 2 weeks has had increasing need for oxygen supplementation, slight weight gain over abdomen and trunk without peripheral edema and increased dyspnea with exertion which was extreme upon presentation to the ED. She had no evidence of PE or pneumonia and with no history of CHF and elevated BNP with normal VBG showing hyperventilation and normal lactate. She began to have symptoms 2 weeks prior to presentation after an episode of diarrhea and also mentions that she trended some moldy documents from her basement just prior to onset of symptoms. She was given IV Lasix and did have a slow improvement with patient being weaned off oxygen by the time she was on MedSurg and in her room. She diuresed well. He has never been on Lasix or diuretics and has no history of CHF though her family history is very strong. She will be observed on IV Lasix with possible initiation of daily Lasix until echocardiogram can be performed. If she does well she can go home on oral Lasix within the next 24 to 48 hours. Troponins were negative and there is no evidence of acute ischemic cardiac issues. POCUS ultrasound in the ED was limited but was reported as preserved left ventricular ejection fraction and no apparent B-lines. She has a lung cancer spiral with left pneumonectomy and does have limited lung capacity with COPD. Respiratory treatment will be continued the same. She will not be placed on steroids or antibiotics. She is a full code. (2) Ventricular trigeminy: Start date: 01/10/24 Status: Acute Assessment and plan: Patient had increased ectopy with PVCs in the PCPs office prompting ED for evaluation. This persisted initially but troponins are negative x 3 she did not appear to have any acute cardiac issues. She was given magnesium for her respiratory status possible asthma exacerbation and unfortunately magnesium level checked after this infusion with slight elevation of magnesium level. PVCs have become less frequent. Continue cardiac nurse with observation. Patient is a full code. (3) Chronic kidney disease: Status: Acute Assessment and plan: Stable with monitoring while hospitalized. There is no associated anemia. Qualifiers: Chronic kidney disease stage: stage 3 (moderate) Chronic kidney disease stage 3 subtype: stage 3b (GFR 30-44) Qualified Code(s): N18.32 - Chronic kidney disease, stage 3b (4) Diabetes mellitus: Status: Chronic Assessment and plan: Glucometer measurements ACHS with sliding scale coverage while hospitalized. Hold long-acting insulin which can be reinitiated in the next 2 to 3 days without much loss of affect being Tresiba. Her oral Tradjenta will be continued. Glimepiride will be held. Qualifiers: Chronic kidney disease stage: stage 3 (moderate) Chronic kidney disease stage 3 subtype: stage 3b (GFR 30-44) Diabetes mellitus complication detail: with chronic kidney disease Diabetes mellitus complication status: with kidney complications Diabetes mellitus intermediate insulin use: with applied researcher use Diabetes mellitus type: type 2 Qualified Code(s): E11.22 - Type 2 diabetes mellitus with diabetic chronic kidney disease; N18.32 - Chronic kidney disease, stage 3b; Z79.4 - longterm (current) use of insulin (5) Adenocarcinoma of lung: Status: Chronic Assessment and plan: Status post left pneumonectomy with decreased lung capacity. Qualifiers: Laterality: left Qualified Code(s): C34.92 - Malignant neoplasm of unspecified part of left bronchus or lung (6) Essential hypertension: Status: Chronic Assessment and plan: Continue outpatient medical therapy with monitoring and adjusting as needed. History of Present Illness History of Present Illness Chief Complaint: Increased oxygen needs with severe dyspnea upon exertion Narrative: This is a 73-year-old female patient is status post pneumonectomy for lung cancer with COPD who shredded some moldy paper at home from her basement and had an episode of diarrhea and progressive abdominal bloating 2 weeks prior to presentation now with a 2-week history of increasing shortness of breath. She has had some weight gain especially over her abdomen but no peripheral edema. She was sent in by her PCP for evaluation because of trigeminy PVCs and increased oxygen needs been on as needed oxygen in the past status post left pneumonectomy. She had a CTA which did not show any pulmonary embolus and did reveal previous pneumonectomy but no other findings of pneumonia or acute infectious process. She has an elevated BNP with a trace right pleural effusion and but no history of CHF though a very strong family history of CAD/CHF at a young age. She did receive 40 mg IV Lasix with adequate diuresis and felt somewhat better but was still extremely dyspneic with exertion and dropped her pulse oximetry to the high 80% range with ambulation. Though there was not a severe drop in her pulse oximeter, she had significant symptoms with minimal exertion such as up to 3 steps at bedside. She is not an active smoker. The ED physician was hesitant to send her home with patient essentially living alone and is taking care of her disabled son and with her increased oxygen needs with extreme symptoms with exertion. VBG was performed which was normal with only slightly decreased pCO2 probably from hyperventilation with her dyspnea and a normal lactate. She will be observed with IV Lasix therapy and hopefully echocardiogram as available with respiratory exacerbation and increased PVC frequency but no evidence of pneumonia and no need for antibiotic therapy at this time. She does not appear septic. She overall functions well at home with diabetes, morbid obesity losing 30 pounds and getting 20 back recently and using rescue and maintenance respiratory inhalers. She does take care of her disabled son. She is a full code. Review of Systems Narrative: 13 point review of systems otherwise unrevealing or stable. PFSH All Active Problems Lung cancer (Chronic) CHF (congestive heart failure) (Chronic) COPD (chronic obstructive pulmonary disease) (Chronic) Respiratory failure (Acute) Acute and chronic respiratory failure with hypoxia (Acute) Ventricular trigeminy (Acute) Driving safety issue (Acute) When vertigo is active (she will need RCT as she cannot drive with active vertigo.) >> grounded when vertigo is active.. Vertigo (Acute) Per ER report in [place] Hypertrophic toenail (Acute) Does anyone make HV? [ ] Podiatry PRN Xeroderma (Acute) Hemoglobin A1c above reference range (Acute) Nocturnal polyuria (Acute) Postmenopausal estrogen deficiency (Chronic) Requesting DEXA scan At risk for osteoporosis (Acute) Hx smoking, PPI and prednisone use. Chronic obstructive lung disease (Acute 02/20/02) FEV1 0.98 (34%PRED, 58% FVC) FOLLOWING Left PNEUMONECTOMY; home O2 since lung surg 2003 Secondary anemia (Acute 01/20/05) Mild improvement, 08/2021 (11.9) .. Hx: due to chemotherapy; PERSISTS 11.5 (08/2015 [facility] 10.8 2016 [facility]; also due to CKD Chronic kidney disease (Acute) stage 3. [facility] Denilson Rendon MD 05/19/18 Decreased stamina (Acute) Fatigue (Acute) Caregiver stress (Chronic) Son @ home, Psych Disorder affecting ADL, including worsening paranoia. Skin lesion of breast (Acute) Appears as shira kerat .. Actinic keratosis (Acute) 10/06/20 destruction of lesion, left cheek, left nasal lip, right paranasal, right nasal bridge Diabetes mellitus (Chronic) dx 06/2003, co-managed ; goal A1c <7.5; most labs at [facility] Confusing mix of meds with recent changes 2' Cr levels being affected. Appreciate re-eval, along with diet review by Latoya! 12/13/17 ik Met with Nephro ([facility]), glad of no microhematuria .. meds and diet reviewed, trialing mild changes, d/c glimepuride. Diabetes mellitus type 2, uncontrolled (Acute 04/09/17) dx 06/2003, co-managed ; goal A1c <7.5; most labs at [facility] Type 2 diabetes mellitus with stage 3 chronic kidney disease, with long-term current use of insulin (Acute) [facility], goal A1c < 7.5 .. 6.8 today (June 2017)! .. down from 8/7.6/8.2 in 2017. Cr 1.42 03/2017, 1.65 (07/17/17). Apr 2017 [facility] Endo note mentions Nephro referral, placing per 07/17/16 lab results. Stressful life events affecting family and household (Acute) Counseling on health promotion and disease prevention (Acute) Adenocarcinoma of lung (Chronic 03/22/04) Asthma (Acute 05/15/11) Oxygen desaturation (Chronic 03/2004) Family history of colon cancer (Acute 05/15/11) Stasis dermatitis (Acute 05/12/02) Hx of pneumonectomy (Chronic 03/2004) Left lung removed, sent home with oxygen Vitamin D deficiency (Acute 12/26/10) Osteoarthritis (Acute 01/12/10) mild R hip on x-ray/clinical Obesity (Acute 05/12/02) Good weight loss, 290 today .. down from 311 last year. Hyperlipidemia (Acute 08/21/03) Gastroesophageal reflux disease (Acute 05/19/05) CHRONIC PRILOSEC OTC Essential hypertension (Chronic 09/14/03) Hx elevatd DBP, but she monitors closely. Meds tolerated. Low, but asympto, BP today, 01/29/18. Low normal/baseline, 07/2018. ik Chronic osteoarthritis (Acute 05/15/11) Medical History Smoker (05/15/11) QUIT? Renal insufficiency (2018) Seeing Nephro; improved. Surgical History pneumonectomy (04/20/04) Left, [facility] Tonsillectomy and adenoidectomy (03/02/10) Extraction of cataract (~01/2015) [facility] Family History Mother , stroke, pneumonia at age 82. Personal history of malignant neoplasm Father , suicide at age 75. No problems noted. Sister Age: 71 No problems noted. Brother , bowel obstruction at age 46. No problems noted. 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 Working smoke detector in home: Yes Carbon monox detector in home: Yes Do you feel safe at home: Yes Do you feel safe in your relationship?: Yes Meds Allergies and Home Medications Allergies Allergy/AdvReac Type Severity Reaction Status Date / Time morphine Allergy vomit Verified 01/10/24 13:00 exenatide (From [place]) AdvReac Intermediate gi upset Verified 01/10/24 13:00 Home Medications ?Medication ?Instructions ?Recorded ?Confirmed ?Type cyanocobalamin (vitamin B-12) 1,000 mcg PO DAILY 06/20/12 01/10/24 History 1,000 mcg tablet (Vitamin B-12) docusate sodium 100 mg capsule 100 mg PO PRN 06/20/12 01/10/24 History (Colace) hydrocortisone 1 %-pramoxine 1 % 10 gm RC PRN #1 tube 10/19/14 01/10/24 History rectal foam (Proctofoam HC) aspirin 81 mg tablet,delayed 81 mg PO DAILY 01/17/16 01/10/24 History release (Aspir-) Oxygen #1 ea 06/20/18 01/10/24 History Nebulizer #1 ea 05/29/19 01/10/24 Rx pen needle, diabetic 31 gauge x #300 ea 09/01/19 01/10/24 Rx 5/16 (Comfort EZ Pen [place]) triamcinolone acetonide 0.1 % 1 applic topical DAILY #120 mL 05/25/20 01/10/24 Rx lotion magnesium oxide 400 mg PO DAILY 10/04/20 01/10/24 History cholecalciferol (vitamin D3) 25 25 mcg PO DAILY 11/07/20 01/10/24 History mcg (1,000 unit) capsule nystatin 100,000 unit/gram topical 1 applic topical BID #30 grams 11/25/20 01/10/24 Rx ointment triamcinolone acetonide 0.1 % 1 applic topical DAILY #453.6 grams 05/13/21 01/10/24 Rx topical cream aluminum hydrox-magnesium carb 160 4 tab PO HS PRN 07/20/21 01/10/24 History mg-105 mg chewable tablet (Gaviscon Extra Strength) fluticasone propionate 50 2 spray NS DAILY PRN nasal 09/14/21 01/10/24 Rx mcg/actuation nasal congestion #16 grams spray,suspension lancets 33 gauge (OneTouch Delica #360 ea 01/16/22 01/10/24 Rx Lancets) ipratropium 0.5 mg-albuterol 3 mg 3 ml inhalation Q6H PRN wheezing 03/24/22 01/10/24 Rx (2.5 mg base)/3 mL nebulization or SOB #90 mL soln famotidine 40 mg tablet 40 mg PO QHS PRN GERD flare #90 01/31/23 01/10/24 Rx tabs ammonium lactate 12 % lotion 1 applic topical BID PRN dry flaky 02/13/23 01/10/24 Rx skin #225 grams flash glucose sensor (FreeStyle #6 ea 02/13/23 01/10/24 Rx Omkar 14 Day Sensor kit) blood sugar diagnostic (OneTouch #360 strips 02/24/23 01/10/24 Rx Ultra Test strips) glimepiride 1 mg tablet 1 mg PO QAM #90 tabs 03/22/23 01/10/24 Rx atorvastatin 40 mg tablet See Rx Instructions .Route 07/15/23 01/10/24 Rx .COMPLEX #90 tabs lisinopril 10 mg tablet 10 mg PO DAILY #90 tabs 07/15/23 01/10/24 Rx lisinopril 5 mg tablet 5 mg PO DAILY #90 tabs 07/15/23 01/10/24 Rx insulin glulisine U-100 100 See Rx Instructions subcut BID #15 07/21/23 01/10/24 Rx unit/mL subcutaneous pen (Apidra mL SoloStar U-100 Insulin) albuterol sulfate 90 mcg/actuation See Rx Instructions .Route 08/07/23 01/10/24 Rx aerosol inhaler .COMPLEX #25.5 grams tiotropium bromide 18 mcg capsule 1 cap inhalation DAILY #90 caps 08/07/23 01/10/24 Rx with inhalation device (Spiriva with HandiHaler) hydrochlorothiazide 12.5 mg tablet 12.5 mg PO DAILY #90 tab-caps 08/23/23 01/10/24 Rx fluticasone 100 mcg-salmeterol 50 1 inh inhalation BID #180 ea 09/28/23 01/10/24 Rx mcg/dose blistr powdr for inhalation (Wixela Inhub) linagliptin 5 mg tablet (Tradjenta) 5 mg PO DAILY #90 tabs 09/28/23 01/10/24 Rx insulin degludec 100 unit/mL (3 32 unit subcut HS 01/10/24 01/10/24 History mL) subcutaneous pen (Tresiba FlexTouch U-100 insulin) Exam Narrative Exam Narrative: General: Patient appears appropriate age, morbidly obese, alert and oriented x 3 and in no acute distress. She is very talkative at the time of my exam and was having less dyspnea with exertion in the room. HEENT: Normocephalic, eyes with pupils equal and react to light symmetrically, extraocular movement intact and sclera anicteric. Oropharynx with moist Koza and fair dentition. Neck: Supple without JVD. Back: Stooped posture without CVA tenderness. Lungs: Decreased aeration of the left hemithorax with bronchovesicular breath sound diffusely, no focalizing rales or rhonchi and no expiratory wheeze. Occasional coarse crackle left hemithorax. Breast: Exam deferred. Heart: Regular rate and rhythm with no murmurs or gallops. Abdomen: Obese contour, large pannus with abdomen soft palpation, no hepatosplenomegaly, no guarding or rebound or focal tenderness. Genitalia/medical exam deferred. Extremities: No clubbing, cyanosis or pitting edema. Good capillary refill. Skin: Normal color, warm and dry. Neuro: Cranial nerves II through XII intact, no focal motor deficits. No tremor. Psych: Normal affect and mood. No abnormal thought processes. Remote and recent memory intact. Results Imaging Imaging Studies: EXAM: CT CHEST PE CTA CLINICAL HISTORY: SOB, hx lung CA, has 1 lung, elev d-dimer. TECHNIQUE: Imaging Protocol: Axial CT angiography was performed with multi-slice acquisition and multi-planar reconstructions as well as axial, coronal and sagittal MIP reconstructions. CONTRAST MATERIAL: Intravenous: Omnipaque 350 Contrast volume:100 ml COMPARISON: CR CHEST 2 VIEWS PA,LAT from 02/09/2016 FINDINGS: Pulmonary Arteries: No evidence of filling defect to suggest pulmonary emboli. Tracheobronchial tree: No mucous plugging. Mediastinum and Rand: Mediastinum is shifted into the left chest. No dominant adenopathy. Pulmonary parenchyma: Status post left lobectomy. Small amount of residual fluid. Pleura: Small amount of residual fluid in the left lung cavity status post pneumonectomy. Trace right pleural effusion. Heart: The heart is not dilated. Mild coronary artery calcifications are seen. Aorta: Thoracic aorta non-dilated. No dissection. Upper abdomen: No acute findings. Diverticulum of the descending duodenum. Bones: Unremarkable for age. Tubes, Catheters, and Lines: None Soft tissues: Unremarkable. IMPRESSION: No evidence of pulmonary embolism. Status post left pneumonectomy. No evidence of mass or adenopathy. Labs 01/10/24 13:20 01/10/24 13:20 Labs: Laboratory Results - last 24 hr 01/10/24 01/10/24 01/10/24 13:10 13:20 15:18 WBC 10.68 RBC 3.92 L Hgb 11.4 Hct 36.5 MCV 93 MCH 29.1 MCHC 31.2 L RDW 14.6 Plt Count 226 MPV 10.7 Immature Gran % 0.6 Neutrophils % 79.1 Lymphocytes % 9.6 Monocytes % 9.6 Eosinophils % 0.6 Basophils % 0.5 Nucleated RBC % 0.0 Absolute Neutrophils 8.45 H Absolute Lymphocytes 1.03 L Absolute Monocytes 1.03 H Absolute Eosinophils 0.06 Absolute Basophils 0.05 D-Dimer 902 H Sodium 138 Potassium 4.2 Chloride 101 Carbon Dioxide 26.8 Anion Gap 10.2 BUN 36 H Creatinine 1.6 H Est GFR (CKD-EPI 2020) 33.42 Glucose 139 H Calcium 9.8 Total Bilirubin 0.51 AST 16 ALT 19 Alkaline Phosphatase 96 Troponin I 23 24 NT-Pro-B Natriuret Pep 6150 H Total Protein 7.9 Albumin 3.6 Lipase 18 Urine Color Urine Clarity Urine pH Ur Specific [place] Urine Protein Urine Ketones Urine Blood Urine Nitrite Urine Bilirubin Urine Urobilinogen Ur Leukocyte Esterase Urine RBC Urine WBC Ur Epithelial Cells Urine Crystals Urine Bacteria Urine Casts Urine Mucus Ur Culture Indicated? Urine Glucose COVID-19 Source Nasopharynx SARS-CoV-2 (PCR) Negative Influenza Type A (PCR) Negative Influenza Type B (PCR) Negative RSV (PCR) Negative 01/10/24 01/10/24 17:14 20:06 WBC RBC Hgb Hct MCV MCH MCHC RDW Plt Count MPV Immature Gran % Neutrophils % Lymphocytes % Monocytes % Eosinophils % Basophils % Nucleated RBC % Absolute Neutrophils Absolute Lymphocytes Absolute Monocytes Absolute Eosinophils Absolute Basophils D-Dimer Sodium Potassium Chloride Carbon Dioxide Anion Gap BUN Creatinine Est GFR (CKD-EPI 2020) Glucose Calcium Total Bilirubin AST ALT Alkaline Phosphatase Troponin I 28 NT-Pro-B Natriuret Pep Total Protein Albumin Lipase Urine Color Yellow Urine Clarity Clear Urine pH 6.0 Ur Specific [place] 1.010 Urine Protein Negative Urine Ketones Negative Urine Blood Trace-intact H Urine Nitrite Negative Urine Bilirubin Negative Urine Urobilinogen 0.2 Ur Leukocyte Esterase Negative Urine RBC 3-5 H Urine WBC Negative Ur Epithelial Cells Rare Urine Crystals Negative Urine Bacteria Rare Urine Casts Negative Urine Mucus Negative Ur Culture Indicated? No Urine Glucose Negative COVID-19 Source SARS-CoV-2 (PCR) Influenza Type A (PCR) Influenza Type B (PCR) RSV (PCR) Last Vital Signs Temp 36.2 C L 01/10/24 12:55 Pulse 47 L 01/10/24 16:21 Resp 15 01/10/24 16:22 BP 164/61 H 01/10/24 16:21 Pulse Ox 98 01/10/24 16:22 Time Spent Time spent with Patient: >75 minutes Time was spent: preparing to see the patient(eg.review tests), obtaining and/or reviewing separately otained hiistory, ordering medications,tests, procedures, indepentently interpreting results, counseling the patient and care coordination
--- NOTE | 2024-01-10 21:34 | W.PC.ACHO ---
Registration Status: Primary Language: Preferred Language: ED Information & Data Chief Complaint GenMedical 01/10/24 13:12 Chief Complaint GenMedical 01/10/24 13:03 Triage Note Pt states she has been using 01/10/24 12:55 a lot of oxygen at home, has been sick with diarrhea on/off. Had EKG done at primary office with changes from baseline. Dyspnea on exertion. On 2L NC. Denies chest pain. Primary referred to ED for further eval. Medical / Surgical History (Last Reviewed 01/10/24 @ 20:26 by Marlon Stern) Smoker (05/15/11) Renal insufficiency (2018) (Last Reviewed 01/10/24 @ 20:26 by Marlon Stern) pneumonectomy (04/20/04) Tonsillectomy and adenoidectomy (03/02/10) Extraction of cataract (~01/2015) Most Recent Vital Signs Temperature 36.2 C L 01/10/24 12:55 Temperature Source Temporal Artery Scan 01/10/24 12:55 Pulse 47 L 01/10/24 16:21 Pulse 94 H 01/10/24 16:22 Respiratory Rate 15 01/10/24 16:22 Respiratory Effort Short of Breath 01/10/24 13:12 Respiratory Depth Shallow 01/10/24 13:09 Respiratory Pattern Tachypnea 01/10/24 13:09 Blood Pressure 164/61 H 01/10/24 16:21 Blood Pressure Mean 101 01/10/24 16:21 Blood Pressure Position Sitting 01/10/24 12:55 Pulse Oximetry 98 01/10/24 16:22 Oxygen Delivery Method Nasal Cannula 01/10/24 12:55 Oxygen Flow Rate 2 01/10/24 12:55 Allergies morphine Allergy (Verified 01/10/24 13:00) vomit exenatide (From [place]) Adverse Reaction (Intermediate, Verified 01/10/24 13:00) gi upset WICKED STOMACH CRAMPS, VOMITING Precautions Isolation Standard precaution 01/10/24 13:12 Active Medications Generic Name Dose Route Start Last Admin Trade Name Freq PRN Reason Stop Dose Admin Iohexol 100 ml 01/10/24 14:30 01/10/24 14:30 Omnipaque 350 Mg/Ml 100 Ml Btl IJ 02/09/24 23:59 100 ml DIRECTED [place] Administration Sodium Chloride 50 ml 01/10/24 14:45 09/20/24 14:34 Normal Saline - Diluent 50 Ml Vial IJ 50 ml .FOR DI USE [place] Administration IV IV Catheter Type [Left diffusix Antecubital] IV Catheter Type [Right diffusix Forearm] IV Catheter Gauge [Left 20 Antecubital] IV Catheter Gauge [Right 20 Forearm] Diagnostics 01/10/24 01/10/24 01/10/24 Range/Units 20:56 20:06 17:14 WBC (4.4-10.8) 10^3/uL RBC (3.93-5.22) 10^6/uL Hgb (11.2-15.7) g/dL Hct (36.0-46.0) % MCV (80-95) fL MCH (27.0-33.0) pg MCHC (32.0-36.0) % RDW (11.7-14.6) % Plt Count (130-400) 10^3/uL MPV (8.0-11.0) fL Immature Gran % % Neutrophils % % Lymphocytes % % Monocytes % % Eosinophils % % Basophils % % Nucleated RBC % (0.0-0.3) % Absolute Neutrophils (1.2-6.7) 10^3/uL Absolute Lymphocytes (1.2-3.4) 10^3/uL Absolute Monocytes (0.1-0.8) 10^3/uL Absolute Eosinophils (0.0-0.7) 10^3/uL Absolute Basophils (0.0-0.2) 10^3/uL D-Dimer (<500) ng/mlFEU VBG pH Pending VBG pCO2 Pending VBG pO2 Pending VBG HCO3 Pending VBG Total CO2 Pending VBG O2 Saturation Pending VBG Base Excess Pending VBG Lactate Pending Sodium (136-145) mmol/L Potassium (3.5-5.1) mmol/L Chloride (98-107) mmol/L Carbon Dioxide (21.0-32.0) mmol/L Anion Gap (3-11) mmol/L BUN (7-18) mg/dL Creatinine (0.55-1.02) mg/dL Est GFR (CKD-EPI 2020) (mL/min/1.73m2) Glucose (74-106) mg/dL Calcium (8.5-10.1) mg/dL Total Bilirubin (0.2-1.0) mg/dL AST (15-37) U/L ALT (14-59) U/L Alkaline Phosphatase (46-116) U/L Troponin I 28 (<or=51) ng/L NT-Pro-B Natriuret Pep (<300) pg/mL Total Protein (6.4-8.2) g/dL Albumin (3.4-5.0) g/dL Lipase (16-77) U/L Urine Color Yellow (Yellow) Urine Clarity Clear (Clear) Urine pH 6.0 (5-8) Ur Specific [place] 1.010 (1.005-1.025) Urine Protein Negative (Neg-Trace) mg/dL Urine Ketones Negative (Negative) mg/dL Urine Blood Trace-intact H (Negative) Urine Nitrite Negative (Negative) Urine Bilirubin Negative (Negative) Urine Urobilinogen 0.2 (Up to 0.2) mg/dL Ur Leukocyte Esterase Negative (Negative) Urine RBC 3-5 H (0-2) HPF Urine WBC Negative (0-5) HPF Ur Epithelial Cells Rare (Negative) HPF Urine Crystals Negative (Negative) HPF Urine Bacteria Rare (Negative) HPF Urine Casts Negative (Negative) LPF Urine Mucus Negative (Negative) Ur Culture Indicated? No Urine Glucose Negative (Negative) mg/dL COVID-19 Source SARS-CoV-2 (PCR) (Negative) Influenza Type A (PCR) (Negative) Influenza Type B (PCR) (Negative) RSV (PCR) (Negative) 01/10/24 01/10/24 01/10/24 Range/Units 15:18 13:20 13:10 WBC 10.68 (4.4-10.8) 10^3/uL RBC 3.92 L (3.93-5.22) 10^6/uL Hgb 11.4 (11.2-15.7) g/dL Hct 36.5 (36.0-46.0) % MCV 93 (80-95) fL MCH 29.1 (27.0-33.0) pg MCHC 31.2 L (32.0-36.0) % RDW 14.6 (11.7-14.6) % Plt Count 226 (130-400) 10^3/uL MPV 10.7 (8.0-11.0) fL Immature Gran % 0.6 % Neutrophils % 79.1 % Lymphocytes % 9.6 % Monocytes % 9.6 % Eosinophils % 0.6 % Basophils % 0.5 % Nucleated RBC % 0.0 (0.0-0.3) % Absolute Neutrophils 8.45 H (1.2-6.7) 10^3/uL Absolute Lymphocytes 1.03 L (1.2-3.4) 10^3/uL Absolute Monocytes 1.03 H (0.1-0.8) 10^3/uL Absolute Eosinophils 0.06 (0.0-0.7) 10^3/uL Absolute Basophils 0.05 (0.0-0.2) 10^3/uL D-Dimer 902 H (<500) ng/mlFEU VBG pH VBG pCO2 VBG pO2 VBG HCO3 VBG Total CO2 VBG O2 Saturation VBG Base Excess VBG Lactate Sodium 138 (136-145) mmol/L Potassium 4.2 (3.5-5.1) mmol/L Chloride 101 (98-107) mmol/L Carbon Dioxide 26.8 (21.0-32.0) mmol/L Anion Gap 10.2 (3-11) mmol/L BUN 36 H (7-18) mg/dL Creatinine 1.6 H (0.55-1.02) mg/dL Est GFR (CKD-EPI 2020) 33.42 (mL/min/1.73m2) Glucose 139 H (74-106) mg/dL Calcium 9.8 (8.5-10.1) mg/dL Total Bilirubin 0.51 (0.2-1.0) mg/dL AST 16 (15-37) U/L ALT 19 (14-59) U/L Alkaline Phosphatase 96 (46-116) U/L Troponin I 24 23 (<or=51) ng/L NT-Pro-B Natriuret Pep 6150 H (<300) pg/mL Total Protein 7.9 (6.4-8.2) g/dL Albumin 3.6 (3.4-5.0) g/dL Lipase 18 (16-77) U/L Urine Color (Yellow) Urine Clarity (Clear) Urine pH (5-8) Ur Specific [place] (1.005-1.025) Urine Protein (Neg-Trace) mg/dL Urine Ketones (Negative) mg/dL Urine Blood (Negative) Urine Nitrite (Negative) Urine Bilirubin (Negative) Urine Urobilinogen (Up to 0.2) mg/dL Ur Leukocyte Esterase (Negative) Urine RBC (0-2) HPF Urine WBC (0-5) HPF Ur Epithelial Cells (Negative) HPF Urine Crystals (Negative) HPF Urine Bacteria (Negative) HPF Urine Casts (Negative) LPF Urine Mucus (Negative) Ur Culture Indicated? Urine Glucose (Negative) mg/dL COVID-19 Source Nasopharynx SARS-CoV-2 (PCR) Negative (Negative) Influenza Type A (PCR) Negative (Negative) Influenza Type B (PCR) Negative (Negative) RSV (PCR) Negative (Negative) [id number] Documentation Fingerstick Glucose Start: 01/10/24 17:16 Freq: Status: Active Protocol: Activity Type Activity Date Activity User E-sign Co-sign Detail Recorded Client Recorded Date Recorded By Document 01/10/24 17:15 BKG DAEMON(3) [id number] 01/10/24 17:16 BKG DAEMON(4) Intake and Output - 24 Hour Total 01/10/24 12:50 thru 01/10/24 16:47 Intake Total 100 Balance 100 Weight 132.449 kg Intake: IV 100 Falls Risk Assessment History of Falls No History 01/10/24 13:13 Contributing Factors Unstable,Impairments 01/10/24 13:13 Ambulatory Aids Uses ambulatory device 01/10/24 13:13 Tubes/Lines With any additional score 01/10/24 13:13 Gait Evaluation W/no contributing factors 01/10/24 13:13 Cognition No cognitive impairment 01/10/24 13:13 Fall Total Score 51 01/10/24 13:13 Level of Risk High Risk 01/10/24 13:13 Problems (Last Reviewed 01/10/24 @ 20:26 by Marlon Stern) Acute and chronic respiratory failure with hypoxia (Acute) Ventricular trigeminy (Acute) Chronic kidney disease (Acute) Diabetes mellitus (Chronic) Adenocarcinoma of lung (Chronic 03/22/04) Essential hypertension (Chronic 09/14/03) v v v v v v v v v Sending and/or Receiving Nurses: Please use comment section below to note any information pertinent to the patient hand-off not included above. Information / Comments: Report received from: chris kamara at [phone]
[2024-01-10 21:57] LABS: BE (Venous) -1 mmol/L (-2-3); HCO3 (Venous) 24 mmol/L (23-28); Lactate 0.9 mmol/L (0.6-1.4); pCO2 (Venous) 39 mmHg (41-51); pH (Venous) 7.41 (7.31-7.41); pO2 (Venous) 137 mmHg
[2024-01-10 21:58] LABS: O2 Sat (Venous) > 99 %
[2024-01-10 22:38] LABS: Magnesium 2.7 mg/dL (1.8-2.4); TSH (W/Ref FT4) 1.33 uIU/mL (0.36-3.74)
[2024-01-10] MEDS: Acetaminophen 325 MG TAB 650 MG PO (23:23)
[2024-01-10] MEDS: Albuterol/Ipratropium 3 ML UPD VIAL IH (23:23)
[2024-01-10] MEDS: Enoxaparin 40 MG/0.4 ML SYR SC (23:23)
[2024-01-11] VITALS (7 sets, daily range): BP systolic 113–131; BP diastolic 60–77; PULSE 65–94; RESP 2–19; TEMP 36.3–36.8; O2SAT 91–97
[2024-01-11] MEDS: Albuterol/Ipratropium 3 ML UPD VIAL IH ×2 (04:23→11:16)
[2024-01-11 07:17] LABS: HCT 36.4 % (36.0-46.0); HGB 11.3 g/dL (11.2-15.7); MCV 93 fL (80-95); MPV 11.1 fL (8.0-11.0); Platelet Count 236 10^3/uL (130-400); RDW 14.5 % (11.7-14.6); RDW-SD 49.8 fL; WBC 8.05 10^3/uL (4.4-10.8)
[2024-01-11 07:32] LABS: ALT 17 U/L (14-59); AST 17 U/L (15-37); Albumin 3.5 g/dL (3.4-5.0); Alkaline Phosphatase 98 U/L (46-116); Anion Gap 11.7 mmol/L (3-11); BUN 46 mg/dL (7-18); Bilirubin, Total 0.47 mg/dL (0.2-1.0); CO2 25.3 mmol/L (21.0-32.0); CREATININE 1.9 mg/dL (0.55-1.02); Calcium 9.8 mg/dL (8.5-10.1); Chloride 99 mmol/L (98-107); Glucose 199 mg/dL (74-106); Potassium 4.5 mmol/L (3.5-5.1); Sodium 136 mmol/L (136-145); Total Protein 7.7 g/dL (6.4-8.2)
[2024-01-11] MEDS: Lisinopril 5 MG TAB PO (08:44)
[2024-01-11] MEDS: Lisinopril 10 MG TAB PO (08:44)
[2024-01-11] MEDS: Furosemide 40 MG/4 ML VIAL IVP (08:44)
[2024-01-11] MEDS: Aspirin E.C. 81 MG TABEC PO (08:44)
[2024-01-11] MEDS: hydroCHLOROthiazide 12.5 MG TAB PO (08:44)
[2024-01-11] MEDS: Cholecalciferol (Vitamin D3) 1,000 UNIT TAB 1000 UNITS PO (08:45)
[2024-01-11] MEDS: Cyanocobalamin 500 MCG TAB 1000 MCG PO (08:45)
[2024-01-11] MEDS: Magnesium Oxide 400 MG TAB PO (08:45)
[2024-01-11] MEDS: Normal Saline Flush 10 ML SYR IVP (08:55)
[2024-01-11] MEDS: Budesonide/Formoterol 80/4.5 6.9 GM 60 PUFF INH IH (11:15)
--- NOTE | 2024-01-11 13:59 | W.PM.DS.N ---
Date of service: 01/11/24 Time of Service: 14:00 DS: Diagnosis Discharge Diagnosis (1) Acute and chronic respiratory failure with hypoxia: Status: Acute (2) Ventricular trigeminy: Status: Acute (3) Chronic kidney disease: Status: Acute (4) Diabetes mellitus: Status: Chronic (5) Adenocarcinoma of lung: Status: Chronic (6) Essential hypertension: Status: Chronic Discharge Plan Disposition Patient Disposition: Home Condition: Improving Discharge Details Reason For Visit: Acute on Chronic Hypoxic Respiratory Failure Admit Date/Time: 01/10/24 20:56 Admit Provider: Marlon Stern Attending Provider: Marlon Stern Primary Care Provider: Amanda Barnett Hospital Course Hospital Course: This is a 73-year-old female patient past medical history significant for COPD lung cancer status post lobectomy diabetes mellitus type 2, hypoxic respiratory failure with home oxygen who presented to the emergency department with increasing shortness of breath her workup most consistent for congestive heart failure. She received IV diuresis with good effect was weaned back down on oxygen to home delivery levels. She has been eating and drinking bowels and bladder functioning and feeling improved. Unfortunately echocardiogram is not available over the weekend so order has been placed for outpatient echo. 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 Case management did discuss resources with her. She should follow-up closely outpatient with her primary care provider. She will be started on furosemide 20 mg daily while further evaluation and workup is completed. Discharge discussed with Dr. aDniel [facility] and New Rx's Prescriptions: New furosemide [Lasix] 20 mg tablet 20 mg PO DAILY Qty: 30 0RF Continued (DME) Nebulizer Qty: 1 0RF Rx Instructions: As directed cholecalciferol (vitamin D3) 25 mcg (1,000 unit) capsule 25 mcg PO DAILY nystatin 100,000 unit/gram ointment 1 applic topical BID Qty: 30 1RF Rx Instructions: Apply under breasts x 1-2 weeks (DME) FreeStyle Omkar 14 Day Sensor Kit See Rx Instructions .Route Qty: 6 3RF Rx Instructions: For DM, to maintain A1C < 8 ammonium lactate 12 % lotion 1 applic topical BID PRN (Reason: dry flaky skin) Qty: 225 1RF Rx Instructions: Trial for legs, ankles, forearms triamcinolone acetonide 0.1 % lotion 1 applic topical DAILY Qty: 120 1RF Rx Instructions: Apply to lower legs nightly, approx 4FTUs per leg (4mL). magnesium oxide 400 mg magnesium capsule 400 mg PO DAILY Gaviscon Extra Strength 160-105 mg tablet,chewable 4 tab PO HS PRN albuterol sulfate 90 mcg/actuation HFA aerosol inhaler See Rx Instructions .ROUTE .COMPLEX Qty: 25.5 3RF Dose Instruction: INHALE TWO PUFFS BY MOUTH EVERY 4 HOURS NEEDED FOR SHORTNESS OF BREATH OR WHEEZING DIRECTED FOR COPD, WHEEZING Rx Instructions: INHALE TWO PUFFS BY MOUTH EVERY 4 HOURS NEEDED FOR SHORTNESS OF BREATH OR WHEEZING DIRECTED FOR COPD, WHEEZING tiotropium bromide [Spiriva with HandiHaler] 18 mcg capsule, w/inhalation device 1 cap Inhalation DAILY Qty: 90 3RF Rx Instructions: for COPD cyanocobalamin (vitamin B-12) [Vitamin B-12] 1,000 MCG tablet 1,000 mcg PO DAILY docusate sodium [Colace] 100 MG capsule 100 mg PO PRN Proctofoam HC 10 GM foam 10 gm RC PRN Qty: 1 Rx Instructions: as needed for hemorrhoidal inflammation aspirin [Aspir-81] 81 MG tablet,delayed release (DR/EC) 81 mg PO DAILY (DME) Oxygen Tank See Dose Instructions .ROUTE .MEDSUPPLY Qty: 1 Rx Instructions: 2 L as directed (DME) pen needle, diabetic [Comfort EZ Pen [place]] 31 gauge x 5/16 needle See Dose Instructions .ROUTE .MEDSUPPLY Qty: 300 3RF Dose Instruction: As directed Rx Instructions: TID triamcinolone acetonide 0.1 % cream 1 applic topical DAILY Qty: 453.6 0RF fluticasone propionate 50 mcg/actuation spray,suspension 2 spray NS DAILY PRN (Reason: nasal congestion) Qty: 16 1RF (DME) lancets [OneTouch Delica Lancets] 33 gauge misc 1 ea Miscellaneous QID Qty: 360 3RF Rx Instructions: Lancets needed to test glucose to maintain A1C less than 7. Dx code E11.9 ik ipratropium-albuterol 0.5 mg-3 mg(2.5 mg base)/3 mL solution for nebulization 3 ml IH Q6H PRN (Reason: wheezing or SOB) Qty: 90 0RF famotidine 40 mg tablet 40 mg PO QHS PRN (Reason: GERD flare) Qty: 90 3RF (DME) OneTouch Ultra Test Strip 1 ea Miscellaneous QID Qty: 360 3RF Rx Instructions: For DM E11.9 to maintain A1C less than 7 glimepiride 1 mg tablet 1 mg PO QAM Qty: 90 3RF atorvastatin 40 mg tablet See Rx Instructions .ROUTE .COMPLEX Qty: 90 3RF Dose Instruction: TAKE 1 TABLET DAILY TO LOWER CHOLESTEROL, REDUCE CARDIOVASCULAR RISK Rx Instructions: TAKE 1 TABLET DAILY TO LOWER CHOLESTEROL, REDUCE ARDIOVASCULAR RISK lisinopril 10 mg tablet 10 mg PO DAILY MDD 15mg Qty: 90 3RF Rx Instructions: add to 5mg for 15mg daily lisinopril 5 mg tablet 5 mg PO DAILY MDD 15mg Qty: 90 3RF Rx Instructions: Add to 10mg for 15mg daily Apidra SoloStar U-100 Insulin 100 unit/mL insulin pen See Rx Instructions subcut BID Qty: 15 3RF Rx Instructions: 4-10 U per sliding scale subcut twice a day; as directed per sliding scale, rarely for high sugar AC hydrochlorothiazide 12.5 mg tablet 12.5 mg PO DAILY Qty: 90 3RF Rx Instructions: FOR BP CONTROL UNDER 130/80 Tradjenta 5 mg tablet 5 mg PO DAILY Qty: 90 3RF fluticasone propion-salmeterol [Wixela Inhub] 100-50 mcg/dose blister with device 1 inh inhalation BID Qty: 180 6RF insulin degludec [Tresiba FlexTouch U-100] 100 unit/mL (3 mL) insulin pen 32 unit SC HS Discharge Instructions Instructions: Heart failure Additional Instructions: take all medication as prescribed Weight yourself 3 times weekly and report a weight gain of over 5 pounds to your primary care provider for possible medication adjustment. Stand Alone Forms: Nursing Discharge Form Referrals: Amanda Barnett DO [Primary Care Provider] - Activity:: Activity as Tolerated Equipment/Supplies:: No Equipment Needed Diet:: Low Sodium Discharge Orders Discharge Orders: Discharge Order (Routine); Ordered 01/11/24 Ordered By: Valentina Jose Other Ambulatory Orders: US echocardiogram (Routine) Timeframe: 10 Day Facility: [facility] - Location: DIAGNOSTIC IMAGING Ordered By: Valentina Jose Discharge Data Discharge Date/Time-TO BE ENTERED AT DEPARTURE: 01/11/24 15:20 DS: Summary Time Spent with Patient providing and/or coordinating discharge services: Greater than 30 minutes Status at Discharge Functional status at discharge: independent ambulation Overall status at discharge: patient is progressing back to baseline Mental Status: mental status grossly normal and other (Tearful at times when discussing stressors related to her son) Speech and Movement: speech and movement normal Mood: congruent mood and other (Tearful at times when discussing stressors related to her son) Affect: normal affect Quality:SDOH Health Related Social Needs: Health related social needs personal safety Health related social needs details Pennie 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 Exam Const General: cooperative and no acute distress Orientation: alert, awake and oriented x3 HENMT Head: normal to inspection, normocephalic and atraumatic Mouth: oral mucosae normal Chest Chest: normal inspection of the chest Resp Effort & Inspection: normal respiratory effort Auscultation: diminished lung sounds Cardio Rate: regular rate Rhythm: regular rhythm Skin General skin exam: no rashes or lesions noted Psych Appearance: grossly normal Mental Status: mental status grossly normal and other (Tearful at times when discussing stressors related to her son) Speech and Movement: speech and movement normal Mood: congruent mood and other (Tearful at times when discussing stressors related to her son) Affect: normal affect Attitude: cooperative Thought Process: normal Thought Content: normal Insight: insight good Judgment: judgment good DS: Data Vitals/I&O Vitals and I&O: Vital Signs Temperature 36.3 C L 01/11/24 11:49 Temperature Source Tympanic 01/11/24 11:49 Pulse 70 01/11/24 11:49 Pulse Rhythm Irregular 01/10/24 21:59 Pulse 94 H 01/10/24 16:22 Respiratory Rate 19 01/11/24 11:49 Respiratory Effort Short of Breath 01/10/24 21:59 Respiratory Depth Normal 01/10/24 21:59 Respiratory Pattern Normal 01/10/24 21:59 Blood Pressure 113/77 01/11/24 11:49 Blood Pressure Mean 101 01/10/24 16:21 Blood Pressure Position Sitting 01/10/24 12:55 Pulse Oximetry 96 01/11/24 11:49 Oxygen Delivery Method Room Air 01/11/24 11:49 Oxygen Flow Rate 0 01/11/24 11:49 Pain Level 0 01/11/24 11:49 Intake & Output 01/10/24 01/11/24 01/11/24 23:59 11:59 23:59 Intake Total 100 / 100 360 / 360 Output Total 1250 / 1250 525 / 525 Balance -1150 / -1150 -165 / -165 Weight 132.449 kg 132.2 kg Intake: IV 100 / 100 Oral 360 / 360 Output: Urine 1250 / 1250 525 / 525 Other: Urine Color Yellow Urine Appearance Clear Clear Urine Odor None Comment Reported from ED Data Completed and Pending Labs on day of discharge: Labs from last 24 hours 01/11/24 01/10/24 01/10/24 06:20 21:50 20:06 WBC 8.05 RBC 3.90 L Hgb 11.3 Hct 36.4 MCV 93 MCH 29.0 MCHC 31.0 L RDW 14.5 Plt Count 236 MPV 11.1 H D-Dimer VBG pH 7.41 VBG pCO2 39 L VBG pO2 137 VBG HCO3 24 VBG Total CO2 VBG O2 Saturation > 99 VBG Base Excess -1 VBG Lactate 0.9 Sodium 136 Potassium 4.5 Chloride 99 Carbon Dioxide 25.3 Anion Gap 11.7 H BUN 46 H Creatinine 1.9 H Est GFR (CKD-EPI 2020) 27.20 Glucose 199 H Calcium 9.8 Magnesium 2.7 H Total Bilirubin 0.47 AST 17 ALT 17 Alkaline Phosphatase 98 Troponin I NT-Pro-B Natriuret Pep Total Protein 7.7 Albumin 3.5 Lipase TSH 1.33 Urine Color Yellow Urine Clarity Clear Urine pH 6.0 Ur Specific [place] 1.010 Urine Protein Negative Urine Ketones Negative Urine Blood Trace-intact H Urine Nitrite Negative Urine Bilirubin Negative Urine Urobilinogen 0.2 Ur Leukocyte Esterase Negative Urine RBC 3-5 H Urine WBC Negative Ur Epithelial Cells Rare Urine Crystals Negative Urine Bacteria Rare Urine Casts Negative Urine Mucus Negative Ur Culture Indicated? No Urine Glucose Negative 01/10/24 01/10/24 01/10/24 17:14 15:18 13:20 WBC RBC Hgb Hct MCV MCH MCHC RDW Plt Count MPV D-Dimer 902 H VBG pH VBG pCO2 VBG pO2 VBG HCO3 VBG Total CO2 VBG O2 Saturation VBG Base Excess VBG Lactate Sodium 138 Potassium 4.2 Chloride 101 Carbon Dioxide 26.8 Anion Gap 10.2 BUN 36 H Creatinine 1.6 H Est GFR (CKD-EPI 2020) 33.42 Glucose 139 H Calcium 9.8 Magnesium Total Bilirubin 0.51 AST 16 ALT 19 Alkaline Phosphatase 96 Troponin I 28 24 23 NT-Pro-B Natriuret Pep 6150 H Total Protein 7.9 Albumin 3.6 Lipase 18 TSH Urine Color Urine Clarity Urine pH Ur Specific [place] Urine Protein Urine Ketones Urine Blood Urine Nitrite Urine Bilirubin Urine Urobilinogen Ur Leukocyte Esterase Urine RBC Urine WBC Ur Epithelial Cells Urine Crystals Urine Bacteria Urine Casts Urine Mucus Ur Culture Indicated? Urine Glucose PFSH All Active Problems Lung cancer (Chronic) CHF (congestive heart failure) (Chronic) COPD (chronic obstructive pulmonary disease) (Chronic) Respiratory failure (Acute) Acute and chronic respiratory failure with hypoxia (Acute) Ventricular trigeminy (Acute) Driving safety issue (Acute) When vertigo is active (she will need RCT as she cannot drive with active vertigo.) >> grounded when vertigo is active.. Vertigo (Acute) Per ER report in [place] Hypertrophic toenail (Acute) Does anyone make HV? [ ] Podiatry PRN Xeroderma (Acute) Hemoglobin A1c above reference range (Acute) Nocturnal polyuria (Acute) Postmenopausal estrogen deficiency (Chronic) Requesting DEXA scan At risk for osteoporosis (Acute) Hx smoking, PPI and prednisone use. Chronic obstructive lung disease (Acute 02/20/02) FEV1 0.98 (34%PRED, 58% FVC) FOLLOWING Left PNEUMONECTOMY; home O2 since lung surg 2003 Secondary anemia (Acute 01/20/05) Mild improvement, 08/2021 (11.9) .. Hx: due to chemotherapy; PERSISTS 11.5 (08/2015 [facility]); 10.8 2017 [facility] [place]; also due to CKD Chronic kidney disease (Acute) stage 3. [facility] Denilson Rendon MD 05/19/18 Decreased stamina (Acute) Fatigue (Acute) Caregiver stress (Chronic) Son @ home, Psych Disorder affecting ADL, including worsening paranoia. Skin lesion of breast (Acute) Appears as shira kerat .. Actinic keratosis (Acute) 10/06/20 destruction of lesion, left cheek, left nasal lip, right paranasal, right nasal bridge Diabetes mellitus (Chronic) dx 06/2003, co-managed ; goal A1c <7.5; most labs at [facility] Confusing mix of meds with recent changes 2' Cr levels being affected. Appreciate re-eval, along with diet review by Latoya! 12/13/17 ik Met with Nephro ([facility]), glad of no microhematuria .. meds and diet reviewed, trialing mild changes, d/c glimepuride. Diabetes mellitus type 2, uncontrolled (Acute 04/09/17) dx 06/2003, co-managed ; goal A1c <7.5; most labs at [facility] Type 2 diabetes mellitus with stage 3 chronic kidney disease, with long-term current use of insulin (Acute) [facility] [place], goal A1c < 7.5 .. 6.8 today (June 2017)! .. down from 8/7.6/8.2 in 2017. Cr 1.42 03/2017, 1.65 (07/17/17). Apr 2017 [facility] Endo note mentions Nephro referral, placing per 07/17/16 lab results. Stressful life events affecting family and household (Acute) Counseling on health promotion and disease prevention (Acute) Adenocarcinoma of lung (Chronic 03/22/04) Asthma (Acute 05/15/11) Oxygen desaturation (Chronic 03/2004) Family history of colon cancer (Acute 05/15/11) Stasis dermatitis (Acute 05/12/02) Hx of pneumonectomy (Chronic 03/2004) Left lung removed, sent home with oxygen Vitamin D deficiency (Acute 12/26/10) Osteoarthritis (Acute 01/12/10) mild R hip on x-ray/clinical Obesity (Acute 05/12/02) Good weight loss, 290 today .. down from 311 last year. Hyperlipidemia (Acute 08/21/03) Gastroesophageal reflux disease (Acute 05/19/05) CHRONIC PRILOSEC OTC Essential hypertension (Chronic 09/14/03) Hx elevatd DBP, but she monitors closely. Meds tolerated. Low, but asympto, BP today, 01/29/18. Low normal/baseline, 07/2018. sowmya Chronic osteoarthritis (Acute 05/15/11) Medical History Smoker (05/15/11) QUIT? Renal insufficiency (2018) Seeing Nephro; improved. Surgical History pneumonectomy (04/20/04) Left, [facility] Tonsillectomy and adenoidectomy (03/02/10) Extraction of cataract (~01/2015) [facility] Family History Mother , stroke, pneumonia at age 82. Personal history of malignant neoplasm Father , suicide at age 75. No problems noted. Sister Age: 71 No problems noted. Brother , bowel obstruction at age 46. No problems noted. Social History Smoking/Tobacco Use Status: Former Tobacco Use Smoking risk assessment performed?: Yes Alcohol Intake: former Year quit: 1990 Drug use: Never Substance use type: does not use Household members: children Housing: house Number of Children: 2 number of grandchildren: 1 Communication Needs: None What is your relationship status?: Panel score (0-1 are the most socially isolated patients): 0 What type of physical activity do you participate in: none Seatbelt use: always Drive intox or ride w/intox tanker driver: No Working smoke detector in home: Yes Carbon monox detector in home: Yes Do you feel safe at home: Yes Do you feel safe in your relationship?: Yes Time Spent with Patient Time Spent with Patient: 70-84 minutes4 Time was spent: preparing to see the patient(eg.review tests), obtaining and/or reviewing separately otained hiistory, ordering medications,tests, procedures, indepentently interpreting results and counseling the patient
--- NOTE | 2024-01-11 17:32 | INITIAL_ITS ---
Date of service: 01/11/24 Time of Service: 17:32 Care Management Initial Assmt Initial Assessment Reason for Hospitalization: acute on chronic hypoxic respiratory failure Functional Status/Living Situation Patient Presentation: Pennie was sitting up in bed when CM met with her. She was pleasant and engaged well in conversation. Her RN asked me to discuss resources for her regarding the care of her adult son who is disabled due to mental illness, and she cares for at home. Pennie stated that she is feeling better than earlier, when she was tearful, worried about planning to make sure her son is cared for, if she can no longer provide his care. CM discussed different levels of care that are available, including assisted living, enhanced residential care and AF homes. She stated that she does not want to burden her other son, Jamie, who does not feel that he can care for her disabled son, Dyllan. CM sent a referral to [facility] for support for Pennie, such as homemaking services, as well as long term care phlebotomist planning for both her and her son, Dyllan. Pennie stated that she is being discharged today, and she is happy to be going home. CM will continue to follow. Town of Residence: [place] Resides with: Child (Son, Dyllan, disabled) Natural Supports: Son, Jamie, lives in [place] Employment Status: Retired Instrumental Activities of Daily Living (ADLs): Independent Medications Medication Management: No Issues/Barriers identified Physical Functioning/Mobility Assistive Device: home O2, as needed Advance Directives Advance Directives: Do you have an Advance Directive: N 07/09/12 00:39 AD On File at [facility]: N 06/20/12 10:12 Date Asked 01/10/24 01/10/24 12:56 AD Date Reviewed COLST On File at [facility] COLST Date Scanned Insurance Coverage/Financial Issues Insurance: [facility] BC/BS federal Care Team Visit Care Team Role Provider Type Amanda Barnett DO Primary Care Provider OSTEOPATHIC DOCTOR TERRA Pham Emergency Provider [employer] Marlon Stern Admit Provider NON-[facility] STAFF PHYSICIAN Attending Provider Discharge Potential Discharge Needs: Imaging/labs (o/p echo) and PCP F/U Appt Anticipated Barriers to Discharge: None Identified Patient/Family Education Needs: Review discharge instructions, discuss Ask Me Three Transportation: Private vehicle Plan: Pennie will be discharged home today with no new services. She will be transported home via private vehicle by family. She will follow up with her PCP and discharge plan of care. CM will continue to follow. PFSH All Active Problems Lung cancer (Chronic) CHF (congestive heart failure) (Chronic) COPD (chronic obstructive pulmonary disease) (Chronic) Respiratory failure (Acute) Acute and chronic respiratory failure with hypoxia (Acute) Ventricular trigeminy (Acute) Driving safety issue (Acute) When vertigo is active (she will need RCT as she cannot drive with active vertigo.) >> grounded when vertigo is active.. Vertigo (Acute) Per ER report in [place] Hypertrophic toenail (Acute) Does anyone make HV? [ ] Podiatry PRN Xeroderma (Acute) Hemoglobin A1c above reference range (Acute) Nocturnal polyuria (Acute) Postmenopausal estrogen deficiency (Chronic) Requesting DEXA scan At risk for osteoporosis (Acute) Hx smoking, PPI and prednisone use. Chronic obstructive lung disease (Acute 02/20/02) FEV1 0.98 (34%PRED, 58% FVC) FOLLOWING Left PNEUMONECTOMY; home O2 since lung surg 2003 Secondary anemia (Acute 01/20/05) Mild improvement, 08/2021 (11.9) .. Hx: due to chemotherapy; PERSISTS 11.5 (08/2015 [facility] [place] 10.8 2017 [facility] [place]; also due to CKD Chronic kidney disease (Acute) stage 3. [facility] [place] Denilson Rendon MD 05/19/18 Decreased stamina (Acute) Fatigue (Acute) Caregiver stress (Chronic) Son @ home, Psych Disorder affecting ADL, including worsening paranoia. Skin lesion of breast (Acute) Appears as shira kerat .. Actinic keratosis (Acute) 10/06/20 destruction of lesion, left cheek, left nasal lip, right paranasal, right nasal bridge Diabetes mellitus (Chronic) dx 06/2003, co-managed ; goal A1c <7.5; most labs at [facility] [place] Confusing mix of meds with recent changes 2' Cr levels being affected. Appreciate re-eval, along with diet review by Trina and Jung! 12/13/17 ik Met with Nephro ([facility] [place]), glad of no microhematuria .. meds and diet reviewed, trialing mild changes, d/c glimepuride. Diabetes mellitus type 2, uncontrolled (Acute 04/09/17) dx 06/2003, co-managed ; goal A1c <7.5; most labs at [facility] [place] Type 2 diabetes mellitus with stage 3 chronic kidney disease, with long-term current use of insulin (Acute) [facility] [place], goal A1c < 7.5 .. 6.8 today (June 2017)! .. down from 8/7.6/8.2 in 2017. Cr 1.42 03/2017, 1.65 (07/17/17). Apr 2017 [facility] [place] Endo note mentions Nephro referral, placing per 07/17/16 lab results. Stressful life events affecting family and household (Acute) Counseling on health promotion and disease prevention (Acute) Adenocarcinoma of lung (Chronic 03/22/04) Asthma (Acute 05/15/11) Oxygen desaturation (Chronic 03/2004) Family history of colon cancer (Acute 05/15/11) Stasis dermatitis (Acute 05/12/02) Hx of pneumonectomy (Chronic 03/2004) Left lung removed, sent home with oxygen Vitamin D deficiency (Acute 12/26/10) Osteoarthritis (Acute 01/12/10) mild R hip on x-ray/clinical Obesity (Acute 05/12/02) Good weight loss, 290 today .. down from 311 last year. Hyperlipidemia (Acute 08/21/03) Gastroesophageal reflux disease (Acute 05/19/05) CHRONIC PRILOSEC OTC Essential hypertension (Chronic 09/14/03) Hx elevatd DBP, but she monitors closely. Meds tolerated. Low, but asympto, BP today, 01/29/18. Low normal/baseline, 07/2018. ik Chronic osteoarthritis (Acute 05/15/11) Medical History Smoker (05/15/11) QUIT? Renal insufficiency (2018) Seeing Nephro; improved. Surgical History pneumonectomy (04/20/04) Left, [facility] [place] Tonsillectomy and adenoidectomy (03/02/10) Extraction of cataract (~01/2015) [facility] [place] Family History Mother , stroke, pneumonia at age 82. Personal history of malignant neoplasm Father , suicide at age 75. No problems noted. Sister Age: 71 No problems noted. Brother , bowel obstruction at age 46. No problems noted. Social History Smoking/Tobacco Use Status: Former Tobacco Use Smoking risk assessment performed?: Yes Alcohol Intake: former Year quit: 1990 Drug use: Never Substance use type: does not use Household members: children Housing: house Number of Children: 2 number of grandchildren: 1 Communication Needs: None What is your relationship status?: Panel score (0-1 are the most socially isolated patients): 0 What type of physical activity do you participate in: none Seatbelt use: always Drive intox or ride w/intox delivery route driver: No Working smoke detector in home: Yes Carbon monox detector in home: Yes Do you feel safe at home: Yes Do you feel safe in your relationship?: Yes SDOH(Care Management) Screening Will the Patient Participate in the Screening?: Yes Do you worry about having a steady place to live?: no Problems where you live: mold and water leaks In the past 12 months, have you had to go without electric, gas, oil or water in your home?: no Have you or anyone in your house had to go without enough food to eat?: no Has lack of transportation kept you from medical appointments or from doing things needed for daily living?: no Has anyone in your support network made you feel unsafe for any reason?: no Health Related Social Needs Health related social needs: inadequate housing(Z59.1)
--- NOTE | 2024-01-11 17:52 | CMDISCH_ITS ---
Date of service: 01/11/24 Time of Service: 17:52 LACE Index Scoring Tool Questions: Length of Stay (in days): 1 Was the patient admitted via the E.D.?: Yes Comorbidities: Diabetes w/o Complication, Congestive Heart Failure, Chronic Pulmonary Disease, Any Tumor and Liver or Renal Disease E.D. Visits: 0 Answers: Total Score: 9 Risk of Readmission: Low Risk Care Management Discharge Plan Reason for Hospitalization: acute on chronic hypoxic respiratory failure Discharge Plan: Pennie returned home today with no new services. RED sent a referral to [facility] for more support at home and correction planning for her and her son. She was transported home via private vehicle. She will follow up with her PCP and discharge plan of care. She is happy to be going home. Patient/Family Education Needs: Review discharge instructions and limitations, discussion of self care needs including ask me three. SDOH Health Related Social Needs: Health related social needs inadequate housing Health related social needs: problem related to primary support group(Z63.9) Health related social needs details: Pennie 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 Referrals and interventions: RED discussed options for housing in the community for her son, and sent a referral to [facility] for correction planning for both her and her son. Care Management Referrals: NATAN
== END 2024-01-11 15:20 | disposition home or self-care (01) ==
LOC: ER 15:46 → MS 21:41
PROVIDERS: Physician Assistant; Admitting Provider Family Medicine; Emergency Provider Physician Assistant; PCP Student in an Organized Health Care Education/Training Program; Visit Provider Family Medicine
DX: I13.0 Hypertensive heart and chronic kidney disease with heart failure and stage 1 through stage 4 chronic kidney disease, or unspecified chronic kidney disease (principal); J96.21 Acute and chronic respiratory failure with hypoxia; N18.32 Chronic kidney disease, stage 3b; E11.22 Type 2 diabetes mellitus with diabetic chronic kidney disease; Z79.4 Long term (current) use of insulin; I50.9 Heart failure, unspecified; Z90.2 Acquired absence of lung [part of]; J44.9 Chronic obstructive pulmonary disease, unspecified; E66.01 Morbid (severe) obesity due to excess calories; D63.1 Anemia in chronic kidney disease; Z85.118 Personal history of other malignant neoplasm of bronchus and lung; E78.5 Hyperlipidemia, unspecified; K21.9 Gastro-esophageal reflux disease without esophagitis; Z87.891 Personal history of nicotine dependence
CPT/HCPCS: 00123; 36415; 36416; 71275; 80053; 82805; 82962; 83690; 85027; 87637; 93005; 93308; 94640; 96365; 96375; 96376; 99285; J1650; 81003; 81015; 83605; 83735; 83880; 84443; 84484; 85025; 85379; 93010; 94664; 94760; 99223; 99239; J1815; J1940; J1941; J3475; J3490; J7512; J7620

== ENCOUNTER 2024-01-14 01:11 | Outpatient (CLI) | payer MEDICARE, BC, SELFPAY ==
--- NOTE | 2024-01-14 12:30 | DI.US_ITS ---
APPROVED REPORT EXAM: Comprehensive 2D, Doppler, and color-flow Echocardiogram Patient Location: Out-Patient Preschool Assistant Principal: Nicolás Gasca RDCS (AE) Indications: Heart failure Other Information Study Quality: Adequate. Technically limited study due to body habitus. Conclusion Normal left ventricular wall thickness and chamber size. Ejection fraction is 55%. No segmental wal l motion abnormalities are identified Right ventricle is dilated and hypocontractile. Diastolic septal flattening suggest right ventricula r pressure overload. Normal left atrial size. Moderately dilated right atrium Aortic valve is trileaflet and sclerotic with trace regurgitation Mild mitral annular calcification, mild mitral regurgitation Normal tricuspid valve with mild regurgitation. Estimated right ventricular systolic pressure is 64 mmHg Wall motion Left Ventricle The left ventricle is normal size. The left ventricular systolic function is normal. The left ventri cular ejection fraction is within the normal range. There is normal left ventricular wall thickness. There is normal LV segmental wall motion. There is no ventricular septal defect visualized. LVEF is 5 5%. Right Ventricle Right ventricle is mildly dilated. Right ventricle is mildly hypokinetic. Atria The left atrium size is normal. Right atrium is moderately dilated. The interatrial septum is intact with no evidence for an atrial septal defect. Aortic Valve The aortic valve is mildly sclerotic. Aortic valve is trileaflet. There is no aortic valvular stenosi s. Trace aortic regurgitation. Mitral Valve Mild mitral annular calcification. No evidence of mitral valve stenosis. Mild mitral regurgitation. Tricuspid Valve The tricuspid valve is normal in structure. There is no tricuspid valve stenosis. Mild tricuspid regu rgitation. The RVSP is 63.6 mmHg. Pulmonic Valve The pulmonary valve is normal in structure. There is no pulmonic valvular stenosis. There is no pulmo angélica valvular regurgitation. Great Vessels The aortic root is normal in size. The ascending aorta is normal in size. Aortic arch is not well vis ualized. The IVC collapses <50% with inspiration. Pericardium There is no pericardial effusion. 2D Dimensions IVSD d PLAX 0.75 cm F: 0.6-1.0 Ao Root d 2.46 cm F: 2.7 - 3.3 LVPW d PLAX 0.80 cm F: 0.6 - 1.0 Ao Asc Diam d 3.06 cm F: 2.3 - 3.1 LVID d PLAX 5.94 cm F: 3.8 - 5.2 LVDs 4.19 cm F: 2.2 - 3.5 LV EF Teichholz 55.4 % FS 29.35 % LV EDV (Teich) 175.7 mL LV ESV (Teich) 78.3 mL Stroke Vol Index (Teich) 41.98 M-Mode TAPSE 1.78 cm (M/F) >1.7 LV Volumes - Method of Disks (Robertson's) Single Plane 2D LV Volumes Biplane 2D LV Volumes LV EDV A4C 79.3 mL LV EDV BP 78.91 mL F: 46 - 106 LV ESV A4C 37.3 mL LV ESV BP LVEF(%) A4C 53.0 % LVEF(%) BP LV EDV A2C 72.7 mL LV EDV BP Index 33.86 mL/m2 F: 29 - 61 LA Volume LA Length A4C 3.7 cm LA Length A2C LA Area A4C s 8.92 cm2 LA Area A2C s LA Vol A4C A-L 18.14 mL LA Vol A2C A-L LA Vol Biplane A-L LA Vol A4C MOD 16.2 mL LA Vol A2C MOD LA Vol BP MOD RA Volume RA Area A4C 15.1 cm2 RA ESV A4C (A-L) 44.8mL RA Vol/BSA A4C A-L RA Length A4C 4.3 cm RA ESV A4C (MOD) 41.7mL LV Diastology MV E' medial 0.055 (>0.07 m/s) MV E Vmax 0.88 (0.4-1.3 m/s) MV E/E' MED 16.03 (<14) MV A Vmax 0.85 (0.4-1.3 m/s) MV E' lateral 0.068 (>0.1 m/s) E/A Ratio 1.0 MV E/E' LAT 13.03 (<14) MV E' Average 0.061 m/s MV E/E'(average) 14.37 Aortic Valve AoV Vmax 2.01 m/s LVOT Vmax 0.89 m/s AoV Peak Grad 16.2 mmHg LVOT Peak Grad 3.2 mmHg AoV Area (Vmax) 1.40 cm2 LVOT VTI 0.234 m AoV VTI 0.469 m LVOT Mean Grad 2.0 mmHg AoV Mean David. 1.45 m/s LVOT SV 74.21 mL AoV Mean Grad 9.2 mmHg LVOT Diam s 2.00 cm AoV Area (VTI) 1.58 cm2 AV Regurg Peak Gr. 16.15 mmHg Velocity Ratio 0.44 Mitral Valve MV DT 153 (160-240 msec) MV Vmax TIPS 0.92 m/s MV Mean Grad 1.5 (<2mmHg) MV VTI 0.249 m Pulmonary Valve PV Vmax 1.22 (0.5-1.5 m/s) RVOT Vmax 0.72 m/s PV Peak Grad 6.0 mmHg RVOT Peak Gr. 2.1 mmHg PV Mean Advid 0.89 m/s RVOT VTI 0.176 m PV Mean Grad 3.5 mmHg RVOT Mean Gr. 1.3 mmHg Tricuspid Valve RA Pressure 8.00 mmHg TR Vmax 3.73 m/s TR Peak Grad 55.6 mmHg RVSP (TR) 63.6 mmHg
== END 2024-01-14 01:31 ==
LOC: DI 01:11
PROVIDERS: PCP Student in an Organized Health Care Education/Training Program; Visit Provider Nurse Practitioner Acute Care
DX: I50.9 Heart failure, unspecified (principal)
CPT/HCPCS: 93306

== ENCOUNTER 2024-01-31 02:37 | Outpatient (CLI) | payer MEDICARE, BC, SELFPAY ==
[2024-01-31 12:45] LABS: HGB 10.5 g/dL (11.2-15.7)
[2024-01-31 13:18] LABS: ALT 13 U/L (14-59); AST 18 U/L (15-37); Albumin 3.5 g/dL (3.4-5.0); Alkaline Phosphatase 115 U/L (46-116); Anion Gap 7.8 mmol/L (3-11); BUN 45 mg/dL (7-18); CO2 29.2 mmol/L (21.0-32.0); Calcium 9.8 mg/dL (8.5-10.1); Chloride 104 mmol/L (98-107); Estimated GFR 25.57 (mL/min/1.73m2); Glucose 182 mg/dL (74-106); Magnesium 2.5 mg/dL (1.8-2.4); Potassium 4.5 mmol/L (3.5-5.1); Sodium 141 mmol/L (136-145); Total Protein 7.5 g/dL (6.4-8.2)
[2024-01-31 13:55] LABS: Iron 49 ug/dL (50-170)
== END 2024-01-31 02:38 | disposition home or self-care (01) ==
LOC: LBO 02:38
PROVIDERS: PCP Student in an Organized Health Care Education/Training Program; Referring Provider Student in an Organized Health Care Education/Training Program; Visit Provider Student in an Organized Health Care Education/Training Program
DX: N18.9 Chronic kidney disease, unspecified (principal); R53.83 Other fatigue; Z91.89 Other specified personal risk factors, not elsewhere classified
CPT/HCPCS: 36415; 80053; 83540; 83735; 85018

== ENCOUNTER 2024-03-02 07:59 | Outpatient (CLI) | payer MEDICARE, BC, SELFPAY ==
--- NOTE | 2024-03-02 07:45 | RT.EKG_ITS ---
APPROVED REPORT Exam: Resting ECG Reason for Exam: chf Patient Location: O HR:91 bpm ECG Measurements Heart Rate 91 AXIS VA 167 P 60 QRSd 112 QRS 64 QT 374 T 57 QTc 461 Conclusion Sinus rhythm...normal P axis, V-rate 50- 99 Multiple ventricular premature complexes...V complexes w/ short R-R intervls Borderline intraventricular conduction delay...QRSd >112mS
== END 2024-03-02 08:00 | disposition home or self-care (01) ==
LOC: DI.CARD 08:00
PROVIDERS: PCP Student in an Organized Health Care Education/Training Program; Visit Provider Internal Medicine Cardiovascular Disease
DX: I49.8 Other specified cardiac arrhythmias (principal); I50.9 Heart failure, unspecified; I45.9 Conduction disorder, unspecified
CPT/HCPCS: 93010

== ENCOUNTER → 2024-03-02 11:10 | Outpatient (BNVA) | payer MEDICARE, BC, SELFPAY | PROVIDERS: PCP Student in an Organized Health Care Education/Training Program; Referring Provider Student in an Organized Health Care Education/Training Program; Visit Provider Internal Medicine Cardiovascular Disease | DX: I27.81 Cor pulmonale (chronic) (principal); J44.9 Chronic obstructive pulmonary disease, unspecified; N18.32 Chronic kidney disease, stage 3b; C34.92 Malignant neoplasm of unspecified part of left bronchus or lung; I49.8 Other specified cardiac arrhythmias | CPT/HCPCS: 93005; 99214 ==

== ENCOUNTER 2024-03-10 02:59 | Outpatient (CLI) | payer MEDICARE, BC, SELFPAY ==
[2024-03-10 13:50] LABS: Abs Immature Grans 0.03 10^3/uL (0.0-0.06); Absolute Basophil Count 0.07 10^3/uL (0.0-0.2); Absolute Eosinophil Count 0.08 10^3/uL (0.0-0.7); Absolute Lymphocyte Count 1.23 10^3/uL (1.2-3.4); Absolute Monocyte Count 0.66 10^3/uL (0.1-0.8); Basophils % 0.8 %; Eosinophils % 0.9 %; HCT 36.6 % (36.0-46.0); HGB 11.1 g/dL (11.2-15.7); Immature Grans % 0.3 %; Lymphocytes % 14.2 %; MCH 28.9 pg (27.0-33.0); MCHC 30.3 % (32.0-36.0); MCV 95 fL (80-95); MPV 10.8 fL (8.0-11.0); Monocytes % 7.6 %; Neutrophils % 76.2 %; Platelet Count 228 10^3/uL (130-400); RBC 3.84 10^6/uL (3.93-5.22); RDW 14.2 % (11.7-14.6); RDW-SD 49.5 fL; WBC 8.67 10^3/uL (4.4-10.8)
[2024-03-10 14:16] LABS: Anion Gap 7.6 mmol/L (3-11); BUN 32 mg/dL (7-18); CO2 31.4 mmol/L (21.0-32.0); CREATININE 1.7 mg/dL (0.55-1.02); Calcium 9.4 mg/dL (8.5-10.1); Chloride 104 mmol/L (98-107); Estimated GFR 31.08 (mL/min/1.73m2); Ferritin 55 ng/mL (8-252); Glucose 173 mg/dL (74-106); Magnesium 2.2 mg/dL (1.8-2.4); Potassium 4.4 mmol/L (3.5-5.1); Sodium 143 mmol/L (136-145)
[2024-03-10 14:43] LABS: Iron 52 ug/dL (50-170); Total Iron Binding Capacity 305 ug/dL (250-450); Transferrin Sat 17 % (15-50)
== END 2024-03-10 03:00 | disposition home or self-care (01) ==
LOC: LBO 02:59
PROVIDERS: PCP Student in an Organized Health Care Education/Training Program; Referring Provider Student in an Organized Health Care Education/Training Program; Visit Provider Student in an Organized Health Care Education/Training Program
DX: N18.9 Chronic kidney disease, unspecified; R71.0 Precipitous drop in hematocrit; Z91.89 Other specified personal risk factors, not elsewhere classified; E83.42 Hypomagnesemia
CPT/HCPCS: 36415; 80048; 82728; 83540; 83550; 83735; 85025

== ENCOUNTER 2024-05-20 13:17 | Inpatient (IN) | payer MEDICARE, BC, SELFPAY ==
[2024-05-20] VITALS (34 sets, daily range): BP systolic 114–179; BP diastolic 51–134; PULSE 44–112; RESP 16–31; TEMP 36.6; O2SAT 94–100
--- NOTE | 2024-05-20 13:15 | RT.EKG_ITS ---
APPROVED REPORT Exam: Resting ECG Reason for Exam: sob Patient Location: E HR:110 bpm ECG Measurements Heart Rate 110 AXIS NJ 169 P 92 QRSd 99 QRS 102 QT 364 T 116 QTc 494 Conclusion Sinus tachycardia, rate 110 Ventricular bigeminy with three beat run of NSVT No STEMI Compared to priors, ectopy burden increased
[2024-05-20 13:45] LABS: BE (Venous) 3 mmol/L (-2-3); HCO3 (Venous) 28 mmol/L (23-28); O2 Sat (Venous) 71 %; TCO2 (Venous) 26 mmol/L (24-29); pCO2 (Venous) 49 mmHg (41-51); pH (Venous) 7.37 (7.31-7.41); pO2 (Venous) 40 mmHg
[2024-05-20 13:46] LABS: Abs Immature Grans 0.06 10^3/uL (0.0-0.06); Absolute Basophil Count 0.06 10^3/uL (0.0-0.2); Absolute Eosinophil Count 0.08 10^3/uL (0.0-0.7); Absolute Lymphocyte Count 1.06 10^3/uL (1.2-3.4); Absolute Monocyte Count 0.62 10^3/uL (0.1-0.8); Absolute Neutrophil Count 7.18 10^3/uL (1.2-6.7); Basophils % 0.7 %; Eosinophils % 0.9 %; HCT 39.9 % (36.0-46.0); HGB 12.2 g/dL (11.2-15.7); Immature Grans % 0.7 %; Lymphocytes % 11.7 %; MCH 28.4 pg (27.0-33.0); MCHC 30.6 % (32.0-36.0); MCV 93 fL (80-95); MPV 10.6 fL (8.0-11.0); Monocytes % 6.8 %; Neutrophils % 79.2 %; Platelet Count 241 10^3/uL (130-400); RBC 4.29 10^6/uL (3.93-5.22); RDW 14.3 % (11.7-14.6); RDW-SD 48.9 fL; WBC 9.06 10^3/uL (4.4-10.8)
--- NOTE | 2024-05-20 13:51 | DI.RAD_ITS ---
Exam(s) XR PORTABLE CHEST AP EXAM: XR PORTABLE CHEST AP CLINICAL HISTORY: SOB, CHF, hx L. lung resection TECHNIQUE: 2D digital imaging was performed of the chest. One image was obtained. An AP view was ob tained. COMPARISON: CR CHEST 2 VIEWS PA,LAT from 02/09/[address] CHEST PE CTA from 01/10/2024 FINDINGS: MEDIASTINUM: Normal. HEART: Normal. PULMONARY VASCULATURE: Normal. LUNGS: There is again seen complete opacification of the left hemithorax with complete shift of the m idline structures into the left hemithorax. This is unchanged. The patient is status post left pneu monectomy. Surgical clips are seen in the left hilum. The right lung is clear. PLEURAL SPACE: No pleural effusion or pneumothorax. BONE:Within normal limits for the patient's age. OTHER FINDINGS:Normal. IMPRESSION: There has been no change in appearance of the chest compared to the prior examinations. No acute abn ormalities identified. DATA REPOSITORY: RADIATION DOSE DELIVERED:
[2024-05-20 14:13] LABS: ALT 15 U/L (14-59); AST 12 U/L (15-37); Albumin 3.8 g/dL (3.4-5.0); Alkaline Phosphatase 110 U/L (46-116); Anion Gap 4.2 mmol/L (3-11); BUN 34 mg/dL (7-18); Bilirubin, Total 0.38 mg/dL (0.2-1.0); CO2 31.8 mmol/L (21.0-32.0); CREATININE 1.9 mg/dL (0.55-1.02); Calcium 9.8 mg/dL (8.5-10.1); Chloride 103 mmol/L (98-107); Glucose 225 mg/dL (74-106); Magnesium 2.4 mg/dL (1.8-2.4); NT-proBNP 6288 pg/mL (<300); Potassium 4.8 mmol/L (3.5-5.1); Sodium 139 mmol/L (136-145); Total Protein 7.7 g/dL (6.4-8.2); Troponin I 25 ng/L (<or=51)
--- NOTE | 2024-05-20 14:52 | W.ED.GENAD ---
Discharge Plan Disposition Patient Disposition: Admit to [facility] Condition: Stable Discharge Details Chief Complaint: SOB Clinical Impression: Acute exacerbation of CHF (congestive heart failure), Hyperlipidemia, Hx of pneumonectomy, Chronic obstructive lung disease, CKD (chronic kidney disease) stage 4, GFR 15-29 ml/min, Cor pulmonale, chronic, Diabetes mellitus type 2, uncontrolled, Essential hypertension, Gastroesophageal reflux disease Primary Care Provider: Unknown,Unknown ED Provider: Allison Du Home Meds and New Rx's Prescriptions: No Action (DME) Nebulizer Qty: 1 0RF Rx Instructions: As directed cholecalciferol (vitamin D3) 25 mcg (1,000 unit) capsule 25 mcg PO DAILY nystatin 100,000 unit/gram ointment 1 applic topical BID Qty: 30 1RF Rx Instructions: Apply under breasts x 1-2 weeks ammonium lactate 12 % lotion 1 applic topical BID PRN (Reason: dry flaky skin) Qty: 225 1RF Rx Instructions: Trial for legs, ankles, forearms fluorouracil [Efudex] 5 % cream 1 applic topical BID furosemide [Lasix] 20 mg tablet 20 mg PO DAILY Qty: 90 3RF Rx Instructions: Continuing, post HOSPITALIZATION (rvw w/ CARD in February) magnesium oxide 400 mg magnesium capsule 400 mg PO DAILY Gaviscon Extra Strength 160-105 mg tablet,chewable 4 tab PO HS PRN tiotropium bromide [Spiriva with HandiHaler] 18 mcg capsule, w/inhalation device 1 cap Inhalation DAILY Qty: 90 3RF Rx Instructions: for COPD cyanocobalamin (vitamin B-12) [Vitamin B-12] 1,000 MCG tablet 1,000 mcg PO DAILY docusate sodium [Colace] 100 MG capsule 100 mg PO PRN Proctofoam HC 10 GM foam 10 gm RC PRN Qty: 1 Rx Instructions: as needed for hemorrhoidal inflammation aspirin [Aspir-81] 81 MG tablet,delayed release (DR/EC) 81 mg PO DAILY (DME) Oxygen Tank See Dose Instructions .ROUTE .MEDSUPPLY Qty: 1 Rx Instructions: 2 L as directed (DME) pen needle, diabetic [Comfort EZ Pen Pearl] 31 gauge x 5/16 needle See Dose Instructions .ROUTE .MEDSUPPLY Qty: 300 3RF Dose Instruction: As directed Rx Instructions: TID triamcinolone acetonide 0.1 % cream 1 applic topical DAILY Qty: 453.6 0RF fluticasone propionate 50 mcg/actuation spray,suspension 2 spray NS DAILY PRN (Reason: nasal congestion) Qty: 16 1RF (DME) lancets [OneTouch Delica Lancets] 33 gauge misc 1 ea Miscellaneous QID Qty: 360 3RF Rx Instructions: Lancets needed to test glucose to maintain A1C less than 7. Dx code E11.9 ik (DME) OneTouch Ultra Test Strip 1 ea Miscellaneous QID Qty: 360 3RF Rx Instructions: For DM E11.9 to maintain A1C less than 7 atorvastatin 40 mg tablet See Rx Instructions .ROUTE .COMPLEX Qty: 90 3RF Dose Instruction: TAKE 1 TABLET DAILY TO LOWER CHOLESTEROL, REDUCE CARDIOVASCULAR RISK Rx Instructions: TAKE 1 TABLET DAILY TO LOWER CHOLESTEROL, REDUCE ARDIOVASCULAR RISK lisinopril 10 mg tablet 10 mg PO DAILY MDD 15mg Qty: 90 3RF Rx Instructions: add to 5mg for 15mg daily lisinopril 5 mg tablet 5 mg PO DAILY MDD 15mg Qty: 90 3RF Rx Instructions: Add to 10mg for 15mg daily Apidra SoloStar U-100 Insulin 100 unit/mL insulin pen See Rx Instructions subcut BID Qty: 15 3RF Rx Instructions: 4-10 U per sliding scale subcut twice a day; as directed per sliding scale, rarely for high sugar AC hydrochlorothiazide 12.5 mg tablet 12.5 mg PO DAILY Qty: 90 3RF Rx Instructions: FOR BP CONTROL UNDER 130/80 Tradjenta 5 mg tablet 5 mg PO DAILY Qty: 90 3RF fluticasone propion-salmeterol [Wixela Inhub] 100-50 mcg/dose blister with device 1 inh inhalation BID Qty: 180 6RF albuterol sulfate 90 mcg/actuation HFA aerosol inhaler See Rx Instructions .ROUTE .COMPLEX Qty: 25.5 3RF Dose Instruction: INHALE TWO PUFFS BY MOUTH EVERY 4 HOURS NEEDED FOR SHORTNESS OF BREATH OR WHEEZING DIRECTED FOR COPD, WHEEZING Rx Instructions: INHALE TWO PUFFS BY MOUTH EVERY 4 HOURS NEEDED FOR SHORTNESS OF BREATH OR WHEEZING DIRECTED FOR COPD, WHEEZING glimepiride 1 mg tablet 1 mg PO QAM Qty: 90 3RF famotidine 40 mg tablet 40 mg PO QHS PRN (Reason: GERD flare) Qty: 90 3RF (DME) FreeStyle Omkar 14 Day Sensor Kit See Rx Instructions .Route Qty: 6 3RF Rx Instructions: For DM, to maintain A1C < 8 ipratropium-albuterol 0.5 mg-3 mg(2.5 mg base)/3 mL solution for nebulization 3 ml IH Q6H PRN (Reason: wheezing or SOB) Qty: 90 3RF insulin degludec [Tresiba FlexTouch U-100] 100 unit/mL (3 mL) insulin pen 32 unit SC HS HPI General Mode of arrival: ambulatory. Date/Time Provider Initiated Documentation: 05/20/24 13:32. Limitations to Documentation: no limitations. Information obtained by: patient, family and old records reviewed. HPI Narrative: HPI: This is a 73-year-old female patient with a past medical history significant for stage IV CKD, cor pulmonale, CHF, anemia, status post left lung resection, COPD, diabetes, and hypertension, presenting for shortness of breath. The patient was brought in by EMS, states that she had worsening of her shortness of breath since this morning, and specifically notices that she has decrease in her exercise tolerance, and can barely get up and move without having to take breaks and catch her breath. She wears 2 L of oxygen at home at baseline, and has since a recent admission to the hospital for CHF exacerbation in the fall. States that she has been taking her 20 mg of Lasix daily and is passing urine typically. She has been trying to drink lots of fluids to stay hydrated, because if she does not she gets very dizzy. She states that she has noticed some clear fluid weeping from the bottom of her legs, left greater than right, and was concerned for developing infection. She is not experiencing any fevers, chills, chest pain, states that she is never required BiPAP or intubation. Exam: Gen: Awake and alert, in no apparent distress HEENT: Non-icteric sclera Neck: Supple Lungs: The patient becomes quite winded with any movement, unable to speak even after taking off her jacket. Tachypnea appreciated. Lung sounds absent left side consistent with pneumonectomy, crackles appreciated right base greater than right apex. CV: Appears well perfused, heart with tachycardic rate and regular rhythm, no murmurs auscultated Abdomen: Non-distended MSK: Moves 4 extremities without apparent limitation in ROM. The patient has trace peripheral edema bilaterally, does have an area of clear fluid seeping from the medial aspect of the ankle, with some surrounding punctate redness under the Rubens bandage. No evidence of induration, swelling, or cellulitic changes. Skin: Visualized skin without rashes, cyanosis. Neuro: Normal Gait, no obvious focal deficits or facial asymmetry. Speaks in full, clear sentences. Psych: Appropriate for situation. MDM: This is a 73-year-old female patient presenting for evaluation of shortness of breath. My differential includes but is not limited to CHF exacerbation, certainly considered reactive airway disease exacerbation though the patient is without significant wheezing. I considered pneumonia, viral URI, pneumothorax and pleural effusion. Considered ACS, anemia, kidney failure, liver disease. We will obtain laboratory studies to include CBC, CMP, magnesium, troponin, BNP, and blood gas. At this time the patient is saturating well on 3 L by nasal cannula, which is just slightly above her baseline of 2 L. We will obtain a chest x-ray and an EKG. ED Course: The EKG shows a sinus tachycardia with bigeminy, and an occasional 3 beat run of nonsustained V. tach. On review of her records she does have a history of quadrigeminy and trigeminy. No evidence for STEMI. Chest x-ray reveals no consolidations, pleural effusions, or other acute significant findings in the right lung, left lung expectedly absent with appropriate postsurgical changes. I reviewed the patient's laboratory studies, which reveal no leukocytosis, anemia or thrombocytopenia. Chemistry panel reveals no significant electrolyte derangements, kidney function is at the patient's baseline with a GFR of 27, and I note no liver abnormalities. Initial troponin is low making acute ischemia less likely, VBG without hypercarbia or acidosis. The BNP is elevated to 6200, concerning for heart failure exacerbation. I provided the patient with a 40 mg dose of Lasix, and was able to wean her down to her home 2 L of oxygen. However, her significant work of breathing and her history of renal dysfunction will make her a challenge to diurese safely, and I recommended admission. The hospitalist service has graciously accepted this patient for admission to their service, and she was otherwise hemodynamically stable while under my care. Allison Du MD Related Data Home Medications ?Medication ?Instructions ?Recorded ?Confirmed cyanocobalamin (vitamin B-12) 1,000 mcg PO DAILY 06/20/12 03/02/24 1,000 mcg tablet (Vitamin B-12) docusate sodium 100 mg capsule 100 mg PO PRN 06/20/12 03/02/24 (Colace) hydrocortisone 1 %-pramoxine 1 % 10 gm RC PRN #1 tube 10/19/14 03/02/24 rectal foam (Proctofoam HC) aspirin 81 mg tablet,delayed 81 mg PO DAILY 01/17/16 03/02/24 release (Aspir-) Oxygen #1 ea 06/20/18 03/02/24 Nebulizer #1 ea 05/29/19 03/02/24 pen needle, diabetic 31 gauge x #300 ea 09/01/19 03/02/2409/04 (Comfort EZ Pen Pearl) magnesium oxide 400 mg PO DAILY 10/04/20 03/02/24 cholecalciferol (vitamin D3) 25 25 mcg PO DAILY 11/07/20 03/02/24 mcg (1,000 unit) capsule nystatin 100,000 unit/gram topical 1 applic topical BID #30 grams 11/25/20 03/02/24 ointment triamcinolone acetonide 0.1 % 1 applic topical DAILY #453.6 grams 05/13/21 03/02/24 topical cream aluminum hydrox-magnesium carb 160 4 tab PO HS PRN 07/20/21 03/02/24 mg-105 mg chewable tablet (Gaviscon Extra Strength) fluticasone propionate 50 2 spray NS DAILY PRN nasal 09/14/21 03/02/24 mcg/actuation nasal congestion #16 grams spray,suspension lancets 33 gauge (OneTouch Delica #360 ea 01/16/22 03/02/24 Lancets) ammonium lactate 12 % lotion 1 applic topical BID PRN dry flaky 02/13/23 03/02/24 skin #225 grams blood sugar diagnostic (OneTouch #360 strips 02/24/23 03/02/24 Ultra Test strips) atorvastatin 40 mg tablet See Rx Instructions .Route 07/15/23 03/02/24 .COMPLEX #90 tabs lisinopril 10 mg tablet 10 mg PO DAILY #90 tabs 07/15/23 03/02/24 lisinopril 5 mg tablet 5 mg PO DAILY #90 tabs 07/15/23 03/02/24 insulin glulisine U-100 100 See Rx Instructions subcut BID #15 07/21/23 03/02/24 unit/mL subcutaneous pen (Apidra mL SoloStar U-100 Insulin) tiotropium bromide 18 mcg capsule 1 cap inhalation DAILY #90 caps 08/07/23 03/02/24 with inhalation device (Spiriva with HandiHaler) hydrochlorothiazide 12.5 mg tablet 12.5 mg PO DAILY #90 tab-caps 08/23/23 03/02/24 fluticasone 100 mcg-salmeterol 50 1 inh inhalation BID #180 ea 09/28/23 03/02/24 mcg/dose blistr powdr for inhalation (Wixela Inhub) linagliptin 5 mg tablet (Tradjenta) 5 mg PO DAILY #90 tabs 09/28/23 03/02/24 insulin degludec 100 unit/mL (3 32 unit subcut HS 01/10/24 03/02/24 mL) subcutaneous pen (Tresiba FlexTouch U-100 insulin) albuterol sulfate 90 mcg/actuation See Rx Instructions .Route 01/27/24 03/02/24 aerosol inhaler .COMPLEX #25.5 grams fluorouracil 5 % topical cream 1 applic topical BID actinic 02/18/24 03/02/24 (Efudex) keratosis furosemide 20 mg tablet (Lasix) 20 mg PO DAILY presumed fluid 02/18/24 03/02/24 overload #90 tabs famotidine 40 mg tablet 40 mg PO QHS PRN GERD flare #90 03/17/24 tabs flash glucose sensor (FreeStyle #6 ea 03/17/24 Omkar 14 Day Sensor kit) glimepiride 1 mg tablet 1 mg PO QAM #90 tabs 03/17/24 ipratropium 0.5 mg-albuterol 3 mg 3 ml inhalation Q6H PRN wheezing 04/10/24 (2.5 mg base)/3 mL nebulization or SOB #90 mL soln Previous Rx's ?Medication ?Instructions ?Recorded Nebulizer #1 ea 05/29/19 pen needle, diabetic 31 gauge x #300 ea 09/01/19 (Comfort EZ Pen Pearl) nystatin 100,000 unit/gram topical 1 applic topical BID #30 grams 11/25/20 ointment triamcinolone acetonide 0.1 % 1 applic topical DAILY #453.6 grams 05/13/21 topical cream fluticasone propionate 50 2 spray NS DAILY PRN nasal 09/14/21 mcg/actuation nasal congestion #16 grams spray,suspension lancets 33 gauge (Z[employer] CorporationTouch Delica #360 ea 01/16/22 Lancets) ammonium lactate 12 % lotion 1 applic topical BID PRN dry flaky 02/13/23 skin #225 grams blood sugar diagnostic ([facility] strips 02/24/23 Ultra Test strips) atorvastatin 40 mg tablet See Rx Instructions .Route 07/15/23 .COMPLEX #90 tabs lisinopril 10 mg tablet 10 mg PO DAILY #90 tabs 07/15/23 lisinopril 5 mg tablet 5 mg PO DAILY #90 tabs 07/15/23 insulin glulisine U-100 100 See Rx Instructions subcut BID #15 07/21/23 unit/mL subcutaneous pen (Apidra mL SoloStar U-100 Insulin) tiotropium bromide 18 mcg capsule 1 cap inhalation DAILY #90 caps 08/07/23 with inhalation device (Spiriva with HandiHaler) hydrochlorothiazide 12.5 mg tablet 12.5 mg PO DAILY #90 tab-caps 08/23/23 fluticasone 100 mcg-salmeterol 50 1 inh inhalation BID #180 ea 09/28/23 mcg/dose blistr powdr for inhalation (Wixela Inhub) linagliptin 5 mg tablet (Tradjenta) 5 mg PO DAILY #90 tabs 09/28/23 albuterol sulfate 90 mcg/actuation See Rx Instructions .Route 01/27/24 aerosol inhaler .COMPLEX #25.5 grams furosemide 20 mg tablet (Lasix) 20 mg PO DAILY presumed fluid 02/18/24 overload #90 tabs famotidine 40 mg tablet 40 mg PO QHS PRN GERD flare #90 03/17/24 tabs flash glucose sensor (FreeStyle #6 ea 03/17/24 Omkar 14 Day Sensor kit) glimepiride 1 mg tablet 1 mg PO QAM #90 tabs 03/17/24 ipratropium 0.5 mg-albuterol 3 mg 3 ml inhalation Q6H PRN wheezing 04/10/24 (2.5 mg base)/3 mL nebulization or SOB #90 mL soln Allergies Allergy/AdvReac Type Severity Reaction Status Date / Time morphine Allergy vomit Verified 03/02/24 11:50 exenatide (From [place]) AdvReac Intermediate gi upset Verified 03/02/24 11:50 General Stated Complaint: SOB KAREN: 2 Course Vital Signs Vital signs: Vital Signs Pulse 110 H 05/20/24 13:20 Respiratory Rate 24 05/20/24 13:20 Blood Pressure 173/94 H 05/20/24 13:20 Pulse Oximetry 95 05/20/24 13:20 Pulse 110 H 05/20/24 13:20 Respiratory Rate 24 05/20/24 13:57 Respiratory Effort Short of Breath 05/20/24 13:57 Respiratory Depth Shallow 05/20/24 13:57 Respiratory Pattern Normal 05/20/24 13:57 Blood Pressure 173/94 H 05/20/24 13:20 Pulse Oximetry 95 05/20/24 13:20 Lab/Test Results Lab/Test Results: Laboratory Tests Range/Units 05/20/24 13:36 WBC (4.4-10.8) 10^3/uL 9.06 RBC (3.93-5.22) 10^6/uL 4.29 Hgb (11.2-15.7) g/dL 12.2 Hct (36.0-46.0) % 39.9 MCV (80-95) fL 93 MCH (27.0-33.0) pg 28.4 MCHC (32.0-36.0) % 30.6 L RDW (11.7-14.6) % 14.3 Plt Count (130-400) 10^3/uL 241 MPV (8.0-11.0) fL 10.6 Immature Gran % % 0.7 Neutrophils % % 79.2 Lymphocytes % % 11.7 Monocytes % % 6.8 Eosinophils % % 0.9 Basophils % % 0.7 Nucleated RBC % (0.0-0.3) % 0.0 Absolute Neutrophils (1.2-6.7) 10^3/uL 7.18 H Absolute Lymphocytes (1.2-3.4) 10^3/uL 1.06 L Absolute Monocytes (0.1-0.8) 10^3/uL 0.62 Absolute Eosinophils (0.0-0.7) 10^3/uL 0.08 Absolute Basophils (0.0-0.2) 10^3/uL 0.06 VBG pH (7.31-7.41) 7.37 VBG pCO2 (41-51) mmHg 49 VBG pO2 mmHg 40 VBG HCO3 (23-28) mmol/L 28 VBG Total CO2 (24-29) mmol/L 26 VBG O2 Saturation % 71 VBG Base Excess (-2-3) mmol/L 3 Sodium (136-145) mmol/L 139 Potassium (3.5-5.1) mmol/L 4.8 Chloride (98-107) mmol/L 103 Carbon Dioxide (21.0-32.0) mmol/L 31.8 Anion Gap (3-11) mmol/L 4.2 BUN (7-18) mg/dL 34 H Creatinine (0.55-1.02) mg/dL 1.9 H Est GFR (CKD-EPI 2020) (mL/min/1.73m2) 27.20 Glucose (74-106) mg/dL 225 H Calcium (8.5-10.1) mg/dL 9.8 Magnesium (1.8-2.4) mg/dL 2.4 Total Bilirubin (0.2-1.0) mg/dL 0.38 AST (15-37) U/L 12 L ALT (14-59) U/L 15 Alkaline Phosphatase (46-116) U/L 110 Troponin I (<or=51) ng/L 25 NT-Pro-B Natriuret Pep (<300) pg/mL 6288 H Total Protein (6.4-8.2) g/dL 7.7 Albumin (3.4-5.0) g/dL 3.8 Medical Decision Making Quality:SDOH Health Related Social Needs: Health related social needs details Pennie 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 PFSH All Active Problems (Updated 05/20/24 @ 16:59 by Allison Du MD) Acute exacerbation of CHF (congestive heart failure) (Acute) Cor pulmonale, chronic (Acute) CKD (chronic kidney disease) stage 4, GFR 15-29 ml/min (Acute) Fall 2023 LUANN Anemia (Chronic) CHF (congestive heart failure) (Chronic) Respiratory failure (Acute) Acute and chronic respiratory failure with hypoxia (Acute) Ventricular trigeminy (Acute) Driving safety issue (Acute) When vertigo is active (she will need RCT as she cannot drive with active vertigo.) >> grounded when vertigo is active.. Vertigo (Acute) Per ER report in [place] Hypertrophic toenail (Acute) Does anyone make HV? [ ] Podiatry PRN Xeroderma (Acute) Hemoglobin A1c above reference range (Acute) Nocturnal polyuria (Acute) Postmenopausal estrogen deficiency (Chronic) Requesting DEXA scan At risk for osteoporosis (Acute) Hx smoking, PPI and prednisone use. Chronic obstructive lung disease (Acute 02/20/02) FEV1 0.98 (34%PRED, 58% FVC) FOLLOWING Left PNEUMONECTOMY; home O2 since lung surg 2003 Secondary anemia (Acute 01/20/05) Mild improvement, 08/2021 (11.9) .. Hx: due to chemotherapy; PERSISTS 11.5 (08/2015 [facility] [place] 10.8 2016 [facility] [place]; also due to CKD Chronic kidney disease (Acute) stage 3. [facility] [place] Denilson Rendon MD 05/19/18 Decreased stamina (Acute) Fatigue (Acute) Caregiver stress (Chronic) Son @ home, Psych Disorder affecting ADL, including worsening paranoia. Skin lesion of breast (Acute) Appears as shira kerat .. Actinic keratosis (Acute) 10/06/20 destruction of lesion, left cheek, left nasal lip, right paranasal, right nasal bridge Diabetes mellitus (Chronic) dx 06/2003, co-managed ; goal A1c <7.5; most labs at [facility] [place] Confusing mix of meds with recent changes 2' Cr levels being affected. Appreciate re-eval, along with diet review by Latoya! 12/13/17 ik Met with Nephro ([facility] [place]), glajosee of no microhematuria .. meds and diet reviewed, trialing mild changes, d/c glimepuride. Diabetes mellitus type 2, uncontrolled (Acute 04/09/17) dx 06/2003, co-managed ; goal A1c <7.5; most labs at [facility] [place] Type 2 diabetes mellitus with stage 3 chronic kidney disease, with long-term current use of insulin (Acute) [facility] [place], goal A1c < 7.5 .. 6.8 today (June 2017)! .. down from 8/7.6/8.2 in 2017. Cr 1.42 03/2017, 1.65 (07/17/17). Apr 2017 [facility] [place] Endo note mentions Nephro referral, placing per 07/17/16 lab results. Stressful life events affecting family and household (Acute) Counseling on health promotion and disease prevention (Acute) Asthma (Acute 05/15/11) Oxygen desaturation (Chronic 03/2004) Family history of colon cancer (Acute 05/15/11) Stasis dermatitis (Acute 05/12/02) Hx of pneumonectomy (Chronic 03/2004) Left lung removed, sent home with oxygen Vitamin D deficiency (Acute 12/26/10) Osteoarthritis (Acute 01/12/10) mild R hip on x-ray/clinical Obesity (Acute 05/12/02) Good weight loss, 290 today .. down from 311 last year. Hyperlipidemia (Acute 08/21/03) Gastroesophageal reflux disease (Acute 05/19/05) CHRONIC PRILOSEC OTC Essential hypertension (Chronic 09/14/03) Hx elevatd DBP, but she monitors closely. Meds tolerated. Low, but asympto, BP today, 01/29/18. Low normal/baseline, 07/2018. ik Medical History (Updated 05/20/24 @ 16:59 by Allison Du MD) Lung cancer Adenocarcinoma of lung (03/22/04) Smoker (05/15/11) QUIT? Renal insufficiency (2017) Seeing Nephro; improved. Surgical History (Updated 05/20/24 @ 16:59 by Allison Du MD) pneumonectomy (04/20/04) Left, [facility] [place] Tonsillectomy and adenoidectomy (03/02/10) Extraction of cataract (~01/2015) [facility] [place] Family History Mother , stroke, pneumonia at age 82. Personal history of malignant neoplasm Father , suicide at age 75. No problems noted. Sister Age: 72 No problems noted. Brother , bowel obstruction at age 46. No problems noted. Social History Smoking/Tobacco Use Status: Former Tobacco Use Smoking risk assessment performed?: Yes Alcohol Intake: former Year quit: 1990 Drug use: Never Substance use type: does not use Household members: children Housing: house Number of Children: 2 number of grandchildren: 1 Communication Needs: None What is your relationship status?: Panel score (0-1 are the most socially isolated patients): 0 What type of physical activity do you participate in: none Seatbelt use: always Drive intox or ride w/intox straight truck driver: No Working smoke detector in home: Yes Carbon monox detector in home: Yes Do you feel safe at home: Yes Do you feel safe in your relationship?: Yes
[2024-05-20] MEDS: Furosemide 40 MG/4 ML VIAL IVP (14:56)
[2024-05-20 15:51] LABS: Troponin I 42 ng/L (<or=51)
[2024-05-20 17:34] LABS: Troponin I 56 ng/L (<or=51)
--- NOTE | 2024-05-20 18:05 | W.PM.HP.N ---
Date of service: 05/20/24 Time of Service: 18:05 Assessment and Plan Assessment and plan (1) Acute and chronic respiratory failure with hypoxia: Status: Acute Assessment and plan: Chronic intermittent use of oxygen who over the last 2 weeks has had increasing need for oxygen supplementation. She had no evidence of PE or pneumonia, She has a history of CHF and has an elevated BNP 6288 She was given IV Lasix and did have a slow improvement with patient oxygen being weaned down to baseline of 2 lpm/nc. She diuresed well. Troponins were negative and there is no evidence of acute ischemic cardiac issues. She has a lung cancer spiral with left pneumonectomy and does have limited lung capacity with COPD. Respiratory treatment will be continued the same. She will not be placed on steroids or antibiotics. She is a full code. (2) Ventricular trigeminy: Status: Acute Assessment and plan: Patient had increased ectopy with PVCs in the ED. Troponins are negative x 3 she did not appear to have any acute cardiac issues. PVCs have become less frequent. 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 Patient is a full code. (3) Chronic kidney disease: Status: Acute Assessment and plan: Stable with monitoring while hospitalized. There is no associated anemia. (4) Diabetes mellitus: Status: Chronic Assessment and plan: Glucometer measurements ACHS with sliding scale coverage while hospitalized. Hold long-acting insulin which can be reinitiated in the next 2 to 3 days without much loss of affect being Tresiba. Her oral Tradjenta will be continued. Glimepiride will be held. (5) Adenocarcinoma of lung: Assessment and plan: Status post left pneumonectomy with decreased lung capacity. (6) Essential hypertension: Status: Chronic Assessment and plan: Continue outpatient medical therapy with monitoring and adjusting as needed. History of Present Illness History of Present Illness Chief Complaint: Shortness of breath Narrative: This is a 73-year-old female who presents with shortness of breath. Laboratory studies including a complete blood count, comprehensive metabolic panel, magnesium, troponin, BNP, and blood gas analysis. The patient is maintaining good oxygen saturation at 3 L by nasal cannula, which is just slightly above her baseline of 2 L. A chest x-ray and EKG were also obtained. The EKG showed sinus tachycardia with bigeminy, occasional 3-beat runs of nonsustained ventricular tachycardia, and a history of quadrigeminy and trigeminy. There was no evidence of STEMI. Chest x-ray revealed no consolidations, pleural effusions, or acute significant findings in the right lung. The left lung was absent as expected due to previous surgical resection. Laboratory results showed no signs of leukocytosis, anemia, or thrombocytopenia. The chemistry panel did not reveal significant electrolyte abnormalities. Kidney function is at her baseline, with a glomerular filtration rate of 27. There were no liver abnormalities noted. The initial troponin was low, which makes acute ischemia less likely. A venous blood gas revealed no hypercarbia or acidosis. The BNP was markedly elevated at 6200, which is concerning for a heart failure exacerbation. In light of the findings, patient received a 40 mg dose of Lasix and was able to be weaned down to her home oxygen level of 2 L. However, given her significant work of breathing and renal dysfunction, diuresing her safely will be a challenge. Patient is admitted to the medical floor for further testing and treatment. Patient is in agreement with current plan of care. Patient is a full code. Review of Systems All systems reviewed & are unremarkable except as noted in HPI and below PFSH All Active Problems (Updated 05/20/24 @ 16:59 by Allison Du MD) Acute exacerbation of CHF (congestive heart failure) (Acute) Cor pulmonale, chronic (Acute) CKD (chronic kidney disease) stage 4, GFR 15-29 ml/min (Acute) Fall 2023 LUANN Anemia (Chronic) CHF (congestive heart failure) (Chronic) Respiratory failure (Acute) Acute and chronic respiratory failure with hypoxia (Acute) Ventricular trigeminy (Acute) Driving safety issue (Acute) When vertigo is active (she will need RCT as she cannot drive with active vertigo.) >> grounded when vertigo is active.. Vertigo (Acute) Per ER report in [place] Hypertrophic toenail (Acute) Does anyone make HV? [ ] Podiatry PRN Xeroderma (Acute) Hemoglobin A1c above reference range (Acute) Nocturnal polyuria (Acute) Postmenopausal estrogen deficiency (Chronic) Requesting DEXA scan At risk for osteoporosis (Acute) Hx smoking, PPI and prednisone use. Chronic obstructive lung disease (Acute 02/20/02) FEV1 0.98 (34%PRED, 58% FVC) FOLLOWING Left PNEUMONECTOMY; home O2 since lung surg 2003 Secondary anemia (Acute 01/20/05) Mild improvement, 08/2021 (11.9) .. Hx: due to chemotherapy; PERSISTS 11.5 (08/2015 [facility] [place] 10.8 2016 [facility] [place]; also due to CKD Chronic kidney disease (Acute) stage 3. [facility] [place] Denilson Rendon MD 05/19/18 Decreased stamina (Acute) Fatigue (Acute) Caregiver stress (Chronic) Son @ home, Psych Disorder affecting ADL, including worsening paranoia. Skin lesion of breast (Acute) Appears as shira kerat .. Actinic keratosis (Acute) 10/06/20 destruction of lesion, left cheek, left nasal lip, right paranasal, right nasal bridge Diabetes mellitus (Chronic) dx 06/2003, co-managed ; goal A1c <7.5; most labs at [facility] [place] Confusing mix of meds with recent changes 2' Cr levels being affected. Appreciate re-eval, along with diet review by Latoya! 12/13/17 ik Met with Nephro ([facility] [place]), glad of no microhematuria .. meds and diet reviewed, trialing mild changes, d/c glimepuride. Diabetes mellitus type 2, uncontrolled (Acute 04/09/17) dx 06/2003, co-managed ; goal A1c <7.5; most labs at [facility] [place] Type 2 diabetes mellitus with stage 3 chronic kidney disease, with long-term current use of insulin (Acute) [facility] [place], goal A1c < 7.5 .. 6.8 today (June 2017)! .. down from 8/7.6/8.2 in 2017. Cr 1.42 03/2017, 1.65 (07/17/17). Apr 2017 [facility] [place] Endo note mentions Nephro referral, placing per 07/17/16 lab results. Stressful life events affecting family and household (Acute) Counseling on health promotion and disease prevention (Acute) Asthma (Acute 05/15/11) Oxygen desaturation (Chronic 03/2004) Family history of colon cancer (Acute 05/15/11) Stasis dermatitis (Acute 05/12/02) Hx of pneumonectomy (Chronic 03/2004) Left lung removed, sent home with oxygen Vitamin D deficiency (Acute 12/26/10) Osteoarthritis (Acute 01/12/10) mild R hip on x-ray/clinical Obesity (Acute 05/12/02) Good weight loss, 290 today .. down from 311 last year. Hyperlipidemia (Acute 08/21/03) Gastroesophageal reflux disease (Acute 05/19/05) CHRONIC PRILOSEC OTC Essential hypertension (Chronic 09/14/03) Hx elevatd DBP, but she monitors closely. Meds tolerated. Low, but asympto, BP today, 01/29/18. Low normal/baseline, 07/2018. ik Medical History (Updated 05/20/24 @ 16:59 by Allison Du MD) Lung cancer Adenocarcinoma of lung (03/22/04) Smoker (05/15/11) QUIT? Renal insufficiency (2018) Seeing Nephro; improved. Surgical History (Updated 05/20/24 @ 16:59 by Allison Du MD) pneumonectomy (04/20/04) Left, [facility] [place] Tonsillectomy and adenoidectomy (03/02/10) Extraction of cataract (~01/2015) [facility] [place] Family History Mother , stroke, pneumonia at age 82. Personal history of malignant neoplasm Father , suicide at age 75. No problems noted. Sister Age: 72 No problems noted. Brother , bowel obstruction at age 46. No problems noted. Social History Smoking/Tobacco Use Status: Former Tobacco Use Smoking risk assessment performed?: Yes Alcohol Intake: former Year quit: 1990 Drug use: Never Substance use type: does not use Household members: children Housing: house Number of Children: 2 number of grandchildren: 1 Communication Needs: None What is your relationship status?: Panel score (0-1 are the most socially isolated patients): 0 What type of physical activity do you participate in: none Seatbelt use: always Drive intox or ride w/intox salesperson driver: No Working smoke detector in home: Yes Carbon monox detector in home: Yes Do you feel safe at home: Yes Do you feel safe in your relationship?: Yes Meds Allergies and Home Medications Allergies Allergy/AdvReac Type Severity Reaction Status Date / Time morphine Allergy vomit Verified 03/02/24 11:50 exenatide (From [place]) AdvReac Intermediate gi upset Verified 03/02/24 11:50 Home Medications ?Medication ?Instructions ?Recorded ?Confirmed ?Type cyanocobalamin (vitamin B-12) 1,000 mcg PO DAILY 06/20/12 05/20/24 History 1,000 mcg tablet (Vitamin B-12) docusate sodium 100 mg capsule 100 mg PO PRN 06/20/12 05/20/24 History (Colace) hydrocortisone 1 %-pramoxine 1 % 10 gm RC PRN #1 tube 10/19/14 05/20/24 History rectal foam (Proctofoam HC) aspirin 81 mg tablet,delayed 81 mg PO DAILY 01/17/16 05/20/24 History release (Aspir-) Oxygen #1 ea 06/20/18 03/02/24 History Nebulizer #1 ea 05/29/19 03/02/24 Rx pen needle, diabetic 31 gauge x #300 ea 09/01/19 03/02/24 Rx 5/16 (Comfort EZ Pen [place]) magnesium oxide 400 mg PO DAILY 10/04/20 05/20/24 History cholecalciferol (vitamin D3) 25 25 mcg PO DAILY 11/07/20 05/20/24 History mcg (1,000 unit) capsule nystatin 100,000 unit/gram topical 1 applic topical BID #30 grams 11/25/20 05/20/24 Rx ointment aluminum hydrox-magnesium carb 160 4 tab PO HS PRN 07/20/21 05/20/24 History mg-105 mg chewable tablet (Gaviscon Extra Strength) fluticasone propionate 50 2 spray NS DAILY PRN nasal 09/14/21 05/20/24 Rx mcg/actuation nasal congestion #16 grams spray,suspension lancets 33 gauge (OneTouch Delica #360 ea 01/16/22 03/02/24 Rx Lancets) ammonium lactate 12 % lotion 1 applic topical BID PRN dry flaky 02/13/23 05/20/24 Rx skin #225 grams blood sugar diagnostic (Game InsightTouch #360 strips 02/24/23 03/02/24 Rx Ultra Test strips) atorvastatin 40 mg tablet See Rx Instructions .Route 07/15/23 05/20/24 Rx .COMPLEX #90 tabs lisinopril 10 mg tablet 10 mg PO DAILY #90 tabs 07/15/23 05/20/24 Rx lisinopril 5 mg tablet 5 mg PO DAILY #90 tabs 07/15/23 05/20/24 Rx insulin glulisine U-100 100 See Rx Instructions subcut BID #15 07/21/23 05/20/24 Rx unit/mL subcutaneous pen (Apidra mL SoloStar U-100 Insulin) tiotropium bromide 18 mcg capsule 1 cap inhalation DAILY #90 caps 08/07/23 05/20/24 Rx with inhalation device (Spiriva with HandiHaler) hydrochlorothiazide 12.5 mg tablet 12.5 mg PO DAILY #90 tab-caps 08/23/23 05/20/24 Rx fluticasone 100 mcg-salmeterol 50 1 inh inhalation BID #180 ea 09/28/23 05/20/24 Rx mcg/dose blistr powdr for inhalation (Wixela Inhub) linagliptin 5 mg tablet (Tradjenta) 5 mg PO DAILY #90 tabs 09/28/23 05/20/24 Rx insulin degludec 100 unit/mL (3 32 unit subcut HS 01/10/24 05/20/24 History mL) subcutaneous pen (Tresiba FlexTouch U-100 insulin) albuterol sulfate 90 mcg/actuation See Rx Instructions .Route 01/27/24 05/20/24 Rx aerosol inhaler .COMPLEX #25.5 grams fluorouracil 5 % topical cream 1 applic topical BID actinic 02/18/24 05/20/24 History (Efudex) keratosis furosemide 20 mg tablet (Lasix) 20 mg PO DAILY presumed fluid 02/18/24 05/20/24 Rx overload #90 tabs famotidine 40 mg tablet 40 mg PO QHS PRN GERD flare #90 03/17/24 05/20/24 Rx tabs flash glucose sensor (FreeStyle #6 ea 03/17/24 Rx Omkar 14 Day Sensor kit) glimepiride 1 mg tablet 1 mg PO QAM #90 tabs 03/17/24 05/20/24 Rx ipratropium 0.5 mg-albuterol 3 mg 3 ml inhalation Q6H PRN wheezing 04/10/24 05/20/24 Rx (2.5 mg base)/3 mL nebulization or SOB #90 mL soln Exam Const General: cooperative and no acute distress Orientation: alert, awake and oriented x3 HENMT Head: normal to inspection, normocephalic and atraumatic Mouth: oral mucosae normal Chest Chest: normal inspection of the chest Resp Effort & Inspection: normal respiratory effort Auscultation: diminished lung sounds Cardio Rate: regular rate Rhythm: regular rhythm Skin General skin exam: no rashes or lesions noted Psych Appearance: grossly normal Mental Status: mental status grossly normal Speech and Movement: speech and movement normal Mood: congruent mood Affect: normal affect Attitude: cooperative Thought Process: normal Thought Content: normal Insight: insight good Judgment: judgment good Results Labs 05/20/24 13:36 05/20/24 13:36 Labs: Laboratory Results - last 24 hr 05/20/24 05/20/24 05/20/24 13:36 15:10 17:09 WBC 9.06 RBC 4.29 Hgb 12.2 Hct 39.9 MCV 93 MCH 28.4 MCHC 30.6 L RDW 14.3 Plt Count 241 MPV 10.6 Immature Gran % 0.7 Neutrophils % 79.2 Band Neutrophils % Lymphocytes % 11.7 Atypical Lymphs % Monocytes % 6.8 Eosinophils % 0.9 Basophils % 0.7 Metamyelocytes % Myelocytes % Promyelocytes % Other Cells % Nucleated RBC % 0.0 Absolute Neutrophils 7.18 H Absolute Lymphocytes 1.06 L Absolute Monocytes 0.62 Absolute Eosinophils 0.08 Absolute Basophils 0.06 RBC Morphology Polychromasia Hypochromasia Poikilocytosis Basophilic Stippling Anisocytosis Microcytosis Macrocytosis Spherocytes Tear Drop Cells Ovalocytes Stomatocytes [place] Bodies [place] Cells/Echinocytes Acanthocytes (Spur) Schistocytes VBG pH 7.37 VBG pCO2 49 VBG pO2 40 VBG HCO3 28 VBG Total CO2 26 VBG O2 Saturation 71 VBG Base Excess 3 Sodium 139 Potassium 4.8 Chloride 103 Carbon Dioxide 31.8 Anion Gap 4.2 BUN 34 H Creatinine 1.9 H Est GFR (CKD-EPI 2020) 27.20 Glucose 225 H Calcium 9.8 Magnesium 2.4 Total Bilirubin 0.38 AST 12 L ALT 15 Alkaline Phosphatase 110 Troponin I 25 42 56 H* NT-Pro-B Natriuret Pep 6288 H Total Protein 7.7 Albumin 3.8 05/20/24 17:32 WBC Cancelled RBC Cancelled Hgb Cancelled Hct Cancelled MCV Cancelled MCH Cancelled MCHC Cancelled RDW Cancelled Plt Count Cancelled MPV Cancelled Immature Gran % Cancelled Neutrophils % Cancelled Band Neutrophils % Cancelled Lymphocytes % Cancelled Atypical Lymphs % Cancelled Monocytes % Cancelled Eosinophils % Cancelled Basophils % Cancelled Metamyelocytes % Cancelled Myelocytes % Cancelled Promyelocytes % Cancelled Other Cells % Cancelled Nucleated RBC % Cancelled Absolute Neutrophils Cancelled Absolute Lymphocytes Cancelled Absolute Monocytes Cancelled Absolute Eosinophils Cancelled Absolute Basophils Cancelled RBC Morphology Cancelled Polychromasia Cancelled Hypochromasia Cancelled Poikilocytosis Cancelled Basophilic Stippling Cancelled Anisocytosis Cancelled Microcytosis Cancelled Macrocytosis Cancelled Spherocytes Cancelled Tear Drop Cells Cancelled Ovalocytes Cancelled Stomatocytes Cancelled [place] Bodies Cancelled [place] Cells/Echinocytes Cancelled Acanthocytes (Spur) Cancelled Schistocytes Cancelled VBG pH VBG pCO2 VBG pO2 VBG HCO3 VBG Total CO2 VBG O2 Saturation VBG Base Excess Sodium Potassium Chloride Carbon Dioxide Anion Gap BUN Creatinine Est GFR (CKD-EPI 2020) Glucose Calcium Magnesium Total Bilirubin AST ALT Alkaline Phosphatase Troponin I NT-Pro-B Natriuret Pep Total Protein Albumin Last Vital Signs Pulse 47 L 05/20/24 16:01 Resp 20 05/20/24 16:01 BP 114/96 H 05/20/24 16:01 Pulse Ox 96 05/20/24 16:01 Time Spent Time spent with Patient: 40-54 minutes Time was spent: preparing to see the patient(eg.review tests), referring, communicating with other health rn intensive care unit, indepentently interpreting results, counseling the patient and care coordination
--- NOTE | 2024-05-20 18:09 | W.PC.ACHO ---
Registration Status: Primary Language: Preferred Language: ED Information & Data Chief Complaint SOB 05/20/24 16:18 Chief Complaint SOB 05/20/24 14:53 Triage Note SOB started this AM, 05/20/24 13:20 increased work of breathing with movements, weeping to legs EMS Medical / Surgical History (Last Updated 04/10/24 @ 12:27 by Amanda Barnett DO) Lung cancer Adenocarcinoma of lung (03/22/04) Smoker (05/15/11) Renal insufficiency (2018) (Last Reviewed 03/02/24 @ 11:26 by Ana Starr MD) pneumonectomy (04/20/04) Tonsillectomy and adenoidectomy (03/02/10) Extraction of cataract (~01/2015) Most Recent Vital Signs Pulse 47 L 05/20/24 16:01 Pulse 111 H 05/20/24 16:01 Respiratory Rate 20 05/20/24 16:01 Respiratory Effort Short of Breath 05/20/24 13:57 Respiratory Depth Shallow 05/20/24 13:57 Respiratory Pattern Normal 05/20/24 13:57 Blood Pressure 114/96 H 05/20/24 16:01 Blood Pressure Mean 99 05/20/24 16:01 Pulse Oximetry 96 05/20/24 16:01 Allergies morphine Allergy (Verified 03/02/24 11:50) vomit exenatide (From [place]) Adverse Reaction (Intermediate, Verified 03/02/24 11:50) gi upset WICKED STOMACH CRAMPS, VOMITING Diet Orders Category Date Time Status Heart Healthy Eating [DIET] Nutrition 05/21/24 Dinner Ordered Diagnostics 05/20/24 05/20/24 05/20/24 Range/Units 17:33 17:32 17:09 WBC Cancelled (4.4-10.8) 10^3/uL RBC Cancelled (3.93-5.22) 10^6/uL Hgb Cancelled (11.2-15.7) g/dL Hct Cancelled (36.0-46.0) % MCV Cancelled (80-95) fL MCH Cancelled (27.0-33.0) pg MCHC Cancelled (32.0-36.0) % RDW Cancelled (11.7-14.6) % Plt Count Cancelled (130-400) 10^3/uL MPV Cancelled (8.0-11.0) fL Immature Gran % Cancelled % Neutrophils % Cancelled % Band Neutrophils % Cancelled Lymphocytes % Cancelled % Atypical Lymphs % Cancelled Monocytes % Cancelled % Eosinophils % Cancelled % Basophils % Cancelled % Metamyelocytes % Cancelled Myelocytes % Cancelled Promyelocytes % Cancelled Other Cells % Cancelled Nucleated RBC % Cancelled (0.0-0.3) % Absolute Neutrophils Cancelled (1.2-6.7) 10^3/uL Absolute Lymphocytes Cancelled (1.2-3.4) 10^3/uL Absolute Monocytes Cancelled (0.1-0.8) 10^3/uL Absolute Eosinophils Cancelled (0.0-0.7) 10^3/uL Absolute Basophils Cancelled (0.0-0.2) 10^3/uL RBC Morphology Cancelled Polychromasia Cancelled Hypochromasia Cancelled Poikilocytosis Cancelled Basophilic Stippling Cancelled Anisocytosis Cancelled Microcytosis Cancelled Macrocytosis Cancelled Spherocytes Cancelled Tear Drop Cells Cancelled Ovalocytes Cancelled Stomatocytes Cancelled [place] Bodies Cancelled Gunner Cells/Echinocytes Cancelled Acanthocytes (Spur) Cancelled Schistocytes Cancelled VBG pH (7.31-7.41) VBG pCO2 (41-51) mmHg VBG pO2 mmHg VBG HCO3 (23-28) mmol/L VBG Total CO2 (24-29) mmol/L VBG O2 Saturation % VBG Base Excess (-2-3) mmol/L Sodium (136-145) mmol/L Potassium (3.5-5.1) mmol/L Chloride (98-107) mmol/L Carbon Dioxide (21.0-32.0) mmol/L Anion Gap (3-11) mmol/L BUN (7-18) mg/dL Creatinine (0.55-1.02) mg/dL Est GFR (CKD-EPI 2020) (mL/min/1.73m2) Glucose (74-106) mg/dL Calcium (8.5-10.1) mg/dL Magnesium (1.8-2.4) mg/dL Total Bilirubin (0.2-1.0) mg/dL AST (15-37) U/L ALT (14-59) U/L Alkaline Phosphatase (46-116) U/L Troponin I 56 H* (<or=51) ng/L NT-Pro-B Natriuret Pep (<300) pg/mL Total Protein (6.4-8.2) g/dL Albumin (3.4-5.0) g/dL COVID-19 Source Pending SARS-CoV-2 (PCR) Pending Influenza Type A (PCR) Pending Influenza Type B (PCR) Pending RSV (PCR) Pending 05/20/24 05/20/24 Range/Units 15:10 13:36 WBC 9.06 (4.4-10.8) 10^3/uL RBC 4.29 (3.93-5.22) 10^6/uL Hgb 12.2 (11.2-15.7) g/dL Hct 39.9 (36.0-46.0) % MCV 93 (80-95) fL MCH 28.4 (27.0-33.0) pg MCHC 30.6 L (32.0-36.0) % RDW 14.3 (11.7-14.6) % Plt Count 241 (130-400) 10^3/uL MPV 10.6 (8.0-11.0) fL Immature Gran % 0.7 % Neutrophils % 79.2 % Band Neutrophils % Lymphocytes % 11.7 % Atypical Lymphs % Monocytes % 6.8 % Eosinophils % 0.9 % Basophils % 0.7 % Metamyelocytes % Myelocytes % Promyelocytes % Other Cells % Nucleated RBC % 0.0 (0.0-0.3) % Absolute Neutrophils 7.18 H (1.2-6.7) 10^3/uL Absolute Lymphocytes 1.06 L (1.2-3.4) 10^3/uL Absolute Monocytes 0.62 (0.1-0.8) 10^3/uL Absolute Eosinophils 0.08 (0.0-0.7) 10^3/uL Absolute Basophils 0.06 (0.0-0.2) 10^3/uL RBC Morphology Polychromasia Hypochromasia Poikilocytosis Basophilic Stippling Anisocytosis Microcytosis Macrocytosis Spherocytes Tear Drop Cells Ovalocytes Stomatocytes [place] Bodies Benjamin Cells/Echinocytes Acanthocytes (Spur) Schistocytes VBG pH 7.37 (7.31-7.41) VBG pCO2 49 (41-51) mmHg VBG pO2 40 mmHg VBG HCO3 28 (23-28) mmol/L VBG Total CO2 26 (24-29) mmol/L VBG O2 Saturation 71 % VBG Base Excess 3 (-2-3) mmol/L Sodium 139 (136-145) mmol/L Potassium 4.8 (3.5-5.1) mmol/L Chloride 103 (98-107) mmol/L Carbon Dioxide 31.8 (21.0-32.0) mmol/L Anion Gap 4.2 (3-11) mmol/L BUN 34 H (7-18) mg/dL Creatinine 1.9 H (0.55-1.02) mg/dL Est GFR (CKD-EPI 2020) 27.20 (mL/min/1.73m2) Glucose 225 H (74-106) mg/dL Calcium 9.8 (8.5-10.1) mg/dL Magnesium 2.4 (1.8-2.4) mg/dL Total Bilirubin 0.38 (0.2-1.0) mg/dL AST 12 L (15-37) U/L ALT 15 (14-59) U/L Alkaline Phosphatase 110 (46-116) U/L Troponin I 42 25 (<or=51) ng/L NT-Pro-B Natriuret Pep 6288 H (<300) pg/mL Total Protein 7.7 (6.4-8.2) g/dL Albumin 3.8 (3.4-5.0) g/dL COVID-19 Source SARS-CoV-2 (PCR) Influenza Type A (PCR) Influenza Type B (PCR) RSV (PCR) Intake and Output - 24 Hour Total 05/20/24 13:12 thru 05/20/24 17:48 Output Total 600 Balance -600 Weight 134.989 kg Output: Urine 600 Falls Risk Assessment History of Falls Previous History 05/20/24 13:59 Contributing Factors Unstable,Impairments 05/20/24 13:59 Ambulatory Aids Uses ambulatory device + 05/20/24 13:59 Gait Evaluation W/any additional score 05/20/24 13:59 Cognition No cognitive impairment 05/20/24 13:59 Fall Total Score 71 05/20/24 13:59 Level of Risk High Risk 05/20/24 13:59 v v v v v v v v v Sending and/or Receiving Nurses: Please use comment section below to note any information pertinent to the patient hand-off not included above. Information / Comments: Report received from: Bobbi at 18:08
[2024-05-20 18:19] LABS: COVID-19 PCR Negative (Negative); Influenza A PCR Negative (Negative); Influenza B PCR Negative (Negative); RSV PCR Negative (Negative)
[2024-05-20 18:20] LABS: Source Nasopharynx
[2024-05-20] MEDS: Enoxaparin 40 MG/0.4 ML SYR SC (19:44)
[2024-05-20] MEDS: Normal Saline Flush 10 ML SYR IVP (19:45)
[2024-05-20] MEDS: Budesonide/Formoterol 160/4.5 6 GM 60 PUFF INH IH (22:13)
[2024-05-21] VITALS (7 sets, daily range): BP systolic 118–147; BP diastolic 51–91; PULSE 50–82; RESP 16–20; TEMP 36.4–36.9; O2SAT 94–100
[2024-05-21 06:57] LABS: Abs Immature Grans 0.04 10^3/uL (0.0-0.06); Absolute Basophil Count 0.06 10^3/uL (0.0-0.2); Absolute Lymphocyte Count 0.91 10^3/uL (1.2-3.4); Absolute Monocyte Count 0.59 10^3/uL (0.1-0.8); Absolute Neutrophil Count 5.95 10^3/uL (1.2-6.7); Basophils % 0.8 %; Eosinophils % 1.3 %; HCT 38.8 % (36.0-46.0); HGB 11.8 g/dL (11.2-15.7); Immature Grans % 0.5 %; Lymphocytes % 11.9 %; MCHC 30.4 % (32.0-36.0); MCV 92 fL (80-95); MPV 10.8 fL (8.0-11.0); Monocytes % 7.7 %; Neutrophils % 77.8 %; Platelet Count 239 10^3/uL (130-400); RBC 4.22 10^6/uL (3.93-5.22); RDW 14.5 % (11.7-14.6); RDW-SD 48.4 fL; WBC 7.65 10^3/uL (4.4-10.8)
[2024-05-21 07:19] LABS: ALT 14 U/L (14-59); AST 14 U/L (15-37); Albumin 3.4 g/dL (3.4-5.0); Alkaline Phosphatase 97 U/L (46-116); Anion Gap 4.6 mmol/L (3-11); BUN 34 mg/dL (7-18); Bilirubin, Total 0.54 mg/dL (0.2-1.0); CO2 33.4 mmol/L (21.0-32.0); CREATININE 1.8 mg/dL (0.55-1.02); Calcium 9.6 mg/dL (8.5-10.1); Chloride 102 mmol/L (98-107); Estimated GFR 29.02 (mL/min/1.73m2); Glucose 148 mg/dL (74-106); Magnesium 2.1 mg/dL (1.8-2.4); Potassium 4.7 mmol/L (3.5-5.1); Sodium 140 mmol/L (136-145); Total Protein 7.4 g/dL (6.4-8.2)
[2024-05-21] MEDS: hydroCHLOROthiazide 12.5 MG TAB PO (08:12)
[2024-05-21] MEDS: Lisinopril 10 MG TAB PO (08:12)
[2024-05-21] MEDS: Aspirin E.C. 81 MG TABEC PO (08:13)
[2024-05-21] MEDS: Lisinopril 5 MG TAB PO (08:13)
[2024-05-21] MEDS: Furosemide 20 MG TAB PO (08:13)
[2024-05-21] MEDS: Cholecalciferol (Vitamin D3) 1,000 UNIT TAB 1000 UNITS PO (08:13)
[2024-05-21] MEDS: Magnesium Oxide 400 MG TAB PO (08:13)
[2024-05-21] MEDS: Cyanocobalamin 500 MCG TAB 1000 MCG PO (08:13)
[2024-05-21] MEDS: Normal Saline Flush 10 ML SYR IVP ×3 (08:14→20:36)
[2024-05-21] MEDS: Budesonide/Formoterol 160/4.5 6 GM 60 PUFF INH IH ×2 (08:23→20:37)
[2024-05-21] MEDS: Tiotropium Bromide-Respimat 10 PUFF INH 2 PUFF IH (08:24)
--- NOTE | 2024-05-21 08:27 | RESPIRATORY ---
Pt's baseline is 2L. DME [facility].
[2024-05-21] MEDS: Insulin Aspart 300 UNITS/3 ML PEN SC ×3 (08:31→17:14)
--- NOTE | 2024-05-21 08:52 | INITIAL_ITS ---
Date of service: 05/21/24 Time of Service: 08:52 Care Management Initial Assmt Initial Assessment Reason for Hospitalization: respiratory failure CHF Functional Status/Living Situation Patient Presentation: Pennie was sitting up in bed when CM met with her. She was very pleasant and engaged easily with CM. Pennie discussed her concerns about her future and the future of her disabled son Dyllan. Dyllan lives with Pennie and she provides his care. He has mental health issues and at times can be challenging. Pennie realizes when she is gone, her sons will not be able to afford to keep their ho me. Her older son Jamie would not be able to care for him and Dyllan refuses to consider a facility such as [facility]. CM discussed various options such as assisted living and AF homes. Pennie had a similar conversation with her CM when she was hospitalized in and a referral was sent to [facility]. CM will reach out to see if Pennie was able to follow up and enlist the support of the agency. Pennie lives in a single family home in [place] with Dyllan. She worked in [employer] but is now retired. She is independent at baseline and does not receive any community services. Pennie was admitted with probable CHF. She informed CM that she has never been formally diagnosed with CHF but takes Lasix at home since her December admission. Her BNP was over 6000 and she had a nutrition consult this afternoon to discuss dietary restrictions. Town of Residence: [place], [place] Resides with: Child (disabled son Dyllan live with her) Significant Other/Family: Out of area Employment Status: Retired Instrumental Activities of Daily Living (ADLs): Independent Medications Medication Management: No Issues/Barriers identified Physical Functioning/Mobility Assistive Device: walker and scooter Advance Directives Advance Directives: Do you have an Advance Directive: N 07/09/12 00:39 AD On File at [facility]: N 06/20/12 10:12 Date Asked 05/20/24 05/20/24 14:40 AD Date Reviewed COLST On File at [facility] COLST Date Scanned Code Status Resuscitation Status Full Code Insurance Coverage/Financial Issues Insurance: Medicare / Federal Care Team Visit Care Team Role Provider Type Unknown Unknown Primary Care Provider STAFF PHYSICIAN Kelsey Bills RDN, [facility] Other Providers VALUE STREAM COACH Marissa Metzger Other Providers VALUE STREAM COACH Silviano Woo RDN Other Providers VALUE STREAM COACH Allison Du MD Emergency Provider [facility] STAFF PHYSICIAN Chris Duffy MD Admit Provider [facility] STAFF PHYSICIAN Attending Provider Discharge Potential Discharge Needs: PCP F/U Appt Anticipated Barriers to Discharge: None Identified Patient/Family Education Needs: Review discharge instructions, discuss Ask Me Three Transportation: Private vehicle Plan: Anticipate Pennie will be discharged home with no new services, when medically cleared. She will follow up with her PCP and plan of care and transport with family. CM will follow and continue to assess for discharge planning concerns. Social Determinants of Health Screening Social Determinants of Health last assessed: 05/21/24 Will the Patient Participate in the Screening?: Yes Do you worry about having a steady place to live?: no Problems where you live: pests such as bugs, ants or mice and lead paints of pipes In the past 12 months, have you had to go without electric, gas, oil or water in your home?: no Have you or anyone in your house had to go without enough food to eat?: no Has lack of transportation kept you from medical appointments or from doing things needed for daily living?: yes Has anyone in your life made you feel unsafe or unsupported?: no How hard is it for you to pay for the very basics like food, housing, medical care, and heating? Would you say it is:: Not hard at all Do you want help finding or keeping work or a job?: I do not need or want help If for any reason you need help with day-to-day activities such as bathing, preparing meals, shopping, managing finances, etc., do you get the help you need?: I get all the help I need How often do you feel lonely or isolated from those around you?: Rarely Do you speak a language other than Lithuanian at home?: No Does the patient want assistance with any of the above?: No Social Determinants of Health Comments([facility] Details): has RCT, lives with son who has schizophrenia Health Related Social Needs Health related social needs: inadequate housing (Z59.1), transportation insecurity (Z59.82) and feeling lonely/isolated (Z60.8) PFSH All Active Problems (Updated 05/20/24 @ 16:59 by Allison Du MD) Acute exacerbation of CHF (congestive heart failure) (Acute) Cor pulmonale, chronic (Acute) CKD (chronic kidney disease) stage 4, GFR 15-29 ml/min (Acute) Fall 2023 LUANN Anemia (Chronic) CHF (congestive heart failure) (Chronic) Respiratory failure (Acute) Acute and chronic respiratory failure with hypoxia (Acute) Ventricular trigeminy (Acute) Driving safety issue (Acute) When vertigo is active (she will need RCT as she cannot drive with active ve rtigo.) >> grounded when vertigo is active.. Vertigo (Acute) Per ER report in [place] Hypertrophic toenail (Acute) Does anyone make HV? [ ] Podiatry PRN Xeroderma (Acute) Hemoglobin A1c above reference range (Acute) Nocturnal polyuria (Acute) Postmenopausal estrogen deficiency (Chronic) Requesting DEXA scan At risk for osteoporosis (Acute) Hx smoking, PPI and prednisone use. Chronic obstructive lung disease (Acute 02/20/02) FEV1 0.98 (34%PRED, 58% FVC) FOLLOWING Left PNEUMONECTOMY; home O2 since lung surg 2003 Secondary anemia (Acute 01/20/05) Mild improvement, 08/2021 (11.9) .. Hx: due to chemotherapy; [place] [facility] [place] [facility] [place]; also due to CKD Chronic kidney disease (Acute) stage 3. [facility] [place] Denilson Rendon MD 05/19/18 Decreased stamina (Acute) Fatigue (Acute) Caregiver stress (Chronic) Son @ home, Psych Disorder affecting ADL, including worsening paranoia. Skin lesion of breast (Acute) Appears as shira kerat .. Actinic keratosis (Acute) 10/06/20 destruction of lesion, left cheek, left nasal lip, right paranasal, right nasal bridge Diabetes mellitus (Chronic) dx 06/2003, co-managed ; goal A1c <7.5; [place] labs [place] [facility] [place] Confusing mix of meds with recent changes 2' Cr levels being affected. Appreciate re-eval, along with diet review by Latoya! 12/13/17 ik Met with Ne[place]ro [place] [place] glad of no microhematuria .. meds and diet reviewed, trialing mild changes, d/c glimepuride. Diabetes mellitus type 2, uncontrolled (Acute 04/09/17) dx 06/2003, co-managed ; goal A1c <7.5; [place] labs [place] [facility] [place] Type 2 diabetes mellitus with stage 3 chronic kidney disease, with long-term current use of insulin (Acute) [facility] [place], goal A1c < 7.5 .. 6.8 today (June 2017)! .. down from 8/7.6/8.2 in 2017. Cr 1.42 03/2017, 1.65 (07/17/17). Apr 2017 [facility] [place]o note mentions Nephro referral, placing per 07/17/16 lab results. Stressful life events affecting family and household (Acute) Counseling on health promotion and disease prevention (Acute) Asthma (Acute 05/15/11) Oxygen desaturation (Chronic 03/2004) Family history of colon cancer (Acute 05/15/11) Stasis dermatitis (Acute 05/12/02) Hx of pneumonectomy (Chronic 03/2004) Left lung removed, sent home with oxygen Vitamin D deficiency (Acute 12/26/10) Osteoarthritis (Acute 01/12/10) mild R hip on x-ray/clinical Obesity (Acute 05/12/02) Good weight loss, 290 today .. down from 311 last year. Hyperlipidemia (Acute 08/21/03) Gastroesophageal reflux disease (Acute 05/19/05) CHRONIC PRILOSEC OTC Essential hypertension (Chronic 09/14/03) Hx elevatd DBP, but she monitors closely. Meds tolerated. Low, but asympto, BP today, 01/29/18. Low normal/baseline, 07/2018. ik Medical History (Updated 05/20/24 @ 16:59 by Allison Du MD) Lung cancer Adenocarcinoma of lung (03/22/04) Smoker (05/15/11) QUIT? Renal insufficiency (2017) Seeing Nephro; improved. Surgical History (Updated 05/20/24 @ 16:59 by Allison Du MD) pneumonectomy (04/20/04) [place] [facility] [place]onsillectomy and adenoidectomy (03/02/10) Extraction of cataract (~01/2015) [facility] [place] Family History Mother , stroke, pneumonia at age 82. Personal history of malignant neoplasm Father , suicide at age 75. No problems noted. Sister Age: 72 No problems noted. Brother , bowel obstruction at age 46. No problems noted. Social History Smoking/Tobacco Use Status: Former Tobacco Use Smoking risk assessment performed?: Yes Alcohol Intake: former Year quit: 1990 Drug use: Never Substance use type: does not use Household members: children Housing: house Number of Children: 2 number of grandchildren: 1 Communication Needs: None What is your relationship status?: Panel score (0-1 are the most socially isolated patients): 0 What type of physical activity do you participate in: none Seatbelt use: always Drive intox or ride w/intox peg driver: No Working smoke detector in home: Yes Carbon monox detector in home: Yes Do you feel safe at home: Yes Do you feel safe in your relationship?: Yes
--- NOTE | 2024-05-21 09:50 | W.PM.PROGNOT ---
Date of Service Date of service: 05/21/24 Time of Service: 09:50 Assessment and Plan Assessment and plan (1) Acute and chronic respiratory failure with hypoxia: Status: Acute Assessment and plan: Increased need of oxygen supplementation over the past 2 weeks Imaging shows no evidence of PE or pneumonia, History of CHF with LVEF in December 2023; presenting with elevated BNP 6288 similar to presentation in December 2023 Will continue IV Lasix -received 1 dose in the ED with improvement ACS most unlikely as troponin were negative History of lung cancer with left pneumonectomy and does have limited lung capacity with COPD. Continue nebulizer treatment Limited echocardiogram completed with the following results: Conclusion Technically difficult study Borderline dilated left ventricle. Ejection fraction is 55%. There are no segmental wall motion abnormalities. Diastolic septal flattening consistent with right ventricular pressure overload Dilated right ventricle. Somewhat paradoxic septal motion suggests right ventricular volume overload Mildly dilated left atrium. Moderately dilated right atrium There are no structural valvular abnormalities Estimated right ventricular systolic pressure is 78 mmHg Will continue IV diuresis and transition to increased oral dose upon d/c (2) Acute exacerbation of CHF (congestive heart failure): Status: Acute Assessment and plan: as above (3) Ventricular trigeminy: Status: Acute Assessment and plan: Continue telemetry- SA HR 86- w PVC's no S&S of ACS continue IV diuresis (4) Chronic kidney disease: Status: Acute Assessment and plan: Continue to monitor BMP in AM (5) Diabetes mellitus: Status: Chronic Assessment and plan: Continue glucose before meals and at bedtime with sliding scale coverage and bolus insulin Continue oral Tradjenta will be continued. Continue to hold glimepiride (6) Adenocarcinoma of lung: Assessment and plan: Ongoing outpatient follow-up status post resection (7) Essential hypertension: Status: Chronic Assessment and plan: Continue outpatient home medicine regimen Cardiac consult in the setting of a dilated RV and RVSP of 78 now from 64 mmHg in 12/2023 for new medicine recommendation Subjective Subjective Patient reports: no new complaints, feels better, tolerating liquids well, tolerating a regular diet, voiding w/o difficulty and shortness of breath (improved); denies nausea, vomiting or fever Exam Const General: cooperative and no acute distress Orientation: alert, awake and oriented x3 HENMT Head: normal to inspection, normocephalic and atraumatic Neck Neck: JVD (minimal) Chest Chest: normal inspection of the chest Resp Effort & Inspection: normal respiratory effort Auscultation: diminished lung sounds bilaterally in the lower lung reyes Cardio Rate: regular rate Rhythm: other (SR w PVC's on tele) Heart Sounds: no murmurs GI Inspection: normal to inspection Palpation: soft and nontender Auscultation: normal bowel sounds Skin General skin exam: no rashes or lesions noted Neuro General: patient alert and patient oriented x3 Extrem Left lower extremity: edema (trace), lower leg (healing blisters noticed- previously leaking serous fluid as per patient) and ankle (slight erythema) Psych Appearance: grossly normal Mental Status: mental status grossly normal and other (Tearful at times when discussing stressors related to her son) Speech and Movement: speech and movement normal Mood: congruent mood and other (Tearful at times when discussing stressors related to her son) Affect: normal affect Attitude: cooperative Thought Process: normal Thought Content: normal Insight: insight good Judgment: judgment good Objective Last Vital Signs Temp 36.5 C 05/21/24 07:13 Pulse 74 05/21/24 07:13 Resp 19 05/21/24 07:13 BP 121/70 05/21/24 07:13 Pulse Ox 100 05/21/24 08:24 Laboratory Results - last 24 hr 05/20/24 05/20/24 05/20/24 13:36 15:10 17:09 WBC 9.06 RBC 4.29 Hgb 12.2 Hct 39.9 MCV 93 MCH 28.4 MCHC 30.6 L RDW 14.3 Plt Count 241 MPV 10.6 Immature Gran % 0.7 Neutrophils % 79.2 Band Neutrophils % Lymphocytes % 11.7 Atypical Lymphs % Monocytes % 6.8 Eosinophils % 0.9 Basophils % 0.7 Metamyelocytes % Myelocytes % Promyelocytes % Other Cells % Nucleated RBC % 0.0 Absolute Neutrophils 7.18 H Absolute Lymphocytes 1.06 L Absolute Monocytes 0.62 Absolute Eosinophils 0.08 Absolute Basophils 0.06 RBC Morphology Polychromasia Hypochromasia Poikilocytosis Basophilic Stippling Anisocytosis Microcytosis Macrocytosis Spherocytes Tear Drop Cells Ovalocytes Stomatocytes [place] Bodies [place] Cells/Echinocytes Acanthocytes (Spur) Schistocytes VBG pH 7.37 VBG pCO2 49 VBG pO2 40 VBG HCO3 28 VBG Total CO2 26 VBG O2 Saturation 71 VBG Base Excess 3 Sodium 139 Potassium 4.8 Chloride 103 Carbon Dioxide 31.8 Anion Gap 4.2 BUN 34 H Creatinine 1.9 H Est GFR (CKD-EPI 2020) 27.20 Glucose 225 H Calcium 9.8 Magnesium 2.4 Total Bilirubin 0.38 AST 12 L ALT 15 Alkaline Phosphatase 110 Troponin I 25 42 56 H* NT-Pro-B Natriuret Pep 6288 H Total Protein 7.7 Albumin 3.8 COVID-19 Source SARS-CoV-2 (PCR) Influenza Type A (PCR) Influenza Type B (PCR) RSV (PCR) 05/20/24 05/20/24 05/21/24 17:32 17:33 06:30 WBC Cancelled 7.65 RBC Cancelled 4.22 Hgb Cancelled 11.8 Hct Cancelled 38.8 MCV Cancelled 92 MCH Cancelled 28.0 MCHC Cancelled 30.4 L RDW Cancelled 14.5 Plt Count Cancelled 239 MPV Cancelled 10.8 Immature Gran % Cancelled 0.5 Neutrophils % Cancelled 77.8 Band Neutrophils % Cancelled Lymphocytes % Cancelled 11.9 Atypical Lymphs % Cancelled Monocytes % Cancelled 7.7 Eosinophils % Cancelled 1.3 Basophils % Cancelled 0.8 Metamyelocytes % Cancelled Myelocytes % Cancelled Promyelocytes % Cancelled Other Cells % Cancelled Nucleated RBC % Cancelled 0.0 Absolute Neutrophils Cancelled 5.95 Absolute Lymphocytes Cancelled 0.91 L Absolute Monocytes Cancelled 0.59 Absolute Eosinophils Cancelled 0.10 Absolute Basophils Cancelled 0.06 RBC Morphology Cancelled Polychromasia Cancelled Hypochromasia Cancelled Poikilocytosis Cancelled Basophilic Stippling Cancelled Anisocytosis Cancelled Microcytosis Cancelled Macrocytosis Cancelled Spherocytes Cancelled Tear Drop Cells Cancelled Ovalocytes Cancelled Stomatocytes Cancelled [place] Bodies Cancelled [place] Cells/Echinocytes Cancelled Acanthocytes (Spur) Cancelled Schistocytes Cancelled VBG pH VBG pCO2 VBG pO2 VBG HCO3 VBG Total CO2 VBG O2 Saturation VBG Base Excess Sodium 140 Potassium 4.7 Chloride 102 Carbon Dioxide 33.4 H Anion Gap 4.6 BUN 34 H Creatinine 1.8 H Est GFR (CKD-EPI 2020) 29.02 Glucose 148 H Calcium 9.6 Magnesium 2.1 Total Bilirubin 0.54 AST 14 L ALT 14 Alkaline Phosphatase 97 Troponin I NT-Pro-B Natriuret Pep Total Protein 7.4 Albumin 3.4 COVID-19 Source Nasopharynx SARS-CoV-2 (PCR) Negative Influenza Type A (PCR) Negative Influenza Type B (PCR) Negative RSV (PCR) Negative Time Spent with Patient Time Spent with Patient: >50 minutes Time was spent: preparing to see the patient(eg.review tests), obtaining and/or reviewing separately otained hiistory, ordering medications,tests, procedures, referring, communicating with other health health care social worker, indepentently interpreting results, counseling the patient and care coordination
[2024-05-21] MEDS: Furosemide 20 MG/2 ML VIAL IVP ×2 (11:15→16:35)
[2024-05-21] MEDS: Acetaminophen 325 MG TAB PO (11:24)
--- NOTE | 2024-05-21 13:30 | DI.US_ITS ---
APPROVED REPORT EXAM: Comprehensive 2D, Doppler, and color-flow Echocardiogram Patient Location: In-Patient Room/Bed: 216 Cl[address] Bin Packer: Nicolás Gasca RDCS (AE) Indications: CHF Other Information Technically limited study due to body habitus. Conclusion Technically difficult study Borderline dilated left ventricle. Ejection fraction is 55%. There are no segmental wall motion abn ormalities. Diastolic septal flattening consistent with right ventricular pressure overload Dilated right ventricle. Somewhat paradoxic septal motion suggests right ventricular volume overload Mildly dilated left atrium. Moderately dilated right atrium There are no structural valvular abnormalities Estimated right ventricular systolic pressure is 78 mmHg Wall motion Left Ventricle Left ventricle is borderline dilated. Overall normal left ventricular function There is normal left v entricular wall thickness. There is global hypokinesis of the left ventricle. Flattened septum consis tent with right ventricular volume overload. LVEF is 55%. Right Ventricle Right ventricle is moderately dilated. Right ventricle is mildly hypokinetic. Atria Left atrium is mildly dilated. Right atrium is moderately dilated. The atrial septum is aneurysmal. Tricuspid Valve The tricuspid valve is normal in structure. Mild to moderate tricuspid regurgitation. The RVSP is 78. 6 mmHg. Great Vessels The IVC collapses <50% with inspiration. 2D Dimensions IVSD d PLAX 0.73 cm F: 0.6-1.0 LVPW d PLAX 0.69 cm F: 0.6 - 1.0 LVID d PLAX 5.15 cm F: 3.8 - 5.2 LVDs 4.04 cm F: 2.2 - 3.5 LV EF Teichholz 43.3 % FS 21.49 % LV EDV (Teich) 126.7 mL LV ESV (Teich) 71.9 mL Stroke Vol Index (Teich) 24.16 Auto EF LV EDV A4C 145.5 mL LV EDV A2C 137.6 mL LV EDV BP 142.6 mL LV ESV A4C 80.5 mL LV ESV A2C 78.8 mL LV ESV BP 83.0 mL LVEF(%) A4C 44.7 % LVEF(%) A2C 42.7 % LVEF(%) BP 41.7 % LV SV A4C 65.0 ml LV SV A2C 58.8 ml LV SV BP 59.5 ml LV CO A4C 5.9 L/min LV CO A2C 5.3 L/min LV CO BP 5.6 L/min HR A4C 91.15 BPM HR A2C 89.78 BPM LV EDV Index (BP) LA Volume LA Length A4C 4.8 cm LA Length A2C 5.7 cm LA Area A4C s 15.81 cm2 LA Area A2C s 14.64 cm2 LA Vol A4C A-L 44.47 mL LA Vol A2C A-L 31.92 mL LA Vol Biplane A-L 41.2 mL LA Vol/BSA A4C A-L LA Vol/BSA A2C A-L LA Vol/BSA BP A-L 18.1 mL/m2 LA Vol A4C MOD 37.8 mL LA Vol A2C MOD 31.0 mL LA Vol BP MOD 36.9 mL RA Volume RA Area A4C 16.8 cm2 RA ESV A4C (A-L) 54.5mL RA Vol/BSA A4C A-L RA Length A4C 4.4 cm RA ESV A4C (MOD) 52.5mL Tricuspid Valve RA Pressure 8.00 mmHg TR Vmax 4.20 m/s TR Peak Grad 70.6 mmHg RVSP (TR) 78.6 mmHg
--- NOTE | 2024-05-21 15:13 | W.INDIABCONS ---
Date of service: 05/21/24 Time of Service: 11:00 Diabetes Inpatient Consult Reason for Visit: consult - diabetes mgt/education DESCRIPTION/ASSESSMENT: Pennie admitted with CHF exac. Has hx of CKD 4 with GFR at 21 today a1c last january was 8.4% at home takes statin and glimepiride as well as insulin Spent time going over some nutrition recommendations And pennie interested in getting together in outpatient setting for further work in trying to get her glucose closer to target of <8% PLAN: will follow up with phone call to pennie after d/c to offer appt with referral from provider. pennie also took my contact info to contact to set up visits or get any questions anwered. Time Spent in Nutritional Counseling and Treatment: 10 min
[2024-05-21] MEDS: Insulin Glargine 300 UNITS/3 ML PEN 26 UNITS SC (20:33)
[2024-05-21] MEDS: Enoxaparin 40 MG/0.4 ML SYR SC (20:36)
[2024-05-21] MEDS: Nystatin OINT 15 GM TUBE TP (20:37)
[2024-05-22 03:20] VITALS: BP 143/70; PULSE 88; RESP 17; TEMP 36.4; O2SAT 95
[2024-05-22 06:37] LABS: Abs Immature Grans 0.03 10^3/uL (0.0-0.06); Absolute Basophil Count 0.05 10^3/uL (0.0-0.2); Absolute Eosinophil Count 0.13 10^3/uL (0.0-0.7); Absolute Lymphocyte Count 0.99 10^3/uL (1.2-3.4); Absolute Monocyte Count 0.72 10^3/uL (0.1-0.8); Absolute Neutrophil Count 5.51 10^3/uL (1.2-6.7); Basophils % 0.7 %; Eosinophils % 1.7 %; HGB 11.8 g/dL (11.2-15.7); Immature Grans % 0.4 %; Lymphocytes % 13.3 %; MCH 28.4 pg (27.0-33.0); MCHC 31.1 % (32.0-36.0); MCV 92 fL (80-95); MPV 10.8 fL (8.0-11.0); Monocytes % 9.7 %; Neutrophils % 74.2 %; Platelet Count 224 10^3/uL (130-400); RBC 4.15 10^6/uL (3.93-5.22); RDW 14.2 % (11.7-14.6); RDW-SD 48.1 fL; WBC 7.43 10^3/uL (4.4-10.8)
[2024-05-22 06:57] LABS: Anion Gap 7.9 mmol/L (3-11); BUN 52 mg/dL (7-18); CO2 30.1 mmol/L (21.0-32.0); CREATININE 2.3 mg/dL (0.55-1.02); Calcium 9.9 mg/dL (8.5-10.1); Chloride 103 mmol/L (98-107); Estimated GFR 21.62 (mL/min/1.73m2); Glucose 160 mg/dL (74-106); Magnesium 2.4 mg/dL (1.8-2.4); Potassium 4.8 mmol/L (3.5-5.1); Sodium 141 mmol/L (136-145)
[2024-05-22] MEDS: Budesonide/Formoterol 160/4.5 6 GM 60 PUFF INH IH (07:49)
[2024-05-22] MEDS: Tiotropium Bromide-Respimat 10 PUFF INH 2 PUFF IH (07:49)
[2024-05-22 07:50] VITALS: BP 142/76; PULSE 83; RESP 20; TEMP 36.4; O2SAT 94; O2SAT 96
--- NOTE | 2024-05-22 07:52 | RESPIRATORY ---
Pt uses 2L O2 at baseline for sleep and ambulation. DME:
[2024-05-22] MEDS: Insulin Aspart 300 UNITS/3 ML PEN SC ×2 (09:14→12:29)
[2024-05-22] MEDS: Cholecalciferol (Vitamin D3) 1,000 UNIT TAB 1000 UNITS PO (09:16)
[2024-05-22] MEDS: Enoxaparin 40 MG/0.4 ML SYR SC (09:16)
[2024-05-22] MEDS: Lisinopril 5 MG TAB PO (09:16)
[2024-05-22] MEDS: Cyanocobalamin 500 MCG TAB 1000 MCG PO (09:16)
[2024-05-22] MEDS: hydroCHLOROthiazide 12.5 MG TAB PO (09:17)
[2024-05-22] MEDS: Aspirin E.C. 81 MG TABEC PO (09:17)
[2024-05-22] MEDS: Lisinopril 10 MG TAB PO (09:17)
[2024-05-22] MEDS: Nystatin OINT 15 GM TUBE TP (09:17)
[2024-05-22] MEDS: Magnesium Oxide 400 MG TAB PO (09:17)
[2024-05-22] MEDS: Normal Saline Flush 10 ML SYR IVP (09:18)
--- NOTE | 2024-05-22 11:20 | PDOC.CMPRO ---
Date of service: 05/22/24 Time of Service: 11:20 Care Management Progress Note Discharge Potential Discharge Needs: PCP F/U Appt Anticipated Barriers to Discharge: None Identified Patient/Family Education Needs: Review discharge instructions, discuss Ask Me Three Transportation: Private vehicle Plan: Anticipate Pennie will be discharged home with no new services, when medically cleared. She will follow up with her PCP and plan of care and transport with family. CM will follow and continue to assess for discharge planning concerns. Social Determinants of Health Screening Social Determinants of Health last assessed: 05/22/24 Will the Patient Participate in the Screening?: Yes Do you worry about having a steady place to live?: no Problems where you live: pests such as bugs, ants or mice and lead paints of pipes In the past 12 months, have you had to go without electric, gas, oil or water in your home?: no Have you or anyone in your house had to go without enough food to eat?: no Has lack of transportation kept you from medical appointments or from doing things needed for daily living?: yes Has anyone in your life made you feel unsafe or unsupported?: no How hard is it for you to pay for the very basics like food, housing, medical care, and heating? Would you say it is:: Not hard at all Do you want help finding or keeping work or a job?: I do not need or want help If for any reason you need help with day-to-day activities such as bathing, preparing meals, shopping, managing finances, etc., do you get the help you need?: I get all the help I need How often do you feel lonely or isolated from those around you?: Rarely Do you speak a language other than Guyanese at home?: No Does the patient want assistance with any of the above?: No Social Determinants of Health Comments(SDOR Details): has RCT, lives with son who has schizophrenia Health Related Social Needs Health related social needs: inadequate housing (Z59.1), transportation insecurity (Z59.82) and feeling lonely/isolated (Z60.8)
--- NOTE | 2024-05-22 11:21 | CMDISCH_ITS ---
Date of service: 05/22/24 Time of Service: 11:21 LACE Index Scoring Tool Questions: Length of Stay (in days): 1 Was the patient admitted via the E.D.?: Yes Comorbidities: Congestive Heart Failure, Chronic Pulmonary Disease, Any Tumor and Liver or Renal Disease E.D. Visits: 2 Answers: Total Score: 11 Risk of Readmission: High Risk Care Management Discharge Plan Reason for Hospitalization: CHF Discharge Plan: Pennie will be discharged home with no new services. She will follow up with her PCP and plan of care and transport with family. 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
[2024-05-22 11:37] VITALS: BP 109/63; PULSE 58; RESP 20; TEMP 36.7; O2SAT 93
--- NOTE | 2024-05-22 12:18 | W.PM.DS.N ---
Date of service: 05/22/24 Time of Service: 12:19 DS: Diagnosis Discharge Diagnosis (1) Acute and chronic respiratory failure with hypoxia: Status: Acute (2) Acute exacerbation of CHF (congestive heart failure): Status: Acute (3) Ventricular trigeminy: Status: Acute (4) Chronic kidney disease: Status: Acute (5) Diabetes mellitus: Status: Chronic (6) Adenocarcinoma of lung: (7) Essential hypertension: Status: Chronic Discharge Plan Disposition Patient Disposition: Home Condition: Improving Discharge Details Reason For Visit: Acute hypoxic respiratory failure Admit Date/Time: 05/20/24 17:28 Admit Provider: Chris Duffy Attending Provider: Chris Duffy Primary Care Provider: Unknown,Unknown Hospital Course Hospital Course: This is a 73-year-old female who presented to the ED with shortness of breath. Her workup was most consistent with heart failure exacerbation. She did undergo an echocardiogram which did show similar EF at 55% but now with increased RVSP at 78 mmHg from 64 mmHg in December 2023. She was admitted under the hospitalist services and was diuresed with IV furosemide. On presentation she was requiring oxygen above her home baseline level of 2 L nasal cannula. This was weaned back down and she was actually tolerating room air while at rest which she states she does at home. She did have a bump in her creatinine with the IV diuresis up to 2.3 but voiding without difficulty. Also noted was slightly elevated troponin but no chest pain and no acute ischemic EKG changes thought to be due to her heart failure and chronic kidney disease. Hemodynamically she has been stable she has had no fever she is stable for discharge to home. She was advised to resume her previous medications as scheduled. She does have a follow-up appointment with pulmonology coming up in May. She should follow-up with her primary care provider for kidney function and electrolyte lab testing outpatient for further medication recommendations. Discharge to home with no new services Discussed with Dr. Duffy Home Meds and New Rx's Prescriptions: Continued (DME) Nebulizer Qty: 1 0RF Rx Instructions: As directed cholecalciferol (vitamin D3) 25 mcg (1,000 unit) capsule 25 mcg PO DAILY nystatin 100,000 unit/gram ointment 1 applic topical BID Qty: 30 1RF Rx Instructions: Apply under breasts x 1-2 weeks ammonium lactate 12 % lotion 1 applic topical BID PRN (Reason: dry flaky skin) Qty: 225 1RF Rx Instructions: Trial for legs, ankles, forearms furosemide [Lasix] 20 mg tablet 20 mg PO DAILY Qty: 90 3RF Rx Instructions: Continuing, post HOSPITALIZATION (rvw w/ CARD in February) magnesium oxide 400 mg magnesium capsule 400 mg PO DAILY Gaviscon Extra Strength 160-105 mg tablet,chewable 4 tab PO HS PRN tiotropium bromide [Spiriva with HandiHaler] 18 mcg capsule, w/inhalation device 1 cap Inhalation DAILY Qty: 90 3RF Rx Instructions: for COPD cyanocobalamin (vitamin B-12) [Vitamin B-12] 1,000 MCG tablet 1,000 mcg PO DAILY docusate sodium [Colace] 100 MG capsule 100 mg PO PRN Proctofoam HC 10 GM foam 10 gm RC PRN Qty: 1 Rx Instructions: as needed for hemorrhoidal inflammation aspirin [Aspir-81] 81 MG tablet,delayed release (DR/EC) 81 mg PO DAILY (DME) Oxygen Tank See Dose Instructions .ROUTE .MEDSUPPLY Qty: 1 Rx Instructions: 2 L as directed (DME) pen needle, diabetic [Comfort EZ Pen [place]] 31 gauge x 5/16 needle See Dose Instructions .ROUTE .MEDSUPPLY Qty: 300 3RF Dose Instruction: As directed Rx Instructions: TID fluticasone propionate 50 mcg/actuation spray,suspension 2 spray NS DAILY PRN (Reason: nasal congestion) Qty: 16 1RF (DME) lancets [OneTouch Delica Lancets] 33 gauge misc 1 ea Miscellaneous QID Qty: 360 3RF Rx Instructions: Lancets needed to test glucose to maintain A1C less than 7. Dx code E11.9 ik (DME) OneTouch Ultra Test Strip 1 ea Miscellaneous QID Qty: 360 3RF Rx Instructions: For DM E11.9 to maintain A1C less than 7 atorvastatin 40 mg tablet See Rx Instructions .ROUTE .COMPLEX Qty: 90 3RF Dose Instruction: TAKE 1 TABLET DAILY TO LOWER CHOLESTEROL, REDUCE CARDIOVASCULAR RISK Rx Instructions: TAKE 1 TABLET DAILY TO LOWER CHOLESTEROL, REDUCE ARDIOVASCULAR RISK lisinopril 10 mg tablet 10 mg PO DAILY MDD 15mg Qty: 90 3RF Rx Instructions: add to 5mg for 15mg daily lisinopril 5 mg tablet 5 mg PO DAILY MDD 15mg Qty: 90 3RF Rx Instructions: Add to 10mg for 15mg daily Apidra SoloStar U-100 Insulin 100 unit/mL insulin pen See Rx Instructions subcut BID Qty: 15 3RF Rx Instructions: 4-10 U per sliding scale subcut twice a day; as directed per sliding scale, rarely for high sugar AC hydrochlorothiazide 12.5 mg tablet 12.5 mg PO DAILY Qty: 90 3RF Rx Instructions: FOR BP CONTROL UNDER 130/80 Tradjenta 5 mg tablet 5 mg PO DAILY Qty: 90 3RF fluticasone propion-salmeterol [Wixela Inhub] 100-50 mcg/dose blister with device 1 inh inhalation BID Qty: 180 6RF albuterol sulfate 90 mcg/actuation HFA aerosol inhaler See Rx Instructions .ROUTE .COMPLEX Qty: 25.5 3RF Dose Instruction: INHALE TWO PUFFS BY MOUTH EVERY 4 HOURS NEEDED FOR SHORTNESS OF BREATH OR WHEEZING DIRECTED FOR COPD, WHEEZING Rx Instructions: INHALE TWO PUFFS BY MOUTH EVERY 4 HOURS NEEDED FOR SHORTNESS OF BREATH OR WHEEZING DIRECTED FOR COPD, WHEEZING glimepiride 1 mg tablet 1 mg PO QAM Qty: 90 3RF famotidine 40 mg tablet 40 mg PO QHS PRN (Reason: GERD flare) Qty: 90 3RF (DME) FreeStyle Omkar 14 Day Sensor Kit See Rx Instructions .Route Qty: 6 3RF Rx Instructions: For DM, to maintain A1C < 8 ipratropium-albuterol 0.5 mg-3 mg(2.5 mg base)/3 mL solution for nebulization 3 ml IH Q6H PRN (Reason: wheezing or SOB) Qty: 90 3RF insulin degludec [Tresiba FlexTouch U-100] 100 unit/mL (3 mL) insulin pen 32 unit SC HS Discharge Instructions Instructions: Heart failure Additional Instructions: take all medication as prescribed unless directed by your doctor. you will need outpatient follow up and labs, please discuss with your doctor. Referrals: Kitty Rousseau APRN [NURSE PRACTITIONER] - Meena Man PA [PHYSICIANS PATROL OFFICER] - Activity:: Activity as Tolerated Equipment/Supplies:: No Equipment Needed Diet:: Low Sodium Discharge Orders Discharge Orders: Discharge Order (Routine); Ordered 05/22/24 Ordered By: Valentina Jose DS: Summary Time Spent with Patient providing and/or coordinating discharge services: Greater than 30 minutes Status at Discharge Functional status at discharge: independent ambulation Overall status at discharge: patient is progressing back to baseline Mental Status: mental status grossly normal Speech and Movement: speech and movement normal Mood: congruent mood Affect: normal affect Quality:SDOH Health Related Social Needs: Health related social needs inadequate housing (Z59.1), transportation insecurity (Z59.82), feeling lonely/isolated (Z60.8) Health related social needs details Pennie 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 Exam Const General: cooperative and no acute distress Orientation: alert, awake and oriented x3 HENMT Head: normal to inspection, normocephalic and atraumatic Chest Chest: normal inspection of the chest Resp Effort & Inspection: normal respiratory effort Auscultation: diminished lung sounds bilaterally in the lower lung reyes Cardio Rate: regular rate GI Inspection: normal to inspection Palpation: soft and nontender Auscultation: normal bowel sounds Skin General skin exam: no rashes or lesions noted Neuro General: patient alert and patient oriented x3 Extrem Left lower extremity: edema (trace) Psych Appearance: grossly normal Mental Status: mental status grossly normal Speech and Movement: speech and movement normal Mood: congruent mood Affect: normal affect Attitude: cooperative Thought Process: normal Thought Content: normal Insight: insight good Judgment: judgment good DS: Data Vitals/I&O Vitals and I&O: Vital Signs Temperature 36.7 C 05/22/24 11:37 Temperature Source Temporal Artery Scan 05/22/24 11:37 Pulse 58 L 05/22/24 11:37 Pulse Rhythm Irregular 05/20/24 18:48 Pulse 86 05/20/24 18:10 Respiratory Rate 20 05/22/24 11:37 Respiratory Effort Normal 05/20/24 18:48 Respiratory Depth Normal 05/20/24 18:48 Respiratory Pattern Normal 05/20/24 18:48 Blood Pressure 109/63 05/22/24 11:37 Blood Pressure Mean 96 05/20/24 17:46 Pulse Oximetry 93 05/22/24 11:37 Oxygen Delivery Method Room Air 05/22/24 11:37 Oxygen Flow Rate 0 05/22/24 11:37 Pain Level 3 05/22/24 11:37 Comment left fa 05/20/24 18:48 Intake & Output 05/21/24 05/22/24 05/22/24 23:59 11:59 23:59 Intake Total 800 / 1280 Output Total 300 / 1050 400 / 400 Balance 500 / 230 -400 / -400 Weight 128.1 kg Intake: Oral 800 / 1280 Output: Urine 300 / 1050 400 / 400 Other: Urine Color Yellow Yellow Urine Appearance Clear Clear Urine Odor Normal Normal Comment Pt voided in toilet Data Completed and Pending Labs on day of discharge: Labs from last 24 hours 05/22/24 06:10 WBC 7.43 RBC 4.15 Hgb 11.8 Hct 38.0 MCV 92 MCH 28.4 MCHC 31.1 L RDW 14.2 Plt Count 224 MPV 10.8 Immature Gran % 0.4 Neutrophils % 74.2 Lymphocytes % 13.3 Monocytes % 9.7 Eosinophils % 1.7 Basophils % 0.7 Nucleated RBC % 0.0 Absolute Neutrophils 5.51 Absolute Lymphocytes 0.99 L Absolute Monocytes 0.72 Absolute Eosinophils 0.13 Absolute Basophils 0.05 Sodium 141 Potassium 4.8 Chloride 103 Carbon Dioxide 30.1 Anion Gap 7.9 BUN 52 H Creatinine 2.3 H Est GFR (CKD-EPI 2020) 21.62 Glucose 160 H Calcium 9.9 Magnesium 2.4 PFSH All Active Problems (Updated 05/20/24 @ 16:59 by Allison Du MD) Acute exacerbation of CHF (congestive heart failure) (Acute) Cor pulmonale, chronic (Acute) CKD (chronic kidney disease) stage 4, GFR 15-29 ml/min (Acute) Fall 2023 LUANN Anemia (Chronic) CHF (congestive heart failure) (Chronic) Respiratory failure (Acute) Acute and chronic respiratory failure with hypoxia (Acute) Ventricular trigeminy (Acute) Driving safety issue (Acute) When vertigo is active (she will need RCT as she cannot drive with active vertigo.) >> grounded when vertigo is active.. Vertigo (Acute) Per ER report in [place] Hypertrophic toenail (Acute) Does anyone make HV? [ ] Podiatry PRN Xeroderma (Acute) Hemoglobin A1c above reference range (Acute) Nocturnal polyuria (Acute) Postmenopausal estrogen deficiency (Chronic) Requesting DEXA scan At risk for osteoporosis (Acute) Hx smoking, PPI and prednisone use. Chronic obstructive lung disease (Acute 02/20/02) FEV1 0.98 (34%PRED, 58% FVC) FOLLOWING Left PNEUMONECTOMY; home O2 since lung surg 2003 Secondary anemia (Acute 01/20/05) Mild improvement, 08/2021 (11.9) .. Hx: due to chemotherapy; [place] [facility] [place] 10.[place] [facility] [place]; also due to CKD Chronic kidney disease (Acute) stage 3. [facility] [place] Denilson Rendon MD 05/19/18 Decreased stamina (Acute) Fatigue (Acute) Caregiver stress (Chronic) Son @ home, Psych Disorder affecting ADL, including worsening paranoia. Skin lesion of breast (Acute) Appears as shira kerat .. Actinic keratosis (Acute) 10/06/20 destruction of lesion, left cheek, left nasal lip, right paranasal, right nasal bridge Diabetes mellitus (Chronic) dx 06/2003, co-managed ; goal A1c <7.5; [place] labs [place] [facility] [place] Confusing mix of meds with recent changes 2' Cr levels being affected. Appreciate re-eval, along with diet review by Latoya! 12/13/17 ik Met with Nephro ([facility] [place] glad of no microhematuria .. meds and diet reviewed, trialing mild changes, d/c glimepuride. Diabetes mellitus type 2, uncontrolled (Acute 04/09/17) dx 06/2003, co-managed ; goal A1c <7.5; [place] labs [place] [facility] [place] Type 2 diabetes mellitus with stage 3 chronic kidney disease, with long-term current use of insulin (Acute) [facility] [place], goal A1c < 7.5 .. 6.8 today (June 2017)! .. down from 8/7.6/8.2 in 2017. Cr 1.42 03/2017, 1.65 (07/17/17). Apr 2017 [facility] [place]o note mentions Nephro referral, placing per 07/17/16 lab results. Stressful life events affecting family and household (Acute) Counseling on health promotion and disease prevention (Acute) Asthma (Acute 05/15/11) Oxygen desaturation (Chronic 03/2004) Family history of colon cancer (Acute 05/15/11) Stasis dermatitis (Acute 05/12/02) Hx of pneumonectomy (Chronic 03/2004) Left lung removed, sent home with oxygen Vitamin D deficiency (Acute 12/26/10) Osteoarthritis (Acute 01/12/10) mild R hip on x-ray/clinical Obesity (Acute 05/12/02) Good weight loss, 290 today .. down from 311 last year. Hyperlipidemia (Acute 08/21/03) Gastroesophageal reflux disease (Acute 05/19/05) CHRONIC PRILOSEC OTC Essential hypertension (Chronic 09/14/03) Hx elevatd DBP, but she monitors closely. Meds tolerated. Low, but asympto, BP today, 01/29/18. Low normal/baseline, 07/2018. ik Medical History (Updated 05/20/24 @ 16:59 by Allison Du MD) Lung cancer Adenocarcinoma of lung (03/22/04) Smoker (05/15/11) QUIT? Renal insufficiency (2018) Seeing Nephro; improved. Surgical History (Updated 05/20/24 @ 16:59 by Allison Du MD) pneumonectomy (04/20/04) [place] [facility] [place]onsillectomy and adenoidectomy (03/02/10) Extraction of cataract (~01/2015) [facility] [place] Family History Mother , stroke, pneumonia at age 82. Personal history of malignant neoplasm Father , suicide at age 75. No problems noted. Sister Age: 72 No problems noted. Brother , bowel obstruction at age 46. No problems noted. Social History Smoking/Tobacco Use Status: Former Tobacco Use Smoking risk assessment performed?: Yes Alcohol Intake: former Year quit: 1990 Drug use: Never Substance use type: does not use Household members: children Housing: house Number of Children: 2 number of grandchildren: 1 Communication Needs: None What is your relationship status?: Panel score (0-1 are the most socially isolated patients): 0 What type of physical activity do you participate in: none Seatbelt use: always Drive intox or ride w/intox city driver: No Working smoke detector in home: Yes Carbon monox detector in home: Yes Do you feel safe at home: Yes Do you feel safe in your relationship?: Yes Time Spent with Patient Time Spent with Patient: 45-69 minutes Time was spent: preparing to see the patient(eg.review tests), obtaining and/or reviewing separately otained hiistory, ordering medications,tests, procedures, indepentently interpreting results and counseling the patient
[2024-05-22] MEDS: Triamcinolone 0.1% CR 15 GM TUBE TP (12:30)
== END 2024-05-22 13:40 | disposition home or self-care (01) | DRG 291 ==
LOC: ER 16:59 → MS 18:28
PROVIDERS: Nurse Practitioner Acute Care; Nurse Practitioner Family; Admitting Provider Hospitalist; Emergency Provider Emergency Medicine; Visit Provider Hospitalist
DX: I13.0 Hypertensive heart and chronic kidney disease with heart failure and stage 1 through stage 4 chronic kidney disease, or unspecified chronic kidney disease (principal); J96.21 Acute and chronic respiratory failure with hypoxia; N18.4 Chronic kidney disease, stage 4 (severe); Z68.42 Body mass index [BMI] 45.0-49.9, adult; E11.22 Type 2 diabetes mellitus with diabetic chronic kidney disease; Z79.4 Long term (current) use of insulin; I50.9 Heart failure, unspecified; J44.9 Chronic obstructive pulmonary disease, unspecified; Z90.2 Acquired absence of lung [part of]; I49.3 Ventricular premature depolarization; Z85.118 Personal history of other malignant neoplasm of bronchus and lung; Z99.81 Dependence on supplemental oxygen; I27.81 Cor pulmonale (chronic); Z80.0 Family history of malignant neoplasm of digestive organs; E55.9 Vitamin D deficiency, unspecified; E78.5 Hyperlipidemia, unspecified; E66.9 Obesity, unspecified; K21.9 Gastro-esophageal reflux disease without esophagitis; Z87.891 Personal history of nicotine dependence
CPT/HCPCS: 00123; 36415; 80048; 80053; 81025; 82805; 87637; 93005; 93306; 93308; 94640; 96361; 96374; 96375; 96376; 99285; J1650; 71045; 83735; 83880; 84484; 85025; 93010; 94664; 94760; 99222; 99233; 99239; J1815; J1940; J1941

== ENCOUNTER → 2024-05-22 08:57 | Outpatient (BNVA) | payer MEDICARE, BC, SELFPAY | PROVIDERS: Visit Provider Internal Medicine Cardiovascular Disease ==

== ENCOUNTER 2024-06-23 14:37 | Outpatient (REF) | payer MEDICARE, BC, SELFPAY ==
[2024-06-23 21:30] LABS: Anion Gap 9.8 mmol/L (3-11); CO2 24.2 mmol/L (21.0-32.0); CREATININE 2.1 mg/dL (0.55-1.02); Calcium 9.9 mg/dL (8.5-10.1); Chloride 102 mmol/L (98-107); Estimated GFR 24.12 (mL/min/1.73m2); Glucose 234 mg/dL (74-106); Potassium 5.5 mmol/L (3.5-5.1); Sodium 136 mmol/L (136-145)
[2024-06-23 21:44] LABS: BUN 99 mg/dL (7-18)
== END 2024-06-23 14:38 | disposition home or self-care (01) ==
LOC: LBN 14:37
PROVIDERS: Visit Provider Nurse Practitioner Family
DX: N18.4 Chronic kidney disease, stage 4 (severe) (principal); E11.65 Type 2 diabetes mellitus with hyperglycemia; Z86.59 Personal history of other mental and behavioral disorders
CPT/HCPCS: 80048

== ENCOUNTER → 2024-06-24 09:11 | Outpatient (BNVA) | payer MEDICARE, BC, SELFPAY | PROVIDERS: Referring Provider Student in an Organized Health Care Education/Training Program; Visit Provider Physician Assistant Surgical | DX: J44.9 Chronic obstructive pulmonary disease, unspecified (principal); J45.909 Unspecified asthma, uncomplicated; J96.11 Chronic respiratory failure with hypoxia; I27.81 Cor pulmonale (chronic); N18.4 Chronic kidney disease, stage 4 (severe); C34.92 Malignant neoplasm of unspecified part of left bronchus or lung; Z90.2 Acquired absence of lung [part of]; Z87.891 Personal history of nicotine dependence; Z98.890 Other specified postprocedural states | CPT/HCPCS: 99215 ==

== ENCOUNTER 2024-06-29 04:17 | Outpatient (CLI) | payer MEDICARE, BC, SELFPAY ==
[2024-06-29 17:54] LABS: Anion Gap 7.1 mmol/L (3-11); BUN 65 mg/dL (7-18); CO2 27.9 mmol/L (21.0-32.0); CREATININE 1.7 mg/dL (0.55-1.02); Calcium 9.3 mg/dL (8.5-10.1); Chloride 104 mmol/L (98-107); Estimated GFR 31.08 (mL/min/1.73m2); Glucose 156 mg/dL (74-106); Potassium 5.2 mmol/L (3.5-5.1); Sodium 139 mmol/L (136-145)
== END 2024-06-29 04:18 | disposition home or self-care (01) ==
LOC: LBO 04:17
PROVIDERS: Referring Provider Nurse Practitioner Family; Visit Provider Nurse Practitioner Family
DX: E11.22 Type 2 diabetes mellitus with diabetic chronic kidney disease (principal); Z79.4 Long term (current) use of insulin; N18.32 Chronic kidney disease, stage 3b
CPT/HCPCS: 80048; 94762

== ENCOUNTER 2024-06-29 04:29 | Outpatient (CLI) | payer MEDICARE, BC, SELFPAY | END 2024-06-29 04:30 | disposition home or self-care (01) | LOC: RT 04:29 | PROVIDERS: Visit Provider Physician Assistant Surgical | DX: J96.11 Chronic respiratory failure with hypoxia (principal); Z90.2 Acquired absence of lung [part of]; Z98.890 Other specified postprocedural states | CPT/HCPCS: 94762 ==

== ENCOUNTER 2024-07-27 16:19 | Outpatient (CLI) | payer MEDICARE, BC, SELFPAY ==
--- NOTE | 2024-07-27 16:45 | DI.RAD_ITS ---
Exam(s) XR FOOT RT COMPLETE EXAM: XR FOOT RT COMPLETE CLINICAL HISTORY: M86.9 Osteomyelitis unspecified, Rule out osteomyelitis. TECHNIQUE: 2D digital imaging was performed of the right foot. Three images were obtained. AP, obl ique and lateral views were obtained. COMPARISON: No exams were available for comparison FINDINGS: BONES: No acute fracture is present. No bony destructive lesion is seen. JOINTS: No dislocation present. The joint spaces are well maintained. SOFT TISSUE: There is soft tissue swelling of the foot. No soft tissue gas is identified. IMPRESSION: No radiographic evidence to suggest osteomyelitis. DATA REPOSITORY: RADIATION DOSE DELIVERED:
== END 2024-07-27 16:39 ==
LOC: DI 16:19
PROVIDERS: PCP Nurse Practitioner Family; Visit Provider Nurse Practitioner Adult Health
DX: M86.9 Osteomyelitis, unspecified (principal)
CPT/HCPCS: 73630

== ENCOUNTER 2024-07-27 21:26 | Outpatient (REF) | payer MEDICARE, BC, SELFPAY ==
[2024-07-27 21:46] LABS: Abs Immature Grans 0.05 10^3/uL (0.0-0.06); Absolute Basophil Count 0.06 10^3/uL (0.0-0.2); Absolute Eosinophil Count 0.14 10^3/uL (0.0-0.7); Absolute Monocyte Count 0.68 10^3/uL (0.1-0.8); Absolute Neutrophil Count 7.43 10^3/uL (1.2-6.7); Basophils % 0.6 %; Eosinophils % 1.5 %; HCT 35.8 % (36.0-46.0); HGB 11.1 g/dL (11.2-15.7); Immature Grans % 0.5 %; Lymphocytes % 9.7 %; MCH 29.1 pg (27.0-33.0); MCV 94 fL (80-95); MPV 11.5 fL (8.0-11.0); Monocytes % 7.3 %; Neutrophils % 80.4 %; Platelet Count 234 10^3/uL (130-400); RBC 3.81 10^6/uL (3.93-5.22); RDW 14.6 % (11.7-14.6); RDW-SD 50.1 fL; WBC 9.26 10^3/uL (4.4-10.8)
[2024-07-27 21:57] LABS: ALT 28 U/L (14-59); AST 21 U/L (15-37); Albumin 3.6 g/dL (3.4-5.0); Alkaline Phosphatase 135 U/L (46-116); BUN 45 mg/dL (7-18); Bilirubin, Total 0.3 mg/dL (0.2-1.0); C-Reactive Protein 1.69 mg/dL (<or=0.5); CREATININE 1.4 mg/dL (0.55-1.02); Calcium 9.2 mg/dL (8.5-10.1); Chloride 105 mmol/L (98-107); Estimated GFR 39.23 (mL/min/1.73m2); Glucose 169 mg/dL (74-106); Potassium 4.5 mmol/L (3.5-5.1); Sodium 140 mmol/L (136-145); Total Protein 6.8 g/dL (6.4-8.2); Uric Acid 8.6 mg/dL (2.6-6.0)
== END 2024-07-27 21:27 | disposition home or self-care (01) ==
LOC: NCHCN 21:26
PROVIDERS: PCP Nurse Practitioner Family; Visit Provider Nurse Practitioner Adult Health
DX: E11.65 Type 2 diabetes mellitus with hyperglycemia (principal); L03.031 Cellulitis of right toe
CPT/HCPCS: 80053; 84550; 85025; 86140

== ENCOUNTER 2024-07-31 12:36 | Emergency (ER) | payer MEDICARE, BC, SELFPAY ==
[2024-07-31 12:40] VITALS: BP 179/78; PULSE 100; RESP 20; TEMP 36.6; O2SAT 95
[2024-07-31] MEDS: Acetaminophen 325 MG TAB 650 MG PO (13:12)
--- NOTE | 2024-07-31 13:15 | ED.GENADUL_ITS ---
Discharge Plan Disposition Patient Disposition: Home Condition: Stable Discharge Details Clinical Impression: Cellulitis of foot, right, Elevated blood sugar Primary Care Provider: Kitty Rousseau ED Provider: Reginaldo Thompson Home Meds and New Rx's Prescriptions: New cephalexin 500 mg capsule 500 mg PO TID Qty: 20 0RF Continued (DME) Nebulizer Qty: 1 0RF Rx Instructions: As directed cholecalciferol (vitamin D3) 25 mcg (1,000 unit) capsule 25 mcg PO DAILY nystatin 100,000 unit/gram ointment 1 applic topical BID Qty: 30 1RF Rx Instructions: Apply under breasts x 1-2 weeks ipratropium-albuterol 0.5 mg-3 mg(2.5 mg base)/3 mL solution for nebulization 3 ml IH Q6H PRN (Reason: wheezing or SOB) Qty: 180 12RF magnesium oxide 400 mg magnesium capsule 400 mg PO DAILY Gaviscon Extra Strength 160-105 mg tablet,chewable 4 tab PO HS PRN tiotropium bromide [Spiriva with HandiHaler] 18 mcg capsule, w/inhalation device 1 cap Inhalation DAILY Qty: 90 3RF Rx Instructions: for COPD insulin degludec [Tresiba FlexTouch U-100] 100 unit/mL (3 mL) insulin pen 19 unit SC HS sulfamethoxazole-trimethoprim [Bactrim DS] 800-160 mg tablet 1 tab PO Q12H Qty: 14 0RF cyanocobalamin (vitamin B-12) [Vitamin B-12] 1,000 MCG tablet 1,000 mcg PO DAILY docusate sodium [Colace] 100 MG capsule 100 mg PO PRN Proctofoam HC 10 GM foam 10 gm RC PRN Qty: 1 Rx Instructions: as needed for hemorrhoidal inflammation aspirin [Aspir-81] 81 MG tablet,delayed release (DR/EC) 81 mg PO DAILY (DME) Oxygen Tank See Dose Instructions .ROUTE .MEDSUPPLY Qty: 1 Rx Instructions: 2 L as directed (DME) pen needle, diabetic [Comfort EZ Pen Centereach] 31 gauge x 5/16 needle See Dose Instructions .ROUTE .MEDSUPPLY Qty: 300 3RF Dose Instruction: As directed Rx Instructions: TID fluticasone propionate 50 mcg/actuation spray,suspension 2 spray NS DAILY PRN (Reason: nasal congestion) Qty: 16 1RF (DME) lancets [OneTouch Delica Lancets] 33 gauge misc 1 ea Miscellaneous QID Qty: 360 3RF Rx Instructions: Lancets needed to test glucose to maintain A1C less than 7. Dx code E11.9 ik (DME) OneTouch Ultra Test Strip 1 ea Miscellaneous QID Qty: 360 3RF Rx Instructions: For DM E11.9 to maintain A1C less than 7 Apidra SoloStar U-100 Insulin 100 unit/mL insulin pen See Rx Instructions subcut BID Qty: 15 3RF Rx Instructions: 4-10 U per sliding scale subcut twice a day; as directed per sliding scale, rarely for high sugar AC hydrochlorothiazide 12.5 mg tablet 12.5 mg PO DAILY Qty: 90 3RF Rx Instructions: FOR BP CONTROL UNDER 130/80 Tradjenta 5 mg tablet 5 mg PO DAILY Qty: 90 3RF fluticasone propion-salmeterol [Wixela Inhub] 100-50 mcg/dose blister with device 1 inh inhalation BID Qty: 180 6RF albuterol sulfate 90 mcg/actuation HFA aerosol inhaler See Rx Instructions .ROUTE .COMPLEX Qty: 25.5 3RF Dose Instruction: INHALE TWO PUFFS BY MOUTH EVERY 4 HOURS NEEDED FOR SHORTNESS OF BREATH OR WHEEZING DIRECTED FOR COPD, WHEEZING Rx Instructions: INHALE TWO PUFFS BY MOUTH EVERY 4 HOURS NEEDED FOR SHORTNESS OF BREATH OR WHEEZING DIRECTED FOR COPD, WHEEZING glimepiride 1 mg tablet 1 mg PO QAM Qty: 90 3RF famotidine 40 mg tablet 40 mg PO QHS PRN (Reason: GERD flare) Qty: 90 3RF (DME) FreeStyle Omkar 14 Day Sensor Kit See Rx Instructions .Route Qty: 6 3RF Rx Instructions: For DM, to maintain A1C < 8 atorvastatin 40 mg tablet See Rx Instructions .ROUTE .COMPLEX Qty: 90 3RF Dose Instruction: TAKE 1 TABLET DAILY TO LOWER CHOLESTEROL, REDUCE CARDIOVASCULAR RISK Rx Instructions: TAKE 1 TABLET DAILY TO LOWER CHOLESTEROL, REDUCE ARDIOVASCULAR RISK lisinopril 5 mg tablet 5 mg PO DAILY MDD 15mg Qty: 90 3RF Rx Instructions: Add to 10mg for 15mg daily Discharge Instructions Instructions: Cellulitis (Skin Infection), Adult ED Additional Instructions: Please follow-up with your primary care physician. You have an appointment today that you should keep. I am recommending that you discontinue prednisone. Please discuss this with your doctor today. I recommend starting cephalexin. Please maintain tight glucose control. Your blood sugar was 317 here today. This is too high. Monitor your blood sugar closely and take insulin as prescri bed. Return to the emergency department immediately for any worsening or new concerning symptoms. Referrals: Kitty Rousseau APRN [Primary Care Provider] - HPI General Mode of arrival: ambulatory . Date/Time Provider Initiated Documentation: 07/31/24 12:54 . Limitations to Documentation: no limitations . Information obtained by: patient . HPI Narrative: HISTORY OF PRESENT ILLNESS 73-year-old female with insulin-dependent diabetes presents with right second toe inflammation for 8 days. Initially toe was quite swollen. Swelling has improved since onset but now has rash dorsal foot. Inflammation extends up her foot. Pain has improved since onset but does have intermittent sharp pain. X- ray on Saturday showed no infection; uric acid level was 8.6. No history of gout. No rash or pain elsewhere. Previously on cephalexin x5days, switched to sulfamethoxazole on Saturday. Compliant with regimen. Prescribed prednisone for suspected gout, but no improvement. History of cellulitis of the lower extremity in the remote past. Recent blood glucose spike to 340 after dinner and morning dose of prednisone. Reduced to 240 with Apidra before bedtime and took Tresiba. Morning blood glucose was 190. Reports headache attributed to stress. Related Data Home Medications ?Medication ?Instructions ?Recorded ?Confirmed cyanocobalamin (vitamin B-12) 1,000 mcg PO DAILY 06/20/12 07/31/24 1,000 mcg tablet (Vitamin B-12) docusate sodium 100 mg capsule 100 mg PO PRN 06/20/12 07/31/24 (Colace) hydrocortisone 1 %-pramoxine 1 % 10 gm RC PRN #1 tube 10/19/14 07/31/24 rectal foam (Proctofoam HC) aspirin 81 mg tablet,delayed 81 mg PO DAILY 01/17/16 07/31/24 release (Aspir-) Oxygen #1 ea 06/20/18 07/27/24 Nebulizer #1 ea 05/29/19 07/27/24 pen needle, diabetic 31 gauge x #300 ea 09/01/19 07/27/2409/04 (Comfort EZ Pen Centereach) magnesium oxide 400 mg PO DAILY 10/04/20 07/31/24 cholecalciferol (vitamin D3) 25 25 mcg PO DAILY 11/07/20 07/31/24 mcg (1,000 unit) capsule nystatin 100,000 unit/gram topical 1 applic topical BID #30 grams 11/25/20 07/31/24 ointment aluminum hydrox-magnesium carb 160 4 tab PO HS PRN 07/20/21 07/31/24 mg-105 mg chewable tablet (Gaviscon Extra Strength) fluticasone propionate 50 2 spray NS DAILY PRN nasal 09/14/21 07/31/24 mcg/actuation nasal congestion #16 grams spray,suspension lancets 33 gauge (Grasshoppers!Touch Delica #360 ea 01/16/22 07/27/24 Lancets) blood sugar diagnostic (Grasshoppers!uch #360 strips 02/24/23 07/27/24 Ultra Test strips) insulin glulisine U-100 100 See Rx Instructions subcut BID #15 07/21/23 07/31/24 unit/mL subcutaneous pen (Apidra mL SoloStar U-100 Insulin) tiotropium bromide 18 mcg capsule 1 cap inhalation DAILY #90 caps 08/07/23 07/31/24 with inhalation device (Spiriva with HandiHaler) hydrochlorothiazide 12.5 mg tablet 12.5 mg PO DAILY #90 tab-caps 08/23/23 07/31/24 fluticasone 100 mcg-salmeterol 50 1 inh inhalation BID #180 ea 09/28/23 07/31/24 mcg/dose blistr powdr for inhalation (Carlinxela Inhub) linagliptin 5 mg tablet (Tradjenta) 5 mg PO DAILY #90 tabs 09/28/23 07/31/24 albuterol sulfate 90 mcg/actuation See Rx Instructions .Route 01/27/24 07/31/24 aerosol inhaler .COMPLEX #25.5 grams famotidine 40 mg tablet 40 mg PO QHS PRN GERD flare #90 03/17/24 07/31/24 tabs flash glucose sensor (FreeStyle #6 ea 03/17/24 07/27/24 Omkar 14 Day Sensor kit) glimepiride 1 mg tablet 1 mg PO QAM #90 tabs 03/17/24 07/31/24 insulin degludec 100 unit/mL (3 19 unit subcut HS 06/23/24 07/31/24 mL) subcutaneous pen (Tresiba FlexTouch U-100 insulin) ipratropium 0.5 mg-albuterol 3 mg 3 ml inhalation Q6H PRN wheezing 06/24/24 07/31/24 (2.5 mg base)/3 mL nebulization or SOB #180 mL soln atorvastatin 40 mg tablet See Rx Instructions .Route 07/23/24 07/31/24 .COMPLEX #90 tabs lisinopril 5 mg tablet 5 mg PO DAILY #90 tabs 07/23/24 07/31/24 sulfamethoxazole 800 1 tab PO Q12H #14 tabs 07/27/24 07/31/24 mg-trimethoprim 160 mg tablet (Bactrim DS) cephalexin 500 mg capsule 500 mg PO TID #20 caps 07/31/24 Previous Rx's ?Medication ?Instructions ?Recorded Nebulizer #1 ea 05/29/19 pen needle, diabetic 31 gauge x #300 ea 09/01/1909/04 (Comfort EZ Pen Centereach) nystatin 100,000 unit/gram topical 1 applic topical BID #30 grams 11/25/20 ointment fluticasone propionate 50 2 spray NS DAILY PRN nasal 09/14/21 mcg/actuation nasal congestion #16 grams spray,suspension lancets 33 gauge (OneTouch Delica #360 ea 01/16/22 Lancets) blood sugar diagnostic (OneTouch #360 strips 02/24/23 Ultra Test strips) insulin glulisine U-100 100 See Rx Instructions subcut BID #15 07/21/23 unit/mL subcutaneous pen (Apidra mL SoloStar U-100 Insulin) tiotropium bromide 18 mcg capsule 1 cap inhalation DAILY #90 caps 08/07/23 with inhalation device (Spiriva with HandiHaler) hydrochlorothiazide 12.5 mg tablet 12.5 mg PO DAILY #90 tab-caps 08/23/23 fluticasone 100 mcg-salmeterol 50 1 inh inhalation BID #180 ea 09/28/23 mcg/dose blistr powdr for inhalation (Wixela Inhub) linagliptin 5 mg tablet (Tradjenta) 5 mg PO DAILY #90 tabs 06/08/24 albuterol sulfate 90 mcg/actuation See Rx Instructions .Route 01/27/24 aerosol inhaler .COMPLEX #25.5 grams famotidine 40 mg tablet 40 mg PO QHS PRN GERD flare #90 03/17/24 tabs flash glucose sensor (FreeStyle #6 ea 03/17/24 Omkar 14 Day Sensor kit) glimepiride 1 mg tablet 1 mg PO QAM #90 tabs 03/17/24 ipratropium 0.5 mg-albuterol 3 mg 3 ml inhalation Q6H PRN wheezing 06/24/24 (2.5 mg base)/3 mL nebulization or SOB #180 mL soln atorvastatin 40 mg tablet See Rx Instructions .Route 07/23/24 .COMPLEX #90 tabs lisinopril 5 mg tablet 5 mg PO DAILY #90 tabs 07/23/24 sulfamethoxazole 800 1 tab PO Q12H #14 tabs 07/27/24 mg-trimethoprim 160 mg tablet (Bactrim DS) cephalexin 500 mg capsule 500 mg PO TID #20 caps 07/31/24 Allergies Allergy/AdvReac Type Severity Reaction Status Date / Time morphine Allergy vomit Verified 07/31/24 12:46 exenatide (From [place]) AdvReac Intermediate gi upset Verified 07/31/24 12:46 General Stated Complaint: Orthopedic KAREN: 3 Exam Narrative Exam Narrative: PHYSICAL EXAM General Appearance: Normal. Vital signs: Within normal limits. HEENT: Within normal limits. Respiratory: Trace wheeze bilateral lower lungs. Cardiovascular: Heart sounds normal, regular rate and rhythm. Gastrointestinal: Bowel sounds normal, abdomen soft. Extremities: Strong pulses in right foot. Skin: Warm and dry. Red petechial rash dorsal foot extending up from second toe. Second toe swelling appears significantly improved compared to photo in record from earlier this week. Neurological: Normal. Distal sensation intact RUE. Distal motor intact RUE Course Vital Signs Vital signs: Vital Signs Temperature 36.6 C 07/31/24 12:40 Pulse 100 H 07/31/24 12:40 Respiratory Rate 20 07/31/24 12:40 Blood Pressure 179/78 H 07/31/24 12:40 Pulse Oximetry 95 07/31/24 12:40 Temperature 36.6 C 07/31/24 12:40 Pulse 100 H 07/31/24 12:40 Respiratory Rate 20 07/31/24 12:40 Blood Pressure 179/78 H 07/31/24 12:40 Pulse Oximetry 95 07/31/24 12:40 Pain Level 0 07/31/24 12:40 Medical Decision Making ASSESSMENT AND PLAN Initial Assessment: 73-year-old female with history of insulin-dependent diabetes and poor kidney function, presenting with right second toe inflammation persisting for 8 days, spreading up the foot. Initial concern by PCP for cellulitis, did not improve with 5-day course of Keflex. X-ray negative. Uric acid levels elevated. Patient was started on prednisone and Bactrim. Swelling of the toe has significantly improved since onset as has pain. She now notes rash dorsal foot that seems to be spreading proximally. She is concern for ongoing infection. Differential Diagnosis: - Possible gouty arthritis: Considered due to elevated uric acid, but no history of gout. - Cellulitis: Spreading rash suggests cellulitis. Plan to restart Keflex for 5 days and continue Bactrim. ED Course: - Advised to stay off foot and elevate. - Restart Keflex for 5 days. - Continue Bactrim. - Follow up with PCP this afternoon. - Consider discontinuing prednisone. - Blood sugar spike to 340 after prednisone, reduced to 240 with Apidra, took Tresiba. Morning blood sugar 190 this a.m. - Advised high blood sugar can impede healing if infected, steroids affect blood sugar control. - Occasional wheezing, uses nebulizer, more effective than albuterol, not used in past 3 days. - Provided Tylenol for headache relief. - Rechecked blood sugar fingerstick here 317. Patient declined insulin noting she would take her home dosing. Final Assessment: Persistent right second toe inflammation with spreading rash, likely cellulitis. Hyperglycemia. Clinical Impression: - Cellulitis - Insulin-dependent diabetes mellitus - Wheezing - Headache Disposition: - Follow-Up: Patient to follow up with PCP this afternoon. Follow-up with diabetic counselor. Usual and customary discharge instructions were reviewed. Patient was encouraged to return immediately if symptoms not improving or for new concerning symptoms. MDM Components Evaluation: - Number of Differential Diagnoses or Management Options: Possible gouty arthritis vs cellulitis. - Amount and Complexity of Data Reviewed: X-ray results, uric acid level, blood sugar readings, consultation with PCP. - Risk of Complication and Morbidity or Mortality: High blood sugar can impede healing if infected; steroids affect blood sugar control. This document was written with the assistance of ANNABEL Quach. The patient cons ented to its use. 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 PFSH All Active Problems (Updated 07/31/24 @ 13:27 by Reginaldo Thompson MD) Elevated blood sugar (Acute) Cellulitis of foot, right (Acute) Toe swelling (Acute) Former cigarette smoker (Acute) Chronic hypoxic respiratory failure (Acute) History of depression (Acute) Acute exacerbation of CHF (congestive heart failure) (Acute) Cor pulmonale, chronic (Acute) CKD (chronic kidney disease) stage 4, GFR 15-29 ml/min (Acute) Fall 2023 [place] Anemia (Chronic) CHF (congestive heart failure) (Chronic) Respiratory failure (Acute) Acute and chronic respiratory failure with hypoxia (Acute) Ventricular trigeminy (Acute) Driving safety issue (Acute) When vertigo is active (she will need RCT as she cannot drive with active vertigo.) >> grounded when vertigo is active.. Vertigo (Acute) Per ER report in [place] Hypertrophic toenail (Acute) Does anyone make HV? [ ] Podiatry PRN Xeroderma (Acute) Hemoglobin A1c above reference range (Acute) Nocturnal polyuria (Acute) Postmenopausal estrogen deficiency (Chronic) Requesting DEXA scan At risk for osteoporosis (Acute) Hx smoking, PPI and prednisone use. Chronic obstructive lung disease (Acute 02/20/02) FEV1 0.98 (34%PRED, 58% FVC) FOLLOWING Left PNEUMONECTOMY; home O2 since lung surg 2003 Secondary anemia (Acute 01/20/05) Mild improvement, 08/2021 (11.9) .. Hx: due to chemotherapy; PERSISTS 11.5 (08/2015 [facility] [place] 10.8 2017 [facility] [place]; also due to CKD Chronic kidney disease (Acute) stage 3. [facility] [place] Denilson Rendon MD 05/19/18 Decreased stamina (Acute) Fatigue (Acute) Caregiver stress (Chronic) Son @ home, Psych Disorder affecting ADL, including worsening paranoia. Skin lesion of breast (Acute) Appears as shira kerat .. Actinic keratosis (Acute) 10/06/20 destruction of lesion, left cheek, left nasal lip, right paranasal, right nasal bridge Diabetes mellitus (Chronic) dx 06/2003, co-managed ; goal A1c <7.5; most labs at [facility] [place] Confusing mix of meds with recent changes 2' Cr levels being affected. Appreciate re-eval, along with diet review by Latoya! 12/13/17 ik Met with Nephro ([facility] [place]), glad of no microhematuria .. meds and diet reviewed, trialing mild changes, d/c glimepuride. Diabetes mellitus type 2, uncontrolled (Acute 04/09/17) dx 06/2003, co-managed ; goal A1c <7.5; most labs at [facility] Type 2 diabetes mellitus with stage 3 chronic kidney disease, with long-term current use of insulin (Acute) [facility] [place], goal A1c < 7.5 .. 6.8 today (June 2017)! .. down from 8/7.6/8.2 in 2017. Cr 1.42 03/2017, 1.65 (07/17/17). Apr 2017 [facility] [place] Endo note mentions Nephro referral, placing per 07/17/16 lab results. Stressful life events affecting family and household (Acute) Counseling on health promotion and disease prevention (Acute) Asthma (Acute 05/15/11) Oxygen desaturation (Chronic 03/2004) Family history of colon cancer (Acute 05/15/11) Stasis dermatitis (Acute 05/12/02) Hx of pneumonectomy (Chronic 03/2004) Left lung removed, sent home with oxygen Vitamin D deficiency (Acute 12/26/10) Osteoarthritis (Acute 01/12/10) mild R hip on x-ray/clinical Obesity (Acute 05/12/02) Good weight loss, 290 today .. down from 311 last year. Hyperlipidemia (Acute 08/21/03) Gastroesophageal reflux disease (Acute 05/19/05) CHRONIC PRILOSEC OTC Essential hypertension (Chronic 09/14/03) Hx elevatd DBP, but she monitors closely. Meds tolerated. Low, but asympto, BP today, 01/29/18. Low normal/baseline, 07/2018. ik Medical History Lung cancer Adenocarcinoma of lung (03/22/04) Smoker (05/15/11) QUIT? Renal insufficiency (2018) Seeing Nephro; improved. Surgical History pneumonectomy (04/20/04) Left, [facility] [place] Tonsillectomy and adenoidectomy (03/02/10) Extraction of cataract (~01/2015) [facility] [place] Family History Mother , stroke, pneumonia at age 82. Personal history of malignant neoplasm Father , suicide at age 75. No problems noted. Sister Age: 72 No problems noted. Brother , bowel obstruction at age 46. No problems noted. Social History Smoking/Tobacco Use Status: Former Tobacco Use Smoking risk assessment performed?: Yes Alcohol Intake: former Year quit: 1990 Drug use: Never Substance use type: does not use Household members: children Housing: house Number of Children: 2 number of grandchildren: 1 Communication Needs: None What is your relationship status?: Panel score (0-1 are the most socially isolated patients): 0 What type of physical activity do you participate in: none Seatbelt use: always Drive intox or ride w/intox cmv driver: No Working smoke detector in home: Yes Carbon monox detector in home: Yes Do you feel safe at home: Yes Do you feel safe in your relationship?: Yes
[2024-07-31] MEDS: Cephalexin 500 MG CAP PO (13:28)
== END 2024-07-31 13:41 | disposition home or self-care (01) ==
PROVIDERS: Emergency Provider Student in an Organized Health Care Education/Training Program; PCP Nurse Practitioner Family
DX: L03.031 Cellulitis of right toe (principal); E11.65 Type 2 diabetes mellitus with hyperglycemia; E11.22 Type 2 diabetes mellitus with diabetic chronic kidney disease; N18.4 Chronic kidney disease, stage 4 (severe); E78.5 Hyperlipidemia, unspecified; Z79.4 Long term (current) use of insulin; Z79.82 Long term (current) use of aspirin; Z99.81 Dependence on supplemental oxygen
CPT/HCPCS: 82962; 99283

== ENCOUNTER 2024-08-06 12:40 | Outpatient (REF) | payer MEDICARE, BC, SELFPAY ==
[2024-08-06 19:25] LABS: HCT 35.4 % (36.0-46.0); HGB 11.2 g/dL (11.2-15.7); MCH 29.2 pg (27.0-33.0); MCHC 31.6 % (32.0-36.0); MCV 92 fL (80-95); MPV 10.8 fL (8.0-11.0); Platelet Count 275 10^3/uL (130-400); RBC 3.83 10^6/uL (3.93-5.22); RDW 14.7 % (11.7-14.6); RDW-SD 49.5 fL; WBC 9.17 10^3/uL (4.4-10.8)
[2024-08-06 19:45] LABS: C-Reactive Protein 2.46 mg/dL (<or=0.5); Uric Acid 8.2 mg/dL (2.6-6.0)
== END 2024-08-06 12:41 | disposition home or self-care (01) ==
LOC: LBN 12:40
PROVIDERS: PCP Nurse Practitioner Family; Visit Provider Nurse Practitioner Adult Health
DX: L03.90 Cellulitis, unspecified (principal); M10.9 Gout, unspecified
CPT/HCPCS: 85027; 84550; 86140

== ENCOUNTER 2024-08-12 11:24 | Outpatient (CLI) | payer MEDICARE, BC, SELFPAY ==
--- NOTE | 2024-08-12 15:15 | DI.RAD_ITS ---
Exam(s) XR FOOT RT COMPLETE EXAM: XR FOOT RT COMPLETE CLINICAL HISTORY: cellulitis rt foot, diabetes mellitus type 2 uncontrolled, L03.115, E11.65. TECHNIQUE: 2D digital imaging was performed. COMPARISON: CR XR FOOT RT COMPLETE from 07/27/2024 FINDINGS: 3 views There is no evidence of fracture or diastasis of the Lisfranc joint. There is some midfoot descent b ut I suspect that this is more related to the fact that the present lateral view is weight-bearing an d the previous was performed supine/nonweightbearing. There is some degenerative change at the articulation between the navicular and medial cuneiform. Sl ight step is seen on the lateral view at the articulation between the medial cuneiform and base of th e great toe metatarsal. There is no gas in the soft tissues. No radiopaque foreign bodies evident. No obvious skin ulcers. There is no radiographic evidence of osteomyelitis. Small enthesophyte is noted on the posterior ca lcaneus Achilles insertion site. IMPRESSION: No radiographic evidence of osteomyelitis. Other significant findings as above. DATA REPOSITORY: RADIATION DOSE DELIVERED:
== END 2024-08-12 11:44 ==
LOC: DI 11:24
PROVIDERS: PCP Nurse Practitioner Family; Visit Provider Nurse Practitioner Family
DX: L03.115 Cellulitis of right lower limb (principal); E11.65 Type 2 diabetes mellitus with hyperglycemia
CPT/HCPCS: 73630

== ENCOUNTER → 2024-08-13 11:06 | Outpatient (BNVA) | payer MEDICARE, BC, SELFPAY | PROVIDERS: PCP Nurse Practitioner Family; Referring Provider Nurse Practitioner Family; Visit Provider Podiatrist | DX: L03.115 Cellulitis of right lower limb (principal); M10.9 Gout, unspecified; I73.89 Other specified peripheral vascular diseases; M79.89 Other specified soft tissue disorders; E11.22 Type 2 diabetes mellitus with diabetic chronic kidney disease; N18.30 Chronic kidney disease, stage 3 unspecified; Z79.4 Long term (current) use of insulin; E11.65 Type 2 diabetes mellitus with hyperglycemia; L85.8 Other specified epidermal thickening; R09.89 Other specified symptoms and signs involving the circulatory and respiratory systems; R60.0 Localized edema; R23.8 Other skin changes; M79.674 Pain in right toe(s) | CPT/HCPCS: 11056; 99214 ==

== ENCOUNTER 2024-08-14 12:17 | Outpatient (REF) | payer MEDICARE, BC, SELFPAY ==
[2024-08-14 15:19] LABS: ESR 47 mm/hr (0-30)
[2024-08-14 15:22] LABS: Abs Immature Grans 0.08 10^3/uL (0.0-0.06); Absolute Basophil Count 0.08 10^3/uL (0.0-0.2); Absolute Eosinophil Count 0.14 10^3/uL (0.0-0.7); Absolute Lymphocyte Count 1.04 10^3/uL (1.2-3.4); Absolute Monocyte Count 0.66 10^3/uL (0.1-0.8); Absolute Neutrophil Count 5.86 10^3/uL (1.2-6.7); Eosinophils % 1.8 %; HCT 34.5 % (36.0-46.0); HGB 10.6 g/dL (11.2-15.7); Lymphocytes % 13.2 %; MCH 28.9 pg (27.0-33.0); MCHC 30.7 % (32.0-36.0); MCV 94 fL (80-95); MPV 10.4 fL (8.0-11.0); Monocytes % 8.4 %; Neutrophils % 74.6 %; Platelet Count 243 10^3/uL (130-400); RBC 3.67 10^6/uL (3.93-5.22); RDW 14.5 % (11.7-14.6); RDW-SD 49.5 fL; WBC 7.86 10^3/uL (4.4-10.8)
[2024-08-14 15:34] LABS: Anion Gap 8.1 mmol/L (3-11); BUN 45 mg/dL (7-18); CO2 28.9 mmol/L (21.0-32.0); CREATININE 1.4 mg/dL (0.55-1.02); Calcium 9.2 mg/dL (8.5-10.1); Chloride 104 mmol/L (98-107); Estimated GFR 39.23 (mL/min/1.73m2); Glucose 194 mg/dL (74-106); Sodium 141 mmol/L (136-145)
[2024-08-14 16:20] LABS: C-Reactive Protein 0.93 mg/dL (<or=0.5); Uric Acid 9.9 mg/dL (2.6-6.0)
== END 2024-08-14 12:18 | disposition home or self-care (01) ==
LOC: LBN 12:17
PROVIDERS: Podiatrist; PCP Nurse Practitioner Family; Visit Provider Family Medicine
DX: N18.4 Chronic kidney disease, stage 4 (severe) (principal); L03.115 Cellulitis of right lower limb; M10.9 Gout, unspecified
CPT/HCPCS: 80048; 85652; 84550; 85025; 86140

== ENCOUNTER 2024-08-27 00:55 | Outpatient (CLI) | payer MEDICARE, BC, SELFPAY ==
--- NOTE | 2024-08-27 08:00 | DI.RAD_ITS ---
Exam(s) XR TOE RT SECOND EXAM: XR TOE RT SECOND CLINICAL HISTORY: ? OSTEO,GOUT,CELLULITIS,L03.115,M10.9. TECHNIQUE: 2D digital imaging was performed. COMPARISON: CR XR FOOT RT COMPLETE from 08/12/2024 FINDINGS: Lateral view is limited by overlap of the distal phalanx with the great toe. BONES: No acute fracture is present. No bony destructive lesion is seen. JOINTS: No dislocation present. SOFT TISSUE: Swelling of the 2nd toe. No foreign body or gas collection. IMPRESSION: Somewhat limited exam. No evidence of osteomyelitis. No erosions to suggest gout. DATA REPOSITORY: RADIATION DOSE DELIVERED:
== END 2024-08-27 01:15 ==
LOC: DI 00:55
PROVIDERS: PCP Nurse Practitioner Family; Visit Provider Podiatrist
DX: M10.9 Gout, unspecified (principal); L03.115 Cellulitis of right lower limb
CPT/HCPCS: 73660

== ENCOUNTER 2024-09-09 01:55 | Outpatient (CLI) | payer MEDICARE, BC, SELFPAY ==
--- NOTE | 2024-09-09 13:08 | DI.RAD_ITS ---
Exam(s) XR TOE RT SECOND EXAM: XR TOE RT SECOND CLINICAL HISTORY: ? osteo, gout, cellulitis rt foot,m10.9,l03.115. TECHNIQUE: 2D digital imaging was performed. COMPARISON: CR XR FOOT RT COMPLETE from 07/27/2024 CR XR FOOT RT COMPLETE from 08/12/2024 CR XR TOE RT SECOND from 08/27/2024 FINDINGS: BONES: No acute fracture is present. No bony destructive lesion is seen. JOINTS: No dislocation present.Degenerative changes of the interphalangeal joints. SOFT TISSUE: Soft tissue swelling of the 2nd toe. No foreign body or abnormal gas collection. IMPRESSION: Soft tissue swelling of the 2nd toe. No visible bony erosions. DATA REPOSITORY: RADIATION DOSE DELIVERED:
== END 2024-09-09 02:15 ==
LOC: DI 01:55
PROVIDERS: PCP Nurse Practitioner Family; Visit Provider Podiatrist
DX: M10.9 Gout, unspecified (principal); L03.115 Cellulitis of right lower limb
CPT/HCPCS: 73660

== ENCOUNTER → 2024-09-10 11:13 | Outpatient (BNVA) | payer MEDICARE, BC, SELFPAY | PROVIDERS: PCP Nurse Practitioner Family; Referring Provider Nurse Practitioner Family; Visit Provider Podiatrist | DX: L03.115 Cellulitis of right lower limb (principal); E11.22 Type 2 diabetes mellitus with diabetic chronic kidney disease; N18.30 Chronic kidney disease, stage 3 unspecified; Z79.4 Long term (current) use of insulin; E11.65 Type 2 diabetes mellitus with hyperglycemia; M79.89 Other specified soft tissue disorders | CPT/HCPCS: 99213 ==

== ENCOUNTER → 2024-12-24 12:31 | Outpatient (BNVA) | payer MEDICARE, BC, SELFPAY | PROVIDERS: PCP Nurse Practitioner Family; Visit Provider Physician Assistant Surgical | DX: J96.11 Chronic respiratory failure with hypoxia (principal); I27.81 Cor pulmonale (chronic); I50.9 Heart failure, unspecified; Z23 Encounter for immunization; J44.9 Chronic obstructive pulmonary disease, unspecified; Z90.2 Acquired absence of lung [part of]; Z87.891 Personal history of nicotine dependence | CPT/HCPCS: 36415; 90471; 90684; 99214 ==

== ENCOUNTER 2024-12-24 12:54 | Outpatient (REF) | payer MEDICARE, BC, SELFPAY ==
[2024-12-24 22:07] LABS: ALT 13 U/L (14-59); AST 13 U/L (15-37); Albumin 3.8 g/dL (3.4-5.0); Alkaline Phosphatase 128 U/L (46-116); Anion Gap 8.7 mmol/L (3-11); BUN 51 mg/dL (7-18); Bilirubin, Total 0.2 mg/dL (0.2-1.0); CO2 27.3 mmol/L (21.0-32.0); Calcium 9.1 mg/dL (8.5-10.1); Chloride 106 mmol/L (98-107); Glucose 137 mg/dL (74-106); Potassium 4.3 mmol/L (3.5-5.1); Sodium 142 mmol/L (136-145); Total Protein 6.8 g/dL (6.4-8.2); Uric Acid 5.7 mg/dL (2.6-6.0)
[2024-12-24 22:23] LABS: Magnesium 2.2 mg/dL (1.8-2.4)
== END 2024-12-24 12:55 | disposition home or self-care (01) ==
LOC: LBN 12:54
PROVIDERS: PCP Nurse Practitioner Family; Visit Provider Physician Assistant Surgical
DX: M10.9 Gout, unspecified (principal); I27.81 Cor pulmonale (chronic)
CPT/HCPCS: 80053; 83735; 84550; 85025

== ENCOUNTER 2025-03-16 03:45 | Inpatient (IN) | payer MEDICARE, BC, SELFPAY ==
[2025-03-16] VITALS (41 sets, daily range): BP systolic 130–207; BP diastolic 66–117; PULSE 45–110; RESP 12–32; TEMP 35.3–36.8; O2SAT 98–100
--- NOTE | 2025-03-16 03:15 | RT.EKG_ITS ---
APPROVED REPORT Exam: Resting ECG Reason for Exam: chest pain Patient Location: E HR:101 bpm ECG Measurements Heart Rate 101 AXIS MD 170 P 90 QRSd 96 QRS 88 QT 343 T -68 QTc 444 Conclusion Sinus tachycardia...rate> 99 Low voltage, precordial leads...precordial leads <1.0mV Nonspecific T abnormalities, diffuse leads...T <-0.10mV, ant/lat/inf appropriate intervals no ST segment or T wave abnormalities to suggest occlusive [place]
--- NOTE | 2025-03-16 03:44 | W.ED.GENAD ---
Discharge Plan Discharge Details Chief Complaint: Chest Pain Clinical Impression: Myocardial infarct, Secondary anemia, CHF (congestive heart failure), CKD (chronic kidney disease) stage 4, GFR 15-29 ml/min, PVD (peripheral vascular disease), Diabetes mellitus, Essential hypertension, Urinary tract infection Primary Care Provider: Kitty Rousseau ED Provider: Tameka Cook Home Meds and New Rx's Prescriptions: No Action (DME) Nebulizer Qty: 1 0RF Rx Instructions: As directed cholecalciferol (vitamin D3) 25 mcg (1,000 unit) capsule 25 mcg PO DAILY nystatin 100,000 unit/gram ointment 1 applic topical BID Qty: 30 1RF Rx Instructions: Apply under breasts x 1-2 weeks ipratropium-albuterol 0.5 mg-3 mg(2.5 mg base)/3 mL solution for nebulization 3 ml IH Q6H PRN (Reason: wheezing or SOB) Qty: 180 12RF tiotropium bromide [Spiriva with HandiHaler] 18 mcg capsule, w/inhalation device 1 cap Inhalation DAILY Qty: 90 3RF Rx Instructions: for COPD semaglutide 0.25 mg or 0.5 mg (2 mg/3 mL) pen injector 0.25 mg subcut QWEEK Rx Instructions: for 4 weeks magnesium oxide 400 mg magnesium capsule 400 mg PO DAILY Gaviscon Extra Strength 160-105 mg tablet,chewable 4 tab PO HS PRN cyanocobalamin (vitamin B-12) [Vitamin B-12] 1,000 MCG tablet 1,000 mcg PO DAILY docusate sodium [Colace] 100 MG capsule 100 mg PO PRN Proctofoam HC 10 GM foam 10 gm RC PRN Qty: 1 Rx Instructions: as needed for hemorrhoidal inflammation aspirin [Aspir-81] 81 MG tablet,delayed release (DR/EC) 81 mg PO DAILY (DME) Oxygen Tank See Dose Instructions .ROUTE .MEDSUPPLY Qty: 1 Rx Instructions: 2 L as directed fluticasone propionate 50 mcg/actuation spray,suspension 2 spray NS DAILY PRN (Reason: nasal congestion) Qty: 16 1RF atorvastatin 40 mg tablet See Rx Instructions .ROUTE .COMPLEX Qty: 90 3RF Dose Instruction: TAKE 1 TABLET DAILY TO LOWER CHOLESTEROL, REDUCE CARDIOVASCULAR RISK Rx Instructions: TAKE 1 TABLET DAILY TO LOWER CHOLESTEROL, REDUCE ARDIOVASCULAR RISK lisinopril 5 mg tablet 5 mg PO DAILY MDD 15mg Qty: 90 3RF Rx Instructions: Add to 10mg for 15mg daily (DME) pen needle, diabetic [Comfort EZ Pen Stryker] 31 gauge x 5/16 needle See Dose Instructions .ROUTE .MEDSUPPLY Qty: 300 3RF Dose Instruction: As directed Rx Instructions: TID insulin degludec [Tresiba FlexTouch U-100] 100 unit/mL (3 mL) insulin pen 19 unit SC HS Qty: 15 3RF Apidra SoloStar U-100 Insulin 100 unit/mL insulin pen See Rx Instructions subcut BID Qty: 15 3RF Rx Instructions: 4-10 U per sliding scale subcut twice a day; as directed per sliding scale, rarely for high sugar AC hydrochlorothiazide 12.5 mg tablet 12.5 mg PO DAILY Qty: 90 3RF Rx Instructions: FOR BP CONTROL UNDER 130/80 allopurinol 100 mg tablet 100 mg PO DAILY Patient Comments: [place] [facility] [place].HE (DME) Diabetic Shoes See Rx Instructions .Route .MEDSUPPLY Qty: 1 0RF Rx Instructions: As directed Tradjenta 5 mg tablet See Rx Instructions .ROUTE .COMPLEX Qty: 90 3RF Dose Instruction: TAKE 1 TABLET DAILY Rx Instructions: TAKE 1 TABLET DAILY (DME) FreeStyle Lite Strips Strip See Rx Instructions .Route Qty: 100 1RF Rx Instructions: Check Blood sugar one time a day.DX:E11.9. Keep A1c below 7 (DME) blood-glucose meter [FreeStyle Lite Meter] Kit See Rx Instructions .Route Qty: 1 0RF Rx Instructions: Check blood sugar one time a day. DX:E11.9. Keep A1c below 7 (DME) lancets [FreeStyle Lancets] 28 gauge misc See Rx Instructions .Route Qty: 100 1RF Rx Instructions: Check blood sugar one time a day. DX:E11.9. Keep A1c below 7 famotidine 40 mg tablet See Rx Instructions .ROUTE .COMPLEX Qty: 90 3RF Dose Instruction: TAKE 1 TABLET DAILY AT BEDTIME NEEDED FOR GASTROESOPHAGEALREFLUX DISEASE FLARE Rx Instructions: TAKE 1 TABLET DAILY AT BEDTIME NEEDED FOR GASTROESOPHAGEALREFLUX DISEASE FLARE glimepiride 1 mg tablet 1 mg PO QAM Qty: 90 3RF (DME) FreeStyle Omkar 14 Day Sensor Kit See Rx Instructions .Route Qty: 6 3RF Rx Instructions: For DM, to maintain A1C < 8 fluticasone propion-salmeterol [Wixela Inhub] 100-50 mcg/dose blister with device 1 inh inhalation BID Qty: 180 6RF albuterol sulfate 90 mcg/actuation HFA aerosol inhaler See Rx Instructions .ROUTE .COMPLEX Qty: 25.5 3RF Dose Instruction: INHALE TWO PUFFS BY MOUTH EVERY 4 HOURS NEEDED FOR SHORTNESS OF BREATH OR WHEEZING DIRECTED FOR COPD, WHEEZING Rx Instructions: INHALE TWO PUFFS BY MOUTH EVERY 4 HOURS NEEDED FOR SHORTNESS OF BREATH OR WHEEZING DIRECTED FOR COPD, WHEEZING HPI General Mode of arrival: EMS. Date/Time Provider Initiated Documentation: 03/16/25 03:48. Limitations to Documentation: no limitations. Information obtained by: patient and old records reviewed. HPI Narrative: 74yo F with hx DM, CKD, PVD, COPD on 2L home O2, CHF, HTN, lung cancer s/p lobectomy, presenting for chest pain. For the past 4-5 nights she has had dull substernal burning chest pain that prevents her from sleeping. Resolves during the day, though she has been more SOB with exertion than she usually is. No alleviating or aggravating factors. Pain is worse tonight than it has been over the past several nights so she called EMS; was given 325 of ASA and 1 SL nitro prior to arrival. She reports that pain was beginning to resolve before EMS arrived, continued to improve after she got nitro, and that she currently has absolutely no pain. Otherwise in her usual state of health with no fevers, chills, rash, nausea, vomiting, abdominal pain, dysuria, hematuria, pleurtic pain, numbness, tingling, focal weakness, LE edema, or other concerns. Related Data Home Medications ?Medication ?Instructions ?Recorded ?Confirmed cyanocobalamin (vitamin B-12) 1,000 mcg PO DAILY 06/20/12 03/16/25 1,000 mcg tablet (Vitamin B-12) docusate sodium 100 mg capsule 100 mg PO PRN 06/20/12 03/16/25 (Colace) hydrocortisone 1 %-pramoxine 1 % 10 gm RC PRN #1 tube 10/19/14 03/16/25 rectal foam (Proctofoam HC) aspirin 81 mg tablet,delayed 81 mg PO DAILY 01/17/16 03/16/25 release (Aspir-) Oxygen #1 ea 06/20/18 12/14/24 Nebulizer #1 ea 05/29/19 12/14/24 magnesium oxide 400 mg PO DAILY 10/04/20 03/16/25 cholecalciferol (vitamin D3) 25 25 mcg PO DAILY 11/07/20 03/16/25 mcg (1,000 unit) capsule nystatin 100,000 unit/gram topical 1 applic topical BID #30 grams 11/25/20 03/16/25 ointment aluminum hydrox-magnesium carb 160 4 tab PO HS PRN 07/20/21 03/16/25 mg-105 mg chewable tablet (Gaviscon Extra Strength) fluticasone propionate 50 2 spray NS DAILY PRN nasal 09/14/21 03/16/25 mcg/actuation nasal congestion #16 grams spray,suspension ipratropium 0.5 mg-albuterol 3 mg 3 ml inhalation Q6H PRN wheezing 06/24/24 03/16/25 (2.5 mg base)/3 mL nebulization or SOB #180 mL soln atorvastatin 40 mg tablet See Rx Instructions .Route 07/23/24 03/16/25 .COMPLEX #90 tabs lisinopril 5 mg tablet 5 mg PO DAILY #90 tabs 07/23/24 03/16/25 pen needle, diabetic 31 gauge x #300 ea 08/03/24 12/14/2409/04 (Comfort EZ Pen Stryker) insulin degludec 100 unit/mL (3 19 unit (0.19 mL) subcut HS #15 mL 08/24/24 03/16/25 mL) subcutaneous pen (Tresiba FlexTouch U-100 insulin) insulin glulisine U-100 100 See Rx Instructions subcut BID #15 08/24/24 03/16/25 unit/mL subcutaneous pen (Apidra mL SoloStar U-100 Insulin) allopurinol 100 mg tablet 100 mg PO DAILY 08/25/24 03/16/25 hydrochlorothiazide 12.5 mg tablet 12.5 mg PO DAILY #90 tab-caps 08/25/24 03/16/25 Diabetic Shoes #1 ea 09/17/24 12/14/24 tiotropium bromide 18 mcg capsule 1 cap inhalation DAILY #90 caps 09/17/24 03/16/25 with inhalation device (Spiriva with HandiHaler) linagliptin 5 mg tablet (Tradjenta) See Rx Instructions .Route 11/04/24 03/16/25 .COMPLEX #90 tabs semaglutide 0.25 mg or 0.5 mg (2 0.25 mg subcut QWEEK 11/13/24 03/16/25 mg/3 mL) subcutaneous pen injector blood sugar diagnostic (FreeStyle #100 ea 12/08/24 03/16/25 Lite Strips) blood-glucose meter (FreeStyle #1 ea 12/08/24 03/16/25 Lite Meter kit) lancets 28 gauge (FreeStyle #100 ea 12/08/24 12/14/24 Lancets) famotidine 40 mg tablet See Rx Instructions .Route 01/28/25 03/16/25 .COMPLEX #90 tabs glimepiride 1 mg tablet 1 mg PO QAM #90 tabs 02/24/25 03/16/25 flash glucose sensor (FreeStyle #6 ea 02/25/25 Omkar 14 Day Sensor kit) albuterol sulfate 90 mcg/actuation See Rx Instructions .Route 03/05/25 03/16/25 aerosol inhaler .COMPLEX #25.5 grams fluticasone 100 mcg-salmeterol 50 1 inh inhalation BID #180 ea 03/05/25 03/16/25 mcg/dose blistr powdr for inhalation (Carlinxela Inhub) Previous Rx's ?Medication ?Instructions ?Recorded Nebulizer #1 ea 05/29/19 nystatin 100,000 unit/gram topical 1 applic topical BID #30 grams 11/25/20 ointment fluticasone propionate 50 2 spray NS DAILY PRN nasal 09/14/21 mcg/actuation nasal congestion #16 grams spray,suspension ipratropium 0.5 mg-albuterol 3 mg 3 ml inhalation Q6H PRN wheezing 06/24/24 (2.5 mg base)/3 mL nebulization or SOB #180 mL soln atorvastatin 40 mg tablet See Rx Instructions .Route 07/23/24 .COMPLEX #90 tabs lisinopril 5 mg tablet 5 mg PO DAILY #90 tabs 07/23/24 pen needle, diabetic 31 gauge x #300 ea 08/03/2409/04 (Comfort EZ Pen Stryker) insulin degludec 100 unit/mL (3 19 unit (0.19 mL) subcut HS #15 mL 08/24/24 mL) subcutaneous pen (Tresiba FlexTouch U-100 insulin) insulin glulisine U-100 100 See Rx Instructions subcut BID #15 08/24/24 unit/mL subcutaneous pen (Apidra mL SoloStar U-100 Insulin) hydrochlorothiazide 12.5 mg tablet 12.5 mg PO DAILY #90 tab-caps 08/25/24 Diabetic Shoes #1 ea 09/17/24 tiotropium bromide 18 mcg capsule 1 cap inhalation DAILY #90 caps 09/17/24 with inhalation device (Spiriva with HandiHaler) linagliptin 5 mg tablet (Tradjenta) See Rx Instructions .Route 11/04/24 .COMPLEX #90 tabs blood sugar diagnostic (FreeStyle #100 ea 12/08/24 Lite Strips) blood-glucose meter (FreeStyle #1 ea 12/08/24 Lite Meter kit) lancets 28 gauge (FreeStyle #100 ea 12/08/24 Lancets) famotidine 40 mg tablet See Rx Instructions .Route 01/28/25 .COMPLEX #90 tabs glimepiride 1 mg tablet 1 mg PO QAM #90 tabs 02/24/25 flash glucose sensor (FreeStyle #6 ea 02/25/25 Omkar 14 Day Sensor kit) albuterol sulfate 90 mcg/actuation See Rx Instructions .Route 03/05/25 aerosol inhaler .COMPLEX #25.5 grams fluticasone 100 mcg-salmeterol 50 1 inh inhalation BID #180 ea 03/05/25 mcg/dose blistr powdr for inhalation (Wixela Inhub) Allergies Allergy/AdvReac Type Severity Reaction Status Date / Time morphine Allergy vomit Verified 03/16/25 03:40 exenatide (From [place]) AdvReac Intermediate gi upset Verified 03/16/25 03:40 General Stated Complaint: Chest Pain KAREN: 3 Review of Systems Narrative: see HPI Course Vital Signs Vital signs: Vital Signs Temperature 36.6 C 03/16/25 03:23 Pulse 55 L 03/16/25 03:23 Respiratory Rate 20 03/16/25 03:23 Blood Pressure 207/90 H 03/16/25 03:23 Pulse Oximetry 98 03/16/25 03:23 Temperature 36.6 C 03/16/25 03:23 Temperature Source Temporal Artery Scan 03/16/25 03:23 Pulse 55 L 03/16/25 03:23 Respiratory Rate 20 03/16/25 03:23 Blood Pressure 207/90 H 03/16/25 03:23 Blood Pressure Position Supine 03/16/25 03:23 Pulse Oximetry 98 03/16/25 03:23 Oxygen Delivery Method Nasal Cannula 03/16/25 03:23 Oxygen Flow Rate 0 03/16/25 03:23 Pain Level 0 03/16/25 03:23 Medical Decision Making 74yo F with hx DM, CKD, PVD, COPD on 2L home O2, CHF, HTN, lung cancer s/p lobectomy, presenting for chest pain. For the past 4-5 nights she has had dull substernal burning chest pain which resolves during the day, though she has been more SOB with exertion than she usually is. Pain is worse tonight than it has been over the past several nights so she called EMS; was given 325 of ASA and 1 SL nitro prior to arrival. Pain was beginning to resolve before EMS arrived, continued to improve after she got nitro, and that she currently has absolutely no pain. Hypertensive on arrival; initial BP 200's/ 90's was taken with small adult cuff on forearm as patient had refused upper arm cuff due to discomfort. BP taken with appropriate cuff 175/88. Vital signs otherwise reassuring. Would not treat as hypertensive emergency at this time. -EKG sinus tachycardia, appropriate intervals, no ST segment or T wave abnormalities to suggest occlusive IN. -Labs reviewed as below, CBC with no leukocytosis and borderline anemia (Hg 11.1), CMP with no actionable abnormalities and Cr at baseline on [facility] record review, VBG reassuring with mild hypercapnea consistent with COPD, lactate normal, coags normal, lipase not suggestive of pancreatitis, BNP elevated at ~3000 (6000 on most recent prior [facility] labs), initial troponin slightly elevated at 53. UA suggestive of infection (will treat initially with 1g IV ceftriaxone). On reassessment she remains chest pain free. BP 150/80; would not treat to decrease further. Does become SOB with minimal exertion (ambulating to bathroom) with desat to mid 80's on her home 2L NC. Repeat troponin uptrending to 140. She remains chest pain free. CT independently reviewed; no large saddle embolus or gallbladder wall thickening on my view, radiology read with no acute findings. Repeat EKG without dynamic changes (does have occasional PVCs more consistent with prior EKGs which had significant amount of ectopy). Overall more consistent with [id number] given timing of symptoms and UTI; will continue to treat UTI and hold off on heparin pending consultation with [facility] [place]. Discussed case with [facility] [place]; awaiting callback from [facility] [place] Signed out to [facility] manoj, plan to followup 0700 troponin, cardiology consult. Anticipate admission to [facility] for [id number] vs starting heparin gtt with transfer for ischemic eval pending cardiology reccs. IMPRESSION: 1. Unremarkable CTA chest and abdomen. 2. Changes of left pneumonectomy. No interval detrimental change in the appearance the lungs. 3. Cholelithiasis. Lab Data Lab results reviewed: Yes I reviewed the patient's lab results. Labs: 03/16/25 05:10 Urine - Reflex from Ua Urine Culture - Pending Laboratory Tests Range/Units 03/16/25 03/16/25 03/16/25 04:05 05:10 05:20 WBC (4.4-10.8) 10^3/uL 7.75 RBC (3.93-5.22) 10^6/uL 3.91 L Hgb (11.2-15.7) g/dL 11.1 L Hct (36.0-46.0) % 36.6 MCV (80-95) fL 94 MCH (27.0-33.0) pg 28.4 MCHC (32.0-36.0) % 30.3 L RDW (11.7-14.6) % 14.2 Plt Count (130-400) 10^3/uL 205 MPV (8.0-11.0) fL 11.1 H Immature Gran % % 0.4 Neutrophils % % 77.0 Lymphocytes % % 13.0 Monocytes % % 7.7 Eosinophils % % 1.3 Basophils % % 0.6 Nucleated RBC % (0.0-0.3) % 0.0 Absolute Neutrophils (1.2-6.7) 10^3/uL 5.96 Absolute Lymphocytes (1.2-3.4) 10^3/uL 1.01 L Absolute Monocytes (0.1-0.8) 10^3/uL 0.60 Absolute Eosinophils (0.0-0.7) 10^3/uL 0.10 Absolute Basophils (0.0-0.2) 10^3/uL 0.05 PT (9.1-11.1) sec 10.7 INR (0.9-1.1) 1.1 APTT (20.6-30.2) sec 24.6 VBG pH (7.31-7.41) 7.34 VBG pCO2 (41-51) mmHg 56 H VBG pO2 mmHg 32 VBG HCO3 (23-28) mmol/L 30 H VBG Total CO2 (24-29) mmol/L 28 VBG O2 Saturation % 55 VBG Base Excess (-2-3) mmol/L 4 H VBG Lactate (<or=2.0) mmol/L 1.1 Sodium (136-145) mmol/L 136 Potassium (3.5-5.1) mmol/L 3.7 Chloride (98-107) mmol/L 106 Carbon Dioxide (20.0-31.0) mmol/L 29.9 Anion Gap (3-11) mmol/L 0.1 L BUN (9-23) mg/dL 51 H Creatinine (0.55-1.02) mg/dL 1.75 H Est GFR (CKD-EPI 2020) (mL/min/1.73m2) 28.23 Glucose (74-106) mg/dL 241 H Calcium (8.3-10.6) mg/dL 9.1 Magnesium (1.6-2.6) mg/dL 2.3 Total Bilirubin (0.2-1.2) mg/dL 0.30 AST (<34) U/L 11 ALT (10-49) U/L 9 L Alkaline Phosphatase (46-116) U/L 134 H Troponin I (<35) ng/L 53 H* 140 H* NT-Pro-B Natriuret Pep (<300) pg/mL 3042 H Total Protein (5.7-8.2) g/dL 7.2 Albumin (3.4-5.0) g/dL 4.2 Lipase (<53) U/L 37 Urine Color (Yellow) Yellow Urine Clarity (Clear) Sl Cloudy Urine pH (5-8) 5.5 Ur Specific [place] (1.005-1.025) 1.015 Urine Protein (Neg-Trace) mg/dL >=300 H Urine Ketones (Negative) mg/dL Negative Urine Blood (Negative) Small H Urine Nitrite (Negative) Negative Urine Bilirubin (Negative) Negative Urine Urobilinogen (Up to 0.2) mg/dL 0.2 Ur Leukocyte Esterase (Negative) Moderate H Urine RBC (0-2) HPF 3-5 H Urine WBC (0-5) HPF >50 H Ur Epithelial Cells (Negative) HPF Few Urine Crystals (Negative) HPF Negative Urine Bacteria (Negative) HPF Moderate Urine Casts (Negative) LPF Negative Urine Mucus (Negative) Moderate Ur Culture Indicated? Yes Urine Glucose (Negative) mg/dL Negative Quality:SDOH Health Related Social Needs: Health related social needs inadequate housing transpo insecurity lonely/isolated Health related social needs details Pennie 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 Critical Care Time Critical Care Time Critical Care Time: Yes Total Critical Care Time: 32 Attestation: Due to a high probability of clinically significant, life threatening deterioration, the patient required my highest level of preparedness to intervene emergently and I personally spent this critical care time directly and personally managing the patient. This critical care time included obtaining a history; examining the patient; pulse oximetry; ordering and review of studies; arranging urgent treatment with development of a management plan; evaluation of patient's response to treatment; frequent reassessment; and, discussions with other providers. This critical care time was performed to assess and manage the high probability of imminent, life-threatening deterioration that could result in multi-organ failure. It was exclusive of separately billable procedures and treating other patients PFSH All Active Problems (Updated 03/16/25 @ 06:49 by Tameka Cook MD) Urinary tract infection (Acute) Myocardial infarct (Chronic) Diabetes mellitus with stage 4 chronic kidney disease (Acute) Gout (Chronic) PVD (peripheral vascular disease) (Chronic) Toe swelling (Acute) Former cigarette smoker (Acute) Chronic hypoxic respiratory failure (Acute) History of depression (Acute) Acute exacerbation of CHF (congestive heart failure) (Acute) Cor pulmonale, chronic (Acute) CKD (chronic kidney disease) stage 4, GFR 15-29 ml/min (Acute) Fall 2023 LUANN Anemia (Chronic) CHF (congestive heart failure) (Chronic) Respiratory failure (Acute) Acute and chronic respiratory failure with hypoxia (Acute) Ventricular trigeminy (Acute) Driving safety issue (Acute) When vertigo is active (she will need RCT as she cannot drive with active vertigo.) >> grounded when vertigo is active.. Vertigo (Acute) Per ER report in [place] Hypertrophic toenail (Acute) Does anyone make HV? [ ] Podiatry PRN Xeroderma (Acute) Hemoglobin A1c above reference range (Acute) Nocturnal polyuria (Acute) Postmenopausal estrogen deficiency (Chronic) Requesting DEXA scan At risk for osteoporosis (Acute) Hx smoking, PPI and prednisone use. Chronic obstructive lung disease (Acute 02/20/02) FEV1 0.98 (34%PRED, 58% FVC) FOLLOWING Left PNEUMONECTOMY; home O2 since lung surg 2003 Secondary anemia (Acute 01/20/05) Mild improvement, 08/2021 (11.9) .. Hx: due to chemotherapy; PERSISTS 11.5 (08/2015 [facility] 10.[address] [facility] [place]; also due to CKD Chronic kidney disease (Acute) stage 3. [facility] Denilson Rendon MD 05/19/18 Decreased stamina (Acute) Fatigue (Acute) Caregiver stress (Chronic) Son @ home, Psych Disorder affecting ADL, including worsening paranoia. Skin lesion of breast (Acute) Appears as shira kerat .. Actinic keratosis (Acute) 10/06/20 destruction of lesion, left cheek, left nasal lip, right paranasal, right nasal bridge Diabetes mellitus (Chronic) dx 06/2003, co-managed ; goal A1c <7.5; most labs at [facility] Confusing mix of meds with recent changes 2' Cr levels being affected. Appreciate re-eval, along with diet review by Latoya! 12/13/17 ik Met with Nephro ([facility]), glad of no microhematuria .. meds and diet reviewed, trialing mild changes, d/c glimepuride. Diabetes mellitus type 2, uncontrolled (Acute 04/09/17) dx 06/2003, co-managed ; goal A1c <7.5; most labs at [facility] Type 2 diabetes mellitus with stage 3 chronic kidney disease, with long-term current use of insulin (Acute) [facility] [place], goal A1c < 7.5 .. 6.8 today (June 2017)! .. down from 8/7.6/8.2 in 2017. Cr 1.42 03/2017, 1.65 (07/17/17). Apr 2017 [facility] [place]o note mentions Nephro referral, placing per 07/17/16 lab results. Stressful life events affecting family and household (Acute) Counseling on health promotion and disease prevention (Acute) Asthma (Acute 05/15/11) Oxygen desaturation (Chronic 03/2004) Family history of colon cancer (Acute 05/15/11) Stasis dermatitis (Acute 05/12/02) Hx of pneumonectomy (Chronic 03/2004) Left lung removed, sent home with oxygen Vitamin D deficiency (Acute 12/26/10) Osteoarthritis (Acute 01/12/10) mild R hip on x-ray/clinical Obesity (Acute 05/12/02) Good weight loss, 290 today .. down from 311 last year. Hyperlipidemia (Acute 08/21/03) Gastroesophageal reflux disease (Acute 05/19/05) CHRONIC PRILOSEC OTC Essential hypertension (Chronic 09/14/03) Hx elevatd DBP, but she monitors closely. Meds tolerated. Low, but asympto, BP today, 01/29/18. Low normal/baseline, 07/2018. ik Medical History Lung cancer Adenocarcinoma of lung (03/22/04) Smoker (05/15/11) QUIT? Renal insufficiency (2017) Seeing Nephro; improved. Surgical History pneumonectomy (04/20/04) Left, [facility] Tonsillectomy and adenoidectomy (03/02/10) Extraction of cataract (~01/2015) [facility] Family History Mother , stroke, pneumonia at age 82. Personal history of malignant neoplasm Father , suicide at age 75. No problems noted. Sister Age: 73 No problems noted. Brother , bowel obstruction at age 46. No problems noted. Social History Smoking/Tobacco Use Status: Former Tobacco Use Smoking risk assessment performed?: Yes Alcohol Intake: former Year quit: 1990 Drug use: Never Substance use type: does not use Household members: children Housing: house Number of Children: 2 number of grandchildren: 1 Communication Needs: None What is your relationship status?: Panel score (0-1 are the most socially isolated patients): 0 What type of physical activity do you participate in: none Seatbelt use: always Drive intox or ride w/intox semi truck driver: No Working smoke detector in home: Yes Carbon monox detector in home: Yes Do you feel safe at home: Yes Do you feel safe in your relationship?: Yes
--- NOTE | 2025-03-16 03:56 | DI.CT_ITS ---
Exam(s) CT CHEST PE ABD PELVIS W EXAM: CT CHEST PE ABD PELVIS W CLINICAL HISTORY: chest pain, increased O2 requirement, epigastric pain. TECHNIQUE: Imaging Protocol: Axial computed tomography images with coronal and sagittal reformatted images were created and reviewed. Computer aided detection (CAD) was utilized. CONTRAST MATERIAL: Intravenous: Omnipaque 350 Contrast volume:85 ml Oral: no COMPARISON: CT CT CHEST PE CTA from 01/10/2024 FINDINGS: CHEST: Pulmonary parenchyma: Status post left pneumonectomy with stable mediastinal shift toward the left. The right lung shows no consolidation or dominant measurable mass. Stable 3 millimeter nodule in the right lower lobe. Tracheobronchial tree: No bronchiectasis. No mucous plugging.No bronchial wall thickening. Pleura: Stable appearance small amount of loculated fluid posteriorly in the left chest. No pneumothorax. Mediastinum: Within normal limits. Pulmonary arteries: No visible emboli. Cardiovascular: The heart is mildly enlarged. There are coronary artery calcifications. No pericardial effusion. Thoracic aorta non-dilated. Bones: Degenerative changes in the spine. No lytic or blastic lesions. No compression fractures. Soft tissues: Unremarkable. ABDOMEN and PELVIS: Liver: Normal density. No suspicious mass. Gallbladder and biliary tract: A few small stones are noted in the dependent portion of the gallbladder. No evidence of wall thickening. No biliary dilatation. Pancreas: Normal density, no abnormal calcifications or inflammatory process. Spleen: Normal. Kidneys: Normal size, contour and axis. No radiodense stones. No obstructive uropathy. Simple cyst lower pole of the left kidney. No follow-up per is recommended. No suspicious masses seen. Adrenal glands: No masses seen. Aorta: Abdominal portion non-dilated. Lymph nodes: Within normal limits. Soft tissues: Unremarkable. Bladder: Unremarkable. Bowel: Diverticulum of the descending duodenum, unchanged in appearance. No obstruction or bowel wall thickening. The appendix appears normal. Increased stool in the rectum. Otherwise normal quantity of stool. Mild diverticulosis. Peritoneal cavity: No ascites. No focal collection. No mesenteric inflammatory response. No free air. Bones: Degenerative changes of the hips, right greater than left. Degenerative changes in the lumbar spine. No compression fractures. Reproductive organs: Unremarkable for age. IMPRESSION: No evidence of pulmonary emboli. Status post left pneumonectomy with stable appearance. Right lung shows no acute abnormality. No acute abnormality in the abdomen or pelvis. The preliminary [facility] report was reviewed. RADIATION DOSE DELIVERED: Total DLP DATA REPOSITORY: All CT scans at this facility are submitted to the National Radiology Data Registry (NRDR) Dose Index Registry (DIR) with the [employer] (ACR). RADIATION OPTIMIZATION: All CT scans at this facility use at least one of these dose optimization techniques: automated exposure control; mA and/or kV adjustment per patient size (includes targeted exams where dose is matched to clinical indication); or iterative reconstruction.
[2025-03-16 04:09] LABS: BE (Venous) 4 mmol/L (-2-3); HCO3 (Venous) 30 mmol/L (23-28); O2 Sat (Venous) 55 %; TCO2 (Venous) 28 mmol/L (24-29); pCO2 (Venous) 56 mmHg (41-51); pO2 (Venous) 32 mmHg
[2025-03-16 04:12] LABS: Abs Immature Grans 0.03 10^3/uL (0.0-0.06); HCT 36.6 % (36.0-46.0); HGB 11.1 g/dL (11.2-15.7); Immature Grans % 0.4 %; MCH 28.4 pg (27.0-33.0); MCHC 30.3 % (32.0-36.0); MCV 94 fL (80-95); MPV 11.1 fL (8.0-11.0); Platelet Count 205 10^3/uL (130-400); RBC 3.91 10^6/uL (3.93-5.22); RDW 14.2 % (11.7-14.6); RDW-SD 48.8 fL; WBC 7.75 10^3/uL (4.4-10.8)
[2025-03-16] MEDS: Omnipaque 350 MG/ML 100 ML BTL IJ (04:23)
[2025-03-16] MEDS: Normal Saline - Diluent 50 ML VIAL IJ (04:24)
[2025-03-16] MEDS: Normal Saline Flush 10 ML SYR IVP (04:24)
[2025-03-16 04:28] LABS: INR 1.1 (0.9-1.1); PTT Activated 24.6 sec (20.6-30.2); Prothrombin Time 10.7 sec (9.1-11.1)
[2025-03-16 04:31] LABS: Lipase 37 U/L (<53); Magnesium 2.3 mg/dL (1.6-2.6)
[2025-03-16 04:33] LABS: ALT 9 U/L (10-49); AST 11 U/L (<34); Albumin 4.2 g/dL (3.4-5.0); Alkaline Phosphatase 134 U/L (46-116); Anion Gap 0.1 mmol/L (3-11); BUN 51 mg/dL (9-23); Bilirubin, Total 0.30 mg/dL (0.2-1.2); CO2 29.9 mmol/L (20.0-31.0); Calcium 9.1 mg/dL (8.3-10.6); Chloride 106 mmol/L (98-107); Glucose 241 mg/dL (74-106); Potassium 3.7 mmol/L (3.5-5.1); Sodium 136 mmol/L (136-145); Total Protein 7.2 g/dL (5.7-8.2)
[2025-03-16 04:51] LABS: Troponin I 53 ng/L (<35)
[2025-03-16 05:33] LABS: Glucose Negative (Negative)
[2025-03-16 05:41] LABS: C & S Indicated? Yes; WBC >50 HPF (0-5)
[2025-03-16 06:05] LABS: Troponin I 140 ng/L (<35)
--- NOTE | 2025-03-16 06:15 | RT.EKG_ITS ---
APPROVED REPORT Exam: Resting ECG Reason for Exam: chest pain Patient Location: E HR:95 bpm ECG Measurements Heart Rate 95 AXIS WY 168 P 92 QRSd 98 QRS 83 QT 367 T 198 QTc 463 Conclusion Sinus rhythm...normal P axis, V-rate 60- 99 Multiple ventricular premature complexes...V complexes w/ short R-R intervls Low voltage, precordial leads...precordial leads <1.0mV Nonspecific T abnormalities, lateral leads...T <-0.10mV, I aVL V5 V6 appropraite intervals no ST segment or T wave abnormalities to suggest occlusive IN
--- NOTE | 2025-03-16 06:22 | DI.[facility]_ITS ---
PROCEDURE INFORMATION: Exam: CTA Chest With Contrast CTA Abdomen With Contrast Exam date and time: 03/16/2025 4:23 AM Age: 74 years old Clinical indication: Abdominal pain; Prior surgery; Surgery date: 6+ months; Surgery type: Pneumonectomy; Chest pain, increased o2 requirement, epigastric pain TECHNIQUE: Imaging protocol: Computed tomographic angiography of the chest with contrast. Exam focused on the arteries. Computed tomographic angiography of the abdomen with contrast. Exam focused on the arteries. 3D rendering (Not supervised by radiologist): MIP and/or 3D reconstructed images were created by the technologist. Radiation optimization: All CT scans at this facility use at least one of these dose optimization techniques: automated exposure control; mA and/or kV adjustment per patient size (includes targeted exams where dose is matched to clinical indication); or iterative reconstruction. Contrast material: OMNIPAQUE 350; Contrast volume: 85 ml; Contrast route: INTRAVENOUS (IV); COMPARISON: CT CHEST PE CTA 01/10/2024 2:33 PM FINDINGS: VASCULATURE: Pulmonary arteries: Normal. No pulmonary emboli. Aorta: No aortic aneurysm. No aortic dissection. Celiac and mesenteric arteries: No occlusion or significant stenosis. Renal arteries: No occlusion or significant stenosis. CHEST: Lungs: Changes of left pneumonectomy. There is a leftward shift of the mediastinum, stable. The right lung is well expanded and clear. There is a stable 0.3 cm soft tissue density pulmonary nodule in the right lower lobe. Pleural spaces: Unremarkable. No pneumothorax. No pleural effusion. Heart: Unremarkable. No cardiomegaly. No pericardial effusion. ABDOMEN AND PELVIS: Liver: No mass. Gallbladder and biliary ducts: Cholelithiasis. No ductal dilation. Pancreas: Unremarkable. No mass. No ductal dilation. Spleen: Unremarkable. No splenomegaly. Adrenal glands: Unremarkable. No mass. Kidneys: Unremarkable kidneys. No solid mass. No hydronephrosis. Left simple renal cyst. Stomach and bowel: Unremarkable. No obstruction. No mucosal thickening. Intraperitoneal space: Unremarkable. No free air. No significant fluid collection. Lymph nodes: Unremarkable. No enlarged lymph nodes. Bones/joints: Unremarkable. No acute fracture. Soft tissues: Unremarkable. IMPRESSION: 1. Unremarkable CTA chest and abdomen. 2. Changes of left pneumonectomy. No interval detrimental change in the appearance the lungs. 3. Cholelithiasis. Dictated and Authenticated by: Pradeep Simmons MD. Orderin Joyce English MD
[2025-03-16] MEDS: cefTRIAXone 1 GM/50 ML BAG IVPB (06:32)
[2025-03-16 07:39] LABS: Troponin I 293 ng/L (<35)
[2025-03-16] MEDS: Atorvastatin 40 MG TAB 80 MG PO (09:17)
[2025-03-16] MEDS: Heparin in 0.45% NaCl 25,000 UNIT/250 ML BAG 10 UNIT IVINF (09:23)
[2025-03-16] MEDS: Ondansetron 4 MG/2 ML VIAL (09:30)
--- NOTE | 2025-03-16 09:46 | HPE_ITS ---
Date of service: 03/16/25 Time of Service: 09:00 Assessment and Plan Assessment and plan (1) NSTEMI (non-ST elevated myocardial infarction): Status: Acute Assessment and plan: EKG with bigemity and multiple PVCs Troponin rising since arrival, trend 53->140->293->767 Admit to [facility] with telemetry Heparin drip Accepted at [facility] for transfer when bed available, likely Mar 17 (2) Type 2 diabetes mellitus with stage 3 chronic kidney disease, with long-term current use of insulin: Status: Chronic Assessment and plan: June 2024 A1C was 9.0 Home regimen glimepiride 1 mg daily, degludec 19u HS, semaglutide 0.25 weekly, all held Will give basal insulin 10u at bedtime with mealtime correctional Creatinine 1.75, baseline appears to be 1.4 - 1.5, will repeat AM BMP (3) Chronic obstructive lung disease: Status: Chronic Assessment and plan: Patient at pul clinic Hold home regimen PRN duonebs (4) Hx of pneumonectomy: Status: Chronic Assessment and plan: History of lung cancer and apparent removal of both left lobes O2 dependent since pneumonectomy (5) Gout: Status: Chronic Assessment and plan: Continue home allopurinol (6) Essential hypertension: Status: Chronic Assessment and plan: Hold home HCTZ Continue home lisinopril History of Present Illness History of Present Illness Chief Complaint: chest pain Narrative: Pennie Rodriguez is a 74 year old woman presenting March 16 with 4 days of chest pain now unable to sleep with intolerable pain. Patient has history of lung cancer, left lung lobectomy and is O2 dependent at baseline. She describes the chest pain as burning, located at the bottom of her sternum, only occurring at night. She reports that she is more short of breath than her usual. She denies recent illness, no nausea/vomiting/diarrhea, no abdominal pain. On interview her pain had completely resolved since she was given nitroglycerin by EMS. EMS gave aspirin and nitroglycerin. In the ED, HR 55, BP 207/90, vitals otherwise unremarkable. Initial EKG with nonspecific T abnormalities. Initial troponin elevated 53, rising to 293 after 3 hours. Creatinine 1.75, above baseline of 1.4. Glucose 241. BNP 3042. High proteinuria. CT chest/abdomen/pelvis showed no PE, no acute pathology, left pneumonectomy. [facility] cardiology was consulted, advising NSTEMI treatment with heparin drip, statin and aspirin, and transfer when bed available. PMH includes lung cancer s/p left lobe lobectomy now O2 dependent, COPD, GERD, DM on insulin, CKD, gout, CHF, PVD PFSH All Active Problems (Updated 03/16/25 @ 17:40 by Alberto Monsalve MD) NSTEMI (non-ST elevated myocardial infarction) (Acute) Urinary tract infection (Acute) Myocardial infarct (Chronic) Diabetes mellitus with stage 4 chronic kidney disease (Acute) Gout (Chronic) PVD (peripheral vascular disease) (Chronic) Toe swelling (Acute) Former cigarette smoker (Acute) Chronic hypoxic respiratory failure (Acute) History of depression (Acute) Acute exacerbation of CHF (congestive heart failure) (Acute) Cor pulmonale, chronic (Acute) CKD (chronic kidney disease) stage 4, GFR 15-29 ml/min (Acute) Fall 2023 LUANN Anemia (Chronic) CHF (congestive heart failure) (Chronic) Respiratory failure (Acute) Acute and chronic respiratory failure with hypoxia (Acute) Ventricular trigeminy (Acute) Driving safety issue (Acute) When vertigo is active (she will need RCT as she cannot drive with active vertigo.) >> grounded when vertigo is active.. Vertigo (Acute) Per ER report in [place] Hypertrophic toenail (Acute) Does anyone make HV? [ ] Podiatry PRN Xeroderma (Acute) Hemoglobin A1c above reference range (Acute) Nocturnal polyuria (Acute) Postmenopausal estrogen deficiency (Chronic) Requesting DEXA scan At risk for osteoporosis (Acute) Hx smoking, PPI and prednisone use. Chronic obstructive lung disease (Chronic 02/20/02) FEV1 0.98 (34%PRED, 58% FVC) FOLLOWING Left PNEUMONECTOMY; home O2 since lung surg 2003 Secondary anemia (Acute 01/20/05) Mild improvement, 08/2021 (11.9) .. Hx: due to chemotherapy; PERSISTS 11.5 (08/2015 [facility]); 10.8 2017 [facility]; also due to CKD Chronic kidney disease (Acute) stage 3. [facility] Denilson Rendon MD 05/19/18 Decreased stamina (Acute) Fatigue (Acute) Caregiver stress (Chronic) Son @ home, Psych Disorder affecting ADL, including worsening paranoia. Skin lesion of breast (Acute) Appears as shira kerat .. Actinic keratosis (Acute) 10/06/20 destruction of lesion, left cheek, left nasal lip, right paranasal, right nasal bridge Diabetes mellitus (Chronic) dx 06/2003, co-managed ; goal A1c <7.5; most labs at [facility] Confusing mix of meds with recent changes 2' Cr levels being affected. Appreciate re-eval, along with diet review by Latoya! 12/13/17 ik Met with Nephro ([facility]), glad of no microhematuria .. meds and diet reviewed, trialing mild changes, d/c glimepuride. Diabetes mellitus type 2, uncontrolled (Acute 04/09/17) dx 06/2003, co-managed ; goal A1c <7.5; most labs at [facility] Type 2 diabetes mellitus with stage 3 chronic kidney disease, with long-term current use of insulin (Chronic) [facility], goal A1c < 7.5 .. 6.8 today (June 2017)! .. down from 8/7.6/8.2 in 2017. Cr 1.42 03/2017, 1.65 (07/17/17). Apr 2017 [facility] Endo note mentions Nephro referral, placing per 07/17/16 lab results. Stressful life events affecting family and household (Acute) Counseling on health promotion and disease prevention (Acute) Asthma (Acute 05/15/11) Oxygen desaturation (Chronic 03/2004) Family history of colon cancer (Acute 05/15/11) Stasis dermatitis (Acute 05/12/02) Hx of pneumonectomy (Chronic 03/2004) Left lung removed, sent home with oxygen Vitamin D deficiency (Acute 12/26/10) Osteoarthritis (Acute 01/12/10) mild R hip on x-ray/clinical Obesity (Acute 05/12/02) Good weight loss, 290 today .. down from 311 last year. Hyperlipidemia (Acute 08/21/03) Gastroesophageal reflux disease (Acute 05/19/05) CHRONIC PRILOSEC OTC Essential hypertension (Chronic 09/14/03) Hx elevatd DBP, but she monitors closely. Meds tolerated. Low, but asympto, BP today, 01/29/18. Low normal/baseline, 07/2018. ik Medical History Lung cancer Adenocarcinoma of lung (03/22/04) Smoker (05/15/11) QUIT? Renal insufficiency (2018) Seeing Nephro; improved. Surgical History pneumonectomy (04/20/04) Left, [facility] Tonsillectomy and adenoidectomy (03/02/10) Extraction of cataract (~01/2015) [facility] Family History Mother , stroke, pneumonia at age 82. Personal history of malignant neoplasm Father , suicide at age 75. No problems noted. Sister Age: 73 No problems noted. Brother , bowel obstruction at age 46. No problems noted. Social History Smoking/Tobacco Use Status: Former Tobacco Use Smoking risk assessment performed?: Yes Alcohol Intake: former quit: 1990 Drug use: Never Substance use type: does not use Household members: children Housing: house Number of Children: 2 number of grandchildren: 1 Communication Needs: None What is your relationship status?: Panel score (0-1 are the most socially isolated patients): 0 What type of physical activity do you participate in: none Seatbelt use: always Drive intox or ride w/intox cab driver: No Working smoke detector in home: Yes Carbon monox detector in home: Yes Do you feel safe at home: Yes Do you feel safe in your relationship?: Yes Meds Allergies and Home Medications Allergies Allergy/AdvReac Type Severity Reaction Status Date / Time morphine Allergy vomit Verified 03/16/25 03:40 exenatide (From [place]) AdvReac Intermediate gi upset Verified 03/16/25 03:40 Home Medications ?Medication ?Instructions ?Recorded ?Confirmed ?Type cyanocobalamin (vitamin B-12) 1,000 mcg PO DAILY 06/2003/16/25 History 1,000 mcg tablet (Vitamin B-12) docusate sodium 100 mg capsule 100 mg PO PRN 06/20/12 03/16/25 History (Colace) hydrocortisone 1 %-pramoxine 1 % 10 gm RC PRN #1 tube 10/19/14 03/16/25 History rectal foam (Proctofoam HC) aspirin 81 mg tablet,delayed 81 mg PO DAILY 01/17/16 1 05/16/24 History release (Aspir-) Oxygen #1 ea 06/20/18 12/14/24 Hist ory Nebulizer #1 ea 05/29/19 12/14/24 Rx magnesium oxide 400 mg PO DAILY 10/04/20 History cholecalciferol (vitamin D3) 25 25 mcg PO DAILY 03/16/25 History mcg (1,000 unit) capsule nystatin 100,000 unit/gram topical 1 applic topical BI D #30 grams 11/25/20 03/16/25 Rx ointment aluminum hydrox-magnesium carb 160 4 tab PO HS PRN 03/16/25 History mg-105 mg chewable tablet (Gaviscon Extra Strength) fluticasone propionate 50 2 spray NS DAILY PRN nasal 0 09/14/21 03/16/25 Rx mcg/actuation nasal congestion #16 grams spray,suspension ipratropium 0.5 mg-albuterol 3 mg 3 ml inhalation Q6H PRN wheezing 06/24/24 03/16/25 Rx (2.5 mg base)/3 mL nebulization or SOB #180 mL soln atorvastatin 40 mg tablet See Rx Instructions .Route 0 07/23/24 03/16/25 Rx .COMPLEX #90 tabs lisinopril 5 mg tablet 5 mg PO DAILY #90 tabs 07/2303/16/25 Rx pen needle, diabetic 31 gauge x #300 ea 08/03/2412/14 Rx 09/04 (Comfort EZ Pen [place]) insulin degludec 100 unit/mL (3 19 unit (0.19 mL) subc ut HS #15 mL 08/24/24 03/16/25 Rx mL) subcutaneous pen (Tresiba FlexTouch U-100 insulin) insulin glulisine U-100 100 See Rx Instructions subcut BID #15 08/24/24 03/16/25 Rx unit/mL subcutaneous pen (Apidra mL SoloStar U-100 Insulin) allopurinol 100 mg tablet 100 mg PO DAILY 08/25/24 History hydrochlorothiazide 12.5 mg tablet 12.5 mg PO DAILY #9 0 tab-caps 08/25/24 03/16/25 Rx Diabetic Shoes #1 ea 09/17/24 12/14/24 Rx tiotropium bromide 18 mcg capsule 1 cap inhalation MARIELA LY #90 caps 09/17/24 03/16/25 Rx with inhalation device (Spiriva with HandiHaler) linagliptin 5 mg tablet (Tradjenta) See Rx Instruction s .Route 11/04/24 03/16/25 Rx .COMPLEX #90 tabs semaglutide 0.25 mg or 0.5 mg (2 0.25 mg subcut QWEEK 11/13/24 03/16/25 History mg/3 mL) subcutaneous pen injector blood sugar diagnostic (FreeStyle #100 ea 12/08/24 Rx Lite Strips) blood-glucose meter (FreeStyle #1 ea 12/08/24 03/16/25 Rx Lite Meter kit) lancets 28 gauge (FreeStyle #100 ea 12/08/24 12/14/24 Rx Lancets) famotidine 40 mg tablet See Rx Instructions .Route 1 03/16/25 Rx .COMPLEX #90 tabs glimepiride 1 mg tablet 1 mg PO QAM #90 tabs 5 03/16/25 Rx flash glucose sensor (FreeStyle #6 ea 02/25/25 Rx Omkar 14 Day Sensor kit) albuterol sulfate 90 mcg/actuation See Rx Instructions .Route 03/05/25 03/16/25 Rx aerosol inhaler .COMPLEX #25.5 grams fluticasone 100 mcg-salmeterol 50 1 inh inhalation BID #180 ea 03/05/25 03/16/25 Rx mcg/dose blistr powdr for inhalation (Wixela Inhub) Exam Narrative Exam Narrative: General: This is a pleasant woman in no distress HEENT: Normocephalic, atraumatic CV: RRR Resp: CTAB on the right, absent breath sounds on the left Abd: soft, NTND MSK: voluntary motion x4 Neuro: awake, alert, no focal deficits Results Labs 03/16/25 04:05 03/16/25 04:05 Labs: Laboratory Results - last 24 hr 03/16/25 03/16/25 03/16/25 04:05 05:10 05:20 WBC 7.75 RBC 3.91 L Hgb 11.1 L Hct 36.6 MCV 94 MCH 28.4 MCHC 30.3 L RDW 14.2 Plt Count 205 MPV 11.1 H Immature Gran % 0.4 Neutrophils % 77.0 Lymphocytes % 13.0 Monocytes % 7.7 Eosinophils % 1.3 Basophils % 0.6 Nucleated RBC % 0.0 Absolute Neutrophils 5.96 Absolute Lymphocytes 1.01 L Absolute Monocytes 0.60 Absolute Eosinophils 0.10 Absolute Basophils 0.05 PT 10.7 INR 1.1 APTT 24.6 VBG pH 7.34 VBG pCO2 56 H VBG pO2 32 VBG HCO3 30 H VBG Total CO2 28 VBG O2 Saturation 55 VBG Base Excess 4 H VBG Lactate 1.1 Sodium 136 Potassium 3.7 Chloride 106 Carbon Dioxide 29.9 Anion Gap 0.1 L BUN 51 H Creatinine 1.75 H Est GFR (CKD-EPI 2020) 28.23 Glucose 241 H Calcium 9.1 Magnesium 2.3 Total Bilirubin 0.30 AST 11 ALT 9 L Alkaline Phosphatase 134 H Troponin I 53 H* 140 H* NT-Pro-B Natriuret Pep 3042 H Total Protein 7.2 Albumin 4.2 Lipase 37 Urine Color Yellow Urine Clarity Sl Cloudy Urine pH 5.5 Ur Specific [place] 1.015 Urine Protein >=300 H Urine Ketones Negative Urine Blood Small H Urine Nitrite Negative Urine Bilirubin Negative Urine Urobilinogen 0.2 Ur Leukocyte Esterase Moderate H Urine RBC 3-5 H Urine WBC >50 H Ur Epithelial Cells Few Urine Crystals Negative Urine Bacteria Moderate Urine Casts Negative Urine Mucus Moderate Ur Culture Indicated? Yes Urine Glucose Negative 03/16/25 07:07 WBC RBC Hgb Hct MCV MCH MCHC RDW Plt Count MPV Immature Gran % Neutrophils % Lymphocytes % Monocytes % Eosinophils % Basophils % Nucleated RBC % Absolute Neutrophils Absolute Lymphocytes Absolute Monocytes Absolute Eosinophils Absolute Basophils PT INR APTT VBG pH VBG pCO2 VBG pO2 VBG HCO3 VBG Total CO2 VBG O2 Saturation VBG Base Excess VBG Lactate Sodium Potassium Chloride Carbon Dioxide Anion Gap BUN Creatinine Est GFR (CKD-EPI 2020) Glucose Calcium Magnesium Total Bilirubin AST ALT Alkaline Phosphatase Troponin I 293 H* NT-Pro-B Natriuret Pep Total Protein Albumin Lipase Urine Color Urine Clarity Urine pH Ur Specific [place] Urine Protein Urine Ketones Urine Blood Urine Nitrite Urine Bilirubin Urine Urobilinogen Ur Leukocyte Esterase Urine RBC Urine WBC Ur Epithelial Cells Urine Crystals Urine Bacteria Urine Casts Urine Mucus Ur Culture Indicated? Urine Glucose Last Vital Signs Temp 36.6 C 03/16/25 03:23 Pulse 91 H 03/16/25 06:00 Resp 17 03/16/25 06:00 BP 150/80 H 03/16/25 05:50 Pulse Ox 99 03/16/25 06:00 VTE Prohylaxis Risk Level: Moderate/High Risk Contraindications: None Prophylaxis: Patient anticoagulated Time Spent Time spent with Patient: 40-54 minutes Time was spent: preparing to see the patient(eg.review tests), obtaining and/or reviewing separately otained hiistory, ordering medications,tests, procedures, referring, communicating with other health field care advocate, indepentently interpreting results, counseling the patient and care coordination
--- NOTE | 2025-03-16 11:12 | W.PC.ACHO ---
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, uses O2 at home to walk, EMS gave 4 ASA, 1 NTG, currently pain free Medical / Surgical History (Last Reviewed 09/10/24 @ 11:28 by Kalie Tinoco DPM) Lung cancer Adenocarcinoma of lung (03/22/04) Smoker (05/15/11) Renal insufficiency (2018) (Last Reviewed 09/10/24 @ 11:28 by Kalie Tinoco DPM) pneumonectomy (04/20/04) Tonsillectomy and adenoidectomy (03/02/10) Extraction of cataract (~01/2015) Most Recent Vital Signs Temperature 36.6 C 03/16/25 03:23 Temperature Source Temporal Artery Scan 03/16/25 03:23 Pulse 75 03/16/25 10:18 Pulse 99 H 03/16/25 10:18 Respiratory Rate 19 03/16/25 10:18 Respiratory Effort Normal, Non-Labored 03/16/25 04:08 Respiratory Depth Normal 03/16/25 04:08 Respiratory Pattern Normal 03/16/25 04:08 Blood Pressure 143/98 H 03/16/25 10:18 Blood Pressure Mean 111 03/16/25 10:18 Blood Pressure Position Supine 03/16/25 03:23 Pulse Oximetry 100 03/16/25 10:18 Oxygen Delivery Method Nasal Cannula 03/16/25 03:23 Oxygen Flow Rate 0 03/16/25 03:23 Pain Level 0 03/16/25 03:23 Allergies morphine Allergy (Verified 03/16/25 03:40) vomit exenatide (From [place]) Adverse Reaction (Intermediate, Verified 03/16/25 03:40) gi upset WICKED STOMACH CRAMPS, VOMITING Precautions Isolation Standard precaution 03/16/25 04:08 Active Medications Generic Name Dose Route Start Last Admin Trade Name Freq PRN Reason Stop Dose Admin Ceftriaxone Sodium/Dextrose 1 gm in 50 mls @ 100 mls/hr 03/16/25 06:15 03/16/25 06:32 Rocephin IVPB 100 mls/hr Q24H [place] Administration Heparin Sodium/Sodium Chloride 25,000 unit in 250 mls @ 10 mls/hr 03/16/25 08:00 03/16/25 09:23 IVINF 1,000 units/hr INFUSION [place] 10 mls/hr Protocol Administration 1,000 UNITS/HR Iohexol 100 ml 03/16/25 04:30 03/16/25 04:23 Omnipaque 350 Mg/Ml 100 Ml Btl IJ 04/15/25 23:59 85 ml DIRECTED [place] Administration Sodium Chloride 0 ml 03/16/25 04:22 03/16/25 04:24 Normal Saline Flush 10 Ml Syr IVP 10 ml PRN PRN Administration Sodium Chloride 50 ml 03/16/25 04:30 03/16/25 04:24 Normal Saline - Diluent 50 Ml Vial IJ 50 ml DIRECTED [place] Administration IV IV Catheter Type [Left Hand] Saline Lock IV Catheter Type [Right Diffusics Antecubital] IV Catheter Gauge [Left Hand] 20 IV Catheter Gauge [Right 20 Antecubital] Diet Orders Category Date Time Status Heart Healthy Eating [DIET] Nutrition 03/16/25 Lunch Active Nothing Per Oral [DIET] Nutrition 03/17/25 00:01 Ordered Diagnostics 03/16/25 03/16/25 03/16/25 Range/Units 11:44 07:07 05:20 WBC (4.4-10.8) 10^3/uL RBC (3.93-5.22) 10^6/uL Hgb (11.2-15.7) g/dL Hct (36.0-46.0) % MCV (80-95) fL MCH (27.0-33.0) pg MCHC (32.0-36.0) % RDW (11.7-14.6) % Plt Count (130-400) 10^3/uL MPV (8.0-11.0) fL Immature Gran % % Neutrophils % % Lymphocytes % % Monocytes % % Eosinophils % % Basophils % % Nucleated RBC % (0.0-0.3) % Absolute Neutrophils (1.2-6.7) 10^3/uL Absolute Lymphocytes (1.2-3.4) 10^3/uL Absolute Monocytes (0.1-0.8) 10^3/uL Absolute Eosinophils (0.0-0.7) 10^3/uL Absolute Basophils (0.0-0.2) 10^3/uL PT (9.1-11.1) sec INR (0.9-1.1) APTT (20.6-30.2) sec VBG pH (7.31-7.41) VBG pCO2 (41-51) mmHg VBG pO2 mmHg VBG HCO3 (23-28) mmol/L VBG Total CO2 (24-29) mmol/L VBG O2 Saturation % VBG Base Excess (-2-3) mmol/L VBG Lactate (<or=2.0) mmol/L Sodium (136-145) mmol/L Potassium (3.5-5.1) mmol/L Chloride (98-107) mmol/L Carbon Dioxide (20.0-31.0) mmol/L Anion Gap (3-11) mmol/L BUN (9-23) mg/dL Creatinine (0.55-1.02) mg/dL Est GFR (CKD-EPI 2020) (mL/min/1.73m2) Glucose (74-106) mg/dL Calcium (8.3-10.6) mg/dL Magnesium (1.6-2.6) mg/dL Total Bilirubin (0.2-1.2) mg/dL AST (<34) U/L ALT (10-49) U/L Alkaline Phosphatase (46-116) U/L Troponin I Pending 293 H* 140 H* (<35) ng/L NT-Pro-B Natriuret Pep (<300) pg/mL Total Protein (5.7-8.2) g/dL Albumin (3.4-5.0) g/dL Lipase (<53) U/L Urine Color (Yellow) Urine Clarity (Clear) Urine pH (5-8) Ur Specific Cisco (1.005-1.025) Urine Protein (Neg-Trace) mg/dL Urine Ketones (Negative) mg/dL Urine Blood (Negative) Urine Nitrite (Negative) Urine Bilirubin (Negative) Urine Urobilinogen (Up to 0.2) mg/dL Ur Leukocyte Esterase (Negative) Urine RBC (0-2) HPF Urine WBC (0-5) HPF Ur Epithelial Cells (Negative) HPF Urine Crystals (Negative) HPF Urine Bacteria (Negative) HPF Urine Casts (Negative) LPF Urine Mucus (Negative) Ur Culture Indicated? Urine Glucose (Negative) mg/dL 03/16/25 03/16/25 Range/Units 05:10 04:05 WBC 7.75 (4.4-10.8) 10^3/uL RBC 3.91 L (3.93-5.22) 10^6/uL Hgb 11.1 L (11.2-15.7) g/dL Hct 36.6 (36.0-46.0) % MCV 94 (80-95) fL MCH 28.4 (27.0-33.0) pg MCHC 30.3 L (32.0-36.0) % RDW 14.2 (11.7-14.6) % Plt Count 205 (130-400) 10^3/uL MPV 11.1 H (8.0-11.0) fL Immature Gran % 0.4 % Neutrophils % 77.0 % Lymphocytes % 13.0 % Monocytes % 7.7 % Eosinophils % 1.3 % Basophils % 0.6 % Nucleated RBC % 0.0 (0.0-0.3) % Absolute Neutrophils 5.96 (1.2-6.7) 10^3/uL Absolute Lymphocytes 1.01 L (1.2-3.4) 10^3/uL Absolute Monocytes 0.60 (0.1-0.8) 10^3/uL Absolute Eosinophils 0.10 (0.0-0.7) 10^3/uL Absolute Basophils 0.05 (0.0-0.2) 10^3/uL PT 10.7 (9.1-11.1) sec INR 1.1 (0.9-1.1) APTT 24.6 (20.6-30.2) sec VBG pH 7.34 (7.31-7.41) VBG pCO2 56 H (41-51) mmHg VBG pO2 32 mmHg VBG HCO3 30 H (23-28) mmol/L VBG Total CO2 28 (24-29) mmol/L VBG O2 Saturation 55 % VBG Base Excess 4 H (-2-3) mmol/L VBG Lactate 1.1 (<or=2.0) mmol/L Sodium 136 (136-145) mmol/L Potassium 3.7 (3.5-5.1) mmol/L Chloride 106 (98-107) mmol/L Carbon Dioxide 29.9 (20.0-31.0) mmol/L Anion Gap 0.1 L (3-11) mmol/L BUN 51 H (9-23) mg/dL Creatinine 1.75 H (0.55-1.02) mg/dL Est GFR (CKD-EPI 2020) 28.23 (mL/min/1.73m2) Glucose 241 H (74-106) mg/dL Calcium 9.1 (8.3-10.6) mg/dL Magnesium 2.3 (1.6-2.6) mg/dL Total Bilirubin 0.30 (0.2-1.2) mg/dL AST 11 (<34) U/L ALT 9 L (10-49) U/L Alkaline Phosphatase 134 H (46-116) U/L Troponin I 53 H* (<35) ng/L NT-Pro-B Natriuret Pep 3042 H (<300) pg/mL Total Protein 7.2 (5.7-8.2) g/dL Albumin 4.2 (3.4-5.0) g/dL Lipase 37 (<53) U/L Urine Color Yellow (Yellow) Urine Clarity Sl Cloudy (Clear) Urine pH 5.5 (5-8) Ur Specific Cisco 1.015 (1.005-1.025) Urine Protein >=300 H (Neg-Trace) mg/dL Urine Ketones Negative (Negative) mg/dL Urine Blood Small H (Negative) Urine Nitrite Negative (Negative) Urine Bilirubin Negative (Negative) Urine Urobilinogen 0.2 (Up to 0.2) mg/dL Ur Leukocyte Esterase Moderate H (Negative) Urine RBC 3-5 H (0-2) HPF Urine WBC >50 H (0-5) HPF Ur Epithelial Cells Few (Negative) HPF Urine Crystals Negative (Negative) HPF Urine Bacteria Moderate (Negative) HPF Urine Casts Negative (Negative) LPF Urine Mucus Moderate (Negative) Ur Culture Indicated? Yes Urine Glucose Negative (Negative) mg/dL 03/16/25 05:10 Urine Culture - Pending Urine - Reflex from [facility] [id number] Documentation Fingerstick Glucose Start: 03/16/25 03:44 Freq: Status: Complete Protocol: Activity Type Activity Date Activity User E-sign Co-sign Detail Recorded Client Recorded Date Recorded By Document 03/16/25 03:44 BKG DAEMON(3) [id number] 03/16/25 03:44 BKG DAEMON(4) Intake and Output - 24 Hour Total 03/16/25 03:21 thru 03/16/25 03:23 Weight 123.377 kg Falls Risk Assessment History of Falls No History 03/16/25 04:11 Contributing Factors No Factors 03/16/25 04:11 Ambulatory Aids Uses ambulatory device 03/16/25 04:11 Tubes/Lines With any additional score 03/16/25 04:11 Gait Evaluation No gait disturbance 03/16/25 04:11 Cognition No cognitive impairment 03/16/25 04:11 Fall Total Score 35 03/16/25 04:11 Level of Risk Moderate Risk 03/16/25 04:11 Attestation Statement: By documenting the first initial, last name, and credentials of the reporting nurse below, both parties acknowledge that all relevant information regarding the patient handoff has been communicated, and that all questions have been addressed to ensure continuity and safety of care. Additional Patient Information/Comments: pt remains on the heparin drip pt is alert and oriented x 4 sitting up in the chair telemetry in place Report Received From: Bobbi Mejia at 10:15am
--- NOTE | 2025-03-16 12:15 | RT.EKG_ITS ---
APPROVED REPORT Exam: Resting ECG Reason for Exam: NSTEMI status, troponin increasing Patient Location: I HR:97 bpm ECG Measurements Heart Rate 97 AXIS MA 159 P 70 QRSd 105 QRS 90 QT 374 T 242 QTc 475 Conclusion Sinus rhythm...normal P axis, V-rate 50- 99 Ventricular premature complex...V complex w/ short R-R interval Borderline right axis deviation...QRS axis ( 81, 90) Low voltage, precordial leads...precordial leads <1.0mV Abnormal T, consider ischemia, diffuse leads...T <-0.20mV, ant/lat/inf
--- NOTE | 2025-03-16 12:31 | NUR.NOTE ---
Nursing Note: At 11am pt received from the ER via stretcher pt alert and oriented x4 pt denies pain pt denies CP or SOB pt asssited to the chair pt has O2 2L in place VSS pt has Heparin drip running well in RT AC #18 G HL rate as per MD orders Appt recheck at 230pm pt had lunch tolerated well pt up to the BR with cane call petty at side safety maintained
[2025-03-16 12:35] LABS: Troponin I 767 ng/L (<35)
[2025-03-16] MEDS: Lisinopril 5 MG TAB PO (13:17)
[2025-03-16] MEDS: Insulin Aspart 300 UNITS/3 ML PEN SC ×3 (13:17→21:21)
--- NOTE | 2025-03-16 13:59 | NUR.NOTE ---
Nursing Note: After lunch ICU called requarding pts telemetry changes reported to have Multiple PVC's and bigeminy this was reported to the MD Ekg ordered NO changes Md also aware of increased Troponin pt denies SOB or CP heparin continues to run well recheck on APPT at 2:30pm call petty at side safety maintained
[2025-03-16 16:06] LABS: PTT Activated 55.5 sec (20.6-30.2)
[2025-03-16 18:36] LABS: Troponin I 777 ng/L (<35)
[2025-03-16] MEDS: Atorvastatin 40 MG TAB PO (20:00)
[2025-03-16] MEDS: Insulin Glargine 300 UNITS/3 ML PEN 10 UNITS SC (21:20)
[2025-03-16 22:51] LABS: PTT Activated 45.9 sec (20.6-30.2)
[2025-03-17] MEDS: Heparin in 0.45% NaCl 25,000 UNIT/250 ML BAG 12.5 UNIT IVINF (02:31)
[2025-03-17] MEDS: Normal Saline 1,000 ML 80 ML IV ×2 (02:55→16:07)
[2025-03-17 03:38] VITALS: BP 128/73; PULSE 79; RESP 18; TEMP 35.9; O2SAT 98
[2025-03-17] MEDS: Acetaminophen 325 MG TAB 650 MG PO ×2 (04:41→14:42)
[2025-03-17] MEDS: cefTRIAXone 1 GM/50 ML BAG IVPB (05:59)
[2025-03-17 06:34] VITALS: PULSE 88; RESP 18; O2SAT 99
[2025-03-17 06:39] LABS: HCT 34.7 % (36.0-46.0); HGB 10.4 g/dL (11.2-15.7); MCH 28.3 pg (27.0-33.0); MCHC 30.0 % (32.0-36.0); MCV 94 fL (80-95); MPV 11.3 fL (8.0-11.0); Platelet Count 189 10^3/uL (130-400); RBC 3.68 10^6/uL (3.93-5.22); RDW 14.3 % (11.7-14.6); RDW-SD 50.0 fL; WBC 6.03 10^3/uL (4.4-10.8)
[2025-03-17 06:56] LABS: Anion Gap 4.9 mmol/L (3-11); BUN 48 mg/dL (9-23); CO2 28.1 mmol/L (20.0-31.0); Calcium 9.0 mg/dL (8.3-10.6); Chloride 106 mmol/L (98-107); Glucose 164 mg/dL (74-106); Potassium 4.2 mmol/L (3.5-5.1); Sodium 139 mmol/L (136-145)
[2025-03-17 07:08] LABS: PTT Activated 76.6 sec (20.6-30.2)
[2025-03-17 07:13] LABS: Troponin I 435 ng/L (<35)
[2025-03-17 07:38] VITALS: BP 101/69; PULSE 85; RESP 16; TEMP 36.2; O2SAT 94
[2025-03-17 07:56] VITALS: O2SAT 92
--- NOTE | 2025-03-17 07:57 | DSE_ITS ---
Date of service: 03/17/25 Time of Service: 08:00 DS: Diagnosis Discharge Diagnosis (1) NSTEMI (non-ST elevated myocardial infarction): Status: Acute Asessment and Plan: EKG with bigeminy and multiple PVCs, no significant changes on repeat EKGs Troponin tapered since arrival, trend 53->140->293->767->777->435 Admit to [facility] with telemetry Heparin drip Accepted at [facility] for transfer when bed available, likely Mar 17 (2) Type 2 diabetes mellitus with stage 3 chronic kidney disease, with long-term current use of insulin: Status: Chronic Asessment and Plan: June 2024 A1C was 9.0 Home regimen glimepiride 1 mg daily, degludec 19u HS, semaglutide 0.25 weekly, all held Will give basal insulin 10u at bedtime with mealtime correctional Creatinine 1.75, baseline appears to be 1.4 - 1.5: effectively unchanged on Mar 17, creatinine 1.79 (3) Chronic obstructive lung disease: Status: Chronic Asessment and Plan: Patient at pulm clinic Hold home regimen PRN duonebs (4) Hx of pneumonectomy: Status: Chronic Asessment and Plan: History of lung cancer and apparent removal of both left lobes O2 dependent since pneumonectomy (5) Gout: Status: Chronic Asessment and Plan: Continue home allopurinol (6) Essential hypertension: Status: Chronic Asessment and Plan: Hold home HCTZ Continue home lisinopril Discharge Plan Disposition Patient Disposition: Transfer-Acute Inpatient Care Specific Acute In Facility: [facility] Condition: Poor Discharge Details Reason For Visit: NSTEMI Admit Date/Time: 03/16/25 09:35 Admit Provider: Alberto Monsalve Attending Provider: Alberto Monsalve Primary Care Provider: Kitty Rousseau Hospital Course Hospital Course: Pennie Rodriguez is a 74 year old woman presenting March 16 with 4 days of chest pain now unable to sleep with intolerable pain. Patient has history of lung cancer, left lung lobectomy and is O2 dependent at baseline. She describes the chest pain as burning, located at the bottom of her sternum, only occurring at night. She reports that she is more short of breath than her usual. She denies recent illness, no nausea/vomiting/diarrhea, no abdominal pain. On interview her pain had completely resolved since she was given nitroglycerin by EMS. EMS gave aspirin and nitroglycerin. In the ED, HR 55, BP 207/90, vitals otherwise unremarkable. Initial EKG with nonspecific T abnormalities. Initial troponin elevated 53, rising to 293 after 3 hours. Creatinine 1.75, above baseline of 1.4. Glucose 241. BNP 3042. High proteinuria. CT chest/abdomen/pelvis showed no PE, no acute pathology, left pneumonectomy. [facility] cardiology was consulted, advising NSTEMI treatment with heparin drip, statin and aspirin, and transfer when bed available. PMH includes lung cancer s/p left lobe lobectomy now O2 dependent, COPD, GERD, DM on insulin, CKD, gout, CHF, PVD Patient was admitted for cardiac monitoring pending [facility] bed for cardiology evaluation. Troponin tapered down overnight, total trend 53->140->293->767->777->435 Creatinine continues to be elevated, baseline 1.5, now 1.79 Home Meds and New Rx's Prescriptions: No Action (DME) Nebulizer Qty: 1 0RF Rx Instructions: As directed cholecalciferol (vitamin D3) 25 mcg (1,000 unit) capsule 25 mcg PO DAILY nystatin 100,000 unit/gram ointment 1 applic topical BID Qty: 30 1RF Rx Instructions: Apply under breasts x 1-2 weeks ipratropium-albuterol 0.5 mg-3 mg(2.5 mg base)/3 mL solution for nebulization 3 ml IH Q6H PRN (Reason: wheezing or SOB) Qty: 180 12RF tiotropium bromide [Spiriva with HandiHaler] 18 mcg capsule, w/inhalation device 1 cap Inhalation DAILY Qty: 90 3RF Rx Instructions: for COPD semaglutide 0.25 mg or 0.5 mg (2 mg/3 mL) pen injector 0.25 mg subcut QWEEK Rx Instructions: for 4 weeks magnesium oxide 400 mg magnesium capsule 400 mg PO DAILY Gaviscon Extra Strength 160-105 mg tablet,chewable 4 tab PO HS PRN cyanocobalamin (vitamin B-12) [Vitamin B-12] 1,000 MCG tablet 1,000 mcg PO DAILY docusate sodium [Colace] 100 MG capsule 100 mg PO PRN Proctofoam HC 10 GM foam 10 gm RC PRN Qty: 1 Rx Instructions: as needed for hemorrhoidal inflammation aspirin [Aspir-81] 81 MG tablet,delayed release (DR/EC) 81 mg PO DAILY (DME) Oxygen Tank See Dose Instructions .ROUTE .MEDSUPPLY Qty: 1 Rx Instructions: 2 L as directed fluticasone propionate 50 mcg/actuation spray,suspension 2 spray NS DAILY PRN (Reason: nasal congestion) Qty: 16 1RF atorvastatin 40 mg tablet See Rx Instructions .ROUTE .COMPLEX Qty: 90 3RF Dose Instruction: TAKE 1 TABLET DAILY TO LOWER CHOLESTEROL, REDUCE CARDIOVASCULAR RISK Rx Instructions: TAKE 1 TABLET DAILY TO LOWER CHOLESTEROL, REDUCE ARDIOVASCULAR RISK lisinopril 5 mg tablet 5 mg PO DAILY MDD 15mg Qty: 90 3RF Patient Comments: Pt takes 5mg daily not 15mg. Was reduced due to hyperkalemia Rx Instructions: Add to 10mg for 15mg daily (DME) pen needle, diabetic [Comfort EZ Pen [place]] 31 gauge x 5/16 needle See Dose Instructions .ROUTE .MEDSUPPLY Qty: 300 3RF Dose Instruction: As directed Rx Instructions: TID insulin degludec [Tresiba FlexTouch U-100] 100 unit/mL (3 mL) insulin pen 19 unit SC HS Qty: 15 3RF Apidra SoloStar U-100 Insulin 100 unit/mL insulin pen See Rx Instructions subcut BID Qty: 15 3RF Rx Instructions: 4-10 U per sliding scale subcut twice a day; as directed per sliding scale, rarely for high sugar AC hydrochlorothiazide 12.5 mg tablet 12.5 mg PO DAILY Qty: 90 3RF Rx Instructions: FOR BP CONTROL UNDER 130/80 allopurinol 100 mg tablet 100 mg PO DAILY Patient Comments: from [facility] Nephrology for gout.HE (DME) Diabetic Shoes See Rx Instructions .Route .MEDSUPPLY Qty: 1 0RF Rx Instructions: As directed Tradjenta 5 mg tablet See Rx Instructions .ROUTE .COMPLEX Qty: 90 3RF Dose Instruction: TAKE 1 TABLET DAILY Rx Instructions: TAKE 1 TABLET DAILY (DME) FreeStyle Lite Strips Strip See Rx Instructions .Route Qty: 100 1RF Rx Instructions: Check Blood sugar one time a day.DX:E11.9. Keep A1c below 7 (DME) blood-glucose meter [FreeStyle Lite Meter] Kit See Rx Instructions .Route Qty: 1 0RF Rx Instructions: Check blood sugar one time a day. DX:E11.9. Keep A1c below 7 (DME) lancets [FreeStyle Lancets] 28 gauge misc See Rx Instructions .Route Qty: 100 1RF Rx Instructions: Check blood sugar one time a day. DX:E11.9. Keep A1c below 7 famotidine 40 mg tablet See Rx Instructions .ROUTE .COMPLEX Qty: 90 3RF Dose Instruction: TAKE 1 TABLET DAILY AT BEDTIME NEEDED FOR GASTROESOPHAGEALREFLUX DISEASE FLARE Rx Instructions: TAKE 1 TABLET DAILY AT BEDTIME NEEDED FOR GASTROESOPHAGEALREFLUX DISEASE FLARE glimepiride 1 mg tablet 1 mg PO QAM Qty: 90 3RF (DME) FreeStyle Omkar 14 Day Sensor Kit See Rx Instructions .Route Qty: 6 3RF Rx Instructions: For DM, to maintain A1C < 8 fluticasone propion-salmeterol [Wixela Inhub] 100-50 mcg/dose blister with device 1 inh inhalation BID Qty: 180 6RF albuterol sulfate 90 mcg/actuation HFA aerosol inhaler See Rx Instructions .ROUTE .COMPLEX Qty: 25.5 3RF Dose Instruction: INHALE TWO PUFFS BY MOUTH EVERY 4 HOURS NEEDED FOR SHORTNESS OF BREATH OR WHEEZING DIRECTED FOR COPD, WHEEZING Rx Instructions: INHALE TWO PUFFS BY MOUTH EVERY 4 HOURS NEEDED FOR SHORTNESS OF BREATH OR WHEEZING DIRECTED FOR COPD, WHEEZING Discharge Instructions Activity:: Activity as Tolerated Equipment/Supplies:: No Equipment Needed Diet:: NPO Discharge Orders Discharge Orders: Discharge Order (Routine); Ordered 03/17/25 Ordered By: Alberto Monsalve DS: Summary Time Spent with Patient providing and/or coordinating discharge services: Less than 30 minutes Status at Discharge Functional status at discharge: independent ambulation Overall status at discharge: patient is not back to baseline Mental Status: mental status grossly normal Speech and Movement: speech and movement normal Mood: congruent mood Affect: normal affect Quality:SDOH Health Related Social Needs: Health related social needs inadequate housing transpo insecurity lonely/isolated Health related social needs details 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 Exam Narrative Exam Narrative: General: This is a pleasant woman in no distress HEENT: Normocephalic, atraumatic CV: RRR Resp: CTAB on the right, absent breath sounds on the left Abd: soft, NTND MSK: voluntary motion x4 Neuro: awake, alert, no focal deficits Psych Mental Status: mental status grossly normal Speech and Movement: speech and movement normal Mood: congruent mood Affect: normal affect DS: Data Vitals/I&O Vitals and I&O: Vital Signs Temperature 36.2 C L 03/17/25 07:38 Temperature Source Temporal Artery Scan 03/17/25 07:38 Pulse 85 03/17/25 07:38 Pulse Rhythm Regular 03/16/25 11:15 Pulse 99 H 03/16/25 10:18 Respiratory Rate 16 03/17/25 07:38 Respiratory Effort Normal 03/16/25 11:15 Respiratory Depth Normal 03/16/25 11:15 Respiratory Pattern Normal 03/16/25 11:15 Blood Pressure 101/69 03/17/25 07:38 Blood Pressure Mean 79 03/17/25 07:38 Blood Pressure Position Supine 03/16/25 03:23 Pulse Oximetry 92 03/17/25 07:56 Oxygen Delivery Method Room Air 03/17/25 07:56 Oxygen Flow Rate 0 03/17/25 07:56 Pain Level 0 03/17/25 07:38 Comment pt is wearing nasal cannula no o2 is running 03/17/25 07:38 Intake & Output 03/16/25 03/16/25 03/17/25 11:59 23:59 11:59 Intake Total 50 / 483.833 433.833 / 483.833 156.250 / 156.250 Balance 50 / 483.833 433.833 / 483.833 156.250 / 156.250 Weight 123.3 kg Intake: IV 50 / 243.833 193.833 / 243.833 156.250 / 156.250 Oral 240 / 240 Other: Urine Color Yellow Yellow Urine Appearance Clear Clear Urine Odor Normal Normal Data Completed and Pending Pending Labs at Discharge: 03/16/25 03/16/25 03/16/25 04:05 05:10 05:20 WBC 7.75 RBC 3.91 L Hgb 11.1 L Hct 36.6 MCV 94 MCH 28.4 MCHC 30.3 L RDW 14.2 Plt Count 205 MPV 11.1 H Immature Gran % 0.4 Neutrophils % 77.0 Lymphocytes % 13.0 Monocytes % 7.7 Eosinophils % 1.3 Basophils % 0.6 Nucleated RBC % 0.0 Absolute Neutrophils 5.96 Absolute Lymphocytes 1.01 L Absolute Monocytes 0.60 Absolute Eosinophils 0.10 Absolute Basophils 0.05 PT 10.7 INR 1.1 APTT 24.6 VBG pH 7.34 VBG pCO2 56 H VBG pO2 32 VBG HCO3 30 H VBG Total CO2 28 VBG O2 Saturation 55 VBG Base Excess 4 H VBG Lactate 1.1 Sodium 136 Potassium 3.7 Chloride 106 Carbon Dioxide 29.9 Anion Gap 0.1 L BUN 51 H Creatinine 1.75 H Est GFR (CKD-EPI 2020) 28.23 Glucose 241 H Calcium 9.1 Magnesium 2.3 Total Bilirubin 0.30 AST 11 ALT 9 L Alkaline Phosphatase 134 H Troponin I 53 H* 140 H* NT-Pro-B Natriuret Pep 3042 H Total Protein 7.2 Albumin 4.2 Lipase 37 Urine Color Yellow Urine Clarity Sl Cloudy Urine pH 5.5 Ur Specific Mcdonough 1.015 Urine Protein >=300 H Urine Ketones Negative Urine Blood Small H Urine Nitrite Negative Urine Bilirubin Negative Urine Urobilinogen 0.2 Ur Leukocyte Esterase Moderate H Urine RBC 3-5 H Urine WBC >50 H Ur Epithelial Cells Few Urine Crystals Negative Urine Bacteria Moderate Urine Casts Negative Urine Mucus Moderate Ur Culture Indicated? Yes Urine Glucose Negative 03/16/25 03/16/25 03/16/25 07:07 12:00 15:46 WBC RBC Hgb Hct MCV MCH MCHC RDW Plt Count MPV Immature Gran % Neutrophils % Lymphocytes % Monocytes % Eosinophils % Basophils % Nucleated RBC % Absolute Neutrophils Absolute Lymphocytes Absolute Monocytes Absolute Eosinophils Absolute Basophils PT INR APTT 55.5 H VBG pH VBG pCO2 VBG pO2 VBG HCO3 VBG Total CO2 VBG O2 Saturation VBG Base Excess VBG Lactate Sodium Potassium Chloride Carbon Dioxide Anion Gap BUN Creatinine Est GFR (CKD-EPI 2020) Glucose Calcium Magnesium Total Bilirubin AST ALT Alkaline Phosphatase Troponin I 293 H* 767 H* NT-Pro-B Natriuret Pep Total Protein Albumin Lipase Urine Color Urine Clarity Urine pH Ur Specific Mcdonough Urine Protein Urine Ketones Urine Blood Urine Nitrite Urine Bilirubin Urine Urobilinogen Ur Leukocyte Esterase Urine RBC Urine WBC Ur Epithelial Cells Urine Crystals Urine Bacteria Urine Casts Urine Mucus Ur Culture Indicated? Urine Glucose 03/16/25 03/16/25 03/17/25 17:38 22:30 06:25 WBC RBC Hgb Hct MCV MCH MCHC RDW Plt Count MPV Immature Gran % Neutrophils % Lymphocytes % Monocytes % Eosinophils % Basophils % Nucleated RBC % Absolute Neutrophils Absolute Lymphocytes Absolute Monocytes Absolute Eosinophils Absolute Basophils PT INR APTT 45.9 H 76.6 H VBG pH VBG pCO2 VBG pO2 VBG HCO3 VBG Total CO2 VBG O2 Saturation VBG Base Excess VBG Lactate Sodium Potassium Chloride Carbon Dioxide Anion Gap BUN Creatinine Est GFR (CKD-EPI 2020) Glucose Calcium Magnesium Total Bilirubin AST ALT Alkaline Phosphatase Troponin I 777 H* NT-Pro-B Natriuret Pep Total Protein Albumin Lipase Urine Color Urine Clarity Urine pH Ur Specific Mcdonough Urine Protein Urine Ketones Urine Blood Urine Nitrite Urine Bilirubin Urine Urobilinogen Ur Leukocyte Esterase Urine RBC Urine WBC Ur Epithelial Cells Urine Crystals Urine Bacteria Urine Casts Urine Mucus Ur Culture Indicated? Urine Glucose 03/17/25 03/17/25 06:28 12:00 WBC 6.03 RBC 3.68 L Hgb 10.4 L Hct 34.7 L MCV 94 MCH 28.3 MCHC 30.0 L RDW 14.3 Plt Count 189 MPV 11.3 H Immature Gran % Neutrophils % Lymphocytes % Monocytes % Eosinophils % Basophils % Nucleated RBC % Absolute Neutrophils Absolute Lymphocytes Absolute Monocytes Absolute Eosinophils Absolute Basophils PT INR APTT Pending VBG pH VBG pCO2 VBG pO2 VBG HCO3 VBG Total CO2 VBG O2 Saturation VBG Base Excess VBG Lactate Sodium 139 Potassium 4.2 Chloride 106 Carbon Dioxide 28.1 Anion Gap 4.9 BUN 48 H Creatinine 1.79 H Est GFR (CKD-EPI 2020) 27.51 Glucose 164 H Calcium 9.0 Magnesium Total Bilirubin AST ALT Alkaline Phosphatase Troponin I 435 H* NT-Pro-B Natriuret Pep Total Protein Albumin Lipase Urine Color Urine Clarity Urine pH Ur Specific Mcdonough Urine Protein Urine Ketones Urine Blood Urine Nitrite Urine Bilirubin Urine Urobilinogen Ur Leukocyte Esterase Urine RBC Urine WBC Ur Epithelial Cells Urine Crystals Urine Bacteria Urine Casts Urine Mucus Ur Culture Indicated? Urine Glucose Preliminary micro results at discharge 03/16/25 05:10 Urine - Reflex from Ua Urine Culture - Pending COUNTS INCLUDE 234 BEDS AT THE [facility] All Active Problems (Updated 03/16/25 @ 17:40 by Alberto Monsalve MD) NSTEMI (non-ST elevated myocardial infarction) (Acute) Urinary tract infection (Acute) Myocardial infarct (Chronic) Diabetes mellitus with stage 4 chronic kidney disease (Acute) Gout (Chronic) PVD (peripheral vascular disease) (Chronic) Toe swelling (Acute) Former cigarette smoker (Acute) Chronic hypoxic respiratory failure (Acute) History of depression (Acute) Acute exacerbation of CHF (congestive heart failure) (Acute) Cor pulmonale, chronic (Acute) CKD (chronic kidney disease) stage 4, GFR 15-29 ml/min (Acute) Fall 2023 LUANN Anemia (Chronic) CHF (congestive heart failure) (Chronic) Respiratory failure (Acute) Acute and chronic respiratory failure with hypoxia (Acute) Ventricular trigeminy (Acute) Driving safety issue (Acute) When vertigo is active (she will need RCT as she cannot drive with active vertigo.) >> grounded when vertigo is active.. Vertigo (Acute) Per ER report in [place] Hypertrophic toenail (Acute) Does anyone make HV? [ ] Podiatry PRN Xeroderma (Acute) Hemoglobin A1c above reference range (Acute) Nocturnal polyuria (Acute) Postmenopausal estrogen deficiency (Chronic) Requesting DEXA scan At risk for osteoporosis (Acute) Hx smoking, PPI and prednisone use. Chronic obstructive lung disease (Chronic 02/20/02) FEV1 0.98 (34%PRED, 58% FVC) FOLLOWING Left PNEUMONECTOMY; home O2 since lung surg 2003 Secondary anemia (Acute 01/20/05) Mild improvement, 08/2021 (11.9) .. Hx: due to chemotherapy; PERSISTS 11.5 (08/2015 [facility] 10.8 2016 [facility] [place]; also due to CKD Chronic kidney disease (Acute) stage 3. [facility] Denilson Rendon MD 05/19/18 Decreased stamina (Acute) Fatigue (Acute) Caregiver stress (Chronic) Son @ home, Psych Disorder affecting ADL, including worsening paranoia. Skin lesion of breast (Acute) Appears as shira kerat .. Actinic keratosis (Acute) 10/06/20 destruction of lesion, left cheek, left nasal lip, right paranasal, right nasal bridge Diabetes mellitus (Chronic) dx 06/2003, co-managed ; goal A1c <7.5; most labs at [facility] Confusing mix of meds with recent changes 2' Cr levels being affected. Appreciate re-eval, along with diet review by Trina and Jung! 12/13/17 ik Met with Nephro ([facility]), glad of no microhematuria .. meds and diet reviewed, trialing mild changes, d/c glimepuride. Diabetes mellitus type 2, uncontrolled (Acute 04/09/17) dx 06/2003, co-managed ; goal A1c <7.5; most labs at [facility] Type 2 diabetes mellitus with stage 3 chronic kidney disease, with long-term current use of insulin (Chronic) [facility] [place], goal A1c < 7.5 .. 6.8 today (June 2017)! .. down from 8/7.6/8.2 in 2017. Cr 1.42 03/2017, 1.65 (07/17/17). Apr 2017 [facility] Endo note mentions Nephro referral, placing per 07/17/16 lab results. Stressful life events affecting family and household (Acute) Counseling on health promotion and disease prevention (Acute) Asthma (Acute 05/15/11) Oxygen desaturation (Chronic 03/2004) Family history of colon cancer (Acute 05/15/11) Stasis dermatitis (Acute 05/12/02) Hx of pneumonectomy (Chronic 03/2004) Left lung removed, sent home with oxygen Vitamin D deficiency (Acute 12/26/10) Osteoarthritis (Acute 01/12/10) mild R hip on x-ray/clinical Obesity (Acute 05/12/02) Good weight loss, 290 today .. down from 311 last year. Hyperlipidemia (Acute 08/21/03) Gastroesophageal reflux disease (Acute 05/19/05) CHRONIC PRILOSEC OTC Essential hypertension (Chronic 09/14/03) Hx elevatd DBP, but she monitors closely. Meds tolerated. Low, but asympto, BP today, 01/29/18. Low normal/baseline, 07/2018. ik Medical History Lung cancer Adenocarcinoma of lung (03/22/04) Smoker (05/15/11) QUIT? Renal insufficiency (2017) Seeing Nephro; improved. Surgical History pneumonectomy (04/20/04) Left, [facility] Tonsillectomy and adenoidectomy (03/02/10) Extraction of cataract (~01/2015) [facility] Family History Mother , stroke, pneumonia at age 82. Personal history of malignant neoplasm Father , suicide at age 75. No problems noted. Sister Age: 73 No problems noted. Brother , bowel obstruction at age 46. No problems noted. Social History Smoking/Tobacco Use Status: Former Tobacco Use Smoking risk assessment performed?: Yes Alcohol Intake: former Year quit: 1990 Drug use: Never Substance use type: does not use Household members: children Housing: house Number of Children: 2 number of grandchildren: 1 Communication Needs: None What is your relationship status?: Panel score (0-1 are the most socially isolated patients): 0 What type of physical activity do you participate in: none Seatbelt use: always Drive intox or ride w/intox van driver helper: No Working smoke detector in home: Yes Carbon monox detector in home: Yes Do you feel safe at home: Yes Do you feel safe in your relationship?: Yes Time Spent with Patient Time Spent with Patient: <45 minutes Time was spent: preparing to see the patient(eg.review tests), obtaining and/or reviewing separately otained hiistory, ordering medications,tests, procedures, referring, communicating with other health landcare officer, indepentently interpreting results, counseling the patient and care coordination
[2025-03-17 08:03] VITALS: O2SAT 95
--- NOTE | 2025-03-17 08:04 | RESPIRATORY ---
Pt wears 2L with ambulation at baseline (RA at rest), DME: Rachel, portable tank in room
--- NOTE | 2025-03-17 08:48 | PDOC.CMIN ---
Date of service: 03/17/25 Time of Service: 08:49 Care Management Initial Assmt Initial Assessment Reason for Hospitalization: NSTEMI Functional Status/Living Situation Patient Presentation: Pennie was sitting in a recliner when CM met with her. She is being closely monitored and treated for a NSTEMI and [place] [facility] [place]. Pennie reports feeling stressed, noting that she has her own medical and physical issues and has been finding it hard to take care of herself, while also caring for someone else. She lives in [place] with her son Dyllan, who has special needs. She became tearful during this conversation and shared that despite reaching out to the community for support, she feels she has not received any help. Per pt, her son Dyllan is currently home alone, but is capable of managing his basic needs. His younger brother Antelmo lives in [place] and has been checking in with him by phone. [facility] whom she is waiting a return call. Pennie reports that she attempted to connect with the [facility] for assistance with Medicare questions she has for herself and Dyllan; however, she was told they are fully booked through the end of the enrollment period and unable to see her. She was advised to reach out the the chronic home care assistant at her PCP office for support, which she has done, but yet to received a return call. Patient is agreeable to a referral to [facility], with the hope that they may be able to offer assistance. In the mean time, CM reviewed relaxation techniques such as deep breathing and provided her with a crossword puzzle to help pass the time, as she also NPO and hungry in addition to feeling stressed. Town of Residence: [place] Resides with: Child (Son Dyllan (he is disabled)) Significant Other/Family: Local Natural Supports: Son Dyllan, whom is disabled and she is his primary caregiver. Son Jamie, resides a few hours away, he is supportive by phone Employment Status: Retired Instrumental Activities of Daily Living (ADLs): Independent Medications Medication Management: No Issues/Barriers identified Physical Functioning/Mobility Assistive Device: Cane Advance Directives Advance Directives: Do you have an Advance Directive: N 07/09/12, 00:39 AD On File at [facility]: N 06/20/12, 10:12 Date Asked 03/16/25 03/16/25, 05:24 AD Date Reviewed COLST On File at [facility] COLST Date Scanned Code Status Resuscitation Status Full Code Insurance Coverage/Financial Issues Insurance: Medicare Part A & B - [id number] [facility] - [id number] Care Team Visit Care Team Role Provider Type Kitty Rousseau APRN Primary Care Provider NURSE PRACTITIONER Arun Bowens MD Emergency Provider [facility] STAFF PHYSICIAN Alebrto Monsalve MD Admit Provider [facility] STAFF PHYSICIAN Attending Provider Discharge Anticipated Barriers to Discharge: Bed availability Patient/Family Education Needs: Review discharge instructions, discuss Ask Me Three Transportation: EMS Plan: Transfer [place] [facility] [place] bed availability. Patient will transport via EMS. Social Determinants of Health Screening Social Determinants of health last assessed in clinic: 03/17/25 Will the Patient Participate in the Screening?: Yes Do you worry about having a steady place to live?: no Problems where you live: no known problems In the past 12 months, have you had to go without electric, gas, oil or water in your home?: no 1. Within the past 12 months, we worried whether our food would run out before we got money to buy more.: Never true 2. Within the past 12 months, the food we bought just didn't last and we didn't have money to get more.: Never true Has lack of transportation kept you from medical appointments or from doing things needed for daily living?: no Has anyone in your life made you feel unsafe or unsupported?: no How hard is it for you to pay for the very basics like food, housing, medical care, and heating? Would you say it is:: Not hard at all Do you want help finding or keeping work or a job?: I do not need or want help If for any reason you need help with day-to-day activities such as bathing, preparing meals, shopping, managing finances, etc., do you get the help you need?: I don?t need any help How often do you feel lonely or isolated from those around you?: Never Do you speak a language other than Macedonian at home?: No Does the patient want assistance with any of the above?: No PFSH All Active Problems (Updated 03/16/25 @ 17:40 by Alberto Monsalve MD) NSTEMI (non-ST elevated myocardial infarction) (Acute) Urinary tract infection (Acute) Myocardial infarct (Chronic) Diabetes mellitus with stage 4 chronic kidney disease (Acute) Gout (Chronic) PVD (peripheral vascular disease) (Chronic) Toe swelling (Acute) Former cigarette smoker (Acute) Chronic hypoxic respiratory failure (Acute) History of depression (Acute) Acute exacerbation of CHF (congestive heart failure) (Acute) Cor pulmonale, chronic (Acute) CKD (chronic kidney disease) stage 4, GFR 15-29 ml/min (Acute) Fall 2023 [facility] Anemia (Chronic) CHF (congestive heart failure) (Chronic) Respiratory failure (Acute) Acute and chronic respiratory failure with hypoxia (Acute) Ventricular trigeminy (Acute) Driving safety issue (Acute) When vertigo is active (she will need RCT as she cannot drive with active vertigo.) >> grounded when vertigo is active.. Vertigo (Acute) Per ER report in [place] Hypertrophic toenail (Acute) Does anyone make HV? [ ] Podiatry PRN Xeroderma (Acute) Hemoglobin A1c above reference range (Acute) Nocturnal polyuria (Acute) Postmenopausal estrogen deficiency (Chronic) Requesting DEXA scan At risk for osteoporosis (Acute) Hx smoking, PPI and prednisone use. Chronic obstructive lung disease (Chronic 02/20/02) FEV1 0.98 (34%PRED, 58% FVC) FOLLOWING Left PNEUMONECTOMY; home O2 since lung surg 2003 Secondary anemia (Acute 01/20/05) Mild improvement, 08/2021 (11.9) .. Hx: due to chemotherapy; PERSISTS 11.5 (08/[place] [facility] 10.[address] [facility] [place]; also due to CKD Chronic kidney disease (Acute) stage 3. [facility] Denilson Rendon MD 05/19/18 Decreased stamina (Acute) Fatigue (Acute) Caregiver stress (Chronic) Son @ home, Psych Disorder affecting ADL, including worsening paranoia. Skin lesion of breast (Acute) Appears as shira kerat .. Actinic keratosis (Acute) 10/06/20 destruction of lesion, left cheek, left nasal lip, right paranasal, right nasal bridge Diabetes mellitus (Chronic) dx 06/2003, co-managed ; goal A1c <7.5; most labs at [facility] Confusing mix of meds with recent changes 2' Cr levels being affected. Appreciate re-eval, along with diet review by Trina and Jung! 12/13/17 ik Met with Nephro ([facility] [place] glad of no microhematuria .. meds and diet reviewed, trialing mild changes, d/c glimepuride. Diabetes mellitus type 2, uncontrolled (Acute 04/09/17) dx 06/2003, co-managed ; goal A1c <7.5; most labs at [facility] Type 2 diabetes mellitus with stage 3 chronic kidney disease, with long-term current use of insulin (Chronic) [facility] [place], goal A1c < 7.5 .. 6.8 today (June 2017)! .. down from 8/7.6/8.2 in 2017. Cr 1.42 03/2017, 1.65 (07/17/17). Apr 2017 [facility] Endo note mentions Nephro referral, placing per 07/17/16 lab results. Stressful life events affecting family and household (Acute) Counseling on health promotion and disease prevention (Acute) Asthma (Acute 05/15/11) Oxygen desaturation (Chronic 03/2004) Family history of colon cancer (Acute 05/15/11) Stasis dermatitis (Acute 05/12/02) Hx of pneumonectomy (Chronic 03/2004) Left lung removed, sent home with oxygen Vitamin D deficiency (Acute 12/26/10) Osteoarthritis (Acute 01/12/10) mild R hip on x-ray/clinical Obesity (Acute 05/12/02) Good weight loss, 290 today .. down from 311 last year. Hyperlipidemia (Acute 08/21/03) Gastroesophageal reflux disease (Acute 05/19/05) CHRONIC PRILOSEC OTC Essential hypertension (Chronic 09/14/03) Hx elevatd DBP, but she monitors closely. Meds tolerated. Low, but asympto, BP today, 01/29/18. Low normal/baseline, 07/2018. ik Medical History Lung cancer Adenocarcinoma of lung (03/22/04) Smoker (05/15/11) QUIT? Renal insufficiency (2017) Seeing Nephro; improved. Surgical History pneumonectomy (04/20/04) [place], [facility] Tonsillectomy and adenoidectomy (03/02/10) Extraction of cataract (~01/2015) [facility] Family History Mother , stroke, pneumonia at age 82. Personal history of malignant neoplasm Father , suicide at age 75. No problems noted. Sister Age: 73 No problems noted. Brother , bowel obstruction at age 46. No problems noted. Social History Smoking/Tobacco Use Status: Former Tobacco Use Smoking risk assessment performed?: Yes Alcohol Intake: former Year quit: 1990 Drug use: Never Substance use type: does not use Household members: children Housing: house Number of Children: 2 number of grandchildren: 1 Communication Needs: None What is your relationship status?: Panel score (0-1 are the most socially isolated patients): 0 What type of physical activity do you participate in: none Seatbelt use: always Drive intox or ride w/intox delivery motorcycle driver: No Working smoke detector in home: Yes Carbon monox detector in home: Yes Do you feel safe at home: Yes Do you feel safe in your relationship?: Yes
[2025-03-17 11:08] VITALS: BP 121/73; PULSE 84; RESP 16; TEMP 36.6; O2SAT 99
[2025-03-17 13:03] LABS: PTT Activated 88.4 sec (20.6-30.2)
[2025-03-17] MEDS: Lisinopril 5 MG TAB PO (14:47)
--- NOTE | 2025-03-17 15:52 | NUR.NOTE ---
Nursing Note: Report called to Kushal RUANO at [facility] [place] 1553; reviewed clinical and historical data, labs and v/s. Pt to be transferred to room: L4WB rm 472 A for Cardiac Catheterization. FAmily and patient updated.
--- NOTE | 2025-03-17 16:01 | CMDISCH_ITS ---
Date of service: 03/17/25 Time of Service: 16:01 LACE Index Scoring Tool Questions: Length of Stay (in days): 1 Was the patient admitted via the E.D.?: Yes Comorbidities: Previous M.I., PVD, Diabetes w/o Complication, Congestive Heart Failure, with End Organ Damage and Liver or Renal Disease E.D. Visits: 1 Answers: Total Score: 10 Risk of Readmission: High Risk Care Management Discharge Plan Reason for Hospitalization: NSTEMI Discharge Plan: Pennie is being transferred to [facility] [place], she is being transported via EMS. Patient/Family Education Needs: Review plan to transfer, Discuss ask me three. Services Needed at Discharge: Transportation (EMS) SDOH Health Related Social Needs: Health related social needs inadequate housing transpo insecurity lonely/isolated Health related social needs details 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
== END 2025-03-17 16:43 | disposition short-term general hospital (02) | DRG 281 ==
LOC: ER 08:30 → MS 11:04
PROVIDERS: Family Medicine; Student in an Organized Health Care Education/Training Program; Admitting Provider Family Medicine; Emergency Provider General Practice; PCP Nurse Practitioner Family; Responsible Provider Family Medicine; Visit Provider Family Medicine
DX: I21.4 Non-ST elevation (NSTEMI) myocardial infarction (principal); N18.30 Chronic kidney disease, stage 3 unspecified; E11.22 Type 2 diabetes mellitus with diabetic chronic kidney disease; Z79.4 Long term (current) use of insulin; J44.9 Chronic obstructive pulmonary disease, unspecified; Z90.2 Acquired absence of lung [part of]; Z79.85 Long-term (current) use of injectable non-insulin antidiabetic drugs; M10.9 Gout, unspecified; I13.0 Hypertensive heart and chronic kidney disease with heart failure and stage 1 through stage 4 chronic kidney disease, or unspecified chronic kidney disease; J96.10 Chronic respiratory failure, unspecified whether with hypoxia or hypercapnia; Z68.42 Body mass index [BMI] 45.0-49.9, adult; Z59.10 Inadequate housing, unspecified; I50.9 Heart failure, unspecified; K21.9 Gastro-esophageal reflux disease without esophagitis; I73.9 Peripheral vascular disease, unspecified; Z99.81 Dependence on supplemental oxygen; I49.3 Ventricular premature depolarization; I25.2 Old myocardial infarction; Z87.891 Personal history of nicotine dependence; I27.81 Cor pulmonale (chronic); D64.9 Anemia, unspecified; E55.9 Vitamin D deficiency, unspecified; M16.11 Unilateral primary osteoarthritis, right hip; E66.9 Obesity, unspecified; Z85.118 Personal history of other malignant neoplasm of bronchus and lung; Z59.82 Transportation insecurity; R45.89 Other symptoms and signs involving emotional state
CPT/HCPCS: 00123; 36415; 36416; 71275; 74177; 80048; 80053; 82805; 82962; 83690; 85027; 87077; 93005; 96365; 96375; 99291; 81003; 81015; 83605; 83735; 83880; 84484; 85025; 85610; 85730; 87086; 87186; 93010; 94760; 99222; 99238; J0696; J1644; J1815; J2405; J3490